=== PATIENT | male | born 1945 | race Caucasian/White ===

== ENCOUNTER 2017-12-27 06:05 | Day surgery (SDC) | payer OTHER ==
[2017-12-27] MEDS ORDERED: Ringers Lactate 1,000 ML IV ONE (07:07)
[2017-12-27] MEDS ORDERED: LIDOCAINE 1% MPF 5 ML VIAL ONE (07:41)
[2017-12-27] MEDS ORDERED: PROPOFOL 200 MG/20 ML VIAL IV ONE (07:41)
--- NOTE | 2017-12-27 08:10 | ENDO RPT ---
[address], [address] COLONOSCOPY PROCEDURE REPORT EXAM DATE: 12/27/2017 PATIENT NAME: Shea Campbell MR #: [id number] BIRTHDATE: 1945 ATTENDING: Iglesia Jefferson MD STATUS: outpatient RN FIELD: Daniella Alcala and Kym Benson RN INDICATIONS: The patient is a 72 yr old Male here for a colonoscopy due to bright red bleeding PROCEDURE PERFORMED: Colonoscopy with biopsy - cold polypectomy MEDICATIONS: Per Anesthesia. ESTIMATED BLOOD LOSS: None CONSENT: The patient understands the risks and benefits of the procedure and understands that these risks include, but are not limited to: sedation, allergic reaction, infection, perforation and/or bleeding. Alternative means of evaluation and treatment include, among others: physical exam, x-rays, and/or surgical intervention. The patient elects to proceed with this endoscopic procedure. DESCRIPTION OF PROCEDURE: During intra-op preparation period all mechanical medical equipment was checked for proper function. Hand hygiene and appropriate measures for infection prevention was taken. Procedure, possible complications, alternatives including, but not limited to possibility of bleeding, perforation, tear, infection, sepsis, need for surgery, need for blood transfusion, were explained to the patient. After the risks, benefits and alternatives of the procedure were thoroughly explained, Informed consent was verified, confirmed and timeout was successfully executed by the treatment team. The patient was placed in the left lateral position. A digital rectal exam was performed and revealed external hemorrhoids. After appropriate level of anesthesia, the scope was passed. The EC-[id number] ([id number]) endoscope was introduced through the anus and advanced to the cecum, which was identified by transillumination from the light source, the appendix, and the ileocecal valve. The quality of the prep was good. The instrument was then slowly withdrawn as the colon was fully examined. Scope withdrawal time was . COLON FINDINGS: A sessile polyp was found less than 0.3 cm in size approximately 120cm from anal verge. Retroflexed views revealed no abnormalities. The scope was then completely withdrawn from the patient and the procedure terminated. ADVERSE EVENTS: There were no complications. IMPRESSIONS: 1. Sessile polyp was found; polypectomy was performed in a piecemeal fashion using hot forceps 2. External hemorrhoids 3. Internal hemorrhoids RECOMMENDATIONS: 1. await biopsy results 2. follow-up: office 1 week(s) RECALL: for Colonoscopy, pending biopsy results. Iglesia Jefferson MD eSigned: Iglesia Jefferson MD 12/27/2017 8:09 AM cc: CPT CODES: ICD9 CODES: PATIENT NAME: Shea CampbellKiesha MR#: [id number]
== END 2017-12-27 08:43 | disposition home or self-care (01) ==
LOC: OR 06:05
PROVIDERS: ATTEND Surgery
PROC: 0DBE8ZX Excision of Large Intestine, Via Natural or Artificial Opening Endoscopic, Diagnostic (ICD-10-PCS; principal; 2017-12-27 07:30)
DX: D12.6 Benign neoplasm of colon, unspecified (principal); K64.8 Other hemorrhoids; K64.4 Residual hemorrhoidal skin tags; I25.10 Atherosclerotic heart disease of native coronary artery without angina pectoris; I25.2 Old myocardial infarction
CPT/HCPCS: 88305; J2704

== ENCOUNTER 2018-06-30 08:30 | Emergency (ER) | payer OTHER ==
[2018-06-30] MEDS ORDERED: BENZONATATE 100 MG CAP PO ONE (09:03)
--- NOTE | 2018-06-30 09:41 | EDPHYS ---
Physician Documentation [facility] Name: Shea Campbell Age: 72 yrs Sex: Male : 1945 Arrival Date: 06/30/2018 Time: 08:33 Bed 8 Private MD: ED Physician Jose Villa HPI: 06/30 09:18 This 72 yrs old Male presents to ER via Ambulatory with complaints of Cough, kb Congestion. 09:18 The patient or guardian reports cough, that is intermittent, described as moderate, kb with no sputum. Onset: The symptoms/episode began/occurred yesterday. Severity of symptoms: At their worst the symptoms were moderate, in the emergency department the symptoms are unchanged. Modifying factors: The symptoms are alleviated by nothing, the symptoms are aggravated by nothing. Associated signs and symptoms: Pertinent positives: sneezing, Pertinent negatives: chest pain, diarrhea, ear ache, fever, nausea, rhinorrhea, sore throat, vomiting. The patient has experienced a previous episode, approximately 3 months ago. The patient has not recently seen a physician. Pt reports cough that started last night. Denies fever, chills, chest pain, rhinorrhea or any other symptoms. Reports similar symptoms [address] Sandhu gave him an antibiotic so he wanted to come today to get an antibiotic started. States he recently got a new housecleaner floor for his c-pap machine and thinks that has something to do with his symptoms since this is the second time he has had this cough since then. Historical: - Allergies: 08:42 No Known Allergies; aa5 - Home Meds: 08:42 carvedilol oral oral [Active]; escitalopram oxalate oral oral [Active]; atorvastatin aa5 oral oral [Active]; Plavix Oral [Active]; fenofibrate oral oral [Active]; Omeprazole Oral [Active]; Levoxyl Oral [Active]; Ecotrin Oral [Active]; - PMHx: 08:42 Hyperlipidemia; Hypertension; Thyroid problem; aa5 - Immunization history:: Adult Immunizations up to date. - Ebola Screening: : No symptoms or risks identified at this time. - Social history:: Smoking status: Patient/guardian denies using tobacco. ROS: 09:17 Constitutional: Negative for fever, chills, and weight loss, ENT: Negative for injury, kb pain, and discharge, Neck: Negative for injury, pain, and swelling, Cardiovascular: Negative for chest pain, palpitations, and edema, Abdomen/GI: Negative for abdominal pain, nausea, vomiting, diarrhea, and constipation, MS/Extremity: Negative for injury and deformity, Skin: Negative for injury, rash, and discoloration, Neuro: Negative for headache, weakness, numbness, tingling, and seizure. 09:17 Respiratory: Positive for cough, with no reported sputum, Negative for dyspnea on exertion, hemoptysis, orthopnea, pleurisy, shortness of breath, sputum production, wheezing. Exam: 09:17 Constitutional: This is a well developed, well nourished patient who is awake, alert, kb and in no acute distress. Head/Face: Normocephalic, atraumatic. ENT: Nares patent. No nasal discharge, no septal abnormalities noted. Tympanic membranes are normal and external auditory canals are clear. Oropharynx with no redness, swelling, or masses, exudates, or evidence of obstruction, uvula midline. Mucous membranes moist. Neck: Trachea midline, no thyromegaly or masses palpated, and no cervical lymphadenopathy. Supple, full range of motion without nuchal rigidity, or vertebral point tenderness. No Meningismus. Chest/axilla: Normal chest wall appearance and motion. Nontender with no deformity. No lesions are appreciated. Cardiovascular: Regular rate and rhythm with a normal S1 and S2. No gallops, murmurs, or rubs. Normal PMI, no JVD. No pulse deficits. Respiratory: Lungs have equal breath sounds bilaterally, clear to auscultation and percussion. No rales, rhonchi or wheezes noted. No increased work of breathing, no retractions or nasal flaring. Abdomen/GI: Soft, non-tender, with normal bowel sounds. No distension or tympany. No guarding or rebound. No evidence of tenderness throughout. Skin: Warm, dry with normal turgor. Normal color with no rashes, no lesions, and no evidence of cellulitis. MS/ Extremity: Pulses equal, no cyanosis. Neurovascular intact. Full, normal range of motion. Neuro: Awake and alert, GCS 15, oriented to person, place, time, and situation. Cranial nerves II-XII grossly intact. Motor strength 5/5 in all extremities. Sensory grossly intact. Cerebellar exam normal. Normal gait. Vital Signs: 08:38 BP 145 / 80; Pulse 73; Resp 19; Temp 98.3(O); Pulse Ox 97% on R/A; Weight 77.11 kg (R); ae3 09:19 BP 135 / 75; Pulse 66; Resp 19; Temp 98.3(O); Pulse Ox 95% on R/A; la1 MDM: 08:46 Patient medically screened. kb 09:17 Data reviewed: vital signs, nurses notes. Data interpreted: Pulse oximetry: on room air kb is 99 %. Interpretation: normal. 09:40 Counseling: I had a detailed discussion with the patient and/or guardian regarding: the kb historical points, exam findings, and any diagnostic results supporting the discharge/admit diagnosis, radiology results, the need for outpatient follow up, a family practitioner, to return to the emergency department if symptoms worsen or persist or if there are any questions or concerns that arise at home. 06/30 08:47 Order name: Chest Pa And Lat (2 Views) XRAY; Complete Time: 10:17 kb Administered Medications: 08:49 Drug: Tessalon Perle 100 mg Route: PO; ae3 09:47 Follow up: Response: No adverse reaction ae3 Disposition: 22:02 Co-signature as Attending Physician, Jose Villa MD Available for consultation at ps1 all times. . Disposition: 06/30/18 09:40 Discharged to Home. Impression: Cough. - Condition is Stable. - Discharge Instructions: Cough, Adult, [id number]. - Prescriptions for Tessalon Perles 100 mg Oral Capsule - take 1 capsule by ORAL route every 8 hours As needed; 15 capsule. - Medication Reconciliation Form, Thank You Letter, Antibiotic Education, Prescription Opioid Use form. - Follow up: Private Physician; When: 2 - 3 days; Reason: Recheck today's complaints, Continuance of care, Re-evaluation by your physician. Follow up: Emergency Department; When: As needed; Reason: Worsening of condition. Signatures: Dispatcher [employer] Mirna Casanova, EVANSC CRUZ-Thania Barba, RN RN aa5 Will Mathew RN RN la1 Jose Villa MD MD [facility] Areli Godfrey ae3 Corrections: (The following items were deleted from the chart) 09:51 09:40 06/30/2018 09:40 Discharged to Home. Impression: Cough. Condition is Stable. ae3 Forms are Medication Reconciliation Form, Thank You Letter, Antibiotic Education, Prescription Opioid Use. Follow up: Private Physician; When: 2 - 3 days; Reason: Recheck today's complaints, Continuance of care, Re-evaluation by your physician. Follow up: Emergency Department; When: As needed; Reason: Worsening of condition. kb
--- NOTE | 2018-06-30 09:41 | ER ---
Nurse's Notes [facility] Name: Shea Campbell Age: 72 yrs Sex: Male : 1945 Arrival Date: 06/30/2018 Time: 08:33 Bed 8 Private MD: Diagnosis: Cough Presentation: 06/30 08:40 Presenting complaint: Patient states: cough that began . Pt states "I had the aa5 same cough 3 months ago and I was treated for it but it came back yesterday". 08:40 Transition of care: patient was not received from another setting of care. Onset of aa5 symptoms was June 2018. Risk Assessment: Do you want to hurt yourself or someone else? Patient reports no desire to harm self or others. Initial Sepsis Screen: Does the patient meet any 2 criteria? No. Patient's initial sepsis screen is negative. Does the patient have a suspected source of infection? No. Patient's initial sepsis screen is negative. Care prior to arrival: None. 08:40 Method Of Arrival: Ambulatory aa5 08:40 Acuity: LELA 3 aa5 Historical: - Allergies: 08:42 No Known Allergies; aa5 - Home Meds: 08:42 carvedilol oral oral [Active]; escitalopram oxalate oral oral [Active]; atorvastatin aa5 oral oral [Active]; Plavix Oral [Active]; fenofibrate oral oral [Active]; Omeprazole Oral [Active]; Levoxyl Oral [Active]; Ecotrin Oral [Active]; - PMHx: 08:42 Hyperlipidemia; Hypertension; Thyroid problem; aa5 - Immunization history:: Adult Immunizations up to date. - Ebola Screening: : No symptoms or risks identified at this time. - Social history:: Smoking status: Patient/guardian denies using tobacco. Screenin:24 Abuse screen: Denies threats or abuse. Nutritional screening: No deficits noted. la1 Tuberculosis screening: No symptoms or risk factors identified. Fall Risk None identified. Assessment: 09:03 General: Appears in no apparent distress. comfortable, Behavior is calm, cooperative. la1 Pain: Complains of pain in uvula, left aspect of posterior pharynx and right aspect of posterior pharynx Pain currently is 1 out of 10 on a pain scale. Neuro: Level of Consciousness is awake, alert, obeys commands, Oriented to person, place, time, situation, Appropriate for age. Cardiovascular: Heart tones S1 S2 present Patient's skin is warm and dry. Rhythm is regular. Respiratory: Reports cough that is productive, yellow mucous Airway is patent Respiratory effort is even, unlabored, Breath sounds are clear bilaterally. Respiratory: Reports patient states when he inhales deeply, it triggers increased coughing. GI: No signs and/or symptoms were reported involving the gastrointestinal system. : No signs and/or symptoms were reported regarding the genitourinary system. EENT: Throat is clear. EENT: Reports nasal congestion nasal discharge. Derm: Skin is intact, Skin is dry, Skin is pink, warm \\T\\ dry. Skin temperature is warm. Musculoskeletal: No signs and/or symptoms reported regarding the musculoskeletal system. 09:36 Reassessment: Patient appears in no apparent distress at this time. No changes from ae3 previously documented assessment. Patient and/or family updated on plan of care and expected duration. Pain level reassessed. Vital Signs: 08:38 BP 145 / 80; Pulse 73; Resp 19; Temp 98.3(O); Pulse Ox 97% on R/A; Weight 77.11 kg (R); ae3 09:19 BP 135 / 75; Pulse 66; Resp 19; Temp 98.3(O); Pulse Ox 95% on R/A; la1 ED Course: 08:33 Patient arrived in ED. mr 08:39 Bill MirnaDEVEN milton [facility]. kb 08:39 Jose Villa MD is Attending Physician. kb 08:40 Arm band placed on Patient placed in an exam room, on a stretcher. aa5 08:43 Bridgette Nieto, RN is Primary Nurse. ph 08:48 Triage completed. aa5 08:58 Patient moved to radiology via wheelchair. ae3 09:03 Chest Pa And Lat (2 Views) XRAY In Process Unspecified. EDMS 09:03 Patient moved back from radiology. la1 09:18 Bed in low position. Call light in reach. Adult w/ patient. pvc monitor on. Pulse la1 ox on. 09:50 No provider procedures requiring assistance completed. Patient did not have IV access ae3 during this emergency room visit. Administered Medications: 08:49 Drug: Tessalon Perle 100 mg Route: PO; ae3 09:47 Follow up: Response: No adverse reaction ae3 Outcome: 09:40 Discharge ordered by MD. diehl 09:50 Discharged to home ambulatory, with significant other. ae3 09:50 Condition: stable 09:50 Discharge instructions given to patient, significant other, Instructed on discharge instructions, follow up and referral plans. medication usage, Demonstrated understanding of instructions, follow-up care, Prescriptions given X 1. 09:51 Patient left the ED. ae3 Signatures: Dispatcher [employer] EDMS Mirna Khan, DEVEN ACTIVE DIRECTORY ARCHITECT-Antonette Diggs mr Gray, Thania, RN RN aa5 Will Mathew RN RN laBridgette Montes De Oca RN RN Areli Weir ae3
--- NOTE | 2018-06-30 10:13 | RAD REPORT ---
EXAM DESCRIPTION: Lizzeth De La Cruz (2 Views)06/30/2018 9:04 am CLINICAL HISTORY: Cough COMPARISON: March 2018 FINDINGS: The lungs appear clear of acute infiltrate. The heart is normal size IMPRESSION: No acute abnormalities displayed
== END 2018-06-30 09:51 | disposition home or self-care (01) ==
LOC: ER 08:30
DX: R05 Cough (principal); E78.5 Hyperlipidemia, unspecified; I10 Essential (primary) hypertension
CPT/HCPCS: 71046; 99284

== ENCOUNTER 2020-07-01 04:29 | Emergency (ER) | payer OTHER ==
--- NOTE | 2020-07-01 06:53 | EDPHYS ---
Physician Documentation [facility] Name: Shea Campbell Age: 74 yrs Sex: Male : 1945 Arrival Date: 07/01/2020 Time: 04:35 Bed 13 Private MD: Colt Sandhu R ED Physician Denzel Preciado HPI: 07/01 05:15 This 74 yrs old Male presents to ER via Wheelchair with complaints of Fall rn Injury, Head Injury-Adult. 05:15 Details of fall: The patient fell from an upright position. Onset: The symptoms/episode rn began/occurred just prior to arrival. Associated injuries: The patient sustained injury to the head. Severity of symptoms: At their worst the symptoms were mild, in the emergency department the symptoms are unchanged. It is unknown whether or not the patient has had similar symptoms in the past. The patient has not recently seen a physician. Reports got out of bed, fell, hit window sill, woke up on ground. states has vascular dementia and can have hallucinations at times, especially at night. Reports mild pain to right forehead, but no vision changes/focal neuro complaint/vomiting. . Historical: - Allergies: 04:54 No Known Allergies; bb - Home Meds: 04:54 atorvastatin 80 mg oral tab 1 tab once daily [Active]; carvedilol 12.5 mg oral tab 1 bb tab 2 times per day [Active]; clopidogrel 75 mg oral tab 1 tab once daily [Active]; fenofibrate 145 mg daily Oral [Active]; Levoxyl 25 mcg oral tab 1 tab once daily [Active]; donepezil 10 mg oral tab 1 tab twice a day [Active]; memantine 10 mg oral tab 1 tab 2 times per day [Active]; bupropion HCl 150 mg Oral Tb24 1 tab once daily [Active]; omeprazole 20 mg oral TbEC daily [Active]; Ecotrin 325 mg oral TbEC once daily [Active]; escitalopram oxalate 20 mg oral tab once daily [Active]; Magnesium Oxide Oral [Active]; Simeon Red [Active]; Clonazepam Oral [Active]; - PMHx: 04:54 Hyperlipidemia; Hypertension; Thyroid problem; vascular dementia; bb - Immunization history: Last tetanus immunization: unknown. - Social history:: Smoking status: Patient denies any tobacco usage or history of. - Family history:: not pertinent. - Hospitalizations: : No recent hospitalization is reported. ROS: 05:15 Constitutional: Negative for fever, chills, and weight loss, Eyes: Negative for injury, rn pain, redness, and discharge, Neck: Negative for injury, pain, and swelling, Cardiovascular: Negative for chest pain, palpitations, and edema, Respiratory: Negative for shortness of breath, cough, wheezing, and pleuritic chest pain, Abdomen/GI: Negative for abdominal pain, nausea, vomiting, diarrhea, and constipation, Back: Negative for injury and pain, MS/Extremity: Negative for injury and deformity, Skin: Negative for injury, rash, and discoloration, Neuro: + headache Exam: 05:15 Constitutional: This is a well developed, well nourished patient who is awake, alert, rn and in no acute distress. Head/Face: + moderate right forehead hematoma without laceration along hairline Eyes: Pupils equal round and reactive to light, extra-ocular motions intact. Lids and lashes normal. Conjunctiva and sclera are non-icteric and not injected. Cornea within normal limits. Periorbital areas with no swelling, redness, or edema. Neck: No midline tenderness or swelling Cardiovascular: Bradycardic, regular. No pulse deficits. Respiratory: No increased work of breathing, no retractions or nasal flaring. Abdomen/GI: Soft, non-tender MS/ Extremity: Pulses equal, no cyanosis. Neurovascular intact. Full, normal range of motion. Equal circumference. Neuro: Awake and alert, GCS 15, oriented to person, place, and situation. Cranial nerves II-XII grossly intact. Motor strength 5/5 in all extremities. Sensory grossly intact. Cerebellar exam normal. Vital Signs: 04:47 BP 147 / 78; Pulse 58; Resp 16 S; Temp 98(O); Pulse Ox 97% on R/A; Weight 97.07 kg (R); bb Height 5 ft. 10 in. (177.80 cm) (R); Pain 5/10; 07:08 BP 132 / 74; Pulse 54; Resp 16; Pulse Ox 99% on R/A; jm8 04:47 Body Mass Index 30.71 (97.07 kg, 177.80 cm) bb [place] Coma Score: 04:47 Eye Response: spontaneous(4). Verbal Response: oriented(5). Motor Response: obeys bb commands(6). Total: 15. Trauma Score (Adult): 04:47 Eye Response: spontaneous(1); Verbal Response: oriented(1); Motor Response: obeys bb commands(2); Systolic BP: > 89 mm Hg(4); Respiratory Rate: 10 to 29 per min(4); [place] Score: 15; Trauma Score: 12 MDM: 05:05 Patient medically screened. rn 06:49 Differential diagnosis: abrasion, closed head injury, contusion. Data reviewed: vital josefina signs, nurses notes, radiologic studies, CT scan. Data interpreted: quality assurance monitor body: rate is 58 beats/min, rhythm is regular, Pulse oximetry: on room air is 98 %. Counseling: I had a detailed discussion with the patient and/or guardian regarding: the historical points, exam findings, and any diagnostic results supporting the discharge/admit diagnosis. 07/01 05:06 Order name: CT Head C Spine rn 07/01 06:49 Order name: Ice pack josefina Administered Medications: No medications were administered Disposition: 07/01/20 06:53 Discharged to Home. Impression: Superficial injury of head - scalp and forehead hematoma, Fall due to bumping against object, Dementia in other diseases classified elsewhere - Vascular. - Condition is Stable. - Discharge Instructions: Dementia, Head Injury, Adult, Hematoma, Hematoma, [id number], Fall Prevention in the Home, [id number], Head Injury, Adult, Iyhd-xc-Bobc, Dementia, [id number]-[id number]. - Medication Reconciliation Form, Thank You Letter, Antibiotic Education, Prescription Opioid Use form. - Follow up: Colt Sandhu MD; When: 2 - 3 days; Reason: Recheck today's complaints, Continuance of care, Re-evaluation by your physician. - Problem is new. - Symptoms have improved. Signatures: Dispatcher [employer] EDDenzel Hatch MD MD cha Ballard, Brenda RN RN Dwaine Giang MD MD rn Malcaba, Joseph RN RN jm8 Corrections: (The following items were deleted from the chart) 06:53 06:53 07/01/2020 06:53 Discharged to Home. Impression: Superficial injury of head - josefina scalp and forehead hematoma; Fall due to bumping against object. Condition is Stable. Forms are Medication Reconciliation Form, Thank You Letter, Antibiotic Education, Prescription Opioid Use. Follow up: Colt Sandhu; When: 2 - 3 days; Reason: Recheck today's complaints, Continuance of care, Re-evaluation by your physician. Problem is new. Symptoms have improved. josefina 07:09 06:53 07/01/2020 06:53 Discharged to Home. Impression: Superficial injury of head - jm8 scalp and forehead hematoma; Fall due to bumping against object; Dementia in other diseases classified elsewhere - Vascular. Condition is Stable. Forms are Medication Reconciliation Form, Thank You Letter, Antibiotic Education, Prescription Opioid Use. Follow up: Colt Sandhu; When: 2 - 3 days; Reason: Recheck today's complaints, Continuance of care, Re-evaluation by your physician. Problem is new. Symptoms have improved. josefina
--- NOTE | 2020-07-01 06:53 | ER ---
Nurse's Notes [facility] Name: Shea Campbell Age: 74 yrs Sex: Male : 1945 Arrival Date: 07/01/2020 Time: 04:35 Bed 13 Private MD: Colt Sandhu R Diagnosis: Superficial injury of head-scalp and forehead hematoma;Fall due to bumping against object;Dementia in other diseases classified elsewhere-Vascular Presentation: 07/01 04:47 Chief complaint: Spouse and/or significant other states: pt fell out of bed at approx bb 0300 this morning not sure is he had LOC now has large bump on forehead and pain in head and around right eye. Care prior to arrival: None. Mechanism of Injury: Fall. Trauma event details: Injury occurred in the [facility], Injury occurred: at home. Injury occurred: July 01, 2020. 04:47 Acuity: LELA 3 bb 04:47 Method Of Arrival: Wheelchair bb 04:50 Coronavirus screen: At this time, the client does not indicate any symptoms associated bb with coronavirus-19. Ebola Screen: No symptoms or risks identified at this time. Initial Sepsis Screen: Does the patient meet any 2 criteria? No. Patient's initial sepsis screen is negative. Does the patient have a suspected source of infection? No. Patient's initial sepsis screen is negative. Risk Assessment: Do you want to hurt yourself or someone else? Patient reports no desire to harm self or others. Onset of symptoms was July 01, 2020. Trauma Activation: Not Applicable Physician: ED Physician; Name: ; Notified At: ; Arrived At: Physician: General Surgeon; Name: ; Notified At: ; Arrived At: Physician: Radiology; Name: ; Notified At: ; Arrived At: Physician: Respiratory; Name: ; Notified At: ; Arrived At: Physician: Lab; Name: ; Notified At: ; Arrived At: Historical: - Allergies: 04:54 No Known Allergies; bb - Home Meds: 04:54 atorvastatin 80 mg oral tab 1 tab once daily [Active]; carvedilol 12.5 mg oral tab 1 bb tab 2 times per day [Active]; clopidogrel 75 mg oral tab 1 tab once daily [Active]; fenofibrate 145 mg daily Oral [Active]; Levoxyl 25 mcg oral tab 1 tab once daily [Active]; donepezil 10 mg oral tab 1 tab twice a day [Active]; memantine 10 mg oral tab 1 tab 2 times per day [Active]; bupropion HCl 150 mg Oral Tb24 1 tab once daily [Active]; omeprazole 20 mg oral TbEC daily [Active]; Ecotrin 325 mg oral TbEC once daily [Active]; escitalopram oxalate 20 mg oral tab once daily [Active]; Magnesium Oxide Oral [Active]; Simeon Red [Active]; Clonazepam Oral [Active]; - PMHx: 04:54 Hyperlipidemia; Hypertension; Thyroid problem; vascular dementia; bb - Immunization history: Last tetanus immunization: unknown. - Social history:: Smoking status: Patient denies any tobacco usage or history of. - Family history:: not pertinent. - Hospitalizations: : No recent hospitalization is reported. Screenin:08 Abuse screen: Denies threats or abuse. Denies injuries from another. Nutritional jm8 screening: No deficits noted. Tuberculosis screening: No symptoms or risk factors identified. Fall Risk Fall in past 12 months (25 points). Primary Survey: 05:08 NO uncontrolled hemorrhage observed. A: The patient is alert. Airway: patent, No jm8 supplemental oxygen in use on arrival. Trachea midline. Breathing/Chest: Respiratory pattern: regular, Respiratory effort: spontaneous, unlabored. Circulation: Skin color: pink, Skin temperature: warm. Disability Alert. Exposure/Environment: A warming method has been applied: A warm blanket has been provided to the patient. Reassessment Airway Airway Patent Oxygen No O2 Breathing/Chest Respiratory pattern Regular Respiratory effort Spontaneous Unlabored Circulation Color Addis Temperature Warm Disability Alert. Assessment: 05:09 General: Appears in no apparent distress. comfortable, Behavior is calm, cooperative, jm8 appropriate for age. Pain: Complains of pain in forehead Pain currently is 2 out of 10 on a pain scale. Quality of pain is described as throbbing, Pain began 2 hours ago. Also complains of no other associated symptoms. Neuro: No deficits noted. Level of Consciousness is awake, alert, obeys commands, Oriented to person, place, time. EENT: No deficits noted. Cardiovascular: No deficits noted. Respiratory: No deficits noted. Airway is patent Trachea midline Respiratory effort is even, unlabored. GI: No deficits noted. : No deficits noted. Derm: No deficits noted. Musculoskeletal: No deficits noted. Vital Signs: 04:47 BP 147 / 78; Pulse 58; Resp 16 S; Temp 98(O); Pulse Ox 97% on R/A; Weight 97.07 kg (R); bb Height 5 ft. 10 in. (177.80 cm) (R); Pain 5/10; 07:08 BP 132 / 74; Pulse 54; Resp 16; Pulse Ox 99% on R/A; jm8 04:47 Body Mass Index 30.71 (97.07 kg, 177.80 cm) bb Hitesh Coma Score: 04:47 Eye Response: spontaneous(4). Verbal Response: oriented(5). Motor Response: obeys bb commands(6). Total: 15. Trauma Score (Adult): 04:47 Eye Response: spontaneous(1); Verbal Response: oriented(1); Motor Response: obeys bb commands(2); Systolic BP: > 89 mm Hg(4); Respiratory Rate: 10 to 29 per min(4); Hitesh Score: 15; Trauma Score: 12 ED Course: 04:35 Patient arrived in ED. es 04:35 Colt Sandhu MD is Private Physician. es 04:48 Triage completed. bb 04:54 Arm band placed on Patient placed in an exam room, on a stretcher, on pulse oximetry. bb Family accompanied patient. 05:05 Dwaine Campos MD is Attending Physician. rn 05:11 Patient has correct armband on for positive identification. Placed in gown. Bed in low jm8 position. Call light in reach. Side rails up X2. Adult w/ patient. 05:12 Patient maintains SpO2 saturation greater than 95% on room air. Thermoregulation: warm jm8 blanket given to patient. 05:24 CT Head C Spine In Process Unspecified. EDMS 06:46 Attending Physician role handed off by Dwaine Campos MD josefina 06:46 Denzel Preciado MD is Attending Physician. josefina 06:51 Colt Sandhu MD is Referral Physician. josefina 07:09 No provider procedures requiring assistance completed. Patient did not have IV access jm8 during this emergency room visit. Administered Medications: No medications were administered Intake: 05:12 PO: 0ml; Total: 0ml. jm8 Outcome: 06:53 Discharge ordered by . josefina 07:09 Discharged to home jm8 07:09 Condition: good 07:09 Patient's length of stay was not longer than 2 hours. 07:09 Discharge instructions given to patient, family, Instructed on discharge instructions, jacek follow up and referral plans. Demonstrated understanding of instructions, follow-up care. 07:09 Patient left the ED. jm8 Signatures: Dispatcher [employer] Denzel Lugo MD MD cha Salyer, Edna es Ballard, Brenda, RN RN bb Nieto, Roman, MD MD rn Malcaba, Joseph, RN RN jmNatalie
[2020-07-01 07:17] VITALS: TEMP 98
[2020-07-01 07:28] VITALS: BP 132/74; O2SAT 99
--- NOTE | 2020-07-01 11:42 | RAD REPORT ---
EXAM DESCRIPTION: CT - Head C Spine Mpr Wo Con - 07/01/2020 6:53 am CLINICAL HISTORY: The patient is 74 years old and is Male; fall, head injury TECHNIQUE: Axial computed tomography images of the head/brain and cervical spine without intravenous contrast. Sagittal and coronal reformatted images were created and reviewed. This CT exam was pe rformed using one or more of the following dose reduction techniques: automated exposure control, a djustment of the mA and/or kV according to patient size, and/or use of iterative reconstruction techn ique. COMPARISON: No relevant prior studies available. FINDINGS: BRAIN: Unremarkable. No hemorrhage. No significant white matter disease. No edema. VENTRICLES: Unremarkable. No ventriculomegaly. SKULL: No acute fracture. SINUSES: Unremarkable as visualized. No acute sinusitis. MASTOID AIR CELLS: Unremarkable as visualized. No mastoid effusion. VERTEBRAE: The vertebral body heights and alignment are maintained. No acute fracture. DISCS/SPINAL CANAL/NEURAL FORAMINA: Multilevel degenerative change of the spine is present. Mini mal intervertebral disc space narrowing with mild osteophyte formation is present. No significant can al stenosis is noted. SOFT TISSUES: A large frontal scalp hematoma is present. LUNG APICES: Unremarkable as visualized. IMPRESSION: 1. No acute intracranial findings. Large frontal scalp hematoma. 2. Spondylosis of the cervical spine without acute findings. Electronically signed by: Amber Huitron MD 07/01/2020 5:40 AM CDT Due to temporary technical issues with the PACS/Fluency reporting system, reports are being signed by the in house radiologist without review as a courtesy to ensure prompt reporting. The interpreting r adiologist is fully responsible for the content of the report.
== END 2020-07-01 07:09 | disposition home or self-care (01) ==
LOC: ER 04:29
DX: S00.83XA Contusion of other part of head, initial encounter (principal); W18.09XA Striking against other object with subsequent fall, initial encounter; Y92.009 Unspecified place in unspecified non-institutional (private) residence as the place of occurrence of the external cause; F01.50 Vascular dementia, unspecified severity, without behavioral disturbance, psychotic disturbance, mood disturbance, and anxiety; I10 Essential (primary) hypertension; E78.5 Hyperlipidemia, unspecified
CPT/HCPCS: 70450; 72125; 99284

== ENCOUNTER 2020-07-24 16:33 | Emergency (ER) | payer OTHER ==
--- OUTSIDE RECORDS SUMMARY | 2020-07-24 16:36 | XMS REPORT | Continuity of Care Document ---
:1945 Author Organization [facility] t Address [address] [place] [address] Care Team Providers Name Role Phone Nadya YOUNG Primary Care Physician Frannie YOUNG RKiesha Attending Clinician Payers Payer Name Policy Type Policy Effective Date Expiration Date Sour ce Number MEDICAREMEDICARE PART [id number] [facility] A AND 00:00:00 Rastafari [id number] 2013- [place], [place] [id number] Mitzy ston OF 00:00:00 Rastafari [id number] [id number] Problems Condition Condition Condition Status Onset Resolution Last Treating Co mments Source Name Details Category Date Date Treatment Clinician Date SOB SOB Disease Active [place] (shortness (shortness 9-10 Me thodi of breath) of breath) 00:00: st 00 Chest pain Chest pain Disease Active [place] 9-10 [facility]: st 00 Bilateral Bilateral Disease Active Mitzy ston carotid carotid 7-17 [facility] bruits bruits 00:00: st 00 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 [place] artery artery 2-12 [facility] disease disease 00:00: st involving involving 00 [place] eagle coronary coronary 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[place] 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 angina angina pectoris pectoris CAD in CAD in Disease Active 2015-02 [place] eagle 1-09 [facility] artery artery 00:00: st 00 Essential Essential Disease Active 2015-02 Mitzy deal hypertensi hypertensi 03-07 Me thodi on on 00:00: st 00 Hyperlipid Hyperlipid Disease Active 2015-02 H guero emia emia 03-07 [facility] 00:00: st 00 PAD PAD Disease Active 2015-02 [place] (periphera (periphera 03-07 Me thodi l artery l artery 00:00: st disease) disease) 00 History of History of Disease Active 2015-02 Lalit jack coronary coronary 03-07 [facility] i artery artery 00:00: st stent stent 00 placement placement 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 Family History Family Member Diagnosis Comments Start Date Stop Date Source Other Coronary artery disease guero Rastafari Social History Social Habit Start Date Stop Date Quantity Comments Source Tobacco use and 2017-09-12 2017-09-12 Never used [facility] fiordalizaodi exposure 00:00:00 00:00:00 Alcohol intake 2017-09-12 2017-09-12 Current drinker [place] Rastafari 00:00:00 00:00:00 of alcohol (finding) Sex Ass[birth year] At [birth year] M [facility] fiordalizaodist 00:00:00 00:00:00 Smoking Status Start Date Stop Date Source Never smoker [facility] Medications Ordered Filled Start Stop Current Ordering Indication Dosage Frequency Signature Comments Components Source Medication Medication Date Date Medication? Clinician (SIG) Name Name MULTIVIT-CA Yes Take by Mitzy deal NERALS/FERR 9-10 mouth. [facility] i OUS FUM 15:14: st (MULTI 12 VITAMIN ORAL) aspirin 325 2018- Yes 325mg QD Take 325 [place] MG tablet 9-10 mg by [facility] 15:14: mouth st 12 daily. levothyroxi Yes 25ug QD Take 25 Mitzy danieln ne 9-10 mcg by [facility] (SYNTHROID, 15:14: mouth st LEVOXYL) 25 12 every mcg tablet morning. lansoprazol Yes TAKE 1 [place] 8-13 CAPSULE BY [facility] (PREVACID) 00:00: MOUTH ONCE s t 30 MG 00 DAILY 30 capsule MINUTES BEFORE BREAKFAST SHINGRIX, Yes PHARMACIST Inocente morris PF, 50 8-12 ADMINISTER [facility] mcg/0.5 mL 00:00: ED st suspension 00 IMMUNIZATI for ON reconstitut ADMINISTER ion IM ED AT TIME injection OF DISPENSING atorvastati Yes 80mg QD Take 80 mg Yao acuna (LIPITOR) 6-11 by mouth Meth gris 80 MG 00:00: every st tablet 00 evening. clopidogrel 2015-02 Yes Jarod acuna (PLAVIX) 75 2-03 [facility] mg tablet 00:00: st 00 fluorouraci 2015-02 Yes Jarod acuna l (EFUDEX) 1-29 [facility] 5 % cream 00:00: st 00 fenofibrate 2015-02 Yes Jarod acuna (TRICOR) 1-13 [facility] 145 MG 00:00: st tablet 00 escitalopra 2015-02 Yes Jarod acuna m (LEXAPRO) 1-11 [facility] 10 MG 00:00: st tablet 00 carvedilol Yes 12.5mg Q.5D Take 12.5 [place] (COREG) 9-20 mg by [facility] 12.5 MG 00:00: mouth 2 st tablet 00 (two) times a day with meals. Vital Signs Vital Name Observation Time Observation Value Comments Source Systolic blood 2019-12-03 10:00:00 141 mm[Hg] Jarod n Rastafari pressure Diastolic blood 2019-12-03 10:00:00 78 mm[Hg] Lucien Mendoza pressure Heart rate 2019-12-03 10:00:00 64 /min Yao Mendoza Body height 2019-12-03 10:00:00 177.8 cm Yao Mendoza Body weight 2019-12-03 10:00:00 98.884 kg Yao Mendoza BMI 2019-12-03 10:00:00 31.28 kg/m2 Yao Mendoza Procedures Procedure Date / Time Performed Performing Clinician Sour e ECG 12-LEAD 2019-12-03 09:59:16 Bertha Gilman Meth odist Plan of Care Planned Activity Planned Date Details Comments Source Future Scheduled 2020-09-27 INFLUENZA VACCINE Jarod acuna Rastafari Test 00:00:00 [code = INFLUENZA VACCINE] Future Scheduled 1997-08-18 COLONOSCOPY SCREENING Inocente Mendoza Test 00:00:00 [code = COLONOSCOPY SCREENING] Future Scheduled 1997-08-18 SHINGLES VACCINES (#1) Lalit jack Rastafari Test 00:00:00 [code = SHINGLES VACCINES (#1)] Future Scheduled 1965-08-18 Hepatitis C screening Inocente morris Rastafari Test 00:00:00 (procedure) [code = 942206742] Future Scheduled 1959 COVID-19 VACCINE (1) Mitzy deal Rastafari Test 00:00:00 [code = COVID-19 VACCINE (1)] Future Scheduled 1953-08-18 65+ PNEUMOCOCCAL Yoa Rastafari Test 00:00:00 VACCINE (1 of 2 - PPSV23) [code = 65+ PNEUMOCOCCAL VACCINE (1 of 2 - PPSV23)] Encounters Start End Encounter Admission Attending Care Care Encounter Source Date/Time Date/Time Type Type Clinicians Facility Department ID 2019-12-03 2019-12-03 Outpatient FRANNIE [facility] [id number] 483 [place] 00:00:00 00:00:00 BERTHA [address] Results Test Description Test Time Test Comments Results Result Comments Source ECG 12 lead 2019-12-03 15:40:33 Test Item Value Reference Range Interpretation Comme nts Ventricular rate (test code = 253) 60 Atrial rate (test code = 255) 60 PA interval (test code = 266) 212 QRSD interval (test code = 260) 96 QT interval (test code = 264) 422 QTC interval (test code = 265) 422 P axis 1 (test code = 267) 62 QRS axis 1 (test code = 268) 5 T wave axis (test code = 270) 75 EKG impression (test code = 273) Sinus rhythm with 1st degree AV block-Inferior infarct , age undetermined-Anterior infarct (cited on or before 02-SEP-2008)-Abnormal ECG-In automated comparison with ECG of 06-NOV-2018 14:13,-No significant change was found- Yao Mendoza
--- NOTE | 2020-07-24 17:36 | ER ---
Nurse's Notes [facility] Name: Shea Campbell Age: 74 yrs Sex: Male : 1945 Arrival Date: 07/24/2020 Time: 16:34 Bed Waiting Private MD: Kennye Torres; Shawn Mensah F; Colt Sandhu R Diagnosis: Presentation: 07/24 16:54 Chief complaint: Patient states: Shaking, anxious for 2 days. Clonazepam did help last ll1 night. Hasn't taken any today. Easily tearful, states he not SI or HI though. thinks he is suicidal. stated he gets anxious every evening, but worse since yesterday. Legs feel shaky and weak. Coronavirus screen: Client denies travel out of the [place] in the last 14 days. At this time, the client does not indicate any symptoms associated with coronavirus-19. Ebola Screen: Patient denies travel to an Ebola-affected area in the 21 days before illness onset. Initial Sepsis Screen: Does the patient meet any 2 criteria? No. Patient's initial sepsis screen is negative. Does the patient have a suspected source of infection? No. Patient's initial sepsis screen is negative. Risk Assessment: Do you want to hurt yourself or someone else? Patient reports no desire to harm self or others. Onset of symptoms was July 23, 2020. 16:54 Method Of Arrival: Wheelchair ll1 16:54 Acuity: LELA 3 ll1 Historical: - Allergies: 16:54 No Known Allergies; ll1 - PMHx: 16:54 Hyperlipidemia; Hypertension; Thyroid problem; VASCULAR DEMENTIA; ll1 - Immunization history:: Client reports having NOT received the Covid vaccine. Flu vaccine is up to date. - Social history:: Smoking status: Patient denies any tobacco usage or history of. Vital Signs: 16:54 BP 125 / 102; Pulse 64; Resp 17; Temp 98.3; Pulse Ox 98% ; Weight 97.07 kg; Height 5 ll1 ft. 10 in. (177.80 cm); Pain 0/10; 16:54 Body Mass Index 30.71 (97.07 kg, 177.80 cm) ll1 ED Course: 16:34 Patient arrived in ED. as 16:34 Colt Sandhu MD is Private Physician. as 16:35 Shawn Mensah MD is Private Physician. as 16:35 Kenney Torres MD is Private Physician. as 16:51 Arm band placed on. ll1 16:57 Triage completed. ll1 17:24 Parish Sullivan MD is Attending Physician. kdr Administered Medications: No medications were administered Outcome: 17:36 Patient left the ED. ll1 Signatures: Parish Sullivan MD MD kdr Alondra Jefferson as Jacinda Bauer, RN RN ll1 Corrections: (The following items were deleted from the chart) 16:57 16:54 Chief complaint: Patient states: Shaking, anxious for 2 days. Clonazepam did help ll1 last night. Hasn't taken any today. Easily tearful, states he not SI or HI though. thinks he is suicidal. stated he gets anxious every evening, but worse since yesterday. ll1
[2020-07-24 17:40] VITALS: BP 125/102; TEMP 98.3; O2SAT 98
== END 2020-07-24 17:36 | disposition left against medical advice (07) ==
LOC: ER 16:33
DX: Z53.21 Procedure and treatment not carried out due to patient leaving prior to being seen by health care provider (principal)
CPT/HCPCS: 99281

== ENCOUNTER 2021-03-11 11:55 | Day surgery (SDC) | payer OTHER ==
--- NOTE | 2021-03-08 14:19 | RAD REPORT ---
EXAM DESCRIPTION: RAD - Chest Pa And Lat (2 Views) - 03/08/2021 2:13 pm CLINICAL HISTORY: Pre Op pending heart cath Chest pain. COMPARISON: Chest Pa And Lat (2 Views) dated 06/30/2018; Chest Pa And Lat (2 Views) dated 04/03/2018; Ch est Pa And Lat (2 Views) dated 09/29/2017; CHEST PA AND LAT 2 VIEW dated 11/06/2012 FINDINGS: The lungs are clear. The heart is normal in size. No displaced fractures. Small to moderat e hiatal hernia.
[2021-03-08 14:30] LABS: Absolute Lymphocytes (CBC) 1.5 K/uL (0.7-4.9); Hematocrit 46.7 % (39.6-49.0); Lymphocytes % 24.9 % (15.3-44.8); MPV 8.5 fL (7.6-11.3); RBC Red Blood Cell Count 5.01 M/uL (4.33-5.43)
[2021-03-08 14:33] LABS: Protime INR 0.92
--- NOTE | 2021-03-10 07:51 | EKG ---
Test Date: 2021-03-08 Test Time: 13:51:55 [place] Supervisor: LETY MEASUREMENT RESULTS: Intervals: Rate: 66 MI: 206 QRSD: 82 QT: 434 QTc: 454 [place]: P: 40 MI: 206 QRS: -23 T: 64 INTERPRETIVE STATEMENTS: Normal sinus rhythm Inferior infarct, age undetermined Anterior infarct, age undetermined Abnormal ECG Compared to ECG 11/01/2000 16:30:00 Myocardial infarct finding now present Electronically Signed On 03-10-21 07:46:08 CUT OFF MAN by Bao Mejia
[~2021-03-11 11:55] MED LIST: HEPA 1000U/500MLS 2,000 UNIT/1,000 ML BAG IV ONE
[2021-03-11] MEDS ORDERED: NA CHLORIDE 0.9% 500 ML ONE (11:59)
[2021-03-11 12:31] VITALS: TEMP 97.1
[2021-03-11] MEDS ORDERED: HEPARIN 5000 UNIT/ML 1 ML VIAL ONE ×2 (13:06→13:42)
[2021-03-11] MEDS ORDERED: VERAPAMIL HCL 10 MG/4 ML VIAL IV ONE (13:06)
[2021-03-11] MEDS ORDERED: MIDAZOLAM HCL 2 MG/2 ML INJ ONE (13:06)
[2021-03-11] MEDS ORDERED: NITROGLYCERIN 100 MCG/ML SYR (for cath lab use only) IV ONE (13:07)
[2021-03-11] MEDS ORDERED: FENTANYL CITR 100 MCG/2 ML ONE (13:07)
[2021-03-11] MEDS ORDERED: ATROPINE SULF 1 MG/10 ML SYR IV ONE (13:07)
--- NOTE | 2021-03-11 14:38 | OP ---
Date of Procedure: 03/11/2021 Surgeon: AVEL CASTRO Procedure Performed: Selective coronary angiogram. Indication: Abnormal stress test. Access: Right radial artery 6-Kyrgyz closed with TR band. Complications: None. Bleeding: Less than 10 mL. Anesthesia: Total sedation time was 20 minutes. Description Of Procedure: After risks, benefits, and alternatives were explained, the patient agreed to the procedure and signed informed consent. The patient was brought into the cardiac catheterizat ion laboratory, prepped and draped in usual sterile fashion. Then, I accessed right radial artery us ing pediatric micropuncture kit and placed a 6-Kyrgyz Slender sheath. I took a 6-Kyrgyz JR4 catheter , engaged the RCA, took standard views and then exchanged with 6-Kyrgyz JL3.5 catheter, engaged the l eft main, took standard views. I then removed the catheter and sheath and placed TR band with good h emostasis. 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 2.LAD; large vessel with patent proximal to mid stent, diagonal branches with mild luminal irregular ities and second diagonal branch has ostial 60% and distal portion of the LAD has a 70% focal stenosi s. Very small vessel. 3.LCX has proximal 20% to 30% diffuse stenosis. No significant disease otherwise. 4.RCA; large and dominant with aneurysmal portion proximally and mid portion, there is diffuse 30% s tenosis and there is a stent that is patent with 1% iSR. Then, the PDA has a focal area of 60% to 70 % with KIAH-3 flow. Conclusion: Moderate coronary artery disease with patent stents as outlined above. Recommendations: Medical management. If the patient starts having significant chest pain symptoms, then we will target the PDA lesion. SR/MODL Voice ID: [id number] Report ID: [id number]
[2021-03-11 15:43] VITALS: BP 153/84; O2SAT 96
== END 2021-03-11 14:40 | disposition home or self-care (01) ==
LOC: CCL 11:55
PROVIDERS: ATTEND Internal Medicine
DX: I25.10 Atherosclerotic heart disease of native coronary artery without angina pectoris (principal); I73.9 Peripheral vascular disease, unspecified; I10 Essential (primary) hypertension; E78.5 Hyperlipidemia, unspecified; Z95.5 Presence of coronary angioplasty implant and graft; Z20.822 Contact with and (suspected) exposure to COVID-19; Z82.49 Family history of ischemic heart disease and other diseases of the circulatory system
CPT/HCPCS: 93005; 85025; 80048; 36415; 85610; 85730; 71046; 93454; U0003; C1893; J1644 ×2; J2250; J3010; J7040

== ENCOUNTER 2022-08-06 18:03 | Emergency (ER) | payer OTHER ==
--- OUTSIDE RECORDS SUMMARY | 2022-08-06 18:12 | XMS REPORT | Continuity of Care Document ---
:1945 Author Organization [facility] t Address [address] [place] [id number] Care Team Providers Name Role Phone Nadya YOUNG, [place] Primary Care Physician [phone] Watkins_H Attending Clinician Unavailable Taiwo Reynolds Attending Clinician Unavailable Lakhwinder Davis Attending Clinician Unavailable MARLON EAST Attending Clinician Unavailable MARLON EAST Attending Clinician Unavailable Gustavo Radford MD Attending Clinician Aman Ward RN Attending Clinician Unavailable Blu Bhatti Attending Clinician Unavailable MADINA HILTON Attending Clinician Unavailable Madina Bell Attending Clinician Sylvie Kang Attending Clinician Unavailable Doctor Unassigned, Rudyard Attending Clinician Unavailable GINA WILLOUGHBY Attending Clinician Unavailable Gina Paez Attending Clinician Lenora Patel RN Attending Clinician Unavailable Camilla Boateng MD Attending Clinician CAMILLA BOATENG Attending Clinician Unavailable Fernando Woodward MD Attending Clinician BERTHA KATHLEEN Attending Clinician Unavailable Maynor_Lalit Admitting Clinician Unavailable Taiwo Reynolds Admitting Clinician Unavailable Physician, No Primary or Family Admitting Clinician UnavailMADINA Zazueta Admitting Clinician Unavailable MARLON EAST Admitting Clinician Unavailable CAMILLA BOATENG Admitting Clinician Unavailable Camilla Boateng MD Admitting Clinician Payers Payer Name Policy Type Policy Number Effective Date Expiration Date S holden MEDICARE B-[place]: [id number] 2012 [employer] 00:00:00 MEDICARE PART A [id number] 2012 \\T\\ B 00:00:00 DEJAN [id number] 2012 00:00:00 Problems Condition Condition Condition Status Onset Resolution Last Treating Co mments Source Name Details Category Date Date Treatment Clinician Date Personal Personal Disease Active 2021-02 Unive rs history of history of 0-28 it y of other other 00:00: [place] malignant malignant 00 Medi jessica neoplasm neoplasm Branch of kidney of kidney Incomplete Incomplete Disease Active 2021-02 U nivers emptying emptying 0-28 it[place] of [place] Benign Benign Disease Active 2021-02 [facility] prostatic prostatic 0-28 it[place] of hyperplasi hyperplasi [place] a with 00 Medical urinary urinary Branch obstructio obstructio n n Closed Closed Disease Active [facility] fracture fracture 9-05 [place] of of lumbar of lumbar 00:[place] vertebral vertebral 00 [place] body body Branch SOB SOB Disease Active Methodi (shortness (shortness 9-10 st of breath) of breath) 00:00: [facility] 00 l Chest pain Chest pain Disease Active M ethodi 9-10 st 00:00: [facility]osp[facility] 00 l Bilateral Bilateral Disease Active Met [facility] carotid carotid 7-17 st bruits bruits 00:00: Hospita 00 l 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 Meth[facility] di artery artery 2-12 st disease disease 00:00: Hospita involving involving 00 l [place] coronary coronary 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[place] 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 angina 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 03-07 ity of disease disease 00:00: [place] involving involving 00 Medi jessica [place] Branch coronary coronary 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[place] 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 angina angina pectoris 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 00:00: Hospit a 00 l CAD in CAD in Disease Active 2015-02 Methodi [place] 03-07 st artery artery 00:00: Hospita 00 l Essential Essential Disease Active 2015-02 Met [facility] hypertensi hypertensi 03-07 st on on 00:00: Hospita 00 l Hyperlipid Hyperlipid Disease Active 2015-02 M ethodi emia emia 03-07 st 00:00: Hospita 00 l PAD PAD Disease Active 2015-02 Methodi (periphera (periphera 03-07 st l artery l artery 00:00: Hospit a disease) disease) 00 l History of History of Disease Active 2015-02 M ethodi coronary coronary 03-07 st artery artery 00:00: Hospita stent stent 00 l placement placement Allergies, Adverse Reactions, Alerts Allergy Allergy Status Severity Reaction(s) Onset Inactive Treating Comm ents Source Name Type Date Date Clinician No Known DA Active [facility]ie 4-01 [place] 00:[facility]: e 00 [facility] No Known DA Active [facility] Allergie 3-20 Clear s 00:00: [place] 00 [facility] No Known Propensi Active 2015-02 Method i Drug ty to 03-07 st Allergie adverse 00:00: Hospita s reaction 00 l s to drug NO KNOWN Drug Active [facility] ALLERGIE Class ity of S [facility] Family History Family Member Diagnosis Comments Start Date Stop Date Source Other Coronary artery [facility] disease Social History Social Habit Start Date Stop Date Quantity Comments Source Gender identity 2018-11-05 Identifies as Method ist 20:32:19 male gender Hospital (finding) Sexual orientation [facility] History of Tobacco [facility] - Use [facility] Sex Assigned At [facility] - [facility] Exposure to 2021-12-19 2021-12-29 Not sure University of SARS-CoV-2 (event) 00:00:00 08:43:00 [facility] Tobacco use and 2021-11-01 2021-11-01 Smokeless tobacco Un iversity of exposure 00:00:00 00:00:00 non-user [facility] Alcohol intake 2017-09-12 2017-09-12 Current drinker [facility] 00:00:00 00:00:00 of alcohol [facility] (finding) History of Social 2016-02-09 2016-02-[address] function 00:00:00 00:00:00 Hospital Smoking Status Start Date Stop Date Source Tobacco smoking consumption [facility] Branch Never smoked tobacco [facility] Medications Ordered Filled Start Stop Current Ordering Indication Dosage Frequency Signature Comments Components Source Medication Medication Date Date Medication? Clinician (SIG) Name Name aspirin 2021-02 Yes 1 tablet Univer s E.C. 0-28 ity of (ECOTRIN) 08:46: [place] 325 mg EC 15 Medical tablet Branch aspirin 2021-02 Yes 1 tablet Univer s E.C. 0-28 ity of (ECOTRIN) 08:46: [place] 325 mg EC 15 Medical tablet Branch aspirin 2021-02 Yes 1 tablet Univer s E.C. 0-28 ity of (ECOTRIN) 08:46: [place] 325 mg EC 15 Medical tablet Branch aspirin 2021-02 Yes 1 tablet Univer s E.C. 0-28 ity of (ECOTRIN) 08:46: [place] 325 mg EC 15 Medical tablet Branch aspirin 2021-02 Yes 1 tablet Univer s E.C. 0-28 ity of (ECOTRIN) 08:46: [place] 325 mg EC 15 Medical tablet Branch cyclobenzap 2021-02 Yes [id number] 5mg Take 1 Univers rine 5 mg 0-28 [id number] tablet by ity of tablet 00:00: mouth 3 (three) Medical times Branch daily as needed for Muscle Spasms. cyclobenzap 2021-02 Yes [id number] 5mg Take 1 Univers rine 5 mg 0-28 [id number] tablet by ity of tablet 00:00: mouth 3 00 (three) Medical times Branch daily as needed for Muscle Spasms. cyclobenzap 2021-02 Yes [id number] 5mg Take 1 Univers rine 5 mg 0-28 [id number] tablet by ity of tablet 00:00: mouth 3 (three) Medical times Branch daily as needed for Muscle Spasms. cyclobenzap 2021-02 Yes [id number] 5mg Take 1 Univers rine 5 mg 0-28 [id number] tablet by ity of tablet 00:00: mouth 3 [place] 00 (three) Medical times Branch daily as needed for Muscle Spasms. cyclobenzap 2021-02 Yes [id number] 5mg Take 1 Univers rine 5 mg 0-28 [id number] tablet by ity of tablet 00:00: mouth 3 [place] 00 (three) Medical times Branch daily as needed for Muscle Spasms. cyclobenzap 2021-02 Yes [id number] 5mg Take 1 Univers rine 5 mg 0-28 [id number] tablet by ity of tablet 00:00: mouth 3 [place] 00 (three) Medical times Branch daily as needed for Muscle Spasms. HYDROcodone 2021-02 No [id number] 1{tbl} Take 1 U nivers -acetaminop 0-28 11-05 tablet by it y of hen (NORCO) 00:00: 04:59 [place] 5-325 mg 00 :00 every 6 Medical tablet (six) Branch hours as needed for Pain (scale 7-10) for up to 7 days. Indication s: acute pain HYDROcodone 2021-02- No [id number] 1{tbl} Take 1 U nivers -acetaminop 0-28 11-05 tablet by it y of hen (NORCO) 00:00: 04:59 [place] 5-325 mg 00 :00 every 6 Medical tablet (six) Branch hours as needed for Pain (scale 7-10) for up to 7 days. Indication s: acute pain HYDROcodone 2021-02- No [id number] 1{tbl} Take 1 U nivers -acetaminop 0-28 11-05 tablet by it y of hen (NORCO) 00:00: 04:59 mouth [place] 5-325 mg 00 :00 every 6 Medical tablet (six) Branch hours as needed for Pain (scale 7-10) for up to 7 days. Indication s: acute pain cefTRIAXone 2021- No 1000mg 1,000 mg, Univers (ROCEPHIN) 11-05- IV ity of 1,000 mg in 15:15: 15:44 Piggyback, [place] NaCl 0.9% 00 :58 ONCE, 1 Medical (NS) 50 mL dose, On Branc h MINI-BAG Mon11/05/21 at 1015, Administer over 30 Minutes, 50 mL
R dianne for Anti-Infec tive: Empiric Therapy for Suspected Infection< br>Empiric Therapy Site: Urine
D uration of therapy: 5 days buPROPion 2021-0 Yes 150mg Take 150 Uni vers XL 150 mg 9-09 mg by ity of 24 hr 11:02: mouth in [place] tablet 50 the Medical morning. Branch memantine 5 2021-0 Yes 5mg Take 5 mg U nivers mg tablet 9-09 by mouth ity of 11:02: in the [place] [address] morning. Medical Branch buPROPion 2021-0 Yes 150mg Take 150 Uni vers XL 150 mg 9-09 mg by ity of 24 hr 11:02: mouth in [place] tablet 50 the Medical morning. Branch memantine 5 2021-0 Yes 5mg Take 5 mg U nivers mg tablet 9-09 by mouth ity of 11:02: in the [place] [address] morning. Medical Branch buPROPion 2021-0 Yes 150mg Take 150 Uni vers XL 150 mg 9-09 mg by ity of 24 hr 11:02: mouth in [place] tablet 50 the Medical morning. Branch memantine 5 2021-0 Yes 5mg Take 5 mg U nivers mg tablet 9-09 by mouth ity of 11:02: in the [place] [address] morning. Medical Branch buPROPion 2021-0 Yes 150mg Take 150 Uni vers XL 150 mg 9-09 mg by ity of 24 hr 11:02: mouth in [place] tablet 50 the Medical morning. Branch memantine 5 2021-0 Yes 5mg Take 5 mg U nivers mg tablet 9-09 by mouth ity of 11:02: in the [place] [address] morning. Medical Branch buPROPion 2021-0 Yes 150mg Take 150 Uni vers XL 150 mg 9-09 mg by ity of 24 hr 11:02: mouth in [place] tablet 50 the Medical morning. Branch memantine 5 2021-0 Yes 5mg Take 5 mg U nivers mg tablet 9-09 by mouth ity of 11:02: in the [place] 50 morning. Medical Branch buPROPion 2021-0 Yes 150mg Take 150 Uni vers XL 150 mg 9-09 mg by ity of 24 hr 11:02: mouth in [place] tablet 50 the Medical morning. Branch memantine 5 2021-0 Yes 5mg Take 5 mg U nivers mg tablet 9-09 by mouth ity of 11:02: in the [place] 50 morning. Medical Branch buPROPion 2021-0 Yes 150mg Take 150 Uni vers XL 150 mg 9-09 mg by ity of 24 hr 11:02: mouth in [place] tablet 50 the Medical morning. Branch memantine 5 2021-0 Yes 5mg Take 5 mg U nivers mg tablet 9-09 by mouth ity of 11:02: in the [place] 50 morning. Medical Branch buPROPion 2021-0 Yes 150mg Take 150 Uni vers XL 150 mg 9-09 mg by ity of 24 hr 11:02: mouth in [place] tablet 50 the Medical morning. Branch memantine 5 2021-0 Yes 5mg Take 5 mg U nivers mg tablet 9-09 by mouth ity of 11:02: in the [place] 50 morning. Medical Branch buPROPion 2021-0 Yes 150mg Take 150 Uni vers XL 150 mg 9-09 mg by ity of 24 hr 11:02: mouth in [place] tablet 50 the Medical morning. Branch memantine 5 2021-0 Yes 5mg Take 5 mg U nivers mg tablet 9-09 by mouth ity of 11:02: in the [place] 50 morning. Medical Branch buPROPion 2021-0 Yes 150mg Take 150 Uni vers XL 150 mg 9-09 mg by ity of 24 hr 11:02: mouth in [place] tablet 50 the Medical morning. Branch memantine 5 2021-0 Yes 5mg Take 5 mg U nivers mg tablet 9-09 by mouth ity of 11:02: in the [place] 50 morning. Medical Branch buPROPion 2021-0 Yes 150mg Take 150 Uni vers XL 150 mg 9-09 mg by ity of 24 hr 11:02: mouth in [place] tablet 50 the Medical morning. Branch memantine 5 2021-0 Yes 5mg Take 5 mg U nivers mg tablet 9-09 by mouth ity of 11:02: in the [place] 50 morning. Medical Branch buPROPion 2021-0 Yes 150mg Take 150 Uni vers XL 150 mg 9-09 mg by ity of 24 hr 11:02: mouth in [place] tablet 50 the Medical morning. Branch memantine 5 2021-0 Yes 5mg Take 5 mg U nivers mg tablet 9-09 by mouth ity of 11:02: in the [place] 50 morning. Medical Branch carvediloL 2021-0 Yes 12.5mg Take 12.5 Univers 12.5 mg 9-09 mg by ity of tablet 08:56: mouth in [place] 02 the Medical morning Branch and 12.5 mg in the evening. Take with meals. ARIPiprazol 2021-0 Yes 2.5mg Take 2.5 U nivers e 5 mg 9-09 mg by ity of tablet 08:56: mouth [place] 02 every Medical evening. Branch clopidogreL 2021-0 Yes 75mg Take 75 mg Univers 75 mg 9-09 by mouth ity of tablet 08:56: in the [place] 02 morning. Medical Branch escitalopra 2021-0 Yes 20mg Take 20 mg Univers m oxalate 09 by mouth ity of 20 mg 08:56: in the [place] [facility] 02 morning. Medical Branch fenofibrate 2021-0 Yes 145mg Take 145 U nivers 145 mg 9-09 mg by ity of tablet 08:56: mouth in [place] 02 the Medical morning. Branch levothyroxi 2021-0 Yes 25ug Take 25 Uni vers ne 25 mcg 9-09 mcg by ity of tablet 08:56: mouth [place] 02 every Medical morning. Branch donepeziL 2021-0 Yes 10mg Take 10 mg Un [place] 10 mg 9-09 by mouth ity of tablet 08:56: every [place] 02 morning. Medical Branch omeprazole 2021-0 Yes 20mg Take 20 mg U nivers 20 mg -09 by mouth ity of capsule 08:56: in the [place] 02 morning. Medical Branch finasteride 2021-0 Yes 5mg Take 5 mg U nivers 5 mg tablet 09 by mouth ity of 08:56: every [place] 02 morning. Medical Branch tamsulosin 2021-0 Yes Take by Univ ers 0.4 mg 24 9-09 mouth ity of hr capsule 08:56: daily. [place] [address] Medical Branch doxepin 50 2021-0 Yes 50mg Take 50 mg U nivers mg capsule 09 by mouth ity o f 08:56: every [place] 02 evening. Medical Branch Magnesium 2021-0 Yes 1{tbl} Take 1 Univ ers Oxide 500 9-09 tablet by ity o f mg Tab 08:56: mouth [place] 02 every Medical evening. Branch aspirin 2021-0 Yes 325mg Take 325 Unive rs E.C. 325 mg 9-09 mg by ity of EC tablet 08:56: mouth [place] every Medical evening. Branch clonazePAM 2021-0 Yes .5mg Take 0.5 Uni vers 0.5 mg 9-09 mg by ity of tablet 08:56: mouth at [place] 02 bedtime as Medical needed for Branch Insomnia. atorvastati 2021-0 Yes 80mg Take 80 mg Univers n calcium 9-09 by mouth ity of (ATORVASTAT 08:56: [place]. [place] 02 Medical Branch carvediloL 2021-0 Yes 12.5mg Take 12.5 Univers 12.5 mg 9-09 mg by ity of tablet 08:56: mouth in [place] 02 the Medical morning Branch and 12.5 mg in the evening. Take with meals. ARIPiprazol 2021-0 Yes 2.5mg Take 2.5 U nivers e 5 mg 9-09 mg by ity of tablet 08:56: mouth [place] every Medical evening. Branch clopidogreL 2021-0 Yes 75mg Take 75 mg Univers 75 mg 9-09 by mouth ity of tablet 08:56: in the [place] morning. Medical Branch escitalopra 2021-0 Yes 20mg Take 20 mg Univers m oxalate 909 by mouth ity of 20 mg 08:56: in the [facility] morning. Medical Branch fenofibrate 2021-0 Yes 145mg Take 145 U nivers 145 mg 9-09 mg by ity of tablet 08:56: mouth in [place] 02 the Medical morning. Branch levothyroxi 2021-0 Yes 25ug Take 25 Uni vers ne 25 mcg 9-09 mcg by ity of tablet 08:56: mouth [place] 02 every Medical morning. Branch donepeziL 2021-0 Yes 10mg Take 10 mg Un [place] 10 mg 9-09 by mouth ity of tablet 08:56: every [place] morning. Medical Branch omeprazole 2021-0 Yes 20mg Take 20 mg U nivers 20 mg 9-09 by mouth ity of capsule 08:56: in the [place] morning. Medical Branch finasteride 2021-0 Yes 5mg Take 5 mg U nivers 5 mg tablet 909 by mouth ity of 08:56: every [place] morning. Medical Branch tamsulosin 2021-0 Yes Take by Univ ers 0.4 mg 24 9-09 mouth ity of hr capsule 08:56: daily. [place] 02 Medical Branch doxepin 50 2021-0 Yes 50mg Take 50 mg U nivers mg capsule 09 by mouth ity o f 08:56: every [place] evening. Medical Branch Magnesium 2021-0 Yes 1{tbl} Take 1 Univ ers Oxide 500 9-09 tablet by ity o f mg Tab 08:56: mouth [place] every Medical evening. Branch aspirin 2021-0 Yes 325mg Take 325 Unive rs E.C. 325 mg 9-09 mg by ity of EC tablet 08:56: mouth [place] every Medical evening. Branch clonazePAM 2021-0 Yes .5mg Take 0.5 Uni vers 0.5 mg 9-09 mg by ity of tablet 08:56: mouth at [place] [address] bedtime as Medical needed for Branch Insomnia. atorvastati 2021-0 Yes 80mg Take 80 mg Univers n calcium 09 by mouth ity of (ATORVASTAT 08:56: [place]. [place] 02 Medical Branch carvediloL 2021-0 Yes 12.5mg Take 12.5 Univers 12.5 mg 9-09 mg by ity of tablet 08:56: mouth in [place] the Medical morning Branch and 12.5 mg in the evening. Take with meals. ARIPiprazol 2021-0 Yes 2.5mg Take 2.5 U nivers e 5 mg 9-09 mg by ity of tablet 08:56: mouth [place] [address] every Medical evening. Branch clopidogreL 2021-0 Yes 75mg Take 75 mg Univers 75 mg 909 by mouth ity of tablet 08:56: in the [place] morning. Medical Branch escitalopra 2021-0 Yes 20mg Take 20 mg Univers m oxalate 909 by mouth ity of 20 mg 08:56: in the [facility] morning. Medical Branch fenofibrate 2021-0 Yes 145mg Take 145 U nivers 145 mg 9-09 mg by ity of tablet 08:56: mouth in [place] the Medical morning. Branch levothyroxi 2021-0 Yes 25ug Take 25 Uni vers ne 25 mcg 9-09 mcg by ity of tablet 08:56: mouth [place] [address] every Medical morning. Branch donepeziL 2021-0 Yes 10mg Take 10 mg Un [place] 10 mg 9-09 by mouth ity of tablet 08:56: every morning. Medical Branch omeprazole 2021-0 Yes 20mg Take 20 mg U nivers 20 mg 9-09 by mouth ity of capsule 08:56: in the morning. Medical Branch finasteride 2021-0 Yes 5mg Take 5 mg U nivers 5 mg tablet 909 by mouth ity of 08:56: every morning. Medical Branch tamsulosin 2021-0 Yes Take by Univ ers 0.4 mg 24 9-09 mouth ity of hr capsule 08:56: daily. Medical Branch doxepin 50 2021-0 Yes 50mg Take 50 mg U nivers mg capsule 909 by mouth ity o f 08:56: every evening. Medical Branch Magnesium 2021-0 Yes 1{tbl} Take 1 Univ ers Oxide 500 9-09 tablet by ity o f mg Tab 08:56: mouth every Medical evening. Branch aspirin 2021-0 Yes 325mg Take 325 Unive rs E.C. 325 mg 9-09 mg by ity of EC tablet 08:56: mouth every Medical evening. Branch clonazePAM 2021-0 Yes .5mg Take 0.5 Uni vers 0.5 mg 9-09 mg by ity of tablet 08:56: mouth at [place] bedtime as Medical needed for Branch Insomnia. atorvastati 2021-0 Yes 80mg Take 80 mg Univers n calcium 9-09 by mouth ity of (ATORVASTAT 08:56: [place]. [place] 02 Medical Branch carvediloL 2021-0 Yes 12.5mg Take 12.5 Univers 12.5 mg 9-09 mg by ity of tablet 08:56: mouth in 02 the Medical morning Branch and 12.5 mg in the evening. Take with meals. ARIPiprazol 2021-0 Yes 2.5mg Take 2.5 U nivers e 5 mg 9-09 mg by ity of tablet 08:56: mouth 02 every Medical evening. Branch clopidogreL 2021-0 Yes 75mg Take 75 mg Univers 75 mg 9-09 by mouth ity of tablet 08:56: in the morning. Medical Branch escitalopra 0 Yes 20mg Take 20 mg Univers m oxalate 11-05 by mouth ity of 20 mg 08:56: in the [facility] morning. Medical Branch fenofibrate 0 Yes 145mg Take 145 U nivers 145 mg 9-09 mg by ity of tablet 08:56: mouth in [place] 02 the Medical morning. Branch levothyroxi 0 Yes 25ug Take 25 Uni vers ne 25 mcg 9-09 mcg by ity of tablet 08:56: mouth [place] every Medical morning. Branch donepeziL 0 Yes 10mg Take 10 mg Un [place] 10 mg 909 by mouth ity of tablet 08:56: every [place] morning. Medical Branch omeprazole 0 Yes 20mg Take 20 mg U nivers 20 mg 09 by mouth ity of capsule 08:56: in the morning. Medical Branch finasteride 2021-0 Yes 5mg Take 5 mg U nivers 5 mg tablet 09 by mouth ity of 08:56: every [place] morning. Medical Branch tamsulosin 0 Yes Take by Univ ers 0.4 mg 24 909 mouth ity of hr capsule 08:56: daily. Medical Branch doxepin 50 2021-0 Yes 50mg Take 50 mg U nivers mg capsule 09 by mouth ity o f 08:56: every [place] evening. Medical Branch Magnesium 0 Yes 1{tbl} Take 1 Univ ers Oxide 500 9-09 tablet by ity o f mg Tab 08:56: mouth [place] every Medical evening. Branch aspirin 2021-0 Yes 325mg Take 325 Unive rs E.C. 325 mg 9-09 mg by ity of EC tablet 08:56: mouth [place] every Medical evening. Branch clonazePAM 2021-0 Yes .5mg Take 0.5 Uni vers 0.5 mg 9-09 mg by ity of tablet 08:56: mouth at [place] bedtime as Medical needed for Branch Insomnia. atorvastati 0 Yes 80mg Take 80 mg Univers n calcium 909 by mouth ity of (ATORVASTAT 08:56: daily. [place]AL[place] 02 Medical Branch carvediloL 2021-0 Yes 12.5mg Take 12.5 Univers 12.5 mg 9-09 mg by ity of tablet 08:56: mouth in the Medical morning Branch and 12.5 mg in the evening. Take with meals. ARIPiprazol 2021-0 Yes 2.5mg Take 2.5 U nivers e 5 mg 9-09 mg by ity of tablet 08:56: mouth every Medical evening. Branch clopidogreL 2021-0 Yes 75mg Take 75 mg Univers 75 mg 9-09 by mouth ity of tablet 08:56: in the [place] morning. Medical Branch escitalopra 2021-0 Yes 20mg Take 20 mg Univers m oxalate 909 by mouth ity of 20 mg 08:56: in the [facility] morning. Medical Branch fenofibrate 2021-0 Yes 145mg Take 145 U nivers 145 mg 9-09 mg by ity of tablet 08:56: mouth in the Medical morning. Branch levothyroxi 2021-0 Yes 25ug Take 25 Uni vers ne 25 mcg 9-09 mcg by ity of tablet 08:56: mouth every Medical morning. Branch donepeziL 2021-0 Yes 10mg Take 10 mg Un [place] 10 mg 9-09 by mouth ity of tablet 08:56: every morning. Medical Branch omeprazole 2021-0 Yes 20mg Take 20 mg U nivers 20 mg 9-09 by mouth ity of capsule 08:56: in the morning. Medical Branch finasteride 2021-0 Yes 5mg Take 5 mg U nivers 5 mg tablet 909 by mouth ity of 08:56: every morning. Medical Branch tamsulosin 2021-0 Yes Take by Univ ers 0.4 mg 24 9-09 mouth ity of hr capsule 08:56: daily. Medical Branch doxepin 50 2021-0 Yes 50mg Take 50 mg U nivers mg capsule 909 by mouth ity o f 08:56: every evening. Medical Branch Magnesium 2021-0 Yes 1{tbl} Take 1 Univ ers Oxide 500 9-09 tablet by ity o f mg Tab 08:56: mouth 02 every Medical evening. Branch aspirin 2021-0 Yes 325mg Take 325 Unive rs E.C. 325 mg 9-09 mg by ity of EC tablet 08:56: mouth [place] 02 every Medical evening. Branch clonazePAM 2021-0 Yes .5mg Take 0.5 Uni vers 0.5 mg 9-09 mg by ity of tablet 08:56: mouth at [place] bedtime as Medical needed for Branch Insomnia. atorvastati 2021-0 Yes 80mg Take 80 mg Univers n calcium 9-09 by mouth ity of (ATORVASTAT 08:56: [place]. [place] 02 Medical Branch carvediloL 2021-0 Yes 12.5mg Take 12.5 Univers 12.5 mg 9-09 mg by ity of tablet 08:56: mouth in [place] 02 the Medical morning Branch and 12.5 mg in the evening. Take with meals. ARIPiprazol 2021-0 Yes 2.5mg Take 2.5 U nivers e 5 mg 9-09 mg by ity of tablet 08:56: mouth [place] every Medical evening. Branch clopidogreL 2021-0 Yes 75mg Take 75 mg Univers 75 mg 909 by mouth ity of tablet 08:56: in the [place] morning. Medical Branch escitalopra 2021-0 Yes 20mg Take 20 mg Univers m oxalate 909 by mouth ity of 20 mg 08:56: in the [facility] morning. Medical Branch fenofibrate 2021-0 Yes 145mg Take 145 U nivers 145 mg 9-09 mg by ity of tablet 08:56: mouth in [place] the Medical morning. Branch levothyroxi 2021-0 Yes 25ug Take 25 Uni vers ne 25 mcg 9-09 mcg by ity of tablet 08:56: mouth [place] every Medical morning. Branch donepeziL 2021-0 Yes 10mg Take 10 mg Un [place] 10 mg 9-09 by mouth ity of tablet 08:56: every [place] morning. Medical Branch omeprazole 2021-0 Yes 20mg Take 20 mg U nivers 20 mg 9-09 by mouth ity of capsule 08:56: in the morning. Medical Branch finasteride 2021-0 Yes 5mg Take 5 mg U nivers 5 mg tablet 9-09 by mouth ity of 08:56: every [place] morning. Medical Branch tamsulosin 2021-0 Yes Take by Univ ers 0.4 mg 24 9-09 mouth ity of hr capsule 08:56: daily. [place] [address] Medical Branch doxepin 50 0 Yes 50mg Take 50 mg U nivers mg capsule 9-09 by mouth ity o f 08:56: every [place] 02 evening. Medical Branch Magnesium 2021-0 Yes 1{tbl} Take 1 Univ ers Oxide 500 9-09 tablet by ity o f mg Tab 08:56: mouth [place] 02 every Medical evening. Branch aspirin 2021-0 Yes 325mg Take 325 Unive rs E.C. 325 mg 9-09 mg by ity of EC tablet 08:56: mouth [place] 02 every Medical evening. Branch clonazePAM 0 Yes .5mg Take 0.5 Uni vers 0.5 mg 9-09 mg by ity of tablet 08:56: mouth at [place] 02 bedtime as Medical needed for Branch Insomnia. atorvastati 0 Yes 80mg Take 80 mg Univers n calcium 909 by mouth ity of (ATORVASTAT 08:56: daily. [place] 02 Medical Branch carvediloL 0 Yes 12.5mg Take 12.5 [facility] 12.5 mg 9-09 mg by ity of tablet 08:56: mouth in [place] 02 the Medical morning Branch and 12.5 mg in the evening. Take with meals. ARIPiprazol 0 Yes 2.5mg Take 2.5 U nivers e 5 mg 9-09 mg by ity of tablet 08:56: mouth [place] 02 every Medical evening. Branch clopidogreL 0 Yes 75mg Take 75 mg [facility] 75 mg 909 by mouth ity of tablet 08:56: in the [place] morning. Medical Branch escitalopra 0 Yes 20mg Take 20 mg [facility] m oxalate 909 by mouth ity of 20 mg 08:56: in the [facility] 02 morning. Medical Branch fenofibrate 2021-0 Yes 145mg Take 145 U nivers 145 mg 9-09 mg by ity of tablet 08:56: mouth in [place] 02 the Medical morning. Branch levothyroxi 0 Yes 25ug Take 25 Uni vers ne 25 mcg 9-09 mcg by ity of tablet 08:56: mouth [place] 02 every Medical morning. Branch donepeziL 0 Yes 10mg Take 10 mg [facility] [place] 10 mg 9-09 by mouth ity of tablet 08:56: every [place] morning. Medical Branch omeprazole 2021-0 Yes 20mg Take 20 mg U nivers 20 mg 9-09 by mouth ity of capsule 08:56: in the [place] morning. Medical Branch finasteride 2021-0 Yes 5mg Take 5 mg U nivers 5 mg tablet 11-05 by mouth ity of 08:56: every [place] morning. Medical Branch tamsulosin 2021-0 Yes Take by [facility] ers 0.4 mg 24 09 mouth ity of hr capsule 08:56: daily. [place] 02 Medical Branch doxepin 50 2021-0 Yes 50mg Take 50 mg U nivers mg capsule 909 by mouth ity o f 08:56: every [place] evening. Medical Branch Magnesium 2021-0 Yes 1{tbl} Take 1 [facility] ers Oxide 500 - tablet by ity o f mg Tab 08:56: mouth 02 every Medical evening. Branch aspirin 2021-0 Yes 325mg Take 325 [facility] 325 mg 9-09 mg by ity of EC tablet 08:56: mouth [place] 02 every Medical evening. Branch clonazePAM 2021-0 Yes .5mg Take 0.5 Uni vers 0.5 mg 9-09 mg by ity of tablet 08:56: mouth at [place] 02 bedtime as Medical needed for Branch Insomnia. atorvastati 0 Yes 80mg Take 80 mg [facility] n calcium 11-05 by mouth ity of (ATORVASTAT 08:56: [place] 02 Medical Branch carvediloL 2021-0 Yes 12.5mg Take 12.5 [facility] 12.5 mg 9-09 mg by ity of tablet 08:56: mouth in [place] 02 the Medical morning Branch and 12.5 mg in the evening. Take with meals. ARIPiprazol 2021-0 Yes 2.5mg Take 2.5 U nivers e 5 mg 9-09 mg by ity of tablet 08:56: mouth [place] 02 every Medical evening. Branch clopidogreL 2021-0 Yes 75mg Take 75 mg [facility] 75 mg 9-09 by mouth ity of tablet 08:56: in the [place] morning. Medical Branch escitalopra 2021-0 Yes 20mg Take 20 mg [facility] m oxalate 09 by mouth ity of 20 mg 08:56: in the [place] tablet 02 morning. Medical Branch fenofibrate 0 Yes 145mg Take 145 U nivers 145 mg 9-09 mg by ity of tablet 08:56: mouth in the Medical morning. Branch levothyroxi 0 Yes 25ug Take 25 Uni vers ne 25 mcg 9-09 mcg by ity of tablet 08:56: mouth [place] 02 every Medical morning. Branch donepeziL 0 Yes 10mg Take 10 mg [facility] [place] 10 mg 9-09 by mouth ity of tablet 08:56: every [place] morning. Medical Branch omeprazole 0 Yes 20mg Take 20 mg U nivers 20 mg 9-09 by mouth ity of capsule 08:56: in the [place] morning. Medical Branch finasteride 0 Yes 5mg Take 5 mg U nivers 5 mg tablet 909 by mouth ity of 08:56: every [place] morning. Medical Branch tamsulosin Yes Take by [facility] ers 0.4 mg 24 9-09 mouth ity of hr capsule 08:56: daily. 02 Medical Branch doxepin 50 2021-0 Yes 50mg Take 50 mg U nivers mg capsule 909 by mouth ity o f 08:56: every [place] evening. Medical Branch Magnesium 0 Yes 1{tbl} Take 1 [facility] ers Oxide 500 9-09 tablet by ity o f mg Tab 08:56: mouth every Medical evening. Branch aspirin 0 Yes 325mg Take 325 [facility] 325 mg 9-09 mg by ity of EC tablet 08:56: mouth every Medical evening. Branch clonazePAM 0 Yes .5mg Take 0.5 Uni vers 0.5 mg 9-09 mg by ity of tablet 08:56: mouth at [place] 02 bedtime as Medical needed for Branch Insomnia. atorvastati 0 Yes 80mg Take 80 mg [facility] n calcium 9-09 by mouth ity of (ATORVASTAT 08:56: [place] 02 Medical Branch carvediloL 2021-0 Yes 12.5mg Take 12.5 [facility] 12.5 mg 9-09 mg by ity of tablet 08:56: mouth in the Medical morning Branch and 12.5 mg in the evening. Take with meals. ARIPiprazol 2021-0 Yes 2.5mg Take 2.5 U nivers e 5 mg 9-09 mg by ity of tablet 08:56: mouth [place] 02 every Medical evening. Branch clopidogreL 2021-0 Yes 75mg Take 75 mg [facility] 75 mg 909 by mouth ity of tablet 08:56: in the [place] morning. Medical Branch escitalopra 2021-0 Yes 20mg Take 20 mg [facility] m oxalate 09 by mouth ity of 20 mg 08:56: in the [place] [facility] 02 morning. Medical Branch fenofibrate 2021-0 Yes 145mg Take 145 U nivers 145 mg 9-09 mg by ity of tablet 08:56: mouth in [place] 02 the Medical morning. Branch levothyroxi 2021-0 Yes 25ug Take 25 Uni vers ne 25 mcg 9-09 mcg by ity of tablet 08:56: mouth 02 every Medical morning. Branch donepeziL 2021-0 Yes 10mg Take 10 mg [place] 10 mg 09 by mouth ity of tablet 08:56: every [place] morning. Medical Branch omeprazole 2021-0 Yes 20mg Take 20 mg U nivers 20 mg 09 by mouth ity of capsule 08:56: in the [place] morning. Medical Branch finasteride 2021-0 Yes 5mg Take 5 mg U nivers 5 mg tablet 09 by mouth ity of 08:56: every [place] morning. Medical Branch tamsulosin 2021-0 Yes Take by [facility] ers 0.4 mg 24 9-09 mouth ity of hr capsule 08:56: daily. Medical Branch doxepin 50 2021-0 Yes 50mg Take 50 mg U nivers mg capsule 09 by mouth ity o f 08:56: every [place] 02 evening. Medical Branch Magnesium 2021-0 Yes 1{tbl} Take 1 Univ ers Oxide 500 9-09 tablet by ity o f mg Tab 08:56: mouth [place] 02 every Medical evening. Branch aspirin 2021-0 Yes 325mg Take 325 [facility] 325 mg 9-09 mg by ity of EC tablet 08:56: mouth [place] 02 every Medical evening. Branch clonazePAM 2021-0 Yes .5mg Take 0.5 Uni vers 0.5 mg 9-09 mg by ity of tablet 08:56: mouth at [place] [address] bedtime as Medical needed for Branch Insomnia. atorvastati 2021-0 Yes 80mg Take 80 mg [facility] n calcium 9-09 by mouth ity of (ATORVASTAT 08:56: [place]. [place] 02 Medical Branch carvediloL 2021-0 Yes 12.5mg Take 12.5 [facility] 12.5 mg 9-09 mg by ity of tablet 08:56: mouth in [place] 02 the Medical morning Branch and 12.5 mg in the evening. Take with meals. ARIPiprazol 2021-0 Yes 2.5mg Take 2.5 U nivers e 5 mg 9-09 mg by ity of tablet 08:56: mouth [place] [address] every Medical evening. Branch clopidogreL 2021-0 Yes 75mg Take 75 mg [facility] 75 mg 9-09 by mouth ity of tablet 08:56: in the [place] morning. Medical Branch escitalopra 2021-0 Yes 20mg Take 20 mg [facility] m oxalate 909 by mouth ity of 20 mg 08:56: in the [facility] morning. Medical Branch fenofibrate 2021-0 Yes 145mg Take 145 U nivers 145 mg 9-09 mg by ity of tablet 08:56: mouth in [place] the Medical morning. Branch levothyroxi 2021-0 Yes 25ug Take 25 Uni vers ne 25 mcg 9-09 mcg by ity of tablet 08:56: mouth [place] every Medical morning. Branch donepeziL 2021-0 Yes 10mg Take 10 mg [place] 10 mg 9-09 by mouth ity of tablet 08:56: every morning. Medical Branch omeprazole 2021-0 Yes 20mg Take 20 mg U nivers 20 mg 9-09 by mouth ity of capsule 08:56: in the [place] morning. Medical Branch finasteride 2021-0 Yes 5mg Take 5 mg U nivers 5 mg tablet 909 by mouth ity of 08:56: every [place] morning. Medical Branch tamsulosin 2021-0 Yes Take by Univ ers 0.4 mg 24 9-09 mouth ity of hr capsule 08:56: daily. [place] [address] Medical Branch doxepin 50 2021-0 Yes 50mg Take 50 mg U nivers mg capsule 09 by mouth ity o f 08:56: every [place] 02 evening. Medical Branch Magnesium 2021-0 Yes 1{tbl} Take 1 Univ ers Oxide 500 9-09 tablet by ity o f mg Tab 08:56: mouth [place] every Medical evening. Branch aspirin 2021-0 Yes 325mg Take 325 [facility] 325 mg 9-09 mg by ity of EC tablet 08:56: mouth [place] 02 every Medical evening. Branch clonazePAM 2021-0 Yes .5mg Take 0.5 Uni vers 0.5 mg 9-09 mg by ity of tablet 08:56: mouth at [place] [address] bedtime as Medical needed for Branch Insomnia. atorvastati 0 Yes 80mg Take 80 mg [facility] n calcium 9-09 by mouth ity of (ATORVASTAT 08:56: daily. [place] 02 Medical Branch carvediloL 2021-0 Yes 12.5mg Take 12.5 [facility] 12.5 mg 9-09 mg by ity of tablet 08:56: mouth in [place] 02 the Medical morning Branch and 12.5 mg in the evening. Take with meals. ARIPiprazol 0 Yes 2.5mg Take 2.5 U nivers e 5 mg 9-09 mg by ity of tablet 08:56: mouth [place] [address] every Medical evening. Branch clopidogreL 2021-0 Yes 75mg Take 75 mg [facility] 75 mg 9-09 by mouth ity of tablet 08:56: in the [place] morning. Medical Branch escitalopra 2021-0 Yes 20mg Take 20 mg [facility] m oxalate 909 by mouth ity of 20 mg 08:56: in the [facility] morning. Medical Branch fenofibrate 2021-0 Yes 145mg Take 145 U nivers 145 mg 9-09 mg by ity of tablet 08:56: mouth in [place] 02 the Medical morning. Branch levothyroxi 2021-0 Yes 25ug Take 25 Uni vers ne 25 mcg 9-09 mcg by ity of tablet 08:56: mouth [place] [address] every Medical morning. Branch donepeziL 2021-0 Yes 10mg Take 10 mg [place] 10 mg 9-09 by mouth ity of tablet 08:56: every [place] morning. Medical Branch omeprazole 2021-0 Yes 20mg Take 20 mg U nivers 20 mg 9-09 by mouth ity of capsule 08:56: in the [place] morning. Medical Branch finasteride 2021-0 Yes 5mg Take 5 mg U nivers 5 mg tablet 909 by mouth ity of 08:56: every [place] morning. Medical Branch tamsulosin 2021-0 Yes Take by [facility] ers 0.4 mg 24 9-09 mouth ity of hr capsule 08:56: daily. [place] Medical Branch doxepin 50 2021-0 Yes 50mg Take 50 mg U nivers mg capsule 09 by mouth ity o f 08:56: every [place] evening. Medical Branch Magnesium 2021-0 Yes 1{tbl} Take 1 Univ ers Oxide 500 9-09 tablet by ity o f mg Tab 08:56: mouth [place] every Medical evening. Branch aspirin 2021-0 Yes 325mg Take 325 [facility] rs [facility]C. 325 mg 9-09 mg by ity of EC tablet 08:56: mouth [place] every Medical evening. Branch clonazePAM 2021-0 Yes .5mg Take 0.5 Uni vers 0.5 mg 9-09 mg by ity of tablet 08:56: mouth at [place] bedtime as Medical needed for Branch Insomnia. atorvastati 2021-0 Yes 80mg Take 80 mg [facility] n calcium 11-05 by mouth ity of (ATORVASTAT 08:56: daily. [place] 02 Medical Branch carvediloL 2021-0 Yes 12.5mg Take 12.5 [facility] 12.5 mg 9-09 mg by ity of tablet 08:56: mouth in [place] 02 the Medical morning Branch and 12.5 mg in the evening. Take with meals. ARIPiprazol 2021-0 Yes 2.5mg Take 2.5 U nivers e 5 mg 9-09 mg by ity of tablet 08:56: mouth [place] [address] every Medical evening. Branch clopidogreL 2021-0 Yes 75mg Take 75 mg [facility] 75 mg 9-09 by mouth ity of tablet 08:56: in the [place] morning. Medical Branch escitalopra 2021-0 Yes 20mg Take 20 mg [facility] m oxalate 909 by mouth ity of 20 mg 08:56: in the [facility] morning. Medical Branch fenofibrate 2021-0 Yes 145mg Take 145 U nivers 145 mg 9-09 mg by ity of tablet 08:56: mouth in [place] the Medical morning. Branch levothyroxi 2021-0 Yes 25ug Take 25 Uni vers ne 25 mcg 9-09 mcg by ity of tablet 08:56: mouth every Medical morning. Branch donepeziL 2021-0 Yes 10mg Take 10 mg [place] 10 mg 9-09 by mouth ity of tablet 08:56: every [place] morning. Medical Branch omeprazole 2021-0 Yes 20mg Take 20 mg U nivers 20 mg 9-09 by mouth ity of capsule 08:56: in the morning. Medical Branch finasteride 2021-0 Yes 5mg Take 5 mg U nivers 5 mg tablet 909 by mouth ity of 08:56: every morning. Medical Branch tamsulosin 2021-0 Yes Take by Univ ers 0.4 mg 24 9-09 mouth ity of hr capsule 08:56: daily. Medical Branch doxepin 50 2021-0 Yes 50mg Take 50 mg U nivers mg capsule 909 by mouth ity o f 08:56: every [place] evening. Medical Branch Magnesium 2021-0 Yes 1{tbl} Take 1 Univ ers Oxide 500 9-09 tablet by ity o f mg Tab 08:56: mouth every Medical evening. Branch aspirin 2021-0 Yes 325mg Take 325 [facility] rs E[facility]C. 325 mg 9-09 mg by ity of EC tablet 08:56: mouth [place] every Medical evening. Branch clonazePAM 2021-0 Yes .5mg Take 0.5 Uni vers 0.5 mg 9-09 mg by ity of tablet 08:56: mouth at [place] [address] bedtime as Medical needed for Branch Insomnia. atorvastati 0 Yes 80mg Take 80 mg [facility] n calcium 9-09 by mouth ity of (ATORVASTAT 08:56: daily. [place] 02 Medical Branch carvediloL 2021-0 Yes 12.5mg Take 12.5 Univers 12.5 mg 9-09 mg by ity of tablet 08:56: mouth in [place] 02 the Medical morning Branch and 12.5 mg in the evening. Take with meals. ARIPiprazol 2021-0 Yes 2.5mg Take 2.5 U nivers e 5 mg 9-09 mg by ity of tablet 08:56: mouth [place] every Medical evening. Branch clopidogreL 2021-0 Yes 75mg Take 75 mg [facility] 75 mg 909 by mouth ity of tablet 08:56: in the morning. Medical Branch escitalopra 2021-0 Yes 20mg Take 20 mg [facility] m oxalate 09 by mouth ity of 20 mg 08:56: in the [place] morning. Medical Branch fenofibrate 2021-0 Yes 145mg Take 145 U nivers 145 mg 9-09 mg by ity of tablet 08:56: mouth in 02 the Medical morning. Branch levothyroxi 2021-0 Yes 25ug Take 25 Uni vers ne 25 mcg 9-09 mcg by ity of tablet 08:56: mouth every Medical morning. Branch donepeziL 2021-0 Yes 10mg Take 10 mg [place] 10 mg 09 by mouth ity of tablet 08:56: every morning. Medical Branch omeprazole 2021-0 Yes 20mg Take 20 mg U nivers 20 mg 09 by mouth ity of capsule 08:56: in the morning. Medical Branch finasteride 2021-0 Yes 5mg Take 5 mg U nivers 5 mg tablet 09 by mouth ity of 08:56: every morning. Medical Branch tamsulosin 2021-0 Yes Take by Univ ers 0.4 mg 24 909 mouth ity of hr capsule 08:56: daily. Medical Branch doxepin 50 2021-0 Yes 50mg Take 50 mg U nivers mg capsule 09 by mouth ity o f 08:56: every evening. Medical Branch Magnesium 2021-0 Yes 1{tbl} Take 1 Univ ers Oxide 500 9-09 tablet by ity o f mg Tab 08:56: mouth 02 every Medical evening. Branch aspirin 2021-0 Yes 325mg Take 325 [facility] rs E.C. 325 mg 9-09 mg by ity of EC tablet 08:56: mouth 02 every Medical evening. Branch clonazePAM 2021-0 Yes .5mg Take 0.5 Uni vers 0.5 mg 9-09 mg by ity of tablet 08:56: mouth at [place] 02 bedtime as Medical needed for Branch Insomnia. atorvastati 2021-0 Yes 80mg Take 80 mg [facility] n calcium 9-09 by mouth ity of (ATORVASTAT 08:56: daily. [place] 02 Medical Branch cefdinir 2021- No [id number] 300mg Take 1 U nivers 300 mg 11-05 capsule by ity of capsule 00:00: 04:59 mouth [place] 00 :00 every 12 Medical (twelve) Branch hours for 7 days. HYDROcodone 2021- No [id number] 1{tbl} Take 1 U nivers -acetaminop 11-05 tablet by it y of hen 5-325 00:00: 04:59 mouth [place] mg tablet 00 :00 every 4 Medical (four) Branch hours as needed for Pain (scale 4-6) for up to 7 days. Indication s: acute pain cefdinir 2021- No [id number] 300mg Take 1 U nivers 300 mg 11-05 capsule by ity of capsule 00:00: 04:59 mouth [place] 00 :00 every 12 Medical (twelve) Branch hours for 7 days. HYDROcodone 2021- No 4647 1{tbl} Take 1 U nivers -acetaminop 11-05 tablet by it y of hen 5-325 00:00: 04:59 mouth [place] mg tablet 00 :00 every 4 Medical (four) Branch hours as needed for Pain (scale 4-6) for up to 7 days. Indication s: acute pain hyoscyamine 2021- No [id number] .125mg Take 1 Univers 0.125 mg 11-05 tablet by ity o f tablet 00:00: 04:59 mouth 4 [place] 00 :00 (four) Medical times Branch daily as needed for Pain (scale 7-10) for up to 5 days. hyoscyamine 2021- No [id number] .125mg Take 1 [facility] 0.125 mg 11-05 tablet by ity o f tablet 00:00: 04:59 mouth 4 [place] 00 :00 (four) Medical times Branch daily as needed for Pain (scale 7-10) for up to 5 days. carvediloL Yes 12.5mg Take 12.5 Univers 12.5 mg 9-07 mg by ity of tablet 18:07: mouth in [place] 05 the Medical morning Branch and 12.5 mg in the evening. Take with meals. ARIPiprazol 2021-0 Yes 5mg Take 5 mg U nivers e 5 mg 907 by mouth ity of tablet 18:07: every [place] [address] morning. Medical Branch ARIPiprazol 2021-0 Yes 2.5mg Take 2.5 U nivers e (ABILIFY) 9-07 mg by ity of 5 mg tablet 18:07: mouth [place] [address] every Medical evening. Branch clopidogreL 2021-0 Yes 75mg Take 75 mg [facility] 75 mg 11-03 by mouth ity of tablet 18:07: in the [place] [address] morning. Medical Branch escitalopra 2021-0 Yes 20mg Take 20 mg [facility] m oxalate 11-03 by mouth ity of 20 mg 18:07: in the [place] [address] morning. Medical Branch fenofibrate 2021-0 Yes 145mg Take 145 U nivers 145 mg 9-07 mg by ity of tablet 18:07: mouth in [place] [address] the Medical morning. Branch levothyroxi 2021-0 Yes 25ug Take 25 Uni vers ne 25 mcg 9 mcg by ity of tablet 18:07: mouth [place] [address] every Medical morning. Branch donepeziL 2021-0 Yes 10mg Take 10 mg [place] 10 mg 07 by mouth ity of tablet 18:07: every [place] [address] morning. Medical Branch omeprazole 2021-0 Yes 20mg Take 20 mg U nivers 20 mg 07 by mouth ity of capsule 18:07: in the [place] [address] morning. Medical Branch finasteride 2021-0 Yes 5mg Take 5 mg U nivers 5 mg tablet 07 by mouth ity of 18:07: every [place] [address] morning. Medical Branch tamsulosin 2021-0 Yes Take by Univ ers 0.4 mg 24 11-03 mouth ity of hr capsule 18:07: daily. [place] [address] Medical Branch doxepin 50 2021-0 Yes 50mg Take 50 mg U nivers mg capsule 07 by mouth ity o f 18:07: every [place] [address] evening. Medical Branch Magnesium 2021-0 Yes 1{tbl} Take 1 Univ ers Oxide 500 11-03 tablet by ity o f mg Tab 18:07: mouth [place] [address] every Medical evening. Branch aspirin 2021-0 Yes 325mg Take 325 [facility] rs E[facility] 325 mg 9-07 mg by ity of EC tablet 18:07: mouth [place] [address] every Medical evening. Branch clonazePAM 2021-0 Yes .5mg Take 0.5 Uni vers 0.5 mg 9-07 mg by ity of tablet 18:07: mouth at [place] [address] bedtime as Medical needed for Branch Insomnia. atorvastati 2021-0 Yes 80mg Take 80 mg [facility] n calcium 907 by mouth ity of (ATORVASTAT 18:07: daily. [place] 05 Medical Branch ARIPiprazol 2021-0 Yes 5mg Take 5 mg U nivers e 5 mg 9-07 by mouth ity of tablet 18:07: every [place] [address] morning. Medical Branch carvediloL 2021-0 Yes 12.5mg Take 12.5 Univers 12.5 mg 9-07 mg by ity of tablet 18:07: mouth in [place] [address] the Medical morning Branch and 12.5 mg in the evening. Take with meals. ARIPiprazol 2021-0 Yes 5mg Take 5 mg U nivers e 5 mg 9-07 by mouth ity of tablet 18:07: every [place] [address] morning. Medical Branch ARIPiprazol 2021-0 Yes 5mg Take 5 mg U nivers e 5 mg 9-07 by mouth ity of tablet 18:07: every [place] [address] morning. Medical Branch ARIPiprazol 2021-0 Yes 2.5mg Take 2.5 U nivers e (ABILIFY) 9-07 mg by ity of 5 mg tablet 18:07: mouth [place] [address] every Medical evening. Branch clopidogreL 2021-0 Yes 75mg Take 75 mg Univers 75 mg 07 by mouth ity of tablet 18:07: in the [place] [address] morning. Medical Branch escitalopra 2021-0 Yes 20mg Take 20 mg [facility] m oxalate 07 by mouth ity of 20 mg 18:07: in the [facility] 05 morning. Medical Branch ARIPiprazol 2021-0 Yes 5mg Take 5 mg U nivers e 5 mg 9-07 by mouth ity of tablet 18:07: every [place] [address] morning. Medical Branch fenofibrate 2021-0 Yes 145mg Take 145 U nivers 145 mg 9-07 mg by ity of tablet 18:07: mouth in [place] [address] the Medical morning. Branch levothyroxi 0 Yes 25ug Take 25 Uni vers ne 25 mcg 9- mcg by ity of tablet 18:07: mouth [place] [address] every Medical morning. Branch ARIPiprazol 0 Yes 5mg Take 5 mg U nivers e 5 mg 907 by mouth ity of tablet 18:07: every [place] [address] morning. Medical Branch donepeziL 2021-0 Yes 10mg Take 10 mg [place] 10 mg 907 by mouth ity of tablet 18:07: every [place] [address] morning. Medical Branch omeprazole 2021-0 Yes 20mg Take 20 mg U nivers 20 mg 907 by mouth ity of capsule 18:07: in the [place] [address] morning. Medical Branch finasteride 2021-0 Yes 5mg Take 5 mg U nivers 5 mg tablet 907 by mouth ity of 18:07: every [place] [address] morning. Medical Branch ARIPiprazol 2021-0 Yes 5mg Take 5 mg U nivers e 5 mg 907 by mouth ity of tablet 18:07: every [place] [address] morning. Medical Branch tamsulosin 0 Yes Take by Univ ers 0.4 mg 24 907 mouth ity of hr capsule 18:07: daily. [place] [address] Medical Branch doxepin 50 2021-0 Yes 50mg Take 50 mg U nivers mg capsule 07 by mouth ity o f 18:07: every [place] [address] evening. Medical Branch Magnesium 2021-0 Yes 1{tbl} Take 1 Univ ers Oxide 500 9-07 tablet by ity o f mg Tab 18:07: mouth [place] [address] every Medical evening. Branch ARIPiprazol 0 Yes 5mg Take 5 mg U nivers e 5 mg 9-07 by mouth ity of tablet 18:07: every [place] [address] morning. Medical Branch aspirin 2021-0 Yes 325mg Take 325 Un[facility] rs [facility] 325 mg 9-07 mg by ity of EC tablet 18:07: mouth [place] [address] every Medical evening. Branch clonazePAM 2021-0 Yes .5mg Take 0.5 Uni vers 0.5 mg 9-07 mg by ity of tablet 18:07: mouth at [place] [address] bedtime as Medical needed for Branch Insomnia. ARIPiprazol 2022-0 Yes 5mg Take 5 mg U nivers e 5 mg 9-07 by mouth ity of tablet 18:07: every [place] [address] morning. Medical Branch atorvastati 2021-0 Yes 80mg Take 80 mg [facility] n calcium 9-07 by mouth ity of (ATORVASTAT 18:07: daily. [place] 05 Medical Branch ARIPiprazol 2022-0 Yes 5mg Take 5 mg U nivers e 5 mg 9-07 by mouth ity of tablet 18:07: every [place] 05 morning. Medical Branch ARIPiprazol 2-0 Yes 5mg Take 5 mg U nivers e 5 mg 9-07 by mouth ity of tablet 18:07: every [place] [address] morning. Medical Branch ARIPiprazol 2-0 Yes 5mg Take 5 mg U nivers e 5 mg 9-07 by mouth ity of tablet 18:07: every [place] 05 morning. Medical Branch ARIPiprazol 2-0 Yes 5mg Take 5 mg U nivers e 5 mg 9-07 by mouth ity of tablet 18:07: every [place] 05 morning. Medical Branch ARIPiprazol 2-0 Yes 5mg Take 5 mg U nivers e 5 mg 9-07 by mouth ity of tablet 18:07: every [place] [address] morning. Medical Branch ARIPiprazol 2-0 Yes 5mg Take 5 mg U nivers e 5 mg 9-07 by mouth ity of tablet 18:07: every [place] 05 morning. Medical Branch cyclobenzap 2-0 Yes [id number] 5mg Take 1 [facility] rine 5 mg 9- [id number] tablet by ity of tablet 00:00: mouth 3 (three) Medical times Branch daily as needed for Muscle Spasms. cyclobenzap 2022-0 Yes [id number] 5mg Take 1 [facility] rine 5 mg 9- [id number] tablet by ity of tablet 00:00: mouth 3 00 (three) Medical times Branch daily as needed for Muscle Spasms. cyclobenzap 2022-0 Yes [id number] 5mg Take 1 [facility] rine 5 mg 9-07 [id number] tablet by ity of tablet 00:00: mouth 3 00 (three) Medical times Branch daily as needed for Muscle Spasms. cyclobenzap 2022-0 Yes [id number] 5mg Take 1 [facility] rine 5 mg 9-07 [id number] tablet by ity of tablet 00:00: mouth 3 [place] 00 (three) Medical times Branch daily as needed for Muscle Spasms. cyclobenzap 2021-0 Yes [id number] 5mg Take 1 [facility] rine 5 mg 9-07 [id number] tablet by ity of tablet 00:00: mouth 3 [place] 00 (three) Medical times Branch daily as needed for Muscle Spasms. cyclobenzap 2021-0 Yes [id number] 5mg Take 1 [facility] rine 5 mg 9-07 [id number] tablet by ity of tablet 00:00: mouth 3 [place] 00 (three) Medical times Branch daily as needed for Muscle Spasms. cyclobenzap 0 Yes [id number] 5mg Take 1 [facility] rine 5 mg 9-07 [id number] tablet by ity of tablet 00:00: mouth 3 [place] 00 (three) Medical times Branch daily as needed for Muscle Spasms. cyclobenzap Yes [id number] 5mg Take 1 [facility] rine 5 mg 9-07 [id number] tablet by ity of tablet 00:00: mouth 3 [place] 00 (three) Medical times Branch daily as needed for Muscle Spasms. cyclobenzap 0 Yes [id number] 5mg Take 1 [facility] rine 5 mg 9-07 [id number] tablet by ity of tablet 00:00: mouth 3 [place] 00 (three) Medical times Branch daily as needed for Muscle Spasms. cyclobenzap 2021- No [id number] 5mg Take 1 [facility] rine 5 mg 9-07 10-28 [id number] tablet by it y of tablet 00:00: 00:00 mouth 3 [place] 00 :00 (three) Medical times Branch daily as needed for Muscle Spasms. HYDROcodone 2021- No [id number] 1{tbl} Take 1 U nivers -acetaminop 9-07 09-15 tablet by it y of hen 5-325 00:00: 04:59 mouth [place] mg tablet 00 :00 every 6 Medical (six) Branch hours as needed for Pain (scale 4-6) for up to 7 days. Indication s: acute pain HYDROcodone 2021-2021- No 4647 1{tbl} Take 1 U nivers -acetaminop 9-07 09-15 tablet by it y of hen 5-325 00:00: 04:59 mouth [place] mg tablet 00 :00 every 6 Medical (six) Branch hours as needed for Pain (scale 4-6) for up to 7 days. Indication s: acute pain HYDROcodone 0 2021- No 4647 1{tbl} Take 1 U nivers -acetaminop 11-03 09-09 tablet by it y of hen 5-325 00:00: 00:00 mouth [place] mg tablet 00 :00 every 6 Medical (six) Branch hours as needed for Pain (scale 4-6) for up to 7 days. Indication s: acute pain HYDROcodone 2021-0 Yes 1{tbl} 1 tablet, Univers -acetaminop 11-02 Oral, ity of hen (NORCO 21:45: Q4HPRN, [place] 5) 5-325 mg 00 Starting Medi jessica tablet 1 on [facility] tablet 11/02/21 at 1645, Until Discontinu ed, Routine, Pain (scale 4-6) HYDROcodone 2021-0 Yes 1{tbl} 1 tablet, Univers -acetaminop 11-02 Oral, ity of hen (NORCO) 21:44: Q4HPRN, [place] as 10-325 mg 01 Starting Medica l tablet 1 on [facility] tablet 11/02/21 at 1644, Until Discontinu ed, Routine, Pain (scale 7-10) aspirin 2021-0 Yes 81mg 81 mg, Univers chewable 11-02 Oral, ity of tablet 81 14:00: DAILY, [place] mg 00 First dose Medical on [facility] 11/02/21 at 0900, Until Discontinu ed, Routine docusate 2021-0 Yes 100mg 100 mg, Unive rs (COLACE) 11-02 Oral, ity of capsule 100 14:00: DAILY[place] 00 First dose Medical on [facility] 11/02/21 at 0900, Until Discontinu ed, Routine tamsulosin 2021-0 Yes .4mg 0.4 mg, Univ ers (FLOMAX) 11-02 Oral, ity of capsule 0.4 14:00: DAILY, [place] mg 00 First dose Medical on [facility] 11/02/21 at 0900, Until Discontinu ed, Routine omeprazole 2021-0 Yes 20mg 20 mg, Unive rs (PRILOSEC) 11-02 Oral, ity of capsule 20 14:00: DAILY, [place] mg 00 First dose Medical on [facility] 11/02/21 at 0900, Until Discontinu ed, Routine magnesium 2021-0 Yes 400mg 400 mg, Univ ers oxide 11-02 Oral, ity of (MAG-OX 14:00: DAILY, [place] 400) tablet 00 First dose Me dical 400 mg on [facility] 11/02/21 at 0900, Until Discontinu ed finasteride 2021-0 Yes 5mg 5 mg, [facility] [place] [facility] (PROSCAR) 11-02 Oral, QAM, ity of tablet 5 mg 14:00: First dose [place] 00 on [facility] 11/02/21 at Branch 0900, Until Discontinu ed, Routine fenofibrate Yes 134mg 134 mg, Un salbador micronized 11-02 Oral, ity of (LOFIBRA) 14:00: DAILY, [place] capsule 134 00 First dose Me dical mg on [facility] 11/02/21 at 0900, Until Discontinu ed escitalopra 0 Yes 20mg 20 mg, Univ ers m oxalate 11-02 Oral, ity of (LEXAPRO) 14:00: DAILY, [place] tablet 20 00 First dose Medi jessica mg on [facility] 11/02/21 at 0900, Until Discontinu ed, Routine donepeziL Yes 10mg 10 mg, Univer s (ARICEPT) 11-02 Oral, QAM, ity of tablet 10 14:00: [place] 00 on [facility] 11/02/21 at Branch 0900, Until Discontinu ed, Routine clopidogreL 2021-0 Yes 75mg 75 mg, Univ ers (PLAVIX) 75 11-02 Oral, ity of mg tablet 14:00: DAILY, [place] 75 mg 00 First dose Medical on [facility] 11/02/21 at 0900, Until Discontinu ed, Routine ARIPiprazol 0 Yes 5mg 5 mg, [facility] [place] [facility] e (ABILIFY) 11-02 Oral, QAM, it y of tablet 5 mg 14:00: First dose [place] 00 on [facility] 11/02/21 at Branch 0900, Until Discontinu ed, Routine levothyroxi 2021-0 Yes 25ug 25 mcg, Uni vers ne 11-02 Oral, ity of (SYNTHROID) 11:00: QAM-0600, [place] tablet 25 00 First dose Medi jessica mcg on [facility] 11/02/21 at 0600, Until Discontinu ed, Routine atorvastati Yes 40mg 40 mg, Univ ers n (LIPITOR) 11-02 Oral, QHS, it y of tablet 40 02:00: [place] 00 on [facility] 11/01/21 at Branch 2100, Until Discontinu ed, Routine cyclobenzap 2021- No 5mg 5 mg, Univ ers rine 11-02 09-09 Oral, TID, ity of (FLEXERIL) 01:00: 00:59 9 doses, [place] tablet 5 mg 00 :00 First dose Me dical on [place] 11/01/21 at 2000, Last dose on [facility] 11/04/21 at 1400, Routine ketorolac 2021- No 15mg 15 mg, Unive rs (TORADOL) 11-01 09-07 Slow IV ity of injection 22:15: 10:14 Push, Q12H [place] 15 mg 00 :00 ABX, 3 Medical doses, Branch First dose on Mon11/01/21 at 1715, Last dose on Mon11/02/21 at 1715, Routine carvediloL Yes 12.5mg 12.5 mg, U nivers (COREG) 11-01 Oral, BID ity of tablet 12.5 22:00: [place]ALS, [place] mg 00 First dose Medical on [facility] 11/01/21 at 1700, Until Discontinu ed, Routine ARIPiprazol Yes 2.5mg 2.5 mg, Un salbador e (ABILIFY) 11-01 Oral, QPM, it y of tablet 2.5 22:00: First dose [place] mg 00 on [facility] 11/01/21 at Branch 1700, Until Discontinu ed, Routine ondansetron Yes 4mg 4 mg, Slow Univers (ZOFRAN 11-01 IV Push, ity of (PF)) 21:01: Q6HPRN, [place] injection 4 00 Starting Medi jessica mg on [facility] 11/01/21 at 1601, Until Discontinu ed, Routine, Nausea and Vomiting (N/V) HYDROcodone 2021- No 1{tbl} 1 tablet, Univers -acetaminop 11-01 Oral, ity of hen (NORCO 21:00: 21:45 Q6HPRN, [place] 5) 5-325 mg 47 :04 Starting Medi jessica tablet 1 on [facility] tablet 11/01/21 at 1600, Until 11/02/21 at 1645, Routine, Pain (scale 4-6) acetaminoph Yes 650mg 650 mg, Un salbador en 11-01 Oral, ity of (TYLENOL) 21:00: Q6HPRN, [place] tablet 650 38 Starting Medic al mg on [facility] Branch 11/01/21 at 1600, Until Discontinu ed, Routine, Pain (scale 1-3) clonazePAM Yes .5mg 0.5 mg, Univ ers (KLONOPIN) 11-01 Oral, ity of tablet 0.5 20:58: QHSPRN, [place] mg 14 Starting Medical on [facility] Branch 11/01/21 at 1558, Until Discontinu ed, Routine, Insomnia No known No No known Univ rs medications 11-01 medication it y of 16:04: s [place] 18 [facility] morpHINE (4 No 4mg 4 mg, Slow Univers mg/mL) 11-01 IV Push, ity of injection 4 15:45: 15:19 ONCE, 1 [place] mg 00 :00 dose, On Medical [facility] 11/01/21 Branch at 1045, [place] NaCl 0.9% 2021- No 500mL at 999 Univ ers (NS) bolus 11-01 mL/hr, 500 it y of infusion 15:15: 15:20 mL, IV [place] 500 mL 00 :00 Infusion, Medical ONCE, 1 Branch dose, On Mon11/01/21 at 1015, [place] ondansetron No 4mg 4 mg, Slow Univers (ZOFRAN 11-01 IV Push, ity of (PF)) 15:00: 15:19 ONCE, 1 [place] injection 4 00 :00 dose, On Medi jessica mg 11/01/21 Branch at 1000, [place] Proscar 5 Proscar 5 2021-0 2022- No 1{table QD Proscar 5 MG MG 07-2230 t} MG 00:00: 00:00 00 :00 MULTIVIT-AK 2018-0 Yes Take by Met hodi NERALS/FERR 9-[address] OUS FUM 15:14: Hospita (MULTI 12 l VITAMIN ORAL) aspirin 325 2018-0 Yes 325mg QD Take 325 M ethodi MG tablet 9-[address] 15:14: mouth Hospita 12 daily. l levothyroxi Yes 25ug QD Take 25 Met hodi ne 9-[address] (SYNTHROID, 15:14: mouth Hospi ta LEVOXYL) 25 12 every l mcg tablet morning. MULTIVIT-AK Yes Take by Met hodi NERALS/FERR 9-[address] OUS FUM 15:14: Hospita (MULTI 12 l VITAMIN ORAL) aspirin 325 2018- Yes 325mg QD Take 325 M ethodi MG tablet 9-[address] 15:14: mouth Hospita 12 daily. l levothyroxi Yes 25ug QD Take 25 Met hodi ne 9-[address] (SYNTHROID, 15:14: mouth Hospi ta LEVOXYL) 25 12 every l mcg tablet morning. MULTIVIT-AK Yes Take by Met hodi NERALS/FERR 9-[address] OUS FUM 15:14: Hospita (MULTI 12 l VITAMIN ORAL) aspirin 325 2018- Yes 325mg QD Take 325 M ethodi MG tablet 9-[address] 15:14: mouth Hospita 12 daily. l levothyroxi 2019-0 Yes 25ug QD Take 25 Met hodi ne 9-[address] (SYNTHROID, 15:14: mouth Hospi ta LEVOXYL) 25 12 every l mcg tablet morning. MULTIVIT-AK Yes Take by Met hodi NERALS/FERR 9-[address] OUS FUM 15:14: Hospita (MULTI 12 l VITAMIN ORAL) aspirin 325 2018-0 Yes 325mg QD Take 325 M ethodi MG tablet 9-[address] 15:14: mouth Hospita 12 daily. l levothyroxi 2018- Yes 25ug QD Take 25 Met hodi ne 9-[address] (SYNTHROID, 15:14: mouth Hospi ta LEVOXYL) 25 12 every l mcg tablet morning. lansoprazol Yes TAKE 1 Meth gris e 8-[address] (PREVACID) 00:00: MOUTH ONCE H ospita 30 MG 00 DAILY 30 l capsule MINUTES BEFORE BREAKFAST lansoprazol Yes TAKE 1 Meth gris e 8-[address] (PREVACID) 00:00: MOUTH ONCE H ospita 30 MG 00 DAILY 30 l capsule MINUTES BEFORE BREAKFAST lansoprazol Yes TAKE 1 Meth gris e 8-[address] (PREVACID) 00:00: MOUTH ONCE H ospita 30 MG 00 DAILY 30 l capsule MINUTES BEFORE BREAKFAST lansoprazol Yes TAKE 1 Meth gris e 8-[address] (PREVACID) 00:00: MOUTH ONCE H ospita 30 MG 00 DAILY 30 l capsule MINUTES BEFORE BREAKFAST SHINGRIX, Yes PHARMACIST Me saab , 50 8-[address] mcg/0.5 mL 00:00: ED Hospita suspension IMMUNIZATI l for ON reconstitut ADMINISTER ion IM ED AT TIME injection OF DISPENSING SHINGRIX, Yes PHARMACIST Me saab , 50 8-[address] mcg/0.5 mL 00:00: ED Hospita suspension IMMUNIZATI l for ON reconstitut ADMINISTER ion IM ED AT TIME injection OF DISPENSING SHINGRIX, Yes PHARMACIST Me saab , 50 8-[address] mcg/0.5 mL 00:00: ED Hospita suspension IMMUNIZATI l for ON reconstitut ADMINISTER ion IM ED AT TIME injection OF DISPENSING SHINGRIX, Yes PHARMACIST [facility] , [facility] mcg/0.5 mL 00:00: ED Hospita suspension IMMUNIZATI l for ON reconstitut ADMINISTER ion IM ED AT TIME injection OF DISPENSING atorvastati Yes 80mg QD Take 80 mg Methodi n (LIPITOR) 6-[address] 80 MG 00:00: every Hospita tablet 00 evening. l atorvastati Yes 80mg QD Take 80 mg Methodi n (LIPITOR) 6-[address] 80 MG 00:00: every Hospita tablet 00 evening. l atorvastati Yes 80mg QD Take 80 mg Methodi n (LIPITOR) 6-[address] 80 MG 00:00: every Hospita tablet 00 evening. l atorvastati Yes 80mg QD Take 80 mg Methodi n (LIPITOR) 6-[address] 80 MG 00:00: every Hospita tablet 00 evening. l clopidogrel 2015-02 Yes Method i (PLAVIX) 75 2-03 st mg tablet 00:00: Hospita 00 l clopidogrel 2015-02 Yes Method i (PLAVIX) 75 2-03 st mg tablet 00:00: Hospita 00 l clopidogrel 2015-02 Yes Method i (PLAVIX) 75 2-03 st mg tablet 00:00: Hospita 00 l clopidogrel 2015-02 Yes Method i (PLAVIX) 75 2-03 st mg tablet 00:00: Hospita 00 l fluorouraci 2015-02 Yes Method i l (EFUDEX) 1-29 st 5 % cream 00:00: Hospita 00 l fluorouraci 2015-02 Yes Method i l (EFUDEX) 1-29 st 5 % cream 00:00: Hospita 00 l fluorouraci 2015-02 Yes Method i l (EFUDEX) 1-29 st 5 % cream 00:00: Hospita 00 l fluorouraci 2015-02 Yes Method i l (EFUDEX) 1-29 st 5 % cream 00:00: Hospita 00 l fenofibrate 2015-02 Yes Method i (TRICOR) 1-13 st 145 MG 00:00: Hospita tablet 00 l fenofibrate 2015-02 Yes Method i (TRICOR) 1-13 st 145 MG 00:00: Hospita tablet 00 l fenofibrate 2015-02 Yes Method i (TRICOR) 1-13 st 145 MG 00:00: Hospita tablet 00 l fenofibrate 2015-02 Yes Method i (TRICOR) 1-13 st 145 MG 00:00: Hospita tablet 00 l escitalopra 2015-02 Yes Method i m (LEXAPRO) 1-11 st 10 MG 00:00: Hospita tablet 00 l escitalopra 2015-02 Yes Method i m (LEXAPRO) 1-11 st 10 MG 00:00: Hospita tablet 00 l escitalopra 2015-02 Yes Method i m (LEXAPRO) 1-11 st 10 MG 00:00: Hospita tablet 00 l escitalopra 2015-02 Yes Method i m (LEXAPRO) - st 10 MG 00:00: Hospita tablet 00 l carvedilol 2015-0 Yes 12.5mg Q.5D Take 12.5 Methodi (COREG) 9-[address] 12.5 MG 00:00: mouth 2 Hospita tablet 00 (two) l times a day with meals. carvedilol 2015-0 Yes 12.5mg Q.5D Take 12.5 Methodi (COREG) 9-[address] 12.5 MG 00:00: mouth 2 Hospita tablet 00 (two) l times a day with meals. carvedilol 2015-0 Yes 12.5mg Q.5D Take 12.5 Methodi (COREG) 9-[address] 12.5 MG 00:00: mouth 2 Hospita tablet 00 (two) l times a day with meals. carvedilol 2015- Yes 12.5mg Q.5D Take 12.5 Methodi (COREG) 9-[address] 12.5 MG 00:00: mouth 2 Hospita tablet 00 (two) l times a day with meals. Levoxyl 25 Levoxyl 25 No QD Levoxyl 25 MCG MCG MCG Ecotrin 325 Ecotrin 325 No 1{table QD Ecotrin MG MG t} 325 MG Carvedilol Carvedilol No Carvedilol 12.5 mg AM, 12.5 mg AM, 12.5 mg 6.25 mg PM 6.25 mg PM AM, 6.25 mg PM Escitalopra Escitalopra No 1{table QD Escitalopr m Oxalate m Oxalate t} am Oxalate 20 MG 20 MG 20 MG Fenofibrate Fenofibrate No 1{table QD Fenofibrat 145 MG 145 MG t} e 145 MG Abilify 10 Abilify 10 No 1{table QD Abilify 10 MG MG t} MG Atorvastati Atorvastati No 1{table QD Atorvastat n Calcium n Calcium t} in Calcium 80 MG 80 MG 80 MG Omeprazole Omeprazole No QD Omeprazole 20 MG 20 MG 20 MG Clopidogrel Clopidogrel No 1{table QD Clopidogre Bisulfate Bisulfate t} l 75 MG 75 MG Bisulfate 75 MG Donepezil Donepezil No 1{table QD Donepezil HCl 10 MG HCl 10 MG t_at_be HCl 10 MG dtime} Magnesium Magnesium No 1{table QD Magnesium 500 MG 500 MG t_with_ 500 MG a_meal} Tamsulosin Tamsulosin 2022- No QD Tamsulosin HCl 0.4 MG HCl 0.4 MG 11-26 HCl 0.4 MG 00:00 :00 Vital Signs Vital Name Observation Time Observation Value Comments Source Heart rate 2022-01-13 21:25:00 79 /min Universi ty of [facility] Respiratory rate 2022-01-13 21:25:00 14 /min Univ ersity of [facility] Oxygen saturation in 2022-01-13 21:25:00 100 /min University of Arterial blood by [employer] Pulse oximetry Branch Body temperature 2022-01-13 20:25:00 36.72 Shannan Univ ersity [facility] Systolic blood 2022-01-13 18:29:00 115 mm[Hg] Univer sity of pressure [facility] Diastolic blood 2022-01-13 18:29:00 78 mm[Hg] Unive rsity of [facility] Body height 2022-01-13 15:30:00 175.3 cm [facility] Body weight 2022-01-13 15:30:00 83.008 kg [facility] BMI 2022-01-13 15:30:00 27.02 kg/m2 [facility] Systolic blood 2021-12-29 14:04:00 134 mm[Hg] Univer sity of pressure [facility] Diastolic blood 2021-12-29 14:04:00 89 mm[Hg] Unive rsity of [facility] Heart rate 2021-12-29 14:04:00 89 /min Universi ty [facility] Body temperature 2021-12-29 14:04:00 36.72 Shannan Univ ersity of [facility] Respiratory rate 2021-12-29 14:04:00 16 /min Univ ersity of [facility] Oxygen saturation in 2021-12-29 14:04:00 99 /min University of Arterial blood by [employer] jessica Pulse oximetry Branch Systolic blood 2021-12-20 18:48:00 115 mm[Hg] Univer sity of pressure [facility] Diastolic blood 2021-12-20 18:48:00 75 mm[Hg] Unive rsity of pressure [facility] Heart rate 2021-12-20 18:48:00 80 /min Universi ty [facility] Body temperature 2021-12-20 18:48:00 36.33 Shannan [facility] 2021-12-20 18:48:00 18 /min [facility] Body height 2021-12-20 18:48:00 175.3 cm Universi ty [facility] Body weight 2021-12-20 18:48:00 83.825 kg Universi [facility] BMI 2021-12-20 18:48:00 27.29 kg/m2 [facility] Oxygen saturation in 2021-12-20 18:48:00 100 /min [facility] Arterial blood by [facility] Pulse oximetry Branch height 2021-12-01 10:45:00 72 [in_i] [facility] weight 2021-12-01 10:45:00 189.2 [lb_av] Common [facility] temperature 2021-12-01 10:45:00 97.2 [degF] [facility] bmi 2021-12-01 10:45:00 25.66 kg/m2 [facility] oximetry 2021-12-01 10:45:00 98 % [facility] respiratory rate 2021-12-01 10:45:00 18 /min Comm on [facility] blood pressure 2021-12-01 10:45:00 126 mm[Hg] Common [facility] - systolic [facility] blood pressure 2021-12-01 10:45:00 71 mm[Hg] Common [facility] - diastolic [facility] Systolic blood 2021-11-05 16:00:00 155 mm[Hg] Univer sity of [facility] Diastolic blood 2021-11-05 16:00:00 85 mm[Hg] Unive rsity of pressure [facility] Heart rate 2021-11-05 16:00:00 74 /min Universi ty [facility] Respiratory rate 2021-11-05 16:00:00 18 /min [facility] Oxygen saturation in 2021-11-05 16:00:00 96 /min University of Arterial blood by [facility] Pulse oximetry Branch Body temperature 2021-11-05 13:36:00 37.33 Shannan [facility] Body weight 2021-11-05 13:36:00 97.523 kg Universi ty of [facility] BMI 2021-11-05 13:36:00 29.99 kg/m2 Universi ty [facility] Systolic blood 2021-11-03 20:55:00 127 mm[Hg] [facility] [place] [facility] pressure [facility] Diastolic blood 2021-11-03 20:55:00 77 mm[Hg] [facility] [place] [facility] Heart rate 2021-11-03 20:55:00 80 /min Universi ty [facility] Body temperature 2021-11-03 20:55:00 36.67 Shannan [facility] Respiratory rate 2021-11-03 20:55:00 17 /min [facility] Oxygen saturation in 2021-11-03 20:55:00 96 /min University of Arterial blood by [facility] Pulse oximetry [place] Body height 2021-11-01 22:44:00 180.3 cm Universi ty [facility] Body weight 2021-11-01 22:44:00 97.523 kg [facility] BMI 2021-11-01 22:44:00 29.99 kg/m2 [facility] Procedures Procedure Date / Time Performing Clinician Source Performed ABORH CONFIRMATION (LAB 2022-01-13 17:17:00 Prabhakar, [facility] ONLY) Medical Branch HB ABO GROUPING 2022-01-13 16:05:00 Prabhakar [facility] BASIC METABOLIC PANEL 2022-01-13 16:03:00 PrabhakarEdwin rossalan [facility] (NA, K, CL, CO2, GLUCOSE, Medica l Branch BUN, CREATININE, CA) CBC WITH DIFF 2022-01-13 16:03:00 Prabhakar, [facility] PROTHROMBIN TIME / INR 2022-01-13 16:03:00 Gustavo Radford [facility] DEXA AXIAL (HIP AND 2022-01-10 16:22:13 Madina Hilton [facility] SPINE) Medical Branch BASIC METABOLIC PANEL 2021-12-29 14:07:00 Madina Hilton [facility] (NA, K, CL, CO2, GLUCOSE, Medica l Branch BUN, CREATININE, CA) CBC WITHOUT DIFF 2021-12-29 14:07:00 Madina Hilton [facility] PROTHROMBIN TIME / INR 2021-12-29 14:07:00 Madina Hilton [facility] ASSIGNMENT OF BENEFITS 2021-12-20 18:42:17 Doctor Unassigned, [facility] [place] PATIENT QUESTIONNAIRE 2021-11-10 05:01:00 Doctor Unassigned, [facility] [place] BASIC METABOLIC PANEL 2021-11-05 13:56:00 Gina Willoughby [facility] (NA, K, CL, CO2, GLUCOSE, Medica l Branch BUN, CREATININE, CA) CBC WITH DIFF 2021-11-05 13:56:00 Gina Willoughby [facility] y [facility] PROTHROMBIN TIME / INR 2021-11-05 13:56:00 Gina Willoughby [facility] ACTIVATED PARTIAL 2021-11-05 13:56:00 Gina Willoughby [facility] THRMPLAS [facility] CONSENT/REFUSAL FOR 2021-11-05 13:42:38 Doctor Unassester, [facility] DIAGNOSIS AND TREATMENT [facility] [place] URINALYSIS 2021-11-05 13:38:00 Gina Willoughby [facility] y [facility] Branch MR LUMBAR SPINE WO 2021-11-02 13:53:19 Stan Tate [facility] CONTRAST [facility] BASIC METABOLIC PANEL 2021-11-02 10:04:00 Camilla Boateng [facility] (NA, K, CL, CO2, GLUCOSE, Medica l Branch BUN, CREATININE, CA) CBC WITH DIFF 2021-11-02 10:04:00 Camilla Boateng [place] [facility] URINALYSIS 2021-11-02 01:21:00 Tasneem [facility] POCT GLUCOSE (AUTOMATED) 2021-11-01 21:21:00 Camilla Boateng [facility] LIPASE 2021-11-01 15:25:00 Fernando Woodward [facility] MAGNESIUM 2021-11-01 15:25:00 Boateng, [facility] TROPONIN I 2021-11-01 15:25:00 Fernando Woodward [facility] FREE T4 2021-11-01 15:25:00 Boateng, [facility] THYROID STIMULATING 2021-11-01 15:25:00 Fernando Woodward [facility] HORMONE [facility] COMP. METABOLIC PANEL 2021-11-01 15:25:00 Fernando Woodward [facility] ([id number]) Medical [place] PROTHROMBIN TIME / INR 2021-11-01 15:25:00 Fernando Woodward [facility] ACTIVATED PARTIAL 2021-11-01 15:25:00 Fernando Woowdard [facility] THRMPLAS [place] CT CERVICAL SPINE WO 2021-11-01 15:16:24 Fernando Woodward [facility] CT HEAD WO CONTRAST 2021-11-01 15:16:24 Fernando Woodward [facility] CT LUMBAR SPINE WO 2021-11-01 15:16:24 Fernando Woodward [facility] CONTRAST [facility] CT THORACIC SPINE WO 2021-11-01 15:16:24 Fernando Woodward [facility] COVID-19 (ID NOW RAPID 2021-11-01 14:32:00 Fernando Woodward [facility] TESTING) Medical Branch LAB ONLY COVID 2021-11-01 14:32:00 Fernando Woodward [facility] INTERPRETATION [facility] CBC WITH DIFF 2021-11-01 14:32:00 Fernando Woodward [facility] NOTICE OF PRIVACY 2021-11-01 14:19:51 Doctor Unassigned, [facility] PRACTICES [facility] CONSENT/REFUSAL FOR 2021-11-01 14:19:26 Doctor Unassigned, [facility] DIAGNOSIS AND TREATMENT [facility] HB ECG ROUTINE & RHYTHM 2021-11-01 14:17:52 Fernando Woodward [facility] HOSPITAL ADMISSION 2021-11-01 05:01:00 Doctor Unassigned, [facility] PATIENT QUESTIONNAIRE 2021-08-31 05:01:00 Doctor Unassigned, [facility] [place] Plan of Care Planned Activity Planned Date Details Comments Source Future Scheduled 2022-08-03 [facility] Test 05:35:18 malignant neoplasm of colon (procedure) [code = 566158327] Future Scheduled 2022-08-03 [facility] Test 05:35:18 malignant neoplasm of colon (procedure) [code = 864681181] Future Scheduled 2022-08-03 [facility] Test 05:35:18 malignant neoplasm of colon (procedure) [code = 090775257] Future Scheduled 2022-08-03 COVID-19 VACCINE (#1) [facility] [place] [facility] Test 05:35:18 [code = COVID-19 VACCINE (#1)] Future Scheduled 2022-08-03 65+ P[facility]UMOCOCCAL [facility] Test 05:35:18 VACCINE (1 - PCV) [code = 65+ PNEUMOCOCCAL VACCINE (1 - PCV)] Future Scheduled 2022-08-03 Hepatitis C screening [facility] Test 05:35:18 (procedure) [code = 699927761] Future Scheduled 2022-08-03 [facility] Test 05:35:18 malignant neoplasm of colon (procedure) [code = 429031866] Future Scheduled 2022-08-03 [facility] Test 05:35:18 malignant neoplasm of colon (procedure) [code = 129352075] Future Scheduled 2022-08-03 SHINGLES VACCINES (1 [facility] 05:35:18 of 2) [code = SHINGLES VACCINES (1 of 2)] Future Scheduled 2022-08-03 INFLUENZA VACCINE [facility] Test 05:35:18 [code = INFLUENZA VACCINE] Future Scheduled 2022-06-01 COVID-19 VACCINE (#1) [facility] Test 07:25:05 [code = COVID-19 VACCINE (#1)] Future Scheduled 2022-06-01 65+ [facility]OCOCCAL [facility] Test 07:25:05 VACCINE (1 - PCV) [code = 65+ PNEUMOCOCCAL VACCINE (1 - PCV)] Future Scheduled 2022-06-01 [facility] Test 07:25:05 (procedure) [code = [id number]] Future Scheduled 2022-06-01 COLONOSCOPY SCREENING [facility] Test 07:25:05 [code = COLONOSCOPY SCREENING] Future Scheduled 2022-06-01 SHINGLES VACCINES (1 [facility] Test 07:25:05 of 2) [code = SHINGLES VACCINES (1 of 2)] Future Scheduled 2022-06-01 INFLUENZA VACCINE [facility] Test 07:25:05 [code = INFLUENZA VACCINE] Future Scheduled 2022-02-09 COVID-19 VACCINE (#1) [facility] 06:47:11 [code = COVID-19 VACCINE (#1)] Future Scheduled 2022-02-09 65+ PNEUMOCOCCAL [facility] Test 06:47:11 VACCINE (1 - PCV) [code = 65+ PNEUMOCOCCAL VACCINE (1 - PCV)] Future Scheduled 2022-02-09 Hepatitis C screening [facility] [facility] Test 06:47:11 (procedure) [code = [id number]] Future Scheduled 2022-02-09 COLONOSCOPY SCREENING [facility] 06:47:11 [code = COLONOSCOPY SCREENING] Future Scheduled 2022-02-09 SHINGLES VACCINES (1 [facility] Test 06:47:11 of 2) [code = SHINGLES VACCINES (1 of 2)] Future Scheduled 2022-02-09 INFLUENZA VACCINE [facility] Test 06:47:11 [code = INFLUENZA VACCINE] Future Scheduled 2022-02-09 COVID-19 VACCINE (#1) [facility] 06:47:11 [code = COVID-19 VACCINE (#1)] Future Scheduled 2022-02-09 65+ [facility]OCO[address] [facility] Test 06:47:11 VACCINE (1 - PCV) [code = 65+ PNEUMOCOCCAL VACCINE (1 - PCV)] Future Scheduled 2022-02-09 Hepatitis C screening [facility] Test 06:47:11 (procedure) [code = [id number]] Future Scheduled 2022-02-09 COLONOSCOPY SCREENING [facility] Test 06:47:11 [code = COLONOSCOPY SCREENING] Future Scheduled 2022-02-09 SHINGLES VACCINES (1 [facility] Test 06:47:11 of 2) [code = SHINGLES VACCINES (1 of 2)] Future Scheduled 2022-02-09 INFLUENZA VACCINE [facility] Test 06:47:11 [code = INFLUENZA VACCINE] Encounters Start End Encounter Admission Attending Care Care Encounter Source Date/Time Date/Time Type Type Clinicians Facility Department ID 2021-12-01 Out[facility] [id number] Common 10:33:03 [id number] [facility] 2022-06-15 2022-06-[place] [id number] [place] 00:00:00 00:00:00 [id number] [facility] 2022-06-15 2022-06-15 [place] [place] [id number] [place] 00:00:00 00:00:00 [id number] [facility] 2022-05-25 2022-06-10 Inpatient EM Gail, HCABM [facility] [id number] [facility] 03:34:00 13:28:00 Taiwo 10 [facility] 2022-06-08 2022-06-08 [place] [id number] [place] 00:00:00 00:00:00 [id number] [facility] 2022-05-16 2022-05-18 Emergency EM Ryan, HCAPM ANITA [id number] [facility] 20:35:00 15:15:00 Lakhwinder 28 [facility] 2022-01-13 2022-01-13 Outpatient R [facility] U TMB [id number] [facility] 08:48:05 23:59:00 [facility]ON [facility] 2022-01-13 2022-01-13 [facility] Marlon [place] [facility] 1.2 .840.114 [id number] [facility] 08:48:05 23:59:00 Encounter [facility] [id number] ity of [place] 4.2.7.2.686 [place] Blu Bhatti [phone] [address] ([facility]) 2022-01-10 2022-01-10 Outpatient R MADINA [facility] [id number] Univers 10:01:41 23:59:00 ity of [facility] 2022-01-10 2022-01-10 [facility] Madina Hilton [facility] [id number] Univers 10:01:41 23:59:00 Encounter [place] 350.1.13.10 [place] [id number] [facility] [address] 2021-12-29 2021-12-29 Hospital [facility] 1.2.840.114 [id number] Univers 08:44:14 23:59:00 Encounter Drew Y HEALTH [id number] ity of [facility] [place] [phone] [address] 2021-12-29 2021-12-29 Outpatient R ADY RUSSELL MARLON [facility] [id number] Univers 00:00:00 23:59:00 ADY RUSSELLMARLON [facility] 2021-12-27 2021-12-27 Outpatient R ADY RUSSELL MARLON [facility] U [facility] [id number] Univers 00:00:00 00:00:00 GARSIA RUSSELLMARLON [facility] 2021-12-24 2021-12-24 Outpatient R MADINA [facility] [id number] Univers 08:03:05 23:59:00 ity of [facility] 2021-12-24 2021-12-24 [facility] Madina Hilton [facility] 1.2.840.114 [id number] Univers 08:03:05 23:59:00 Encounter [facility] Y HEALTH 350.1. 13.10 ity of [facility] 4.2.[place].2.[place] [phone] [address] 2021-12-20 2021-12-20 Office [facility] 1.2.840.114 [id number] Univers 14:00:00 14:30:00 Visit KIMBERLEY Russell 350.1.13.10 i ty of [place] [phone] [address] OFFICE BUILDING 2021-12-20 2021-12-20 Outpatient R MARLON [facility] U [facility] [id number] Univers 14:00:00 14:00:00 ADY RUSSELLMARLON CORADO ity of [facility] 2021-12-20 2021-12-20 Orders Doctor KWAME 1.2.840.114 [id number] Univers 00:00:00 00:00:00 Only Unassigned, CHRISTINE 350.1.13.10 ity of [place] [facility] 4.2.7.2.686 [place] [phone] [address] 2021-12-01 2021-12-01 [facility] [id number] mmon 00:00:00 00:00:00 VISIT EST Spir it PT LEVEL 3 - [facility] 2021-11-10 2021-11-10 Orders Doctor KWAME 1.2.840.114 [id number] Univers 00:00:00 00:00:00 Only Unassigned, CHRISTINE 350.1.13.10 [facility] 4.2.7.2.686 [place] [id number] [address] 2021-11-05 2021-11-05 Emergency [facility] [id number] Univers 08:34:00 11:10:00 GINA ity of [facility] 2021-11-05 2021-11-05 Emergency [facility] 1.2.840.114 [id number] Univers 08:34:00 11:10:00 Gina CASH 350.1.13.10 ity of [place] [phone] [address] 2021-11-04 2021-11-04 Transition ARTEMIO Patel 1.2.840.114 [id number] Univers 00:00:00 00:00:00 of Care Lenora SALAS 350.1.13.10 it y of [place]7.2.[place] [id number] [facility] [address] 2021-11-04 2021-11-04 Telephone Boateng [facility] [id number] [id number] Univers 00:00:00 00:00:00 [facility] 350.1.13.10 it y of [place] [phone] [place] [address] [address] ([facility]) 2021-11-01 2021-11-03 Outpatient U BOATENG [facility] [id number] Univers 09:12:00 18:06:00 PETER ity of [facility] 2021-11-01 2021-11-03 Emergency Fernando Woodward [facility] 1.2.84 0.114 [id number] Univers 09:12:00 18:06:00 Boateng, [facility] 350.1.13.10 [place] of [place] [phone] [address] ([facility]) 2021-08-31 2021-08-31 Orders Doctor KWAME 1.2.840.114 [id number] Univers 00:00:00 00:00:00 Only Unassigned, CHRISTINE 350.1.13.10 ity of [place] [facility] 4.2.7.2.686 [place] [phone] [facility] [address] 2019-12-03 2019-12-03 Outpatient [facility] [id number] [address] [place] [address] 00:00:00 00:00:00 BERTHA [address] Results Test Description Test Time Test Comments Results Result Comments Source COVID 19 INHOUSE AG 2022-06-10 11:27:00 Test Item Value Reference Range Interpretation Comme nts COVID 19 INHOUSE AG (test code = [id number]) NEGATIVE NEGATIVE STAT COVID ORDER PER RN JS, [id number] 06/10/22 1107BASIC METABOLIC PANEL 2022-06-09 10:52:00 Test Item Value Reference Range Interpretation Comments SODIUM (test code = 141 mmol/L 136-145 N NA) POTASSIUM (test 3.3 mmol/L 3.5-5.1 L code = K) CHLORIDE (test code 112.0 mmol/L 98-107 H = CL) CARBON DIOXIDE 19.0 mmol/L 21-32 L (test code = CO2) ANION GAP (test 13.3 10-20 N code = GAP) GLUCOSE (test code 106 mg/dL 74-106 N = GLU) BLOOD UREA NITROGEN 12 mg/dL 7-18 N (test code = BUN) GLOMERULAR > 60 mL/min See_Comment The Glomerular FILTRATION RATE Filtration R ate is a (test code = GFR) calculated parameterbased on serum Creatinin e, patient age and sex. GFR valuesless than 60 mL/min/1.73 squ are meters are josh cative ofChronic Kidne y Disease. Values less than 15 mL/min/1.73squa re meters indicate Kidney failure. The calculation for GFR is based on the CK D-EPI (2020) calculat ion. This formulais race indifferent and is the recommended for sebastian for GFRby the N ational Kidney Foundati on for Adults.The GFR will not calculate i f the sex is unknown or if thepatient's ag e is <18 years. [Aut omated message] The sy stem which generated this result transmit hanna reference range : >=60. The reference r ruben was not used to interpret this result as normal/abnor mal. CREATININE (test 0.70 mg/dL 0.7-1.3 N code = CREAT) BUN/CREATININE 16.7 10-20 N RATIO (test code = BUN/CREA) CALCIUM (test code 7.2 mg/dL 8.5-10.1 L = CA) CBC W/AUTO [id number] 10:29:00 Test Item Value Reference Range Interpretation Comments WHITE BLOOD CELL (test code = 6.5 K/mm3 4.5-12.5 N WBC) RED BLOOD CELL (test code = 4.14 mill/mm3 4.0-5.8 N RBC) HEMOGLOBIN (test code = HGB) 13.0 gram/dL 13.0-17.5 N HEMATOCRIT (test code = HCT) 37.4 % 42.0-52.0 L MEAN CELL VOLUME (test code = 90.3 fL 80-98 N MCV) MEAN CELL HGB (test code = MCH) 31.4 picogram 27.0-33.0 N MEAN CELL HGB CONCETRATION 34.8 gram/dL 33.0-36.0 N (test code = MCHC) RED CELL DISTRIBUTION WIDTH 12.4 % 11.6-16.2 N (test code = RDW) RED CELL DISTRIBUTION WIDTH SD 40.6 fL 37.0-51.0 N (test code = RDW-SD) PLATELET COUNT (test code = 230 K/mm3 150-450 N PLT) MEAN PLATELET VOLUME (test code 9.5 fL 6.7-11.0 N = MPV) NEUTROPHIL % (test code = NT%) 75.3 % 39.0-69.0 H IMMATURE GRANULOCYTE % (test 0.5 % 0.0-5.0 N code = IG%) LYMPHOCYTE % (test code = LY%) 12.1 % 25.0-55.0 L MONOCYTE % (test code = MO%) 6.2 % 0.0-10.0 N EOSINOPHIL % (test code = EO%) 5.3 % 0.0-5.0 H BASOPHIL % (test code = BA%) 0.6 % 0.0-1.0 N NUCLEATED RBC % (test code = 0.0 % 0-0 N NRBC%) NEUTROPHIL # (test code = NT#) 4.87 K/mm3 1.8-7.7 N IMMATURE GRANULOCYTE # (test 0.03 x10 3/uL 0-0.03 N code = IG#) LYMPHOCYTE # (test code = LY#) 0.78 K/mm3 1.0-5.0 L MONOCYTE # (test code = MO#) 0.40 K/mm3 0-0.8 N EOSINOPHIL # (test code = EO#) 0.34 K/mm3 0.0-0.5 N BASOPHIL # (test code = BA#) 0.04 K/mm3 0.0-0.2 N NUCLEATED RBC # (test code = 0.00 K/mm3 0.0-0.1 N NRBC#) MANUAL DIFF REQUIRED (test code NO = MDIFF) BASIC METABOLIC [id number] 04:40:00 Test Item Value Reference Range Interpretation Comments SODIUM (test code = 139 mmol/L 136-145 N NA) POTASSIUM (test 3.3 mmol/L 3.5-5.1 L code = K) CHLORIDE (test code 108.0 mmol/L 98-107 H = CL) CARBON DIOXIDE 19.0 mmol/L 21-32 L (test code = CO2) ANION GAP (test 15.3 10-20 N code = GAP) GLUCOSE (test code 110 mg/dL 74-106 H = GLU) BLOOD UREA NITROGEN 10 mg/dL 7-18 N (test code = BUN) GLOMERULAR > 60 mL/min See_Comment The Glomerular FILTRATION RATE Filtration R ate is a (test code = GFR) calculated parameterbased on serum Creatinin e, patient age and sex. GFR valuesless than 60 mL/min/1.73 squ are meters are josh cative ofChronic Kidne y Disease. Values less than 15 mL/min/1.73squa re meters indicate Kidney failure. The calculation for GFR is based on the CK D-EPI (2020) calculat ion. This formulais race indifferent and is the recommended for sebastian for GFRby the N [facility] Foundati on for Adults.The GFR will not calculate i f the sex is unknown or if thepatient's ag e is <18 years. [Aut omated message] The sy stem which generated this result transmit hanna reference range : >=60. The reference r ruben was not used to interpret this result as normal/abnor mal. CREATININE (test 0.80 mg/dL 0.7-1.3 N code = CREAT) BUN/CREATININE 13.2 10-20 N RATIO (test code = BUN/CREA) CALCIUM (test code 8.1 mg/dL 8.5-10.1 L = CA) CBC W/AUTO [id number] 04:17:00 Test Item Value Reference Range Interpretation Comments WHITE BLOOD CELL (test code = 7.6 K/mm3 4.5-12.5 N WBC) RED BLOOD CELL (test code = 4.31 mill/mm3 4.0-5.8 N RBC) HEMOGLOBIN (test code = HGB) 13.4 gram/dL 13.0-17.5 N HEMATOCRIT (test code = HCT) 39.6 % 42.0-52.0 L MEAN CELL VOLUME (test code = 91.9 fL 80-98 N MCV) MEAN CELL HGB (test code = MCH) 31.1 picogram 27.0-33.0 N MEAN CELL HGB CONCETRATION 33.8 gram/dL 33.0-36.0 N (test code = MCHC) RED CELL DISTRIBUTION WIDTH 12.2 % 11.6-16.2 N (test code = RDW) RED CELL DISTRIBUTION WIDTH SD 41.7 fL 37.0-51.0 N (test code = RDW-SD) PLATELET COUNT (test code = 285 K/mm3 150-450 N PLT) MEAN PLATELET VOLUME (test code 9.8 fL 6.7-11.0 N = MPV) NEUTROPHIL % (test code = NT%) 74.0 % 39.0-69.0 H IMMATURE GRANULOCYTE % (test 0.5 % 0.0-5.0 N code = IG%) LYMPHOCYTE % (test code = LY%) 14.1 % 25.0-55.0 L MONOCYTE % (test code = MO%) 6.2 % 0.0-10.0 N EOSINOPHIL % (test code = EO%) 4.5 % 0.0-5.0 N BASOPHIL % (test code = BA%) 0.7 % 0.0-1.0 N NEUTROPHIL # (test code = NT#) 5.60 K/mm3 1.8-7.7 N LYMPHOCYTE # (test code = LY#) 1.07 K/mm3 1.0-5.0 N MONOCYTE # (test code = MO#) 0.47 K/mm3 0-0.8 N EOSINOPHIL # (test code = EO#) 0.34 K/mm3 0.0-0.5 N BASOPHIL # (test code = BA#) 0.05 K/mm3 0.0-0.2 N NUCLEATED RBC % (test code = 0.0 % 0-0 N NRBC%) IMMATURE GRANULOCYTE # (test 0.04 x10 3/uL 0-0.03 H code = IG#) NUCLEATED RBC # (test code = 0.00 K/mm3 0.0-0.1 N NRBC#) BASIC METABOLIC [id number] 06:02:00 Test Item Value Reference Range Interpretation Comments SODIUM (test code = 142 mmol/L 136-145 N NA) POTASSIUM (test 4.1 mmol/L 3.5-5.1 N code = K) CHLORIDE (test code 112.0 mmol/L 98-107 H = CL) CARBON DIOXIDE 20.0 mmol/L 21-32 L (test code = CO2) ANION GAP (test 14.1 10-20 N code = GAP) GLUCOSE (test code 76 mg/dL 74-106 N = GLU) BLOOD UREA NITROGEN 16 mg/dL 7-18 RESULT V ERIFIED BY (test code = BUN) REPEAT DELFINA LYSIS GLOMERULAR > 60 mL/min See_Comment The Glomerular FILTRATION RATE Filtration R ate is a (test code = GFR) calculated parameterbased on serum Creatinin e, patient age and sex. GFR valuesless than 60 mL/min/1.73 squ are meters are josh cative ofChronic Kidne y Disease. Values less than 15 mL/min/1.73squa re meters indicate Kidney failure. The calculation for GFR is based on the CK D-EPI (2020) calculat ion. This formulais race indifferent and is the recommended for sebastian for GFRby the N [facility] Kid[facility] Foundati on for Adults.The GFR will not calculate i f the sex is unknown or if thepatient's ag e is <18 years. [Aut omated message] The sy stem which generated this result transmit hanna reference range : >=60. The reference r ruben was not used to interpret this result as normal/abnor mal. CREATININE (test 0.80 mg/dL 0.7-1.3 N code = CREAT) BUN/CREATININE 20.0 10-20 N RATIO (test code = BUN/CREA) CALCIUM (test code 7.9 mg/dL 8.5-10.1 L = CA) CBC W/AUTO [id number] 05:36:00 Test Item Value Reference Range Interpretation Comments WHITE BLOOD CELL (test code = 7.3 K/mm3 4.5-12.5 N WBC) RED BLOOD CELL (test code = 3.99 mill/mm3 4.0-5.8 L RBC) HEMOGLOBIN (test code = HGB) 12.3 gram/dL 13.0-17.5 L HEMATOCRIT (test code = HCT) 37.9 % 42.0-52.0 L MEAN CELL VOLUME (test code = 95.0 fL 80-98 N MCV) MEAN CELL HGB (test code = MCH) 30.8 picogram 27.0-33.0 N MEAN CELL HGB CONCETRATION 32.5 gram/dL 33.0-36.0 L (test code = MCHC) RED CELL DISTRIBUTION WIDTH 12.6 % 11.6-16.2 N (test code = RDW) RED CELL DISTRIBUTION WIDTH SD 43.8 fL 37.0-51.0 N (test code = RDW-SD) PLATELET COUNT (test code = 263 K/mm3 150-450 N PLT) MEAN PLATELET VOLUME (test code 10.1 fL 6.7-11.0 N = MPV) NEUTROPHIL % (test code = NT%) 71.6 % 39.0-69.0 H IMMATURE GRANULOCYTE % (test 0.5 % 0.0-5.0 N code = IG%) LYMPHOCYTE % (test code = LY%) 13.8 % 25.0-55.0 L MONOCYTE % (test code = MO%) 8.5 % 0.0-10.0 N EOSINOPHIL % (test code = EO%) 5.3 % 0.0-5.0 H BASOPHIL % (test code = BA%) 0.3 % 0.0-1.0 N NEUTROPHIL # (test code = NT#) 5.23 K/mm3 1.8-7.7 N LYMPHOCYTE # (test code = LY#) 1.01 K/mm3 1.0-5.0 N MONOCYTE # (test code = MO#) 0.62 K/mm3 0-0.8 N EOSINOPHIL # (test code = EO#) 0.39 K/mm3 0.0-0.5 N BASOPHIL # (test code = BA#) 0.02 K/mm3 0.0-0.2 N NUCLEATED RBC % (test code = 0.0 % 0-0 N NRBC%) IMMATURE GRANULOCYTE # (test 0.04 x10 3/uL 0-0.03 H code = IG#) NUCLEATED RBC # (test code = 0.00 K/mm3 0.0-0.1 N NRBC#) - RETRO [id number] 17:44:00 [facility] ([facility])Name: KAYLA HO : 1945 Sex: M Name: KAYLA HO [facility] : 1945 Age/S: 76 / M Jennifer Raymond Unit #: [id number] Loc: [place] [address] Phys: Adonis Womack NP Acct: [id number] Dis Date: Status: ADM IN PHONE #: [phone] Exam Date: 06/03/2022 1721 FAX #: [phone] Reason: acute kidney failure EXAMS: CPT CODE: [id number] US RETRO LTD [id number] REASON FOR EXAM: acute kidney failure EXAM ORDER DATE: 06/03/2022 9:50 AM Attending MBentley: Adonis Womack NP PROCEDURE: - US RETRO LTD Comparison: CT of the chest May 25, 2022 which includes the upper abdomen FINDINGS: Right kidney: Absent Left kidney: parenchyma echogenicity: Normal echogenicity size: 13.7 x 7.6 x 5.2 cm. stones: none cysts/masses: none hydronephrosis: none Urinary Bladder: Decompressed by Leyva catheter which limits evaluation. 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 Otherwise the left kidney is sonographically unremarkable. Location: [facility] at 1744 Reported and signed by: Sai Redman MD CC: Taiwo Reynolds MD; Salome Womack; Jaqueline Zhao NP Technologist: Suzette Aquino Trnscb Date/Time: 06/03/2022 (174) [email or web address] Print D/T: S: 06/03/2022 ([id number]) Probe: PAGE 1 Signed ReportARTERIAL BLOOD [id number] 17:20:00 Test Item Value Reference Range Interpretation Comments ARTERIAL BLOOD GAS PH 7.50 7.35-7.45 H (test code = PHA) ARTERIAL BLOOD GAS PCO2 20.2 mm Hg 35-45 LL Resu lts called (test code = PCO2A) to and marichuy ead back by Jimy 17:19 - 06/03/2022; by BW ARTERIAL BLOOD GAS PO2 70.3 mmHg 80-100 L (test code = PO2A) BICARBONATE TOTAL HCO3 15.4 mmol/L 23.0-27.0 L (test code = HCO3) BASE EXCESS (test code = -5.0 mmol/L -3.0-5.0 LL Res ults called YEISON) to and read back by Jimy 17:19 - 06/03/2022; by BW ABG O2 SATURATION (test 94.8 % 90.0-98.0 N code = SATA) ABG TYPE (test code = Arterial TYPEA) FIO2 (test code = FIO2A) 21.0 ABG SITE (test code = Rt RADIAL SITEA) ARTERY MODIFIED ALLENS (test Yes CHECK PERFORMED code = MODALL) HEMATOCRIT (test code = 45 % 42-52 N HCT/ABG) TOTAL HGB (test code = 15.2 gram/dL 13.0-17.5 N THB) HGB O2 SAT (test code = 93.9 % 94.00-98.00 L HBOSAT) CARBOXYHEMOGLOBIN (test 0.5 %totalHg 0.5-1.5 N code = HOHGBT) METHEMOGLOBIN (test code 0.5 % 0.0-1.50 N = METHGB) O2 CONTENT (test code = 20.1 % vol 18.0-22.0 N O2CT) BASIC METABOLIC [id number] 14:01:00 Test Item Value Reference Range Interpretation Comments SODIUM (test code = 140 mmol/L 136-145 N NA) POTASSIUM (test 4.5 mmol/L 3.5-5.1 N code = K) CHLORIDE (test code 110.0 mmol/L 98-107 H = CL) CARBON DIOXIDE 16.0 mmol/L 21-32 L (test code = CO2) ANION GAP (test 18.5 10-20 N code = GAP) GLUCOSE (test code 161 mg/dL 74-106 H = GLU) BLOOD UREA NITROGEN 72 mg/dL 7-18 H (test code = BUN) GLOMERULAR 9 mL/min See_Comment The Glomerular FILTRATION RATE Filtration R ate is a (test code = GFR) calculated parameterbased on serum Creatinin e, patient age and sex. GFR valuesless than 60 mL/min/1.73 squ are meters are josh cative ofChronic Kidne y Disease. Values less than 15 mL/min/1.73squa re meters indicate Kidney failure. The calculation for GFR is based on the CK D-EPI (2020) calculat ion. This formulais race indifferent and is the recommended for sebastian for GFRby the N [facility] Foundati on for Adults.The GFR will not calculate i f the sex is unknown or if thepatient's ag e is <18 years. [Aut omated message] The sy stem which generated this result transmit hanna reference range : >=60. The reference r ruben was not used to interpret this result as normal/abnor mal. CREATININE (test 5.90 mg/dL 0.7-1.3 H code = CREAT) BUN/CREATININE 12.3 10-20 N RATIO (test code = BUN/CREA) CALCIUM (test code 8.4 mg/dL 8.5-10.1 L = CA) URINALYSIS [id number] 13:00:00 Test Item Value Reference Range Interpretation Comments UA COLOR (test code = YELLOW YELLOW COLU) UA APPEARANCE (test CLEAR CLEAR IS THE S AMPLE code = APPU) FROM ER OR L&D? Y IF THE ANSWER I S NO,PLEASE DOCUMENT TWO RN SIGNATURES HERE - N/Ana V.LAB.LT 06/03/22 1259 UA GLUCOSE DIPSTICK NEGATIVE mg/dL NEGATIVE (test code = DGLUU) UA BILIRUBIN DIPSTICK NEGATIVE mg/dL NEGATIVE (test code = BILU) UA KETONE DIPSTICK NEGATIVE mg/dL NEGATIVE (test code = KETU) UA SPECIFIC GRAVITY 1.017 1.001-1.035 (test code = SGU) UA BLOOD DIPSTICK 0.06 mg/dL (1+) NEGATIVE A (test code = JAMIL) mg/dL UA PH DIPSTICK (test 5.5 5.0-8.0 code = JOSEPHINE) UA PROTEIN DIPSTICK NEGATIVE mg/dL NEGATIVE (test code = PROU) UA UROBILINIOGEN Normal mg/dL NEGATIVE DIPSTICK (test code = URO) UA NITRITE DIPSTICK NEGATIVE NEGATIVE (test code = SABA) UA LEUKOCYTE ESTERASE NEGATIVE Gilma/uL NEGATIVE W REFLEX (test code = LEUUR) UA WBC (test code = 0-5 per HPF 0-5 WBCU) UA RBC (test code = 11-20 #/HPF 0-5 A RBCU) UA EPITHELIAL CELLS None seen per FEW (test code = EPIU) HPF UA BACTERIA (test NONE SEEN #/HPF NONE code = BACU) SPECIMEN COMMENTS: nCOMMENTS TO BRUSHER OPERATOR: nUrine Source? MidstreamBASIC METABOLIC [id number] 09:13:00 Test Item Value Reference Range Interpretation Comments SODIUM (test code = 139 mmol/L 136-145 N NA) POTASSIUM (test 4.6 mmol/L 3.5-5.1 N code = K) CHLORIDE (test code 108.0 mmol/L 98-107 H = CL) CARBON DIOXIDE 16.0 mmol/L 21-32 L (test code = CO2) ANION GAP (test 19.6 10-20 N code = GAP) GLUCOSE (test code 131 mg/dL 74-106 H = GLU) BLOOD UREA NITROGEN 75 mg/dL 7-18 H (test code = BUN) GLOMERULAR 9 mL/min See_Comment The Glomerular FILTRATION RATE Filtration R ate is a (test code = GFR) calculated parameterbased on serum Creatinin e, patient age and sex. GFR valuesless than 60 mL/min/1.73 squ are meters are josh cative ofChronic Kidne y Disease. Values less than 15 mL/min/1.73squa re meters indicate Kidney failure. The calculation for GFR is based on the CK D-EPI (2020) calculat ion. This formulais race indifferent and is the recommended for sebastian for GFRby the N ational Kidney Foundati on for Adults.The GFR will not calculate i f the sex is unknown or if thepatient's ag e is <18 years. [Aut omated message] The sy stem which generated this result transmit hanna reference range : >=60. The reference r ruben was not used to interpret this result as normal/abnor mal. CREATININE (test 5.90 mg/dL 0.7-1.3 H code = CREAT) BUN/CREATININE 12.6 10-20 N RATIO (test code = BUN/CREA) CALCIUM (test code 8.4 mg/dL 8.5-10.1 L = CA) [id number] 09:13:00 Test Item Value Reference Range Interpretation Comments MAGNESIUM (test code = MAG) 2.1 mg/dL 1.8-2.4 N CBC W/AUTO [id number] 08:33:00 Test Item Value Reference Range Interpretation Comments WHITE BLOOD CELL (test code = 12.4 K/mm3 4.5-12.5 N WBC) RED BLOOD CELL (test code = 4.38 mill/mm3 4.0-5.8 N RBC) HEMOGLOBIN (test code = HGB) 13.7 gram/dL 13.0-17.5 N HEMATOCRIT (test code = HCT) 40.8 % 42.0-52.0 L MEAN CELL VOLUME (test code = 93.2 fL 80-98 N MCV) MEAN CELL HGB (test code = MCH) 31.3 picogram 27.0-33.0 N MEAN CELL HGB CONCETRATION 33.6 gram/dL 33.0-36.0 N (test code = MCHC) RED CELL DISTRIBUTION WIDTH 13.1 % 11.6-16.2 N (test code = RDW) RED CELL DISTRIBUTION WIDTH SD 44.8 fL 37.0-51.0 N (test code = RDW-SD) PLATELET COUNT (test code = 308 K/mm3 150-450 N PLT) MEAN PLATELET VOLUME (test code 10.3 fL 6.7-11.0 N = MPV) NEUTROPHIL % (test code = NT%) 84.7 % 39.0-69.0 H IMMATURE GRANULOCYTE % (test 0.6 % 0.0-5.0 N code = IG%) LYMPHOCYTE % (test code = LY%) 6.3 % 25.0-55.0 L MONOCYTE % (test code = MO%) 6.9 % 0.0-10.0 N EOSINOPHIL % (test code = EO%) 1.3 % 0.0-5.0 N BASOPHIL % (test code = BA%) 0.2 % 0.0-1.0 N NUCLEATED RBC % (test code = 0.0 % 0-0 N NRBC%) NEUTROPHIL # (test code = NT#) 10.49 K/mm3 1.8-7.7 H IMMATURE GRANULOCYTE # (test 0.08 x10 3/uL 0-0.03 H code = IG#) LYMPHOCYTE # (test code = LY#) 0.78 K/mm3 1.0-5.0 L MONOCYTE # (test code = MO#) 0.86 K/mm3 0-0.8 H EOSINOPHIL # (test code = EO#) 0.16 K/mm3 0.0-0.5 N BASOPHIL # (test code = BA#) 0.02 K/mm3 0.0-0.2 N NUCLEATED RBC # (test code = 0.00 K/mm3 0.0-0.1 N NRBC#) - XR ABDOMEN AP 1 [id number] 15:13:00 [facility] : 1945 Sex: M FAX: Taiwo Reynolds MD [phone] [place]: [address]: ADM FAX: Evon Dorado [phone] FAX:Jaqueline Zhao BIOLOGY MANAGER Name: KAYLA HO [facility] Hospital : 1945 Age/S: 76/M Jennifer Octavio Formerly [facility] Unit #: [id number] Loc:.[facility] [place] [address] Phys: Evon Dorado Acct: [id number] Dis Date: Status: ADM IN PHONE#: [phone] Exam Date: 05/30/2022 1443 FAX #: [phone] Reason: Distention EXAMS: CPT CODE: [id number] XR ABDOMEN AP 1 V 79324 HISTORY: Distention PROCEDURE: - XR ABDOMEN AP 1 V COMPARISON: None FINDINGS: Nonobstructive bowel gas pattern. No significant stool burden. No intra-abdominal mass effect. No abnormal calcifications are observed. 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 There are degenerative changes in the bilateral hips. IMPRESSION: No radiographic evidence of acute intra-abdominal process. Location: [facility] at 1513 Reportedand signed by: Sai Redman MD CC: Taiwo Reynolds MD; Evon Dorado; Jaqueline Zhao NP Technologist: BRICE TIAN Trnscrd Date/Time/By: 05/30/2022 (1513) : By: [email or web address] Orig Print D/T: S: 05/31/2022 (3836) PAGE 1 Signed ReportBASIC METABOLIC [id number] 07:22:00 Test Item Value Reference Range Interpretation Comments SODIUM (test code = 140 mmol/L 136-145 N NA) POTASSIUM (test 3.6 mmol/L 3.5-5.1 N code = K) CHLORIDE (test code 107.0 mmol/L 98-107 N = CL) CARBON DIOXIDE 21.0 mmol/L 21-32 N (test code = CO2) ANION GAP (test 15.6 10-20 N code = GAP) GLUCOSE (test code 79 mg/dL 74-106 N = GLU) BLOOD UREA NITROGEN 18 mg/dL 7-18 N (test code = BUN) GLOMERULAR > 60 mL/min See_Comment The Glomerular FILTRATION RATE Filtration R ate is a (test code = GFR) calculated parameterbased on serum Creatinin e, patient age and sex. GFR valuesless than 60 mL/min/1.73 squ are meters are josh cative ofChronic Kidne y Disease. Values less than 15 mL/min/1.73squa re meters indicate Kidney failure. The calculation for GFR is based on the CK D-EPI (2020) calculat ion. This formulais race indifferent and is the recommended for sebastian for GFRby the N ational Kidney Foundati on for Adults.The GFR will not calculate i f the sex is unknown or if thepatient's ag e is <18 years. [Aut omated message] The sy stem which generated this result transmit hanna reference range : >=60. The reference r ruben was not used to interpret this result as normal/abnor mal. CREATININE (test 1.10 mg/dL 0.7-1.3 N code = CREAT) BUN/CREATININE 16.8 10-20 N RATIO (test code = BUN/CREA) CALCIUM (test code 8.7 mg/dL 8.5-10.1 N = CA) CBC W/AUTO [id number] 06:05:00 Test Item Value Reference Range Interpretation Comments WHITE BLOOD CELL (test code = 7.9 K/mm3 4.5-12.5 N WBC) RED BLOOD CELL (test code = 4.34 mill/mm3 4.0-5.8 N RBC) HEMOGLOBIN (test code = HGB) 13.5 gram/dL 13.0-17.5 N HEMATOCRIT (test code = HCT) 39.9 % 42.0-52.0 L MEAN CELL VOLUME (test code = 91.9 fL 80-98 N MCV) MEAN CELL HGB (test code = MCH) 31.1 picogram 27.0-33.0 N MEAN CELL HGB CONCETRATION 33.8 gram/dL 33.0-36.0 N (test code = MCHC) RED CELL DISTRIBUTION WIDTH 12.5 % 11.6-16.2 N (test code = RDW) RED CELL DISTRIBUTION WIDTH SD 42.3 fL 37.0-51.0 N (test code = RDW-SD) PLATELET COUNT (test code = 235 K/mm3 150-450 N PLT) MEAN PLATELET VOLUME (test code 10.4 fL 6.7-11.0 N = MPV) NEUTROPHIL % (test code = NT%) 71.3 % 39.0-69.0 H IMMATURE GRANULOCYTE % (test 0.6 % 0.0-5.0 N code = IG%) LYMPHOCYTE % (test code = LY%) 17.2 % 25.0-55.0 L MONOCYTE % (test code = MO%) 9.5 % 0.0-10.0 N EOSINOPHIL % (test code = EO%) 1.1 % 0.0-5.0 N BASOPHIL % (test code = BA%) 0.3 % 0.0-1.0 N NUCLEATED RBC % (test code = 0.0 % 0-0 N NRBC%) NEUTROPHIL # (test code = NT#) 5.63 K/mm3 1.8-7.7 N IMMATURE GRANULOCYTE # (test 0.05 x10 3/uL 0-0.03 H code = IG#) LYMPHOCYTE # (test code = LY#) 1.36 K/mm3 1.0-5.0 N MONOCYTE # (test code = MO#) 0.75 K/mm3 0-0.8 N EOSINOPHIL # (test code = EO#) 0.09 K/mm3 0.0-0.5 N BASOPHIL # (test code = BA#) 0.02 K/mm3 0.0-0.2 N NUCLEATED RBC # (test code = 0.00 K/mm3 0.0-0.1 N NRBC#) Novel Coronavirus 21:12:00 Test Item Value Reference Range Interpretation Comments Novel Coronavirus Negative Negative Positive r esults are 2019 Inhouse (test indicativ e of the presence code = [id number]) ofSARS-CoV -2 RNA, clinical correlation wit h patient historyand othe r diagnostic info rmation is necessary to determinepatien t infection status. Positiv e results do not rule out bacterial infection or co -infection with other viru ses. Negative result s do not preclude SARS-C oV-2 infection andsh ould not be used as the sophie e basis for patient managementdecis ions. Negative result s must be combined with otherclinical observations, p atient history, and epidemiological information . Detection of SARS-CoV-2 RNA may be affe cted bysample collec tion methods, storag e conditions, and /or stageof infection. Isabela l RNA mutations, vacc inations, antiviraltherap eutics, antibiotics, chemotherapeuti c orimmunosuppres lala drugs have not been e valuated for effectson d etection. Results are for the identification of SARS-CoV-2 RNA usingreal-time (RT) polymerase mac n reaction (PCR) technolog yfor the qualitative det ection of nucleic acids f rom [id number] v irus and diagnosis of SA RS-CoV-2 virusinfection. It is an Emergency Use Authorization ( EUA) testauthorized by the U.S. FDA. Novel Coronavirus 21:12:00 Test Item Value Reference Range Interpretation Comments Novel Coronavirus Negative Negative Positive r esults are 2019 Inhouse (test indicativ e of the presence code = [id number]) ofSARS-CoV -2 RNA, clinical correlation wit h patient historyand othe r diagnostic info rmation is necessary to determinepatien t infection status. Positiv e results do not rule out bacterial infection or co -infection with other viru ses. Negative result s do not preclude SARS-C oV-2 infection andsh ould not be used as the sophie e basis for patient managementdecis ions. Negative result s must be combined with otherclinical observations, p atient history, and epidemiological information . Detection of SARS-CoV-2 RNA may be affe cted bysample collec tion methods, storag e conditions, and /or stageof infection. Isabela l RNA mutations, vacc inations, antiviraltherap eutics, antibiotics, chemotherapeuti c orimmunosuppres lala drugs have not been e valuated for effectson d etection. Results are for the identification of SARS-CoV-2 RNA usingreal-time (RT) polymerase mac n reaction (PCR) technolog yfor the qualitative det ection of nucleic acids f rom [id number] v irus and diagnosis of SA RS-CoV-2 virusinfection. It is an Emergency Use Authorization ( EUA) testauthorized by the U.S. FDA. BASIC METABOLIC [id number] 08:50:00 Test Item Value Reference Range Interpretation Comments SODIUM (test code = 139 mmol/L 136-145 N NA) POTASSIUM (test 3.9 mmol/L 3.5-5.1 N code = K) CHLORIDE (test code 106.0 mmol/L 98-107 N = CL) CARBON DIOXIDE 22.0 mmol/L 21-32 N (test code = CO2) ANION GAP (test 14.9 10-20 N code = GAP) GLUCOSE (test code 103 mg/dL 74-106 N = GLU) BLOOD UREA NITROGEN 12 mg/dL 7-18 N (test code = BUN) GLOMERULAR > 60 mL/min See_Comment The Glomerular FILTRATION RATE Filtration R ate is a (test code = GFR) calculated parameterbased on serum Creatinin e, patient age and sex. GFR valuesless than 60 mL/min/1.73 squ are meters are josh cative ofChronic Kidne y Disease. Values less than 15 mL/min/1.73squa re meters indicate Kidney failure. The calculation for GFR is based on the CK D-EPI (2020) calculat ion. This formulais race indifferent and is the recommended for sebastian for GFRby the N ational Kidney Foundati on for Adults.The GFR will not calculate i f the sex is unknown or if thepatient's ag e is <18 years. [Aut omated message] The sy stem which generated this result transmit hanna reference range : >=60. The reference r ruben was not used to interpret this result as normal/abnor mal. CREATININE (test 1.00 mg/dL 0.7-1.3 N code = CREAT) BUN/CREATININE 12.6 10-20 N RATIO (test code = BUN/CREA) CALCIUM (test code 8.8 mg/dL 8.5-10.1 N = CA) CBC W/AUTO [id number] 08:25:00 Test Item Value Reference Range Interpretation Comments WHITE BLOOD CELL (test code = 7.1 K/mm3 4.5-12.5 N WBC) RED BLOOD CELL (test code = 4.45 mill/mm3 4.0-5.8 N RBC) HEMOGLOBIN (test code = HGB) 14.3 gram/dL 13.0-17.5 N HEMATOCRIT (test code = HCT) 41.3 % 42.0-52.0 L MEAN CELL VOLUME (test code = 92.8 fL 80-98 N MCV) MEAN CELL HGB (test code = MCH) 32.1 picogram 27.0-33.0 N MEAN CELL HGB CONCETRATION 34.6 gram/dL 33.0-36.0 N (test code = MCHC) RED CELL DISTRIBUTION WIDTH 12.7 % 11.6-16.2 N (test code = RDW) RED CELL DISTRIBUTION WIDTH SD 43.3 fL 37.0-51.0 N (test code = RDW-SD) PLATELET COUNT (test code = 199 K/mm3 150-450 N PLT) MEAN PLATELET VOLUME (test code 10.1 fL 6.7-11.0 N = MPV) NEUTROPHIL % (test code = NT%) 81.8 % 39.0-69.0 H IMMATURE GRANULOCYTE % (test 0.4 % 0.0-5.0 N code = IG%) LYMPHOCYTE % (test code = LY%) 8.9 % 25.0-55.0 L MONOCYTE % (test code = MO%) 8.5 % 0.0-10.0 N EOSINOPHIL % (test code = EO%) 0.1 % 0.0-5.0 N BASOPHIL % (test code = BA%) 0.3 % 0.0-1.0 N NUCLEATED RBC % (test code = 0.0 % 0-0 N NRBC%) NEUTROPHIL # (test code = NT#) 5.80 K/mm3 1.8-7.7 N IMMATURE GRANULOCYTE # (test 0.03 x10 3/uL 0-0.03 N code = IG#) LYMPHOCYTE # (test code = LY#) 0.63 K/mm3 1.0-5.0 L MONOCYTE # (test code = MO#) 0.60 K/mm3 0-0.8 N EOSINOPHIL # (test code = EO#) 0.01 K/mm3 0.0-0.5 N BASOPHIL # (test code = BA#) 0.02 K/mm3 0.0-0.2 N NUCLEATED RBC # (test code = 0.00 K/mm3 0.0-0.1 N NRBC#) MANUAL DIFF REQUIRED (test code NO = MDIFF) - XR CHEST 1 [id number] 11:37:00 [facility] ([facility])Name: KAYLA HO : 1945 Sex: M FAX: Taiwo Reynolds MD [phone] [place]: B St: ADM FAX: Evon Dorado [phone] FAX:Jaqueline Zhao 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 COMPARISON: May 25, 2022. Location: [facility]. No acute infiltrates, effusion or congestion is noted. Suboptimalinspiration. Dependent changes. Cardiomegaly. Elevated left hemidiaphragm with markedly distended air- filled stomach. IMPRESSION: No acute infiltrates, effusion or congestion. Suboptimal inspiration. Markedly distended air-filled stomach. at 1137 Reported and signed by: Renato Padilla M.D. 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 [facility] BASIC METABOLIC [id number] 02:02:00 Test Item Value Reference Range Interpretation Comments SODIUM (test code = 138 mmol/L 136-145 N NA) POTASSIUM (test 3.8 mmol/L 3.5-5.1 N code = K) CHLORIDE (test code 108.0 mmol/L 98-107 H = CL) CARBON DIOXIDE 22.0 mmol/L 21-32 N (test code = CO2) ANION GAP (test 11.8 10-20 N code = GAP) GLUCOSE (test code 76 mg/dL 74-106 N = GLU) BLOOD UREA NITROGEN 14 mg/dL 7-18 N (test code = BUN) GLOMERULAR > 60 mL/min See_Comment The Glomerular FILTRATION RATE Filtration R ate is a (test code = GFR) calculated parameterbased on serum Creatinin e, patient age and sex. GFR valuesless than 60 mL/min/1.73 squ are meters are josh cative ofChronic Kidne y Disease. Values less than 15 mL/min/1.73squa re meters indicate Kidney failure. The calculation for GFR is based on the CK D-EPI (2020) calculat ion. This formulais race indifferent and is the recommended for sebastian for GFRby the N ational Kidney Foundati on for Adults.The GFR will not calculate i f the sex is unknown or if thepatient's ag e is <18 years. [Aut omated message] The sy stem which generated this result transmit hanna reference range : >=60. The reference r ruben was not used to interpret this result as normal/abnor mal. CREATININE (test 0.90 mg/dL 0.7-1.3 N code = CREAT) BUN/CREATININE 15.4 10-20 N RATIO (test code = BUN/CREA) CALCIUM (test code 8.2 mg/dL 8.5-10.1 L = CA) CBC W/AUTO [id number] 01:36:00 Test Item Value Reference Range Interpretation Comments WHITE BLOOD CELL (test code = 5.8 K/mm3 4.5-12.5 N WBC) RED BLOOD CELL (test code = 4.23 mill/mm3 4.0-5.8 N RBC) HEMOGLOBIN (test code = HGB) 13.6 gram/dL 13.0-17.5 N HEMATOCRIT (test code = HCT) 40.0 % 42.0-52.0 L MEAN CELL VOLUME (test code = 94.6 fL 80-98 N MCV) MEAN CELL HGB (test code = MCH) 32.2 picogram 27.0-33.0 N MEAN CELL HGB CONCETRATION 34.0 gram/dL 33.0-36.0 N (test code = MCHC) RED CELL DISTRIBUTION WIDTH 12.8 % 11.6-16.2 N (test code = RDW) RED CELL DISTRIBUTION WIDTH SD 44.2 fL 37.0-51.0 N (test code = RDW-SD) PLATELET COUNT (test code = 166 K/mm3 150-450 N PLT) MEAN PLATELET VOLUME (test code 11.1 fL 6.7-11.0 H = MPV) NEUTROPHIL % (test code = NT%) 70.9 % 39.0-69.0 H IMMATURE GRANULOCYTE % (test 0.5 % 0.0-5.0 N code = IG%) LYMPHOCYTE % (test code = LY%) 11.6 % 25.0-55.0 L MONOCYTE % (test code = MO%) 11.2 % 0.0-10.0 H EOSINOPHIL % (test code = EO%) 5.5 % 0.0-5.0 H BASOPHIL % (test code = BA%) 0.3 % 0.0-1.0 N NUCLEATED RBC % (test code = 0.0 % 0-0 N NRBC%) NEUTROPHIL # (test code = NT#) 4.11 K/mm3 1.8-7.7 N IMMATURE GRANULOCYTE # (test 0.03 x10 3/uL 0-0.03 N code = IG#) LYMPHOCYTE # (test code = LY#) 0.67 K/mm3 1.0-5.0 L MONOCYTE # (test code = MO#) 0.65 K/mm3 0-0.8 N EOSINOPHIL # (test code = EO#) 0.32 K/mm3 0.0-0.5 N BASOPHIL # (test code = BA#) 0.02 K/mm3 0.0-0.2 N NUCLEATED RBC # (test code = 0.00 K/mm3 0.0-0.1 N NRBC#) - CT CHEST W/[id number] 07:10:00 [facility] ([facility])Name: KAYLA HO : 1945 Sex: M Name: KAYLA HO [facility] : 1945 Age/S: 76 / M [address] Unit #: [id number] Loc: [place] [address] Phys: Klaudia Osborn MD Acct: [id number] Dis Date: Status: ADM IN PHONE#: [phone] Exam Date: 05/25/2022 0456 FAX #: [phone] Reason: pneumonia vs other pathologiccause of hypoxia EXAMS: CPT CODE: [id number] CT CHEST W/CONTRAST 25373 HISTORY: Pneumonia. COMPARISON: Chest x-ray from same day. Location: [facility]. CT chest without contrast: CT dose reduction protocol: Automated exposure control adjustment of mA and/or kV according to patient size or iterative reconstruction dose optimization techniques were used. Unremarkable atherosclerotic aorta without dissection or aneurysm. Well-opacified SVC and the neck vasculature. Pulmonary arteries are very difficult to assess due to extensive artifact especially on the right side. If there is suspicion of pulmonary embolism then correlate with repeat examination using PE protocol. Thyroid glands are limited by motion. No pathologic adenopathy. Esophageal wall is not thickened. Cardiac silhouette is normal without pericardial effusion. Very heavy atherosclerotic calcifications of the LAD and the circumflex arteries andto lesser extent the right coronary artery. Visualized upper abdomen also limited by motion demonstrate evidence for right nephrectomy. Subcutaneous tissues and musculature are normal in appearance. Nolytic or blastic lesions visible within this motion limited exam. Vertebroplasty cement within the L1 vertebral body. The lungs are clear of infiltrates, effusion or congestion. Dependent changes. Elevated right hemidiaphragm. No bronchiectasis, honeycombing or fibrosis. No endobronchial lesions. No discrete lung mass or nodules. IMPRESSION: Markedly motion limited study especially for the pulmonary arteries with extensive artifact limiting evaluation however if there is suspicion for pulmonary embolism in recommend repeat exam using PE protocol for further evaluation. Unremarkable aorta. Lungs areclear of infiltrates, effusion or congestion. No pathologic adenopathy. at 0710 Reported and signed by: Renato Padilla M.D. PAGE 1 Signed Report (CONTINUED) Name: KAYLA HO [facility] : 1945 Age/S: 76 / M [address] [facility] Unit #: [id number] Loc: [place] [address] Phys: Klaudia Osborn MD Acct: [id number] Dis Date: Status:ADM IN PHONE #: [phone] Exam Date: 05/25/2022 0456 FAX #: [phone] Reason: pneumonia vs other pathologic cause of hypoxia EXAMS: CPT CODE: [id number] CT CHEST W/CONTRAST 22314 (Continued) CC: Klaudia Osborn MD; Jaqueline Zhao NP Technologist:Lyric Ceballos RT(R) CTDI: DLP: Trnscb Date/Time: 05/25/2022 (709) t.SDR.TH4 Orig Print D/T: S: 05/25/2022 (0713) PAGE 2 Signed ReportCOVID 19 INHOUSE [id number] 04:11:00 Test Item Value Reference Range Interpretation Comments COVID 19 INHOUSE AG (test code = NEGATIVE NEGATIVE [id number]) INFLUENZA A B [id number] 04:11:00 Test Item Value Reference Range Interpretation Comments INFLUENZA A POC (test code = Negative Negative INFLAAG) INFLUENZA B POC (test code = Negative Negative INFLBAG) SOURCE: [id number] 02:22:00 Test Item Value Reference Range Interpretation Comments TROPONIN-HS (test 10.820 pg/mL 0-45 N CAUTION: U nits of the code = TROPI) current test m ethodology (pg/mL)differ f rom the prior test meth odology (ng/mL) by a fa ctorof 1000. BASIC METABOLIC [id number] 02:22:00 Test Item Value Reference Range Interpretation Comments SODIUM (test code = 139 mmol/L 136-145 N NA) POTASSIUM (test 3.6 mmol/L 3.5-5.1 N code = K) CHLORIDE (test code 106.0 mmol/L 98-107 N = CL) CARBON DIOXIDE 24.0 mmol/L 21-32 N (test code = CO2) ANION GAP (test 12.6 10-20 N code = GAP) GLUCOSE (test code 88 mg/dL 74-106 N = GLU) BLOOD UREA NITROGEN 17 mg/dL 7-18 N (test code = BUN) GLOMERULAR > 60 mL/min See_Comment The Glomerular FILTRATION RATE Filtration R ate is a (test code = GFR) calculated parameterbased on serum Creatinin e, patient age and sex. GFR valuesless than 60 mL/min/1.73 squ are meters are josh cative ofChronic Kidne y Disease. Values less than 15 mL/min/1.73squa re meters indicate Kidney failure. The calculation for GFR is based on the CK D-EPI (2020) calculat ion. This formulais race indifferent and is the recommended for sebastian for GFRby the N [facility]at[facility] Foundati on for Adults.The GFR will not calculate i f the sex is unknown or if thepatient's ag e is <18 years. [Aut omated message] The sy stem which generated this result transmit hanna reference range : >=60. The reference r ruben was not used to interpret this result as normal/abnor mal. CREATININE (test 1.20 mg/dL 0.7-1.3 N code = CREAT) BUN/CREATININE 14.8 10-20 N RATIO (test code = BUN/CREA) CALCIUM (test code 9.0 mg/dL 8.5-10.1 N = CA) HEPATIC FUNCTION [id number] 02:22:00 Test Item Value Reference Range Interpretation Comments TOTAL PROTEIN (test 7.0 gram/dL 6.4-8.2 N code = PROT) ALBUMIN (test code = 3.9 g/dL 3.4-5.0 N ALB) GLOBULIN (test code = 3.1 gram/dL 2.7-4.2 N GLOB) ALBUMIN/GLOBULIN RATIO 1.3 0.75-1.50 N (test code = A/G) BILIRUBIN TOTAL (test 1.60 mg/dL 0.0-1.0 H code = BILT) BILIRUBIN DIRECT (test 0.60 mg/dL 0.0-0.20 H code = BILD) SGOT/AST (test code = 33 IUnit/L 15-37 N AST) SGPT/ALT (test code = 24 IUnit/L 12-78 N ALT) ALKALINE PHOSPHATASE 63 IUnit/L 45-117 N Note change in TOTAL (test code = reference range due ALKP) to change in reagent. LACTIC [id number] 02:17:00 Test Item Value Reference Range Interpretation Comments LACTIC ACID (test code = LACT) 0.7 mmol/L 0.4-1.9 N URINALYSIS [id number] 01:56:00 Test Item Value Reference Range Interpretation Comments UA COLOR (test code = YELLOW YELLOW COLU) UA APPEARANCE (test CLEAR CLEAR IS THE S AMPLE code = APPU) FROM ER OR L&D? Y IF THE ANSWER I S NO,PLEASE DOCUMENT TWO RN SIGNATURES HERE - Aries HunterLexie.SP61 05/25/22 0156 UA GLUCOSE DIPSTICK NEGATIVE mg/dL NEGATIVE (test code = DGLUU) UA BILIRUBIN DIPSTICK NEGATIVE mg/dL NEGATIVE (test code = BILU) UA KETONE DIPSTICK NEGATIVE mg/dL NEGATIVE (test code = KETU) UA SPECIFIC GRAVITY 1.022 1.001-1.035 (test code = SGU) UA BLOOD DIPSTICK Negative mg/dL NEGATIVE (test code = JAMIL) UA PH DIPSTICK (test 6.0 5.0-8.0 code = JOSEPHINE) UA PROTEIN DIPSTICK 10 (Trace) mg/dL NEGATIVE A (test code = PROU) UA UROBILINIOGEN Normal mg/dL NEGATIVE DIPSTICK (test code = URO) UA NITRITE DIPSTICK NEGATIVE NEGATIVE (test code = SABA) UA LEUKOCYTE ESTERASE NEGATIVE Gilma/uL NEGATIVE W REFLEX (test code = LEUUR) UA WBC (test code = 0-5 per HPF 0-5 WBCU) UA RBC (test code = 0-2 #/HPF 0-5 RBCU) UA EPITHELIAL CELLS None seen per FEW (test code = EPIU) HPF UA BACTERIA (test NONE SEEN #/HPF NONE code = BACU) UA MUCUS (test code = FEW #/LPF FEW MUCU) Indication for culture: RiskForSepsis-no oth [facility] W/AUTO [id number] 01:52:00 Test Item Value Reference Range Interpretation Comments WHITE BLOOD CELL (test code = 8.5 K/mm3 4.5-12.5 N WBC) RED BLOOD CELL (test code = 4.72 mill/mm3 4.0-5.8 N RBC) HEMOGLOBIN (test code = HGB) 14.9 gram/dL 13.0-17.5 N HEMATOCRIT (test code = HCT) 44.7 % 42.0-52.0 N MEAN CELL VOLUME (test code = 94.7 fL 80-98 N MCV) MEAN CELL HGB (test code = MCH) 31.6 picogram 27.0-33.0 N MEAN CELL HGB CONCETRATION 33.3 gram/dL 33.0-36.0 N (test code = MCHC) RED CELL DISTRIBUTION WIDTH 12.9 % 11.6-16.2 N (test code = RDW) RED CELL DISTRIBUTION WIDTH SD 44.0 fL 37.0-51.0 N (test code = RDW-SD) PLATELET COUNT (test code = 199 K/mm3 150-450 N PLT) MEAN PLATELET VOLUME (test code 10.8 fL 6.7-11.0 N = MPV) NEUTROPHIL % (test code = NT%) 85.1 % 39.0-69.0 H IMMATURE GRANULOCYTE % (test 0.2 % 0.0-5.0 N code = IG%) LYMPHOCYTE % (test code = LY%) 4.9 % 25.0-55.0 L MONOCYTE % (test code = MO%) 5.6 % 0.0-10.0 N EOSINOPHIL % (test code = EO%) 3.7 % 0.0-5.0 N BASOPHIL % (test code = BA%) 0.5 % 0.0-1.0 N NEUTROPHIL # (test code = NT#) 7.26 K/mm3 1.8-7.7 N LYMPHOCYTE # (test code = LY#) 0.42 K/mm3 1.0-5.0 L MONOCYTE # (test code = MO#) 0.48 K/mm3 0-0.8 N EOSINOPHIL # (test code = EO#) 0.32 K/mm3 0.0-0.5 N BASOPHIL # (test code = BA#) 0.04 K/mm3 0.0-0.2 N NUCLEATED RBC % (test code = 0.0 % 0-0 N NRBC%) IMMATURE GRANULOCYTE # (test 0.02 x10 3/uL 0-0.03 N code = IG#) NUCLEATED RBC # (test code = 0.00 K/mm3 0.0-0.1 N NRBC#) - XR CHEST 1 [id number] 01:08:00 [facility] 1945 Sex: M FAX: Terry Yao MD [phone] [place]: B St: REG Name: KAYLA HO [facility] : 1945 Age/S: 76/M [address] [facility] Unit #: [id number] Loc: [place] [address] Phys: Terry Yao MD Acct: [id number] Dis Date: Status: REG ER PHONE #: [phone] Exam Date: 05/25/202252 FAX #: [phone]: CODE SEPSIS EXAMS: CPT CODE: [id number] XR CHEST 1 V 73325 Dictation location: H3 Chest x-ray exam, single frontal projection, one view, 05/25/22 CLINICAL HISTORY: Code sepsis Comparison exam:None relevant to this exam FINDINGS: The lung volume is shallow. There is probable mild atelectatic changes versus less likely pneumonia noted medially at the left lung base. No lobar consolidation or pleural effusion. Prominence of the aortic knob and superior mediastinum possibly some related to shallow degree of inspiration. Cannot entirely exclude aneurysmal dilatation of the thoracic aorta. No hilar abnormality. Heart size is within normal limits. IMPRESSION: Probable atelectatic changes versusless likely pneumonia medially at the left lung base and patchy interstitial infiltrate and mild elevation left hemidiaphragm Lung volume is shallow limiting assessment Prominence of the aortic knob. Cannot entirely exclude aneurysmal dilatation of the thoracic aorta. at 0108 Reported and signed by: Mamie Her CC: Terry Yao MD Technologist: Keisha Willis RT(R) Trnscrd Date/Time/By: 05/25/2022 (0108) : By: [email or web address] Orig Print D/T: S: 05/25/2022 (0111) PAGE 1 Signed ReportCOVID 19 INHOUSE [id number] 06:17:00 Test Item Value Reference Range Interpretation Comments COVID 19 INHOUSE AG NEGATIVE Negative Per manu facturer, (test code = negative result s should [id number]) be treated aspr esumptive and, if inconsi stent with clinical signs andsymptoms or necessary for patient man agement, should betested with an alternative mol ecular assay. Negative resultsdo not preclude SA RS-CoV-2 infection and s hould not be usedas the s ole basis for patient man agement decisions. Nega tive results should be considered in t he context of apatient's r ecent exposures, hist ory, presence of cli nicalsigns and symptoms co nsistent with COVID-19. GLUCOSE BEDSIDE [id number] 17:07:00 Test Item Value Reference Range Interpretation Comments GLUCOSE BEDSIDE TESTING (test code = 77 mg/dL 70-110 N GLUBED) GLUCOSE BEDSIDE [id number] 10:14:00 Test Item Value Reference Range Interpretation Comments GLUCOSE BEDSIDE TESTING (test code = 89 mg/dL 70-110 N GLUBED) UA RFLX MICR CULT IF [id number] 08:39:00 Test Item Value Reference Range Interpretation Comments UA COLOR (test code = COLU) YELLOW discript YEL/STRAW UA APPEARANCE (test code = CLEAR discript CLEAR APPU) UA GLUCOSE DIPSTICK (test NEGATIVE mg/dL NEG code = DGLUU) UA BILIRUBIN DIPSTICK (test 1+ mg/dL NEG A code = BILU) UA KETONE DIPSTICK (test NEGATIVE mg/dL NEG code = KETU) UA SPECIFIC GRAVITY (test 1.020 SG 1.005-1.030 code = SGU) UA BLOOD DIPSTICK (test NEGATIVE mg/DL NEG code = JAMIL) UA PH DIPSTICK (test code = 6.5 pH UNITS 5.0-7.0 JOSEPHINE) UA PROTEIN DIPSTICK (test NEGATIVE mg/dL NEG code = PROU) UA UROBILINIOGEN DIPSTICK 2.0 mg/dL <2.0 A (test code = URO) UA NITRITE DIPSTICK (test NEGATIVE SCREEN NEG code = SABA) UA LEUKOCYTE ESTERASE NEGATIVE Leuk/mcL NEGATIVE DIPSTICK (test code = LEUU) UA CULTURE NEEDED? (test Criteria Culture CHK code = UACULT) Indication for culture: RiskForSepsis-no oth srcSOURCE OF URINE: CLEAN CATCH DRUGS OF ABUSE SCREEN [id number] 08:39:00 Test Item Value Reference Range Interpretation Comments URN COCAINE (test NEGATIVE See_Comment UNCONFIRME D code = COCAURN) SCcutoff SCREENING RE SULTS SHOULD NOT BE U SED FORNON-MEDICAL PURPOSES. [Automated message] The system which generated this result transmit hanna reference range : <300 NG/ML. The reference range was not used to interpret this result as normal/abnormal . URN CANNABINOIDS POSITIVE See_Comment A UNCONFIRMED (test code = SCcutoff SCREENING RESUL TS CANNABURN) SHOULD NOT BE U SED FORNON-MEDICAL PURPOSES. [Automated message] The system which generated this result transmit hanna reference range : <50 NG/ML. The reference range was not used to interpret this result as normal/abnormal . URN AMPHETAMINE (test NEGATIVE See_Comment UNCONF IRMED code = AMPHETURN) SCcutoff SCREENING RESULTS SHOULD NOT BE U SED FORNON-MEDICAL PURPOSES. [Automated message] The system which generated this result transmit hanna reference range : <1000 NG/ML. Th e reference range was not used to interpret this result as normal/abnormal . URN BARBITURATE (test NEGATIVE See_Comment UNCONF IRMED code = BARBITURN) SCcutoff SCREENING RESULTS SHOULD NOT BE U SED FORNON-MEDICAL PURPOSES. [Automated message] The system which generated this result transmit hanna reference range : <200 NG/ML. The reference range was not used to interpret this result as normal/abnormal . URN BENZODIAZEPINE NEGATIVE See_Comment UNCONFIRM ED (test code = SCcutoff SCREENING RESUL TS BENZOURN) SHOULD NOT BE U SED FORNON-MEDICAL PURPOSES. [Automated message] The system which generated this result transmit hanna reference range : <200 NG/ML. The reference range was not used to interpret this result as normal/abnormal . URN OPIATES (test NEGATIVE See_Comment UNCONFIRME D code = OPIATURN) SCcutoff SCREENING R ESULTS SHOULD NOT BE U SED FORNON-MEDICAL PURPOSES. [Automated message] The system which generated this result transmit hanna reference range : <300 NG/ML. The reference range was not used to interpret this result as normal/abnormal . URN PHENCYCLIDINE NEGATIVE See_Comment UNCONFIRME D (PCP) (test code = SCcutoff SCREENING RESULTS PHENCURN) SHOULD NOT BE U SED FORNON-MEDICAL PURPOSES. [Automated message] The system which generated this result transmit hanna reference range : <25 NG/ML. The reference range was not used to interpret this result as normal/abnormal . URN METHADONE (test NEGATIVE See_Comment UNCONFIR MED code = METHAURN) SCcutoff SCREENING R ESULTS SHOULD NOT BE U SED FORNON-MEDICAL PURPOSES. [Automated message] The system which generated this result transmit hanna reference range : <300 NG/ML. The reference range was not used to interpret this result as normal/abnormal . Indication for culture: RiskForSepsis-no oth srcSOURCE OF URINE: CLEAN CATCH [id number] 22:02:00 Test Item Value Reference Range Interpretation Comments ALCOHOL (test code = ALC) < 3 MG/DL 0-10 N Last Dose Date: 02/28/00 Dose Time: 0000BASIC METABOLIC [id number] 22:02:00 Test Item Value Reference Range Interpretation Comments SODIUM (test code = 138 mmol/L 134-147 N NA) POTASSIUM (test 4.0 mmol/L 3.4-5.0 N code = K) CHLORIDE (test code 109 mmol/L 100-108 H = CL) CARBON DIOXIDE 21 mmol/L 21-32 N (test code = CO2) ANION GAP (test 8.0 GAP calc 4.0-15.0 N code = GAP) GLUCOSE (test code 112 MG/DL 70-110 H = GLU) BLOOD UREA NITROGEN 11 MG/DL 7-18 N (test code = BUN) GLOMERULAR 53 estGFR >60 L The Glomerular FILTRATION RATE Filtration R ate is a (test code = GFR) calculated parameterbased on serum Creatinin e, patient age and sex. GFR valuesless than 60 mL/min/1.73 squ are meters are josh cative ofChronic Kidne y Disease. Values less than 15 mL/min/1.73squa re meters indicate Kidney failure. The calculation for GFR is based on the CK D-EPI (2020) calculat ion. This formulais race indifferent and is the recommended for sebastian for GFRby the [facility] on for Adults.The GFR will not calculate i f the sex is unknown or if thepatient's ag e is <18 years. CREATININE (test 1.4 MG/DL 0.8-1.3 H code = CREAT) CALCIUM (test code 9.3 MG/DL 8.5-10.1 N = CA) Last Dose Date: 02/28/00 Dose Time: 0000HEPATIC FUNCTION [id number] 22:02:00 Test Item Value Reference Range Interpretation Comments TOTAL PROTEIN (test code = PROT) 7.3 G/DL 6.4-8.2 N ALBUMIN (test code = ALB) 4.2 G/DL 3.4-5.0 N BILIRUBIN TOTAL (test code = BILT) 1.40 MG/DL 0.2-1.2 H BILIRUBIN DIRECT (test code = 0.40 MG/DL 0.00-0.30 H BILD) BILIRUBIN INDIRECT (test code = 1.00 MG/DL 0.2-1.2 N BILIND) SGOT/AST (test code = AST) 28 Unit/L 15-37 N SGPT/ALT (test code = ALT) 27 Unit/L 12-78 N ALKALINE PHOSPHATASE TOTAL (test 71 Unit/L 50-136 N code = ALKP) Last Dose Date: 02/28/00Las Dose Time: [id number] 22:02:00 Test Item Value Reference Range Interpretation Comments ACETAMINOPHEN (test code = ACET) <2.0 mcG/ML 10.0-30.0 L Last Dose Date: 02/28/00Las Dose Time: [id number] 21:55:00 Test Item Value Reference Range Interpretation Comments SALICYLATE (test code < 1.7 MG/DL See_Comment L [Auto mated message] = DANISH) The system [employer] generated this result transmitted ref erence range: 2.8-20.0 THER. The reference r ruben was not used to interpret this result as normal/abnor mal. CBC W/AUTO [id number] 21:50:00 Test Item Value Reference Range Interpretation Comments WHITE BLOOD CELL (test code = 8.2 K/mm3 3.5-11.0 N WBC) RED BLOOD CELL (test code = 5.30 M/mm3 4.70-6.10 N RBC) HEMOGLOBIN (test code = HGB) 16.8 G/DL 12.3-15.9 H HEMATOCRIT (test code = HCT) 47.2 % 35.8-46.7 H MEAN CELL VOLUME (test code = 89.1 Fl 86.3-98.9 N MCV) MEAN CELL HGB (test code = MCH) 31.7 pg 28.9-34.4 N MEAN CELL HGB CONCETRATION 35.6 G/DL 32.1-34.5 H (test code = MCHC) RED CELL DISTRIBUTION WIDTH 12.5 SD 11.5-14.5 N (test code = RDW) PLATELET COUNT (test code = 258 K/mm3 150-450 N PLT) MEAN PLATELET VOLUME (test code 10.30 fL 7.0-9.6 H = MPV) NEUTROPHIL % (test code = NT%) 72.2 % 40-76 N IMMATURE GRANULOCYTE % (test 0.2 % 0.0-5.0 N code = IG%) LYMPHOCYTE % (test code = LY%) 18.2 % 20.5-51.1 L MONOCYTE % (test code = MO%) 7.0 % 1.7-9.3 N EOSINOPHIL % (test code = EO%) 1.8 % 0.0-6.0 N BASOPHIL % (test code = BA%) 0.6 % 0.0-2.0 N NUCLEATED RBC % (test code = 0.0 /100WBC% 0.0-1.0 N NRBC%) NEUTROPHIL # (test code = NT#) 5.9 K/mm3 1.8-7.6 N IMMATURE GRANULOCYTE # (test 0.02 x10 3/uL 0.00-0.03 N code = IG#) LYMPHOCYTE # (test code = LY#) 1.5 K/mm3 0.6-3.0 N MONOCYTE # (test code = MO#) 0.6 K/mm3 0.2-1.5 N EOSINOPHIL # (test code = EO#) 0.2 K/mm3 0.0-0.4 N BASOPHIL # (test code = BA#) 0.1 K/mm3 0.0-0.2 N NUCLEATED RBC # (test code = 0.0 K/mm3 0.00-0.01 N NRBC#) MANUAL DIFF REQUIRED (test code NO DIFF/SCN CRITERIA = MDIFF) - CT HEAD/BRAIN W/O [id number] 21:50:00 [facility] 1945 Sex: M Name: ADRIANKAYLA [facility] : 1945 Age/S: 76 / M [address] Unit #: [id number] Loc: [place] [address] Phys: Lakhwinder Davis MD Acct: [id number] Dis Date: Status: PRE ER PHONE #: [phone] Exam Date: 05/16/20222142 FAX #: Reason: homicidal ideation, dementia EXAMS: CPT: [id number] CT HEAD/BRAIN W/O CONT 22711 Exam: CT head without contrast. Location: H 12 History: homicidal ideation,dementia Technique: Unenhanced spiral slices were taken from the base of the skull, through the vertex. One or more of the following dose reduction techniques were used: Automated exposure control, adjustment of the mA and/or kV according to patient size, and/or utilization of iterative reconstruction technique. Findings: No acute intracranial abnormality is identified. Prominence of the gyri and sulci is consistent with mild, diffuse cerebral atrophy. A few scattered microinfarcts are seen in the periventricular and subcortical deep white matter. The brain parenchyma and the CSF spaces are otherwise unremarkable. No mass, midline shift, hemorrhage, edema or hydrocephalus is seen. The visualized paranasal sinuses are clear. The mastoid air cells are well pneumatized. The bony calvarium is intact. Impression: 1. No acute intracranial abnormality. 2. Atrophy. 3. Atherosclerotic microvascular disease. 4. Otherwise unremarkable exam. at 2150 Reported and signed by: Fam Oneil M.D. CC: Technologist:RT Leila(R) CTDI: DLP: Trnscb Date/Time: 05/16/2022 (2149) t.SHANIQUA Orig Print D/T: S: 05/16/2022 (2152) PAGE 1 Signed ReportABORH Confirmation (Lab Only)2022-01-13 18:00:24 Test Item Value Reference Range Interpretation Comments ABO & RH (test code O Negative Performe d at [facility] = 20) Laboratory Serv ice - [facility] [address] [place], [place] [address]Toll Free: [phone] 266CLIA No. [id number] [facility] Confirm[facility] (Lab Only)2022-01-13 18:00:24 Test Item Value Reference Range Interpretation Comments ABO & RH (test code O Negative Performe d at [facility] = 20) Laboratory [facility] [address] [place] [address] 4Toll Free: [phone] 266CLIA No. [id number] [facility] and Screen - ONCE [id number] 17:09:42 Test Item Value Reference Range Interpretation Comments ABO & RH (test code O Negative Performe d at [facility] = 20) Laboratory [facility] [address] [place] [address] 4Toll Free: [phone] 266CLIA No. [id number] IAT (test code = Negative Performed a t [facility] 1185) Laboratory [facility] [address] [place] [address] 4Toll Free: [phone] 266CLIA No. [id number] [facility] - ONCE [id number] 17:09:42 Test Item Value Reference Range Interpretation Comments ABO & RH (test code O Negative Performe d at [facility] = 20) Laboratory [facility] [address] [place] [address] 4Toll Free: [phone] 266CLIA No. [id number] IAT (test code = Negative Performed a t [facility] 1185) Laboratory [facility] [address] [place] [address] 4Toll Free: [phone] 266CLIA No. [id number] [facility] WITH [id number] 16:51:42 Test Item Value Reference Range Interpretation Comments WBC (test code = See_Comment [Automated 0790-2) message] The sy stem which generated this result transmitted reference range : 4.20 - 10.70 10*3/?L. The reference range was not used to interpret this result as normal/abnormal . RBC (test code = See_Comment [Automated 906-8) message] The sy stem which generated this result transmitted reference range : 4.26 - 5.52 10*6/?L. The reference range was not used to interpret this result as normal/abnormal . HGB (test code = 15.3 g/dL 12.2-16.4 718-7) HCT (test code = 45.4 % 38.4-49.3 4544-3) MCV (test code = 91.9 fL 81.7-95.6 787-2) MCH (test code = 31.0 pg 26.1-32.7 785-6) MCHC (test code = 33.7 g/dL 31.2-35.0 786-4) RDW-SD (test code = 42.8 fL 38.5-51.6 05621-7) RDW-CV (test code = 12.7 % 12.1-15.4 788-0) PLT (test code = See_Comment [Automated 777-3) message] The sy stem which generated this result transmitted reference range : 150 - 328 10*3/ ?L. The reference r ruben was not used to interpret this result as normal/abnormal . MPV (test code = 10.1 fL 9.8-13.0 34520-7) NRBC/100 WBC (test See_Comment [Automat ed code = 9186290194) message] The system which generated this result transmitted reference range : 0.0 - 10.0 /100 WBCs. The refer ence range was not u sed to interpret th is result as normal/abnormal . NRBC x10^3 (test code See_Comment [Auto mated = 9868300781) message] The s ystem which generated this result transmitted reference range : 10*3/?L. The reference range was not used to interpret this result as normal/abnormal . GRAN MAT (NEUT) % 70.2 % (test code = 770-8) IMM GRAN % (test code 0.70 % = 1933219945) LYMPH % (test code = 13.8 % 736-9) MONO % (test code = 9.0 % 5905-5) EOS % (test code = 5.3 % 713-8) BASO % (test code = 1.0 % 706-2) GRAN MAT x10^3(ANC) 4.23 10*3/uL 1.99-6.95 (test code = 9529479966) IMM GRAN x10^3 (test 0.04 10*3/uL 0.00-0.06 code = 1840597283) LYMPH x10^3 (test code 0.83 10*3/uL 1.09-3.23 L = 731-0) MONO x10^3 (test code 0.54 10*3/uL 0.36-1.02 = 742-7) EOS x10^3 (test code = 0.32 10*3/uL 0.06-0.53 711-2) BASO x10^3 (test code 0.06 10*3/uL 0.01-0.09 = 704-7) Lab Interpretation Abnormal (test code = 42001-7) [facility] WITH [id number] 16:51:42 Test Item Value Reference Range Interpretation Comments WBC (test code = See_Comment [Automated 2090-2) message] The sy stem which generated this result transmitted reference range : 4.20 - 10.70 10*3/?L. The reference range was not used to interpret this result as normal/abnormal . RBC (test code = See_Comment [Automated 639-8) message] The sy stem which generated this result transmitted reference range : 4.26 - 5.52 10*6/?L. The reference range was not used to interpret this result as normal/abnormal . HGB (test code = 15.3 g/dL 12.2-16.4 718-7) HCT (test code = 45.4 % 38.4-49.3 4544-3) MCV (test code = 91.9 fL 81.7-95.6 787-2) MCH (test code = 31.0 pg 26.1-32.7 785-6) MCHC (test code = 33.7 g/dL 31.2-35.0 786-4) RDW-SD (test code = 42.8 fL 38.5-51.6 62392-7) RDW-CV (test code = 12.7 % 12.1-15.4 788-0) PLT (test code = See_Comment [Automated 957-3) message] The sy stem which generated this result transmitted reference range : 150 - 328 10*3/ ?L. The reference r ruben was not used to interpret this result as normal/abnormal . MPV (test code = 10.1 fL 9.8-13.0 80440-2) NRBC/100 WBC (test See_Comment [Automat ed code = 2928257125) message] The system which generated this result transmitted reference range : 0.0 - 10.0 /100 WBCs. The refer ence range was not u sed to interpret th is result as normal/abnormal . NRBC x10^3 (test code See_Comment [Auto mated = 8949223082) message] The s ystem which generated this result transmitted reference range : 10*3/?L. The reference range was not used to interpret this result as normal/abnormal . GRAN MAT (NEUT) % 70.2 % (test code = 770-8) IMM GRAN % (test code 0.70 % = 9052126585) LYMPH % (test code = 13.8 % 736-9) MONO % (test code = 9.0 % 5905-5) EOS % (test code = 5.3 % 713-8) BASO % (test code = 1.0 % 706-2) GRAN MAT x10^3(ANC) 4.23 10*3/uL 1.99-6.95 (test code = 3094225723) IMM GRAN x10^3 (test 0.04 10*3/uL 0.00-0.06 code = 5834639857) LYMPH x10^3 (test code 0.83 10*3/uL 1.09-3.23 L = 731-0) MONO x10^3 (test code 0.54 10*3/uL 0.36-1.02 = 742-7) EOS x10^3 (test code = 0.32 10*3/uL 0.06-0.53 711-2) BASO x10^3 (test code 0.06 10*3/uL 0.01-0.09 = 704-7) Lab Interpretation Abnormal (test code = 08141-4) [facility] Time / [id number] 16:42:58 Test Item Value Reference Range Interpretation Comments PROTIME PATIENT (test See_Comment [Auto mated message] code = 5964-2) The system wh ich generated this result transmitted ref erence range: 10.1 - 1 2.6 Seconds. The re ference range was not u sed to interpret this result as normal/abnor mal. INR (test code = 6301-6) Nor mal INR <1.1; Warfarin Therap eutic range 2.0 to 3. 0 or 2.5 to 3.5, dep ending upon the indica tions. Lab Interpretation (test Normal code = 57390-7) [facility] Time / [id number] 16:42:58 Test Item Value Reference Range Interpretation Comments PROTIME PATIENT (test See_Comment [Auto mated message] code = 5964-2) The system [employer] generated this result transmitted ref erence range: 10.1 - 1 2.6 Seconds. The re ference range was not u sed to interpret this result as normal/abnor mal. INR (test code = 6301-6) Nor mal INR <1.1; Warfarin Therap eutic range 2.0 to 3. 0 or 2.5 to 3.5, dep ending upon the indica tions. Lab Interpretation (test Normal code = 26882-5) [facility] METABOLIC PANEL (NA, K, CL, CO2, GLUCOSE, BUN, CREATININE, CA)2022-01-13 16:34:59 Test Item Value Reference Range Interpretation Comments NA (test code = 139 mmol/L 135-145 4177239027) K (test code = 4.2 mmol/L 3.5-5.0 6122802018) CL (test code = 105 mmol/L 98-108 6607027488) CO2 TOTAL (test code = 22 mmol/L 23-31 L 5136895508) AGAP (test code = 2-16 9525164492) BUN (test code = 13 mg/dL 7-23 6586524852) GLUCOSE (test code = 97 mg/dL 70-110 0404216744) CREATININE (test code = 1.05 mg/dL 0.60-1.25 3625688818) CALCIUM (test code = 9.0 mg/dL 8.6-10.6 3395306702) eGFR (test code = mL/min/1.73m2 9913478116) YAMIL (test code = YAMIL) Association of Glomerular Filtration Rate (GFR) and Staging of Kidney Disease* + --+ --+ ------+| GFR (mL/min/1.73 m2) ?| With Kidney Damage ?| ?Without Kidney Damage+ --------+ --------+ +| ?>90 ?| ?Stage one ?| ? Normal ?+ ---+ ---+ -------+| ?60-89 ?| ?Stage two ?| ? Decreased GFR ? + --+ --+ ------+| ?30-59 ?| ?Stage three ?| ? Stage three ? + --+ --+ ------+| ?15-29 ?| ?Stage four ? | ? Stage four ?+ ---+ ---+ -------+| ?<15 (or dialysis) ? ?| ?Stage five ? | ? Stage five ?+ ---+ ---+ -------+ *Each stage assumes the associated GFR level has been in effect for at least three months. ?Stages 1 to 5, with or without kidney disease, indicate chronic kidney disease. Notes: Determination of stages one and two (with eGFR >59mL/min/1.73 m2) requires estimation of kidney damage for at least three months as defined by structural or functional abnormalities of the kidney, manifested by either:Pathological abnormalities or Markers of kidney damage (including abnormalities in the composition of the blood or urine or abnormalities in imaging tests). Lab Interpretation Abnormal (test code = 42909-6) [facility] (NA, K, CL, CO2, GLUCOSE, BUN, CREATININE, CA)2022-01-13 16:34:59 Test Item Value Reference Range Interpretation Comments NA (test code = 139 mmol/L 135-145 0290051002) K (test code = 4.2 mmol/L 3.5-5.0 8413664712) CL (test code = 105 mmol/L 98-108 0757541410) CO2 TOTAL (test code = 22 mmol/L 23-31 L 2057907434) AGAP (test code = 2-16 0581227663) BUN (test code = 13 mg/dL 7-23 3387981452) GLUCOSE (test code = 97 mg/dL 70-110 5612142835) CREATININE (test code = 1.05 mg/dL 0.60-1.25 3768019642) CALCIUM (test code = 9.0 mg/dL 8.6-10.6 4965089045) eGFR (test code = mL/min/1.73m2 4318176372) YAMIL (test code = YAMIL) Association of Glomerular Filtration Rate (GFR) and Staging of Kidney Disease* + --+ --+ ------+| GFR (mL/min/1.73 m2) ?| With Kidney Damage ?| ?Without Kidney Damage+ --------+ --------+ +| ?>90 ?| ?Stage one ?| ? Normal ?+ ---+ ---+ -------+| ?60-89 ?| ?Stage two ?| ? Decreased GFR ? + --+ --+ ------+| ?30-59 ?| ?Stage three ?| ? Stage three ? + --+ --+ ------+| ?15-29 ?| ?Stage four ? | ? Stage four ?+ ---+ ---+ -------+| ?<15 (or dialysis) ? ?| ?Stage five ? | ? Stage five ?+ ---+ ---+ -------+ *Each stage assumes the associated GFR level has been in effect for at least three months. ?Stages 1 to 5, with or without kidney disease, indicate chronic kidney disease. Notes: Determination of stages one and two (with eGFR >59mL/min/1.73 m2) requires estimation of kidney damage for at least three months as defined by structural or functional abnormalities of the kidney, manifested by either:Pathological abnormalities or Markers of kidney damage (including abnormalities in the composition of the blood or urine or abnormalities in imaging tests). Lab Interpretation Abnormal (test code = 87043-1) [facility] METABOLIC PANEL (NA, K, CL, CO2, GLUCOSE, BUN, CREATININE, CA)2021-12-29 14:43:10 Test Item Value Reference Range Interpretation Comments NA (test code = 138 mmol/L 135-145 1408477050) K (test code = 4.1 mmol/L 3.5-5.0 3644280429) CL (test code = 105 mmol/L 98-108 5722567445) CO2 TOTAL (test code 25 mmol/L 23-31 = 4802877091) AGAP (test code = 2-16 5486367315) BUN (test code = 12 mg/dL 7-23 3537026728) GLUCOSE (test code = 91 mg/dL 70-110 7180247691) CREATININE (test code 1.16 mg/dL 0.60-1.25 = 7983514507) CALCIUM (test code = 9.3 mg/dL 8.6-10.6 1149504851) eGFR (test code = mL/min/1.73m2 1135739952) YAMIL (test code = YAMIL) Association of Glomerular Filtration Rate (GFR) and Staging of Kidney Disease* + + +- +| GFR (mL/min/1.73 m2) ?| With Kidney Damage ?| ?Without Kidney Damage+ ------+ ----+ ------+| ?>90 ?| ?Stage one ?| ? Normal ?+ -+ + -+| ?60-89 ?| ?Stage two ?| ? Decreased GFR ? + + +- +| ?30-59 ?| ?Stage three ?| ? Stage three ? + + +- +| ?15-29 ?| ?Stage four ? | ? Stage four ?+ -+ + -+| ?<15 (or dialysis) ? ?| ?Stage five ? | ? Stage five ?+ -+ + -+ *Each stage assumes the associated GFR level has been in effect for at least three months. ?Stages 1 to 5, with or without kidney disease, indicate chronic kidney disease. Notes: Determination of stages one and two (with eGFR >59mL/min/1.73 m2) requires estimation of kidney damage for at least three months as defined by structural or functional abnormalities of the kidney, manifested by either:Pathological abnormalities or Markers of kidney damage (including abnormalities in the composition of the blood or urine or abnormalities in imaging tests). [facility] METABOLIC PANEL (NA, K, CL, CO2, GLUCOSE, BUN, CREATININE, CA)2021-12-29 14:43:10 Test Item Value Reference Range Interpretation Comments NA (test code = 138 mmol/L 135-145 7632430416) K (test code = 4.1 mmol/L 3.5-5.0 9741332360) CL (test code = 105 mmol/L 98-108 3694290293) CO2 TOTAL (test code 25 mmol/L 23-31 = 9608459806) AGAP (test code = 2-16 7117189820) BUN (test code = 12 mg/dL 7-23 8581951310) GLUCOSE (test code = 91 mg/dL 70-110 5099655493) CREATININE (test code 1.16 mg/dL 0.60-1.25 = 1308214555) CALCIUM (test code = 9.3 mg/dL 8.6-10.6 1819933763) eGFR (test code = mL/min/1.73m2 8420503979) YAMIL (test code = YAMIL) Association of Glomerular Filtration Rate (GFR) and Staging of Kidney Disease* + + +- +| GFR (mL/min/1.73 m2) ?| With Kidney Damage ?| ?Without Kidney Damage+ ------+ ----+ ------+| ?>90 ?| ?Stage one ?| ? Normal ?+ -+ + -+| ?60-89 ?| ?Stage two ?| ? Decreased GFR ? + + +- +| ?30-59 ?| ?Stage three ?| ? Stage three ? + + +- +| ?15-29 ?| ?Stage four ? | ? Stage four ?+ -+ + -+| ?<15 (or dialysis) ? ?| ?Stage five ? | ? Stage five ?+ -+ + -+ *Each stage assumes the associated GFR level has been in effect for at least three months. ?Stages 1 to 5, with or without kidney disease, indicate chronic kidney disease. Notes: Determination of stages one and two (with eGFR >59mL/min/1.73 m2) requires estimation of kidney damage for at least three months as defined by structural or functional abnormalities of the kidney, manifested by either:Pathological abnormalities or Markers of kidney damage (including abnormalities in the composition of the blood or urine or abnormalities in imaging tests). [facility] Time / [id number] 14:31:29 Test Item Value Reference Range Interpretation Comments PROTIME PATIENT (test See_Comment [Auto mated message] code = 5964-2) The system [employer] generated this result transmitted ref erence range: 10.1 - 1 2.6 Seconds. The re ference range was not u sed to interpret this result as normal/abnor mal. INR (test code = 6301-6) Nor mal INR <1.1; Warfarin Therap eutic range 2.0 to 3. 0 or 2.5 to 3.5, dep ending upon the indica tions. Lab Interpretation (test Normal code = 61822-8) [facility] Time / [id number] 14:31:29 Test Item Value Reference Range Interpretation Comments PROTIME PATIENT (test See_Comment [Auto mated message] code = 5964-2) The system ich generated this result transmitted ref erence range: 10.1 - 1 2.6 Seconds. The re ference range was not u sed to interpret this result as normal/abnor mal. INR (test code = 6301-6) Nor mal INR <1.1; Warfarin Therap eutic range 2.0 to 3. 0 or 2.5 to 3.5, dep ending upon the indica tions. Lab Interpretation (test Normal code = 24775-7) [facility] WITHOUT [id number] 14:24:49 Test Item Value Reference Range Interpretation Comments WBC (test code = See_Comment [Automated message] The 6690-2) system which [employer] nerated this result tra nsmitted reference range : 4.20 - 10.70 10*3/?L. The reference range was not used to interpr et this result as normal/abnormal . RBC (test code = See_Comment [Automated message] The 789-8) system which [employer] nerated this result tra nsmitted reference range : 4.26 - 5.52 10*6/?L. T he reference range was not used to interpr et this result as normal/abnormal . HGB (test code = 15.8 g/dL 12.2-16.4 718-7) HCT (test code = 45.7 % 38.4-49.3 4544-3) MCH (test code = 31.7 pg 26.1-32.7 785-6) MCV (test code = 91.6 fL 81.7-95.6 787-2) MCHC (test code = 34.6 g/dL 31.2-35.0 786-4) PLT (test code = See_Comment [Automated message] The 777-3) system which ge nerated this result tra nsmitted reference range : 150 - 328 10*3/?L. Th e reference range was not used to interpr et this result as normal/abnormal . MPV (test code = 10.4 fL 9.8-13.0 60674-1) RDW-CV (test code = 12.9 % 12.1-15.4 788-0) RDW-SD (test code = 43.0 fL 38.5-51.6 20534-1) NRBC x10^3 (test See_Comment [Automated message] The code = 0010699159) system [facility] generated this result tra nsmitted reference range : 10*3/?L. The reference r ruben was not used to int erpret this result as normal/abnormal . NRBC/100 WBC (test See_Comment [Automat ed message] The code = 4118104769) system [facility] generated this result tra nsmitted reference range : 0.0 - 10.0 /100 WBCs. The reference range was not used to interpr et this result as normal/abnormal . IPF % (test code = 1063516846) [facility] WITHOUT [id number] 14:24:49 Test Item Value Reference Range Interpretation Comments WBC (test code = See_Comment [Automated message] The 6690-2) system which ge nerated this result tra nsmitted reference range : 4.20 - 10.70 10*3/?L. The reference range was not used to interpr et this result as normal/abnormal . RBC (test code = See_Comment [Automated message] The 789-8) system which ge nerated this result tra nsmitted reference range : 4.26 - 5.52 10*6/?L. T he reference range was not used to interpr et this result as normal/abnormal . HGB (test code = 15.8 g/dL 12.2-16.4 718-7) HCT (test code = 45.7 % 38.4-49.3 4544-3) MCH (test code = 31.7 pg 26.1-32.7 785-6) MCV (test code = 91.6 fL 81.7-95.6 787-2) MCHC (test code = 34.6 g/dL 31.2-35.0 786-4) PLT (test code = See_Comment [Automated message] The 777-3) system which ge nerated this result tra nsmitted reference range : 150 - 328 10*3/?L. Th e reference range was not used to interpr et this result as normal/abnormal . MPV (test code = 10.4 fL 9.8-13.0 96972-5) RDW-CV (test code = 12.9 % 12.1-15.4 788-0) RDW-SD (test code = 43.0 fL 38.5-51.6 84509-7) NRBC x10^3 (test See_Comment [Automated message] The code = 5154452215) system [facility] generated this result tra nsmitted reference range : 10*3/?L. The reference r ruben was not used to int erpret this result as normal/abnormal . NRBC/100 WBC (test See_Comment [Automat ed message] The code = 2839394969) system [facility] generated this result tra nsmitted reference range : 0.0 - 10.0 /100 WBCs. The reference range was not used to interpr et this result as normal/abnormal . IPF % (test code = 0733925899) [facility] GLUCOSE (AUTOMATED)2021-11-01 21:23:49 Test Item Value Reference Range Interpretation Comments POCT GLU (test code = 6104709933) 93 mg/dL 70-110 Lab Interpretation (test code = Normal 46366-7) [facility] Notes Date/Time Note Provider Source 2022-06-10 14:27:00-00:00 [facility] ([facility]) Hospitalist Discharge Summary REPORT#:[id number] REPORT STATUS: Signed DATE:06/10/22 TIME: 1426 PATIENT: KAYLA HO UNIT #: [id number] ROOM/BED: [address] : 47 AGE: 76 SEX: M ATTEND: Diogo Reynolds MD ADM AUTHOR: Evon Dorado * ALL edits or amendments must be made on the [employer]/computer document * General Information Discharge date: 05/26/22 Admission diagnosis: 1. Sepsis, present on admission secondary to lef t lower lobe community-acquired pneumonia 2. Hypertension 3. Coronary artery disease 4. Hypothyroidism 5. Benign prostate hyperplasia 6. Dementia Discharge diagnosis: 1. Sepsis, present on admission secondary to lef t lower lobe community-acquired pneumonia 2. Hypertension 3. Coronary artery disease 4. Hypothyroidism 5. Benign prostate hyperplasia 6. Dementia 7. Person under investigation for COVID-19 8. Abdominal distention, mild secondary to gas Hospital course: Mr. Ho is a 76-year-old man with history of de mentia, hypothyroidism, hyperlipidemia, benign prost atic hypertrophy, hypertension with coronary artery disease admitted from [facility] with reports of shortness of breath and cough. He was admitted with the following: #Acute kidney failure #Metabolic acidosis -Crea 1.1 on 05/30, now 06/03 Crea 5.9, BUN 75 -Leyva catheter, strict I and O -US renal: Unremarkable -Nephrology consult: Dr. Canela -UA: Negative #Urinary retention #Hematuria -hx. of BPH, currently on flomax, proscar -leyva in situ -urology consult: Dr. Mcguire #Sepsis, present on admission secondary to left lower lobe community-acquired pneumonia ---SIRS (T 101.0 F, HR 92). Influenza negative. SARS negative. ----CTA chest: Marked motion artifact, unremarka ble aorta. Lungs clear of infiltrates, effusion or congestion. No patholog ic adenopathy. -Received IV fluid hydration [NS x 2 L] -Blood culture x 2: No growth x 48 hours/contami nated -Rocephin 1 g IVPB Q24H. Cheryl thromycin 500 mg IVPB Q24H- finished course, monitor off abx -Duo nebs RT Q4H, Pulmicort 4 ml RT Q12H -Solumedrol 125 mg IVP x 1 -PRN: Robitussin -05/28: Initial BC with suspected contamination. R epeat collection. -BC x2, repeat: No growth #Hypertension -Coreg 12.5 mg PO BID -Amlodipine -Hydralazine 10 mg IVP PRN SBP > 160 #Coronary artery disease -Coreg 12.5 mg PO BID. Plavi x 75 mg PO QD. Aspirin 81 mg PO QD. Atorvastatin 80 mg PO QD #Hypothyroidism -Levothyroxine 25 mcg PO QD #Benign prostatic hypertrophy -Tamsulosin 0.4 mg PO QD. Proscar 5 mg PO QD -Strict intake and output #Dementia -Behavioral health consult: Dr. Stubbs -Celexa 40 mg PO QD. Aricept 10 mg PO QD. Trazod one 25 mg PO QHS -As needed: Zyprexa 2.5 mg PO Q6H. appreciate ps [facility] recs -Fall precautions #PUI for COVID-19 -Informed by staff that patient's spouse is pres ent COVID-positive. -PCR: Negative -Decadron 6 mg IVP QD-Dc'd. Guaifenesin 600 mg p .o. every 12 hours prn. Azithromycin/Rocephin- completed -Isolation precautions- DC'd #Abdominal distention, mild secondary to gas -Simethicone 80 mg PO QD -Monitor -05/31, KUB: Negative Full code by default NOK: Spouse, Giovanni oH, PPX: Lovenox- hold for now due to hematuria Disposition: No longer means IP psych placement. detention placement obtained. Consultants: psychiatry Med Rec Med Rec Discharge meds: Continue taking these medications: ATORVASTATIN (LIPITOR) 80 MG TAB 80 MILLIGRAM ORAL DAILY. CARVEDILOL (COREG) 12.5 MG TAB 12.5 MILLIGRAM ORAL TWICE DAILY. CLOPIDOGREL (PLAVIX) 75 MG TAB 75 MILLIGRAM ORAL DAILY. DONEPEZIL (ARICEPT) 10 MG TAB 10 MILLIGRAM ORAL DAILY. ESCITALOPRAM (LEXAPRO) 20 MG TAB 20 MILLIGRAM ORAL DAILY. FENOFIBRATE (FENOFIBRATE) 145 MG TAB 145 MILLIGRAM ORAL DAILY. FINASTERIDE (PROSCAR) 5 MG TAB 5 MILLIGRAM ORAL DAILY. OMEPRAZOLE ER (OMEPRAZOLE ER) 20 MG CAP.DR 20 MILLIGRAM ORAL DAILY. TAMSULOSIN ER (FLOMAX) 0.4 MG CAP.SR.24H 0.4 MILLIGRAM ORAL DAILY. ASPIRIN EC (ECOTRIN) 81 MG TAB.EC 81 MILLIGRAM ORAL DAILY. MAGNESIUM OXIDE (MAGNESIUM OXIDE) 500 MG TAB 500 MILLIGRAM ORAL DAILY. MULTIVITAMIN (MULTIPLE VITAMIN) 1 TAB TAB 1 TABLET ORAL DAILY. LEVOTHYROXINE (SYNTHROID) 25 MCG TAB 25 MICROGRAM ORAL DAILY AT 0600. Comments: TAKE 1 TABLET BY MOUTH IN THE MORNING; #90 - SI G Obtained From [employer] Start taking the following new medications: IPRATROPIUM/ALBUTEROL (DUONEB 0.5 MG-3/3 ML) 0.5 MG-3 MG (2.5 MG BASE)/3 ML NEB 3 MILLILITERS NEB RT - EVERY 6 HOURS NEEDED . as needed for SHORTNESS OF BREATH/CONGESTION Qty = 30 No Refills traZODone (DESYREL) 50 MG TAB 25 MILLIGRAM ORAL DAILY. Qty = 30 No Refills QUEtiapine (SEROquel) 25 MG TAB 25 MILLIGRAM ORAL EVERY 6 HOURS. as needed for Agitation/Anxiety/Psychosis Qty = 60 No Refills Objective VS/I O Last Documented: Result Date Time Pulse Ox 96 06/10 1050 B/P 135/75 06/10 1050 B/P Mean 95.0 06/10 1050 Temp 97.7 06/10 1050 Pulse 72 06/10 1050 Resp 17 06/10 1050 O2 Delivery Room air 06/10 0840 FiO2 21 06/10 0142 O2 Flow Rate 0 06/05 0723 24 hour I O ending at 0700: 06/10 0700 06/09 1900 Intake Total 400 Output Total Balance 400 Intake, Oral 400 General appearance: alert, awake Head/Eyes: atraumatic, clear cornea, EOMI, normo cephalic, PERRL ENT: moist mucosal membranes, normal dentition, normal nose Neck: non-tender, supple/no meningismus, no JVD Cardiovascular: normal heart sounds, regular rat e rhythm, no murmur Respiratory: aerating well, clear to auscultatio n, symmetric expansion, no distress Abdomen: non-tender, normal bowel sounds, soft, no distention Genitourinary: urinary catheter Extremities: decreased range of motion, normal capillary refill, no clubbing, no cyanosis, no edema Musculoskeletal: decreased ROM, no CVA tendernes s, no muscle spasm 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: disoriented, alert, face symmetrical, not answering questions Skin: dry, intact, normal color, normal temperat ure Psychiatry: unable to evaluate Results Findings/Data: Laboratory Tests: 06/10 1050 Serology SARS-CoV-2 Ag (Rapid) (NEGATIVE) NEGATIVE Discharge Instructions PCP PCP follow-up: PCP: No Primary or Family Physician Discharge to: Inpatient Psych Facility Additional Discharge Routines: PCP Follow-Up Diet: Resume Home Diet/Feeds, Cardiac Activity: As Tolerated Discharge management: greater than 30 mins Follow-up Appointments PCP follow-up: PCP: No Primary or Family Physician PCP follow up timeframe: In 2 days Quality: Discharge Advanced Care Plan 65 or Older Discussed with: surrogate decis. maker (full cod e) Electronically Signed by Evon Dorado on 0 06/10/22 at 1429 at 1854 RPT #:[id number] END OF REPORT 2022-06-09 09:58:00-00:00 [facility] ([facility] Hospitalist Progress Note REPORT#:[id number] REPORT STATUS: Signed DATE:06/09/22 TIME: 957 PATIENT: KAYLA HO UNIT #: [id number] ROOM/BED: [address] : 47 AGE: 76 SEX: M ATTEND: Cintia Reynolds MD ADM AUTHOR: Evon Dorado * ALL edits or amendments must be made on the [employer]/computer document * Subjective Chief complaint: Confusion HPI: Mr. Ho is a 76-year-old man with history of de mentia, hypothyroidism, hyperlipidemia, benign prost atic hypertrophy, hypertension with coronary artery disease admitted from [facility] with reports of shortness of breath and cough. Review of Systems All systems rev neg: except as noted Objective General VS/I O: Vital Signs: Date Time Temp Pulse Resp B/P B/P Pulse O2 O2 F low FiO2 Mean Ox Delivery Rate 06/09 0937 97 Room air 06/09 0736 97.7 65 18 135/75 95.3 97 Room air 06/09 0509 97.7 66 22 152/64 93.6 92 Room air 06/09 0326 96 Room air 06/08 2320 98.1 51 20 154/75 101.3 96 Room air 06/08 2004 98.4 59 20 119/72 87.7 96 Room air 06/08 1541 97.7 56 16 107/67 80.6 95 06/08 1138 97.7 67 18 94/58 69.9 96 Room air 24 hour I O ending at 0700: 06/09 0700 06/08 1900 Intake Total 1540.00 Output Total 1100 1000 Balance -1100 540.00 Intake, IV 900.00 Intake, Oral 640 Number 1 Bowel Movements Output, Urine 1100 1000 PATIENT WEIGHT: Weight (lb): Weight (oz): Weight (kg): 120.000 Medications: Active Meds + DC'd Last 24 Hrs Trazodone HCl (DESYREL) 25 MG DAILY PO Albuterol/Ipratropium (DUONEB) 3 ML RTQ4H INH Amlodipine Besylate (NORVASC 5MG TAB) 5 MG DAILY PO Enoxaparin Sodium (LOVENOX 30MG SYRINGE) 30 MG 1 700 SUBQ Dextrose/Sodium Chloride (DEXTROSE 5%-NS) 1,000 ML .[id number] IV Trazodone HCl (DESYREL) 50 MG BEDTIME PO Quetiapine Fumarate (SEROquel 25MG TAB) 25 MG Q6 H PRN PRN PO Simethicone (SIMETHICONE) 80 MG DAILY PO Guaifenesin (HUMIBID L.A.) 600 MG Q12HR PRN PO Budesonide (PULMICORT RESPULES 0.5MG/2ML) 4 ML R TQ12H NEB (CKD) Albuterol Sulfate (ALBUTEROL SULFATE) 2.5 MG RTQ 6H PRN PRN INH Benzonatate (BENZONATATE) 100 MG Q4H PRN PRN PO Hydralazine HCl (APRESOLINE) 10 MG Q2H PRN PRN I V Aspirin (ECOTRIN) 81 MG DAILY PO Atorvastatin Calcium (LIPITOR 40MG TAB) 80 MG DA HEIKE PO Carvedilol (COREG 12.5MG TAB) 12.5 MG BID PO Clopidogrel Bisulfate (PLAVIX 75MG TAB) 75 MG DA HEIKE PO Donepezil HCl (ARICEPT 10MG TAB) 10 MG DAILY PO Finasteride (PROSCAR 5MG TAB) 5 MG DAILY PO Multivitamins Therapeutic (THERAGRAN) 1 UDTAB DA HEIKE PO Tamsulosin HCl (FLOMAX 0.4MG CAPSULE) 0.4 MG CHETAN LY PO Levothyroxine Sodium (SYNTHROID) 25 MCG DAILY 0 600 PO Pantoprazole Sodium (PROTONIX) 20 MG DAILY@0600 PO Acetaminophen (TYLENOL EXTRA STRENGTH) 500 MG Q6 H PRN PRN PO Calcium Carbonate (TUMS 500MG) 1,000 MG Q6H PRN PRN PO Docusate Sodium (COLACE 100 MG CAPSULE) 100 MG B ID PRN PRN PO Melatonin (MELATONIN) 3 MG BEDTIME PRN PRN PO Physical Exam General appearance: confused, alert, awake Head/Eyes: atraumatic, clear cornea, EOMI, normo cephalic, PERRL ENT: moist mucosal membranes, normal dentition, normal nose Neck: non-tender, supple/no meningismus, no JVD Cardiovascular: normal heart sounds, regular rat e rhythm, no murmur Respiratory: aerating well, clear to auscultatio n, symmetric expansion, no distress Abdomen: non-tender, normal bowel sounds, soft, no distention Genitourinary: urinary catheter Extremities: decreased range of motion, normal capillary refill, no clubbing, no cyanosis, no edema Musculoskeletal: decreased ROM, no CVA tendernes s, no muscle spasm 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: disoriented, alert, face symmetrical, not answering questions Skin: dry, intact, normal color, normal temperat ure Psychiatry: unable to evaluate Diagnosis, Assessment Plan Consultants: psychiatry Plan discussed with: collaborating MD, consultan ts Time spent: Time spent on patient care (minutes): 35 Free Text DxA P Notes Free text DxA P notes: 76-year-old man with: #Acute kidney failure #Metabolic acidosis -Crea 1.1 on 05/30, now 06/03 Crea 5.9, BUN 75 -Leyva catheter, strict I and O -US renal: Unremarkable -Nephrology consult: Dr. Canela -UA: Negative #Urinary retention #Hematuria -hx. of BPH, currently on flomax, proscar -leyva in situ -urology consult: Dr. Mcguire #Sepsis, present on admission secondary to left lower lobe community-acquired pneumonia ---SIRS (T 101.0 F, HR 92). Influenza negative. SARS negative. ----CTA chest: Marked motion artifact, unremarka ble aorta. Lungs clear of infiltrates, effusion or congestion. No patholog ic adenopathy. -Received IV fluid hydration [NS x 2 L] -Blood culture x 2: No growth x 48 hours/contami nated -Rocephin 1 g IVPB Q24H. Cheryl thromycin 500 mg IVPB Q24H- finished course, monitor off abx -Duo nebs RT Q4H, Pulmicort 4 ml RT Q12H -Solumedrol 125 mg IVP x 1 -PRN: Robitussin -05/28: Initial BC with suspected contamination. R epeat collection. -BC x2, repeat: No growth #Hypertension -Coreg 12.5 mg PO BID -Amlodipine -Hydralazine 10 mg IVP PRN SBP > 160 #Coronary artery disease -Coreg 12.5 mg PO BID. Plavi x 75 mg PO QD. Aspirin 81 mg PO QD. Atorvastatin 80 mg PO QD #Hypothyroidism -Levothyroxine 25 mcg PO QD #Benign prostatic hypertrophy -Tamsulosin 0.4 mg PO QD. Proscar 5 mg PO QD -Strict intake and output #Dementia -Behavioral health consult: Dr. Stubbs -Celexa 40 mg PO QD. Aricept 10 mg PO QD. Trazod one 25 mg PO QHS -As needed: Zyprexa 2.5 mg PO Q6H. appreciate ps [facility] recs -Fall precautions #PUI for COVID-19 -Informed by staff that patient's spouse is pres ent COVID-positive. -PCR: Negative -Decadron 6 mg IVP QD-Dc'd. Guaifenesin 600 mg p .o. every 12 hours prn. Azithromycin/Rocephin- completed -Isolation precautions- DC'd #Abdominal distention, mild secondary to gas -Simethicone 80 mg PO QD -Monitor -05/31, KUB: Negative Full code by default NOK: Spouse, Giovanni Ho, PPX: Lovenox- hold for now due to hematuria Disposition: Catheter intact, clear urine. Urolo gy following. No longer meets IP psych placement. CM for placement. Quality: Gen Med Crit Care VTE Prophylaxis VTE prophylaxis initiated: yes (mechanical comp device) Current Medications Current medication review: I attest that the foregoing medication list in t he medical record is true, accurate, and complete to the best of my knowled ge. Advanced Care Plan 65 or Older Discussed with: surrogate decis. maker (full cod e) Electronically Signed by Evon Dorado on 0 06/09/22 at 1001 at 1113 RPT #:[id number] END OF REPORT 2022-06-08 13:52:00-00:00 [facility] ([facility]) Hospitalist Progress Note REPORT#:[id number] REPORT STATUS: Signed DATE:06/08/22 TIME: 1352 PATIENT: KAYLA HO UNIT #: [id number] ROOM/BED: [address] : 47 AGE: 76 SEX: M ATTEND: Diogo Reynolds MD ADM AUTHOR: Evon Dorado * ALL edits or amendments must be made on the [employer]/computer document * Subjective Chief complaint: confused somnolent leyva HPI: Mr. Ho is a 76-year-old man with history of de mentia, hypothyroidism, hyperlipidemia, benign prost atic hypertrophy, hypertension with coronary artery disease admitted from [facility] with reports of shortness of breath and cough. Review of Systems Unable to obtain due to: Related to impaired cognition Objective General VS/I O: Vital Signs: Date Time Temp Pulse Resp B/P B/P Pulse O2 O2 F low FiO2 Mean Ox Delivery Rate 06/08 1138 97.7 67 18 94/58 69.9 96 Room air 06/08 0841 95 Room air 06/08 0745 97.9 59 18 123/70 87.4 94 Room air 06/08 0345 98.1 61 18 107/62 76.6 91 06/08 0022 95 Room air 06/07 2316 98.1 71 17 120/76 90.3 94 06/07 2020 95 Room air 06/07 1930 97.9 59 18 137/62 87.1 96 06/07 1546 98.1 66 17 125/71 88.9 96 24 hour I O ending at 0700: 04/12 0700 04/ 1900 Intake Total 400 Output Total 1350 600 Balance -1350 -200 Intake, Oral 400 Output, Urine 1350 600 PATIENT WEIGHT: Weight (lb): Weight (oz): Weight (kg): 120.000 Medications: Active Meds + DC'd Last 24 Hrs Trazodone HCl (DESYREL) 25 MG DAILY PO Albuterol/Ipratropium (DUONEB) 3 ML RTQ4H INH Amlodipine Besylate (NORVASC 5MG TAB) 5 MG DAILY PO Enoxaparin Sodium (LOVENOX 30MG SYRINGE) 30 MG 1 700 SUBQ Dextrose/Sodium Chloride (DEXTROSE 5%-NS) 1,000 ML .[id number] IV Trazodone HCl (DESYREL) 50 MG BEDTIME PO Trazodone HCl (DESYREL) 25 MG BID PO (DC) Quetiapine Fumarate (SEROquel 25MG TAB) 25 MG Q6 H PRN PRN PO Simethicone (SIMETHICONE) 80 MG DAILY PO Guaifenesin (HUMIBID L.A.) 600 MG Q12HR PRN PO Budesonide (PULMICORT RESPULES 0.5MG/2ML) 4 ML R TQ12H NEB (CKD) Albuterol Sulfate (ALBUTEROL SULFATE) 2.5 MG RTQ 6H PRN PRN INH Benzonatate (BENZONATATE) 100 MG Q4H PRN PRN PO Hydralazine HCl (APRESOLINE) 10 MG Q2H PRN PRN I V Aspirin (ECOTRIN) 81 MG DAILY PO Atorvastatin Calcium (LIPITOR 40MG TAB) 80 MG DA HEIKE PO Carvedilol (COREG 12.5MG TAB) 12.5 MG BID PO Clopidogrel Bisulfate (PLAVIX 75MG TAB) 75 MG DA HEIKE PO Donepezil HCl (ARICEPT 10MG TAB) 10 MG DAILY PO Finasteride (PROSCAR 5MG TAB) 5 MG DAILY PO Multivitamins Therapeutic (THERAGRAN) 1 UDTAB DA HEIKE PO Tamsulosin HCl (FLOMAX 0.4MG CAPSULE) 0.4 MG CHETAN LY PO Levothyroxine Sodium (SYNTHROID) 25 MCG DAILY 06 00 PO Pantoprazole Sodium (PROTONIX) 20 MG DAILY@0600 PO Acetaminophen (TYLENOL EXTRA STRENGTH) 500 MG Q6 H PRN PRN PO Calcium Carbonate (TUMS 500MG) 1,000 MG Q6H PRN PRN PO Docusate Sodium (COLACE 100 MG CAPSULE) 100 MG B ID PRN PRN PO Melatonin (MELATONIN) 3 MG BEDTIME PRN PRN PO Physical Exam General appearance: confused, alert, awake Head/Eyes: atraumatic, clear cornea, EOMI, normo cephalic, PERRL ENT: moist mucosal membranes, normal dentition, normal nose Neck: non-tender, supple/no meningismus, no JVD Cardiovascular: normal heart sounds, regular rat e rhythm, no murmur Respiratory: aerating well, clear to auscultatio n, symmetric expansion, no distress Abdomen: non-tender, normal bowel sounds, soft, no distention Genitourinary: urinary catheter Extremities: decreased range of motion, normal capillary refill, no clubbing, no cyanosis, no edema Musculoskeletal: decreased ROM, no CVA tendernes s, no muscle spasm 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: disoriented, alert, face symmetrical, not answering questions Skin: dry, intact, normal color, normal temperat ure Psychiatry: unable to evaluate Diagnosis, Assessment Plan Consultants: psychiatry Plan discussed with: collaborating MD, consultan ts Time spent: Time spent on patient care (minutes): 35 Free Text DxA P Notes Free text DxA P notes: 76-year-old man with: #Acute kidney failure #Metabolic acidosis -Crea 1.1 on 05/30, now 4/7 Crea 5.9, BUN 75 -Leyva catheter, strict I and O -US renal: Unremarkable -Nephrology consult: Dr. Canela -UA: Negative #Urinary retention #Hematuria -hx. of BPH, currently on flomax, proscar -leyva in situ -urology consult: Dr. Mcguire #Sepsis, present on admission secondary to left lower lobe community-acquired pneumonia ---SIRS (T 101.0 F, HR 92). Influenza negative. SARS negative. ----CTA chest: Marked motion artifact, unremarka ble aorta. Lungs clear of infiltrates, effusion or congestion. No patholog ic adenopathy. -Received IV fluid hydration [NS x 2 L] -Blood culture x 2: No growth x 48 hours/contami nated -Rocephin 1 g IVPB Q24H. Cheryl thromycin 500 mg IVPB Q24H- finished course, monitor off abx -Duo nebs RT Q4H, Pulmicort 4 ml RT Q12H -Solumedrol 125 mg IVP x 1 -PRN: Robitussin -05/28: Initial BC with suspected contamination. R epeat collection. -BC x2, repeat: No growth #Hypertension -Coreg 12.5 mg PO BID -Amlodipine -Hydralazine 10 mg IVP PRN SBP > 160 #Coronary artery disease -Coreg 12.5 mg PO BID. Plavi x 75 mg PO QD. Aspirin 81 mg PO QD. Atorvastatin 80 mg PO QD #Hypothyroidism -Levothyroxine 25 mcg PO QD #Benign prostatic hypertrophy -Tamsulosin 0.4 mg PO QD. Proscar 5 mg PO QD -Strict intake and output #Dementia -Behavioral health consult: Dr. Stubbs -Celexa 40 mg PO QD. Aricept 10 mg PO QD. Trazod one 25 mg PO QHS -As needed: Zyprexa 2.5 mg PO Q6H. appreciate ps [facility] recs -Fall precautions #PUI for COVID-19 -Informed by staff that patient's spouse is pres ent COVID-positive. -PCR: Negative -Decadron 6 mg IVP QD-Dc'd. Guaifenesin 600 mg p .o. every 12 hours prn. Azithromycin/Rocephin- completed -Isolation precautions- DC'd #Abdominal distention, mild secondary to gas -Simethicone 80 mg PO QD -Monitor -05/31, KUB: Negative Full code by default NOK: Spouse, Giovanni Ho, PPX: Lovenox- hold for now due to hematuria Disposition: Fully catheter intact, martha r urine. Holding off on voiding trials today. No longer meets IP psych placement. CM; t herefore, currently UA clear. Per urology attempted voiding trials. No longer meets criteria for IP psych. CM for placement. Quality: Gen Med Crit Care VTE Prophylaxis VTE prophylaxis initiated: yes (mechanical comp device) Current Medications Current medication review: I attest that the foregoing medication list in t he medical record is true, accurate, and complete to the best of my knowled ge. Advanced Care Plan 65 or Older Discussed with: surrogate decis. maker (full cod e) Electronically Signed by Evon Dorado on 0 06/08/22 at 1355 at 1113 RPT #:[id number] END OF REPORT 2022-06-08 09:15:00-00:00 [facility]) Urology Progress Note REPORT#:[id number] REPORT STATUS: Signed DATE:06/08/22 TIME: 914 PATIENT: KAYLA HO UNIT #: [id number] ROOM/BED: [address] : 47 AGE: 76 SEX: M ATTEND: Diogo Reynolds MD ADM AUTHOR: Fazal Mcguire MD * ALL edits or amendments must be made on the el [employer]ak document * Subjective Comments: He is still somewhat out of it this morn ing. I will hold off on voiding trial. at 0915 RPT #:[id number] END OF REPORT 2022-06-07 15:58:00-00:00 [facility] ([facility]) Hospitalist Progress Note REPORT#:[id number] REPORT STATUS: Signed DATE:06/07/22 TIME: 1557 PATIENT: KAYLA HO UNIT #: [id number] ROOM/BED: [address] : 47 AGE: 76 SEX: M ATTEND: Diogo Reynolds MD ADM AUTHOR: Evon Dorado * ALL edits or amendments must be made on the el ectronic/computer document * Subjective Chief complaint: confused somnolent leyva HPI: Mr. Ho is a 76-year-old man with history of de mentia, hypothyroidism, hyperlipidemia, benign prost atic hypertrophy, hypertension with coronary artery disease admitted from [facility] with reports of shortness of breath and cough. Review of Systems Unable to obtain due to: r/t impaired cognition Objective General VS/I O: Vital Signs: Date Time Temp Pulse Resp B/P B/P Pulse O2 O2 F low FiO2 Mean Ox Delivery Rate 06/07 1546 98.1 66 17 125/71 88.9 96 06/07 1123 97.5 81 20 126/75 92.3 95 06/07 0808 95 Room air 06/07 0757 97.9 67 19 138/75 96.4 92 06/07 0343 98.2 70 17 145/72 96.8 95 06/06 2327 98.1 60 17 163/74 103.5 97 06/06 2051 98 Room air 21 06/06 1956 97.5 60 17 160/78 105.1 96 06/06 1624 98.4 63 18 121/64 83.0 96 Room air 24 hour I O ending at 0700: 06/07 0700 06/06 1900 Intake Total 2025.00 Output Total 3000 Balance -975.00 Intake, IV 1125.00 Intake, Oral 900 Number 1 Bowel Movements Output, Urine 3000 PATIENT WEIGHT: Weight (lb): Weight (oz): Weight (kg): 120.000 Medications: Active Meds + DC'd Last 24 Hrs Albuterol/Ipratropium (DUONEB) 3 ML RTQ4H INH Amlodipine Besylate (NORVASC 5MG TAB) 5 MG DAILY PO Enoxaparin Sodium (LOVENOX 30MG SYRINGE) 30 MG 1 700 SUBQ (r) Dextrose/Sodium Chloride (DEXTROSE 5%-NS) 1,000 ML .[id number] IV Trazodone HCl (DESYREL) 50 MG BEDTIME PO Trazodone HCl (DESYREL) 25 MG BID PO Quetiapine Fumarate (SEROquel 25MG TAB) 25 MG Q6 H PRN PRN PO Simethicone (SIMETHICONE) 80 MG DAILY PO Guaifenesin (HUMIBID L.A.) 600 MG Q12HR PRN PO Budesonide (PULMICORT RESPULES 0.5MG/2ML) 4 ML R TQ12H NEB (CKD) Albuterol Sulfate (ALBUTEROL SULFATE) 2.5 MG RTQ 6H PRN PRN INH Benzonatate (BENZONATATE) 100 MG Q4H PRN PRN PO Hydralazine HCl (APRESOLINE) 10 MG Q2H PRN PRN I V Aspirin (ECOTRIN) 81 MG DAILY PO Atorvastatin Calcium (LIPITOR 40MG TAB) 80 MG DA HEIKE PO Carvedilol (COREG 12.5MG TAB) 12.5 MG BID PO Clopidogrel Bisulfate (PLAVIX 75MG TAB) 75 MG DA HEIKE PO Donepezil HCl (ARICEPT 10MG TAB) 10 MG DAILY PO Finasteride (PROSCAR 5MG TAB) 5 MG DAILY PO Multivitamins Therapeutic (THERAGRAN) 1 UDTAB DA HEIKE PO Tamsulosin HCl (FLOMAX 0.4MG CAPSULE) 0.4 MG CHETAN LY PO Levothyroxine Sodium (SYNTHROID) 25 MCG DAILY 06 00 PO Pantoprazole Sodium (PROTONIX) 20 MG DAILY@0600 PO Acetaminophen (TYLENOL EXTRA STRENGTH) 500 MG Q6 H PRN PRN PO Calcium Carbonate (TUMS 500MG) 1,000 MG Q6H PRN PRN PO Docusate Sodium (COLACE 100 MG CAPSULE) 100 MG B ID PRN PRN PO Melatonin (MELATONIN) 3 MG BEDTIME PRN PRN PO Physical Exam General appearance: confused, alert, awake Head/Eyes: atraumatic, clear cornea, EOMI, normo cephalic, PERRL ENT: moist mucosal membranes, normal dentition, normal nose Neck: non-tender, supple/no meningismus, no JVD Cardiovascular: normal heart sounds, regular rat e rhythm, no murmur Respiratory: aerating well, clear to auscultatio n, symmetric expansion, no distress Abdomen: non-tender, normal bowel sounds, soft, no distention Genitourinary: urinary catheter Extremities: decreased range of motion, normal capillary refill, no clubbing, no cyanosis, no edema Musculoskeletal: decreased ROM, no CVA tendernes s, no muscle spasm 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: disoriented, alert, face symmetrical, not answering questions Skin: dry, intact, normal color, normal temperat ure Psychiatry: unable to evaluate Results Findings/Data: Laboratory Tests 06/07 0320 Chemistry Sodium (136 - 145 mmol/L) 139 Potassium (3.5 - 5.1 mmol/L) 3.3 L Chloride (98 - 107 mmol/L) 108.0 H Carbon Dioxide (21 - 32 mmol/L) 19.0 L Anion Gap (10 - 20) 15.3 BUN (7 - 18 mg/dL) 10 Creatinine (0.7 - 1.3 mg/dL) 0.80 Glomerular Filtr Rate (>=60 mL/min) > 60 BUN/Creatinine Ratio (10 - 20) 13.2 Glucose (74 - 106 mg/dL) 110 H Calcium (8.5 - 10.1 mg/dL) 8.1 L Laboratory Tests 06/07 0320 Hematology WBC (4.5 - 12.5 K/mm3) 7.6 RBC (4.0 - 5.8 mill/mm3) 4.31 Hgb (13.0 - 17.5 gram/dL) 13.4 Hct (42.0 - 52.0 %) 39.6 L MCV (80 - 98 fL) 91.9 MCH (27.0 - 33.0 picogram) 31.1 MCHC (33.0 - 36.0 gram/dL) 33.8 RDW (11.6 - 16.2 %) 12.2 RDW Std Deviation (37.0 - 51.0 fL) 41.7 Plt Count (150 - 450 K/mm3) 285 MPV (6.7 - 11.0 fL) 9.8 Neut % (Auto) (39.0 - 69.0 %) 74.0 H Lymph % (Auto) (25.0 - 55.0 %) 14.1 L [place] % (Auto) (0.0 - 10.0 %) 6.2 Eos % (Auto) (0.0 - 5.0 %) 4.5 Baso % (Auto) (0.0 - 1.0 %) 0.7 Neut # (Auto) (1.8 - 7.7 K/mm3) 5.60 Lymph # (Auto) (1.0 - 5.0 K/mm3) 1.07 [place] # (Auto) (0 - 0.8 K/mm3) 0.47 Eos # (Auto) (0.0 - 0.5 K/mm3) 0.34 Baso # (Auto) (0.0 - 0.2 K/mm3) 0.05 Nucleated RBC % (0 - 0 %) 0.0 Nucleated RBCs # (Man) (0.0 - 0.1 K/mm3) 0.00 Results: labs reviewed Diagnosis, Assessment Plan Consultants: psychiatry Plan discussed with: collaborating MD Time spent: Time spent on patient care (minutes): 35 Free Text DxA P Notes Free text DxA P notes: 76-year-old man with: #Acute kidney failure #Metabolic acidosis -Crea 1.1 on 05/30, now 06/03 Crea 5.9, BUN 75 -Leyva catheter, strict I and O -US renal: Unremarkable -Nephrology consult: Dr. Canela -UA: Negative #Urinary retention #Hematuria -hx. of BPH, currently on flomax, proscar -leyva in situ -urology consult: Dr. Mcguire #Sepsis, present on admission secondary to left lower lobe community-acquired pneumonia ---SIRS (T 101.0 F, HR 92). Influenza negative. SARS negative. ----CTA chest: Marked motion artifact, unremarka ble aorta. Lungs clear of infiltrates, effusion or congestion. No patholog ic adenopathy. -Received IV fluid hydration [NS x 2 L] -Blood culture x 2: No growth x 48 hours/contami nated -Rocephin 1 g IVPB Q24H. Cheryl thromycin 500 mg IVPB Q24H- finished course, monitor off abx -Duo nebs RT Q4H, Pulmicort 4 ml RT Q12H -Solumedrol 125 mg IVP x 1 -PRN: Robitussin -05/28: Initial BC with suspected contamination. R epeat collection. -BC x2, repeat: No growth #Hypertension -Coreg 12.5 mg PO BID -Amlodipine -Hydralazine 10 mg IVP PRN SBP > 160 #Coronary artery disease -Coreg 12.5 mg PO BID. Plavi x 75 mg PO QD. Aspirin 81 mg PO QD. Atorvastatin 80 mg PO QD #Hypothyroidism -Levothyroxine 25 mcg PO QD #Benign prostatic hypertrophy -Tamsulosin 0.4 mg PO QD. Proscar 5 mg PO QD -Strict intake and output #Dementia -Behavioral health consult: Dr. Stubbs -Celexa 40 mg PO QD. Aricept 10 mg PO QD. Trazod one 25 mg PO QHS -As needed: Zyprexa 2.5 mg PO Q6H. appreciate ps [facility] recs -Fall precautions #PUI for COVID-19 -Informed by staff that patient's spouse is pres ent COVID-positive. -PCR: Negative -Decadron 6 mg IVP QD-Dc'd. Guaifenesin 600 mg p .o. every 12 hours prn. Azithromycin/Rocephin- completed -Isolation precautions- DC'd #Abdominal distention, mild secondary to gas -Simethicone 80 mg PO QD -Monitor -05/31, KUB: Negative Full code by default NOK: Spouse, Giovanni Ho, PPX: Lovenox- hold for now due to hematuria Disposition: UA clear. Per urology attempted voi ding trials. No longer meets criteria for IP psych. CM for placement. Quality: Gen Med Crit Care VTE Prophylaxis VTE prophylaxis initiated: yes (mechanical comp device) Current Medications Current medication review: I attest that the foregoing medication list in t he medical record is true, accurate, and complete to the best of my knowled ge. Advanced Care Plan 65 or Older Discussed with: surrogate decis. maker (full cod e) Electronically Signed by Evon Dorado on 0 06/07/22 at 1601 at 1657 RPT #:[id number] END OF REPORT 2022-06-06 14:12:00-00:00 [facility] ([facility] Nephrology Progress Note REPORT#:[id number] REPORT STATUS: Signed DATE:06/06/22 TIME: 1412 PATIENT: KAYLA HO UNIT #: [id number] ROOM/BED: [address] : 47 AGE: 76 SEX: M ATTEND: Diogo Reynolds MD ADM AUTHOR: Lena Canela MD * ALL edits or amendments must be made on the [employer]/computer document * Subjective Comments: events noted Objective General VS/I O: Vital Signs: Date Time Temp Pulse Resp B/P B/P Pulse O2 O2 F low FiO2 Mean Ox Delivery Rate 06/06 1139 97.7 56 18 152/78 102.7 96 Room air 06/06 0725 95 Room air 06/06 0709 98.4 64 18 160/84 109.4 94 06/06 0409 98.4 63 18 154/88 109.6 96 06/06 0212 98 Room air 21 06/06 0023 58 97 06/06 0023 98.1 50 18 152/82 105.2 96 06/056 60 163/84 110.0 06/05 2021 98.2 60 18 162/78 106.1 96 06/05 1627 97.9 70 17 143/66 92.0 94 06/05 1534 97.9 79 16 145/85 104.7 94 24 hour I O ending at 0700: 06/06 0700 06/05 1900 Intake Total 900.00 Output Total 1100 Balance -200.00 Intake, IV 900.00 Output, Urine 1100 PATIENT WEIGHT: Weight (lb): Weight (oz): Weight (kg): 120.000 Medications Active Meds + DC'd Last 24 Hrs Albuterol/Ipratropium (DUONEB) 3 ML RTQ4H INH Amlodipine Besylate (NORVASC 5MG TAB) 5 MG OCTAVIO Y PO Enoxaparin Sodium (LOVENOX 30MG SYRINGE) 30 MG 1 700 SUBQ (DA) Dextrose/Sodium Chloride (DEXTROSE 5%-NS) 1,000 ML .[id number] IV Trazodone HCl (DESYREL) 50 MG BEDTIME PO Trazodone HCl (DESYREL) 25 MG BID PO Quetiapine Fumarate (SEROquel 25MG TAB) 25 MG Q6 H PRN PRN PO Simethicone (SIMETHICONE) 80 MG DAILY PO Guaifenesin (HUMIBID L.A.) 600 MG Q12HR PRN PO Budesonide (PULMICORT RESPULES 0.5MG/2ML) 4 ML R TQ12H NEB (CKD) Albuterol/Ipratropium (DUONEB) 3 ML RTQ4H INH (D C) Albuterol Sulfate (ALBUTEROL SULFATE) 2.5 MG RTQ 6H PRN PRN INH Benzonatate (BENZONATATE) 100 MG Q4H PRN PRN PO Hydralazine HCl (APRESOLINE) 10 MG Q2H PRN PRN I V Aspirin (ECOTRIN) 81 MG DAILY PO Atorvastatin Calcium (LIPITOR 40MG TAB) 80 MG DA HEIKE PO Carvedilol (COREG 12.5MG TAB) 12.5 MG BID PO Clopidogrel Bisulfate (PLAVIX 75MG TAB) 75 MG DA HEIKE PO Donepezil HCl (ARICEPT 10MG TAB) 10 MG DAILY PO Finasteride (PROSCAR 5MG TAB) 5 MG DAILY PO Multivitamins Therapeutic (THERAGRAN) 1 UDTAB DA HEIKE PO Tamsulosin HCl (FLOMAX 0.4MG CAPSULE) 0.4 MG CHETAN LY PO Levothyroxine Sodium (SYNTHROID) 25 MCG DAILY 06 00 PO Pantoprazole Sodium (PROTONIX) 20 MG DAILY@0600 PO Acetaminophen (TYLENOL EXTRA STRENGTH) 500 MG Q6 H PRN PRN PO Calcium Carbonate (TUMS 500MG) 1,000 MG Q6H PRN PRN PO Docusate Sodium (COLACE 100 MG CAPSULE) 100 MG B ID PRN PRN PO Melatonin (MELATONIN) 3 MG BEDTIME PRN PRN PO Physical Exam General appearance: sleeping comfortably Head/eyes: atraumatic, normocephalic Neck: no JVD, no lymphadenopathy Cardiovascular: normal heart sounds, regular rat e and rhythm, no rub Respiratory: aerating well, clear to auscultatio n, no distress Abdomen: non-tender, normal bowel sounds, soft, no rebound Genitourinary: urinary catheter, urine, hematuri a Extremities: no edema, no gangrene Results Findings/Data: Laboratory Tests 06/05/22 0226: [Embedded Image Not Available] Diagnosis, Assessment Plan Free Text A P: 1. Acute kidney injury. Secondary to obstructive uropathy. Status post Leyva catheter. Resolved. Creatinine normal. DC'd IV f luid. Check lab in AM. Avoid nephrotoxic medications. 2. History of benign prostatic hypertrophy. Stat us post Leyva. urology consulted, currently with hematuria. Monitor H H 3. Coronary artery disease. 4. Hypertension. On Coreg. DC'd IV fluid as bloo d pressure was elevated. no new reccs; will sign off, but be available; please reconsult as needed; Thank You Electronically Signed by Lena Canela MD on 0 06/06/22 at 1415 RPT #:[id number] END OF REPORT 2022-06-06 10:59:00-00:00 [facility] ([facility]) Hospitalist Progress Note REPORT#:[id number] REPORT STATUS: Signed DATE:06/06/22 TIME: 1059 PATIENT: KAYLA HO UNIT #: [id number] ROOM/BED: [address] : 47 AGE: 76 SEX: M ATTEND: Diogo Reynolds MD ADM AUTHOR: Evon Dorado * ALL edits or amendments must be made on the [employer]/computer document * Subjective Chief complaint: confused somnolent leyva HPI: Mr. Ho is a 76-year-old man with history of de mentia, hypothyroidism, hyperlipidemia, benign prost atic hypertrophy, hypertension with coronary artery disease admitted from [facility] with reports of shortness of breath and cough. Review of Systems Unable to obtain due to: Related to impaired cognition Objective General VS/I O: Vital Signs: Date Time Temp Pulse Resp B/P B/P Pulse O2 O2 F low FiO2 Mean Ox Delivery Rate 06/06 0725 95 Room air 06/06 07 98.4 64 18 160/84 109.4 94 06/06 0409 98.4 63 18 154/88 109.6 96 06/06 0212 98 Room air 21 06/06 0023 58 97 06/06 0023 98.1 50 18 152/82 105.2 96 06/05 2116 60 163/84 110.0 06/05 2022 98.2 60 18 162/78 106.1 96 06/05 1627 97.9 70 17 143/66 92.0 94 06/05 1534 97.9 79 16 145/85 104.7 94 24 hour I O ending at 0700: 06/06 0700 06/05 1900 Intake Total 900.00 Output Total 1100 Balance -200.00 Intake, IV 900.00 Output, Urine 1100 PATIENT WEIGHT: Weight (lb): Weight (oz): Weight (kg): 120.000 Medications: Active Meds + DC'd Last 24 Hrs Amlodipine Besylate (NORVASC 5MG TAB) 5 MG DAILY PO Enoxaparin Sodium (LOVENOX 30MG SYRINGE) 30 MG 1 700 SUBQ (DA) Dextrose/Sodium Chloride (DEXTROSE 5%-NS) 1,000 ML .[id number] IV Trazodone HCl (DESYREL) 50 MG BEDTIME PO Trazodone HCl (DESYREL) 25 MG BID PO Quetiapine Fumarate (SEROquel 25MG TAB) 25 MG Q6 H PRN PRN PO Simethicone (SIMETHICONE) 80 MG DAILY PO Guaifenesin (HUMIBID L.A.) 600 MG Q12HR PRN PO Budesonide (PULMICORT RESPULES 0.5MG/2ML) 4 ML R TQ12H NEB (CKD) Albuterol/Ipratropium (DUONEB) 3 ML RTQ4H INH Albuterol Sulfate (ALBUTEROL SULFATE) 2.5 MG RTQ 6H PRN PRN INH Benzonatate (BENZONATATE) 100 MG Q4H PRN PRN PO Hydralazine HCl (APRESOLINE) 10 MG Q2H PRN PRN I V Aspirin (ECOTRIN) 81 MG DAILY PO Atorvastatin Calcium (LIPITOR 40MG TAB) 80 MG DA HEIKE PO Carvedilol (COREG 12.5MG TAB) 12.5 MG BID PO Clopidogrel Bisulfate (PLAVIX 75MG TAB) 75 MG DA HEIKE PO Donepezil HCl (ARICEPT 10MG TAB) 10 MG DAILY PO Finasteride (PROSCAR 5MG TAB) 5 MG DAILY PO Multivitamins Therapeutic (THERAGRAN) 1 UDTAB DA HEIKE PO Tamsulosin HCl (FLOMAX 0.4MG CAPSULE) 0.4 MG CHETAN LY PO Levothyroxine Sodium (SYNTHROID) 25 MCG DAILY 06 00 PO Pantoprazole Sodium (PROTONIX) 20 MG DAILY@0600 PO Acetaminophen (TYLENOL EXTRA STRENGTH) 500 MG Q6 H PRN PRN PO Calcium Carbonate (TUMS 500MG) 1,000 MG Q6H PRN PRN PO Docusate Sodium (COLACE 100 MG CAPSULE) 100 MG B ID PRN PRN PO Melatonin (MELATONIN) 3 MG BEDTIME PRN PRN PO Physical Exam General appearance: confused, no acute distress, no respiratory distress Head/Eyes: atraumatic, clear cornea, EOMI, normo cephalic, PERRL ENT: moist mucosal membranes, normal dentition, normal nose Neck: non-tender, supple/no meningismus, no JVD Cardiovascular: normal heart sounds, regular rat e rhythm, no murmur Respiratory: aerating well, clear to auscultatio n, symmetric expansion, no distress Abdomen: non-tender, normal bowel sounds, soft, no distention Genitourinary: urinary catheter Extremities: decreased range of motion, normal capillary refill, no clubbing, no cyanosis, no edema Musculoskeletal: decreased ROM, no CVA tendernes s, no muscle spasm 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: disoriented, alert, face symmetrical, not answering questions Skin: dry, intact, normal color, normal temperat ure Psychiatry: unable to evaluate Diagnosis, Assessment Plan Consultants: psychiatry Plan discussed with: collaborating MD Time spent: Time spent on patient care (minutes): 35 Free Text DxA P Notes Free text DxA P notes: 76-year-old man with: #Acute kidney failure #Metabolic acidosis -Crea 1.1 on 05/30, now 06/03 Crea 5.9, BUN 75 -Leyva catheter, strict I and O -US renal: Unremarkable -Nephrology consult: Dr. Canela -UA: Negative #Urinary retention #Hematuria -hx. of BPH, currently on flomax, proscar -leyva in situ -urology consult: Dr. Mcguire #Sepsis, present on admission secondary to left lower lobe community-acquired pneumonia ---SIRS (T 101.0 F, HR 92). Influenza negative. SARS negative. ----CTA chest: Marked motion artifact, unremarka ble aorta. Lungs clear of infiltrates, effusion or congestion. No patholog ic adenopathy. -Received IV fluid hydration [NS x 2 L] -Blood culture x 2: No growth x 48 hours/contami nated -Rocephin 1 g IVPB Q24H. Cheryl thromycin 500 mg IVPB Q24H- finished course, monitor off abx -Duo nebs RT Q4H, Pulmicort 4 ml RT Q12H -Solumedrol 125 mg IVP x 1 -PRN: Robitussin -05/28: Initial BC with suspected contamination. R epeat collection. -BC x2, repeat: No growth #Hypertension -Coreg 12.5 mg PO BID -Amlodipine -Hydralazine 10 mg IVP PRN SBP > 160 #Coronary artery disease -Coreg 12.5 mg PO BID. Plavi x 75 mg PO QD. Aspirin 81 mg PO QD. Atorvastatin 80 mg PO QD #Hypothyroidism -Levothyroxine 25 mcg PO QD #Benign prostatic hypertrophy -Tamsulosin 0.4 mg PO QD. Proscar 5 mg PO QD -Strict intake and output #Dementia -Behavioral health consult: Dr. Stubbs -Celexa 40 mg PO QD. Aricept 10 mg PO QD. Trazod one 25 mg PO QHS -As needed: Zyprexa 2.5 mg PO Q6H. appreciate ps [facility] recs -Fall precautions #PUI for COVID-19 -Informed by staff that patient's spouse is pres ent COVID-positive. -PCR: Negative -Decadron 6 mg IVP QD-Dc'd. Guaifenesin 600 mg p .o. every 12 hours prn. Azithromycin/Rocephin- completed -Isolation precautions- DC'd #Abdominal distention, mild secondary to gas -Simethicone 80 mg PO QD -Monitor -05/31, KUB: Negative Full code by default NOK: Spouse, Giovanni Ho, PPX: Lovenox- hold for now due to hematuria Disposition: UA clear. Per urology attempted gordy reece. Pending medical/ psych clearance prior to returning to [facility]. Quality: Gen Med Crit Care VTE Prophylaxis VTE prophylaxis initiated: yes (mechanical comp device) Current Medications Current medication review: I attest that the foregoing medication list in t he medical record is true, accurate, and complete to the best of my knowled ge. Advanced Care Plan 65 or Older Discussed with: surrogate decis. maker (full cod e) Electronically Signed by Evon Dorado on 0 06/06/22 at 1106 at 1714 RPT #:[id number] END OF REPORT 2022-06-05 21:43:00-00:00 [facility] ([facility]) Urology Consult Note REPORT#:[id number] REPORT STATUS: Signed DATE:06/05/22 TIME: 2142 PATIENT: KAYLA HO UNIT #: [id number] ROOM/BED: [address] : 47 AGE: 76 SEX: M ATTEND: Diogo Reynolds MD ADM AUTHOR: Fazal Mcguire MD * ALL edits or amendments must be made on the [employer] document * History of Present Illness HPI HPI: Asked to see this 76 yo man with urinary retention. He is out of it at present and is unable to give a good history. His leyva is draining largely clear urine at present and he is present on Tamsulosin. I wi ll consider a voiding trial later this week after more history can be obtain ed. Thanks for consult! History Past medical history: Reports: Coronary artery disease, Dementia, Hype rtension. Additional medical history: Hyperlipidemia, benign prostatic hypertrophy Additional surgical history: Cholecystectomy based on surgical scar Additional family history: Unable to obtain Smoking status for patients 13 years old or olde r: Unknown,if ever smoked Allergies: Coded Allergies: No Known Allergies (05/28/22) Diagnosis, Assessment Plan Diagnosis, Assessment Plan Consultants: psychiatry at 2144 RPT #:[id number] END OF REPORT 2022-06-05 10:29:00-00:00 [facility] ([facility]) Nephrology Progress Note REPORT#:[id number] REPORT STATUS: Signed DATE:06/05/22 TIME: 1029 PATIENT: KAYLA HO UNIT #: [id number] ROOM/BED: [address] : 47 AGE: 76 SEX: M ATTEND: Diogo Reynolds MD ADM AUTHOR: Janel Rutherford MD * ALL edits or amendments must be made on the [employer] document * See Addendum Subjective Comments: Remains with hematuria. Sitter at bedside Objective General VS/I O: Vital Signs: Date Time Temp Pulse Resp B/P B/P Pulse O2 O2 F low FiO2 Mean Ox Delivery Rate 06/05 737 98.1 63 16 165/88 113.6 100 06/05 07 98 Room air 0 21 06/05 310 97.9 63 22 160/86 110.5 98 06/05 0045 97 Room air 06/04 98.6 55 22 152/75 100.8 97 06/04 1904 99.0 59 18 159/80 106.3 95 06/04 1650 98.2 57 17 152/82 105.3 96 06/04 1121 98.2 62 17 138/75 96.4 93 24 hour I O ending at 0700: 06/05 0700 06/04 1900 Intake Total 60 Output Total 1900 Balance -1840 Intake, Oral 60 Number 2 Bowel Movements Output, Urine 1900 PATIENT WEIGHT: Weight (lb): Weight (oz): Weight (kg): 120.000 Medications Active Meds + DC'd Last 24 Hrs Enoxaparin Sodium (LOVENOX 30MG SYRINGE) 30 MG 1 700 SUBQ (DA) Dextrose/Sodium Chloride (DEXTROSE 5%-NS) 1,000 ML .[id number] IV Trazodone HCl (DESYREL) 50 MG BEDTIME PO Trazodone HCl (DESYREL) 25 MG BID PO Quetiapine Fumarate (SEROquel 25MG TAB) 25 MG Q6 H PRN PRN PO Simethicone (SIMETHICONE) 80 MG DAILY PO Guaifenesin (HUMIBID L.A.) 600 MG Q12HR PRN PO Budesonide (PULMICORT RESPULES 0.5MG/2ML) 4 ML R TQ12H NEB (CKD) Albuterol/Ipratropium (DUONEB) 3 ML RTQ4H INH Albuterol Sulfate (ALBUTEROL SULFATE) 2.5 MG RTQ 6H PRN PRN INH Benzonatate (BENZONATATE) 100 MG Q4H PRN PRN PO Hydralazine HCl (APRESOLINE) 10 MG Q2H PRN PRN I V Aspirin (ECOTRIN) 81 MG DAILY PO Atorvastatin Calcium (LIPITOR 40MG TAB) 80 MG DA HEIKE PO Carvedilol (COREG 12.5MG TAB) 12.5 MG BID PO Clopidogrel Bisulfate (PLAVIX 75MG TAB) 75 MG DA HEIKE PO Donepezil HCl (ARICEPT 10MG TAB) 10 MG DAILY PO Finasteride (PROSCAR 5MG TAB) 5 MG DAILY PO Multivitamins Therapeutic (THERAGRAN) 1 UDTAB DA HEIKE PO Tamsulosin HCl (FLOMAX 0.4MG CAPSULE) 0.4 MG CHETAN LY PO Levothyroxine Sodium (SYNTHROID) 25 MCG DAILY 06 00 PO Pantoprazole Sodium (PROTONIX) 20 MG DAILY@0600 PO Acetaminophen (TYLENOL EXTRA STRENGTH) 500 MG Q6 H PRN PRN PO Calcium Carbonate (TUMS 500MG) 1,000 MG Q6H PRN PRN PO Docusate Sodium (COLACE 100 MG CAPSULE) 100 MG B ID PRN PRN PO Melatonin (MELATONIN) 3 MG BEDTIME PRN PRN PO Physical Exam General appearance: sleeping comfortably Head/eyes: atraumatic, normocephalic Neck: no JVD, no lymphadenopathy Cardiovascular: normal heart sounds, regular rat e and rhythm, no rub Respiratory: aerating well, clear to auscultatio n, no distress Abdomen: non-tender, normal bowel sounds, soft, no rebound Genitourinary: urinary catheter, urine, hematuri a Extremities: no edema, no gangrene Results Findings/Data: Laboratory Tests 06/05 225 Chemistry Sodium (136 - 145 mmol/L) 142 Potassium (3.5 - 5.1 mmol/L) 4.1 Chloride (98 - 107 mmol/L) 112.0 H Carbon Dioxide (21 - 32 mmol/L) 20.0 L Anion Gap (10 - 20) 14.1 BUN (7 - 18 mg/dL) 16 Creatinine (0.7 - 1.3 mg/dL) 0.80 Glomerular Filtr Rate (>=60 mL/min) > 60 BUN/Creatinine Ratio (10 - 20) 20.0 Glucose (74 - 106 mg/dL) 76 Calcium (8.5 - 10.1 mg/dL) 7.9 L Laboratory Tests 06/05 225 Hematology WBC (4.5 - 12.5 K/mm3) 7.3 RBC (4.0 - 5.8 mill/mm3) 3.99 L Hgb (13.0 - 17.5 gram/dL) 12.3 L Hct (42.0 - 52.0 %) 37.9 L MCV (80 - 98 fL) 95.0 MCH (27.0 - 33.0 picogram) 30.8 MCHC (33.0 - 36.0 gram/dL) 32.5 L RDW (11.6 - 16.2 %) 12.6 RDW Std Deviation (37.0 - 51.0 fL) 43.8 Plt Count (150 - 450 K/mm3) 263 MPV (6.7 - 11.0 fL) 10.1 Neut % (Auto) (39.0 - 69.0 %) 71.6 H Lymph % (Auto) (25.0 - 55.0 %) 13.8 L [place] % (Auto) (0.0 - 10.0 %) 8.5 Eos % (Auto) (0.0 - 5.0 %) 5.3 H Baso % (Auto) (0.0 - 1.0 %) 0.3 Neut # (Auto) (1.8 - 7.7 K/mm3) 5.23 Lymph # (Auto) (1.0 - 5.0 K/mm3) 1.01 [place] # (Auto) (0 - 0.8 K/mm3) 0.62 Eos # (Auto) (0.0 - 0.5 K/mm3) 0.39 Baso # (Auto) (0.0 - 0.2 K/mm3) 0.02 Nucleated RBC % (0 - 0 %) 0.0 Nucleated RBCs # (Man) (0.0 - 0.1 K/mm3) 0.00 Diagnosis, Assessment Plan Free Text A P: 1. Acute kidney injury. Secondary to obstructive uropathy. Status post Leyva catheter. Resolved. Creatinine down to 1.9>0.8 t fermin. DC IV fluid. Check lab in AM. Avoid nephrotoxic medications. 2. History of benign prostatic hypertrophy. Stat us post Leyva. urology consulted, currently with hematuria. Monitor H H 3. Coronary artery disease. 4. Hypertension. On Coreg. DC IV fluid as blood pressure elevated. Electronically Signed by Janel Rutherford MD on at 1101 Addendum 1: 06/05/22 1102 by Janel Rutherford MD Continue with IV fluid as with poor p.o. intake and low blood sugar. Add amlodipine for better blood pressure control Electronically Signed by Janel Rutherford MD on at 1102 RPT #:[id number] END OF REPORT 2022-06-05 07:43:00-00:00 [facility] ([facility]) Hospitalist Progress Note REPORT#:[id number] REPORT STATUS: Signed DATE:06/05/22 TIME: 0743 PATIENT: KAYLA HO UNIT #: [id number] ROOM/BED: [address] : 47 AGE: 76 SEX: M ATTEND: Diogo Reynolds MD ADM AUTHOR: Adonis Womack BIOLOGY MANAGER * ALL edits or amendments must be made on the el [employer]/computer document * Subjective Chief complaint: confused somnolent sitter at bedside leyva HPI: Mr. Ho is a 76-year-old man with history of de mentia, hypothyroidism, hyperlipidemia, benign prost atic hypertrophy, hypertension with coronary artery disease admitted from [facility] with reports of shortness of breath and cough. Review of Systems All systems rev neg: except as noted Unable to obtain due to: confused Objective General VS/I O: Vital Signs: Date Time Temp Pulse Resp B/P B/P Pulse O2 O2 Flow FiO2 Mean Ox Delivery Rate 06/05 1627 97.9 70 17 143/66 92.0 94 06/05 1534 97.9 79 16 145/85 104.7 94 06/05 1058 98.1 69 16 151/79 102.9 96 06/05 0738 98.1 63 16 165/88 113.6 100 06/05 0723 98 Room air 0 21 06/05 0311 97.9 63 22 160/86 110.5 98 06/05 0045 97 Room air 21 06/04 2259 98.6 55 22 152/75 100.8 97 24 hour I O ending at 0700: 06/05 0700 06/04 1900 Intake Total 60 Output Total 1900 Balance -1840 Intake, Oral 60 Number 2 Bowel Movements Output, Urine 1900 PATIENT WEIGHT: Weight (lb): Weight (oz): Weight (kg): 120.000 Physical Exam General appearance: confused, lethargic, alert, awake Head/Eyes: atraumatic, clear cornea, EOMI, normo cephalic, PERRL ENT: moist mucosal membranes, normal dentition, normal nose Neck: non-tender, supple/no meningismus, no JVD Cardiovascular: normal heart sounds, regular rat e rhythm, no murmur Respiratory: aerating well, clear to auscultatio n, symmetric expansion, no distress Abdomen: non-tender, normal bowel sounds, soft, no distention Genitourinary: flank pain (hematuria), urinary c atheter Extremities: decreased range of motion, normal capillary refill, no clubbing, no cyanosis, no edema Musculoskeletal: decreased ROM, no CVA tendernes s, no muscle spasm 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: disoriented, alert, face symmetrical, not answering questions Skin: dry, intact, normal color, normal temperat ure Psychiatry: unable to evaluate Results Findings/Data: Laboratory Tests 06/05 225 Chemistry Sodium (136 - 145 mmol/L) 142 Potassium (3.5 - 5.1 mmol/L) 4.1 Chloride (98 - 107 mmol/L) 112.0 H Carbon Dioxide (21 - 32 mmol/L) 20.0 L Anion Gap (10 - 20) 14.1 BUN (7 - 18 mg/dL) 16 Creatinine (0.7 - 1.3 mg/dL) 0.80 Glomerular Filtr Rate (>=60 mL/min) > 60 BUN/Creatinine Ratio (10 - 20) 20.0 Glucose (74 - 106 mg/dL) 76 Calcium (8.5 - 10.1 mg/dL) 7.9 L Laboratory Tests 06/05 225 Hematology WBC (4.5 - 12.5 K/mm3) 7.3 RBC (4.0 - 5.8 mill/mm3) 3.99 L Hgb (13.0 - 17.5 gram/dL) 12.3 L Hct (42.0 - 52.0 %) 37.9 L MCV (80 - 98 fL) 95.0 MCH (27.0 - 33.0 picogram) 30.8 MCHC (33.0 - 36.0 gram/dL) 32.5 L RDW (11.6 - 16.2 %) 12.6 RDW Std Deviation (37.0 - 51.0 fL) 43.8 Plt Count (150 - 450 K/mm3) 263 MPV (6.7 - 11.0 fL) 10.1 Neut % (Auto) (39.0 - 69.0 %) 71.6 H Lymph % (Auto) (25.0 - 55.0 %) 13.8 L [place] % (Auto) (0.0 - 10.0 %) 8.5 Eos % (Auto) (0.0 - 5.0 %) 5.3 H Baso % (Auto) (0.0 - 1.0 %) 0.3 Neut # (Auto) (1.8 - 7.7 K/mm3) 5.23 Lymph # (Auto) (1.0 - 5.0 K/mm3) 1.01 [place] # (Auto) (0 - 0.8 K/mm3) 0.62 Eos # (Auto) (0.0 - 0.5 K/mm3) 0.39 Baso # (Auto) (0.0 - 0.2 K/mm3) 0.02 Nucleated RBC % (0 - 0 %) 0.0 Nucleated RBCs # (Man) (0.0 - 0.1 K/mm3) 0.00 Diagnosis, Assessment Plan Consultants: psychiatry Free Text DxA P Notes Free text DxA P notes: 76-year-old man with: #Acute kidney failure #metabolic acidosis Crea 1.1 on 05/30, now 06/03 Crea 5.9, BUN 75 insert leyva catheter, strict I and O, check for urinary rentention US renal avoid nephrotoxins IVF nephrology consult urinalysis #urinary retention #hematuria hx. of BPH, currently on flomax, proscar leyva in situ urology consult #Sepsis, present on admission secondary to left lower lobe community-acquired pneumonia ---SIRS (T 101.0 F, HR 92). Influenza negative. SARS negative. ----CTA chest: Marked motion artifact, unremarka ble aorta. Lungs clear of infiltrates, effusion or congestion. No patholog ic adenopathy. -Received IV fluid hydration [NS x 2 L] -Blood culture x 2: No growth x 48 hours/contami nated -Rocephin 1 g IVPB Q24H. Cheryl thromycin 500 mg IVPB Q24H- finished course, monitor off abx -Duo nebs RT Q4H, Pulmicort 4 ml RT Q12H -Solumedrol 125 mg IVP x 1 -PRN: Robitussin -05/28: Initial BC with suspected contamination. R epeat collection. -BC x2, repeat: No growth #Hypertension -Coreg 12.5 mg PO BID -Hydralazine 10 mg IVP PRN SBP > 160 #Coronary artery disease -Coreg 12.5 mg PO BID. Plavi x 75 mg PO QD. Aspirin 81 mg PO QD. Atorvastatin 80 mg PO QD #Hypothyroidism -Levothyroxine 25 mcg PO QD #Benign prostatic hypertrophy -Tamsulosin 0.4 mg PO QD. Proscar 5 mg PO QD -Strict intake and output #Dementia -Behavioral health consult: Dr. Stubbs -Celexa 40 mg PO QD. Aricept 10 mg PO QD. Trazod one 25 mg PO QHS -As needed: Zyprexa 2.5 mg PO Q6H. appreciate ps [facility] recs -Fall precautions #PUI for COVID-19 -Informed by staff that patient's spouse is pres ent COVID-positive. -PCR: Negative -Decadron 6 mg IVP QD-Dc'd. Guaifenesin 600 mg p .o. every 12 hours prn. Azithromycin/Rocephin- completed -Isolation precautions- DC'd #Abdominal distention, mild secondary to gas -Simethicone 80 mg PO QD -Monitor -05/31, KUB: Negative Full code by default NOK: Spouse, Giovanni Ho, PPX: Lovenox- hold for now due to hematuria Quality: Gen Med Crit Care VTE Prophylaxis VTE prophylaxis initiated: yes (mechanical comp device) Current Medications Current medication review: I attest that the foregoing medication list in t he medical record is true, accurate, and complete to the best of my knowled ge. Advanced Care Plan 65 or Older Discussed with: surrogate decis. maker (full cod e) Electronically Signed by Adonis Womack BIOLOGY MANAGER on 11/19 at 1913 at 1108 RPT #:[id number] END OF REPORT 2022-06-04 09:20:00-00:00 [facility] ([facility]) Nephrology Progress Note REPORT#:[id number] REPORT STATUS: Signed DATE:06/04/22 TIME: 919 PATIENT: KAYLA HO UNIT #: [id number] ROOM/BED: [address] : 47 AGE: 76 SEX: M ATTEND: Diogo Reynolds MD ADM AUTHOR: Janel Rutherford MD * ALL edits or amendments must be made on the el [employer]/computer document * Subjective Comments: Confused, agitated. Sitter at bedside. Currently resting. Positive hematuria Objective General VS/I O: Vital Signs: Date Time Temp Pulse Resp B/P B/P Pulse O2 O2 Flow FiO2 Mean Ox Delivery Rate 06/04 812 93 Room air 0 21 06/04 0710 97.5 63 17 129/72 90.9 92 06/04 0347 97.7 52 20 150/71 97.0 95 06/04 0002 97.7 70 20 96 06/03 2014 93 Room air 21 06/03 1933 98.8 63 20 147/79 101.5 94 06/03 1622 97.7 74 16 146/74 98.1 94 Room air 06/03 1438 97.5 77 16 156/78 104.0 93 Room air 24 hour I O ending at 0700: 06/04 0700 06/03 1900 Intake Total 960.00 Output Total 1999 Balance -1040.00 Intake, IV 900.00 Intake, Oral 60 Output, Urine 1999 PATIENT WEIGHT: Weight (lb): Weight (oz): Weight (kg): 120.000 Medications Active Meds + DC'd Last 24 Hrs Enoxaparin Sodium (LOVENOX 30MG SYRINGE) 30 MG 1 700 SUBQ Dextrose/Sodium Chloride (DEXTROSE 5%-NS) 1,000 ML .[id number] IV Trazodone HCl (DESYREL) 50 MG BEDTIME PO Trazodone HCl (DESYREL) 25 MG BID PO Quetiapine Fumarate (SEROquel 25MG TAB) 25 MG Q6 H PRN PRN PO Simethicone (SIMETHICONE) 80 MG DAILY PO Guaifenesin (HUMIBID L.A.) 600 MG Q12HR PRN PO Budesonide (PULMICORT RESPULES 0.5MG/2ML) 4 ML R TQ12H NEB (CKD) Albuterol/Ipratropium (DUONEB) 3 ML RTQ4H INH Albuterol Sulfate (ALBUTEROL SULFATE) 2.5 MG RTQ 6H PRN PRN INH Benzonatate (BENZONATATE) 100 MG Q4H PRN PRN PO Enoxaparin Sodium (LOVENOX 40MG SYRINGE) 40 MG 1 700 SUBQ (DC) Hydralazine HCl (APRESOLINE) 10 MG Q2H PRN PRN I V Aspirin (ECOTRIN) 81 MG DAILY PO Atorvastatin Calcium (LIPITOR 40MG TAB) 80 MG DA HEIKE PO Carvedilol (COREG 12.5MG TAB) 12.5 MG BID PO Clopidogrel Bisulfate (PLAVIX 75MG TAB) 75 MG DA HEIKE PO Donepezil HCl (ARICEPT 10MG TAB) 10 MG DAILY PO Fenofibrate 145 MG DAILY PO (DC) Finasteride (PROSCAR 5MG TAB) 5 MG DAILY PO Multivitamins Therapeutic (THERAGRAN) 1 UDTAB DA HEIKE PO Tamsulosin HCl (FLOMAX 0.4MG CAPSULE) 0.4 MG CHETAN LY PO Levothyroxine Sodium (SYNTHROID) 25 MCG DAILY 06 00 PO Pantoprazole Sodium (PROTONIX) 20 MG DAILY@0600 PO Acetaminophen (TYLENOL EXTRA STRENGTH) 500 MG Q6 H PRN PRN PO Calcium Carbonate (TUMS 500MG) 1,000 MG Q6H PRN PRN PO Docusate Sodium (COLACE 100 MG CAPSULE) 100 MG B ID PRN PRN PO Melatonin (MELATONIN) 3 MG BEDTIME PRN PRN PO Physical Exam General appearance: sleeping comfortably Head/eyes: atraumatic, normocephalic Neck: no JVD, no lymphadenopathy Cardiovascular: normal heart sounds, regular rat e and rhythm, no rub Respiratory: aerating well, clear to auscultatio n, no distress Abdomen: non-tender, normal bowel sounds, soft, no rebound Genitourinary: urinary catheter, urine, hematuri a Extremities: no edema, no gangrene Results Findings/Data: Laboratory Tests 06/03 1650 Blood Gas Puncture Site Rt RADIAL ARTERY ABG pH (7.35 - 7.45) 7.50 H ABG pCO2 (35 - 45 mm Hg) 20.2 *L ABG pO2 (80 - 100 mmHg) 70.3 L ABG HCO3 (23.0 - 27.0 mmol/L) 15.4 L ABG O2 Saturation (90.0 - 98.0 %) 94.8 ABG Base Excess (-3.0 - 5.0 mmol/L) -5.0 *L ABG Hematocrit (42 - 52 %) 45 Maximilian Test (PERFORMED CHECK) Yes Hgb O2 Saturation (94.00 - 98.00 %) 93.9 L Carboxyhemoglobin (0.5 - 1.5 %totalHg) 0.5 Methemoglobin (0.0 - 1.50 %) 0.5 Total Hemoglobin (13.0 - 17.5 gram/dL) 15.2 Oxygen Content (18.0 - 22.0 % vol) 20.1 Patient On Oxygen Arterial FiO2 21.0 Laboratory Tests 06/04 06/03 0325 1240 Chemistry Sodium (136 - 145 mmol/L) 145 140 Potassium (3.5 - 5.1 mmol/L) 4.2 4.5 Chloride (98 - 107 mmol/L) 115.0 H 110.0 H Carbon Dioxide (21 - 32 mmol/L) 20.0 L 16.0 L Anion Gap (10 - 20) 14.2 18.5 BUN (7 - 18 mg/dL) 26 H 72 H Creatinine (0.7 - 1.3 mg/dL) 1.30 5.90 H Glomerular Filtr Rate (>=60 mL/min) 58 9 BUN/Creatinine Ratio (10 - 20) 20.0 12.3 Glucose (74 - 106 mg/dL) 91 161 H Calcium (8.5 - 10.1 mg/dL) 7.9 L 8.4 L Laboratory Tests 06/03 1133 Urines Urine Color (YELLOW) YELLOW Urine Appearance (CLEAR) CLEAR Urine pH (5.0 - 8.0) 5.5 Ur Specific [place] (1.001 - 1.035) 1.017 Urine Protein (NEGATIVE mg/dL) NEGATIVE Urine Glucose (UA) (NEGATIVE mg/dL) NEGATIVE Urine Ketones (NEGATIVE mg/dL) NEGATIVE Urine Blood (NEGATIVE mg/dL) 0.06 mg/dL (1+) H Urine Nitrite (NEGATIVE) NEGATIVE Urine Bilirubin (NEGATIVE mg/dL) NEGATIVE Urine Urobilinogen (NEGATIVE mg/dL) Normal Ur Leukocyte Esterase (NEGATIVE Gilma/uL) NEGATIV E Urine RBC (0 - 5 #/HPF) 11-20 H Urine WBC (0 - 5 per HPF) 0-5 Ur Epithelial Cells (FEW per HPF) None seen Urine Bacteria (NONE #/HPF) NONE SEEN Radiology data: Recent Impressions: ULTRASOUND - [facility] 06/03 3164 Report Impression - Status: SIGNED Entered: 06/03/20221746 IMPRESSION: The right kidney is surgically absent. There is compensatory hypertrophy of the left ki dney. Otherwise the left kidney is sonographically unremarkable. Location: [facility] Impression By: [email or web address] - Sai Redman MD Diagnosis, Assessment Plan Free Text A P: 1. Acute kidney injury. Secondary to obstructive uropathy. Status post Leyva catheter. Creatinine down to 1.9 today. Continue with IV fluid. Check lab in AM. Avoid nephrotoxic medications. 2. History of benign prostatic hypertrophy. Stat us post Leyva. Recommend urology consult, currently with hematuria. Monit or H H 3. Coronary artery disease. 4. Hypertension. Controlled Electronically Signed by Janel Rutherford MD on at 1005 RPT #:[id number] END OF REPORT 2022-06-04 09:02:00-00:00 [facility] ([facility]) Hospitalist Progress Note REPORT#:[id number] REPORT STATUS: Signed DATE:06/04/22 TIME: 901 PATIENT: KAYLA HO UNIT #: [id number] ROOM/BED: [address] : 47 AGE: 76 SEX: M ATTEND: Diogo Reynolds MD ADM AUTHOR: Adonis Womack NP * ALL edits or amendments must be made on the [employer]/computer document * Subjective Chief complaint: confused sitter at bedside not eating much urine output noted Crea 1.3 HPI: Mr. Ho is a 76-year-old man with history of de mentia, hypothyroidism, hyperlipidemia, benign prost atic hypertrophy, hypertension with coronary artery disease admitted from [facility] with reports of shortness of breath and cough. Review of Systems Unable to obtain due to: confused Objective General VS/I O: Vital Signs: Date Time Temp Pulse Resp B/P B/P Pulse O2 O2 F low FiO2 Mean Ox Delivery Rate 06/04 1121 98.2 62 17 138/75 96.4 93 06/04 0813 93 Room air 0 21 06/04 0710 97.5 63 17 129/72 90.9 92 06/04 0347 97.7 52 20 150/71 97.0 95 06/04 0002 97.7 70 20 96 06/03 2014 93 Room air 21 06/03 1933 98.8 63 20 147/79 101.5 94 06/03 1622 97.7 74 16 146/74 98.1 94 Room air 06/03 1438 97.5 77 16 156/78 104.0 93 Room air 24 hour I O ending at 0700: 06/04 0700 06/03 1900 Intake Total 960.00 Output Total 1999 Balance -1040.00 Intake, IV 900.00 Intake, Oral 60 Output, Urine 2000 PATIENT WEIGHT: Weight (lb): Weight (oz): Weight (kg): 120.000 Physical Exam General appearance: alert, awake Head/Eyes: atraumatic, clear cornea, EOMI, normo cephalic, PERRL ENT: moist mucosal membranes, normal dentition, normal nose Neck: non-tender, supple/no meningismus, no JVD Cardiovascular: normal heart sounds, regular rat e rhythm, no murmur Respiratory: aerating well, clear to auscultatio n, symmetric expansion, no distress Abdomen: non-tender, normal bowel sounds, soft, no distention Genitourinary: flank pain (hematuria) Extremities: decreased range of motion, normal capillary refill, no clubbing, no cyanosis, no edema Musculoskeletal: decreased ROM, no CVA tendernes s, no muscle spasm 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: disoriented, alert, face symmetrical, not answering questions Skin: dry, intact, normal color, normal temperat ure Psychiatry: unable to evaluate Results Findings/Data: Laboratory Tests 06/03 1650 Blood Gas Puncture Site Rt RADIAL ARTERY ABG pH (7.35 - 7.45) 7.50 H ABG pCO2 (35 - 45 mm Hg) 20.2 *L ABG pO2 (80 - 100 mmHg) 70.3 L ABG HCO3 (23.0 - 27.0 mmol/L) 15.4 L ABG O2 Saturation (90.0 - 98.0 %) 94.8 ABG Base Excess (-3.0 - 5.0 mmol/L) -5.0 *L ABG Hematocrit (42 - 52 %) 45 Maximilian Test (PERFORMED CHECK) Yes Hgb O2 Saturation (94.00 - 98.00 %) 93.9 L Carboxyhemoglobin (0.5 - 1.5 %totalHg) 0.5 Methemoglobin (0.0 - 1.50 %) 0.5 Total Hemoglobin (13.0 - 17.5 gram/dL) 15.2 Oxygen Content (18.0 - 22.0 % vol) 20.1 Patient On Oxygen Arterial FiO2 21.0 Laboratory Tests 06/04 0325 Chemistry Sodium (136 - 145 mmol/L) 145 Potassium (3.5 - 5.1 mmol/L) 4.2 Chloride (98 - 107 mmol/L) 115.0 H Carbon Dioxide (21 - 32 mmol/L) 20.0 L Anion Gap (10 - 20) 14.2 BUN (7 - 18 mg/dL) 26 H Creatinine (0.7 - 1.3 mg/dL) 1.30 Glomerular Filtr Rate (>=60 mL/min) 58 BUN/Creatinine Ratio (10 - 20) 20.0 Glucose (74 - 106 mg/dL) 91 Calcium (8.5 - 10.1 mg/dL) 7.9 L Radiology data: Recent Impressions: ULTRASOUND - [facility] 06/03 1704 Report Impression - Status: SIGNED Entered: 06/03/2022 1971 IMPRESSION: The right kidney is surgically absent. There is compensatory hypertrophy of the left ki dney. Otherwise the left kidney is sonographically unremarkable. Location: [facility] Impression By: [email or web address] - Sai Redman MD Diagnosis, Assessment Plan Consultants: psychiatry Free Text DxA P Notes Free text DxA P notes: 76-year-old man with: #Acute kidney failure #metabolic acidosis Crea 1.1 on 05/30, now 06/03 Crea 5.9, BUN 75 insert leyva catheter, strict I and O, check for urinary rentention US renal avoid nephrotoxins IVF nephrology consult urinalysis #urinary retention #hematuria hx. of BPH, currently on flomax, proscar leyva in situ urology consult #Sepsis, present on admission secondary to left lower lobe community-acquired pneumonia ---SIRS (T 101.0 F, HR 92). Influenza negative. SARS negative. ----CTA chest: Marked motion artifact, unremarka ble aorta. Lungs clear of infiltrates, effusion or congestion. No patholog ic adenopathy. -Received IV fluid hydration [NS x 2 L] -Blood culture x 2: No growth x 48 hours/contami nated -Rocephin 1 g IVPB Q24H. Cheryl thromycin 500 mg IVPB Q24H- finished course, monitor off abx -Duo nebs RT Q4H, Pulmicort 4 ml RT Q12H -Solumedrol 125 mg IVP x 1 -PRN: Robitussin -05/28: Initial BC with suspected contamination. R epeat collection. -BC x2, repeat: No growth #Hypertension -Coreg 12.5 mg PO BID -Hydralazine 10 mg IVP PRN SBP > 160 #Coronary artery disease -Coreg 12.5 mg PO BID. Plavi x 75 mg PO QD. Aspirin 81 mg PO QD. Atorvastatin 80 mg PO QD #Hypothyroidism -Levothyroxine 25 mcg PO QD #Benign prostatic hypertrophy -Tamsulosin 0.4 mg PO QD. Proscar 5 mg PO QD -Strict intake and output #Dementia -Behavioral health consult: Dr. Stubbs -Celexa 40 mg PO QD. Aricept 10 mg PO QD. Trazod one 25 mg PO QHS -As needed: Zyprexa 2.5 mg PO Q6H. appreciate ps [facility] recs -Fall precautions #PUI for COVID-19 -Informed by staff that patient's spouse is pres ent COVID-positive. -PCR: Negative -Decadron 6 mg IVP QD-Dc'd. Guaifenesin 600 mg p .o. every 12 hours prn. Azithromycin/Rocephin- completed -Isolation precautions- DC'd #Abdominal distention, mild secondary to gas -Simethicone 80 mg PO QD -Monitor -05/31, KUB: Negative Full code by default NOK: SpouseGiovanni, PPX: Lovenox- hold for now due to hematuria Quality: Gen Med Crit Care VTE Prophylaxis VTE prophylaxis initiated: yes (mechanical comp device) Current Medications Current medication review: I attest that the foregoing medication list in t he medical record is true, accurate, and complete to the best of my knowled ge. Advanced Care Plan 65 or Older Discussed with: surrogate decis. maker (full cod e) Electronically Signed by Adonis Womack NP on 10/19 at 1245 at 1330 RPT #:[id number] END OF REPORT 2022-06-03 12:16:00-00:00 [facility] ([facility]) Clinical Note REPORT#:[id number] REPORT STATUS: Signed DATE:06/03/22 TIME: 1216 PATIENT: KAYLA HO UNIT #: [id number] ROOM/BED: [address] : 47 AGE: 76 SEX: M ATTEND: Diogo Reynolds MD ADM AUTHOR: Lena Canela MD * ALL edits or amendments must be made on the el [employer]/computer document * Clinical Note Note: Renal Consult dictated Thank You Electronically Signed by Lena Canela MD on 0 06/03/22 at 1217 RPT #:[id number] END OF REPORT 2022-06-03 12:16:00-00:00 [id number] [facility] PATIENT NAME: KAYLA HO ADMIT DATE: 05/25/22 ACCOUNT NO: [id number] ROOM NO: [facility] AGE: 76 REPORT TYPE: CONSULTATION REPORT SEX: M DATE OF : 49 ADMITTING PHYSICIAN:Taiwo Reynolds MD ATTENDING PHYSICIAN:Taiwo Reynolds MD CONSULTATION DATE: INITIAL NEPHROLOGY CONSULTATION REASON FOR CONSULTATION: Acute kidney injury, el evated serum creatinine. HISTORY OF PRESENT ILLNESS: Mr. Ho is a 76-yea r-old male with a history of dementia, hyperlipidemia, hy pothyroidism, benign prostatic hypertrophy, coronary artery disease, who presented to the hospital be cause of some shortness of breath. He was sent here from his alf. I am being asked to see the patient because on laboratory testing today, his serum creatinine is 5.9. The patient's last serum creatin ine was checked on 05/30, and it was 1.1. On 05/28, it was 1.0 and on 05/26, it was 0.9; however, on 05/25, the serum creatinine was 1.2. The patient did undergo a CT of the chest w ith IV contrast on 05/25. The patient's lower abdomen does feel somewhat distended. The patient really cannot give much a history. He seems to be in an agitat ed state at this time. The patient did have blood cultu res drawn on admission and the blood culture showed coag-negative staph, which was reported as being could be contamination. The patient is being treated for pneumonia. PAST MEDICAL HISTORY: 1. Hypertension. 2. Coronary artery disease. 3. Dementia. 4. Benign prostatic hypertrophy. 5. Hyperlipidemia, as above. MEDICATIONS: As per APR, the patient is on Lovenox. He is getting D5 NS at 75. He is on trazodone, Seroquel, simethico ne, guaifenesin, budesonide, albuterol ipratropium, benzonatate, multivitamin, aspirin, Flomax, finasteride, fenofibrate, Aricept, Plavix , carvedilol, atorvastatin, levothyroxine, Protonix, melatonin. The patient has completed a course of azithromycin and also gotten some Rocephin. SOCIAL HISTORY: No smoking, no ETOH, no HIV risk factors, no IV drug abuse. PHYSICAL EXAMINATION: VITAL SIGNS: Blood pressure 155/81, pulse 82, re spirations 16, afebrile. GENERAL: The patient is agitated, not really coh erent. NECK: No increased JVD. CARDIOVASCULAR: Regular rhythm. LUNGS: Clear to auscultation bilaterally. ABDOMEN: Positive bowel sounds. The patient's lo wer abdomen seems to be PATIENT NAME: KAYLA HO 0 distended. The patient is wearing a diaper. EXTREMITIES: No edema. LABORATORY RESULTS: Hemogram is within normal li mits. Chemistry: Sodium 139, potassium 4.6, chloride 108, bicarbonate 16, BUN and creatinine 75 and 5.9 respectively, calcium 8.4. A urinalysis that was done on 05/25, shows trace protein, 0-2 red cells, 0-5 white cells. IMAGING STUDIES: Have been reviewed. IMPRESSION: 1. Acute kidney injury. 2. History of benign prostatic hypertrophy. 3. Coronary artery disease. 4. Hypertension. PLAN: The patient's serum creatinine has increased precipitously. Of note, the patient's last near normal creatinine was on , and there was no serum creatinine that was checked between 05/30 and 06/03. The patient's lower abdomen seems to be distended. Given the history of BPH, first and foremost a Leyva catheter should be placed to rule out obstructiv e nephropathy. I will also check a renal ultrasound as well. I agree with g iving the patient IV fluid in the meantime. Also in the di fferential is contrast-induced nephrotoxicity since he got the contrast on the and the serum cr eatinine did start to go up shortly thereafter. The patient's serum bicarbon ate is 16. I will check a blood gas to confirm if this is metabolic acidos is. Continue IV fluids. I am repeating the blood work again. Further workup will be based on results of the Leyva catheter placement. I have instructed the nurse to call me to notify me how much his urine output has yielded with place ment of the Leyva catheter. I will follow the patient with you. Thank you, Adonis Womack, for allowing me to participate in care of this patient with you. Dictated By: Lena Canela MD Date Dictated: 06/03/2022 12:16:44 Date Transcribed: 06/03/2022 19:45:53 SUNNI/FRANCOIS Receipt ID: [id number] Authenticated by Lena Canela MD On 06/16 04:09:06 PM at 0409 PATIENT NAME: KAYLA HO 0 2022-06-03 09:49:00-00:00 [facility] ([facility]) Hospitalist Progress Note REPORT#:[id number] REPORT STATUS: Signed DATE:06/03/22 TIME: 948 PATIENT: KAYLA HO UNIT #: [id number] ROOM/BED: [address] : 47 AGE: 76 SEX: M ATTEND: Diogo Reynolds MD ADM AUTHOR: Adonis Womack BIOLOGY MANAGER * ALL edits or amendments must be made on the el [employer]/computer document * Subjective Chief complaint: confused sitter at bedside on RA poor PO intake HPI: Mr. Ho is a 76-year-old man with history of de mentia, hypothyroidism, hyperlipidemia, benign prost atic hypertrophy, hypertension with coronary artery disease admitted from [facility] with reports of shortness of breath and cough. Review of Systems Unable to obtain due to: ams Objective General VS/I O: Vital Signs: Date Time Temp Pulse Resp B/P B/P Pulse O2 O2 F low FiO2 Mean Ox Delivery Rate 06/03 0802 97.3 82 16 155/81 106.0 06/03 0642 97.3 77 23 135/81 98.9 93 / 2335 97.5 138 18 153/83 106.5 94 Room air 06/02 2115 96 Room air 21 06/02 1910 98.2 67 18 141/86 104.5 94 06/02 1703 97.9 79 18 142/76 98.3 92 / 1700 98.6 112 124/75 91.5 100 PATIENT WEIGHT: Weight (lb): Weight (oz): Weight (kg): 120.000 Physical Exam General appearance: confused, alert, awake Head/Eyes: atraumatic, clear cornea, EOMI, normo cephalic, PERRL ENT: moist mucosal membranes, normal dentition, normal nose Neck: non-tender, supple/no meningismus, no JVD Cardiovascular: normal heart sounds, regular rat e rhythm, no murmur Respiratory: aerating well, clear to auscultatio n, symmetric expansion, no distress Abdomen: non-tender, normal bowel sounds, soft, no distention Extremities: decreased range of motion, normal capillary refill, no clubbing, no cyanosis, no edema Musculoskeletal: decreased ROM, no CVA tendernes s, no muscle spasm 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: disoriented, alert, face symmetrical, not answering questions Skin: dry, intact, normal color, normal temperat ure Psychiatry: unable to evaluate Results Findings/Data: Laboratory Tests 06/03 0738 Chemistry Sodium (136 - 145 mmol/L) 139 Potassium (3.5 - 5.1 mmol/L) 4.6 Chloride (98 - 107 mmol/L) 108.0 H Carbon Dioxide (21 - 32 mmol/L) 16.0 L Anion Gap (10 - 20) 19.6 BUN (7 - 18 mg/dL) 75 H Creatinine (0.7 - 1.3 mg/dL) 5.90 H Glomerular Filtr Rate (>=60 mL/min) 9 BUN/Creatinine Ratio (10 - 20) 12.6 Glucose (74 - 106 mg/dL) 131 H Calcium (8.5 - 10.1 mg/dL) 8.4 L Magnesium (1.8 - 2.4 mg/dL) 2.1 Laboratory Tests 06/03 0738 Hematology WBC (4.5 - 12.5 K/mm3) 12.4 RBC (4.0 - 5.8 mill/mm3) 4.38 Hgb (13.0 - 17.5 gram/dL) 13.7 Hct (42.0 - 52.0 %) 40.8 L MCV (80 - 98 fL) 93.2 MCH (27.0 - 33.0 picogram) 31.3 MCHC (33.0 - 36.0 gram/dL) 33.6 RDW (11.6 - 16.2 %) 13.1 RDW Std Deviation (37.0 - 51.0 fL) 44.8 Plt Count (150 - 450 K/mm3) 308 MPV (6.7 - 11.0 fL) 10.3 Neut % (Auto) (39.0 - 69.0 %) 84.7 H Lymph % (Auto) (25.0 - 55.0 %) 6.3 L [place] % (Auto) (0.0 - 10.0 %) 6.9 Eos % (Auto) (0.0 - 5.0 %) 1.3 Baso % (Auto) (0.0 - 1.0 %) 0.2 Neut # (Auto) (1.8 - 7.7 K/mm3) 10.49 H Lymph # (Auto) (1.0 - 5.0 K/mm3) 0.78 L [place] # (Auto) (0 - 0.8 K/mm3) 0.86 H Eos # (Auto) (0.0 - 0.5 K/mm3) 0.16 Baso # (Auto) (0.0 - 0.2 K/mm3) 0.02 Nucleated RBC % (0 - 0 %) 0.0 Nucleated RBCs # (Man) (0.0 - 0.1 K/mm3) 0.00 Diagnosis, Assessment Plan Consultants: psychiatry Free Text DxA P Notes Free text DxA P notes: 76-year-old man with: #Acute kidney failure #metabolic acidosis Crea 1.1 on 05/30, now 06/03 Crea 5.9, BUN 75 insert leyva catheter, strict I and O, check for urinary rentention US renal avoid nephrotoxins IVF nephrology consult urinalysis #Sepsis, present on admission secondary to left lower lobe community-acquired pneumonia ---SIRS (T 101.0 F, HR 92). Influenza negative. SARS negative. ----CTA chest: Marked motion artifact, unremarka ble aorta. Lungs clear of infiltrates, effusion or congestion. No patholog ic adenopathy. -Received IV fluid hydration [NS x 2 L] -Blood culture x 2: No growth x 48 hours/contami nated -Rocephin 1 g IVPB Q24H. Cheryl thromycin 500 mg IVPB Q24H- finished course, monitor off abx -Duo nebs RT Q4H, Pulmicort 4 ml RT Q12H -Solumedrol 125 mg IVP x 1 -PRN: Robitussin -05/28: Initial BC with suspected contamination. R epeat collection. -BC x2, repeat: No growth #Hypertension -Coreg 12.5 mg PO BID -Hydralazine 10 mg IVP PRN SBP > 160 #Coronary artery disease -Coreg 12.5 mg PO BID. Plavi x 75 mg PO QD. Aspirin 81 mg PO QD. Atorvastatin 80 mg PO QD #Hypothyroidism -Levothyroxine 25 mcg PO QD #Benign prostatic hypertrophy -Tamsulosin 0.4 mg PO QD. Proscar 5 mg PO QD -Strict intake and output #Dementia -Behavioral health consult: Dr. Stubbs -Celexa 40 mg PO QD. Aricept 10 mg PO QD. Trazod one 25 mg PO QHS -As needed: Zyprexa 2.5 mg PO Q6H. appreciate ps [facility] recs -Fall precautions #PUI for COVID-19 -Informed by staff that patient's spouse is pres ent COVID-positive. -PCR: Negative -Decadron 6 mg IVP QD-Dc'd. Guaifenesin 600 mg p .o. every 12 hours prn. Azithromycin/Rocephin- completed -Isolation precautions- DC'd #Abdominal distention, mild secondary to gas -Simethicone 80 mg PO QD -Monitor -05/31, KUB: Negative Full code by default NOK: Spouse, Giovanni Ho, PPX: Lovenox CM consult for placement [facility] Prophylaxis VTE prophylaxis initiated: yes (Lovenox) Current Medications Current medication review: I attest that the foregoing medication list in t he medical record is true, accurate, and complete to the best of my knowled ge. Advanced Care Plan 65 or Older Discussed with: surrogate decis. maker (full cod e) Electronically Signed by Adonis Womack NP on 09/18 at 1208 at 1708 RPT #:[id number] END OF REPORT 2022-06-02 11:19:00-00:00 [facility] ([facility]) Hospitalist Progress Note REPORT#:[id number] REPORT STATUS: Signed DATE:06/02/22 TIME: 1119 PATIENT: KAYLA HO UNIT #: [id number] ROOM/BED: [address] : 47 AGE: 76 SEX: M ATTEND: Diogo Reynolds MD ADM AUTHOR: Adonis Womack NP * ALL edits or amendments must be made on the [employer]/computer document * Subjective Chief complaint: confused somnolent sitter at bedside on RA HPI: Mr. Ho is a 76-year-old man with history of de mentia, hypothyroidism, hyperlipidemia, benign prost atic hypertrophy, hypertension with coronary artery disease admitted from [facility] with reports of shortness of breath and cough. Review of Systems All systems rev neg: except as noted Objective General VS/I O: Vital Signs: Date Time Temp Pulse Resp B/P B/P Pulse O2 O2 F low FiO2 Mean Ox Delivery Rate 06/02 1121 99.3 96 18 131/78 95.9 93 06/02 0914 98.4 96 18 131/84 99.4 93 06/02 0827 97 Room air 06/02 0429 97 Room air 21 06/02 0308 98.4 77 18 125/73 90.6 96 06/01 2259 99.5 66 18 133/81 98.3 96 06/01 2138 94 Room air 21 06/01 1911 98.8 64 18 138/86 103.1 94 06/01 1858 97.9 61 14 136/80 98.6 95 Room air 24 hour I O ending at 0700: 06/02 0700 06/01 1900 Intake Total 200 Output Total Balance 200 Intake, Oral 200 Number 1 Bowel Movements Number 2 Incontinent Voids PATIENT WEIGHT: Weight (lb): Weight (oz): Weight (kg): 120.000 Physical Exam General appearance: confused, lethargic, alert, awake Head/Eyes: atraumatic, clear cornea, EOMI, normo cephalic, PERRL ENT: moist mucosal membranes, normal dentition, normal nose Neck: non-tender, supple/no meningismus, no JVD Cardiovascular: normal heart sounds, regular rat e rhythm, no murmur Respiratory: aerating well, clear to auscultatio n, symmetric expansion, no distress Abdomen: non-tender, normal bowel sounds, soft, no distention Extremities: decreased range of motion, normal capillary refill, no clubbing, no cyanosis, no edema Musculoskeletal: decreased ROM, no CVA tendernes s, no muscle spasm 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: disoriented, alert, face symmetrical, not answering questions Skin: dry, intact, normal color, normal temperat ure Psychiatry: unable to evaluate Diagnosis, Assessment Plan Consultants: psychiatry Free Text DxA P Notes Free text DxA P notes: 76-year-old man with: #Sepsis, present on admission secondary to left lower lobe community-acquired pneumonia ---SIRS (T 101.0 F, HR 92). Influenza negative. SARS negative. ----CTA chest: Marked motion artifact, unremarka ble aorta. Lungs clear of infiltrates, effusion or congestion. No patholog ic adenopathy. -Received IV fluid hydration [NS x 2 L] -Blood culture x 2: No growth x 48 hours/contami nated -Rocephin 1 g IVPB Q24H. Cheryl thromycin 500 mg IVPB Q24H- finished course, monitor off abx -Duo nebs RT Q4H, Pulmicort 4 ml RT Q12H -Solumedrol 125 mg IVP x 1 -PRN: Robitussin -4/1: Initial BC with suspected contamination. R epeat collection. -BC x2, repeat: No growth #Hypertension -Coreg 12.5 mg PO BID -Hydralazine 10 mg IVP PRN SBP > 160 #Coronary artery disease -Coreg 12.5 mg PO BID. Plavi x 75 mg PO QD. Aspirin 81 mg PO QD. Atorvastatin 80 mg PO QD #Hypothyroidism -Levothyroxine 25 mcg PO QD #Benign prostatic hypertrophy -Tamsulosin 0.4 mg PO QD. Proscar 5 mg PO QD -Strict intake and output #Dementia -Behavioral health consult: Dr. Stubbs -Celexa 40 mg PO QD. Aricept 10 mg PO QD. Trazod one 25 mg PO QHS -As needed: Zyprexa 2.5 mg PO Q6H. appreciate ps [facility] recs -Fall precautions #PUI for COVID-19 -Informed by staff that patient's spouse is pres ent COVID-positive. -PCR: Negative -Decadron 6 mg IVP QD-Dc'd. Guaifenesin 600 mg p .o. every 12 hours prn. Azithromycin/Rocephin- completed -Isolation precautions- DC'd #Abdominal distention, mild secondary to gas -Simethicone 80 mg PO QD -Monitor -05/31, KUB: Negative Full code by default NOK: Spouse, Giovanni Ho, PPX: Lovenox consult for placement Quality: Gen Med Crit Care VTE Prophylaxis VTE prophylaxis initiated: yes (Lovenox) Current Medications Current medication review: I attest that the foregoing medication list in t he medical record is true, accurate, and complete to the best of my knowled ge. Advanced Care Plan 65 or Older Discussed with: surrogate decis. maker (full cod e) Electronically Signed by Adonis Womack NP on 08/19 at 1228 at 1704 RPT #:[id number] END OF REPORT 2022-06-01 09:49:00-00:00 [facility] ([facility]) Hospitalist Progress Note REPORT#:[id number] REPORT STATUS: Signed DATE:06/01/22 TIME: 09 PATIENT: KAYLA HO UNIT #: [id number] ROOM/BED: [address] : 47 AGE: 76 SEX: M ATTEND: Diogo Reynolds MD ADM AUTHOR: Adonis Womack NP * ALL edits or amendments must be made on the el [employer]/computer document * Subjective Chief complaint: confused sitter at bedside on RA HPI: Mr. Ho is a 76-year-old man with history of de mentia, hypothyroidism, hyperlipidemia, benign prost atic hypertrophy, hypertension with coronary artery disease admitted from [facility] with reports of shortness of breath and cough. Review of Systems Unable to obtain due to: ams Objective General VS/I O: Vital Signs: Date Time Temp Pulse Resp B/P B/P Pulse O2 O2 F low FiO2 Mean Ox Delivery Rate 06/01 1016 96 Room air 06/01 0425 98.6 58 18 128/75 92 96 Room air 05/31 2231 98.6 65 18 155/87 109.7 94 Room air 05/31 2055 97 Room air 21 05/31 1904 98.4 59 18 116/61 79.2 94 05/31 1652 98.2 73 18 112/72 85.2 93 Room air PATIENT WEIGHT: Weight (lb): Weight (oz): Weight (kg): 120.000 Physical Exam General appearance: alert, awake Head/Eyes: atraumatic, clear cornea, EOMI, normo cephalic, PERRL ENT: moist mucosal membranes, normal dentition, normal nose Neck: non-tender, supple/no meningismus, no JVD Cardiovascular: normal heart sounds, regular rat e rhythm, no murmur Respiratory: aerating well, clear to auscultatio n, symmetric expansion, no distress Abdomen: non-tender, normal bowel sounds, soft, no distention Extremities: decreased range of motion, normal capillary refill, no clubbing, no cyanosis, no edema Musculoskeletal: decreased ROM, no CVA tendernes s, no muscle spasm 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: disoriented, alert, face symmetrical, not answering questions Skin: dry, intact, normal color, normal temperat ure Psychiatry: unable to evaluate Diagnosis, Assessment Plan Consultants: psychiatry Free Text DxA P Notes Free text DxA P notes: 76-year-old man with: #Sepsis, present on admission secondary to left lower lobe community-acquired pneumonia ---SIRS (T 101.0 F, HR 92). Influenza negative. SARS negative. ----CTA chest: Marked motion artifact, unremarka ble aorta. Lungs clear of infiltrates, effusion or congestion. No patholog ic adenopathy. -Received IV fluid hydration [NS x 2 L] -Blood culture x 2: No growth x 48 hours/contami nated -Rocephin 1 g IVPB Q24H. Cheryl thromycin 500 mg IVPB Q24H- finished course, monitor off abx -Duo nebs RT Q4H, Pulmicort 4 ml RT Q12H -Solumedrol 125 mg IVP x 1 -PRN: Robitussin -05/28: Initial BC with suspected contamination. R epeat collection. -BC x2, repeat: No growth #Hypertension -Coreg 12.5 mg PO BID -Hydralazine 10 mg IVP PRN SBP > 160 #Coronary artery disease -Coreg 12.5 mg PO BID. Plavi x 75 mg PO QD. Aspirin 81 mg PO QD. Atorvastatin 80 mg PO QD #Hypothyroidism -Levothyroxine 25 mcg PO QD #Benign prostatic hypertrophy -Tamsulosin 0.4 mg PO QD. Proscar 5 mg PO QD -Strict intake and output #Dementia -Behavioral health consult: Dr. Stubbs -Celexa 40 mg PO QD. Aricept 10 mg PO QD. Trazod one 25 mg PO QHS -As needed: Zyprexa 2.5 mg PO Q6H. -Fall precautions #PUI for COVID-19 -Informed by staff that patient's spouse is pres ent COVID-positive. -PCR: Negative -Decadron 6 mg IVP QD-Dc'd. Guaifenesin 600 mg p .o. every 12 hours prn. Azithromycin/Rocephin- completed -Isolation precautions- DC'd #Abdominal distention, mild secondary to gas -Simethicone 80 mg PO QD -Monitor -05/31, KUB: Negative Full code by default NOK: Spouse, Giovanni Ho, PPX: Lovenox CM consult for placement Quality: Gen Med Crit Care VTE Prophylaxis VTE prophylaxis initiated: yes (Lovenox) Current Medications Current medication review: I attest that the foregoing medication list in t he medical record is true, accurate, and complete to the best of my knowled ge. Advanced Care Plan 65 or Older Discussed with: surrogate decis. maker (full cod e) Electronically Signed by Adonis Womack NP on 07/19 at 1246 at 0834 RPT #:[id number] END OF REPORT 2022-05-31 08:20:00-00:00 [facility] ([facility]) Hospitalist Progress Note REPORT#:[id number] REPORT STATUS: Signed DATE:05/31/22 TIME: 819 PATIENT: KAYLA HO UNIT #: [id number] ROOM/BED: [address] : 47 AGE: 76 SEX: M ATTEND: Diogo Reynolds MD ADM AUTHOR: Evon Dorado * ALL edits or amendments must be made on the [employer]/computer document * Subjective Chief complaint: Shortness of breath HPI: Mr. Ho is a 76-year-old man with history of de mentia, hypothyroidism, hyperlipidemia, benign prost atic hypertrophy, hypertension with coronary artery disease admitted from [facility] with reports of shortness of breath and cough. Review of Systems Unable to obtain due to: Due to cognitive impairment Objective General VS/I O: Vital Signs: Date Time Temp Pulse Resp B/P B/P Pulse O2 O2 F low FiO2 Mean Ox Delivery Rate 05/31 1138 98.4 69 19 115/75 88.4 94 Room air 05/31 1004 94 Room air 05/31 0802 98.1 78 19 159/85 109 97 Room air 05/31 0322 99.3 69 18 123/73 89.6 95 Room air 05/30 2354 97.7 66 16 155/86 109.0 95 05/30 2333 97.7 72 18 160/94 115.9 95 Room air 05/30 2245 95 Room air 21 05/30 2132 98.1 74 18 147/87 106.8 95 05/30 1525 98.1 70 20 103/66 78.3 94 Room air 24 hour I O ending at 0700: 05/31 0700 05/30 1900 Intake Total 900 Output Total Balance 900 Intake, Oral 900 Number 1 Bowel Movements PATIENT WEIGHT: Weight (lb): Weight (oz): Weight (kg): 120.000 Medications: Active Meds + DC'd Last 24 Hrs Trazodone HCl (DESYREL) 25 MG BEDTIME PO Diphenhydramine HCl (diphenhydrAMINE HCL) 25 MG ONCE ONE IM (DC) Haloperidol Lactate (HALDOL) 1 MG ONCE ONE IM (D C) Simethicone (SIMETHICONE) 80 MG Q12H PO Dexamethasone (DEXAMETHASONE) 6 MG DAILY IV Guaifenesin (HUMIBID L.A.) 600 MG Q12HR PO Budesonide (PULMICORT RESPULES 0.5MG/2ML) 4 ML R TQ12H NEB (CKD) Olanzapine (ZyPREXA Zydis) 2.5 MG Q6H PRN PRN PO Albuterol/Ipratropium (DUONEB) 3 ML RTQ4H INH Albuterol Sulfate (ALBUTEROL SULFATE) 2.5 MG RTQ 6H PRN PRN INH Benzonatate (BENZONATATE) 100 MG Q4H PRN PRN PO Enoxaparin Sodium (LOVENOX 40MG SYRINGE) 40 MG 1 700 SUBQ Hydralazine HCl (APRESOLINE) 10 MG Q2H PRN PRN I V Aspirin (ECOTRIN) 81 MG DAILY PO Atorvastatin Calcium (LIPITOR 40MG TAB) 80 MG DA HEIKE PO Carvedilol (COREG 12.5MG TAB) 12.5 MG BID PO Clopidogrel Bisulfate (PLAVIX 75MG TAB) 75 MG DA HEIKE PO Donepezil HCl (ARICEPT 10MG TAB) 10 MG DAILY PO Fenofibrate 145 MG DAILY PO Finasteride (PROSCAR 5MG TAB) 5 MG DAILY PO Multivitamins Therapeutic (THERAGRAN) 1 UDTAB DA HEIKE PO Tamsulosin HCl (FLOMAX 0.4MG CAPSULE) 0.4 MG CHETAN LY PO Levothyroxine Sodium (SYNTHROID) 25 MCG DAILY 06 00 PO Pantoprazole Sodium (PROTONIX) 20 MG DAILY@0600 PO Acetaminophen (TYLENOL EXTRA STRENGTH) 500 MG Q6 H PRN PRN PO Calcium Carbonate (TUMS 500MG) 1,000 MG Q6H PRN PRN PO Docusate Sodium (COLACE 100 MG CAPSULE) 100 MG B ID PRN PRN PO Melatonin (MELATONIN) 3 MG BEDTIME PRN PRN PO Physical Exam General appearance: confused, alert, awake, orie nted (x1) Head/Eyes: atraumatic, clear cornea, EOMI, normo cephalic, PERRL ENT: moist mucosal membranes, normal dentition, normal nose Neck: non-tender, supple/no meningismus, no JVD Cardiovascular: normal heart sounds, regular rat e rhythm, no murmur Respiratory: aerating well, clear to auscultatio n, symmetric expansion, no distress Abdomen: non-tender, normal bowel sounds, soft, no distention Extremities: decreased range of motion, normal capillary refill, no clubbing, no cyanosis, no edema Musculoskeletal: decreased ROM, no CVA tendernes s, no muscle spasm 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: alert, face symmetrical, not answerin g questions Skin: dry, intact, normal color, normal temperat ure Psychiatry: unable to evaluate Diagnosis, Assessment Plan Consultants: psychiatry Code status: full code Plan discussed with: collaborating MD Time spent: Time spent on patient care (minutes): 35 Free Text DxA P Notes Free text DxA P notes: 76-year-old man with: #Sepsis, present on admission secondary to left lower lobe community-acquired pneumonia ---SIRS (T 101.0 F, HR 92). Influenza negative. SARS negative. ----CTA chest: Marked motion artifact, unremarka ble aorta. Lungs clear of infiltrates, effusion or congestion. No patholog ic adenopathy. -Received IV fluid hydration [NS x 2 L] -Blood culture x 2: No growth x 48 hours/contami nated -Rocephin 1 g IVPB Q24H. Azithromycin 500 mg IVP B Q24H -Duo nebs RT Q4H, Pulmicort 4 ml RT Q12H -Solumedrol 125 mg IVP x 1 -PRN: Robitussin -05/28: Initial BC with suspected contamination. R epeat collection. -BC x2, repeat: No growth #Hypertension -Coreg 12.5 mg PO BID -Hydralazine 10 mg IVP PRN SBP > 160 #Coronary artery disease -Coreg 12.5 mg PO BID. Plavi x 75 mg PO QD. Aspirin 81 mg PO QD. Atorvastatin 80 mg PO QD #Hypothyroidism -Levothyroxine 25 mcg PO QD #Benign prostatic hypertrophy -Tamsulosin 0.4 mg PO QD. Proscar 5 mg PO QD -Strict intake and output #Dementia -Behavioral health consult: Dr. Stubbs -Celexa 40 mg PO QD. Aricept 10 mg PO QD. Trazod one 25 mg PO QHS -As needed: Zyprexa 2.5 mg PO Q6H. Ativan 1 mg I ANESTHESIA ATTENDING Q4H -Fall precautions #PUI for COVID-19 -Informed by staff that patient's spouse is pres ent COVID-positive. -PCR: Negative -Decadron 6 mg IVP QD-Dc'd. Guaifenesin 600 mg p .o. every 12 hours prn. Azithromycin/Rocephin- completed -Isolation precautions- DC'd #Abdominal distention, mild secondary to gas -Simethicone 80 mg PO QD -Monitor -05/31, KUB: Negative Full code by default NOK: Spouse, Giovanni Ho, PPX: Lovenox Disposition: Currently satting 95 to 99% on room air. Found asleep. Sitter at bedside indicating some aggression last night, w as administered Haldol and Benadryl. Notified by CM that spouse is unable t o care for patient at home; therefore, pending placement. Electronically Signed by Evon Dorado on 0 05/31/22 at 1200 at 1720 RPT #:[id number] END OF REPORT 2022-05-30 08:16:00-00:00 [facility] ([facility]) Hospitalist Progress Note REPORT#:[id number] REPORT STATUS: Signed DATE:05/30/22 TIME: 0816 PATIENT: KAYLA HO UNIT #: [id number] ROOM[facility]BED: [facility]- : 47 AGE: 76 SEX: M ATTEND: Diogo Reynolds MD ADM AUTHOR: Evon Dorado * ALL edits or amendments must be made on the [employer] document * Subjective Chief complaint: Shortness of breath HPI: Mr. Ho is a 76-year-old man with history of de mentia, hypothyroidism, hyperlipidemia, benign prost atic hypertrophy, hypertension with coronary artery disease admitted from [facility] with reports of shortness of breath and cough. Review of Systems All systems rev neg: except as noted Objective General VS/I O: Vital Signs: Date Time Temp Pulse Resp B/P B/P Pulse O2 O2 F low FiO2 Mean Ox Delivery Rate 05/30 0828 95 Room air 21 04/ 0703 98.4 58 20 122/71 87.7 95 Room air 04/ 0313 98.4 61 18 126/85 98.5 99 04/02 2317 98.1 56 18 112/64 80.5 96 04/02 2200 96 Nasal 3 32 cannula 04/ 1905 97.5 61 18 134/72 92.3 95 04/02 1756 98.1 61 20 130/66 87.7 96 04/02 1641 97.5 61 16 115/63 79.9 97 04/02 1052 97.5 63 21 114/56 75.3 96 PATIENT WEIGHT: Weight (lb): Weight (oz): Weight (kg): 120.000 Medications: Active Meds + DC'd Last 24 Hrs Simethicone (SIMETHICONE) 80 MG Q12H PO Dexamethasone (DEXAMETHASONE) 6 MG DAILY IV Guaifenesin (HUMIBID L.A.) 600 MG Q12HR PO Azithromycin (ZITHROMAX) 500 MG 2100 PO (DC) Budesonide (PULMICORT RESPULES 0.5MG/2ML) 4 ML R TQ12H NEB (CKD) Olanzapine (ZyPREXA Zydis) 2.5 MG Q6H PRN PRN PO Albuterol/Ipratropium (DUONEB) 3 ML RTQ4H INH Albuterol Sulfate (ALBUTEROL SULFATE) 2.5 MG RTQ 6H PRN PRN INH Benzonatate (BENZONATATE) 100 MG Q4H PRN PRN PO Ceftriaxone Sodium (ROCEPHIN) 1,000 MG Q24H IV ( DC) Sodium Chloride (SODIUM CHLORIDE 0.9% PF) 10 ML Enoxaparin Sodium (LOVENOX 40MG SYRINGE) 40 MG 1 700 SUBQ Hydralazine HCl (APRESOLINE) 10 MG Q2H PRN PRN I V Aspirin (ECOTRIN) 81 MG DAILY PO Atorvastatin Calcium (LIPITOR 40MG TAB) 80 MG DA HEIKE PO Carvedilol (COREG 12.5MG TAB) 12.5 MG BID PO Clopidogrel Bisulfate (PLAVIX 75MG TAB) 75 MG DA HEIKE PO Donepezil HCl (ARICEPT 10MG TAB) 10 MG DAILY PO Fenofibrate 145 MG DAILY PO Finasteride (PROSCAR 5MG TAB) 5 MG DAILY PO Multivitamins Therapeutic (THERAGRAN) 1 UDTAB DA HEIKE PO Tamsulosin HCl (FLOMAX 0.4MG CAPSULE) 0.4 MG CHETAN LY PO Levothyroxine Sodium (SYNTHROID) 25 MCG DAILY 06 00 PO Pantoprazole Sodium (PROTONIX) 20 MG DAILY@0600 PO Acetaminophen (TYLENOL EXTRA STRENGTH) 500 MG Q6 H PRN PRN PO Calcium Carbonate (TUMS 500MG) 1,000 MG Q6H PRN PRN PO Docusate Sodium (COLACE 100 MG CAPSULE) 100 MG B ID PRN PRN PO Melatonin (MELATONIN) 3 MG BEDTIME PRN PRN PO Physical Exam General appearance: confused, alert, awake, orie nted (x1) Head/Eyes: atraumatic, clear cornea, EOMI, normo cephalic, PERRL ENT: moist mucosal membranes, normal dentition, normal nose Neck: non-tender, supple/no meningismus, no JVD Cardiovascular: normal heart sounds, regular rat e rhythm, no murmur Respiratory: aerating well, clear to auscultatio n, symmetric expansion, no distress Abdomen: non-tender, normal bowel sounds, soft, no distention Extremities: decreased range of motion, normal capillary refill, no clubbing, no cyanosis, no edema Musculoskeletal: decreased ROM, no CVA tendernes s, no muscle spasm 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: alert, face symmetrical, not answerin g questions Skin: dry, intact, normal color, normal temperat ure Psychiatry: unable to evaluate Results Findings/Data: Laboratory Tests 05/30 0540 Chemistry Sodium (136 - 145 mmol/L) 140 Potassium (3.5 - 5.1 mmol/L) 3.6 Chloride (98 - 107 mmol/L) 107.0 Carbon Dioxide (21 - 32 mmol/L) 21.0 Anion Gap (10 - 20) 15.6 BUN (7 - 18 mg/dL) 18 Creatinine (0.7 - 1.3 mg/dL) 1.10 Glomerular Filtr Rate (>=60 mL/min) > 60 BUN/Creatinine Ratio (10 - 20) 16.8 Glucose (74 - 106 mg/dL) 79 Calcium (8.5 - 10.1 mg/dL) 8.7 Laboratory Tests 05/30 0541 Hematology WBC (4.5 - 12.5 K/mm3) 7.9 RBC (4.0 - 5.8 mill/mm3) 4.34 Hgb (13.0 - 17.5 gram/dL) 13.5 Hct (42.0 - 52.0 %) 39.9 L MCV (80 - 98 fL) 91.9 MCH (27.0 - 33.0 picogram) 31.1 MCHC (33.0 - 36.0 gram/dL) 33.8 RDW (11.6 - 16.2 %) 12.5 RDW Std Deviation (37.0 - 51.0 fL) 42.3 Plt Count (150 - 450 K/mm3) 235 MPV (6.7 - 11.0 fL) 10.4 Neut % (Auto) (39.0 - 69.0 %) 71.3 H Lymph % (Auto) (25.0 - 55.0 %) 17.2 L [place] % (Auto) (0.0 - 10.0 %) 9.5 Eos % (Auto) (0.0 - 5.0 %) 1.1 Baso % (Auto) (0.0 - 1.0 %) 0.3 Neut # (Auto) (1.8 - 7.7 K/mm3) 5.63 Lymph # (Auto) (1.0 - 5.0 K/mm3) 1.36 [place] # (Auto) (0 - 0.8 K/mm3) 0.75 Eos # (Auto) (0.0 - 0.5 K/mm3) 0.09 Baso # (Auto) (0.0 - 0.2 K/mm3) 0.02 Nucleated RBC % (0 - 0 %) 0.0 Nucleated RBCs # (Man) (0.0 - 0.1 K/mm3) 0.00 Results: labs reviewed Diagnosis, Assessment Plan Consultants: psychiatry Free Text DxA P Notes Free text DxA P notes: 76-year-old man with: #Sepsis, present on admission secondary to left lower lobe community-acquired pneumonia ---SIRS (T 101.0 F, HR 92). Influenza negative. SARS negative. ----CTA chest: Marked motion artifact, unremarka ble aorta. Lungs clear of infiltrates, effusion or congestion. No patholog ic adenopathy. -Received IV fluid hydration [NS x 2 L] -Blood culture x 2: No growth x 48 hours/contami nated -Rocephin 1 g IVPB Q24H. Azithromycin 500 mg IVP B Q24H -Duo nebs RT Q4H, Pulmicort 4 ml RT Q12H -Solumedrol 125 mg IVP x 1 -PRN: Robitussin -05/28: Initial BC with suspected contamination. R epeat collection. -BC x2, repeat: No growth #Hypertension -Coreg 12.5 mg PO BID -Hydralazine 10 mg IVP PRN SBP > 160 #Coronary artery disease -Coreg 12.5 mg PO BID. Plavi x 75 mg PO QD. Aspirin 81 mg PO QD. Atorvastatin 80 mg PO QD #Hypothyroidism -Levothyroxine 25 mcg PO QD #Benign prostatic hypertrophy -Tamsulosin 0.4 mg PO QD. Proscar 5 mg PO QD -Strict intake and output #Dementia -Behavioral health consult: Dr. Stubbs -Celexa 40 mg PO QD. Aricept 10 mg PO QD. -As needed: Zyprexa 2.5 mg PO Q6H. Ativan 1 mg I ANESTHESIA ATTENDING Q4H -Fall precautions #PUI for COVID-19 -Informed by staff that patient's spouse is pres ent COVID-positive. -PCR: Negative -Decadron 6 mg IVP QD. Guaifenesin 600 mg p.o. e very 12 hours. Azithromycin/ Rocephin -Isolation precautions- DC'd #Abdominal distention, mild secondary to gas -Simethicone 80 mg PO Q12H -Monitor Full code by default NOK: Spouse, Giovanni Ho, PPX: Lovenox Disposition: Currently satting 95 to 99% on room air. Found sitting up in bed tolerating breakfast. Responsive to greeting, re peated good morning. When I ask how he is doing states "I am well." Sitter a t bedside, no combative/ aggressive behavior last night. Discussed and of care with psychiatry. Likely DC tomorrow. CM consult return to [facility] or prior outpatient residence. Electronically Signed by Evon Dorado on 0 05/30/22 at 1012 at 1604 RPT #:[id number] END OF REPORT 2022-05-29 07:26:00-00:00 [facility] ([facility] Hospitalist Progress Note REPORT#:[id number] REPORT STATUS: Signed DATE:05/29/22 TIME: 725 PATIENT: KAYLA HO UNIT #: [id number] ROOM/BED: [address] : 47 AGE: 76 SEX: M ATTEND: Diogo Reynolds MD ADM AUTHOR: Evon Dorado * ALL edits or amendments must be made on the [employer]/computer document * Subjective Chief complaint: Shortness of breath HPI: Mr. Ho is a 76-year-old man with history of de mentia, hypothyroidism, hyperlipidemia, benign prost atic hypertrophy, hypertension with coronary artery disease admitted from [facility] with reports of shortness of breath and cough. Review of Systems Unable to obtain due to: Due to impaired cognition Objective General VS/I O: Vital Signs: Date Time Temp Pulse Resp B/P B/P Pulse O2 O2 F low FiO2 Mean Ox Delivery Rate 05/29 1052 97.5 63 21 114/56 75.3 96 05/29 0852 Nasal 3 cannula 05/29 0757 75 95 05/29 0716 98.1 72 19 106/61 76.0 96 05/29 0323 98.2 75 16 168/88 114.5 97 Nasal cannula 05/282 Nasal 2 cannula 05/28 2008 97.7 65 20 103/62 75.5 94 05/28 1601 98.1 66 21 128/75 92.5 95 24 hour I O ending at 0700: 04/02 0700 04/ 1900 Intake Total 120.00 Output Total Balance 120.00 Intake, IV 20.00 Intake, Oral 100 Number 1 Incontinent Voids PATIENT WEIGHT: Weight (lb): Weight (oz): Weight (kg): 120.000 Medications: Active Meds + DC'd Last 24 Hrs Simethicone (SIMETHICONE) 80 MG Q12H PO Dexamethasone (DEXAMETHASONE) 6 MG DAILY IV Guaifenesin (HUMIBID L.A.) 600 MG Q12HR PO Azithromycin (ZITHROMAX) 500 MG 2100 PO Dexamethasone Sodium Phosphate (HEXADROL) 10 MG ONCE IV (DC) Lorazepam (ATIVAN) 0.5 MG Q4H PRN PRN IV (DC) Simethicone (SIMETHICONE) 80 MG Q6HR PO (DC) Budesonide (PULMICORT RESPULES 0.5MG/2ML) 4 ML R TQ12H NEB (CKD) Olanzapine (ZyPREXA Zydis) 2.5 MG Q6H PRN PRN PO Albuterol/Ipratropium (DUONEB) 3 ML RTQ4H INH Albuterol Sulfate (ALBUTEROL SULFATE) 2.5 MG RTQ 6H PRN PRN INH Benzonatate (BENZONATATE) 100 MG Q4H PRN PRN PO Lorazepam (ATIVAN) 1 MG Q4H PRN PRN IV (DC) Ceftriaxone Sodium (ROCEPHIN) 1,000 MG Q24H IV Sodium Chloride (SODIUM CHLORIDE 0.9% PF) 10 ML Enoxaparin Sodium (LOVENOX 40MG SYRINGE) 40 MG 1 700 SUBQ Hydralazine HCl (APRESOLINE) 10 MG Q2H PRN PRN I V Aspirin (ECOTRIN) 81 MG DAILY PO Atorvastatin Calcium (LIPITOR 40MG TAB) 80 MG DA HEIKE PO Carvedilol (COREG 12.5MG TAB) 12.5 MG BID PO Clopidogrel Bisulfate (PLAVIX 75MG TAB) 75 MG DA HEIKE PO Donepezil HCl (ARICEPT 10MG TAB) 10 MG DAILY PO Fenofibrate 145 MG DAILY PO Finasteride (PROSCAR 5MG TAB) 5 MG DAILY PO Multivitamins Therapeutic (THERAGRAN) 1 UDTAB DA HEIKE PO Tamsulosin HCl (FLOMAX 0.4MG CAPSULE) 0.4 MG DA HEIKE PO Levothyroxine Sodium (SYNTHROID) 25 MCG DAILY 06 00 PO Pantoprazole Sodium (PROTONIX) 20 MG DAILY@0600 PO Acetaminophen (TYLENOL EXTRA STRENGTH) 500 MG Q6 H PRN PRN PO Calcium Carbonate (TUMS 500MG) 1,000 MG Q6H PRN PRN PO Docusate Sodium (COLACE 100 MG CAPSULE) 100 MG B ID PRN PRN PO Guaifenesin/Dextromethorphan (ROBITUSSIN-DM) 10 ML Q4H PRN PRN PO (DC) Melatonin (MELATONIN) 3 MG BEDTIME PRN PRN PO Physical Exam General appearance: altered mental status, chronically ill appearing, confused, Verbal speaking to self, per sitter audible nons pecific conversation to self Head/Eyes: atraumatic, clear cornea, EOMI, normo cephalic, PERRL ENT: moist mucosal membranes, normal dentition, normal nose Neck: non-tender, supple/no meningismus, no JVD Cardiovascular: normal heart sounds, regular rat e rhythm, no murmur Respiratory: decreased breath sounds (bibasilar) , symmetric expansion, no distress Abdomen: non-tender, normal bowel sounds, soft, no distention Extremities: decreased range of motion, no clubb ing, no cyanosis, no edema Musculoskeletal: decreased ROM, no CVA tendernes s, no muscle spasm 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: alert, face symmetrical, not answerin g questions Skin: dry, intact, normal color, normal temperat ure Psychiatry: unable to evaluate Diagnosis, Assessment Plan Consultants: psychiatry Code status: full code Plan discussed with: collaborating MD Time spent: Time spent on patient care (minutes): 35 Free Text DxA P Notes Free text DxA P notes: 76-year-old man with: #Sepsis, present on admission secondary to left lower lobe community-acquired pneumonia ---SIRS (T 101.0 F, HR 92). Influenza negative. SARS negative. ----CTA chest: Marked motion artifact, unremarka ble aorta. Lungs clear of infiltrates, effusion or congestion. No patholog ic adenopathy. -Received IV fluid hydration [NS x 2 L] -Blood culture x 2: No growth x 48 hours/contami nated -Rocephin 1 g IVPB Q24H. Azithromycin 500 mg IVP B Q24H -Duo nebs RT Q4H, Pulmicort 4 ml RT Q12H -Solumedrol 125 mg IVP x 1 -PRN: Robitussin -05/28: Initial BC with suspected contamination. R epeat collection. -BC x2, repeat: Pending #Hypertension -Coreg 12.5 mg PO BID -Hydralazine 10 mg IVP PRN SBP > 160 #Coronary artery disease -Coreg 12.5 mg PO BID. Plavi x 75 mg PO QD. Aspirin 81 mg PO QD. Atorvastatin 80 mg PO QD #Hypothyroidism -Levothyroxine 25 mcg PO QD #Benign prostatic hypertrophy -Tamsulosin 0.4 mg PO QD. Proscar 5 mg PO QD -Strict intake and output #Dementia -Behavioral health consult: Dr. Stubbs -Celexa 40 mg PO QD. Aricept 10 mg PO QD. -As needed: Zyprexa 2.5 mg PO Q6H. Ativan 1 mg I ANESTHESIA ATTENDING Q4H -Fall precautions #PUI for COVID-19 -Informed by staff that patient's spouse is pres ent COVID-positive. -PCR: Pending -Decadron 6 mg IVP QD. Guaifenesin 600 mg p.o. e very 12 hours. Azithromycin/ Rocephin -Isolation precautions #Abdominal distention, mild secondary to gas -Simethicone 80 mg PO Q12H -Monitor Full code by default NOK: Spouse, Giovanni Ho, PPX: Lovenox Disposition: D satting in 94 % on room air, decreased breath sounds with resolved wheezing/rhonchi. Sitter at bedside. Verbally sp eaking to self today, incoherent. Not physically combative overnight. Electronically Signed by Evon Dorado on 0 05/29/22 at 1243 at 1730 RPT #:[id number] END OF REPORT 2022-05-28 07:47:00-00:00 [facility] ([facility]) Hospitalist Progress Note REPORT#:[id number] REPORT STATUS: Signed DATE:05/28/22 TIME: 07 PATIENT: KAYLA HO UNIT #: [id number] ROOM/BED: [address] : 47 AGE: 76 SEX: M ATTEND: Diogo Reynolds MD ADM AUTHOR: Evon Dorado * ALL edits or amendments must be made on the [employer]/computer document * Subjective Chief complaint: Shortness of breath HPI: Mr. Ho is a 76-year-old man with history of de mentia, hypothyroidism, hyperlipidemia, benign prost atic hypertrophy, hypertension with coronary artery disease admitted from [facility] with reports of shortness of breath and cough. Review of Systems Unable to obtain due to: Due to impaired cognition Objective General VS/I O: Vital Signs: Date Time Temp Pulse Resp B/P B/P Pulse O2 O2 F low FiO2 Mean Ox Delivery Rate 05/28 0557 98 Nasal 2 28 cannula 05/28 0422 Nasal 2 cannula 05/28 0023 98.6 75 14 125/79 94 97 05/27 1701 82 05/27 1659 118/64 82 98 05/27 1517 98.9 81 22 138/82 103 96 Room air 05/27 0840 99 Nasal 4 36 cannula 24 hour I O ending at 0700: 05/28 0700 05/27 1900 Intake Total Output Total Balance Number 8 Bowel Movements Number 4 Incontinent Voids PATIENT WEIGHT: Weight (lb): Weight (oz): Weight (kg): 120.000 Medications: Active Meds + DC'd Last 24 Hrs Budesonide (PULMICORT RESPULES 0.5MG/2ML) 4 ML R TQ12H NEB (CKD) Olanzapine (ZyPREXA Zydis) 2.5 MG Q6H PRN PRN PO Albuterol/Ipratropium (DUONEB) 3 ML RTQ4H INH Methylprednisolone Sodium Succinate (Solu-MEDROL 125 MG/2 ML) 125 MG ONCE ONE IV (DC) Albuterol Sulfate (ALBUTEROL SULFATE) 2.5 MG RTQ 6H PRN PRN INH Benzonatate (BENZONATATE) 100 MG Q4H PRN PRN PO Lorazepam (ATIVAN) 1 MG Q4H PRN PRN IV Ceftriaxone Sodium (ROCEPHIN) 1,000 MG Q24H IV Sodium Chloride (SODIUM CHLORIDE 0.9% PF) 10 ML Azithromycin (ZITHROMAX) 500 MG Q24H IV Sodium Chloride (SODIUM CHLORIDE 0.9%) 250 ML Enoxaparin Sodium (LOVENOX 40MG SYRINGE) 40 MG 1 700 SUBQ Albuterol/Ipratropium (DUONEB) 3 ML RTQ6H INH (D C) Hydralazine HCl (APRESOLINE) 10 MG Q2H PRN PRN I V Aspirin (ECOTRIN) 81 MG DAILY PO Atorvastatin Calcium (LIPITOR 40MG TAB) 80 MG DA HEIKE PO Carvedilol (COREG 12.5MG TAB) 12.5 MG BID PO Citalopram Hydrobromide (celeXA 40MG TAB) 40 MG DAILY PO (DC) Clopidogrel Bisulfate (PLAVIX 75MG TAB) 75 MG DA HEIKE PO Donepezil HCl (ARICEPT 10MG TAB) 10 MG DAILY PO Fenofibrate 145 MG DAILY PO Finasteride (PROSCAR 5MG TAB) 5 MG DAILY PO Multivitamins Therapeutic (THERAGRAN) 1 UDTAB DA HEIKE PO Tamsulosin HCl (FLOMAX 0.4MG CAPSULE) 0.4 MG CHETAN LY PO Levothyroxine Sodium (SYNTHROID) 25 MCG DAILY 06 00 PO Pantoprazole Sodium (PROTONIX) 20 MG DAILY@0600 PO Acetaminophen (TYLENOL EXTRA STRENGTH) 500 MG Q6 H PRN PRN PO Calcium Carbonate (TUMS 500MG) 1,000 MG Q6H PRN PRN PO Docusate Sodium (COLACE 100 MG CAPSULE) 100 MG B ID PRN PRN PO Guaifenesin/Dextromethorphan (ROBITUSSIN-DM) 10 ML Q4H PRN PRN PO Melatonin (MELATONIN) 3 MG BEDTIME PRN PRN PO Simethicone (SIMETHICONE) 80 MG Q6H PRN PRN PO Physical Exam General appearance: altered mental status, chronically ill appearing, confused, alert, awake, Nonverbal Head/Eyes: atraumatic, clear cornea, EOMI, normo cephalic, PERRL ENT: moist mucosal membranes, normal dentition, normal nose Neck: non-tender, supple/no meningismus, no JVD Cardiovascular: normal heart sounds, regular rat e rhythm, no murmur Respiratory: decreased breath sounds (bibasilar) , symmetric expansion, no distress Abdomen: non-tender, normal bowel sounds, soft, no distention Extremities: decreased range of motion, no clubb ing, no cyanosis, no edema Musculoskeletal: decreased ROM, no CVA tendernes s, no muscle spasm 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: alert, face symmetrical, not answerin g questions Skin: dry, intact, normal color, normal temperat ure Psychiatry: unable to evaluate Results Findings/Data: Laboratory Tests 05/29 811 Chemistry Sodium (136 - 145 mmol/L) 139 Potassium (3.5 - 5.1 mmol/L) 3.9 Chloride (98 - 107 mmol/L) 106.0 Carbon Dioxide (21 - 32 mmol/L) 22.0 Anion Gap (10 - 20) 14.9 BUN (7 - 18 mg/dL) 12 Creatinine (0.7 - 1.3 mg/dL) 1.00 Glomerular Filtr Rate (>=60 mL/min) > 60 BUN/Creatinine Ratio (10 - 20) 12.6 Glucose (74 - 106 mg/dL) 103 Calcium (8.5 - 10.1 mg/dL) 8.8 Laboratory Tests 05/29 811 Hematology WBC (4.5 - 12.5 K/mm3) 7.1 RBC (4.0 - 5.8 mill/mm3) 4.45 Hgb (13.0 - 17.5 gram/dL) 14.3 Hct (42.0 - 52.0 %) 41.3 L MCV (80 - 98 fL) 92.8 MCH (27.0 - 33.0 picogram) 32.1 MCHC (33.0 - 36.0 gram/dL) 34.6 RDW (11.6 - 16.2 %) 12.7 RDW Std Deviation (37.0 - 51.0 fL) 43.3 Plt Count (150 - 450 K/mm3) 199 MPV (6.7 - 11.0 fL) 10.1 Neut % (Auto) (39.0 - 69.0 %) 81.8 H Lymph % (Auto) (25.0 - 55.0 %) 8.9 L [place] % (Auto) (0.0 - 10.0 %) 8.5 Eos % (Auto) (0.0 - 5.0 %) 0.1 Baso % (Auto) (0.0 - 1.0 %) 0.3 Neut # (Auto) (1.8 - 7.7 K/mm3) 5.80 Lymph # (Auto) (1.0 - 5.0 K/mm3) 0.63 L [place] # (Auto) (0 - 0.8 K/mm3) 0.60 Eos # (Auto) (0.0 - 0.5 K/mm3) 0.01 Baso # (Auto) (0.0 - 0.2 K/mm3) 0.02 Add Manual Diff NO Nucleated RBC % (0 - 0 %) 0.0 Nucleated RBCs # (Man) (0.0 - 0.1 K/mm3) 0.00 Radiology data: Recent Impressions: RADIOLOGY - XR CHEST 1 V 05/27 1124 Report Impression - Status: SIGNED Entered: 05/27/2022 1140 IMPRESSION: No acute infiltrates, effusion or congestion. Solano boptimal inspiration. Markedly distended air-filled stomach. Impression By: [email or web address] - Renato Padilla M.D. Results: labs reviewed Diagnosis, Assessment Plan Consultants: psychiatry Code status: full code Plan discussed with: collaborating MD Time spent: Time spent on patient care (minutes): 35 Free Text DxA P Notes Free text DxA P notes: 76-year-old man with: #Sepsis, present on admission secondary to left lower lobe community-acquired pneumonia ---SIRS (T 101.0 F, HR 92). Influenza negative. SARS negative. ----CTA chest: Marked motion artifact, unremarka ble aorta. Lungs clear of infiltrates, effusion or congestion. No patholog ic adenopathy. -Received IV fluid hydration [NS x 2 L] -Blood culture x 2: No growth x 48 hours/contami nated -Rocephin 1 g IVPB Q24H. Azithromycin 500 mg IVP B Q24H -Duo nebs RT Q4H, Pulmicort 4 ml RT Q12H -Solumedrol 125 mg IVP x 1 -PRN: Robitussin -05/28: Initial BC with suspected contamination. R epeat collection. -BC x2, repeat: Pending #Hypertension -Coreg 12.5 mg PO BID -Hydralazine 10 mg IVP PRN SBP > 160 #Coronary artery disease -Coreg 12.5 mg PO BID. Plavi x 75 mg PO QD. Aspirin 81 mg PO QD. Atorvastatin 80 mg PO QD #Hypothyroidism -Levothyroxine 25 mcg PO QD #Benign prostatic hypertrophy -Tamsulosin 0.4 mg PO QD. Proscar 5 mg PO QD -Strict intake and output #Dementia -Behavioral health consult: Dr. Stubbs -Celexa 40 mg PO QD. Aricept 10 mg PO QD. -As needed: Zyprexa 2.5 mg PO Q6H. Ativan 1 mg I ANESTHESIA ATTENDING Q4H -Fall precautions Full code by default NOK: Spouse, Giovanni Ho, PPX: Lovenox Disposition: BC x2 negative. Maintaining sats on room air, 96 to 100%. Decreased breath sounds, wheezing/rhonchi resolv ed. Repeat imaging negative pulmonary cai; however, markedly distended air- filled stomach. KUB ordered/ simethicone every 6 hours. Sitter at bed side. Not as aggressive/combative last night. Ativan as needed. Electronically Signed by Evon Dorado on 0 05/28/22 at 1025 at 1536 RPT #:[id number] END OF REPORT 2022-05-27 11:06:00-00:00 [facility] ([facility] Hospitalist Progress Note REPORT#:[id number] REPORT STATUS: Signed DATE:05/27/22 TIME: 1106 PATIENT: KAYLA HO UNIT #: [id number] ROOM/BED: [place] [address] : 47 AGE: 76 SEX: M ATTEND: Diogo Reynolds MD ADM AUTHOR: Evon Dorado * ALL edits or amendments must be made on the [employer]/computer document * Subjective Chief complaint: Shortness of breath HPI: Mr. Ho is a 76-year-old man with history of de mentia, hypothyroidism, hyperlipidemia, benign prost atic hypertrophy, hypertension with coronary artery disease admitted from [facility] with reports of shortness of breath and cough. Review of Systems All systems rev neg: except as noted Objective General VS/I O: Vital Signs: Date Time Temp Pulse Resp B/P B/P Pulse O2 O2 F low FiO2 Mean Ox Delivery Rate 05/27 0840 99 Nasal 4 36 cannula 05/27 0745 94.1 84 22 162/97 0.0 90 05/27 0645 98.3 80 20 142/80 100 96 Room air 05/27 0330 98.7 80 18 133/70 91 98 Room air 05/26 2334 98.5 75 20 137/71 93 95 Room air 05/26 2242 98.6 05/26 1936 72 18 122/59 80 100 Room air 05/26 1744 97.7 71 20 145/88 106.9 97 05/26 1225 78 147/65 92.1 99 24 hour I O ending at 0700: 05/27 0700 05/26 1900 Intake Total Output Total 1 Balance -1 Number 1 Incontinent Voids Output, Stool 1 PATIENT WEIGHT: Weight (lb): Weight (oz): Weight (kg): 120.000 Medications: Active Meds + DC'd Last 24 Hrs Budesonide (PULMICORT RESPULES 0.5MG/2ML) 4 ML R TQ12H NEB (UNV) Albuterol/Ipratropium (DUONEB) 3 ML RTQ4H INH (U NVr) Methylprednisolone Sodium Succinate (Solu-MEDROL 125 MG/2 ML) 125 MG ONCE ONE IV (UNV) Budesonide (PULMICORT RESPULES 0.5MG/2ML) 2 ML O NCE ONE NEB (DC) Albuterol Sulfate (ALBUTEROL SULFATE) 2.5 MG RTQ 6H PRN PRN INH Benzonatate (BENZONATATE) 100 MG Q4H PRN PRN PO Lorazepam (ATIVAN) 1 MG Q4H PRN PRN IV Ceftriaxone Sodium (ROCEPHIN) 1,000 MG Q24H IV Sodium Chloride (SODIUM CHLORIDE 0.9% PF) 10 ML Azithromycin (ZITHROMAX) 500 MG Q24H IV Sodium Chloride (SODIUM CHLORIDE 0.9%) 250 ML Enoxaparin Sodium (LOVENOX 40MG SYRINGE) 40 MG 1 700 SUBQ Albuterol/Ipratropium (DUONEB) 3 ML RTQ6H INH (D Cr) Hydralazine HCl (APRESOLINE) 10 MG Q2H PRN PRN I V Aspirin (ECOTRIN) 81 MG DAILY PO Atorvastatin Calcium (LIPITOR 40MG TAB) 80 MG DA HEIKE PO Carvedilol (COREG 12.5MG TAB) 12.5 MG BID PO Citalopram Hydrobromide (celeXA 40MG TAB) 40 MG DAILY PO (CKD) Clopidogrel Bisulfate (PLAVIX 75MG TAB) 75 MG DA HEIKE PO Donepezil HCl (ARICEPT 10MG TAB) 10 MG DAILY PO Fenofibrate 145 MG DAILY PO Finasteride (PROSCAR 5MG TAB) 5 MG DAILY PO Multivitamins Therapeutic (THERAGRAN) 1 UDTAB DA HEIKE PO Tamsulosin HCl (FLOMAX 0.4MG CAPSULE) 0.4 MG CHETAN LY PO Levothyroxine Sodium (SYNTHROID) 25 MCG DAILY 06 00 PO Pantoprazole Sodium (PROTONIX) 20 MG DAILY@0600 PO Acetaminophen (TYLENOL EXTRA STRENGTH) 500 MG Q6 H PRN PRN PO Calcium Carbonate (TUMS 500MG) 1,000 MG Q6H PRN PRN PO Docusate Sodium (COLACE 100 MG CAPSULE) 100 MG B ID PRN PRN PO Guaifenesin/Dextromethorphan (ROBITUSSIN-DM) 10 ML Q4H PRN PRN PO Melatonin (MELATONIN) 3 MG BEDTIME PRN PRN PO Simethicone (SIMETHICONE) 80 MG Q6H PRN PRN PO Physical Exam General appearance: altered mental status, chronically ill appearing, confused, alert, awake, Nonverbal Head/Eyes: atraumatic, clear cornea, EOMI, normo cephalic, PERRL ENT: moist mucosal membranes, normal dentition, normal nose Neck: non-tender, supple/no meningismus, no JVD Cardiovascular: normal heart sounds, regular rat e rhythm, no murmur Respiratory: decreased breath sounds (bi basilar), rhonchi, wheezing, symmetric expansion, no distress Abdomen: non-tender, normal bowel sounds, soft, no distention Extremities: decreased range of motion, no clubb ing, no cyanosis, no edema Musculoskeletal: decreased ROM, no CVA tendernes s, no muscle spasm 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: alert, face symmetrical, not answerin g questions Skin: dry, intact, normal color, normal temperat ure Psychiatry: unable to evaluate Results Findings/Data: Laboratory Tests 05/27 0701 Chemistry POC Glucose (74 - 106 mg/dL) 74 Diagnosis, Assessment Plan Consultants: psychiatry Code status: full code Plan discussed with: collaborating MD Time spent: Time spent on patient care (minutes): 35 Free Text DxA P Notes Free text DxA P notes: 76-year-old man with: #Sepsis, present on admission secondary to left lower lobe community-acquired pneumonia ---SIRS (T 101.0 F, HR 92). Influenza negative. SARS negative. ----CTA chest: Marked motion artifact, unremarka ble aorta. Lungs clear of infiltrates, effusion or congestion. No patholog ic adenopathy. -Received IV fluid hydration [NS x 2 L] -Blood culture x 2: No growth x 48 hours -Rocephin 1 g IVPB Q24H. Azithromycin 500 mg IVP B Q24H -Duo nebs RT Q4H, Pulmicort 4 ml RT Q12H -Solumedrol 125 mg IVP x 1 -PRN: Robitussin #Hypertension -Coreg 12.5 mg PO BID -Hydralazine 10 mg IVP PRN SBP > 160 #Coronary artery disease -Coreg 12.5 mg PO BID. Plavi x 75 mg PO QD. Aspirin 81 mg PO QD. Atorvastatin 80 mg PO QD #Hypothyroidism -Levothyroxine 25 mcg PO QD #Benign prostatic hypertrophy -Tamsulosin 0.4 mg PO QD. Proscar 5 mg PO QD -Strict intake and output #Dementia -Celexa 40 mg PO QD. Aricept 10 mg PO QD. -Fall precautions Full code by default NOK: Spouse, Giovanni Ho, PPX: Lovenox Disposition: BC x2 negative. Maintaining sats on room air, 96 to 100%; however noted increased wheezing/rho nchi today. Staff notes that patient was aggressive and combative last night, Ativan ordered for ass istance. Electronically Signed by Evon Dorado on 0 05/27/22 at 1119 at 1621 RPT #:[id number] END OF REPORT 2022-05-26 13:19:00-00:00 [facility] ([facility]) Hospitalist Progress Note REPORT#:[id number] REPORT STATUS: Signed DATE:05/26/22 TIME: 1319 PATIENT: KAYLA HO UNIT #: [id number] [facility] AGE: 76 SEX: M ATTEND: Diogo Reynolds MD ADM AUTHOR: Evon Dorado * ALL edits or amendments must be made on the [employer]/computer document * Subjective Chief complaint: Shortness of breath HPI: Mr. Ho is a 76-year-old man with history of de mentia, hypothyroidism, hyperlipidemia, benign prost atic hypertrophy, hypertension with coronary artery disease admitted from [facility] with reports of shortness of breath and cough. Review of Systems Unable to obtain due to: Impaired cognition Objective General VS/I O: Vital Signs: Date Time Temp Pulse Resp B/P B/P Pulse O2 O2 F low FiO2 Mean Ox Delivery Rate 05/26 1225 78 147/65 92.1 99 05/26 0831 97 Room air 21 05/26 0648 98.0 66 24 137/70 92 100 05/26 0433 66 152/83 96 05/25 2341 66 18 139/74 100 05/25 1920 69 22 121/60 96 05/25 1621 66 127/51 76 95 Room air PATIENT WEIGHT: Weight (lb): Weight (oz): Weight (kg): 120.000 Medications: Active Meds + DC'd Last 24 Hrs Ceftriaxone Sodium (ROCEPHIN) 1,000 MG Q24H IV Sodium Chloride (SODIUM CHLORIDE 0.9% PF) 10 ML Azithromycin (ZITHROMAX) 500 MG Q24H IV Sodium Chloride (SODIUM CHLORIDE 0.9%) 250 ML Enoxaparin Sodium (LOVENOX 40MG SYRINGE) 40 MG 1 700 SUBQ Albuterol/Ipratropium (DUONEB) 3 ML RTQ6H INH Hydralazine HCl (APRESOLINE) 10 MG Q2H PRN PRN I V Aspirin (ECOTRIN) 81 MG DAILY PO Atorvastatin Calcium (LIPITOR 40MG TAB) 80 MG DA HEIKE PO Carvedilol (COREG 12.5MG TAB) 12.5 MG BID PO Citalopram Hydrobromide (celeXA 40MG TAB) 40 MG DAILY PO (CKD) Clopidogrel Bisulfate (PLAVIX 75MG TAB) 75 MG DA HEIKE PO Donepezil HCl (ARICEPT 10MG TAB) 10 MG DAILY PO Fenofibrate 145 MG DAILY PO Finasteride (PROSCAR 5MG TAB) 5 MG DAILY PO Multivitamins Therapeutic (THERAGRAN) 1 UDTAB DA HEIKE PO Tamsulosin HCl (FLOMAX 0.4MG CAPSULE) 0.4 MG CHETAN LY PO Levothyroxine Sodium (SYNTHROID) 25 MCG DAILY 06 00 PO Pantoprazole Sodium (PROTONIX) 20 MG DAILY@0600 PO Acetaminophen (TYLENOL EXTRA STRENGTH) 500 MG Q6 H PRN PRN PO Calcium Carbonate (TUMS 500MG) 1,000 MG Q6H PRN PRN PO Docusate Sodium (COLACE 100 MG CAPSULE) 100 MG B ID PRN PRN PO Guaifenesin/Dextromethorphan (ROBITUSSIN-DM) 10 ML Q4H PRN PRN PO Melatonin (MELATONIN) 3 MG BEDTIME PRN PRN PO Simethicone (SIMETHICONE) 80 MG Q6H PRN PRN PO Physical Exam General appearance: alert, awake, oriented, no a cute distress, no respiratory distress Head/Eyes: atraumatic, EOMI, normocephalic ENT: moist mucosal membranes, normal dentition, normal nose Neck: non-tender, supple/no meningismus, no JVD Cardiovascular: normal heart sounds, regular rat e rhythm, no murmur Respiratory: decreased breath sounds (bibasilar) , clear to auscultation, symmetric expansion, no distress Abdomen: non-tender, soft, no distention Extremities: decreased range of motion, no clubb ing, no cyanosis, no edema Musculoskeletal: decreased ROM, no CVA tendernes s, no muscle spasm 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 Influenza negative. SARS negative. ----CTA chest: Marked motion artifact, unremarka ble aorta. Lungs clear of infiltrates, effusion or congestion. No patholog ic adenopathy. -Received IV fluid hydration [NS x 2 L] -Blood culture x 2: No growth -Rocephin 1 g IVPB Q24H. Azithromycin 500 mg IVP B Q24H -Duo nebs RT Q6H -PRN: Robitussin #Hypertension -Coreg 12.5 mg PO BID -Hydralazine 10 mg IVP PRN SBP > 160 #Coronary artery disease -Coreg 12.5 mg PO BID. Plavi x 75 mg PO QD. Aspirin 81 mg PO QD. Atorvastatin 80 mg PO QD #Hypothyroidism -Levothyroxine 25 mcg PO QD #Benign prostatic hypertrophy -Tamsulosin 0.4 mg PO QD. Proscar 5 mg PO QD -Strict intake and output #Dementia -Celexa 40 mg PO QD. Aricept 10 mg PO QD. -Fall precautions Full code by default NOK: Spouse, Giovanni Ho, PPX: Lovenox Disposition: BC x2 negative. Maintaining sats on room air, 96 to 100%. Dc'd; however, repeat psychiatric evaluation required prior to acceptance back to [facility]. Psychiatry consulted. Electronically Signed by Evon Dorado on 0 05/26/22 at 1322 at 3500 RPT #:[id number] END OF REPORT 2022-05-25 10:24:00-00:00 [facility] ([facility]) Hospitalist Progress Note REPORT#:[id number] REPORT STATUS: Signed DATE:05/25/22 TIME: 1024 PATIENT: KAYLA HO UNIT #: [id number] ROOM/BED: [place] [id number] : 47 AGE: 76 SEX: M ATTEND: Diogo Reynolds MD ADM AUTHOR: Evon Dorado * ALL edits or amendments must be made on the el [employer]/computer document * Subjective Chief complaint: Shortness of breath HPI: Mr. Ho is a 76-year-old man with history of de mentia, hypothyroidism, hyperlipidemia, benign prost atic hypertrophy, hypertension with coronary artery disease admitted from [facility] with reports of shortness of breath and cough. Review of Systems Unable to obtain due to: Due to cognitive impairment Objective General Medications: Active Meds + DC'd Last 24 Hrs Ceftriaxone Sodium (ROCEPHIN) 1,000 MG Q24H IV Sodium Chloride (SODIUM CHLORIDE 0.9% PF) 10 ML Azithromycin (ZITHROMAX) 500 MG Q24H IV Sodium Chloride (SODIUM CHLORIDE 0.9%) 250 ML Enoxaparin Sodium (LOVENOX 40MG SYRINGE) 40 MG 1 700 SUBQ Aspirin (ECOTRIN) 81 MG DAILY PO Atorvastatin Calcium (LIPITOR 40MG TAB) 80 MG DA HEIKE PO Carvedilol (COREG 12.5MG TAB) 12.5 MG BID PO Citalopram Hydrobromide (celeXA 40MG TAB) 40 MG DAILY PO (CKD) Clopidogrel Bisulfate (PLAVIX 75MG TAB) 75 MG DA HEIKE PO Donepezil HCl (ARICEPT 10MG TAB) 10 MG DAILY PO Fenofibrate 145 MG DAILY PO Finasteride (PROSCAR 5MG TAB) 5 MG DAILY PO Multivitamins Therapeutic (THERAGRAN) 1 UDTAB DA HEIKE PO Tamsulosin HCl (FLOMAX 0.4MG CAPSULE) 0.4 MG CHETAN LY PO Levothyroxine Sodium (SYNTHROID) 25 MCG DAILY 06 00 PO Pantoprazole Sodium (PROTONIX) 20 MG DAILY@0600 PO Acetaminophen (TYLENOL EXTRA STRENGTH) 500 MG Q6 H PRN PRN PO Albuterol Sulfate (ALBUTEROL SULFATE) 2.5 MG RTQ 6H PRN PRN INH Calcium Carbonate (TUMS 500MG) 1,000 MG Q6H PRN PRN PO Docusate Sodium (COLACE 100 MG CAPSULE) 100 MG B ID PRN PRN PO Guaifenesin/Dextromethorphan (ROBITUSSIN-DM) 10 ML Q4H PRN PRN PO Melatonin (MELATONIN) 3 MG BEDTIME PRN PRN PO Simethicone (SIMETHICONE) 80 MG Q6H PRN PRN PO Iopamidol (ISOVUE-370) 0 .STK-MED ONE .ROUTE (DC ) Acetaminophen (TYLENOL EXTRA STRENGTH) 1,000 MG X1ED STA PO (DC) Azithromycin (ZITHROMAX) 500 MG X1ED STA IV (DC) Sodium Chloride (SODIUM CHLORIDE 0.9%) 250 ML Ceftriaxone Sodium (ROCEPHIN) 1,000 MG X1ED STA IV (DC) Sodium Chloride (SODIUM CHLORIDE 0.9% PF) 10 ML Sodium Chloride (SODIUM CHLORIDE 0.9%) 2,000 ML X1ED STA IV (DC) Physical Exam General appearance: confused, alert, awake, no a cute distress, no respiratory distress Head/Eyes: atraumatic, EOMI, normocephalic ENT: moist mucosal membranes, normal dentition, normal nose Neck: non-tender, supple/no meningismus, no JVD Cardiovascular: normal heart sounds, regular rat e rhythm, no murmur Respiratory: decreased breath sounds (bibasilar) , clear to auscultation, symmetric expansion, no distress Abdomen: non-tender, soft, no distention Extremities: decreased range of motion, no clubb ing, no cyanosis, no edema Musculoskeletal: decreased ROM, no CVA tendernes s, no muscle spasm 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: alert, face symmetrical, not answerin g questions Skin: dry, intact, normal color Psychiatry: unable to evaluate Results Findings/Data: Laboratory Tests 05/25 05/25 0105 0105 Chemistry Sodium (136 - 145 mmol/L) 139 Potassium (3.5 - 5.1 mmol/L) 3.6 Chloride (98 - 107 mmol/L) 106.0 Carbon Dioxide (21 - 32 mmol/L) 24.0 Anion Gap (10 - 20) 12.6 BUN (7 - 18 mg/dL) 17 Creatinine (0.7 - 1.3 mg/dL) 1.20 Glomerular Filtr Rate (>=60 mL/min) > 60 BUN/Creatinine Ratio (10 - 20) 14.8 Glucose (74 - 106 mg/dL) 88 Lactic Acid (0.4 - 1.9 mmol/L) 0.7 Calcium (8.5 - 10.1 mg/dL) 9.0 Total Bilirubin (0.0 - 1.0 mg/dL) 1.60 H Direct Bilirubin (0.0 - 0.20 mg/dL) 0.60 H AST (15 - 37 IUnit/L) 33 ALT (12 - 78 IUnit/L) 24 Total Alk Phosphatase (45 - 117 IUnit/L) 63 Troponin I (0 - 45 pg/mL) 10.820 Total Protein (6.4 - 8.2 gram/dL) 7.0 Albumin (3.4 - 5.0 g/dL) 3.9 Globulin (2.7 - 4.2 gram/dL) 3.1 Albumin/Globulin Ratio (0.75 - 1.50) 1.3 Laboratory Tests 05/25 0105 Hematology WBC (4.5 - 12.5 K/mm3) 8.5 RBC (4.0 - 5.8 mill/mm3) 4.72 Hgb (13.0 - 17.5 gram/dL) 14.9 Hct (42.0 - 52.0 %) 44.7 MCV (80 - 98 fL) 94.7 MCH (27.0 - 33.0 picogram) 31.6 MCHC (33.0 - 36.0 gram/dL) 33.3 RDW (11.6 - 16.2 %) 12.9 RDW Std Deviation (37.0 - 51.0 fL) 44.0 Plt Count (150 - 450 K/mm3) 199 MPV (6.7 - 11.0 fL) 10.8 Neut % (Auto) (39.0 - 69.0 %) 85.1 H Lymph % (Auto) (25.0 - 55.0 %) 4.9 L [place] % (Auto) (0.0 - 10.0 %) 5.6 Eos % (Auto) (0.0 - 5.0 %) 3.7 Baso % (Auto) (0.0 - 1.0 %) 0.5 Neut # (Auto) (1.8 - 7.7 K/mm3) 7.26 Lymph # (Auto) (1.0 - 5.0 K/mm3) 0.42 L [place] # (Auto) (0 - 0.8 K/mm3) 0.48 Eos # (Auto) (0.0 - 0.5 K/mm3) 0.32 Baso # (Auto) (0.0 - 0.2 K/mm3) 0.04 Nucleated RBC % (0 - 0 %) 0.0 Nucleated RBCs # (Man) (0.0 - 0.1 K/mm3) 0.00 Laboratory Tests 05/25 0305 Other Body Source POC Nasal Influenza A (Negative) Negative POC Nasal Influenza B (Negative) Negative Laboratory Tests 05/25 0305 Serology SARS-CoV-2 Ag (Rapid) (NEGATIVE) NEGATIVE Laboratory Tests 05/25 0105 Urines Urine Color (YELLOW) YELLOW Urine Appearance (CLEAR) CLEAR Urine pH (5.0 - 8.0) 6.0 Ur Specific [place] (1.001 - 1.035) 1.022 Urine Protein (NEGATIVE mg/dL) 10 (Trace) H Urine Glucose (UA) (NEGATIVE mg/dL) NEGATIVE Urine Ketones (NEGATIVE mg/dL) NEGATIVE Urine Blood (NEGATIVE mg/dL) Negative Urine Nitrite (NEGATIVE) NEGATIVE Urine Bilirubin (NEGATIVE mg/dL) NEGATIVE Urine Urobilinogen (NEGATIVE mg/dL) Normal Ur Leukocyte Esterase (NEGATIVE Gilma/uL) NEGATIV E Urine RBC (0 - 5 #/HPF) 0-2 Urine WBC (0 - 5 per HPF) 0-5 Ur Epithelial Cells (FEW per HPF) None seen Urine Bacteria (NONE #/HPF) NONE SEEN Urine Mucus (FEW #/LPF) FEW Radiology data: Recent Impressions: RADIOLOGY - XR CHEST 1 V 05/25 0049 Report Impression - Status: SIGNED Entered: 05/25/2022 0111 IMPRESSION: Probable atelectatic changes versus less likely pneumonia medially at the left lung base and patchy interstitial infil trate and mild elevation left hemidiaphragm Lung volume is shallow limiting assessment Prominence of the aortic knob. Cannot entirely e xclude aneurysmal dilatation of the thoracic aorta. Impression By: [email or web address] - Mamie la M.D. CAT SCAN - CT CHEST W/CONTRAST 05/25 0450 Report Impression - Status: SIGNED Entered: 05/25/2022 0713 IMPRESSION: Markedly motion limited study especially for the pulmonary arteries with extensive artifact limiting evaluation conner matt if there is suspicion for pulmonary embolism in recommend re peat exam using PE protocol for further evaluation. Unremarkable ao rta. Lungs are clear of infiltrates, effusion or congestion. No patho logic adenopathy. Impression By: [email or web address] - Renato Padilla M.D. Results: labs reviewed Diagnosis, Assessment Plan Code status: full code (by default) Plan discussed with: collaborating MD Time spent: Time spent on patient care (minutes): 35 Free Text DxA P Notes Free text DxA P notes: 76-year-old man with: #Sepsis, present on admission secondary to left lower lobe community-acquired pneumonia ---SIRS (T 101.0 F, HR 92). Influenza negative. SARS negative. ----CTA chest: Marked motion artifact, unremarka ble aorta. Lungs clear of infiltrates, effusion or congestion. No patholog ic adenopathy. -Received IV fluid hydration [NS x 2 L] -Blood culture x 2: Pending -Rocephin 1 g IVPB Q24H. Azithromycin 500 mg IVP B Q24H -Duo nebs RT Q6H -PRN: Robitussin #Hypertension -Coreg 12.5 mg PO BID -Hydralazine 10 mg IVP PRN SBP > 160 #Coronary artery disease -Coreg 12.5 mg PO BID. Plavi x 75 mg PO QD. Aspirin 81 mg PO QD. Atorvastatin 80 mg PO QD #Hypothyroidism -Levothyroxine 25 mcg PO QD #Benign prostatic hypertrophy -Tamsulosin 0.4 mg PO QD. Proscar 5 mg PO QD -Strict intake and output #Dementia -Celexa 40 mg PO QD. Aricept 10 mg PO QD. -Fall precautions Full code by default NOK: Spouse, Giovanni Ho, PPX: Lovenox Disposition: Pending BC x2. Improved saturation level, 96%; however maintains bibasilar decreased lung sounds. Admitte d ability to cough and expectorate due to dementia. Duo nebs scheduled. Electronically Signed by Evon Dorado on 0 05/25/22 at 1122 at 1859 RPT #:[id number] END OF REPORT 2022-05-25 04:31:00-00:00 [facility] ([facility]) Hospitalist History Physical REPORT#:[id number] REPORT STATUS: Signed DATE:05/25/22 TIME: 043 PATIENT: KAYLA HO UNIT #: [id number] ROOM/BED: [facility] : 47 AGE: 76 SEX: M ATTEND: Yessenia Osborn MD ADM AUTHOR: Klaudia Osborn MD * ALL edits or amendments must be made on the [employer]/computer document * History of Present Illness HPI Chief complaint: Shortness of breath PCP: PCP: No Primary or Family Physician HPI: Patient seen and evaluated in ER bed 9. History is obtained from the chart and the ER staff as patient has dementia and not able to give any information. 76-year-old man with history of dementia, hypothyroidism, hyperlipidemia, benign prostatic hypertrophy, hypertension with coronar y artery disease brought into the ER from [facility] with reports of sh ortness of breath and cough. Upon arrival temperature is 101, blood pressure 164/82, heart rate 92 satting 95 % on room air. Lactic acid is 0.7. CBC is unrema rkable. Chemistry is also unremarkable. Total bilirubin is 1.6. Chest x-ra y shows atelectasis and possible left lung base pneumonia. Blood cultures were obtained. He received 2 L of normal saline, 500 mg azithromycin, 1000 mg of ceftriaxone, 1000 mg of Tylenol. He has been admitted for further manage ment of left lower lobe community-acquired pneumonia with sepsis. History Past medical history: Reports: Coronary artery disease, Dementia, Hype rtension. Additional medical history: Hyperlipidemia, benign prostatic hypertrophy Additional surgical history: Cholecystectomy based on surgical scar Additional family history: Unable to obtain Smoking status for patients 13 years old or olde r: Unknown,if ever smoked Medication/Allergy-Vaccine Hx Medications: Home Medications: Medication Dose/Rte/Freq Days Qty Entered Last Max Daily Dose Reviewed LEVOTHYROXINE 25 MCG PO 05/25/22 (SYNTHROID) DAILY 0600 0434 Strength: 25 MCG TAB ATORVASTATIN (LIPITOR) 80 MG PO DAILY 05/16/22 Strength: 80 MG TAB 204 CARVEDILOL (COREG) 12.5 MG PO BID 05/16/22 Strength: 12.5 MG TAB 204 CLOPIDOGREL (PLAVIX) 75 MG PO DAILY 05/16/22 Strength: 75 MG TAB 204 DONEPEZIL (ARICEPT) 10 MG PO DAILY 05/16/22 Strength: 10 MG TAB 204 ESCITALOPRAM (LEXAPRO) 20 MG PO DAILY 05/16/22 Strength: 20 MG TAB 204 FENOFIBRATE 145 MG PO DAILY 05/16/22 Strength: 145 MG TAB 204 FINASTERIDE (PROSCAR) 5 MG PO DAILY 05/16/22 Strength: 5 MG TAB 2042 OMEPRAZOLE ER 20 MG PO DAILY 05/16/22 Strength: 20 MG CAP.DR 2043 TAMSULOSIN ER (FLOMAX) 0.4 MG PO DAILY 05/16/22 Strength: 0.4 MG CAP.SR.24H 2043 ASPIRIN EC (ECOTRIN) 81 MG PO DAILY 05/16/22 Strength: 81 MG TAB.EC 2043 MAGNESIUM OXIDE 500 MG PO DAILY 05/16/22 Strength: 500 MG TAB 2043 MULTIVITAMIN 1 TAB PO DAILY 05/16/22 (MULTIPLE VITAMIN) 2044 Strength: 1 TAB TAB Current Hospital Medications: Anti-Infective Agents Sig/Fletcher Start time Last Medication Dose Route Stop Time Status Admin Azithromycin 500 MG X1ED STA 05/25 0043 DC 04/28 9 (ZITHROMAX) IV 05/25 0142 0123 Sodium Chloride 250 ML (SODIUM CHLORIDE 0.9%) Ceftriaxone Sodium 1,000 MG X1ED STA 05/25 0043 DC 05/25 (ROCEPHIN) IV 05/25 004 0123 Sodium Chloride 10 ML (SODIUM CHLORIDE 0.9% PF) Autonomic Drugs Sig/Fletcher Start time Last Medication Dose Route Stop Time Status Admin Donepezil HCl 10 MG DAILY 05/25 899 AC (ARICEPT 10MG TAB) PO 06/24 0859 Blood Formation,Coagulation Sig/Fletcher Start time Last Medication Dose Route Stop Time Status Admin Clopidogrel Bisulfate 75 MG DAILY 05/25 899 AC (PLAVIX 75MG TAB) PO 06/24 0859 Cardiovascular Drugs Sig/Fletcher Start time Last Medication Dose Route Stop Time Status Admin Atorvastatin Calcium 80 MG DAILY 05/25 899 AC (LIPITOR 40MG TAB) PO 06/24 0859 Carvedilol 12.5 MG BID 05/25 899 AC (COREG 12.5MG TAB) PO 06/24 0859 Fenofibrate 145 MG DAILY 05/25 899 AC PO 06/24 0859 Tamsulosin HCl 0.4 MG DAILY 05/25 899 UNV (FLOMAX 0.4MG PO 06/24 0859 CAPSULE) Central Nervous System Agents Sig/Fletcher Start time Last Medication Dose Route Stop Time Status Admin Aspirin 81 MG DAILY 05/25 899 AC (ECOTRIN) PO 06/24 0859 Escitalopram Oxalate 20 MG DAILY 05/25 899 UNV r (LEXAPRO 20MG TAB PO 06/24 0859 (NF)) Acetaminophen 1,000 MG X1ED STA 05/25 0319 DC 0 05/25 (TYLENOL EXTRA PO 05/25 0320 0335 STRENGTH) Electrolytic, Caloric, And Cori Sig/Fletcher Start time Last Medication Dose Route Stop Time Status Admin Sodium Chloride 2,000 ML X1ED STA 05/25 0042 DC 05/25 (SODIUM CHLORIDE IV 05/25 0043 0124 0.9%) Gastrointestinal Drugs Sig/Fletcher Start time Last Medication Dose Route Stop Time Status Admin Omeprazole 20 MG DAILY 05/25 0900 UNVr (PriLOSEC 20MG CAP PO 06/24 0859 (NF)) Hormones And Synthetic Substit Sig/Fletcher Start time Last Medication Dose Route Stop Time Status Admin Levothyroxine Sodium 25 MCG DAILY 0600 05/25 06 00 UNV (SYNTHROID) PO 06/24 0559 Miscellaneous Therapeutic Agen Sig/Fletcher Start time Last Medication Dose Route Stop Time Status Admin Finasteride 5 MG DAILY 05/25 09 UNV (PROSCAR 5MG TAB) PO 06/24 0859 Vitamins Sig/Fletcher Start time Last Medication Dose Route Stop Time Status Admin Multivitamins 1 UDTAB DAILY 05/25 0900 UNV Therapeutic PO 06/24 0859 (THERAGRAN) Allergies: Coded Allergies: No Known Allergies (05/16/22) Unable to obtain: past surgi jessica history, family history, smoking history, social history Unobtainable due to: dementia Review of Systems Unable to obtain due to: Dementia Objective General VS/I O: Vital Signs: Date Time Temp Pulse Resp B/P B/P Pulse O2 O2 F low FiO2 Mean Ox Delivery Rate 05/25 0333 86 18 155/70 98 95 Room air 05/25 0128 94 05/25 0037 101.0 92 17 164/82 109 95 Room air 24 hour I O ending at 0700: 05/25 0700 05/24 1900 Intake Total Output Total Balance Patient 120 kg Weight Weight Estimated Measurement Method PATIENT WEIGHT: Weight (lb): Weight (oz): Weight (kg): 120.000 Medications: Active Meds + DC'd Last 24 Hrs Aspirin (ECOTRIN) 81 MG DAILY PO Atorvastatin Calcium (LIPITOR 40MG TAB) 80 MG DA HEIKE PO Carvedilol (COREG 12.5MG TAB) 12.5 MG BID PO Clopidogrel Bisulfate (PLAVIX 75MG TAB) 75 MG DA HEIKE PO Donepezil HCl (ARICEPT 10MG TAB) 10 MG DAILY PO Escitalopram Oxalate (LEXAPRO 20MG TAB (NF)) 20 MG DAILY PO (UNVr) Fenofibrate 145 MG DAILY PO Finasteride (PROSCAR 5MG TAB) 5 MG DAILY PO Multivitamins Therapeutic (THERAGRAN) 1 UDTAB DA HEIKE PO (UNV) Omeprazole (PriLOSEC 20MG CAP (NF)) 20 MG DAILY PO (UNVr) Tamsulosin HCl (FLOMAX 0.4MG CAPSULE) 0.4 MG CHETAN LY PO (UNV) Levothyroxine Sodium (SYNTHROID) 25 MCG DAILY 06 00 PO Acetaminophen (TYLENOL EXTRA STRENGTH) 1,000 MG X1ED STA PO (DC) Azithromycin (ZITHROMAX) 500 MG X1ED STA IV (DC) Sodium Chloride (SODIUM CHLORIDE 0.9%) 250 ML Ceftriaxone Sodium (ROCEPHIN) 1,000 MG X1ED STA IV (DC) Sodium Chloride (SODIUM CHLORIDE 0.9% PF) 10 ML Sodium Chloride (SODIUM CHLORIDE 0.9%) 2,000 ML X1ED STA IV (DC) Physical Exam General appearance: chronically ill appearing, c onfused, alert, awake Head/Eyes: atraumatic, EOMI, normocephalic ENT: moist mucosal membranes, normal dentition, normal nose Neck: non-tender, supple/no meningismus, no JVD Cardiovascular: normal heart sounds, regular rat e rhythm, no murmur Respiratory: decreased breat h sounds (based), clear to auscultation, no distress Abdomen: non-tender, soft, no distention Extremities: decreased range of motion, no clubb ing, no cyanosis, no edema Musculoskeletal: decreased ROM, no CVA tendernes s, no muscle spasm 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: alert, face symmetrical, not answerin g questions Skin: dry, intact, normal color Psychiatry: unable to evaluate Results Findings/Data: Laboratory Tests 05/25 05/25 0105 0105 Chemistry Sodium (136 - 145 mmol/L) 139 Potassium (3.5 - 5.1 mmol/L) 3.6 Chloride (98 - 107 mmol/L) 106.0 Carbon Dioxide (21 - 32 mmol/L) 24.0 Anion Gap (10 - 20) 12.6 BUN (7 - 18 mg/dL) 17 Creatinine (0.7 - 1.3 mg/dL) 1.20 Glomerular Filtr Rate (>=60 mL/min) > 60 BUN/Creatinine Ratio (10 - 20) 14.8 Glucose (74 - 106 mg/dL) 88 Lactic Acid (0.4 - 1.9 mmol/L) 0.7 Calcium (8.5 - 10.1 mg/dL) 9.0 Total Bilirubin (0.0 - 1.0 mg/dL) 1.60 H Direct Bilirubin (0.0 - 0.20 mg/dL) 0.60 H AST (15 - 37 IUnit/L) 33 ALT (12 - 78 IUnit/L) 24 Total Alk Phosphatase (45 - 117 IUnit/L) 63 Troponin I (0 - 45 pg/mL) 10.820 Total Protein (6.4 - 8.2 gram/dL) 7.0 Albumin (3.4 - 5.0 g/dL) 3.9 Globulin (2.7 - 4.2 gram/dL) 3.1 Albumin/Globulin Ratio (0.75 - 1.50) 1.3 Laboratory Tests 05/25 0105 Hematology WBC (4.5 - 12.5 K/mm3) 8.5 RBC (4.0 - 5.8 mill/mm3) 4.72 Hgb (13.0 - 17.5 gram/dL) 14.9 Hct (42.0 - 52.0 %) 44.7 MCV (80 - 98 fL) 94.7 MCH (27.0 - 33.0 picogram) 31.6 MCHC (33.0 - 36.0 gram/dL) 33.3 RDW (11.6 - 16.2 %) 12.9 RDW Std Deviation (37.0 - 51.0 fL) 44.0 Plt Count (150 - 450 K/mm3) 199 MPV (6.7 - 11.0 fL) 10.8 Neut % (Auto) (39.0 - 69.0 %) 85.1 H Lymph % (Auto) (25.0 - 55.0 %) 4.9 L [place] % (Auto) (0.0 - 10.0 %) 5.6 Eos % (Auto) (0.0 - 5.0 %) 3.7 Baso % (Auto) (0.0 - 1.0 %) 0.5 Neut # (Auto) (1.8 - 7.7 K/mm3) 7.26 Lymph # (Auto) (1.0 - 5.0 K/mm3) 0.42 L [place] # (Auto) (0 - 0.8 K/mm3) 0.48 Eos # (Auto) (0.0 - 0.5 K/mm3) 0.32 Baso # (Auto) (0.0 - 0.2 K/mm3) 0.04 Nucleated RBC % (0 - 0 %) 0.0 Nucleated RBCs # (Man) (0.0 - 0.1 K/mm3) 0.00 Laboratory Tests 05/25 030 Other Body Source POC Nasal Influenza A (Negative) Negative POC Nasal Influenza B (Negative) Negative Laboratory Tests 05/25 030 Serology SARS-CoV-2 Ag (Rapid) (NEGATIVE) NEGATIVE Laboratory Tests 05/25 0105 Urines Urine Color (YELLOW) YELLOW Urine Appearance (CLEAR) CLEAR Urine pH (5.0 - 8.0) 6.0 Ur Specific [place] (1.001 - 1.035) 1.022 Urine Protein (NEGATIVE mg/dL) 10 (Trace) H Urine Glucose (UA) (NEGATIVE mg/dL) NEGATIVE Urine Ketones (NEGATIVE mg/dL) NEGATIVE Urine Blood (NEGATIVE mg/dL) Negative Urine Nitrite (NEGATIVE) NEGATIVE Urine Bilirubin (NEGATIVE mg/dL) NEGATIVE Urine Urobilinogen (NEGATIVE mg/dL) Normal Ur Leukocyte Esterase (NEGATIVE Gilma/uL) NEGATIV E Urine RBC (0 - 5 #/HPF) 0-2 Urine WBC (0 - 5 per HPF) 0-5 Ur Epithelial Cells (FEW per HPF) None seen Urine Bacteria (NONE #/HPF) NONE SEEN Urine Mucus (FEW #/LPF) FEW Radiology data: Recent Impressions: RADIOLOGY - XR CHEST 1 V 05/25 0049 Report Impression - Status: SIGNED Entered: 05/25/2022 0111 IMPRESSION: Probable atelectatic changes versus less likely pneumonia medially at the left lung base and patchy interstitial infil trate and mild elevation left hemidiaphragm Lung volume is shallow limiting assessment Prominence of the aortic knob. Cannot entirely e xclude aneurysmal dilatation of the thoracic aorta. Impression By: Shane - Mamie la M.D. Diagnosis, Assessment Plan Code Status/Resusc. Discussion Code status: full code Free Text DxA P Notes Free Text DxA P Notes: 76-year-old man with #Sepsis, present on admission secondary to left lower lobe community-acquired pneumonia Received IV fluid hydration Follow-up blood culture results Continue IV antibiotics with ceftriaxone and az ithromycin Antitussives as needed for cough Nebulized treatments as needed for shortness of breath #Hypertension with coronary artery disease Resume home blood pressure medications and Plav ix Titrate blood pressure medications as needed IV hydralazine as needed for systolic pressure greater than 160 #Benign prostatic hypertrophy Resume Proscar and Flomax #Dementia Resume home medications Further recommendations based on clinical course Full code by default Next of kin is his DVT prophylaxis with Lovenox 35 minutes of time spent reviewing chart, labs, imaging, plan of care with ER physician. Electronically Signed by Klaudia Osborn MD on at 0446 RPT #:[id number] END OF REPORT 2022-05-25 04:18:00-00:00 [facility] ([facility]) EMERGENCY PROVIDER REPORT REPORT#:[id number] REPORT STATUS: Signed DATE:05/25/22 TIME: 0418 PATIENT: KAYLA HO UNIT #: [id number] ROOM/BED: [facility] AGE: 76 SEX: M PCP PHYS: No Primary or Family Ph ysician SERVICE AUTHOR: Terry Yao MD * ALL edits or amendments must be made on the [employer]/computer document * HPI-Dyspnea/Wheezing Free Text HPI Notes Free Text HPI Notes ptpresents to ED with report ed sob/cough from alf. present for several days steadily worsening. General Initial Greet Date/Time 05/25/22 0042 Presentation Chief Complaint Cough, Shortness of breath )( Sudden in Onset? No Review of Systems ROS Statements Unable to Obtain ROS Patient condition Past Medical History - Adult Stated Complaint PNA Allergies Coded Allergies: No Known Allergies (05/28/22) Home Medications Reported Medications LEVOTHYROXINE (SYNTHROID) 25 MCG PO DAILY 0600 ATORVASTATIN (LIPITOR) 80 MG PO DAILY CARVEDILOL (COREG) 12.5 MG PO BID CLOPIDOGREL (PLAVIX) 75 MG PO DAILY DONEPEZIL (ARICEPT) 10 MG PO DAILY ESCITALOPRAM (LEXAPRO) 20 MG PO DAILY FENOFIBRATE 145 MG PO DAILY FINASTERIDE (PROSCAR) 5 MG PO DAILY OMEPRAZOLE ER 20 MG PO DAILY TAMSULOSIN ER (FLOMAX) 0.4 MG PO DAILY ASPIRIN EC (ECOTRIN) 81 MG PO DAILY MAGNESIUM OXIDE 500 MG PO DAILY MULTIVITAMIN (MULTIPLE VITAMIN) 1 TAB PO DAILY Calculated Suicide Risk (nurs) No risk Smoking status for patients 13 years old or olde r: Unknown,if ever smoked Physical Exam Vital Signs Vital Signs First Documented: Result Date Time Pulse Ox 95 05/25 36 B/P 164/82 05/25 36 B/P Mean 109 05/25 36 O2 Delivery Room air 05/25 36 Temp 38.3 05/25 36 Pulse 92 05/25 36 Resp 17 05/25 36 Last Documented: Result Date Time Pulse Ox 95 05/25 332 B/P 155/70 05/25 332 B/P Mean 98 05/25 332 O2 Delivery Room air 05/25 332 Pulse 86 05/25 332 Resp 18 05/25 332 Temp 38.3 05/25 36 Review of Vital Signs Reviewed Basic Physical Exam Basic PE HEAD: Atraumatic/NC , EYES: PERRL, conj clear, ENT: Membranes moist, ABD : Soft/non-tender, EXT: No g ross abnormality, SKIN: No rashes, warm/dry, NEURO: gross movement NL Focused PE Resp/Chest Respiratory/Chest Atraumatic, Breath sounds = b ilat Interpretation Diagnostics Lab Results Interpretation Results Laboratory Tests 05/25/22 010: [Embedded Image Not Available] Laboratory Tests: 05/25 05/25 05/25 030 0105 0105 Chemistry Sodium (136 - 145 mmol/L) 139 Potassium (3.5 - 5.1 mmol/L) 3.6 Chloride (98 - 107 mmol/L) 106.0 Carbon Dioxide (21 - 32 mmol/L) 24.0 Anion Gap (10 - 20) 12.6 BUN (7 - 18 mg/dL) 17 Creatinine (0.7 - 1.3 mg/dL) 1.20 Glomerular Filtr Rate (>=60 mL/min) > 60 BUN/Creatinine Ratio (10 - 20) 14.8 Glucose (74 - 106 mg/dL) 88 Lactic Acid (0.4 - 1.9 mmol/L) 0.7 Calcium (8.5 - 10.1 mg/dL) 9.0 Total Bilirubin (0.0 - 1.0 mg/dL) 1.60 H Direct Bilirubin (0.0 - 0.20 mg/dL) 0.60 H AST (15 - 37 IUnit/L) 33 ALT (12 - 78 IUnit/L) 24 Total Alk Phosphatase (45 - 117 IUnit/L) 63 Troponin I (0 - 45 pg/mL) 10.820 Total Protein (6.4 - 8.2 gram/dL) 7.0 Albumin (3.4 - 5.0 g/dL) 3.9 Globulin (2.7 - 4.2 gram/dL) 3.1 Albumin/Globulin Ratio (0.75 - 1.50) 1.3 Hematology WBC (4.5 - 12.5 K/mm3) 8.5 RBC (4.0 - 5.8 mill/mm3) 4.72 Hgb (13.0 - 17.5 gram/dL) 14.9 Hct (42.0 - 52.0 %) 44.7 MCV (80 - 98 fL) 94.7 MCH (27.0 - 33.0 picogram) 31.6 MCHC (33.0 - 36.0 gram/dL) 33.3 RDW (11.6 - 16.2 %) 12.9 RDW Std Deviation (37.0 - 51.0 fL) 44.0 Plt Count (150 - 450 K/mm3) 199 MPV (6.7 - 11.0 fL) 10.8 Neut % (Auto) (39.0 - 69.0 %) 85.1 H Lymph % (Auto) (25.0 - 55.0 %) 4.9 L [place] % (Auto) (0.0 - 10.0 %) 5.6 Eos % (Auto) (0.0 - 5.0 %) 3.7 Baso % (Auto) (0.0 - 1.0 %) 0.5 Neut # (Auto) (1.8 - 7.7 K/mm3) 7.26 Lymph # (Auto) (1.0 - 5.0 K/mm3) 0.42 L [place] # (Auto) (0 - 0.8 K/mm3) 0.48 Eos # (Auto) (0.0 - 0.5 K/mm3) 0.32 Baso # (Auto) (0.0 - 0.2 K/mm3) 0.04 Nucleated RBC % (0 - 0 %) 0.0 Nucleated RBCs # (Man) (0.0 - 0.1 K/mm3) 0.00 Other Body Source POC Nasal Influenza A (Negative) Negative POC Nasal Influenza B (Negative) Negative Serology SARS-CoV-2 Ag (Rapid) (NEGATIVE) NEGATIVE Urines Urine Color (YELLOW) YELLOW Urine Appearance (CLEAR) CLEAR Urine pH (5.0 - 8.0) 6.0 Ur Specific [place] (1.001 - 1.035) 1.022 Urine Protein (NEGATIVE mg/dL) 10 (Trace) H Urine Glucose (UA) (NEGATIVE mg/dL) NEGATIVE Urine Ketones (NEGATIVE mg/dL) NEGATIVE Urine Blood (NEGATIVE mg/dL) Negative Urine Nitrite (NEGATIVE) NEGATIVE Urine Bilirubin (NEGATIVE mg/dL) NEGATIVE Urine Urobilinogen (NEGATIVE mg/dL) Normal Ur Leukocyte Esterase (NEGATIVE [place]/uL) NEGATIV E Urine RBC (0 - 5 #/HPF) 0-2 Urine WBC (0 - 5 per HPF) 0-5 Ur Epithelial Cells (FEW per HPF) None seen Urine Bacteria (NONE #/HPF) NONE SEEN Urine Mucus (FEW #/LPF) FEW Microbiology: Date/Time Procedure - Status Source Growth 05/26 119 Blood Culture - COMP BLOOD COAG NEG STAPHYLOCOCCUS 05/26 119 Blood Culture - COMP BLOOD 05/25 104 Blood Culture - COMP BLOOD COAG NEG STAPHYLOCOCCUS 05/25 104 Blood Culture - COMP BLOOD Recent Impressions: RADIOLOGY - XR CHEST 1 V 05/25 0049 Report Impression - Status: SIGNED Entered: 05/25/2022 0111 IMPRESSION: Probable atelectatic changes versus less likely pneumonia medially at the left lung base and patchy interstitial infil trate and mild elevation left hemidiaphragm Lung volume is shallow limiting assessment Prominence of the aortic knob. Cannot entirely e xclude aneurysmal dilatation of the thoracic aorta. Impression By: Shane la M.D. Lab Imaging Statement Laboratory radiographic studies reviewed and con sidered in the medical decision-making. Re-Evaluation MDM Free Text MDM Notes Free Text MDM Notes Pt found to have sepsis, given medications. Will admit for antibiotics and further care. Patient presen ts to the ED with problems of [moderate ] severity. The problems are new with ad ditional work-up planned. The patient's presentation required immediate evaluation by myself. The sandee mccracken's current condition does pose an immediate threat to life/physiologic fun ction. Any testing ordered possibly including, but not limited to, [lab wor k] [imaging] [EKG] and was reviewed, interpreted and considered by myself f or ultimate patient disposition. If available patient psychiatry teacher al records were reviewed by myself and taken into consideration. Wolf herrmann will require inpatient care that may include: [monitoring] [medication] [specialist evaluation ]. ED Course Medication(s) Ordered Medication(s) Ordered: Anti-Infective Agents Sig/Fletcher Start time Last Medication Dose Route Stop Time Status Admin Azithromycin 500 MG X1ED STA 05/25 0043 DC 04/28 9 Sodium Chloride 250 ML IV 05/25 0142 0123 Ceftriaxone Sodium 1,000 MG X1ED STA 05/25 0043 DC 05/25 Sodium Chloride 10 ML IV 05/25 0045 0123 Central Nervous System Agents Sig/Fletcher Start time Last Medication Dose Route Stop Time Status Admin Acetaminophen 1,000 MG X1ED STA 05/25 0319 DC 0 05/25 PO 05/25 0320 0335 Electrolytic, Caloric, And Cori Sig/Fletcher Start time Last Medication Dose Route Stop Time Status Admin Sodium Chloride 2,000 ML X1ED STA 05/25 0042 DC 05/25 IV 05/25 0043 0124 Patient Discharge Departure Vital Signs/Condition Vital Signs First Documented: Result Date Time Pulse Ox 95 05/25 0037 B/P 164/82 05/25 0037 B/P Mean 109 05/25 003 O2 Delivery Room air 05/25 36 Temp 38.3 05/25 003 Pulse 92 05/25 003 Resp 17 05/25 36 Last Documented: Result Date Time Pulse Ox 95 05/25 332 B/P 155/70 05/25 332 B/P Mean 98 05/25 332 O2 Delivery Room air 05/25 332 Pulse 86 05/25 332 Resp 18 05/25 332 Temp 38.3 05/25 003 All vital signs available at the time of this en try have been reviewed. Clinical Impression Clinical Impression Primary Impression: PNA (pneumonia) Disposition Decision Admit )( Admission Accepts Yes )( Accepted Time 041 )( Accepted Date 05/25/22 Discharge/Care Plan (Auto) Prescriptions Current Visit Scripts IPRATROPIUM/ALBUTEROL (DUONE B 0.5 MG-3/3ML) 3 ML NEB RTQ6H PRN PRN SHORTNESS OF BREATH/CONGESTION IPRATROPIUM/ALBUTEROL (DUONEB 0.5 MG-3/3ML) 3 M L NEB RTQ6H PRN PRN SHORTNESS OF BREATH/CONGESTION #30 EACH traZODone (DESYREL) 25 MG PO DAILY traZODone (DESYREL) 25 MG PO DAILY #30 TABS QUEtiapine (SEROquel) 25 MG PO Q6H PRN Agitation /Anxiety/Psychosis QUEtiapine (SEROquel) 25 MG PO Q6H PRN Agitatio n/Anxiety/Psychosis #60 TABS Electronically Signed by Terry Yao MD on 0 06/29/22 at 0712 RPT #[id number] END OF REPORT 2022-05-16 20:24:00-00:00 [id number] [place] [address] PATIENT NAME: KAYLA HO ADMIT DATE: 05/16/22 ACCOUNT NO: [id number] ROOM NO: AGE: 76 REPORT TYPE: eELECTROCARDIOGRAM SEX: M ADMITTING PHYSICIAN: ATTENDING PHYSICIAN: Order: [id number] Test Reason : MED CLEAR Test Date/Time Stamp: MonMay 16 2022 20:24:51 Blood Pressure : / mmHG Vent. Rate : 082 BPM Atrial Rate : 082 BPM P-R Int : 186 ms QRS Dur : 074 ms QT Int : 392 ms P-R-T Axes : 045 085 015 degree s QTc Int : 457 ms Sinus rhythm with occasional premature ventricul ar complexes and fusion complexes Anterolateral infarct (cited on or before ) Abnormal ECG When compared with ECG of 16-MAY-2022 20:24, (Un confirmed) fusion complexes are now present Confirmed by PAMELA LANDERS MD ([id number]) on 9:08:06 PM Referred By: Self Referred Confirmed by:PAMELA HE MD at 2108 PATIENT NAME: KAYLA HO 10
[2022-08-06 18:40] LABS: Specific Gravity 1.007 (1.005-1.030); Urine Bacteria None Seen /HPF (<20); Urine Bilirubin NEGATIVE (Negative); Urine Blood Negative (Negative); Urine Clarity Extremely Turbid (Clear); Urine Color Light-Yellow (Yellow); Urine Glucose NEGATIVE (Negative); Urine Protein NEGATIVE (Negative); Urine RBC <5 /HPF (None Seen); Urine Urobilinogen Normal (Normal)
[2022-08-06 18:41] LABS: Absolute Lymphocytes (CBC) 0.8 K/uL (0.7-4.9); Hematocrit 34.7 % (39.6-49.0); Lymphocytes % 11.1 % (15.3-44.8); MCV 90.3 fL (80-100); MPV 7.9 fL (7.6-11.3); RBC Red Blood Cell Count 3.85 M/uL (4.33-5.43)
--- NOTE | 2022-08-06 18:50 | RAD REPORT ---
EXAM DESCRIPTION: CT - Head Brain Wo Cont - 08/06/2022 6:43 pm CLINICAL HISTORY: AMS COMPARISON: No comparisons TECHNIQUE: All CT scans are performed using dose optimization technique as appropriate and may inclu de automated exposure control or mA/KV adjustment according to patient size. FINDINGS: No intracranial hemorrhage, hydrocephalus or extra-axial fluid collection.No areas of brai n edema or evidence of midline shift. Bilateral mastoid effusions. The calvarium is intact. IMPRESSION: No acute intracranial abnormality.
--- NOTE | 2022-08-06 18:52 | RAD REPORT ---
EXAM DESCRIPTION: RAD - Chest Single View - 08/06/2022 6:46 pm CLINICAL HISTORY: FEVER COMPARISON: Chest Pa And Lat (2 Views) dated 08/20/2021; Chest Pa And Lat (2 Views) dated 03/08/2021; Chest Pa And Lat (2 Views) dated 06/30/2018; Chest Pa And Lat (2 Views) dated 04/03/2018 FINDINGS: Lines: None. Lungs: Mild ill-defined opacities the left lung base which are new from prior. Pleural: No significant pleural effusions or pneumothorax. Cardiac: Similar size and configuration. Mediastinum: Within normal limits. Bones: No acute fractures. Other: Surgical clips in right upper quadrant. IMPRESSION: New mild left basilar airspace disease could represent developing pneumonia.
[2022-08-06 18:58] LABS: Albumin 2.9 g/dL (3.4-5.0); Bilirubin Total 0.5 mg/dL (0.2-1.0); Potassium 2.9 mEq/L (3.5-5.1); Protein, Total 6.4 g/dL (6.4-8.2)
[2022-08-06 19:03] LABS: SARS-CoV-2 Antigen Rapid Res Negative (Negative)
[2022-08-06] MEDS ORDERED: CEFTRIAXONE 1000 MG/VIAL ONE (19:20)
[2022-08-06] MEDS ORDERED: POTASSIUM CL SA 10 MEQ TAB PO ONE (19:20)
[2022-08-06] MEDS ORDERED: WATER FOR INJ,STERILE 10 ML ONE (19:20)
[2022-08-06] MEDS ORDERED: POTASSIUM 25 MEQ EFFERV TAB ONE (19:29)
[2022-08-06 20:01] LABS: Protime INR 1.16
--- NOTE | 2022-08-06 20:32 | ER ---
Nurse's Notes [facility] [place] Name: Shea Campbell Age: 76 yrs Sex: Male : 1945 Arrival Date: 08/06/2022 Time: 18:03 Bed 7 Private MD: Diagnosis: UTI/ Urinary tract infection, site not specified;Pneumonia, unspecified organism Presentation: 08/06 18:06 Chief complaint: EMS states: Called out for AMS, hx dementia, was unresponvie prior to EMS arrival but when brought outside opened his eyes and has been talking with us. Denies any complaints currently, oriented x 1-2. Coronavirus screen: Vaccine status: Client denies travel out of the [place] in the last 14 days. Ebola Screen: No symptoms or risks identified at this time. Initial Sepsis Screen: Does the patient meet any 2 criteria? Altered Mental Status. Does the patient have a suspected source of infection? No. Patient's initial sepsis screen is negative. Risk Assessment: Do you want to hurt yourself or someone else? Patient reports no desire to harm self or others. Onset of symptoms was August 06, 2022 at 16:15. Transition of care: patient was received from another setting of care (long-term care facility), [facility]. 18:06 Method Of Arrival: EMS: [facility] 18:06 Acuity: LELA 3 Triage Assessment: 18:10 General: Appears in no apparent distress. Behavior is calm, cooperative. Pain: Denies pain. EENT: No deficits noted. Neuro: Level of Consciousness is awake, alert, obeys commands, Oriented to person, Moves all extremities. Facial symmetry appears normal. Cardiovascular: Capillary refill < 3 seconds Patient's skin is warm and dry. Respiratory: Airway is patent Respiratory effort is even, unlabored. GI: No signs and/or symptoms were reported involving the gastrointestinal system. Abdomen is non-distended. Historical: - Allergies: 18:10 No Known Allergies; iw - PMHx: 18:08 Hyperlipidemia; Hypertension; Thyroid problem; VASCULAR DEMENTIA; BPH; iw - Immunization history:: Adult Immunizations unknown. - Social history:: Smoking status: unknown. - Family history:: not pertinent. - Hospitalizations: : No recent hospitalization is reported. Screenin:11 [facility] Fall Risk Assessment (Adult) History of falling in the last 3 months, iw including since admission Yes- fall prone (multiple falls) (3 pts) Confusion or Disorientation Yes (5 pts) Intoxicated or Sedated No (0 pts) Impaired Gait Yes (1 pt) Mobility Assist Device Used Yes (1 pt) Altered Elimination Yes (1 pt) Score/Fall Risk Level 3 or more points = High Risk Maintained a safe environment, Hourly rounding (assess needs \T\ fall precautionary measures) done. Abuse screen: Denies threats or abuse. Nutritional screening: No deficits noted. Tuberculosis screening: No symptoms or risk factors identified. Assessment: 18:12 General: Appears in no apparent distress. Behavior is calm, cooperative. Pain: Denies iw pain. Neuro: Level of Consciousness is awake, alert, obeys commands, Oriented to person, Moves all extremities. Cardiovascular: Capillary refill < 3 seconds Patient's skin is warm and dry. Respiratory: Airway is patent Respiratory effort is even, unlabored. GI: No signs and/or symptoms were reported involving the gastrointestinal system. Abdomen is non-distended. : No signs and/or symptoms were reported regarding the genitourinary system. EENT: No signs and/or symptoms were reported regarding the EENT system. Musculoskeletal: Circulation, motion, and sensation intact. Vital Signs: 18:06 BP 165 / 81; Pulse 65; Resp 18; Temp 99.7(O); Pulse Ox 96% on R/A; Weight 92.5 kg; iw 21:32 BP 162 / 88; Pulse 64; Resp 16; Temp 98.1(O); Pulse Ox 98% on R/A; rv [place] Coma Score: 21:33 Eye Response: spontaneous(4). Motor Response: obeys commands(6). Verbal Response: rv confused(4). Total: 14. ED Course: 18:05 Patient arrived in ED. la1 18:05 Dwaine Campos MD is Attending Physician. rn 18:06 Elsy Mena RN is Primary Nurse. iw 18:08 Triage completed. iw 18:11 Arm band placed on left wrist. iw 18:11 Patient has correct armband on for positive identification. Call light in reach. Side iw rails up X2. slusher operator on. Pulse ox on. NIBP on. 18:12 Urine collected: straight cath specimen, clear, Amount Returned: 1000mL. iw 18:13 Radiology exam delayed due to nurse placing cath at this time. ls3 18:18 Inserted saline lock: 20 gauge in left antecubital area, using aseptic technique. Blood iw collected. 18:19 No provider procedures requiring assistance completed. First set of blood cultures iw drawn. 18:31 Flu Sent. iw 18:31 SARS RAPID Sent. iw 18:45 CT Head Brain wo Cont In Process Unspecified. EDMS 18:45 Warm blanket given. Client placed on continuous cardiac and pulse oximetry monitoring. mm9 NIBP monitoring applied. 18:45 Safety checks:. mm9 18:45 EKG done, by ED staff, reviewed by Dwaine Campos MD COVID swab sent to lab. Flu and/or mm9 RSV swab sent to lab. 18:48 Chest Single View XRAY In Process Unspecified. EDMS 19:00 Attending Physician role handed off by Dwaine Campos MD bs3 19:00 Charanjit Guerra MD is Attending Physician. bs3 21:33 IV discontinued, intact, bleeding controlled, No redness/swelling at site. Pressure rv dressing applied. Administered Medications: 19:29 Drug: Rocephin IV 1 grams Route: IV; Rate: calculated rate; Site: right antecubital; iw 21:32 Follow up: Response: No adverse reaction; IV Status: Completed infusion rv 19:29 Not Given (Duplicate Order): Potassium Chloride PO Liquid 40 mEq PO once iw 19:29 Drug: Potassium PO Effervescent Tablet 50 mEq Route: PO; iw 21:31 Follow up: Response: No adverse reaction rv 20:37 Drug: AZITHromycin IVPB 500 mg Route: IVPB; Infused Over: 1 hrs; Site: right rv antecubital; 21:32 Follow up: IV Status: Completed infusion; IV Intake: 250ml rv 21:32 Follow up: Response: No adverse reaction rv Medication: 18:25 VIS not applicable for this client. iw Intake: 21:32 IV: 250ml; Total: 250ml. rv Outcome: 20:31 Discharge ordered by . bs3 21:33 Discharged to correction. Report called to [facility] Transfer form completed. rv 21:33 Condition: improved 21:33 Discharge instructions given to family, Instructed on discharge instructions, follow up and referral plans. medication usage, Demonstrated understanding of instructions, follow-up care, medications, Prescriptions given X 2. 21:33 Patient left the ED. rv Signatures: Dispatcher [employer] Elsy Laguna RN RN iw Nieto, Roman, MD MD rn Will Mathew, GAS DISTRIBUTION PLANT OPERATOR-C GAS DISTRIBUTION PLANT OPERATOR-Cla1 Han Farias RN RN rv Siler, Lynzie ls3 Charanjit Guerra MD MD bs3 Ronny, Kusum mm9
--- NOTE | 2022-08-06 20:32 | EDPHYS ---
Physician Documentation [facility] Name: Shea Campbell Age: 76 yrs Sex: Male : 1945 Arrival Date: 08/06/2022 Time: 18:03 Bed 7 Private MD: ED Physician Charanjit Guerra HPI: 08/06 18:16 This 76 yrs old Male presents to ER via EMS with complaints of AMS. rn 18:16 The patient presents with decreased mental status, decreased responsiveness. Onset: The rn symptoms/episode began/occurred at an unknown time. Possible causes: unknown. Current symptoms: In the emergency department the patient's symptoms have improved. It is unknown whether or not the patient has had similar symptoms in the past. EMS called to long term, memory unit, for patient being unresponsive. EMS reports appeared confused at first, but when got outside, patient woke up and told them he was "just trying to nap". Denies pain. No trauma. . Historical: - Allergies: 18:10 No Known Allergies; iw - PMHx: 18:08 Hyperlipidemia; Hypertension; Thyroid problem; VASCULAR DEMENTIA; BPH; iw - Immunization history:: Adult Immunizations unknown. - Social history:: Smoking status: unknown. - Family history:: not pertinent. - Hospitalizations: : No recent hospitalization is reported. ROS: 18:16 Constitutional: Negative for fever, chills, and weight loss, Eyes: Negative for injury, rn pain, redness, and discharge, Neck: Negative for injury, pain, and swelling, Cardiovascular: Negative for chest pain, palpitations, and edema, Respiratory: Negative for shortness of breath, cough, wheezing, and pleuritic chest pain, Abdomen/GI: Negative for abdominal pain, nausea, vomiting, diarrhea, and constipation, Back: Negative for injury and pain, : Negative for injury, bleeding, discharge, and swelling, MS/Extremity: Negative for injury and deformity, Skin: Negative for injury, rash, and discoloration, Neuro: Negative for headache, weakness, numbness, tingling, and seizure. Exam: 18:16 Constitutional: This is a well developed, well nourished patient who is awake, alert, rn and in no acute distress. Head/Face: Normocephalic, atraumatic. ENT: dry MM Cardiovascular: Regular rate and rhythm. No pulse deficits. Respiratory: No increased work of breathing, no retractions or nasal flaring. Abdomen/GI: soft, non-tender Skin: Warm, dry MS/ Extremity: Pulses equal, no cyanosis Neuro: Awake and alert, GCS 15, oriented to person, not place or time 18:34 ECG was reviewed by the Attending Physician. rn Vital Signs: 18:06 BP 165 / 81; Pulse 65; Resp 18; Temp 99.7(O); Pulse Ox 96% on R/A; Weight 92.5 kg; iw 21:32 BP 162 / 88; Pulse 64; Resp 16; Temp 98.1(O); Pulse Ox 98% on R/A; rv [place] Coma Score: 21:33 Eye Response: spontaneous(4). Motor Response: obeys commands(6). Verbal Response: rv confused(4). Total: 14. MDM: 18:05 Patient medically screened. rn 20:29 Data reviewed: vital signs, nurses notes. ED course: Patient signed out pending bs3 reassessment and full work-up his work-up is concerning for possible pneumonia and urinary tract infection here he is not hypoxic tachypneic or in respiratory distress he is otherwise well-appearing with normal vital signs I had a shared decision-making conversation with the family at bedside who noted that he does much better at [facility] where he is very familiar with the staff given his underlying vascular dementia and his current lack of oxygen needs the patient would likely benefit from being discharged back to [facility] very strict return precautions were given. 08/06 18:06 Order name: Blood Culture Adult (2) rn 08/06 18:06 Order name: CBC with Diff; Complete Time: 18:57 rn 08/06 18:06 Order name: CMP; Complete Time: 19:00 rn 08/06 18:06 Order name: Lactate w/ 2H reflex if indic.; Complete Time: 18:57 rn 08/06 18:06 Order name: Protime (+inr); Complete Time: 20:17 rn 08/06 18:06 Order name: Ptt, Activated; Complete Time: 20:17 rn 08/06 18:06 Order name: Urinalysis w/ reflexes; Complete Time: 18:41 rn 08/06 18:06 Order name: Flu; Complete Time: 19:10 rn 08/06 18:06 Order name: SARS RAPID; Complete Time: 19:10 rn 08/06 18:43 Order name: Urine Culture EDMS 08/06 18:06 Order name: Chest Single View XRAY; Complete Time: 18:57 rn 08/06 18:06 Order name: CT Head Brain wo Cont; Complete Time: 18:57 rn 08/06 18:06 Order name: EKG; Complete Time: 18:06 rn 08/06 18:06 Order name: Accucheck; Complete Time: 18:25 rn 08/06 18:06 Order name: Cardiac monitoring; Complete Time: 18:21 rn 08/06 18:06 Order name: Cath; Complete Time: 18:21 rn 08/06 18:06 Order name: EKG - Nurse/Tech; Complete Time: 18:33 rn 08/06 18:06 Order name: IV Saline Lock - Large Bore; Complete Time: 18:21 rn 08/06 18:06 Order name: Labs collected and sent; Complete Time: 18:21 rn 08/06 18:06 Order name: O2 Per Protocol; Complete Time: 18: rn 08/06 18:06 Order name: O2 Sat Monitoring; Complete Time: 18:21 rn 08/06 18:06 Order name: Vital Signs; Complete Time: 18:21 rn EC:34 Rate is 62 beats/min. Rhythm is irregular, Sinus Rhythm with Unifocal PVCs. QRS [place] is rn Normal. [place] interval is normal. QRS interval is normal. QT interval is normal. No Q waves. T waves are Normal. No ST changes noted. Clinical impression: NSR w/ Non-specific ST/T Changes and PVCs. Interpreted by me. Reviewed by me. Administered Medications: 19:29 Drug: Rocephin IV 1 grams Route: IV; Rate: calculated rate; Site: right antecubital; iw 21:32 Follow up: Response: No adverse reaction; IV Status: Completed infusion rv 19:29 Not Given (Duplicate Order): Potassium Chloride PO Liquid 40 mEq PO once iw 19:29 Drug: Potassium PO Effervescent Tablet 50 mEq Route: PO; iw 21:31 Follow up: Response: No adverse reaction rv 20:37 Drug: AZITHromycin IVPB 500 mg Route: IVPB; Infused Over: 1 hrs; Site: right rv antecubital; 21:32 Follow up: IV Status: Completed infusion; IV Intake: 250ml rv 21:32 Follow up: Response: No adverse reaction rv Disposition Summary: 08/06/22 20:31 Discharge Ordered Location: Home bs3 Problem: new bs3 Symptoms: have improved bs3 Condition: Stable bs3 Diagnosis - UTI/ Urinary tract infection, site not specified bs3 - Pneumonia, unspecified organism bs3 Followup: bs3 - With: Private Physician - When: 2 - 3 days - Reason: Re-evaluation by your physician Discharge Instructions: - Discharge Summary Sheet bs3 - Community-Acquired Pneumonia, Adult bs3 - Urinary Tract Infection, Adult bs3 - Rehydration, Adult bs3 Forms: - Medication Reconciliation Form bs3 - Thank You Letter bs3 - Antibiotic Education bs3 - Prescription Opioid Use bs3 Prescriptions: - cefdinir 300 mg Oral capsule - take 1 capsule by ORAL route 2 times per day for 10 days; 20 capsule; Refills: bs3 0, Product Selection Permitted - Doxycycline Hyclate 100 mg Oral Tablet - take 1 tablet by ORAL route every 12 hours; 20 tablet; Refills: 0, Product bs3 Selection Permitted Signatures: Dispatcher [employer] Elsy Laguna, Dwaine Hodge RN, MD MD rn Attema, Lee, BODY ARTIST-C BODY ARTIST-Cla1 Han Farias RN RN rv Stein, Brandon, MD MD bs3
[2022-08-06] MEDS ORDERED: NA CHLORIDE 0.9% 250 ML ONE (20:39)
[2022-08-06] MEDS ORDERED: AZITHROMYCIN 500 MG INJ IVPB ONE (20:39)
[2022-08-06 22:36] VITALS: BP 162/88; TEMP 98.1; O2SAT 98
--- NOTE | 2022-08-08 12:07 | EKG ---
Test Date: 2022-08-06 Test Time: 18:32:16 Financial Business Analyst: NUSRAT MEASUREMENT RESULTS: Intervals: Rate: 62 TN: 176 QRSD: 98 QT: 472 QTc: 479 [place]: P: 53 TN: 176 QRS: -5 T: 56 INTERPRETIVE STATEMENTS: Sinus rhythm with occasional premature ventricular complexes Otherwise normal ECG Compared to ECG 06/12/2022 21:29:37 Fusion complex(es) no longer present Electronically Signed On 08-08-22 12:01:03 CDT by Bao Mejia
== END 2022-08-06 21:33 | disposition home or self-care (01) ==
LOC: ER 18:03
DX: N39.0 Urinary tract infection, site not specified (principal); J18.9 Pneumonia, unspecified organism; Z20.822 Contact with and (suspected) exposure to COVID-19; F01.50 Vascular dementia, unspecified severity, without behavioral disturbance, psychotic disturbance, mood disturbance, and anxiety
CPT/HCPCS: 96365; 93005; 87040 ×2; 87088; 85025; 81001; 87086; 36415; 85610; 83605; 85730; 80053; 87804 ×2; 70450; 71045; 99285; 87811; J7050; J0696

== ENCOUNTER 2022-08-08 16:39 | Observation (INO) | payer OTHER ==
--- OUTSIDE RECORDS SUMMARY | 2022-08-08 16:46 | XMS REPORT | Continuity of Care Document ---
:1945 Author Organization [facility] t Address [address] [place] [id number] Care Team Providers Name Role Phone Nadya YOUNG, [place]t Primary Care Physician [phone] Watkins_H Attending Clinician Unavailable Taiwo Reynolds Attending Clinician Unavailable Lakhwinder Davis Attending Clinician Unavailable MARLON SYED Attending Clinician Unavailable MARLON SYED Attending Clinician Unavailable Prabhakar YOUNG, Gustavo Attending Clinician Ed MARSHALL, Aman Acosta Attending Clinician Unavailable Blu Bhatti Attending Clinician Unavailable MADINA HILTON Attending Clinician Unavailable Madina Bell Attending Clinician Sylvie Kang [facility] Attending Clinician Unavailable Doctor Unassigned, Ault Attending Clinician Unavailable GINA WILLOUGHBY Attending Clinician Unavailable Gina Paez Attending Clinician Lenora Patel RN Attending Clinician Unavailable Camilla Boateng MD Attending Clinician CAMILLA BOATENG Attending Clinician Unavailable Fernando Woodward MD Attending Clinician BERTHA KATHLEEN Attending Clinician Unavailable Maynor_Lalit Admitting Clinician Unavailable Taiwo Reynolds Admitting Clinician Unavailable Physician, No Primary or Family Admitting Clinician Unavaila MADINA Lewis Admitting Clinician Unavailable MARLON SYED Admitting Clinician Unavailable CAMILLA BOATENG Admitting Clinician Unavailable Camilla Boateng MD Admitting Clinician Payers Payer Name Policy Type Policy Number Effective Date Expiration Date S holden MEDICARE B-[place]: [id number] 2012 [place] 00:00:00 MEDICARE PART A [id number] 2012 \\T\\ B 00:00:00 DEJAN [id number] 2012 00:00:00 Problems Condition Condition Condition Status [...] disease 00:00: Hospita involving involving 00 [place] coronary coronary 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[place] 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 angina 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 03-07 ity of disease disease 00:00: [place] involving involving 00 Medi jessica [place] Branch coronary coronary 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[place] 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 angina angina pectoris 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 00:00: Hospit a 00 l CAD in CAD in Disease Active 2015-02 Methodi [place] 03-07 st artery artery 00:00: Hospita 00 [...] Allergie 4-01 [place] 00:00: e 00 [facility] No Known DA Active U [facility] Allergie 3-20 Clear s 00:00: [place] 00 [facility] No Known Propensi Active 2015-02 Method i Drug ty to 03-07 st Allergie adverse 00:00: Hospita s reaction 00 l s to drug NO KNOWN Drug Active Univers ALLERGIE Class ity of S [facility] Family History Family Member Diagnosis Comments Start Date Stop Date Source Other Coronary artery [facility] disease Social History Social Habit Start Date Stop Date Quantity Comments Source Gender identity 2018-11-05 Identifies as Method ist 20:32:19 male gender Hospital (finding) History of Tobacco [facility] - Use [facility] Sex Assigned At Common Sp jessica - [facility] Sexual orientation Method ist Hospital Exposure to 2021-12-19 2021-12-29 Not sure University of SARS-CoV-2 (event) 00:00:00 08:43:00 [facility] Tobacco use and 2021-11-01 2021-11-01 Smokeless tobacco Un iversity of exposure 00:00:00 00:00:00 non-user [facility] Alcohol intake 2017-09-12 2017-09-12 Current drinker [facility] 00:00:00 00:00:00 of [facility] (finding) History of Social 2016-02-09 2016-02-[address] function 00:00:00 00:00:00 Hospital Smoking Status Start Date Stop Date Source Tobacco [facility] Never [facility] Medications Ordered Filled Start Stop Current Ordering [...] 15 Medical tablet Branch cyclobenzap 2021-02 Yes [id number] 5mg Take 1 Univers rine 5 mg 0-28 [id number] tablet by ity of tablet 00:00: mouth 3 (three) Medical times Branch daily as needed for Muscle Spasms. cyclobenzap 2021-02 Yes [id number] 5mg Take 1 Univers rine 5 mg 0-28 [id number] tablet by ity of tablet 00:00: mouth 3 (three) Medical times Branch daily as needed for Muscle Spasms. cyclobenzap 2021-02 Yes [id number] 5mg Take 1 Univers rine 5 mg 0-28 [id number] tablet by ity of tablet 00:00: mouth 3 (three) Medical times Branch daily as needed for Muscle Spasms. cyclobenzap 2021-02 Yes [id number] 5mg Take 1 Univers rine 5 mg 0-28 [id number] tablet by ity of tablet 00:00: mouth 3 [place] 00 (three) Medical times Branch daily as needed for Muscle Spasms. cyclobenzap 2021-02 Yes [id number] 5mg Take 1 Univers rine 5 mg 0-28 [id number] tablet by ity of tablet 00:00: mouth 3 [place] 00 (three) Medical times Branch daily as needed for Muscle Spasms. cyclobenzap 2021-02 Yes [id number] 5mg Take 1 Univers rine 5 mg 0-28 [id number] tablet by ity of tablet 00:00: mouth [...] 1 Medical (NS) 50 mL dose, On Bran h MINI-BAG Mon11/05/21 at 1015, Administer over [...] by mouth ity of 11:02: in the [place] [address] morning. Medical Branch buPROPion 2021-0 Yes 150mg Take 150 Uni vers XL 150 mg 9-09 mg by ity of 24 hr 11:02: mouth in [place] tablet 50 the Medical morning. Branch memantine 5 2021-0 Yes 5mg Take 5 mg U nivers mg tablet 9-09 by mouth ity of 11:02: in the [place] [address] morning. Medical Branch buPROPion 2021-0 Yes 150mg Take 150 Uni vers XL 150 mg 9-09 mg by ity of 24 hr 11:02: mouth in [place] tablet 50 the Medical morning. Branch memantine 5 2021-0 Yes 5mg Take 5 mg U nivers mg tablet 9-09 by mouth ity of 11:02: in the [place] [address] morning. Medical Branch buPROPion 2021-0 Yes 150mg Take 150 Uni vers XL 150 mg 9-09 mg by ity of 24 hr 11:02: mouth in [place] tablet 50 the Medical morning. Branch memantine 5 2021-0 Yes 5mg Take 5 mg U nivers mg tablet 9-09 by mouth ity of 11:02: in the [place] [address] morning. Medical Branch buPROPion 2021-0 Yes 150mg Take 150 Uni vers XL 150 mg 9-09 mg by ity of 24 hr 11:02: mouth in [place] tablet 50 the Medical morning. Branch memantine 5 2021-0 Yes 5mg Take 5 mg U nivers mg tablet 9-09 by mouth ity of 11:02: in the [place] 50 morning. Medical Branch buPROPion 2021-0 Yes 150mg Take 150 Uni vers XL 150 mg 9-09 mg by ity of 24 hr 11:02: mouth in [place] tablet 50 the Medical morning. Branch memantine 5 2021-0 Yes 5mg Take 5 mg U nivers mg tablet 9-09 by mouth ity of 11:02: in the [place] 50 morning. Medical Branch buPROPion 2021-0 Yes [...] by mouth ity of 11:02: in the [place] 50 morning. Medical Branch buPROPion 2021-0 Yes 150mg Take 150 Uni vers XL 150 mg 9-09 mg by ity of 24 hr 11:02: mouth in [place] tablet 50 the Medical morning. Branch memantine 5 2021-0 Yes 5mg Take 5 mg U nivers mg tablet 9-09 by mouth ity of 11:02: in the [place] 50 morning. Medical Branch buPROPion 2021-0 Yes 150mg Take 150 Uni vers XL 150 mg 9-09 mg by ity of 24 hr 11:02: mouth in [place] tablet 50 the Medical morning. Branch memantine 5 2021-0 Yes 5mg Take 5 mg U nivers mg tablet 9-09 by mouth ity of 11:02: in the [place] 50 morning. Medical Branch buPROPion 2021-0 Yes [...] by mouth ity of 11:02: in the [place] 50 morning. Medical Branch carvediloL 2021-0 Yes [...] ity of 20 mg 08:56: in the [facility] 02 morning. Medical Branch fenofibrate 2021-0 [...] mouth ity of hr capsule 08:56: daily. [place] [address] Medical Branch doxepin 50 2021-0 Yes 50mg [...] by ity of tablet 08:56: mouth at [place] 02 bedtime as Medical needed for Branch Insomnia. atorvastati 2021-0 Yes 80mg Take 80 mg Univers n calcium 9-09 by mouth ity of (ATORVASTAT 08:56: [place] 02 Medical Branch carvediloL 2021-0 Yes 12.5mg Take 12.5 Univers 12.5 mg 9-09 mg by ity of tablet 08:56: mouth in [place] the Medical morning Branch and 12.5 mg in the evening. Take with meals. ARIPiprazol 2021-0 Yes 2.5mg Take 2.5 U nivers e 5 mg 9-09 mg by ity of tablet 08:56: mouth [place] every Medical evening. Branch clopidogreL 2021-0 Yes 75mg Take 75 mg Univers 75 mg 9-09 by mouth ity of tablet 08:56: in the [place] morning. Medical Branch escitalopra 2021-0 Yes 20mg Take 20 mg Univers m oxalate 909 by mouth ity of 20 mg 08:56: in the [facility] morning. Medical Branch fenofibrate 2021-0 Yes 145mg Take 145 U nivers 145 mg 9-09 mg by ity of tablet 08:56: mouth in [place] 02 the Medical morning. Branch levothyroxi 2021-0 Yes 25ug Take 25 Uni vers ne 25 mcg 9-09 mcg by ity of tablet 08:56: mouth [place] every Medical morning. Branch donepeziL 2021-0 Yes 10mg Take 10 mg Un [place] 10 mg 9-09 by mouth ity of tablet 08:56: every [place] morning. Medical Branch omeprazole 2021-0 Yes 20mg Take 20 mg U nivers 20 mg 9-09 by mouth ity of capsule 08:56: in the [place] morning. Medical Branch finasteride 2021-0 Yes 5mg Take 5 mg U nivers 5 mg tablet 909 by mouth ity of 08:56: every [place] morning. Medical Branch tamsulosin 2021-0 Yes Take by Univ ers 0.4 mg 24 9-09 mouth ity of hr capsule 08:56: daily. [place] Medical Branch doxepin 50 2021-0 Yes 50mg Take 50 mg U nivers mg capsule 09 by mouth ity o f 08:56: every [place] evening. Medical Branch Magnesium 2021-0 Yes 1{tbl} Take 1 Univ ers Oxide 500 9-09 tablet by ity o f mg Tab 08:56: mouth [place] every Medical evening. Branch aspirin 2021-0 Yes 325mg Take 325 Unive rs E.C. 325 mg 9-09 mg by ity of EC tablet 08:56: mouth [place] every Medical evening. Branch clonazePAM 2021-0 Yes .5mg Take 0.5 Uni vers 0.5 mg 9-09 mg by ity of tablet 08:56: mouth at [place] [address] bedtime as Medical needed for Branch Insomnia. atorvastati 2021-0 Yes 80mg Take 80 mg Univers n calcium 909 by mouth ity of (ATORVASTAT 08:56: [place] 02 Medical Branch carvediloL 2021-0 Yes 12.5mg Take 12.5 Univers 12.5 mg 9-09 mg by ity of tablet 08:56: mouth in [place] the Medical morning Branch and 12.5 mg in the evening. Take with meals. ARIPiprazol 2021-0 Yes 2.5mg Take 2.5 U nivers e 5 mg 9-09 mg by ity of tablet 08:56: mouth [place] [address] every Medical evening. Branch clopidogreL 2021-0 Yes 75mg Take 75 mg Univers 75 mg 9-09 by mouth ity of tablet 08:56: in the [place] morning. Medical Branch escitalopra 2021-0 Yes 20mg Take 20 mg Univers m oxalate 909 by mouth ity of 20 mg 08:56: in the [facility] morning. Medical Branch fenofibrate 2021-0 Yes 145mg Take 145 U nivers 145 mg 9-09 mg by ity of tablet 08:56: mouth in [place] the Medical morning. Branch levothyroxi 2021-0 Yes 25ug Take 25 Uni vers ne 25 mcg 9-09 mcg by ity of tablet 08:56: mouth [place] [address] every Medical morning. Branch donepeziL 2021-0 Yes [...] by ity of tablet 08:56: mouth at [place] bedtime as Medical needed for Branch Insomnia. [...] ity of 20 mg 08:56: in the [facility] morning. Medical Branch fenofibrate 0 Yes 145mg Take 145 U nivers 145 mg 9-09 mg by ity of tablet 08:56: mouth in [place] 02 the Medical morning. Branch levothyroxi 2021-0 Yes 25ug Take 25 Uni vers ne 25 mcg 9-09 mcg by ity of tablet 08:56: mouth [place] every Medical morning. Branch donepeziL 0 Yes 10mg Take 10 mg Un [place] 10 mg 909 by mouth ity of tablet 08:56: every [place] morning. Medical Branch omeprazole 2021-0 Yes 20mg Take 20 mg U nivers 20 mg 09 by mouth ity of capsule 08:56: in the morning. Medical Branch finasteride 2021-0 Yes 5mg Take 5 mg U nivers 5 mg tablet 09 by mouth ity of 08:56: every morning. Medical Branch tamsulosin 0 Yes Take by Univ ers 0.4 mg 24 09 mouth ity of hr capsule 08:56: daily. Medical Branch doxepin 50 2021-0 Yes 50mg Take 50 mg U nivers mg capsule 09 by mouth ity o f 08:56: every [place] evening. Medical Branch Magnesium 0 Yes 1{tbl} Take 1 Univ ers Oxide 500 -09 tablet by ity o f mg Tab 08:56: mouth [place] every Medical evening. Branch aspirin 2021-0 Yes 325mg Take 325 Unive rs E.C. 325 mg 9-09 mg by ity of EC tablet 08:56: mouth [place] every Medical evening. Branch clonazePAM 2021-0 Yes .5mg Take 0.5 Uni vers 0.5 mg 9-09 mg by ity of tablet 08:56: mouth at [place] bedtime as Medical needed for Branch Insomnia. [...] ity of 20 mg 08:56: in the [facility] morning. Medical Branch fenofibrate 2021-0 Yes 145mg Take 145 U nivers 145 mg 9-09 mg by ity of tablet 08:56: mouth in [place] the Medical morning. Branch levothyroxi 2021-0 Yes 25ug Take 25 Uni vers ne 25 mcg 9-09 mcg by ity of tablet 08:56: mouth [place] every Medical morning. Branch donepeziL 2021-0 Yes 10mg Take 10 mg Un sal[place] 10 mg 9-09 by mouth ity of tablet 08:56: every [place] morning. Medical Branch omeprazole 2021-0 Yes 20mg Take 20 mg U nivers 20 mg 9-09 by mouth ity of capsule 08:56: in the morning. Medical Branch finasteride 2021-0 Yes 5mg Take 5 mg U nivers 5 mg tablet 909 by mouth ity of 08:56: every [place] morning. Medical Branch tamsulosin 2021-0 Yes Take by Univ ers 0.4 mg 24 9-09 mouth ity of hr capsule 08:56: daily. [place] Medical Branch doxepin 50 2021-0 Yes 50mg Take 50 mg U nivers mg capsule 909 by mouth ity o f 08:56: every [place] evening. Medical Branch Magnesium 2021-0 Yes 1{tbl} Take 1 Univ ers Oxide 500 9-09 tablet by ity o f mg Tab 08:56: mouth [place] 02 every Medical evening. Branch aspirin 2021-0 Yes 325mg Take 325 Unive rs E.C. 325 mg 9-09 mg by ity of EC tablet 08:56: mouth [place] 02 every Medical evening. Branch clonazePAM 2021-0 Yes .5mg Take 0.5 Uni vers 0.5 mg 9-09 mg by ity of tablet 08:56: mouth at [place] bedtime as Medical needed for Branch Insomnia. atorvastati 2021-0 Yes 80mg Take 80 mg Univers n calcium 9-09 by mouth ity of (ATORVASTAT 08:56: [place] 02 Medical Branch carvediloL 2021-0 Yes 12.5mg Take 12.5 Univers 12.5 mg 9-09 mg by ity of tablet 08:56: mouth in [place] 02 the Medical morning Branch and 12.5 mg in the evening. Take with meals. ARIPiprazol 2021-0 Yes 2.5mg Take 2.5 U nivers e 5 mg 9-09 mg by ity of tablet 08:56: mouth [place] every Medical evening. Branch clopidogreL 2021-0 Yes 75mg Take 75 mg Univers 75 mg 909 by mouth ity of tablet 08:56: in the [place] morning. Medical Branch escitalopra 2021-0 Yes 20mg Take 20 mg Univers m oxalate 909 by mouth ity of 20 mg 08:56: in the [facility] morning. Medical Branch fenofibrate 2021-0 Yes 145mg Take 145 U nivers 145 mg 9-09 mg by ity of tablet 08:56: mouth in [place] 02 the Medical morning. Branch levothyroxi 2021-0 Yes 25ug Take 25 Uni vers ne 25 mcg 9-09 mcg by ity of tablet 08:56: mouth [place] every Medical morning. Branch donepeziL 2021-0 Yes [...] mouth ity of hr capsule 08:56: daily. [place] [address] Medical Branch doxepin 50 0 Yes 50mg Take 50 mg U nivers mg capsule 9-09 by mouth ity o f 08:56: every [place] evening. Medical Branch Magnesium 0 Yes 1{tbl} Take 1 Univ ers Oxide 500 9-09 tablet by ity o f mg Tab 08:56: mouth [place] 02 every Medical evening. Branch aspirin 0 Yes 325mg Take 325 Unive rs E.C. 325 mg 9-09 mg by ity of EC tablet 08:56: mouth [place] 02 every Medical evening. Branch clonazePAM 0 Yes .5mg Take 0.5 Uni vers 0.5 mg 9-09 mg by ity of tablet 08:56: mouth at [place] 02 bedtime as Medical needed for Branch Insomnia. atorvastati 0 Yes 80mg Take 80 mg Univers n calcium 909 by mouth ity of (ATORVASTAT 08:56: [place]. [place] 02 Medical Branch carvediloL 0 Yes 12.5mg Take 12.5 Univers 12.5 mg 9-09 mg by ity of tablet 08:56: mouth in [place] the Medical morning Branch and 12.5 mg in the evening. Take with meals. ARIPiprazol 0 Yes 2.5mg Take 2.5 U nivers e 5 mg 9-09 mg by ity of tablet 08:56: mouth [place] every Medical evening. Branch clopidogreL 0 Yes 75mg Take 75 mg Univers 75 mg 909 by mouth ity of tablet 08:56: in the [place] morning. Medical Branch escitalopra 0 Yes 20mg Take 20 mg Univers m oxalate 909 by mouth ity of 20 mg 08:56: in the [facility] morning. Medical Branch fenofibrate 0 Yes 145mg Take 145 U nivers 145 mg 9-09 mg by ity of tablet 08:56: mouth in [place] the Medical morning. Branch levothyroxi 0 Yes 25ug Take 25 Uni vers ne 25 mcg 9-09 mcg by ity of tablet 08:56: mouth [place] 02 every Medical morning. Branch donepeziL 0 Yes 10mg Take 10 mg Un salbador 10 mg 9-09 by mouth ity of tablet 08:56: every [place] morning. Medical Branch omeprazole 2021-0 Yes 20mg [...] by ity of EC tablet 08:56: mouth [place] 02 every Medical evening. Branch clonazePAM 2021-0 Yes .5mg Take 0.5 Uni vers 0.5 mg 9-09 mg by ity of tablet 08:56: mouth at [place] 02 bedtime as Medical needed for Branch [...] mg by ity of tablet 08:56: mouth [place] 02 every Medical evening. Branch clopidogreL 2021-0 [...] [place] 02 the Medical morning. Branch levothyroxi 0 [...] mouth ity of hr capsule 08:56: daily. [place] 02 Medical Branch doxepin 50 2021-0 Yes 50mg Take 50 mg U nivers mg capsule 909 by mouth ity o f 08:56: every [place] evening. Medical Branch Magnesium 0 Yes 1{tbl} Take 1 Univ ers Oxide 500 9-09 tablet by ity o f mg Tab 08:56: mouth [place] 02 every Medical evening. Branch aspirin 0 Yes [...] of 20 mg 08:56: in the [place] [facility] 02 morning. Medical Branch fenofibrate 2021-0 Yes [...] by mouth ity of tablet 08:56: every [place] morning. Medical Branch omeprazole 2021-0 Yes 20mg [...] by ity of tablet 08:56: mouth at [place] [address] bedtime as Medical needed for Branch Insomnia. atorvastati 2021-0 Yes 80mg Take 80 mg Univers n calcium 9-09 by mouth ity of (ATORVASTAT 08:56: [place]. [place] 02 Medical Branch carvediloL 2021-0 Yes 12.5mg Take 12.5 Univers 12.5 mg 9-09 mg by ity of tablet 08:56: mouth in [place] 02 the Medical morning Branch and 12.5 mg in the evening. Take with meals. ARIPiprazol 2021-0 Yes 2.5mg Take 2.5 U nivers e 5 mg 9-09 mg by ity of tablet 08:56: mouth [place] every Medical evening. Branch clopidogreL 2021-0 Yes 75mg Take 75 mg Univers 75 mg 9-09 by mouth ity of tablet 08:56: in the [place] morning. Medical Branch escitalopra 2021-0 Yes 20mg Take 20 mg Univers m oxalate 909 by mouth ity of 20 mg 08:56: in the [facility] morning. Medical Branch fenofibrate 2021-0 Yes 145mg Take 145 U nivers 145 mg 9-09 mg by ity of tablet 08:56: mouth in [place] the Medical morning. Branch levothyroxi 2021-0 Yes 25ug Take 25 Uni vers ne 25 mcg 9-09 mcg by ity of tablet 08:56: mouth [place] every Medical morning. Branch donepeziL 2021-0 Yes [...] mouth ity of hr capsule 08:56: daily. [place] [address] Medical Branch doxepin 50 2021-0 Yes 50mg Take 50 mg U nivers mg capsule 09 by mouth ity o f 08:56: every [place] 02 evening. Medical Branch Magnesium 2021-0 Yes 1{tbl} Take 1 Univ ers Oxide 500 9-09 tablet by ity o f mg Tab 08:56: mouth [place] 02 every Medical evening. Branch aspirin 2021-0 Yes 325mg Take 325 Unive rs E.C. 325 mg 9-09 mg by ity of EC tablet 08:56: mouth [place] 02 every Medical evening. Branch clonazePAM 2021-0 Yes .5mg Take 0.5 Uni vers 0.5 mg 9-09 mg by ity of tablet 08:56: mouth at [place] [address] bedtime as Medical needed for Branch Insomnia. atorvastati 2021-0 Yes 80mg Take 80 mg Univers n calcium 9-09 by mouth ity of (ATORVASTAT 08:56: [place]. [place] 02 Medical Branch carvediloL 2021-0 Yes 12.5mg Take 12.5 Univers 12.5 mg 9-09 mg by ity of tablet 08:56: mouth in [place] 02 the Medical morning Branch and 12.5 mg in the evening. Take with meals. ARIPiprazol 2021-0 Yes 2.5mg Take 2.5 U nivers e 5 mg 9-09 mg by ity of tablet 08:56: mouth [place] [address] every Medical evening. Branch clopidogreL 2021-0 Yes 75mg Take 75 mg Univers 75 mg 9-09 by mouth ity of tablet 08:56: in the [place] morning. Medical Branch escitalopra 2021-0 Yes 20mg Take 20 mg Univers m oxalate 909 by mouth ity of 20 mg 08:56: in the [facility] morning. Medical Branch fenofibrate 2021-0 Yes 145mg Take 145 U nivers 145 mg 9-09 mg by ity of tablet 08:56: mouth in [place] 02 the Medical morning. Branch levothyroxi 2021-0 Yes 25ug Take 25 Uni vers ne 25 mcg 9-09 mcg by ity of tablet 08:56: mouth [place] [address] every Medical morning. Branch donepeziL 2021-0 Yes 10mg Take 10 mg Un [place] 10 mg 9-09 by mouth ity of tablet 08:56: every [place] [address] morning. Medical Branch omeprazole 2021-0 Yes 20mg Take 20 mg U nivers 20 mg 9-09 by mouth ity of capsule 08:56: in the [place] morning. Medical Branch finasteride 2021-0 Yes 5mg Take 5 mg U nivers 5 mg tablet 909 by mouth ity of 08:56: every [place] morning. Medical Branch tamsulosin 2021-0 Yes Take by Univ ers 0.4 mg 24 9-09 mouth ity of hr capsule 08:56: daily. [place] Medical Branch doxepin 50 2021-0 Yes 50mg Take 50 mg U nivers mg capsule 09 by mouth ity o f 08:56: every [place] evening. Medical Branch Magnesium 2021-0 Yes 1{tbl} Take 1 Univ ers Oxide 500 9-09 tablet by ity o f mg Tab 08:56: mouth [place] every Medical evening. Branch aspirin 2021-0 Yes 325mg Take 325 Unive rs E.C. 325 mg 9-09 mg by ity of EC tablet 08:56: mouth [place] every Medical evening. Branch clonazePAM 2021-0 Yes .5mg Take 0.5 Uni vers 0.5 mg 9-09 mg by ity of tablet 08:56: mouth at [place] bedtime as Medical needed for Branch Insomnia. atorvastati 0 Yes 80mg Take 80 mg Univers n calcium 09 by mouth ity of (ATORVASTAT 08:56: daily. [place] 02 Medical Branch carvediloL 2021-0 Yes 12.5mg Take 12.5 Univers 12.5 mg 9-09 mg by ity of tablet 08:56: mouth in [place] the Medical morning Branch and 12.5 mg in the evening. Take with meals. ARIPiprazol 2021-0 Yes 2.5mg Take 2.5 U nivers e 5 mg 9-09 mg by ity of tablet 08:56: mouth [place] every Medical evening. Branch clopidogreL 2021-0 Yes 75mg Take 75 mg Univers 75 mg 9-09 by mouth ity of tablet 08:56: in the [place] morning. Medical Branch escitalopra 2021-0 Yes 20mg Take 20 mg Univers m oxalate 909 by mouth ity of 20 mg 08:56: in the [facility] morning. Medical Branch fenofibrate 2021-0 Yes 145mg Take 145 U nivers 145 mg 9-09 mg by ity of tablet 08:56: mouth in [place] the Medical morning. Branch levothyroxi 0 Yes 25ug Take 25 Uni vers ne 25 mcg 9-09 mcg by ity of tablet 08:56: mouth every Medical morning. Branch donepeziL 2021-0 Yes 10mg Take 10 mg Un [place] 10 mg 9-09 by mouth ity of tablet 08:56: every [place] morning. Medical Branch omeprazole 2021-0 Yes 20mg [...] by mouth ity o f 08:56: every [place] evening. Medical Branch Magnesium 2021-0 Yes 1{tbl} Take 1 Univ ers Oxide 500 9-09 tablet by ity o f mg Tab 08:56: mouth every Medical evening. Branch aspirin 2021-0 Yes 325mg Take 325 Unive rs E.C. 325 mg 9-09 mg by ity of EC tablet 08:56: mouth [place] every Medical evening. Branch clonazePAM 0 Yes .5mg Take 0.5 Uni vers 0.5 mg 9-09 mg by ity of tablet 08:56: mouth at [place] [address] bedtime as Medical needed for Branch Insomnia. atorvastati 0 Yes 80mg Take 80 mg Univers n calcium 9-09 by mouth ity of (ATORVASTAT 08:56: [place]. [place] 02 Medical Branch carvediloL 2021-0 Yes 12.5mg Take 12.5 Univers 12.5 mg 9-09 mg by ity of tablet 08:56: mouth in [place] 02 the Medical morning Branch and 12.5 [...] by ity of tablet 08:56: mouth at [place] bedtime as Medical needed for Branch Insomnia. atorvastati 2021-0 Yes 80mg Take 80 mg Univers n calcium 9-09 by mouth ity of (ATORVASTAT 08:56: [place]. [place] 02 Medical Branch cefdinir 2021- No [id number] 300mg Take 1 U nivers 300 mg [...] Indication s: acute pain cefdinir 2021- No [id number] 300mg Take 1 U nivers 300 mg [...] Indication s: acute pain hyoscyamine 2021- No [id number] .125mg Take 1 Univers 0.125 mg 11-05 tablet by ity o f tablet 00:00: 04:59 mouth 4 [place] 00 :00 (four) Medical times Branch daily as needed for Pain (scale 7-10) for up to 5 days. hyoscyamine 2021- No [id number] .125mg Take 1 Univers 0.125 mg 11-05 [...] by mouth ity of tablet 18:07: every [place] [address] morning. Medical Branch ARIPiprazol 2021-0 Yes 2.5mg Take 2.5 U nivers e (ABILIFY) 9-07 mg by ity of 5 mg tablet 18:07: mouth [place] [address] every Medical evening. Branch clopidogreL 2021-0 Yes 75mg Take 75 mg Univers 75 mg 11-03 by mouth ity of tablet 18:07: in the [place] [address] morning. Medical Branch escitalopra 2021-0 Yes 20mg Take 20 mg Univers m oxalate 11-03 by mouth ity of 20 mg 18:07: in the [place] [id number] morning. Medical Branch fenofibrate 2021-0 Yes 145mg Take 145 U nivers 145 mg 9-07 mg by ity of tablet 18:07: mouth in [place] [address] the Medical morning. Branch levothyroxi 2021-0 Yes 25ug Take 25 Uni vers ne 25 mcg 11-03 mcg by ity of tablet 18:07: mouth [place] [address] every [facility] morning. Branch donepeziL 2021-0 Yes 10mg Take 10 mg Un [place] 10 mg 07 by mouth ity of tablet 18:07: every [place] [address] morning. Medical Branch omeprazole 2021-0 Yes 20mg Take 20 mg U nivers 20 mg 07 by mouth ity of capsule 18:07: in the [place] [address] morning. Medical Branch finasteride 2021-0 Yes 5mg Take 5 mg U nivers 5 mg tablet 07 by mouth ity of 18:07: every [place] [address] morning. Medical Branch tamsulosin 2021-0 Yes Take by Univ ers 0.4 mg 24 11-03 mouth ity of hr capsule 18:07: daily. [place] [address] Medical Branch doxepin 50 2021-0 Yes 50mg Take 50 mg U nivers mg capsule 07 by mouth ity o f 18:07: every [place] [address] evening. Medical Branch Magnesium 2021-0 Yes 1{tbl} Take 1 Univ ers Oxide 500 11-03 tablet by ity o f mg Tab 18:07: mouth [place] [address] every Medical evening. Branch aspirin 2021-0 Yes 325mg Take 325 Unive rs E.C. 325 mg 9-07 mg by ity of EC tablet 18:07: mouth [place] [address] every Medical evening. Branch clonazePAM 2021-0 Yes .5mg Take 0.5 Uni vers 0.5 mg 9-07 mg by ity of tablet 18:07: mouth at [place] [address] bedtime as Medical needed for Branch Insomnia. atorvastati 2021-0 Yes 80mg Take 80 mg Univers n calcium 9-07 by mouth ity of (ATORVASTAT 18:07: [place] 05 Medical Branch ARIPiprazol 2021-0 Yes 5mg Take 5 mg U nivers e 5 mg 9-07 by mouth ity of tablet 18:07: every [place] [address] morning. Medical Branch carvediloL 2021-0 Yes 12.5mg Take 12.5 Univers 12.5 mg 9-07 mg by ity of tablet 18:07: mouth in [place] [address] the Medical morning Branch and 12.5 mg in the evening. Take with meals. ARIPiprazol 2021-0 Yes 5mg Take 5 mg U nivers e 5 mg 9-07 by mouth ity of tablet 18:07: every [place] [address] morning. Medical Branch ARIPiprazol 2021-0 Yes 5mg Take 5 mg U nivers e 5 mg 9-07 by mouth ity of tablet 18:07: every [place] [address] morning. Medical Branch ARIPiprazol 2021-0 Yes 2.5mg Take 2.5 U nivers e (ABILIFY) 9-07 mg by ity of 5 mg tablet 18:07: mouth [place] [address] every Medical evening. Branch clopidogreL 2021-0 Yes 75mg Take 75 mg Univers 75 mg 07 by mouth ity of tablet 18:07: in the [place] [address] morning. Medical Branch escitalopra 2021-0 Yes 20mg Take 20 mg Univers m oxalate 907 by mouth ity of 20 mg 18:07: in the [facility] 05 morning. Medical Branch ARIPiprazol 2021-0 Yes 5mg Take 5 mg U nivers e 5 mg 9-07 by mouth ity of tablet 18:07: every [place] [address] morning. Medical Branch fenofibrate 2021-0 Yes 145mg Take 145 U nivers 145 mg 9-07 mg by ity of tablet 18:07: mouth in [place] [address] the Medical morning. Branch levothyroxi 2021-0 Yes 25ug Take 25 Uni vers ne 25 mcg 9- mcg by ity of tablet 18:07: mouth [place] [address] every Medical morning. Branch ARIPiprazol 2021-0 Yes 5mg Take 5 mg U nivers e 5 mg 907 by mouth ity of tablet 18:07: every [place] [address] morning. Medical Branch donepeziL 2021-0 Yes 10mg Take 10 mg Un [place] 10 mg 907 by mouth ity of tablet 18:07: every [place] [address] morning. Medical Branch omeprazole 2021-0 Yes 20mg Take 20 mg U nivers 20 mg 907 by mouth ity of capsule 18:07: in the [place] [address] morning. Medical Branch finasteride 2021-0 Yes 5mg Take 5 mg U nivers 5 mg tablet 07 by mouth ity of 18:07: every [place] [address] morning. Medical Branch ARIPiprazol 2021-0 Yes 5mg Take 5 mg U nivers e 5 mg 907 by mouth ity of tablet 18:07: every [place] [address] morning. Medical Branch tamsulosin 0 Yes Take by Univ ers 0.4 mg 24 907 mouth ity of hr capsule 18:07: daily. [place] [address] Medical Branch doxepin 50 2021-0 Yes 50mg Take 50 mg U nivers mg capsule 07 by mouth ity o f 18:07: every [place] [address] evening. Medical Branch Magnesium 2021-0 Yes 1{tbl} Take 1 Univ ers Oxide 500 9-07 tablet by ity o f mg Tab 18:07: mouth [place] [address] every Medical evening. Branch ARIPiprazol 2021-0 Yes 5mg Take 5 mg U nivers e 5 mg 9-07 by mouth ity of tablet 18:07: every [place] [address] morning. Medical Branch aspirin 2021-0 Yes 325mg Take 325 Unive rs E.C. 325 mg 9-07 mg by ity of EC tablet 18:07: mouth [place] [address] every Medical evening. Branch clonazePAM 2021-0 Yes .5mg Take 0.5 Uni vers 0.5 mg 9-07 mg by ity of tablet 18:07: mouth at [place] [address] bedtime as Medical needed for Branch Insomnia. ARIPiprazol 2021-0 Yes 5mg Take 5 mg U nivers e 5 mg 9-07 by mouth ity of tablet 18:07: every [place] [address] morning. Medical Branch atorvastati 2021-0 Yes 80mg Take 80 mg Univers n calcium 9-07 by mouth ity of (ATORVASTAT 18:07: [place] 05 Medical Branch ARIPiprazol 2-0 Yes 5mg Take 5 mg U nivers e 5 mg 9-07 by mouth ity of tablet 18:07: every [place] [address] morning. Medical Branch ARIPiprazol 2021-0 Yes 5mg Take 5 mg U nivers e 5 mg 9-07 by mouth ity of tablet 18:07: every [place] [address] morning. Medical Branch ARIPiprazol 2021-0 Yes 5mg Take 5 mg U nivers e 5 mg 9-07 by mouth ity of tablet 18:07: every [place] 05 morning. Medical Branch ARIPiprazol 2021-0 Yes 5mg Take 5 mg U nivers e 5 mg 9-07 by mouth ity of tablet 18:07: every [place] [address] morning. Medical Branch ARIPiprazol 2021-0 Yes 5mg Take 5 mg U nivers e 5 mg 9-07 by mouth ity of tablet 18:07: every [place] [address] morning. Medical Branch ARIPiprazol 2021-0 Yes 5mg Take 5 mg U nivers e 5 mg 9-07 by mouth ity of tablet 18:07: every [place] [address] morning. Medical Branch cyclobenzap 2-0 Yes [id number] 5mg Take 1 Univers rine 5 mg 9- 817208 tablet by ity of tablet 00:00: mouth 3 (three) Medical times Branch daily as needed for Muscle Spasms. cyclobenzap 2-0 Yes [id number] 5mg Take 1 Univers rine 5 mg 9- 790516 tablet by ity of tablet 00:00: mouth 3 00 (three) Medical times Branch daily as needed for Muscle Spasms. cyclobenzap 2022-0 Yes [id number] 5mg Take 1 Univers rine 5 mg 9-07 [id number] tablet by ity of tablet 00:00: mouth 3 00 (three) Medical times Branch daily as needed for Muscle Spasms. cyclobenzap 2-0 Yes [id number] 5mg Take 1 Univers rine 5 mg 9-07 023099 tablet by ity of tablet 00:00: mouth 3 [place] 00 (three) Medical times Branch daily as needed for Muscle Spasms. cyclobenzap 2021-0 Yes [id number] 5mg Take 1 Univers rine 5 mg 9-07 162429 tablet by ity of tablet 00:00: mouth 3 [place] 00 (three) Medical times Branch daily as needed for Muscle Spasms. cyclobenzap 2021-0 Yes [id number] 5mg Take 1 Univers rine 5 mg 9-07 001855 tablet by ity of tablet 00:00: mouth 3 [place] 00 (three) Medical times Branch daily as needed for Muscle Spasms. cyclobenzap 2021-0 Yes [id number] 5mg Take 1 Univers rine 5 mg 9-07 [id number] tablet by ity of tablet 00:00: mouth 3 [place] 00 (three) Medical times Branch daily as needed for Muscle Spasms. cyclobenzap 0 Yes [id number] 5mg Take 1 Univers rine 5 mg 9-07 368370 tablet by ity of tablet 00:00: mouth 3 [place] 00 (three) Medical times Branch daily as needed for Muscle Spasms. cyclobenzap 2021-0 Yes [id number] 5mg Take 1 Univers rine 5 mg 9-07 [id number] tablet by ity of tablet 00:00: mouth 3 [place] 00 (three) Medical times Branch daily as needed for Muscle Spasms. cyclobenzap 2021- No [id number] 5mg Take 1 Univers rine 5 mg 9-07 10-28 [id number] tablet by it y of tablet 00:00: 00:00 mouth 3 [place] 00 :00 (three) Medical times Branch daily as needed for Muscle Spasms. HYDROcodone 2021- No 4647 1{tbl} Take 1 U nivers -acetaminop 9- 09-15 tablet by it y of hen [...] 00 Starting Medi jessica tablet 1 on [facility] tablet 11/02/21 at 1645, Until Discontinu ed, Routine, Pain (scale 4-6) HYDROcodone 2021-0 Yes 1{tbl} 1 tablet, Univers -acetaminop 11-02 Oral, ity of hen (NORCO) 21:44: Q4HPRN, [place] as 10-325 mg 01 Starting Medica l tablet 1 on [facility] tablet 11/02/21 at 1644, Until Discontinu ed, Routine, Pain (scale 7-10) aspirin 2021-0 Yes 81mg 81 mg, Univers chewable 11-02 Oral, ity of tablet 81 14:00: DAILY, [place] mg 00 First dose Medical on [facility] 11/02/21 at 0900, Until Discontinu ed, Routine docusate 2021-0 Yes 100mg 100 mg, Unive rs (COLACE) 11-02 Oral, ity of capsule 100 14:00: DAILY, [place] 00 First dose Medical on [facility] 11/02/21 at 0900, Until Discontinu ed, Routine tamsulosin 2021-0 Yes .4mg 0.4 mg, Univ ers (FLOMAX) 11-02 Oral, ity of capsule 0.4 14:00: DAILY, [place] mg 00 First dose Medical on [facility] 11/02/21 at 0900, Until Discontinu ed, Routine omeprazole 2021-0 Yes 20mg 20 mg, Unive rs (PRILOSEC) 11-02 Oral, ity of capsule 20 14:00: DAILY, [place] mg 00 First dose Medical on [facility] 11/02/21 at 0900, Until Discontinu ed, Routine magnesium 2021-0 Yes 400mg 400 mg, Univ ers oxide 11-02 Oral, ity of (MAG-OX 14:00: DAILY, [place] 400) tablet 00 First dose Me dical 400 mg on [facility] 11/02/21 at 0900, Until Discontinu ed finasteride 2021-0 Yes 5mg 5 mg, Unive rs (PROSCAR) 11-02 Oral, QAM, ity of tablet 5 mg 14:00: First dose [place] 00 on [facility] 11/02/21 at Branch 0900, Until Discontinu ed, Routine fenofibrate 0 Yes 134mg 134 mg, Un [place] micronized 11-02 Oral, ity of (LOFIBRA) 14:00: DAILY, [place] capsule 134 00 First dose Me dical mg on [facility] 11/02/21 at 0900, Until Discontinu ed escitalopra 0 Yes 20mg 20 mg, Univ ers m oxalate 11-02 Oral, ity of (LEXAPRO) 14:00: DAILY, [place] tablet 20 00 First dose Medi jessica mg on [facility] 11/02/21 at 0900, Until Discontinu ed, Routine donepeziL Yes 10mg 10 mg, Univer s (ARICEPT) 11-02 Oral, QAM, ity of tablet 10 14:00: First [place] mg 00 on [facility] 11/02/21 at Branch 0900, Until Discontinu ed, Routine clopidogreL 2021-0 Yes 75mg 75 mg, Univ ers (PLAVIX) 75 11-02 Oral, ity of mg tablet 14:00: DAILY, [place] 75 mg 00 First dose Medical on [facility] 11/02/21 at 0900, Until Discontinu ed, Routine ARIPiprazol 0 Yes 5mg 5 mg, Unive rs e (ABILIFY) 11-02 Oral, QAM, it y of tablet 5 mg 14:00: First dose [place] 00 on [facility] 11/02/21 at Branch 0900, Until Discontinu ed, Routine levothyroxi 2021-0 Yes 25ug 25 mcg, Uni vers ne 11-02 Oral, ity of (SYNTHROID) 11:00: QAM-0600, [place] tablet 25 00 First dose Medi jessica mcg on [place] 11/02/21 at 0600, Until Discontinu ed, Routine atorvastati Yes 40mg 40 mg, Univ ers n (LIPITOR) 11-02 Oral, QHS, it y of tablet 40 02:00: [place] dose [place] mg 00 on [facility] 11/01/21 at Branch 2100, Until Discontinu ed, Routine cyclobenzap 2021- No 5mg 5 mg, Univ ers rine 11-02 09-09 Oral, TID, ity of (FLEXERIL) 01:00: 00:59 9 doses, [place] tablet 5 mg 00 :00 First dose Me dical on [place] 11/01/21 at 2000, Last dose on [place] 11/04/21 at 1400, Routine ketorolac No 15mg 15 mg, Unive rs (TORADOL) [...] s mg 00 First dose Medical on [facility] 11/01/21 at 1700, Until Discontinu ed, Routine ARIPiprazol Yes 2.5mg 2.5 mg, Un [place] e (ABILIFY) 11-01 Oral, QPM, it y of tablet 2.5 22:00: First dose [place] mg 00 on [facility] 11/01/21 at Branch 1700, Until Discontinu ed, Routine ondansetron Yes 4mg 4 mg, Slow Univers (ZOFRAN 11-01 IV Push, ity of (PF)) 21:01: Q6HPRN, [place] injection 4 00 Starting Medi jessica mg on [facility] 11/01/21 at 1601, Until Discontinu ed, Routine, Nausea and Vomiting (N/V) HYDROcodone 2021- No 1{tbl} 1 tablet, Univers -acetaminop 11-01 Oral, ity of hen (NORCO 21:00: 21:45 Q6HPRN, [place] as 5) 5-325 mg 47 :04 Starting Medi jessica tablet 1 on [facility] [place] tablet 11/01/21 at 1600, Until Mon11/02/21 at 1645, Routine, Pain (scale 4-6) acetaminoph Yes 650mg 650 mg, Un [place] en 11-01 Oral, ity of (TYLENOL) 21:00: Q6HPRN, [place] tablet 650 38 Starting Medic al mg on Mon Branch 11/01/21 at 1600, Until Discontinu ed, Routine, Pain (scale 1-3) clonazePAM Yes .5mg 0.5 mg, Univ ers (KLONOPIN) 11-01 Oral, ity of tablet 0.5 20:58: QHSPRN, [place] mg 14 Starting Medical on Mon Branch 11/01/21 at 1558, Until Discontinu ed, Routine, Insomnia No known No No known Unive rs medications 11-01 medication it y of 16:04: s [place] 18 [facility] Branch morpHINE (4 No 4mg 4 mg, Slow Univers mg/mL) 11-01 IV Push, ity of injection 4 15:45: 15:19 ONCE, 1 [place] mg 00 :00 dose, On Medical Mon11/01/21 Branch at 1045, CATALINA NaCl 0.9% 2021- [...] No 1{table QD Proscar 5 MG MG 07-22 0930 t} MG 00:00: 00:00 00 :00 MULTIVIT-AR 2018-0 Yes Take by Met hodi NERALS/FERR [...] 25 12 every l mcg tablet morning. MULTIVIT-AR Yes Take by Met hodi NERALS/FERR 9-10 [...] 25 12 every l mcg tablet morning. MULTIVIT-AR Yes Take by Met hodi NERALS/FERR 9-10 [...] 25 12 every l mcg tablet morning. MULTIVIT-AR Yes Take by Met hodi NERALS/FERR 9-10 [...] 25 12 every l mcg tablet morning. MULTIVIT-AR Yes Take by Met musai NERALS/FERR 9-[address] [facility] FUM 15:14: Hospita (MULTI 12 l VITAMIN ORAL) aspirin 325 Yes 325mg QD Take 325 M ethodi [...] 1 Meth gris e 8-13 CAPSULE BY (PREVACID) 00:00: MOUTH ONCE H ospita 30 [...] MINUTES BEFORE BREAKFAST SHINGRIX, Yes PHARMACIST Me kaiser GUILLAUME, 50 8-[address] mcg/0.5 mL 00:00: ED Hospita suspension 00 IMMUNIZATI l for ON reconstitut ADMINISTER ion IM ED AT TIME injection OF DISPENSING SHINGRIX, Yes PHARMACIST Me kaiser GUILLAUME, 50 8-[address] mcg/0.5 mL 00:00: ED Hospita suspension 00 IMMUNIZATI l for ON [facility]stit[facility] ADMINISTER ion IM ED AT TIME injection OF DISPENSING SHINGRIX, Yes PHARMACIST Me kaiser GUILLAUME, 50 8-[address] mcg/0.5 mL 00:00: ED Hospita suspension 00 IMMUNIZATI l for ON [place]stit[place] ADMINISTER ion IM ED AT TIME injection OF DISPENSING SHINGRIX, Yes PHARMACIST Me kaiser GUILLAUME, 50 8-[address] mcg/0.5 mL 00:00: ED Hospita suspension 00 IMMUNIZATI l for ON reconstitut ADMINISTER ion IM ED AT TIME injection OF DISPENSING SHINGRIX, Yes PHARMACIST Me kaiser GUILLAUME, 50 8-[address] mcg/0.5 mL 00:00: [...] 75 2-03 st mg tablet 00:00: Hospita l clopidogrel 2015-02 Yes Method i (PLAVIX) 75 2-03 st mg tablet 00:00: Hospita l clopidogrel 2015-02 Yes Method i (PLAVIX) 75 2-03 st mg tablet 00:00: Hospita 00 l fluorouraci 2015-02 Yes Method i l (EFUDEX) 1-29 st 5 % cream 00:00: Hospita 00 l fluorouraci 2015-02 Yes Method i l (EFUDEX) 03-27 st 5 % cream 00:00: Hospita 00 l fluorouraci 2015-02 Yes Method i l (EFUDEX) 03-27 st 5 % cream 00:00: Hospita 00 l fluorouraci 2015-02 Yes Method i l (EFUDEX) 03-27 st 5 % cream 00:00: Hospita 00 l fluorouraci 2015-02 Yes Method i l (EFUDEX) 03-27 st 5 % cream 00:00: Hospita 00 l fenofibrate 2015-02 Yes Method i (TRICOR) 1-13 st 145 MG 00:00: Hospita tablet 00 l fenofibrate 2015-02 Yes Method i (TRICOR) 1- st 145 MG 00:00: Hospita tablet 00 l fenofibrate 2015-02 Yes Method i (TRICOR) 1-13 st 145 MG 00:00: Hospita tablet 00 l fenofibrate 2015-02 Yes Method i (TRICOR) 1- st 145 MG 00:00: Hospita tablet 00 [...] MG 00:00: Hospita tablet 00 l carvedilol Yes 12.5mg Q.5D Take 12.5 Methodi (COREG) 9-[address] 12.5 MG 00:00: mouth 2 Hospita tablet 00 (two) l times a day with meals. carvedilol Yes 12.5mg Q.5D Take 12.5 Methodi (COREG) 9-[address] 12.5 MG 00:00: mouth 2 Hospita tablet 00 (two) l times a day with meals. carvedilol 2016-0 Yes 12.5mg Q.5D Take 12.5 Methodi (COREG) 9-[address] 12.5 MG 00:00: mouth 2 Hospita tablet 00 (two) l times a day with meals. carvedilol 2016-0 Yes 12.5mg Q.5D Take 12.5 Methodi (COREG) 9-[address] 12.5 MG 00:00: mouth 2 Hospita tablet 00 (two) l times a day with meals. carvedilol 2016-0 Yes 12.5mg Q.5D Take 12.5 Methodi (COREG) [...] Tamsulosin HCl 0.4 MG HCl 0.4 MG 09-30 HCl 0.4 MG 00:00 :00 Vital Signs Vital Name Observation Time Observation Value Comments Source Heart rate 2022-01-13 21:25:00 79 /min [facility] [place] [facility] Respiratory rate 2022-01-13 21:25:00 14 /min [facility] [place] [facility] Oxygen saturation in 2022-01-13 21:25:00 100 /min University of Arterial blood by [facility] Pulse oximetry Branch Body temperature 2022-01-13 20:25:00 36.72 Shannan [facility] [place] [facility] Systolic blood 2022-01-13 18:29:00 115 mm[Hg] Univer sity of pressure [place] [facility] Diastolic blood 2022-01-13 18:29:00 78 mm[Hg] Unive rsity of pressure [place] [facility] Body height 2022-01-13 15:30:00 175.3 cm [facility] [place] [facility] [place] Body weight 2022-01-13 15:30:00 83.008 kg [facility] [place] [facility] BMI 2022-01-13 15:30:00 27.02 kg/m2 [facility] [place] [facility] Systolic blood 2021-12-29 14:04:00 134 mm[Hg] Univer sity of pressure [place] [facility] Diastolic blood 2021-12-29 14:04:00 89 mm[Hg] Unive rsity of pressure [place] [facility] Heart rate 2021-12-29 14:04:00 89 /min [facility] [place] [facility] Body temperature 2021-12-29 14:04:00 36.72 Shannan [facility] [place] [facility] Respiratory rate 2021-12-29 14:04:00 16 /min [facility] [place] [facility] Oxygen saturation in 2021-12-29 14:04:00 99 /min University of Arterial blood by [facility] Pulse oximetry Branch Systolic blood 2021-12-20 18:48:00 115 mm[Hg] Univer sity of pressure [place] [facility] Diastolic blood 2021-12-20 18:48:00 75 mm[Hg] Unive rsity of pressure [place] [facility] Heart rate 2021-12-20 18:48:00 80 /min [facility] [place] [facility] Body temperature 2021-12-20 18:48:00 36.33 Shannan [facility] [place] [facility] Respiratory rate 2021-12-20 18:48:00 18 /min [facility] 2021-12-20 18:48:00 175.3 cm Universi ty [facility] Body weight 2021-12-20 18:48:00 83.825 kg [facility] BMI 2021-12-20 18:48:00 27.29 kg/m2 [facility] Oxygen saturation in 2021-12-20 18:48:00 100 /min University of Arterial blood by [facility] Pulse oximetry Branch height 2021-12-01 10:45:00 72 [in_i] [facility] weight 2021-12-01 10:45:00 189.2 [lb_av] [facility] temperature 2021-12-01 10:45:00 97.2 [degF] [facility] bmi 2021-12-01 10:45:00 25.66 kg/m2 [facility] oximetry 2021-12-01 10:45:00 98 % [facility] respiratory rate 2021-12-01 10:45:00 18 /min Comm on [facility] blood pressure 2021-12-01 10:45:00 126 mm[Hg] [facility] - systolic [facility] blood pressure 2021-12-01 10:45:00 71 mm[Hg] [facility] - diastolic [facility] Systolic blood 2021-11-05 16:00:00 155 mm[Hg] Univer sity of [facility] Diastolic blood 2021-11-05 16:00:00 85 mm[Hg] Unive rsity of pressure [facility] Heart rate 2021-11-05 16:00:00 74 /min [facility] Respiratory rate 2021-11-05 16:00:00 18 /min Univ [facility] Oxygen saturation in 2021-11-05 16:00:00 96 /min University of Arterial blood by [facility] Pulse oximetry Branch Body temperature 2021-11-05 13:36:00 37.33 Shannan [facility] Body weight 2021-11-05 13:36:00 97.523 kg [facility] BMI 2021-11-05 13:36:00 29.99 kg/m2 [facility] Systolic blood 2021-11-03 20:55:00 127 mm[Hg] [facility] Diastolic blood 2021-11-03 20:55:00 77 mm[Hg] Unive [facility] Heart rate 2021-11-03 20:55:00 80 /min [facility] Body temperature 2021-11-03 20:55:00 36.67 Shannan [facility] Respiratory rate 2021-11-03 20:55:00 17 /min [facility] Oxygen saturation in 2021-11-03 20:55:00 96 /min [facility] Arterial blood by [facility] Pulse oximetry Branch Body height 2021-11-01 22:44:00 180.3 cm [facility] Body weight 2021-11-01 22:44:00 97.523 kg [facility] BMI 2021-11-01 22:44:00 29.99 kg/m2 [facility] Procedures Procedure Date / Time Performing Clinician Source Performed ABORH CONFIRMATION (LAB 2022-01-13 17:17:00 Gustavo Radford [facility] ONLY) [facility] HB ABO GROUPING 2022-01-13 16:05:00 Prabhakar [facility] BASIC METABOLIC PANEL 2022-01-13 16:03:00 Gustavo Radford [facility] (NA, K, CL, CO2, GLUCOSE, Medica l Branch BUN, CREATININE, CA) CBC WITH DIFF 2022-01-13 16:03:00 Prabhakar [facility] PROTHROMBIN TIME / INR 2022-01-13 16:03:00 [facility] DEXA AXIAL (HIP AND 2022-01-10 16:22:13 Madina Hilton [facility] SPINE) [facility] BASIC METABOLIC PANEL 2021-12-29 14:07:00 Madina Hilton [facility] (NA, K, CL, CO2, GLUCOSE, Medica l Branch BUN, CREATININE, CA) CBC WITHOUT DIFF 2021-12-29 14:07:00 Madina Hilton [facility] PROTHROMBIN TIME / INR 2021-12-29 14:07:00 [facility] ASSIGNMENT OF BENEFITS 2021-12-20 18:42:17 Doctor Unassigned, Un [facility] PATIENT QUESTIONNAIRE 2021-11-10 05:01:00 Doctor Unassigned, [facility] BASIC METABOLIC PANEL 2021-11-05 13:56:00 Gina Willoughby [facility] (NA, K, CL, CO2, GLUCOSE, Medica l Branch BUN, CREATININE, CA) CBC WITH DIFF 2021-11-05 13:56:00 Gina Willoughby [facility] PROTHROMBIN TIME / INR 2021-11-05 13:56:00 Gina Willoughby Un [facility] ACTIVATED PARTIAL 2021-11-05 13:56:[address] [facility] CONSENT/REFUSAL FOR 2021-11-05 13:42:38 Doctor Sam [facility] DIAGNOSIS AND TREATMENT [facility] URINALYSIS 2021-11-05 13:38:00 Gina Willoughby [facility] MR LUMBAR SPINE WO 2021-11-02 13:53:19 Stan Tate [facility] BASIC METABOLIC PANEL 2021-11-02 10:04:00 Camilla Boateng [facility] (NA, K, CL, CO2, GLUCOSE, Medica l Branch BUN, CREATININE, CA) CBC WITH DIFF 2021-11-02 10:04:00 Camilla Boateng [facility] URINALYSIS 2021-11-02 01:21:00 Miriam [facility] POCT GLUCOSE (AUTOMATED) 2021-11-01 21:21:00 Camilla Boateng [facility] LIPASE 2021-11-01 15:25:00 Fernando Woodward [facility] MAGNESIUM 2021-11-01 15:25:00 Miriam [facility] TROPONIN I 2021-11-01 15:25:00 Fernando Woodward [facility] FREE T4 2021-11-01 15:25:00 Miriam [facility] THYROID STIMULATING 2021-11-01 15:25:00 Fernando Woodward [facility] HORMONE [facility] COMP. METABOLIC PANEL 2021-11-01 15:25:00 Fernando Woodward [facility] ([id number]) Medical Branch PROTHROMBIN TIME / INR 2021-11-01 15:25:00 Fernando Woodward [facility] ACTIVATED PARTIAL 2021-11-01 15:25:00 Fernando Woodward [facility] THRMPLAS PACHECO [facility] CT CERVICAL SPINE WO 2021-11-01 15:16:24 Fernando Woodward [facility] CONTRAST [facility] CT HEAD WO CONTRAST 2021-11-01 15:16:24 Fernando Woodward [facility] CT LUMBAR SPINE WO 2021-11-01 15:16:24 Fernando Woodward [facility] CONTRAST [facility] CT THORACIC SPINE WO 2021-11-01 15:16:24 Fernando Woodward [facility] COVID-19 (ID NOW RAPID 2021-11-01 14:32:00 Fernando Woodward [facility] TESTING) Medical Branch LAB ONLY COVID 2021-11-01 14:32:00 Fernando Woodward [facility] INTERPRETATION [facility] CBC WITH DIFF 2021-11-01 14:32:00 Fernando Woodward [facility] NOTICE OF PRIVACY 2021-11-01 14:19:51 Doctor Flaco, [facility] 2021-11-01 14:19:26 Doctor Flaco, [facility] DIAGNOSIS AND TREATMENT [facility] HB ECG ROUTINE & RHYTHM 2021-11-01 14:17:52 [facility] 2021-11-01 05:01:00 Doctor Flaco, [facility] PATIENT QUESTIONNAIRE 2021-08-31 05:01:00 Doctor Unassigned, [facility] Plan of Care Planned Activity Planned Date Details Comments Source Future Scheduled 2022-08-03 [facility] Test 05:35:18 malignant neoplasm of colon (procedure) [code = 334175409] Future Scheduled 2022-08-03 SHINGLES VACCINES (1 [facility] Test 05:35:18 of 2) [code = SHINGLES VACCINES (1 of 2)] Future Scheduled 2022-08-03 INFLUENZA VACCINE [facility] Test 05:35:18 [code = INFLUENZA VACCINE] Future Scheduled 2022-08-03 [facility] Test 05:35:18 malignant neoplasm of colon (procedure) [code = 075877566] Future Scheduled 2022-08-03 [facility] Test 05:35:18 malignant neoplasm of colon (procedure) [code = 061514699] Future Scheduled 2022-08-03 [facility] Test 05:35:18 malignant neoplasm of colon (procedure) [code = 023469778] Future Scheduled 2022-08-03 COVID-19 VACCINE (#1) [facility] Test 05:35:18 [code = COVID-19 VACCINE (#1)] Future Scheduled 2022-08-03 65+ PNEUMOCOCCAL [facility] Test 05:35:18 VACCINE (1 - PCV) [code = 65+ PNEUMOCOCCAL VACCINE (1 - PCV)] Future Scheduled 2022-08-03 Hepatitis C screening [facility] Test 05:35:18 (procedure) [code = 572367626] Future Scheduled 2022-08-03 [facility] Test 05:35:18 malignant neoplasm of colon (procedure) [code = 734913092] Future Scheduled 2022-08-03 [facility] Test 05:35:18 malignant neoplasm of colon (procedure) [code = 586183008] Future Scheduled 2022-08-03 SHINGLES VACCINES (1 [facility] Test 05:35:18 of 2) [code = SHINGLES VACCINES (1 of 2)] Future Scheduled 2022-08-03 INFLUENZA VACCINE [facility] Test 05:35:18 [code = INFLUENZA VACCINE] Future Scheduled 2022-08-03 [facility] Test 05:35:18 malignant neoplasm of colon (procedure) [code = 810492951] Future Scheduled 2022-08-03 [facility] Test 05:35:18 malignant neoplasm of colon (procedure) [code = 468487711] Future Scheduled 2022-08-03 [facility] Test 05:35:18 malignant neoplasm of colon (procedure) [code = 345063631] Future Scheduled 2022-08-03 COVID-19 VACCINE (#1) [facility] Test 05:35:18 [code = COVID-19 VACCINE (#1)] Future Scheduled 2022-08-03 65+ [facility]OCOCCAL [facility] Test 05:35:18 VACCINE (1 - PCV) [code = 65+ PNEUMOCOCCAL VACCINE (1 - PCV)] Future Scheduled 2022-08-03 [facility] Test 05:35:18 (procedure) [code = 088298511] Future Scheduled 2022-08-03 [facility] Test 05:35:18 malignant neoplasm of colon (procedure) [code = 072374141] Future Scheduled 2022-06-01 COVID-19 VACCINE (#1) [facility] Test 07:25:05 [code = COVID-19 VACCINE (#1)] Future Scheduled 2022-06-01 65+ [facility]OCOCCAL [facility] Test 07:25:05 VACCINE (1 - PCV) [code = 65+ PNEUMOCOCCAL VACCINE (1 - PCV)] Future Scheduled 2022-06-01 Hepatitis C screening [facility] Test 07:25:05 (procedure) [code = 339283498] Future Scheduled 2022-06-01 [facility]ING [facility] Test 07:25:05 [code = COLONOSCOPY SCREENING] Future Scheduled 2022-06-01 SHINGLES VACCINES (1 [facility] Test 07:25:05 of 2) [code = SHINGLES VACCINES (1 of 2)] Future Scheduled 2022-06-01 INFLUENZA VACCINE [facility] Test 07:25:05 [code = INFLUENZA VACCINE] Future Scheduled 2022-02-09 COVID-19 VACCINE (#1) [facility] Test 06:47:11 [code = COVID-19 VACCINE (#1)] Future Scheduled 2022-02-09 65+ [facility]OCOCCAL [facility] Test 06:47:11 VACCINE (1 - PCV) [code = 65+ PNEUMOCOCCAL VACCINE (1 - PCV)] Future Scheduled 2022-02-09 Hepatitis C screening [facility] Test 06:47:11 (procedure) [code = 491226482] Future Scheduled 2022-02-09 COLONOSCOPY SCREENING [facility] Test 06:47:11 [code = COLONOSCOPY SCREENING] Future Scheduled 2022-02-09 SHINGLES VACCINES (1 [facility] Test 06:47:11 of 2) [code = SHINGLES VACCINES (1 of 2)] Future Scheduled 2022-02-09 INFLUENZA VACCINE [facility] Test 06:47:11 [code = INFLUENZA VACCINE] Future Scheduled 2022-02-09 COVID-19 VACCINE (#1) [facility] Test 06:47:11 [code = COVID-19 VACCINE (#1)] Future Scheduled 2022-02-09 65+ PNEUMOCOCCAL [facility] Test 06:47:11 VACCINE (1 - PCV) [code = 65+ PNEUMOCOCCAL VACCINE (1 - PCV)] Future Scheduled 2022-02-09 Hepatitis C screening [facility] Test 06:47:11 (procedure) [code = 842856659] Future Scheduled 2022-02-09 COLONOSCOPY SCREENING [facility] Test 06:47:11 [code = COLONOSCOPY SCREENING] Future Scheduled 2022-02-09 SHINGLES VACCINES (1 [facility] Test 06:47:11 of 2) [code = SHINGLES VACCINES (1 of 2)] Future Scheduled 2022-02-09 INFLUENZA VACCINE [facility] Test 06:47:11 [code = INFLUENZA VACCINE] Encounters Start End Encounter Admission Attending Care Care Encounter Source Date/Time Date/Time Type Type Clinicians Facility Department ID 2021-12-01 Outpatient [facility] [id number] Common 10:33:03 [facility] 2022-06-15 2022-06-15 [place] [id number] [place] 00:00:00 00:00:00 [id number] [facility] 2022-06-15 2022-06-15 [place] [place] [id number] [place] 00:00:00 00:00:00 [address]7577 [facility] 2022-05-25 2022-06-10 Inpatient EM Boriskie, HCAB[facility] [id number] [facility] 03:34:00 13:28:00 Taiwo 10 [facility] 2022-06-08 2022-06-08 [place]patient [place] U [id number] [place] 00:00:00 00:00:00 99825 [facility] 2022-05-16 2022-05-18 Emergency [facility] [id number] [facility] 20:35:00 15:15:00 Lakhwinder 28 [facility] armand [facility] 2022-01-13 2022-01-13 Outpatient R ADY RUSSELL [facility] [id number] Univers 08:48:05 23:59:00 MARLON SYED ity of [facility] 2022-01-13 2022-01-13 [facility] Ady Russell [facility] 1.2 .840.114 [id number] Univers 08:48:05 23:59:00 Encounter Gustavo Radford [facility] 350.1.13.10 ity of [place] 4.2.7.[address] [facility] [id number] [address] ([facility]) 2022-01-10 2022-01-10 Outpatient R MADINA HILTON [facility] [id number] Univers 10:01:41 23:59:00 ity of [facility] 2022-01-10 2022-01-10 [facility] Madina Hilton [facility] 1.2.840.114 [id number] Univers 10:01:41 23:59:00 Encounter SHREYA 350.1.13.10 [place] [id number] [facility] 800 Branch 2021-12-29 2021-12-29 [facility] 1.2.840.114 [id number] Univers 08:44:14 23:59:00 Encounter Warren Russell 350.1.13.10 ity of [facility] 4.2.7.2.686 [place] [id number] [place] [id number] Branch 2021-12-29 2021-12-29 Outpatient R MARLON SYED [facility] U TMB [id number] Univers 00:00:00 23:59:00 MARLON SYED [facility] 2021-12-27 2021-12-27 Outpatient R MARLON SYED [facility] U TMB [id number] Univers 00:00:00 00:00:00 MARLON SYED [facility] 2021-12-24 2021-12-24 Outpatient R MADINA HILTON [facility] [id number] Univers 08:03:05 23:59:00 ity of [facility] 2021-12-24 2021-12-24 [facility] Madina Hilton [facility] 1.2.840.114 [id number] Univers 08:03:05 23:59:00 Encounter [facility] HEALTH 350.1. 13.10 ity of [facility] 4.2.7.2.[place] [phone] [facility] 803 Branch 2021-12-20 2021-12-20 Office [facility] 1.2.840.114 [id number] Univers 14:00:00 14:30:00 Visit KIMBERLEY Russell 350.1.13.10 i ty of [place] [id number] [address] OFFICE BUILDING 2021-12-20 2021-12-20 Outpatient R MARLON SYED [facility] U TMB [id number] Univers 14:00:00 14:00:00 MARLON SYED [facility] 2021-12-20 2021-12-20 Orders Doctor KWAME 1.2.840.114 [id number] Univers 00:00:00 00:00:00 Only Unassigned, CHRISTINE 350.1.13.10 ity of [place] [facility] 4.2.7.2.686 [place] as [id number] [facility] 009 Branch 2021-12-01 2021-12-01 [facility] [id number] Co mmon 00:00:00 00:00:00 VISIT EST Spir it PT LEVEL 3 - [facility] 2021-11-10 2021-11-10 Orders Doctor KWAME 1.2.840.114 [id number] Univers 00:00:00 00:00:00 Only Unassigned, CHRISTINE 350.1.13.10 ity of [place] [facility] 4.2.7.2.686 [place] as [phone] [facility] 009 Branch 2021-11-05 2021-11-05 Emergency [facility] E[facility] [id number] Univers 08:34:00 11:10:00 GINA ity [facility] 2021-11-05 2021-11-05 Emergency [facility] 1.2.840.114 [id number] Univers 08:34:00 11:10:00 Ginahilda CASH 350.1.13.10 ity of [place]2.7.2.[place] [id number] [facility] 084 Branch 2021-11-04 2021-11-04 Transition ARTEMIO Patel 1.2.840.114 [id number] Univers 00:00:00 00:00:00 of Care Lenora SALAS 350.1.13.10 it y of [place] 4[place]2.7.[place] [id number] [facility] 403 Branch 2021-11-04 2021-11-04 Telephone Miriam [facility] 1.2.648.669 [id number] Univers 00:00:00 00:00:00 [facility] 350.1.13.10 it y of [place]2.7.2.686 [place] [id number] [place] [address] Branch ([facility]) 2021-11-01 2021-11-03 Outpatient U MIRIAM [facility] [id number] Univers 09:12:00 18:06:00 CAMILLA itwarren [facility] 2021-11-01 2021-11-03 Emergency Fernando Woodward [facility] 1.2.84 0.114 [id number] Univers 09:12:00 18:06:00 Camilla Boateng 350.1.13.10 [place]y of [place] [id number] [place] [address] Branch ([facility]) 2021-08-31 2021-08-31 Orders Doctor KWAME 1.2.840.114 [id number] Univers 00:00:00 00:00:00 Only Unassigned, CHRISTINE 350.1.13.10 ity of [place] [facility] 4.2.7.2.686 [place] as [phone] [facility] 009 Branch 2019-12-03 2019-12-03 Outpatient [facility] [id number] [address] [place] [address] 00:00:00 00:00:00 BERTHA [address] Results Test Description Test Time Test Comments Results Result Comments Source COVID 19 INHOUSE AG 2022-06-10 11:27:00 Test Item Value Reference Range Interpretation Comme nts COVID 19 INHOUSE AG (test code = [id number]) NEGATIVE NEGATIVE STAT COVID ORDER PER RN JS, [id number] 06/10/22 1107BASIC METABOLIC PANEL 2022-06-09 10:52:00 Test [...] mg/dL 8.5-10.1 L = CA) CBC W/AUTO [id number] 10:29:00 Test Item Value Reference Range Interpretation [...] (test code NO = MDIFF) BASIC METABOLIC [id number] 04:40:00 Test Item Value Reference Range Interpretation [...] mg/dL 8.5-10.1 L = CA) CBC W/AUTO [id number] 04:17:00 Test Item Value Reference Range Interpretation [...] 0.00 K/mm3 0.0-0.1 N NRBC#) BASIC METABOLIC [id number] 06:02:00 Test Item Value Reference Range Interpretation [...] mg/dL 8.5-10.1 L = CA) CBC W/AUTO [id number] 05:36:00 Test Item Value Reference Range Interpretation [...] = 0.00 K/mm3 0.0-0.1 N NRBC#) - US RETRO [id number] 17:44:00 [facility] 1945 Sex: M Name: KAYLA HO [facility] : 1945 Age/S: 76 / M [address] [facility] Unit #: [id number] Loc: [place] [address] Phys: Adonis Womack NP Acct: [id number] Dis Date: Status: ADM IN PHONE #:[phone] Exam Date: 06/03/2022 1721 FAX #: [phone] Reason: acute kidney failure EXAMS: CPT CODE: [id number] US RETRO LTD 43608 REASON FOR EXAM: acute kidney failure EXAM ORDER DATE: 06/03/2022 9:50 AM Attending Anne: Adonis Womack NP PROCEDURE: - US RETRO LTD Comparison: CT of the chest May 25, 2022 which includes the upper abdomen FINDINGS: Right kidney: Absent Left kidney: parenchyma echogenicity: Normal echogenicity size: 13.7 x 7.6 x 5.2 cm. stones: none cysts/masses: none hydronephrosis: none Urinary Bladder: Decompressed by Leyva catheter which limits evaluation. 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 There is compensatory hypertrophy of the left kidney. Otherwise the left kidney is sonographically unremarkable. Location: [facility] at 1744 Reported and signed by: Sai Redman MD CC: Taiwo Reynolds MD; Adonis Womack NP; Jaqueline Zhao NP Technologist: Suzette Aquino Trnscb Date/Time: 06/03/2022 (1743) [email or web address] Print D/T: S: 06/03/2022 (1746) Probe: PAGE 1 Signed ReportARTERIAL BLOOD [id number] 17:20:00 Test Item Value Reference Range Interpretation Comments ARTERIAL BLOOD GAS PH 7.50 7.35-7.45 H (test code = PHA) ARTERIAL BLOOD GAS PCO2 20.2 mm Hg 35-45 LL Resu lts called (test code = PCO2A) to and r ead back by [facility] 06/03/2022; by ARTERIAL BLOOD GAS PO2 70.3 mmHg 80-100 L (test code = PO2A) BICARBONATE TOTAL HCO3 15.4 mmol/L 23.0-27.0 L (test code = HCO3) BASE EXCESS (test code = -5.0 mmol/L -3.0-5.0 LL Res ults called YEISON) to and read back by Pernell 06/03/2022; by ABG O2 SATURATION (test 94.8 % 90.0-98.0 [...] % vol 18.0-22.0 N O2CT) BASIC METABOLIC [id number] 14:01:00 Test Item Value Reference Range Interpretation [...] 8.4 mg/dL 8.5-10.1 L = CA) URINALYSIS [id number] 13:00:00 Test Item Value Reference Range Interpretation Comments UA COLOR (test code = YELLOW YELLOW COLU) UA APPEARANCE (test CLEAR CLEAR IS THE S AMPLE code = APPU) FROM ER OR L&D? Y IF THE ANSWER I S NO,PLEASE DOCUMENT TWO RN SIGNATURES HERE - Armand/Ana MarquisLAB.LT 06/03/22 1259 UA GLUCOSE DIPSTICK NEGATIVE mg/dL [...] code = BACU) SPECIMEN COMMENTS: nCOMMENTS TO RN TRANSITIONAL: nUrine Source? MidstreamBASIC METABOLIC [id number] 09:13:00 Test Item Value Reference Range Interpretation [...] code 8.4 mg/dL 8.5-10.1 L = CA) [id number] 09:13:00 Test Item Value Reference Range Interpretation Comments MAGNESIUM (test code = MAG) 2.1 mg/dL 1.8-2.4 N CBC W/AUTO [id number] 08:33:00 Test Item Value Reference Range Interpretation [...] N NRBC#) - XR ABDOMEN AP 1 [id number] 15:13:00 [facility]Name: KAYLA HO : 1945 Sex: M FAX: Taiwo Reynolds MD [phone] [place]: St: [facility] FAX: Evon Dorado [phone] FAX:Jaqueline Zhao NP Name: KAYLA HO [facility] : 1945 Age/S: 76/M [address] Unit #: [id number] Loc: V.[address] [place] [address] Phys: Evon Dorado Acct: [id number] Dis Date: Status: ADM IN PHONE #: [phone] Exam Date: 05/30/2022 1443 FAX #: [phone] Reason: Distention EXAMS: CPT CODE: [id number] XR ABDOMEN AP 1 V 09053 HISTORY: Distention PROCEDURE: - XR ABDOMEN AP 1 V COMPARISON: None FINDINGS: Nonobstructive bowel gas pattern. No significant stool burden. No intra-abdominal mass effect. No abnormal calcifications are observed. 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 There are degenerative changes in the bilateral hips. IMPRESSION: No radiographic evidence of acute intra-abdominalprocess. Location: [facility] at 1513 Reported and signed by: Sai Redman MD CC: Taiwo Reynolds MD; Evon Dorado; Jaqueline Zhao NP Technologist: BRICE TIAN [facility] [place] Date/Time/By: 05/30/2022 (1513) : By: [email or web address] Orig Print D/T: S: 05/31/2022 (0940) PAGE 1 Signed ReportBASIC METABOLIC [id number] 07:22:00 Test Item Value Reference Range Interpretation [...] mg/dL 8.5-10.1 N = CA) CBC W/AUTO [id number] 06:05:00 Test Item Value Reference Range Interpretation [...] 0.00 K/mm3 0.0-0.1 N NRBC#) Novel Coronavirus [id number] 21:12:00 Test Item Value Reference Range Interpretation Comments Novel Coronavirus Negative Negative Positive r esults are 2019 Inhouse (test indicativ e of the presence code = [id number]) ofSARS-CoV -2 RNA, clinical correlation wit h [...] det ection of nucleic acids f rom klsGBGU-BxL-7 v irus and diagnosis of SA RS-CoV-2 virusinfection. It is an Emergency Use Authorization ( EUA) testauthorized by the U.S. FDA. Novel Coronavirus [id number] 21:12:00 Test Item Value Reference Range Interpretation Comments Novel Coronavirus Negative Negative Positive r esults are 2019 Inhouse (test indicativ e of the presence code = VGXTJ03JU) ofSARS-CoV -2 RNA, clinical correlation wit h [...] det ection of nucleic acids f rom pujQSDE-MuN-5 v irus and diagnosis of SA RS-CoV-2 virusinfection. It is an Emergency Use Authorization ( EUA) testauthorized by the U.S. FDA. BASIC METABOLIC [id number] 08:50:00 Test Item Value Reference Range Interpretation [...] mg/dL 8.5-10.1 N = CA) CBC W/AUTO [id number] 08:25:00 Test Item Value Reference Range Interpretation [...] NO = MDIFF) - XR CHEST 1 [id number] 11:37:00 [facility] 1945 Sex: M FAX: Taiwo Reynolds MD [phone] [place]: B St: ADM FAX: Evon Dorado [phone] FAX:Jaqueline Zhao WRITING CENTER DIRECTOR Name: KAYLA OH [facility] : 1945 Age/S: 76/M [address] [facility] Unit #: [id number] Loc: [place] [address] Phys: Evon Dorado Acct: [id number] Dis Date: Status: ADM IN PHONE #: [phone] Exam Date: 05/27/2022 1130 FAX #: [phone] Reason: Respiratory decompensation, com parison EXAMS: CPT CODE: [id number] XR CHEST 1 V 47703 HISTORY: Respiratory decompensation. COMPARISON: May 25, 2022. Location: [facility]. No acute infiltrates, effusion or congestion is noted. Suboptimal inspiration. Dependent changes. Cardiomegaly. Elevated left hemidiaphragm with markedly distended air-filled stomach. IMPRESSION: No acute infiltrates, effusion or congestion. Suboptimal inspiration. Markedly distended air-filled stomach. at 1137 Reported and signed by: Renato Padilla M.D. CC: Taiwo Reynolds MD; Evon Dorado; Jaqueline Zhao NP Technologist: STUDENT TECHNOLOGIST; Gretchen CUNNINGHAM(R) Trnscrd Date/Time/By: 05/27/2022(1137) : By: [email or web address] Orig Print D/T: S: 05/27/2022 (4768) PAGE 1 Signed [id number] 07:02:00 Test Item Value Reference Range Interpretation Comments GLUBED (test code = 74 mg/dL 74-106 N Performe d by certified GLUBED) complaint operator at [facility] BASIC METABOLIC [id number] 02:02:00 Test Item Value Reference Range Interpretation [...] mg/dL 8.5-10.1 L = CA) CBC W/AUTO [id number] 01:36:00 Test Item Value Reference Range Interpretation [...] K/mm3 0.0-0.1 N NRBC#) - CT CHEST W/[id number] 07:10:00 [facility]Name: KAYLA HO : 1945 Sex: M Name: KAYLA HO [facility] : 1945 Age/S: 76 / M [address] Unit #: [id number] Loc: [place] [address] Phys: Klaudia Osborn MD Acct: [id number] Dis Date: Status: ADM IN PHONE #: [phone] Exam Date: 05/25/2022455 FAX #: [phone] Reason: pneumonia vs other pathologic cause of hypoxia EXAMS: CPT CODE: [id number] CT CHEST W/CONTRAST 07064 HISTORY: Pneumonia. COMPARISON: Chest x-ray from same day. Location: [facility]. CT chest without contrast: CT dose reduction [...] of the LAD and the circumflex arteries and to lesser extent the right coronary artery. Visualized [...] protocol for further evaluation. Unremarkable aorta. Lungs are clear of infiltrates, effusion or congestion. No pathologic adenopathy. at 0710 Reported and signed by: Renato Padilla M.D. PAGE 1 SignedReport (CONTINUED) Name: KAYLA HO [facility] : 1945 Age/S: 76 / M [address] [facility] Unit #: [id number] Loc: [place] [address] Phys: Klaudia Osborn MD Acct: [id number] Dis Date: Status: ADM IN PHONE #: [phone] Exam Date: 05/25/2022455 FAX #: [phone] Reason: pneumonia vsother pathologic cause of hypoxia EXAMS: CPT CODE: [id number] CT CHEST W/CONTRAST 49788 (Continued) CC: Klaudia Osborn MD; Jaqueline Zhao NP Technologist:Lyric Ceballos RT(R) CTDI: DLP: Trnscb Date/Time: 05/25/2022 (0710) [email or web address] Orig Print D/T: S: 05/25/2022 (0861) PAGE 2 Signed ReportCOVID 19 INHOUSE [id number] 04:11:00 Test Item Value Reference Range Interpretation Comments COVID 19 INHOUSE AG (test code = NEGATIVE NEGATIVE [id number]) INFLUENZA A B [id number] 04:11:00 Test Item Value Reference Range Interpretation Comments INFLUENZA A POC (test code = Negative Negative INFLAAG) INFLUENZA B POC (test code = Negative Negative INFLBAG) SOURCE: [id number] 02:22:00 Test Item Value Reference Range Interpretation Comments TROPONIN-HS (test 10.820 pg/mL 0-45 N CAUTION: U nits of the code = TROPI) current test m ethodology (pg/mL)differ f rom the prior test meth odology (ng/mL) by a fa ctorof 1000. BASIC METABOLIC [id number] 02:22:00 Test Item Value Reference Range Interpretation [...] recommended for sebastian for GFRby the N [facility] Kidney Foundati on for Adults.The GFR will [...] mg/dL 8.5-10.1 N = CA) HEPATIC FUNCTION [id number] 02:22:00 Test Item Value Reference Range Interpretation [...] due ALKP) to change in reagent. LACTIC [id number] 02:17:00 Test Item Value Reference Range Interpretation Comments LACTIC ACID (test code = LACT) 0.7 mmol/L 0.4-1.9 N URINALYSIS [id number] 01:56:00 Test Item Value Reference Range Interpretation Comments UA COLOR (test code = YELLOW YELLOW COLU) UA APPEARANCE (test CLEAR CLEAR IS THE S AMPLE code = APPU) FROM ER OR L&D? Y IF THE ANSWER I S NO,PLEASE DOCUMENT TWO RN SIGNATURES HERE - [place].SP61 05/25/22 0156 UA GLUCOSE DIPSTICK NEGATIVE mg/dL [...] #/LPF FEW MUCU) Indication for culture: RiskForSepsis-no [facility] W/AUTO [id number] 01:52:00 Test Item Value Reference Range Interpretation [...] 0.0-0.1 N NRBC#) - XR CHEST 1 [id number] 01:08:00 [facility])Name: KAYLA HO : 1945 Sex: M FAX: Terry Yao MD [phone] [place]: St: REG Name: KAYLA HO [facility] : 1945 Age/S: 76/M [address] [facility] Unit #: [id number] Loc: [place] [address] Phys: Terry Yao MD Acct: [id number] Dis Date: Status: REG ER PHONE #: [phone] Exam Date: 05/25/202252 FAX #: [phone] Reason: CODE SEPSIS EXAMS: CPT CODE: [id number] XR CHEST 1 V 23423 Dictation location: H3 Chest x-ray exam, single [...] within normal limits. IMPRESSION: Probable atelectatic changes versus less likely pneumonia medially at the left lung base and patchy interstitial infiltrate and mild elevation left hemidiaphragm Lung volume is shallow limiting assessment Prominence of the aortic knob. Cannot entirely exclude aneurysmal dilatation of the thoracic aorta. at 0108 Reported and signed by: Mamie Snow. CC: Terry Yao MD Technologist: Keisha Willis RT(R) Trnscrd Date/Time/By: 05/25/2022 (0108) : By: [email or web address] Orig Print D/T: S: 05/25/2022 (0111) PAGE 1 Signed ReportCOVID 19 INHOUSE [id number] 06:17:00 Test Item Value Reference Range Interpretation Comments COVID 19 INHOUSE AG NEGATIVE Negative Per manu facturer, (test code = negative result s should [id number]) be treated aspr esumptive and, if inconsi [...] symptoms co nsistent with COVID-19. GLUCOSE BEDSIDE [id number] 17:07:00 Test Item Value Reference Range Interpretation Comments GLUCOSE BEDSIDE TESTING (test code = 77 mg/dL 70-110 N GLUBED) GLUCOSE BEDSIDE [id number] 10:14:00 Test Item Value Reference Range Interpretation Comments GLUCOSE BEDSIDE TESTING (test code = 89 mg/dL 70-110 N GLUBED) UA RFLX MICR CULT IF [id number] 08:39:00 Test Item Value Reference Range Interpretation [...] URINE: CLEAN CATCH DRUGS OF ABUSE SCREEN [id number] 08:39:00 Test Item Value Reference Range Interpretation [...] RiskForSepsis-no oth srcSOURCE OF URINE: CLEAN CATCH [id number] 22:02:00 Test Item Value Reference Range Interpretation Comments ALCOHOL (test code = ALC) < 3 MG/DL 0-10 N Last Dose Date: 02/28/00Last Dose Time: 0000BASIC METABOLIC [id number] 22:02:00 Test Item Value Reference Range Interpretation [...] recommended for sebastian for GFRby the N [facility] for Adults.The GFR will not calculate i f the sex is unknown or if thepatient's ag e is <18 years. CREATININE (test 1.4 MG/DL 0.8-1.3 H code = CREAT) CALCIUM (test code 9.3 MG/DL 8.5-10.1 N = CA) Last Dose Date: 02/28/00Las Dose Time: HEPATIC FUNCTION [id number] 22:02:00 Test Item Value Reference Range Interpretation [...] ALKP) Last Dose Date: 02/28/00Las Dose Time: [id number] 22:02:00 Test Item Value Reference Range Interpretation Comments ACETAMINOPHEN (test code = ACET) <2.0 mcG/ML 10.0-30.0 L Last Dose Date: 02/28/00 Dose Time: [id number] 21:55:00 Test Item Value Reference Range Interpretation Comments SALICYLATE (test code < 1.7 MG/DL See_Comment L [Auto mated message] = DANISH) The system [email or web address] generated this result transmitted ref erence range: 2.8-20.0 THER. The reference r ruben was not used to interpret this result as normal/abnor mal. CBC W/AUTO [id number] 21:50:00 Test Item Value Reference Range Interpretation [...] CRITERIA = MDIFF) - CT HEAD/BRAIN W/O [id number] 21:50:00 [facility] 1945 Sex: M Name: KAYLA HO [facility] : 1945 Age/S: 76 / M [id number] Unit #: [id number] Loc: [place] [address] Phys: Lakhwinder Davis MD Acct: [id number] Dis Date: Status: PRE ER PHONE #: [phone] Exam Date: 05/16/2022 2143 FAX #: Reason: homicidal ideation, dementia EXAMS: CPT: [id number] CTHEAD/BRAIN W/O CONT 47783 Exam: CT head without contrast. Location: H 12 History: homicidal ideation, dementia Technique: Unenhanced spiral slices were taken from [...] A few scattered microinfarcts are seen in theperiventricular and subcortical deep white matter. The brain parenchyma and the CSF spaces are otherwise unremarkable. No mass, midline shift, hemorrhage, edema or hydrocephalus is seen. The visualizedparanasal sinuses are clear. The mastoid air cells are well pneumatized. The bony calvarium is intact. Impression: 1. No acute intracranial abnormality. 2. Atrophy. 3. Atherosclerotic microvascular disease. 4. Otherwise unremarkable exam. at 2150 Reported and signed by: Fam Oneil M.D. CC: Technologist:RT Leila(R) CTDI: DLP: Trnscb Date/Time: 05/16/2022 (2149) [email or web address] Orig Print D/T: S: 05/16/2022 (2152) PAGE 1 Signed ReportABORH Confirmation (Lab Only)2022-01-13 18:00:24 Test Item Value Reference Range Interpretation Comments ABO & RH (test code O Negative Performe d at [place] = 20) Laboratory [facility] [address] [place] [address] 4Toll Free: [phone] 266CLIA No. [id number] [facility] (Lab Only)2022-01-13 18:00:24 Test Item Value Reference Range Interpretation Comments ABO & RH (test code O Negative Performe d at [place] = 20) Laboratory [facility] [address] [place] [address] 4Toll Free: [phone] 266CLIA No. [id number] [facility] CenterType and Screen - ONCE [id number] 17:09:42 Test Item Value Reference Range Interpretation Comments ABO & RH (test code O Negative Performe d at [facility] = 20) Laboratory [facility] [address] [place] [address] 4Toll Free: [phone] 266CLIA No. [id number] IAT (test code = Negative Performed a t [place] 1185) Laboratory [facility] [address] [place] [address] 4Toll Free: [phone] 266CLIA No. [id number] [facility] CenterType [facility] Screen - ONCE [id number] 17:09:42 Test Item Value Reference Range Interpretation Comments ABO & RH (test code O Negative Performe d at [facility] = 20) Laboratory [facility] [address] [place], [place] [address] 4Toll Free: [phone] 266CLIA No. [id number] IAT (test code = Negative Performed a t [facility] 1185) Laboratory [facility] [address] [place], [place] [address] 4Toll Free: [phone] 266CLIA No. [id number] [facility] CenterCBC WITH [id number] 16:51:42 Test Item Value Reference Range Interpretation Comments WBC (test code = See_Comment [Automated 3890-2) message] The sy stem which generated this result transmitted reference range : 4.20 - 10.70 10*3/?L. The reference range was not used to interpret this result as normal/abnormal . RBC (test code = See_Comment [Automated 299-8) message] The sy stem which generated this [...] RDW-SD (test code = 42.8 fL 38.5-51.6 59773-3) RDW-CV (test code = 12.7 % 12.1-15.4 788-0) PLT (test code = See_Comment [Automated 777-3) message] The sy stem which generated this result transmitted reference range : 150 - 328 10*3/ ?L. The reference r ruben was not used to interpret this result as normal/abnormal . MPV (test code = 10.1 fL 9.8-13.0 69524-6) NRBC/100 WBC (test See_Comment [Automat ed code = 5619700324) message] The system which generated this result transmitted reference range : 0.0 - 10.0 /100 WBCs. The refer ence range was not u sed to interpret th is result as normal/abnormal . NRBC x10^3 (test code See_Comment [Auto mated = 7655198037) message] The s ystem which generated this result transmitted reference range : 10*3/?L. The reference range was not used to interpret this result as normal/abnormal . GRAN MAT (NEUT) % 70.2 % (test code = 770-8) IMM GRAN % (test code 0.70 % = 6344780373) LYMPH % (test code = 13.8 % 736-9) MONO % (test code = 9.0 % 5905-5) EOS % (test code = 5.3 % 713-8) BASO % (test code = 1.0 % 706-2) GRAN MAT x10^3(ANC) 4.23 10*3/uL 1.99-6.95 (test code = 9365810180) IMM GRAN x10^3 (test 0.04 10*3/uL 0.00-0.06 code = 9578675894) LYMPH x10^3 (test code 0.83 10*3/uL 1.09-3.23 L = 731-0) MONO x10^3 (test code 0.54 10*3/uL 0.36-1.02 = 742-7) EOS x10^3 (test code = 0.32 10*3/uL 0.06-0.53 711-2) BASO x10^3 (test code 0.06 10*3/uL 0.01-0.09 = 704-7) Lab Interpretation Abnormal (test code = 12280-0) [facility] WITH [id number] 16:51:42 Test Item Value Reference Range Interpretation Comments WBC (test code = See_Comment [Automated 6690-2) message] The sy stem which generated this result transmitted reference range : 4.20 - 10.70 10*3/?L. The reference range was not used to interpret this result as normal/abnormal . RBC (test code = See_Comment [Automated 789-8) message] The sy stem which generated this [...] RDW-SD (test code = 42.8 fL 38.5-51.6 21130-9) RDW-CV (test code = 12.7 % 12.1-15.4 788-0) PLT (test code = See_Comment [Automated 777-3) message] The sy stem which generated this result transmitted reference range : 150 - 328 10*3/ ?L. The reference r ruben was not used to interpret this result as normal/abnormal . MPV (test code = 10.1 fL 9.8-13.0 63012-4) NRBC/100 WBC (test See_Comment [Automat ed code = 1278230197) message] The system which generated this result transmitted reference range : 0.0 - 10.0 /100 WBCs. The refer ence range was not u sed to interpret th is result as normal/abnormal . NRBC x10^3 (test code See_Comment [Auto mated = 6429007265) message] The s ystem which generated this result transmitted reference range : 10*3/?L. The reference range was not used to interpret this result as normal/abnormal . GRAN MAT (NEUT) % 70.2 % (test code = 770-8) IMM GRAN % (test code 0.70 % = 3508348809) LYMPH % (test code = 13.8 % 736-9) MONO % (test code = 9.0 % 5905-5) EOS % (test code = 5.3 % 713-8) BASO % (test code = 1.0 % 706-2) GRAN MAT x10^3(ANC) 4.23 10*3/uL 1.99-6.95 (test code = 9541965684) IMM GRAN x10^3 (test 0.04 10*3/uL 0.00-0.06 code = 3970339432) LYMPH x10^3 (test code 0.83 10*3/uL 1.09-3.23 L = 731-0) MONO x10^3 (test code 0.54 10*3/uL 0.36-1.02 = 742-7) EOS x10^3 (test code = 0.32 10*3/uL 0.06-0.53 711-2) BASO x10^3 (test code 0.06 10*3/uL 0.01-0.09 = 704-7) Lab Interpretation Abnormal (test code = 98687-4) [facility] CenterProthrombin Time / [id number] 16:42:58 Test Item Value Reference Range Interpretation Comments PROTIME PATIENT (test See_Comment [Auto mated message] code = 5964-2) The system [employer] generated this result transmitted ref erence range: 10.1 - 1 2.6 Seconds. The re ference range was not u sed to interpret this result as normal/abnor mal. INR (test code = 6301-6) Nor mal INR <1.1; Warfarin Therap eutic range 2.0 to 3. 0 or 2.5 to 3.5, dep ending upon the indica tions. Lab Interpretation (test Normal code = 98642-6) [facility] CenterProth[facility]bin Time / [id number] 16:42:58 Test Item Value Reference Range Interpretation Comments PROTIME PATIENT (test See_Comment [Auto mated message] code = 5964-2) The system [employer] generated this result transmitted ref erence range: 10.1 - 1 2.6 Seconds. The re ference range was not u sed to interpret this result as normal/abnor mal. INR (test code = 6301-6) Nor mal INR <1.1; Warfarin Therap eutic range 2.0 to 3. 0 or 2.5 to 3.5, dep ending upon the indica tions. Lab Interpretation (test Normal code = 04243-7) [facility] [place] METABOLIC PANEL (NA, K, CL, CO2, GLUCOSE, BUN, CREATININE, CA)2022-01-13 16:34:59 Test Item Value Reference Range Interpretation Comments NA (test code = 139 mmol/L 135-145 3795470155) K (test code = 4.2 mmol/L 3.5-5.0 6177574162) CL (test code = 105 mmol/L 98-108 8360350381) CO2 TOTAL (test code = 22 mmol/L 23-31 L 0641527940) AGAP (test code = 2-16 4136856199) BUN (test code = 13 mg/dL 7-23 5984985343) GLUCOSE (test code = 97 mg/dL 70-110 1738448411) CREATININE (test code = 1.05 mg/dL 0.60-1.25 2281428425) CALCIUM (test code = 9.0 mg/dL 8.6-10.6 8102534186) eGFR (test code = mL/min/1.73m2 9522787532) YAMIL (test code = YAMIL) Association of [...] tests). Lab Interpretation Abnormal (test code = 11996-7) [facility] [place] METABOLIC PANEL (NA, K, CL, CO2, GLUCOSE, BUN, CREATININE, CA)2022-01-13 16:34:59 Test Item Value Reference Range Interpretation Comments NA (test code = 139 mmol/L 135-145 0617644743) K (test code = 4.2 mmol/L 3.5-5.0 8082545494) CL (test code = 105 mmol/L 98-108 1507848003) CO2 TOTAL (test code = 22 mmol/L 23-31 L 8415649427) AGAP (test code = 2-16 1994447471) BUN (test code = 13 mg/dL 7-23 3634542877) GLUCOSE (test code = 97 mg/dL 70-110 0736972412) CREATININE (test code = 1.05 mg/dL 0.60-1.25 5713803639) CALCIUM (test code = 9.0 mg/dL 8.6-10.6 0569651418) eGFR (test code = mL/min/1.73m2 0898504820) YAMIL (test code = YAMIL) Association of [...] tests). Lab Interpretation Abnormal (test code = 19199-8) [facility] [place] METABOLIC PANEL (NA, K, CL, CO2, GLUCOSE, BUN, CREATININE, CA)2021-12-29 14:43:10 Test Item Value Reference Range Interpretation Comments NA (test code = 138 mmol/L 135-145 4962408134) K (test code = 4.1 mmol/L 3.5-5.0 9517274247) CL (test code = 105 mmol/L 98-108 3374674081) CO2 TOTAL (test code 25 mmol/L 23-31 = 6118031420) AGAP (test code = 2-16 9426273595) BUN (test code = 12 mg/dL 7-23 7398511385) GLUCOSE (test code = 91 mg/dL 70-110 8034529006) CREATININE (test code 1.16 mg/dL 0.60-1.25 = 8656700394) CALCIUM (test code = 9.3 mg/dL 8.6-10.6 1474750558) eGFR (test code = mL/min/1.73m2 4643806754) YAMIL (test code = YAMIL) Association of [...] or urine or abnormalities in imaging tests). [facility] [place] METABOLIC PANEL (NA, K, CL, CO2, GLUCOSE, BUN, CREATININE, CA)2021-12-29 14:43:10 Test Item Value Reference Range Interpretation Comments NA (test code = 138 mmol/L 135-145 7771108155) K (test code = 4.1 mmol/L 3.5-5.0 6123478742) CL (test code = 105 mmol/L 98-108 9056672426) CO2 TOTAL (test code 25 mmol/L 23-31 = 6692161614) AGAP (test code = 2-16 6116666056) BUN (test code = 12 mg/dL 7-23 9869893365) GLUCOSE (test code = 91 mg/dL 70-110 9425482680) CREATININE (test code 1.16 mg/dL 0.60-1.25 = 0725594620) CALCIUM (test code = 9.3 mg/dL 8.6-10.6 6537281155) eGFR (test code = mL/min/1.73m2 5041609377) YAMIL (test code = YAMIL) Association of [...] or urine or abnormalities in imaging tests). [facility] Center[facility] Time / [id number] 14:31:29 Test Item Value Reference Range Interpretation Comments PROTIME PATIENT (test See_Comment [Auto mated message] code = 5964-2) The system [employer] generated this result transmitted ref erence range: 10.1 - 1 2.6 Seconds. The re ference range was not u sed to interpret this result as normal/abnor mal. INR (test code = 6301-6) Nor mal INR <1.1; Warfarin Therap eutic range 2.0 to 3. 0 or 2.5 to 3.5, dep ending upon the indica tions. Lab Interpretation (test Normal code = 11899-0) [facility] Center[facility] Time / [id number] 14:31:29 Test Item Value Reference Range Interpretation Comments PROTIME PATIENT (test See_Comment [Auto mated message] code = 5964-2) The system [employer] generated this result transmitted ref erence range: 10.1 - 1 2.6 Seconds. The re ference range was not u sed to interpret this result as normal/abnor mal. INR (test code = 6301-6) Nor mal INR <1.1; Warfarin Therap eutic range 2.0 to 3. 0 or 2.5 to 3.5, dep ending upon the indica tions. Lab Interpretation (test Normal code = 01349-7) [facility] WITHOUT [id number] 14:24:49 Test Item Value Reference Range Interpretation Comments WBC (test code = See_Comment [Automated message] The 6690-2) system which nerated this result tra nsmitted reference range : 4.20 - 10.70 10*3/?L. The reference range was not used to interpr et this result as normal/abnormal . RBC (test code = See_Comment [Automated message] The 789-8) system which nerated this result tra nsmitted reference range [...] See_Comment [Automated message] The 777-3) system which nerated this result tra nsmitted reference range : 150 - 328 10*3/?L. Th e reference range was not used to interpr et this result as normal/abnormal . MPV (test code = 10.4 fL 9.8-13.0 88561-6) RDW-CV (test code = 12.9 % 12.1-15.4 788-0) RDW-SD (test code = 43.0 fL 38.5-51.6 86419-8) NRBC x10^3 (test See_Comment [Automated message] The code = 1403724904) system [facility] generated this result tra nsmitted reference range : 10*3/?L. The reference r ruben was not used to int erpret this result as normal/abnormal . NRBC/100 WBC (test See_Comment [Automat ed message] The code = 8490636143) system [facility] generated this result tra nsmitted reference range : 0.0 - 10.0 /100 WBCs. The reference range was not used to interpr et this result as normal/abnormal . IPF % (test code = 0058400829) [facility] WITHOUT [id number] 14:24:49 Test Item Value Reference Range Interpretation [...] MPV (test code = 10.4 fL 9.8-13.0 54856-6) RDW-CV (test code = 12.9 % 12.1-15.4 788-0) RDW-SD (test code = 43.0 fL 38.5-51.6 58634-3) NRBC x10^3 (test See_Comment [Automated message] The code = 0268845903) system [facility] generated this result tra nsmitted reference range : 10*3/?L. The reference r ruben was not used to int erpret this result as normal/abnormal . NRBC/100 WBC (test See_Comment [Automat ed message] The code = 8604891864) system [facility] generated this result tra nsmitted reference range : 0.0 - 10.0 /100 WBCs. The reference range was not used to interpr et this result as normal/abnormal . IPF % (test code = 4367478884) [facility] (AUT[facility]ATED)2021-11-01 21:23:49 Test Item Value Reference Range Interpretation Comments POCT GLU (test code = 5826713297) 93 mg/dL 70-110 Lab Interpretation (test code = Normal 83245-6) [facility] Notes Date/Time Note Provider Source 2022-06-10 14:27:00-00:00 [facility] ([facility]) Hospitalist Discharge Summary REPORT#:[id number] REPORT STATUS: Signed DATE:06/10/22 TIME: 1427 PATIENT: KAYLA HO UNIT #: [id number] ROOM/BED: [address] : 47 AGE: 76 SEX: M ATTEND: Diogo Reynolds MD ADM AUTHOR: Evon Dorado * ALL edits or amendments must be made on the el [employer]/computer document * General Information Discharge date: 05/26/22 [...] hypertension with coronary artery disease admitted from [facility] with reports of shortness of breath and [...] Zyprexa 2.5 mg PO Q6H. appreciate ps [facility] recs -Fall precautions #PUI for COVID-19 -Informed [...] Disposition: No longer means IP psych placement. [facility]iary placement obtained. Consultants: psychiatry Med Rec Med [...] MORNING; #90 - SI G Obtained From [place] Start taking the following new medications: IPRATROPIUM/ALBUTEROL (DUONEB 0.5 MG-3/3 ML) 0.5 MG-3 MG (2.5 MG BASE)/3 ML NEB 3 MILLILITERS NEB RT - EVERY 6 HOURS NEEDED. as needed for SHORTNESS OF BREATH/CONGESTION Qty = 30 No Refills traZODone (DESYREL) 50 MG TAB 25 MILLIGRAM ORAL DAILY. Qty = 30 No Refills QUEtiapine (SEROquel) 25 MG TAB 25 MILLIGRAM ORAL EVERY 6 HOURS. as needed for Agitation/Anxiety/Psychosis Qty = 60 No Refills Objective VS/I O Last Documented: Result Date Time Pulse Ox 96 06/10 1050 B/P 135/75 04/14 1050 B/P Mean 95.0 06/10 1050 Temp [...] no CVA tendernes s, no muscle spasm Neuro/CITY MANAGER: disoriented, alert, face symmetrical, not answering questions Skin: dry, intact, normal color, normal temperat ure Psychiatry: unable to evaluate Results Findings/Data: Laboratory Tests: 06/10 105 Serology SARS-CoV-2 Ag (Rapid) (NEGATIVE) NEGATIVE Discharge [...] 0 06/10/22 at 1429 at 1854 RPT #:[id number] END OF REPORT 2022-06-09 09:58:00-00:00 [facility] ([facility]) Hospitalist Progress Note REPORT#:[id number] REPORT STATUS: Signed DATE:06/09/22 TIME: 09 PATIENT: KAYLA HO UNIT #: [id number] ROOM/BED: [address] : 47 AGE: 76 SEX: M ATTEND: Diogo Reynolds MD ADM AUTHOR: Evon Dorado * ALL edits or amendments must be made on the [employer]/computer document * Subjective Chief complaint: Confusion HPI: Mr. Ho is a 76-year-old man with history of de mentia, hypothyroidism, hyperlipidemia, benign prost atic hypertrophy, hypertension with coronary artery disease admitted from [facility] with reports of shortness of breath and cough. Review of Systems All systems rev neg: except as noted Objective General VS/I O: Vital Signs: Date Time Temp Pulse Resp B/P B/P Pulse O2 O2 F low FiO2 Mean Ox Delivery Rate 06/09 0937 97 Room air 21 06/09 0736 97.7 65 18 135/75 95.3 97 Room air 06/09 0509 97.7 66 22 152/64 93.6 92 Room air 06/09 0326 96 Room air 21 06/08 2320 98.1 51 20 154/75 101.3 [...] SUBQ Dextrose/Sodium Chloride (DEXTROSE 5%-NS) 1,000 ML .[id number] IV Trazodone HCl (DESYREL) 50 MG BEDTIME [...] no CVA tendernes s, no muscle spasm Neuro/CITY MANAGER: disoriented, alert, face symmetrical, not answering questions [...] Zyprexa 2.5 mg PO Q6H. appreciate ps [facility] recs -Fall precautions #PUI for COVID-19 -Informed [...] 0 06/09/22 at 1001 at 1113 RPT #:[id number] END OF REPORT 2022-06-08 13:52:00-00:00 [facility] ([facility]) Hospitalist Progress Note REPORT#:[id number] REPORT STATUS: Signed DATE:06/08/22 TIME: 1352 PATIENT: KAYLA HO UNIT #: [id number] ROOM/BED: [address] : 47 AGE: 76 SEX: M ATTEND: Diogo Reynolds MD ADM AUTHOR: Evon Dorado * ALL edits or amendments must be made on the [employer]/computer document * Subjective Chief complaint: confused somnolent leyva HPI: Mr. Ho is a 76-year-old man with history of de mentia, hypothyroidism, hyperlipidemia, benign prost atic hypertrophy, hypertension with coronary artery disease admitted from [facility] with reports of shortness of breath and [...] 98.1 71 17 120/76 90.3 94 06/07 2021 95 Room air 06/07 1930 97.9 59 18 137/62 87.1 96 06/07 1546 98.1 66 17 125/71 88.9 96 24 hour I O ending at 0700: 06/08 0700 06/07 1900 Intake Total 400 Output Total 1350 [...] SUBQ Dextrose/Sodium Chloride (DEXTROSE 5%-NS) 1,000 ML .[id number] IV Trazodone HCl (DESYREL) 50 MG BEDTIME [...] no CVA tendernes s, no muscle spasm Neuro/CITY MANAGER: disoriented, alert, face symmetrical, not answering questions [...] Zyprexa 2.5 mg PO Q6H. appreciate ps [facility] recs -Fall precautions #PUI for COVID-19 -Informed [...] 0 06/08/22 at 1355 at 1113 RPT #:[id number] END OF REPORT 2022-06-08 09:15:00-00:00 [facility] ([facility]) Urology Progress Note REPORT#:[id number] REPORT STATUS: Signed DATE:06/08/22 TIME: 914 PATIENT: KAYLA HO UNIT #: [id number] ROOM/BED: [address] : 47 AGE: 76 SEX: M ATTEND: Diogo Reynolds MD ADM AUTHOR: Fazal Mcguire MD * ALL edits or amendments must be made on the el [employer]/computer document * Subjective Comments: He is still somewhat out of it this morn ing. I will hold off on voiding trial. at 0915 RPT #:[id number] END OF REPORT 2022-06-07 15:58:00-00:00 [facility] ([facility]) Hospitalist Progress Note REPORT#:[id number] REPORT STATUS: Signed DATE:06/07/22 TIME: 1558 PATIENT: KAYLA HO UNIT #: [id number] ROOM/BED: [address] : 47 AGE: 76 SEX: M ATTEND: Diogo Reynolds MD ADM AUTHOR: Evon Dorado * ALL edits or amendments must be made on the [employer]/computer document * Subjective Chief complaint: confused somnolent leyva HPI: Mr. Ho is a 76-year-old man with history of de mentia, hypothyroidism, hyperlipidemia, benign prost atic hypertrophy, hypertension with coronary artery disease admitted from [facility] with reports of shortness of breath and cough. Review of Systems Unable to obtain due to: r/t impaired cognition Objective General VS/I O: Vital Signs: Date Time Temp Pulse Resp B/P B/P Pulse O2 O2 Flow FiO2 Mean Ox Delivery Rate 06/07 1546 [...] (r) Dextrose/Sodium Chloride (DEXTROSE 5%-NS) 1,000 ML .[id number] IV Trazodone HCl (DESYREL) 50 MG BEDTIME [...] no CVA tendernes s, no muscle spasm Neuro/CITY MANAGER: disoriented, alert, face symmetrical, not answering questions Skin: dry, intact, normal color, normal temperat ure Psychiatry: unable to evaluate Results Findings/Data: Laboratory Tests 06/08 319 Chemistry Sodium (136 - 145 mmol/L) 139 [...] - 10.1 mg/dL) 8.1 L Laboratory Tests 06/08 319 Hematology WBC (4.5 - 12.5 K/mm3) 7.6 [...] (Auto) (25.0 - 55.0 %) 14.1 L [place] % (Auto) (0.0 - 10.0 %) 6.2 Eos % (Auto) (0.0 - 5.0 %) 4.5 Baso % (Auto) (0.0 - 1.0 %) 0.7 Neut # (Auto) (1.8 - 7.7 K/mm3) 5.60 Lymph # (Auto) (1.0 - 5.0 K/mm3) 1.07 [place] # (Auto) (0 - 0.8 K/mm3) 0.47 [...] #Metabolic acidosis -Crea 1.1 on 05/30, now 4 Crea 5.9, BUN 75 -Leyva catheter, strict [...] Zyprexa 2.5 mg PO Q6H. appreciate ps [facility] recs -Fall precautions #PUI for COVID-19 -Informed [...] on 0 06/07/22 at 1601 at 1657 [facility] #:[id number] END OF REPORT 2022-06-06 14:12:00-00:00 [facility] ([facility] Nephrology Progress Note REPORT#:[id number] REPORT STATUS: Signed DATE:06/06/22 TIME: 1412 PATIENT: KAYLA HO UNIT #: [id number] ROOM/BED: [address] : 47 AGE: 76 SEX: M ATTEND: Diogo Reynolds MD ADM AUTHOR: Lena Canela MD * ALL edits or amendments must be made on the [employer] [employer] document * Subjective Comments: events noted Objective [...] 96 06/05 2116 60 163/84 110.0 06/05 2021 98.2 60 [...] (DA) Dextrose/Sodium Chloride (DEXTROSE 5%-NS) 1,000 ML .[id number] IV Trazodone HCl (DESYREL) 50 MG BEDTIME [...] MD on 0 06/06/22 at 1415 RPT #:[id number] END OF REPORT 2022-06-06 10:59:00-00:00 [facility] ([facility]) Hospitalist Progress Note REPORT#:[id number] REPORT STATUS: Signed DATE:06/06/22 TIME: 1059 PATIENT: KAYLA HO UNIT #: [id number] [address] AGE: 76 SEX: M ATTEND: Diogo Reynolds MD ADM AUTHOR: Evon Dorado * ALL edits or amendments must be made on the [employer]/computer document * Subjective Chief complaint: confused somnolent leyva HPI: Mr. Ho is a 76-year-old man with history of de mentia, hypothyroidism, hyperlipidemia, benign prost atic hypertrophy, hypertension with coronary artery disease admitted from [facility] with reports of shortness of breath and cough. Review of Systems Unable to obtain due to: Related to impaired cognition Objective General VS/I O: Vital Signs: Date Time Temp Pulse Resp B/P B/P Pulse O2 O2 F low FiO2 Mean Ox Delivery Rate 06/06 0625 95 Room air 06/06 708 98.4 64 18 160/84 109.4 94 06/06 0409 98.4 63 18 154/88 109.6 96 06/06 0212 98 Room air 21 06/06 0023 58 97 06/06 0023 98.1 50 18 152/82 105.2 96 06/05 2116 60 163/84 110.0 06/05 2021 98.2 60 [...] (DA) Dextrose/Sodium Chloride (DEXTROSE 5%-NS) 1,000 ML .[id number] IV Trazodone HCl (DESYREL) 50 MG BEDTIME [...] no CVA tendernes s, no muscle spasm Neuro/CITY MANAGER: disoriented, alert, face symmetrical, not answering questions [...] Zyprexa 2.5 mg PO Q6H. appreciate ps [facility] recs -Fall precautions #PUI for COVID-19 -Informed by staff that patient's spouse is pres ent COVID-positive. -PCR: Negative -Decadron 6 mg IVP QD-Dc'd. Guaifenesin 600 mg p .o. every 12 hours prn. Azithromycin/Rocephin- completed -Isolation precautions- DC'd #Abdominal distention, mild secondary to gas -Simethicone 80 mg PO QD -Monitor -05/31, KUB: Negative Full code by default NOK: Spouse, Giovanni Pedrob, PPX: Lovenox- hold for now due to hematuria Disposition: UA clear. Per urology attempted voi ding trials. Pending medical/ psych clearance prior to returning to [facility]. Quality: Gen Med Crit Care VTE Prophylaxis [...] Dorado on 0 06/06/22 at 1106 at 1711 RPT #:[id number] END OF REPORT 2022-06-05 21:43:00-00:00 [facility] ([facility]) Urology Consult Note REPORT#:[id number] REPORT STATUS: Signed DATE:06/05/22 TIME: 2142 PATIENT: KAYLA HO UNIT #: [id number] ROOM/BED: [address] : 47 AGE: 76 SEX: M ATTEND: Diogo Reynolds MD ADM AUTHOR: Fazal Mcguire MD * ALL edits or amendments must be made on the [employer]/computer document * History of Present Illness HPI [...] Plan Diagnosis, Assessment Plan Consultants: psychiatry at 2032 RPT #:[id number] END OF REPORT 2022-06-05 10:29:00-00:00 [facility] ([facility] Nephrology Progress Note REPORT#:[id number] REPORT STATUS: Signed DATE:06/05/22 TIME: 1029 PATIENT: KAYLA HO UNIT #: [id number] ROOM/BED: [address] : 47 AGE: 76 SEX: M ATTEND: Diogo Reynolds MD ADM AUTHOR: Janel Rutherford MD * ALL edits or amendments must be made on the [employer] document * See Addendum Subjective Comments: Remains [...] 2259 98.6 55 22 152/75 100.8 97 06/04 [...] (DA) Dextrose/Sodium Chloride (DEXTROSE 5%-NS) 1,000 ML .[id number] IV Trazodone HCl (DESYREL) 50 MG BEDTIME [...] 10.1 mg/dL) 7.9 L Laboratory Tests 06/05 0226 Hematology WBC (4.5 - 12.5 K/mm3) 7.3 [...] (Auto) (25.0 - 55.0 %) 13.8 L [place] % (Auto) (0.0 - 10.0 %) 8.5 Eos % (Auto) (0.0 - 5.0 %) 5.3 H Baso % (Auto) (0.0 - 1.0 %) 0.3 Neut # (Auto) (1.8 - 7.7 K/mm3) 5.23 Lymph # (Auto) (1.0 - 5.0 K/mm3) 1.01 [place] # (Auto) (0 - 0.8 K/mm3) 0.62 [...] Janel Rutherford MD on at 1102 RPT #:[id number] END OF REPORT 2022-06-05 07:43:00-00:00 [facility] ([facility]) Hospitalist Progress Note REPORT#:[id number] REPORT STATUS: Signed DATE:06/05/22 TIME: 742 PATIENT: KAYLA HO UNIT #: [id number] ROOM/BED: [address] : 47 AGE: 76 SEX: M ATTEND: Diogo Reynolds MD ADM AUTHOR: Adonis Womack WRITING CENTER DIRECTOR * ALL edits or amendments must be made on the [employer]/computer document * Subjective Chief complaint: confused somnolent sitter at bedside leyva HPI: Mr. Ho is a 76-year-old man with history of de mentia, hypothyroidism, hyperlipidemia, benign prost atic hypertrophy, hypertension with coronary artery disease admitted from [facility] with reports of shortness of breath and cough. Review of Systems All systems rev neg: except as noted Unable to obtain due to: confused Objective General VS/I O: Vital Signs: Date Time Temp Pulse Resp B/P B/P Pulse O2 O2 F low FiO2 Mean Ox Delivery Rate 06/05 1627 97.9 70 17 143/66 92.0 94 0409 1534 97.9 79 16 145/85 104.7 94 [...] no CVA tendernes s, no muscle spasm Neuro/CITY MANAGER: disoriented, alert, face symmetrical, not answering questions [...] 10.1 mg/dL) 7.9 L Laboratory Tests 06/05 0226 Hematology WBC (4.5 - 12.5 K/mm3) 7.3 [...] (Auto) (25.0 - 55.0 %) 13.8 L [place] % (Auto) (0.0 - 10.0 %) 8.5 Eos % (Auto) (0.0 - 5.0 %) 5.3 H Baso % (Auto) (0.0 - 1.0 %) 0.3 Neut # (Auto) (1.8 - 7.7 K/mm3) 5.23 Lymph # (Auto) (1.0 - 5.0 K/mm3) 1.01 [place] # (Auto) (0 - 0.8 K/mm3) 0.62 [...] Zyprexa 2.5 mg PO Q6H. appreciate ps [facility] recs -Fall precautions #PUI for COVID-19 -Informed [...] cod e) Electronically Signed by Adonis Womack WRITING CENTER DIRECTOR on 11/19 at 1913 at 1108 RPT #:[id number] END OF REPORT 2022-06-04 09:20:00-00:00 [facility] ([facility] Nephrology Progress Note REPORT#:[id number] REPORT STATUS: Signed DATE:06/04/22 TIME: 919 PATIENT: KAYLA HO UNIT #: [id number] ROOM/BED: [address] : 47 AGE: 76 SEX: M ATTEND: Diogo Reynolds MD ADM AUTHOR: Janel Rutherford MD * ALL edits or amendments must be made on the [employer]/computer document * Subjective Comments: Confused, agitated. Sitter at bedside. Currently resting. Positive hematuria Objective General VS/I O: Vital Signs: Date Time Temp Pulse Resp B/P B/P Pulse O2 O2 F low FiO2 Mean Ox Delivery Rate 06/04 812 93 Room air 0 21 06/04 709 97.5 63 17 129/72 90.9 92 06/04 [...] SUBQ Dextrose/Sodium Chloride (DEXTROSE 5%-NS) 1,000 ML .[id number] IV Trazodone HCl (DESYREL) 50 MG BEDTIME [...] pH (5.0 - 8.0) 5.5 Ur Specific [place] (1.001 - 1.035) 1.017 Urine Protein (NEGATIVE [...] Radiology data: Recent Impressions: ULTRASOUND - US 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 Otherwise the left kidney is sonographically unremarkable. Location: [facility] Impression By: [email or web address] - Sai Redman MD [...] Janel Rutherford MD on at 1005 RPT #:[id number] END OF REPORT 2022-06-04 09:02:00-00:00 [facility] ([facility]) Hospitalist Progress Note REPORT#:[id number] REPORT STATUS: Signed DATE:06/04/22 TIME: 09 PATIENT: KAYLA HO UNIT #: [id number] ROOM/BED: [address] : 47 AGE: 76 SEX: M ATTEND: Diogo Reynolds MD ADM AUTHOR: Adonis Womack NP * ALL edits or amendments must be made on the [employer]/computer document * Subjective Chief complaint: confused sitter at bedside not eating much urine output noted Crea 1.3 HPI: Mr. Ho is a 76-year-old man with history of de mentia, hypothyroidism, hyperlipidemia, benign prost atic hypertrophy, hypertension with coronary artery disease admitted from [facility] with reports of shortness of breath and [...] no CVA tendernes s, no muscle spasm Neuro/CITY MANAGER: disoriented, alert, face symmetrical, not answering questions [...] data: Recent Impressions: ULTRASOUND - US [facility] 06/03 1704 Report Impression - Status: SIGNED Entered: 06/03/2022 3663 IMPRESSION: The right kidney is surgically absent. There is compensatory hypertrophy of the left ki dney. Otherwise the left kidney is sonographically unremarkable. Location: [facility] Impression By: [email or web address] - Sai Redman MD [...] Zyprexa 2.5 mg PO Q6H. appreciate ps h recs -Fall precautions #PUI for COVID-19 -Informed [...] cod e) Electronically Signed by Adonis Womack WRITING CENTER DIRECTOR on 10/19 at 1245 at 1330 RPT #:[id number] END OF REPORT 2022-06-03 12:16:00-00:00 [facility] ([facility]) Clinical Note REPORT#:[id number] REPORT STATUS: Signed DATE:06/03/22 TIME: 1216 PATIENT: KAYLA HO UNIT #: [id number] ROOM/BED: [address] : 47 AGE: 76 SEX: M ATTEND: Diogo Reynolds MD ADM AUTHOR: Lena Canela MD * ALL edits or amendments must be made on the [employer]computer document * Clinical Note Note: Renal Consult dictated Thank You Electronically Signed by Lena Canela MD on 0 06/03/22 at 1217 RPT #:[id number] END OF REPORT 2022-06-03 12:16:00-00:00 [id number] [facility] PATIENT NAME: KAYLA HO ADMIT DATE: 05/25/22 ACCOUNT NO: [id number] ROOM NO: [id number] AGE: 76 REPORT TYPE: CONSULTATION REPORT SEX: [...] breath. [facility] I am being asked to see the [...] Date Transcribed: 06/03/2022 19:45:53 SUNNI/FRANCOIS Receipt ID: [id number] Authenticated by Lena Canela MD On 06/16 04:09:06 PM at 0409 PATIENT NAME: KAYLA HO 0 2022-06-03 09:49:00-00:00 [facility] ([facility]) Hospitalist Progress Note REPORT#:[id number] REPORT STATUS: Signed DATE:06/03/22 TIME: 948 PATIENT: KAYLA HO UNIT #: [id number] ROOM/BED: [address] : 47 AGE: 76 SEX: M ATTEND: Diogo Reynolds MD ADM AUTHOR: Adonis Womack WRITING CENTER DIRECTOR * ALL edits or amendments must be made on the [employer]/computer document * Subjective Chief complaint: confused sitter at bedside on RA poor PO intake HPI: Mr. Ho is a 76-year-old man with history of de mentia, hypothyroidism, hyperlipidemia, benign prost atic hypertrophy, hypertension with coronary artery disease admitted from [facility] with reports of shortness of breath and cough. Review of Systems Unable to obtain due to: ams Objective General VS/I O: Vital Signs: Date Time Temp Pulse Resp B/P B/P Pulse O2 O2 Flow FiO2 Mean Ox Delivery Rate 06/03 0802 97.3 82 16 155/81 106.0 06/03 0642 97.3 77 23 135/81 98.9 93 06/02 2335 97.5 138 18 153/83 106.5 94 Room air 06/025 96 Room air 21 06/02 1910 98.2 67 18 141/86 104.5 94 06/02 1703 97.9 79 18 142/76 98.3 92 06/02 1700 98.6 112 124/75 91.5 100 PATIENT [...] no CVA tendernes s, no muscle spasm Neuro/CITY MANAGER: disoriented, alert, face symmetrical, not answering questions Skin: dry, intact, normal color, normal temperat ure Psychiatry: unable to evaluate Results Findings/Data: Laboratory Tests 06/03 737 Chemistry Sodium (136 - 145 mmol/L) 139 [...] - 2.4 mg/dL) 2.1 Laboratory Tests 06/03 737 Hematology WBC (4.5 - 12.5 K/mm3) 12.4 [...] (Auto) (25.0 - 55.0 %) 6.3 L [place] % (Auto) (0.0 - 10.0 %) 6.9 Eos % (Auto) (0.0 - 5.0 %) 1.3 Baso % (Auto) (0.0 - 1.0 %) 0.2 Neut # (Auto) (1.8 - 7.7 K/mm3) 10.49 H Lymph # (Auto) (1.0 - 5.0 K/mm3) 0.78 L [place] # (Auto) (0 - 0.8 K/mm3) 0.86 [...] PO QD. Aricept 10 mg PO QD. Trazo done 25 mg PO QHS -As needed: Zyprexa 2.5 mg PO Q6H. appreciate ps [facility] recs -Fall precautions #PUI for COVID-19 -Informed [...] Womack NP on 09/18 at 1208 at 170 RPT #:[id number] END OF REPORT 2022-06-02 11:19:00-00:00 [facility] ([facility]) Hospitalist Progress Note REPORT#:[id number] REPORT STATUS: Signed DATE:06/02/22 TIME: 1119 PATIENT: KAYLA HO UNIT #: [id number] ROOM/BED: [address] : 47 AGE: 76 SEX: M ATTEND: Diogo Reynolds MD ADM AUTHOR: Adonis Womack NP * ALL edits or amendments must be made on the [employer]computer document * Subjective Chief complaint: confused somnolent sitter at bedside on RA HPI: Mr. Ho is a 76-year-old man with history of de mentia, hypothyroidism, hyperlipidemia, benign prost atic hypertrophy, hypertension with coronary artery disease admitted from [facility] with reports of shortness of breath and cough. Review of Systems All systems rev neg: except as noted Objective General VS/I O: Vital Signs: Date Time Temp Pulse Resp B/P B/P Pulse O2 O2 F low FiO2 Mean Ox Delivery Rate 06/02 1121 99.3 96 18 131/78 95.9 93 06/02 0914 98.4 96 18 131/84 99.4 93 / 0827 97 Room air 06/02 0429 97 Room air 21 06/02 0308 98.4 77 18 125/73 90.6 96 / 2259 99.5 66 18 133/81 98.3 96 / 2138 94 Room air 21 06/01 1911 98.8 64 18 138/86 103.1 94 / 1858 97.9 61 14 136/80 98.6 95 [...] no CVA tendernes s, no muscle spasm Neuro/CITY MANAGER: disoriented, alert, face symmetrical, not answering questions [...] Zyprexa 2.5 mg PO Q6H. appreciate ps [facility] recs -Fall precautions #PUI for COVID-19 -Informed [...] that the foregoing medication list in t medical record is true, accurate, and complete to the best of my knowled ge. Advanced Care Plan 65 or Older Discussed with: surrogate decis. maker (full cod e) Electronically Signed by Adonis Womack NP on 08/19 at 1228 at 1708 RPT #:[id number] END OF REPORT 2022-06-01 09:49:00-00:00 [facility] ([facility]) Hospitalist Progress Note REPORT#:[id number] REPORT STATUS: Signed DATE:06/01/22 TIME: 948 PATIENT: KAYLA HO UNIT #: [id number] ROOM/BED: [address] : 47 AGE: 76 SEX: M ATTEND: Diogo Reynolds MD ADM AUTHOR: Adonis Womack NP * ALL edits or amendments must be made on the [employer]computer document * Subjective Chief complaint: confused sitter at bedside on RA HPI: Mr. Ho is a 76-year-old man with history of de mentia, hypothyroidism, hyperlipidemia, benign prost atic hypertrophy, hypertension with coronary artery disease admitted from [facility] with reports of shortness of breath and [...] no CVA tendernes s, no muscle spasm Neuro/CITY MANAGER: disoriented, alert, face symmetrical, not answering questions [...] on 07/19 at 1246 at 0834 RPT #:[id number] END OF REPORT 2022-05-31 08:20:00-00:00 [facility] ([facility]) Hospitalist Progress Note REPORT#:[id number] REPORT STATUS: Signed DATE:05/31/22 TIME: 819 PATIENT: KAYLA HO UNIT #: [id number] ROOM/BED: [address] : 47 AGE: 76 SEX: M ATTEND: Diogo Reynolds MD ADM AUTHOR: Evon Dorado * ALL edits or amendments must be made on the [employer]/computer document * Subjective Chief complaint: Shortness of breath HPI: Mr. Ho is a 76-year-old man with history of de mentia, hypothyroidism, hyperlipidemia, benign prost atic hypertrophy, hypertension with coronary artery disease admitted from [facility] with reports of shortness of breath and cough. Review of Systems Unable to obtain due to: Due to cognitive impairment Objective General VS/I O: Vital Signs: Date Time Temp Pulse Resp B/P B/P Pulse O2 O2 F low FiO2 Mean Ox Delivery Rate 05/31 1138 98.4 69 19 115/75 88.4 94 Room air 05/31 1004 94 Room air 21 05/31 0802 98.1 78 19 159/85 109 [...] I O ending at 0700: 05/31 0700 04 1900 Intake Total 900 Output Total Balance [...] no CVA tendernes s, no muscle spasm Neuro/CITY MANAGER: alert, face symmetrical, not answerin g questions [...] mg PO Q6H. Ativan 1 mg I DRESSMAKER GARMENT FITTER Q4H -Fall precautions #PUI for COVID-19 -Informed [...] 0 05/31/22 at 1200 at 1720 RPT #:[id number] END OF REPORT 2022-05-30 08:16:00-00:00 [facility] ([facility] Hospitalist Progress Note REPORT#:[id number] REPORT STATUS: Signed DATE:05/30/22 TIME: 08 PATIENT: KAYLA HO UNIT #: [id number] ROOM/BED: [address] : 47 AGE: 76 SEX: M ATTEND: Diogo Reynolds MD ADM AUTHOR: Evon Dorado * ALL edits or amendments must be made on the [employer]/computer document * Subjective Chief complaint: Shortness of breath HPI: Mr. Ho is a 76-year-old man with history of de mentia, hypothyroidism, hyperlipidemia, benign prost atic hypertrophy, hypertension with coronary artery disease admitted from [facility] with reports of shortness of breath and cough. Review of Systems All systems rev neg: except as noted Objective General VS/I O: Vital Signs: Date Time Temp Pulse Resp B/P B/P Pulse O2 O2 F low FiO2 Mean Ox Delivery Rate 05/30 0828 95 Room air 21 05/30 0703 98.4 58 20 122/71 87.7 95 Room air 05/30 0313 98.4 61 18 126/85 98.5 99 / 2317 98.1 56 18 112/64 80.5 96 05/29 2200 96 Nasal 3 32 cannula 05/29 1905 97.5 61 18 134/72 92.3 95 05/29 1756 98.1 61 20 130/66 87.7 96 04/ 1641 97.5 61 16 115/63 79.9 97 [...] no CVA tendernes s, no muscle spasm Neuro/CITY MANAGER: alert, face symmetrical, not answerin g questions Skin: dry, intact, normal color, normal temperat ure Psychiatry: unable to evaluate Results Findings/Data: Laboratory Tests 05/31 539 Chemistry Sodium (136 - 145 mmol/L) 140 [...] (Auto) (25.0 - 55.0 %) 17.2 L [place] % (Auto) (0.0 - 10.0 %) 9.5 Eos % (Auto) (0.0 - 5.0 %) 1.1 Baso % (Auto) (0.0 - 1.0 %) 0.3 Neut # (Auto) (1.8 - 7.7 K/mm3) 5.63 Lymph # (Auto) (1.0 - 5.0 K/mm3) 1.36 [place] # (Auto) (0 - 0.8 K/mm3) 0.75 [...] 2.5 mg PO Q6H. Ativan 1 mg IVP Q4H -Fall precautions #PUI for COVID-19 -Informed [...] Likely DC tomorrow. CM consult return to [facility] or prior outpatient residence. Electronically Signed by Evon Dorado on 0 05/30/22 at 1012 at 1604 RPT #:[id number] END OF REPORT 2022-05-29 07:26:00-00:00 [facility] ([facility]) Hospitalist Progress Note REPORT#:[id number] REPORT STATUS: Signed DATE:05/29/22 TIME: 725 PATIENT: KAYLA HO UNIT #: [id number] ROOM/BED: [address]: 47 AGE: 76 SEX: M ATTEND: Diogo Reynolds MD ADM AUTHOR: Evon Dorado * ALL edits or amendments must be made on the [employer]/computer document * Subjective Chief complaint: Shortness of breath HPI: Mr. Ho is a 76-year-old man with history of de mentia, hypothyroidism, hyperlipidemia, benign prost atic hypertrophy, hypertension with coronary artery disease admitted from [facility] with reports of shortness of breath and [...] 75 16 168/88 114.5 97 Nasal cannula 05/28 2232 Nasal 2 cannula 05/28 2008 97.7 65 20 103/62 75.5 94 05/28 1601 98.1 66 21 128/75 92.5 95 24 hour I O ending at 0700: 05/29 0700 05/28 1900 Intake Total 120.00 Output Total Balance [...] no CVA tendernes s, no muscle spasm Neuro/CITY MANAGER: alert, face symmetrical, not answerin g questions [...] mg PO Q6H. Ativan 1 mg I DRESSMAKER GARMENT FITTER Q4H -Fall precautions #PUI for COVID-19 -Informed [...] 0 05/29/22 at 1243 at 1730 RPT #:[id number] END OF REPORT 2022-05-28 07:47:00-00:00 [facility] ([facility] Hospitalist Progress Note REPORT#:[id number] REPORT STATUS: Signed DATE:05/28/22 TIME: 0747 PATIENT: KAYLA HO UNIT #: [id number] ROOM/BED: [address] : 47 AGE: 76 SEX: M ATTEND: Diogo Reynolds MD ADM AUTHOR: Evon Dorado * ALL edits or amendments must be made on the [employer]/computer document * Subjective Chief complaint: Shortness of breath HPI: Mr. Ho is a 76-year-old man with history of de mentia, hypothyroidism, hyperlipidemia, benign prost atic hypertrophy, hypertension with coronary artery disease admitted from [facility] with reports of shortness of breath and cough. Review of Systems Unable to obtain due to: Due to impaired cognition Objective General VS/I O: Vital Signs: Date Time Temp Pulse Resp B/P B/P Pulse O2 O2 F low FiO2 Mean Ox Delivery Rate 05/28 0557 98 Nasal 2 28 cannula 05/28 0422 Nasal 2 cannula 05/28 0023 98.6 75 14 125/79 94 97 03/31 1701 82 05/27 1659 118/64 82 98 [...] Sodium Chloride (SODIUM CHLORIDE 0.9% PF) 10 M L Azithromycin (ZITHROMAX) 500 MG Q24H IV Sodium [...] no CVA tendernes s, no muscle spasm Neuro/CITY MANAGER: alert, face symmetrical, not answerin g questions [...] (8.5 - 10.1 mg/dL) 8.8 Laboratory Tests 05/28 0812 Hematology WBC (4.5 - 12.5 K/mm3) 7.1 [...] (Auto) (25.0 - 55.0 %) 8.9 L [place] % (Auto) (0.0 - 10.0 %) 8.5 Eos % (Auto) (0.0 - 5.0 %) 0.1 Baso % (Auto) (0.0 - 1.0 %) 0.3 Neut # (Auto) (1.8 - 7.7 K/mm3) 5.80 Lymph # (Auto) (1.0 - 5.0 K/mm3) 0.63 L [place] # (Auto) (0 - 0.8 K/mm3) 0.60 [...] inspiration. Markedly distended air-filled stomach. Impression By: [email or web address] - Renato Padilla M.D. [...] mg PO Q6H. Ativan 1 mg I DRESSMAKER GARMENT FITTER Q4H -Fall precautions Full code by default [...] on 0 05/28/22 at 1025 at 1536 [facility] #:[id number] END OF REPORT 2022-05-27 11:06:00-00:00 [facility] ([facility]) Hospitalist Progress Note REPORT#:[id number] REPORT STATUS: Signed DATE:05/27/22 TIME: 1106 PATIENT: KAYLA HO UNIT #: [id number] ROOM/BED: [place] [address] : 47 AGE: 76 SEX: M ATTEND: Diogo Reynolds MD ADM AUTHOR: Evon Dorado * ALL edits or amendments must be made on the [employer]/computer document * Subjective Chief complaint: Shortness of breath HPI: Mr. Ho is a 76-year-old man with history of de mentia, hypothyroidism, hyperlipidemia, benign prost atic hypertrophy, hypertension with coronary artery disease admitted from [facility] with reports of shortness of breath and [...] (DC) Albuterol Sulfate (ALBUTEROL SULFATE) 2.5 MG RT Q6H PRN PRN INH Benzonatate (BENZONATATE) 100 MG [...] no CVA tendernes s, no muscle spasm Neuro/CITY MANAGER: alert, face symmetrical, not answerin g questions [...] 0 05/27/22 at 1119 at 1621 RPT #:[id number] END OF REPORT 2022-05-26 13:19:00-00:00 [facility] ([facility]) Hospitalist Progress Note REPORT#:[id number] REPORT STATUS: Signed DATE:05/26/22 TIME: 1319 PATIENT: KAYLA HO UNIT #: [id number] ROOM/BED: [place] [address] : 47 AGE: 76 SEX: M ATTEND: Diogo Reynolds MD ADM AUTHOR: Evon Dorado * ALL edits or amendments must be made on the [employer]computer document * Subjective Chief complaint: Shortness of breath HPI: Mr. Ho is a 76-year-old man with history of de mentia, hypothyroidism, hyperlipidemia, benign prost atic hypertrophy, hypertension with coronary artery disease admitted from [facility] with reports of shortness of breath and [...] no CVA tendernes s, no muscle spasm Neuro/CITY MANAGER: alert, face symmetrical, not answerin g questions [...] evaluation required prior to acceptance back to [facility]. Psychiatry consulted. Electronically Signed by Evon Dorado on 0 05/26/22 at 1322 at 0327 RPT #:[id number] END OF REPORT 2022-05-25 10:24:00-00:00 [facility] ([facility] Hospitalist Progress Note REPORT#:[id number] REPORT STATUS: Signed DATE:05/25/22 TIME: 1023 PATIENT: KAYLA HO UNIT #: [id number] ROOM/BED: [place] [address] : 47 AGE: 76 SEX: M ATTEND: Diogo Reynolds MD ADM AUTHOR: Evon Dorado * ALL edits or amendments must be made on the [employer]/computer document * Subjective Chief complaint: Shortness of breath HPI: Mr. Ho is a 76-year-old man with history of de mentia, hypothyroidism, hyperlipidemia, benign prost atic hypertrophy, hypertension with coronary artery disease admitted from [facility] with reports of shortness of breath and [...] no CVA tendernes s, no muscle spasm Neuro/CITY MANAGER: alert, face symmetrical, not answerin g questions Skin: dry, intact, normal color Psychiatry: unable to evaluate Results Findings/Data: Laboratory Tests 05/25 010 Chemistry Sodium (136 - 145 mmol/L) 139 [...] (0.75 - 1.50) 1.3 Laboratory Tests 05/25 104 Hematology WBC (4.5 - 12.5 K/mm3) 8.5 [...] (Auto) (25.0 - 55.0 %) 4.9 L [place] % (Auto) (0.0 - 10.0 %) 5.6 Eos % (Auto) (0.0 - 5.0 %) 3.7 Baso % (Auto) (0.0 - 1.0 %) 0.5 Neut # (Auto) (1.8 - 7.7 K/mm3) 7.26 Lymph # (Auto) (1.0 - 5.0 K/mm3) 0.42 L [place] # (Auto) (0 - 0.8 K/mm3) 0.48 Eos # (Auto) (0.0 - 0.5 K/mm3) 0.32 Baso # (Auto) (0.0 - 0.2 K/mm3) 0.04 Nucleated RBC % (0 - 0 %) 0.0 Nucleated RBCs # (Man) (0.0 - 0.1 K/mm3) 0.00 Laboratory Tests 05/25 030 Other Body Source POC Nasal Influenza A (Negative) Negative POC Nasal Influenza B (Negative) Negative Laboratory Tests 05/25 304 Serology SARS-CoV-2 Ag (Rapid) (NEGATIVE) NEGATIVE Laboratory Tests 05/25 010 Urines Urine Color (YELLOW) YELLOW Urine Appearance (CLEAR) CLEAR Urine pH (5.0 - 8.0) 6.0 Ur Specific [place] (1.001 - 1.035) 1.022 Urine Protein (NEGATIVE [...] 0 05/25/22 at 1122 at 1859 RPT #:[id number] END OF REPORT 2022-05-25 04:31:00-00:00 [facility] ([facility]) Hospitalist History Physical REPORT#:[id number] REPORT STATUS: Signed DATE:05/25/22 TIME: 043 PATIENT: KAYLA HO UNIT #: [id number] ROOM/BED: [place] [id number] : 47 AGE: 76 SEX: M ATTEND: Yessenia Osborn MD ADM AUTHOR: Klaudia Osborn MD * ALL edits or amendments must be made on the [employer]/computer document * History of Present Illness HPI [...] 25 MCG PO 05/25/22 (SYNTHROID) DAILY 0600 4 Strength: 25 MCG TAB ATORVASTATIN (LIPITOR) 80 MG PO DAILY 05/16/22 Strength: 80 MG TAB 2041 CARVEDILOL (COREG) 12.5 MG PO BID 05/16/22 Strength: 12.5 MG TAB 2041 CLOPIDOGREL (PLAVIX) 75 MG PO DAILY 05/16/22 Strength: 75 MG TAB 2042 DONEPEZIL (ARICEPT) 10 MG PO DAILY 05/16/22 Strength: 10 MG TAB 2042 ESCITALOPRAM (LEXAPRO) 20 MG PO DAILY 05/16/22 Strength: 20 MG TAB 2042 FENOFIBRATE 145 MG PO DAILY 05/16/22 Strength: 145 MG TAB 2042 FINASTERIDE (PROSCAR) 5 MG PO DAILY 05/16/22 [...] Status Admin Azithromycin 500 MG X1ED STA 05/253 DC 04/28 9 (ZITHROMAX) IV 05/25 014 0123 Sodium Chloride 250 ML (SODIUM CHLORIDE 0.9%) Ceftriaxone Sodium 1,000 MG X1ED STA 05/253 DC 05/25 (ROCEPHIN) IV 05/25 44 0123 Sodium Chloride 10 ML (SODIUM CHLORIDE 0.9% PF) Autonomic Drugs Sig/Fletcher Start time Last Medication Dose Route Stop Time Status Admin Donepezil HCl 10 MG DAILY 05/25 899 AC (ARICEPT 10MG TAB) PO 06/24 858 Blood Formation,Coagulation Sig/Fletcher Start time Last Medication Dose Route Stop Time Status Admin Clopidogrel Bisulfate 75 MG DAILY 05/25 899 AC (PLAVIX 75MG TAB) PO 06/24 858 Cardiovascular Drugs Sig/Fletcher Start time Last Medication Dose Route Stop Time Status Admin Atorvastatin Calcium 80 MG DAILY 05/25 899 AC (LIPITOR 40MG TAB) PO 06/24 858 Carvedilol 12.5 MG BID 05/25 899 AC (COREG 12.5MG TAB) PO 06/24 858 Fenofibrate 145 MG DAILY 05/25 899 AC PO 06/24 858 Tamsulosin HCl 0.4 MG DAILY 05/25 899 UNV (FLOMAX 0.4MG PO 06/24 08 CAPSULE) Central Nervous System Agents Sig/Fletcher Start time Last Medication Dose Route Stop Time Status Admin Aspirin 81 MG DAILY 05/25 899 AC (ECOTRIN) PO 06/24 08 Escitalopram Oxalate 20 MG DAILY 05/25 899 UNV r (LEXAPRO 20MG TAB PO 06/24 0859 (NF)) Acetaminophen 1,000 MG X1ED STA 05/25 0319 DC 0 05/25 (TYLENOL EXTRA PO 05/25 0320 0335 STRENGTH) Electrolytic, Caloric, And Cori Sig/Fletcher Start time Last Medication Dose Route Stop Time Status Admin Sodium Chloride 2,000 ML X1ED STA 05/25 0042 DC 05/25 (SODIUM CHLORIDE IV 05/25 004 0124 0.9%) Gastrointestinal Drugs Sig/Fletcher Start time Last Medication Dose Route Stop Time Status Admin Omeprazole 20 MG DAILY 05/25 899 UNVr (PriLOSEC 20MG CAP PO 06/24 0859 (NF)) Hormones And Synthetic Substit Sig/Fletcher Start time Last Medication Dose Route Stop Time Status Admin Levothyroxine Sodium 25 MCG DAILY 0600 05/25 06 00 UNV (SYNTHROID) PO 06/24 0559 Miscellaneous Therapeutic Agen Sig/Fletcher Start time Last Medication Dose Route Stop Time Status Admin Finasteride 5 MG DAILY 05/25 899 UNV (PROSCAR 5MG TAB) PO 06/24 0859 Vitamins Sig/Fletcher Start time Last Medication Dose Route Stop Time Status Admin Multivitamins 1 UDTAB DAILY 05/25 0900 UNV Therapeutic PO 06/24 08 (THERAGRAN) Allergies: Coded Allergies: No Known Allergies [...] no CVA tendernes s, no muscle spasm Neuro/CITY MANAGER: alert, face symmetrical, not answerin g questions [...] (0.75 - 1.50) 1.3 Laboratory Tests 05/25 104 Hematology WBC (4.5 - 12.5 K/mm3) 8.5 [...] (Auto) (25.0 - 55.0 %) 4.9 L [place] % (Auto) (0.0 - 10.0 %) 5.6 Eos % (Auto) (0.0 - 5.0 %) 3.7 Baso % (Auto) (0.0 - 1.0 %) 0.5 Neut # (Auto) (1.8 - 7.7 K/mm3) 7.26 Lymph # (Auto) (1.0 - 5.0 K/mm3) 0.42 L [place] # (Auto) (0 - 0.8 K/mm3) 0.48 Eos # (Auto) (0.0 - 0.5 K/mm3) 0.32 Baso # (Auto) (0.0 - 0.2 K/mm3) 0.04 Nucleated RBC % (0 - 0 %) 0.0 Nucleated RBCs # (Man) (0.0 - 0.1 K/mm3) 0.00 Laboratory Tests 05/25 304 Other Body Source POC Nasal Influenza A (Negative) Negative POC Nasal Influenza B (Negative) Negative Laboratory Tests 05/25 304 Serology SARS-CoV-2 Ag (Rapid) (NEGATIVE) NEGATIVE Laboratory Tests 05/25 104 Urines Urine Color (YELLOW) YELLOW Urine Appearance (CLEAR) CLEAR Urine pH (5.0 - 8.0) 6.0 Ur Specific [place] (1.001 - 1.035) 1.022 Urine Protein (NEGATIVE [...] Impressions: RADIOLOGY - XR CHEST 1 V 05/259 Report Impression - Status: SIGNED Entered: 05/25/2022 011 IMPRESSION: Probable atelectatic changes versus less likely [...] Klaudia Osborn MD on at 0446 RPT #:[id number] END OF REPORT 2022-05-25 04:18:00-00:00 [facility] ([facility]) EMERGENCY PROVIDER REPORT REPORT#:[id number] REPORT STATUS: Signed DATE:05/25/22 TIME: 417 PATIENT: KAYLA HO UNIT #: [id number] ROOM/BED: [id number] AGE: 76 SEX: M PCP PHYS: No Primary or Family Ph ysician SERVICE AUTHOR: Terry Yao MD * ALL edits or amendments must be made on the [email or web address]/computer document * HPI-Dyspnea/Wheezing Free Text HPI Notes Free Text HPI Notes ptpresents to ED with report ed sob[facility] present for several days steadily worsening. General Initial Greet Date/Time 05/25/2241 Presentation Chief Complaint Cough, Shortness of breath [...] Result Date Time Pulse Ox 95 05/25 003 B/P 164/82 05/25 36 B/P Mean 109 05/25 36 O2 Delivery Room air 05/25 36 Temp 38.3 05/25 36 Pulse 92 05/25 36 Resp 17 05/25 36 Last Documented: Result Date Time Pulse Ox 95 05/25 332 B/P 155/70 05/25 332 B/P Mean 98 05/25 332 O2 Delivery Room air 05/25 332 Pulse 86 05/25 332 Resp 18 05/25 332 Temp 38.3 05/257 Review of Vital Signs Reviewed Basic Physical [...] (Auto) (25.0 - 55.0 %) 4.9 L [place] % (Auto) (0.0 - 10.0 %) 5.6 Eos % (Auto) (0.0 - 5.0 %) 3.7 Baso % (Auto) (0.0 - 1.0 %) 0.5 Neut # (Auto) (1.8 - 7.7 K/mm3) 7.26 Lymph # (Auto) (1.0 - 5.0 K/mm3) 0.42 L [place] # (Auto) (0 - 0.8 K/mm3) 0.48 [...] pH (5.0 - 8.0) 6.0 Ur Specific [place] (1.001 - 1.035) 1.022 Urine Protein (NEGATIVE [...] RADIOLOGY - XR CHEST 1 V 05/25 004 Report Impression - Status: SIGNED Entered: 05/25/2022 0111 IMPRESSION: Probable atelectatic changes versus less likely pneumonia medially at the left lung base and patchy interstitial infil trate and mild elevation left hemidiaphragm Lung volume is shallow limiting assessment Prominence of the aortic knob. Cannot entirely e xclude aneurysmal dilatation of the thoracic aorta. Impression By: Shane - Mamie la M.D. Lab Imaging Statement Laboratory radiographic [...] presentation required immediate evaluation by myself. The pat kaykay's current condition does pose an immediate threat to life/physiologic fun ction. Any testing ordered possibly including, but not limited to, [lab wor k] [imaging] [EKG] and was reviewed, interpreted and considered by myself f or ultimate patient disposition. If available patient make up editor al records were reviewed by myself and [...] STA 05/25 0042 DC 05/25 IV 05/25 004 0124 Patient Discharge Departure Vital Signs/Condition Vital Signs First Documented: Result Date Time Pulse Ox 95 05/25 003 B/P 164/82 05/25 003 B/P Mean 109 05/25 003 O2 Delivery Room air 05/25 003 Temp 38.3 05/25 003 Pulse 92 05/25 003 Resp 17 05/25 003 Last Documented: Result Date Time Pulse Ox 95 05/25 0333 B/P 155/70 05/25 0333 B/P Mean 98 05/25 0333 O2 Delivery Room air 05/25 033 Pulse 86 05/25 033 Resp 18 05/25 033 Temp 38.3 05/25 003 All vital signs available at the time of this en try have been reviewed. Clinical Impression Clinical Impression Primary Impression: PNA (pneumonia) Disposition Decision Admit )( Admission Accepts Yes )( Accepted Time 418 )( Accepted Date 05/25/22 Discharge/Care Plan (Auto) [...] MD on 0 06/29/22 at 0712 RPT #:[id number] END OF REPORT 2022-05-16 20:24:00-00:00 [id number] [address] PATIENT NAME: KAYLA HO ADMIT DATE: 05/16/22 ACCOUNT NO: [id number] ROOM NO: AGE: 76 REPORT TYPE: eELECTROCARDIOGRAM SEX: M ADMITTING PHYSICIAN: ATTENDING PHYSICIAN: Order: [id number] Test Reason : MED CLEAR Test Date/Time [...] MD at 2108 PATIENT NAME: KAYLA HO 30
[2022-08-08] MEDS ORDERED: LORazepam 2 MG/ML VIAL ONE (17:05)
[2022-08-08 17:17] LABS: Hematocrit 33.5 % (39.6-49.0); Lymphocytes % 15.1 % (15.3-44.8); MCV 90.5 fL (80-100); MPV 7.8 fL (7.6-11.3)
[2022-08-08 17:31] LABS: Potassium 3.1 mEq/L (3.5-5.1); Troponin High Sensitivity 44.4 pg/mL (<58.9)
--- NOTE | 2022-08-08 18:01 | RAD REPORT ---
EXAM DESCRIPTION: Lizzeth Single View08/08/2022 5:50 pm CLINICAL HISTORY: Chest pain COMPARISON: August 06, 2022 FINDINGS: Mild left basilar opacity unchanged Pulmonary vascular congestion present Heart is mildly enlarged. Aorta is tortuous IMPRESSION: Mild left basilar opacity may represent mild pneumonia
--- NOTE | 2022-08-08 18:09 | RAD REPORT ---
EXAM DESCRIPTION: CT - Head Brain Wo Cont - 08/08/2022 5:57 pm CLINICAL HISTORY: Alteration of awareness/confusion COMPARISON: 08/06/2022 TECHNIQUE: Computed axial tomography of the head was obtained. IV contrast was not requested. All CT scans are performed using dose optimization technique as appropriate and may include automated exposure control or mA/KV adjustment according to patient size. FINDINGS: An intracranial bleed is not seen The ventricles are normal in caliber No extra-axial fluid collection is noted. No significant hypodensity within the brain. Fluid within the sinuses/ mastoids is not seen. IMPRESSION: No acute intracranial abnormality is seen If patient's symptoms persist MRI of the brain would be recommended
--- NOTE | 2022-08-08 18:40 | EDPHYS ---
Physician Documentation [facility] Name: Shea Campbell Age: 76 yrs Sex: Male : 1945 Arrival Date: 08/08/2022 Time: 16:39 Bed 19 Private MD: ED Physician Parish Sullivan HPI: 08/08 16:45 This 76 yrs old Male presents to ER via Unassigned with complaints of Unresponsive. m 16:45 The patient's problem is reported as altered mental status, decreased responsiveness. jmm Onset: The symptoms/episode began/occurred acutely, just prior to arrival. Duration: This was a single incident. The symptoms are alleviated by nothing. The symptoms are aggravated by nothing. Associated signs and symptoms:. Unable to obtain HPI due to baseline dementia. Historical: - Allergies: 16:48 No Known Allergies; jl7 - Home Meds: 16:48 memantine 10 mg Oral tab 1 tab 2 times per day [Active]; Aricept 10 mg Oral tablet jl7 [Active]; carvedilol 12.5 mg Oral tab 1 tab 2 times per day [Active]; Flomax Oral [Active]; fenofibrate 145 mg daily Oral [Active]; escitalopram oxalate 20 mg Oral tab once daily [Active]; clopidogrel 75 mg Oral tab 1 tab once daily [Active]; Levoxyl 25 mcg Oral tab 1 tab once daily [Active]; atorvastatin 80 mg Oral tab 1 tab once daily [Active]; finasteride 5 mg oral tablet [Active]; - PMHx: 16:48 BPH; Hyperlipidemia; Hypertension; Thyroid problem; VASCULAR DEMENTIA; Depressive 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 - Social history:: Smoking status: unknown. ROS: 16:45 Unable to obtain ROS due to altered mental status, baseline dementia. [facility] Exam: 16:45 Head/Face: atraumatic. Eyes: EOMI, no conjunctival erythema appreciated ENT: Moist jmm Mucus Membranes Neck: Trachea midline, Supple Chest/axilla: Normal chest wall appearance and motion. Cardiovascular: Regular rate and rhythm. No edema appreciated Respiratory: Normal respirations, no respiratory distress appreciated Abdomen/GI: Non distended Back: Normal ROM Skin: General appearance color normal MS/ Extremity: Moves all extremities, no obvious deformities appreciated, no edema noted to the lower extremities 16:45 Constitutional: The patient appears awake, anxious, restless. 16:45 Neuro: Orientation: Not oriented to person, place, time, situation. 16:45 Psych: Behavior/mood is anxious, aggressive. Vital Signs: 17:06 BP 170 / 94; Pulse 65; Resp 17; Temp 97.8; Pulse Ox 95% ; ap3 19:03 BP 145 / 84; Pulse 65; Pulse Ox 95% on R/A; ap3 MDM: 16:45 Patient medically screened. [facility] 18:44 Differential diagnosis: CVA, TIA, Dementia, Sepsis, UTI, pneumonia. Data reviewed: [facility] vital signs, nurses notes. Consideration of Admission/Observation Escalation of care including admission/observation considered. Management of patient was discussed with the following: Abida Resendiz PA-C. I considered the following discharge prescriptions or medication management in the emergency department Medications were administered in the Emergency Department. See 16:46 Order name: Basic Metabolic Panel; Complete Time: 17:43 [facility] 08/08 16:46 Order name: CBC with Diff; Complete Time: 17:43 [facility] 08/08 16:46 Order name: Troponin HS; Complete Time: 17:43 [facility] 08/08 16:46 Order name: Urinalysis w/ reflexes [facility] 08/08 16:54 Order name: Blood Culture Adult (2) [facility] 08/08 16:54 Order name: Lactate w/ 2H reflex if indic.; Complete Time: 17:56 [facility] 08/08 16:46 Order name: XRAY Chest (1 view); Complete Time: 18:16 [facility] 08/08 16:46 Order name: CT Head Brain wo Cont; Complete Time: 18:16 [facility] 08/08 16:46 Order name: EKG; Complete Time: 16:47 [facility] 08/08 16:46 Order name: Cardiac monitoring; Complete Time: 17:10 [facility] 08/08 16:46 Order name: EKG - Nurse/Tech; Complete Time: 17:10 [facility] 08/08 16:46 Order name: IV Saline Lock; Complete Time: 17:02 [facility] 08/08 16:46 Order name: Labs collected and sent; Complete Time: 17:02 [facility] 08/08 16:46 Order name: O2 Per Protocol; Complete Time: 16:47 [facility] 08/08 16:46 Order name: O2 Sat Monitoring; Complete Time: 16:47 jmm Administered Medications: 17:02 Drug: Ativan IVP 1 mg Route: IVP; Site: right wrist; ap3 18:45 Follow up: Response: No adverse reaction ap3 19:02 Drug: Rocephin IV 1 grams Route: IV; Rate: calculated rate; Site: right forearm; ap3 Disposition Summary: 08/08/22 18:39 Hospitalization Ordered Hospitalization Status: Inpatient Admission jmm Location: Telemetry/MedSurg (observation) jmm Condition: Stable jmm Problem: new jmm Symptoms: are unchanged jmm Bed/Room Type: Standard jmm Provider: Franck Mendieta(08/08/22 19:53) sb4 Room Assignment: [facility](08/08/22 20:20) Diagnosis - Altered mental status, unspecified jmm - Pneumonia jmm Forms: - Medication Reconciliation Form jmm - SBAR form jmm Signatures: Dispatcher [employer] EDИван Nicolas PA PA jmm Garcia, Cindy RN RN Nasrin Calles RN RN jl7 Beatrice Taylor RN RN ap3 Dariela Resendiz PAAndreyC PAAndreyC sb4 Corrections: (The following items were deleted from the chart) 19:53 18:39 Dariela Resendiz sb4 20:20 18:39 jmm cg
--- NOTE | 2022-08-08 18:40 | ER ---
Nurse's Notes [facility] Name: Shea Campbell Age: 76 yrs Sex: Male : 1945 Arrival Date: 08/08/2022 Time: 16:39 Bed 19 Private MD: Diagnosis: Altered mental status, unspecified;Pneumonia Presentation: 08/08 16:45 Chief complaint: Patient states: Toned out for unresponsive, pt at baseline on EMS jl7 arrival to [facility], pt A\T\Ox0, VSS, pt uncooperative at this time. Coronavirus screen: At this time, the client does not indicate any symptoms associated with coronavirus-19. Ebola Screen: No symptoms or risks identified at this time. Risk Assessment: Do you want to hurt yourself or someone else? Unable to obtain. Onset of symptoms is unknown. Care prior to arrival: None. 16:45 Method Of Arrival: EMS: [facility] jl7 16:45 Acuity: LELA 3 jl7 17:07 Initial Sepsis Screen: Does the patient meet any 2 criteria? No. Patient's initial ap3 sepsis screen is negative. Does the patient have a suspected source of infection? Yes: Other: pt being treated with antibiotics out of the hospital. Triage Assessment: 16:48 General: Appears in no apparent distress. uncomfortable, Behavior is agitated, jl7 restless, uncooperative. Pain: Denies pain. Historical: - Allergies: 16:48 No Known Allergies; jl7 - Home Meds: 16:48 memantine 10 mg Oral tab 1 tab 2 times per day [Active]; Aricept 10 mg Oral tablet jl7 [Active]; carvedilol 12.5 mg Oral tab 1 tab 2 times per day [Active]; Flomax Oral [Active]; fenofibrate 145 mg daily Oral [Active]; escitalopram oxalate 20 mg Oral tab once daily [Active]; clopidogrel 75 mg Oral tab 1 tab once daily [Active]; Levoxyl 25 mcg Oral tab 1 tab once daily [Active]; atorvastatin 80 mg Oral tab 1 tab once daily [Active]; finasteride 5 mg oral tablet [Active]; - PMHx: 16:48 BPH; Hyperlipidemia; Hypertension; Thyroid problem; VASCULAR DEMENTIA; Depressive 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 - Social history:: Smoking status: unknown. Screenin:06 [facility] ED Fall Risk Assessment (Adult) Confusion or Disorientation Yes (5 pts) ap3 Impaired Gait Yes (1 pt) Altered Elimination Yes (1 pt) Score/Fall Risk Level 3 or more points = High Risk. Abuse screen: Denies threats or abuse. Nutritional screening: No deficits noted. Tuberculosis screening: No symptoms or risk factors identified. Assessment: 17:08 Reassessment: Patient and/or family updated on plan of care and expected duration. Pain ap3 level reassessed. sitter remains at bedside for patients safety due to fall risk. . General:. 19:00 Reassessment: Patient and/or family updated on plan of care and expected duration. Pain vc1 level reassessed. AT BEDSIDE. Vital Signs: 17:06 BP 170 / 94; Pulse 65; Resp 17; Temp 97.8; Pulse Ox 95% ; ap3 19:03 BP 145 / 84; Pulse 65; Pulse Ox 95% on R/A; ap3 ED Course: 16:45 Patient arrived in ED. jl7 16:45 Иван Perry PA is PHCP. jmm 16:45 Parish Sullivan MD is Attending Physician. jmm 16:46 Beatrice Taylor RN is Primary Nurse. ap3 16:48 Triage completed. jl7 16:48 Arm band placed on right wrist. jl7 17:05 Inserted saline lock: 20 gauge in right forearm, using aseptic technique. Blood ap3 collected. 17:06 Patient has correct armband on for positive identification. Bed in low position. Call ap3 light in reach. Side rails up X2. sitter placed at bedside. site monitor on. Pulse ox on. NIBP on. Door closed. Noise minimized. 17:51 XRAY Chest (1 view) In Process Unspecified. EDMS 17:58 CT Head Brain wo Cont In Process Unspecified. EDMS 18:39 Dariela Resendiz PA-C is Hospitalizing Provider. jmm 19:02 Pt visited by . ap3 19:53 Franck Mendieta is Hospitalizing Provider. sb4 Administered Medications: 17:02 Drug: Ativan IVP 1 mg Route: IVP; Site: right wrist; ap3 18:45 Follow up: Response: No adverse reaction ap3 19:02 Drug: Rocephin IV 1 grams Route: IV; Rate: calculated rate; Site: right forearm; ap3 Medication: 17:08 VIS not applicable for this client. ap3 Outcome: 18:39 Decision to Hospitalize by Provider. carla 21:15 Patient left the ED. kd3 Signatures: Dispatcher [employer] EDMS Иван Perry PA PA jmm Leal, Jahala, RN RN jl7 Beatrice Taylor RN RN aristides3 Vicki Vargas RN RN kd3 Pina Samuel RN RN vc1 Dariela Resendiz PAYani PAYani sb4
[2022-08-08] MEDS ORDERED: NA CHLORIDE 0.9% 50 ML ONE (19:06)
[2022-08-08] MEDS ORDERED: CEFTRIAXONE 1000 MG/VIAL ONE (19:06)
--- NOTE | 2022-08-08 20:08 | P.HP ---
Certification for Inpatient Patient admitted to: Observation With expected LOS: <2 Midnights Patient will require the following post-hospital care: None Practitioner: I am a practitioner with admitting privileges, knowledge of patient current condition, hospital course, and medical plan of care. Services: Services provided to patient in accordance with Admission requirements found in Title 42 Section 412.3 of the Code of Federal Regulations Patient History Date of Service: 08/08/22 Primary Care Provider: Satnam Reason for admission: Pneumonia, AMS History of Present Illness: Mr. Campbell is a 76 year old male with past medical history of severe alzheimers and vascular dementia, BPH, hypertension, hyperlipidemia, coronary artery disease, and hypothyroidism who presented to the emergency department via EMS from memory unit of custodial with decreased responsiveness. retirement stated that patient is oriented x 1 at baseline but today he was barely responding and oriented x 0. Patient was seen here 2 days ago for a similar presentation, diagnosed with pneumonia and UTI, and discharged with cefdinir and doxycycline. Today his chest xray re-demonstrated what was shown 2 days ago- "Mild left basilar opacity may represent mild pneumonia." Urine is pending. No significant lab abnormalities. He is not hypoxic or septic. Still oriented x 0, responsive to verbal stimuli. Will admit for further management of AMS, pneumonia failed outpatient treatment. Allergies No Known Allergies Allergy (Verified 03/08/21 13:43) Home medications list reviewed: Yes Home Medications: Aspirin [Aspirin EC 325 MG] 1 mg PO DAILY 12/27/17 Clopidogrel Bisulfate [Plavix] 75 mg PO DAILY 12/27/17 Escitalopram Oxalate 10 mg PO DAILY 12/27/17 Fenofibrate [Tricor] 145 mg PO DAILY 12/27/17 Levothyroxine Sodium [Levoxyl] 75 mcg PO DAILY 12/27/17 Simvastatin 10 mg PO DAILY 12/27/17 carvediloL [Carvedilol] 12.5 mg PO BID 12/27/17 - Past Medical/Surgical History Diabetic: No -: Alzheimers & Vascular Dementia -: Coronary Artery Disease -: Hypothyroidism -: Hyperlipidemia -: Hypertension -: BPH Psychosocial/ Personal History: Patient lives at a custodial. He is . - Family History Family History: Reviewed- Non-Contributory - Social History Smoking Status: Never smoker Alcohol use: No CD- Drugs: No Caffeine use: No Place of Residence: [place] Review of Systems is unable to be obtained Physical Examination - Vital Signs Temperature: 97.8 F Blood Pressure: 145/84 Pulse: 65 Respirations: 17 Pulse Ox (%): 95 - Physical Exam General: In no apparent distress, Demented HEENT: Atraumatic, Normocephalic Neck: Supple, 2+ carotid pulse no bruit Respiratory: Clear to auscultation bilaterally, Normal air movement Cardiovascular: No edema, Regular rate/rhythm Gastrointestinal: Normal bowel sounds, Hypoactive Musculoskeletal: No clubbing Integumentary: No rashes Neurological: Sensation intact, Dementia - Studies Laboratory Data (last 24 hrs) 08/08/22 16:57: WBC 6.40, Hgb 11.2 L, Hct 33.5 L, Plt Count 287 08/08/22 16:57: Sodium 144, Potassium 3.1 L, BUN 12, Creatinine 1.26, Glucose 110 H Assessment and Plan - Problems (Diagnosis) (1) Pneumonia Current Visit: Yes Status: Acute Qualifiers: Pneumonia type: due to unspecified organism Laterality: left Lung location: lower lobe of lung Qualified Code(s): J18.9 - Pneumonia, unspecified organism (2) Dementia Current Visit: Yes Status: Chronic Qualifiers: Dementia type: Alzheimer's Alzheimer's disease onset: unspecified onset Dementia severity: severe Dementia behavioral or psychological symptom: with other behavioral disturbance Qualified Code(s): G30.9 - Alzheimer's disease, unspecified; F02.C18 - Dementia in other diseases classified elsewhere, severe, with other behavioral disturbance (3) Coronary artery disease Current Visit: Yes Status: Chronic Qualifiers: Coronary Disease-Associated Artery/Lesion type: [place] artery [place] vs. transplanted heart: [place] heart Associated angina: without angina Qualified Code(s): I25.10 - Atherosclerotic heart disease of [place] coronary artery without angina pectoris (4) Hypertension Current Visit: Yes Status: Chronic Qualifiers: Hypertension type: primary hypertension Qualified Code(s): I10 - Essential (primary) hypertension (5) Hyperlipidemia Current Visit: Yes Status: Chronic Qualifiers: Hyperlipidemia type: unspecified Qualified Code(s): E78.5 - Hyperlipidemia, unspecified (6) Hypothyroidism Current Visit: Yes Status: Chronic Qualifiers: Hypothyroidism type: unspecified Qualified Code(s): E03.9 - Hypothyroidism, unspecified - Plan Patient is admitted for further management of pneumonia and altered mental status. Continue azithromycin and rocephin. Blood cultures obtained. Urine pending. Anticipate improvement in mentation with improvement of pneumonia. Fall precautions in place. Monitor and replete electrolytes per protocol. Reconcile and continue home medications. Lovenox for VTE prophylaxis. DNR, per . Discharge Plan: [place] Plan to discharge in: 24 Hours - Advance Directives Does patient have a Living Will: No Does patient have a Durable POA for Healthcare: No - Code Status/Comfort Care Code Status Assessed: Yes Code Status: Do Not Attempt Resuscitat Physician Review: Patient Assessed, Agree with Above Assessment and Plan Critical Care: No Time Spent Managing Pts Care (In Minutes): 50
[2022-08-08] MEDS ORDERED: ACETAMINOPHEN 500 MG TAB PO PRN (21:39)
[2022-08-08] MEDS ORDERED: ONDANSETRON 4 MG/2 ML VIAL IV PRN (21:39)
[2022-08-08] MEDS ORDERED: ALBUTEROL 2.5 MG/3 ML NEB SOL NEB PRN (21:39)
[2022-08-09 03:52] VITALS: O2SAT 96
[2022-08-09 04:37] LABS: Potassium 2.7 mEq/L (3.5-5.1)
[2022-08-09] MEDS ORDERED: NA CHLORIDE 0.9% 500 ML ONE (04:55)
[2022-08-09] MEDS: KCL 20 MEQ/100 mL IVPB 20 MEQ/100 ML BAG IV SCH ×3 (04:59→09:03)
[2022-08-09] MEDS: ENOXAPARIN 40 MG/0.4 ML SQ SCH (09:04)
[2022-08-09] MEDS: CEFTRIAXONE 1,000 MG in NA CHLORIDE 0.9% 50 ML IVPB SCH (09:09)
[2022-08-09] MEDS: AZITHROMYCIN IV 500 MG in NA CHLORIDE 0.9% 250 ML IVPB SCH (09:12)
[2022-08-09] MEDS ORDERED: AZITHROMYCIN 500 MG INJ IVPB ONE (09:19)
[2022-08-09 12:05] LABS: Specific Gravity 1.008 (1.005-1.030); Urine Bacteria None Seen /HPF (<20); Urine Bilirubin NEGATIVE (Negative); Urine Blood Negative (Negative); Urine Clarity Turbid (Clear); Urine Color Light-Yellow (Yellow); Urine Glucose NEGATIVE (Negative); Urine Protein NEGATIVE (Negative); Urine RBC <5 /HPF (None Seen); Urine Urobilinogen Normal (Normal)
[2022-08-09] MEDS ORDERED: ALBUTEROL 2.5 MG/3 ML NEB SOL NEB PRN (14:00)
--- NOTE | 2022-08-09 14:53 | P.PN ---
Subjective Date of Service: 08/09/22 Primary Care Provider: Satnam Chief Complaint: Pneumonia, AMS Patient has dementia and not able to give any subjective complaint. About 2600 ml urine was drained after straight cath for urinalysis and urine culture. Spouse stated patient is currently at baseline mental status. Patient apparently developed sudden unresponsive of unknown duration. No witnessed seizures. Physical Examination - Vital Signs Temperature: 97.7 F Blood Pressure: 153/77 Pulse: 73 Respirations: 16 Pulse Ox (%): 93 - Studies Laboratory Data (last 24 hrs) 08/08/22 16:57: WBC 6.40, Hgb 11.2 L, Hct 33.5 L, Plt Count 287 08/08/22 16:57: Sodium 144, Potassium 3.1 L, BUN 12, Creatinine 1.26, Glucose 110 H Assessment And Plan - Current Problems (Diagnosis) (1) Coronary artery disease Current Visit: Yes Status: Chronic Qualifiers: Coronary Disease-Associated Artery/Lesion type: [place] artery [place] vs. transplanted heart: [place] heart Associated angina: without angina Qualified Code(s): I25.10 - Atherosclerotic heart disease of [place] coronary artery without angina pectoris (2) Hyperlipidemia Current Visit: Yes Status: Chronic Qualifiers: Hyperlipidemia type: unspecified Qualified Code(s): E78.5 - Hyperlipidemia, unspecified (3) Hypertension Current Visit: Yes Status: Chronic Qualifiers: Hypertension type: primary hypertension Qualified Code(s): I10 - Essential (primary) hypertension (4) Hypothyroidism Current Visit: Yes Status: Chronic Qualifiers: Hypothyroidism type: unspecified Qualified Code(s): E03.9 - Hypothyroidism, unspecified - Plan Physical Exam General: In no apparent distress, Demented HEENT: Atraumatic, Normocephalic Neck: Supple, 2+ carotid pulse no bruit Respiratory: Clear to auscultation bilaterally, Normal air movement Cardiovascular: No edema, Regular rate/rhythm Gastrointestinal: Normal bowel sounds, nontender. Musculoskeletal: No clubbing Integumentary: No rashes Neurological: No focal motor deficit, dementia. Plan: AMS/Alzheimer dementia Etiology of AMS is unclear. Differential diagnosis includes seizures versus metabolic encephalopathy. CT head negative for acute disease. Obtain MRI Monitor for seizures. Obtain UA to rule out UTI. Monitor for agitation. Haldol as needed. Acute urinary retention Urinalysis is pending. Start Flomax. Serial bladder scan. Pneumonia X-ray shows mild left basilar pneumonia Spouse reports patient sometimes aspirates on thin liquids. Speech therapy consult. Antibiotics. Hypokalemia Corrected potassium level as needed. Hyperlipidemia/coronary artery disease/hypertension/hypothyroidism Continue home medications.
[2022-08-09] MEDS ORDERED: NA CHLORIDE 0.9% 250 ML ONE (15:29)
[2022-08-09] MEDS ORDERED: carvediloL 12.5 MG TAB PO SCH (17:53)
--- NOTE | 2022-08-09 19:47 | RAD REPORT ---
EXAM DESCRIPTION: MRI - Brain Wo Cont - 08/09/2022 3:25 pm CLINICAL HISTORY: Sudden AMS COMPARISON: Head CT of the previous day TECHNIQUE: Multiplanar multisequence MRI of the brain performed without IV contrast. FINDINGS: Motion artifact somewhat limits evaluation, despite attempts at repeat imaging. No evidence of acute infarct or other diffusion signal abnormality. No evidence of acute intracranial hemorrhage or abnormal extra-axial fluid collections. Mild diffuse parenchymal volume loss, as well as asymmetric atrophy of the left hippocampal head, sta ble. Ventricular caliber otherwise within normal for age. Midline structures are unremarkable. Scattered subcortical and deep white matter T2/FLAIR hyperintensities, nonspecific, and stable, most suggestive of chronic small vessel ischemic changes. No mass effect or midline shift. Major vascular flow voids are preserved. Mastoid air cells show patchy fluid opacification. Paranasal sinuses are well aerated. IMPRESSION: No acute intracranial process. No evidence of ventriculomegaly or mass effect. Stable wake findings as above.
[2022-08-09] MEDS: FINASTERIDE 5 MG TAB PO SCH (20:18)
[2022-08-09] MEDS: carvediloL 12.5 MG TAB PO SCH (20:18)
[2022-08-09] MEDS: MEMANTINE HCL 10 MG TABLET PO SCH (20:19)
[2022-08-09] MEDS ORDERED: HYDRALAZINE HCL 20 MG/ML VIAL IV PRN (20:55)
[2022-08-09] MEDS ORDERED: TRAZODONE 50 MG TABLET PO SCH (21:00)
[2022-08-09] MEDS ORDERED: TAMSULOSIN 0.4 MG SR CAP PO SCH (21:00)
[2022-08-09 21:08] VITALS: BMI 25.4
[2022-08-09] MEDS ORDERED: POTASSIUM 25 MEQ EFFERV TAB PO ONE (22:01)
[2022-08-10] MEDS ORDERED: POTASSIUM 25 MEQ EFFERV TAB PO ONE (05:43)
[2022-08-10] MEDS ORDERED: LEVOTHYROXINE SOD 0.025 MG TAB PO SCH (06:30)
--- NOTE | 2022-08-10 08:21 | EKG ---
Test Date: 2022-08-08 Test Time: 17:02:40 Associate Professor Of Philosophy: AVAIN MEASUREMENT RESULTS: Intervals: Rate: 67 HI: 172 QRSD: 80 QT: 504 QTc: 532 [place]: P: 43 HI: 172 QRS: -2 T: 63 INTERPRETIVE STATEMENTS: Normal sinus rhythm Possible Inferior infarct, age undetermined Anterior infarct, age undetermined Abnormal ECG Compared to ECG 08/06/2022 18:32:16 Myocardial infarct finding now present Ventricular premature complex(es) no longer present Electronically Signed On 08-10-22 08:18:13 CDT by Bao Mejia
[2022-08-10] MEDS: AZITHROMYCIN IV 500 MG in NA CHLORIDE 0.9% 250 ML IVPB SCH (08:32)
[2022-08-10] MEDS: CEFTRIAXONE 1,000 MG in NA CHLORIDE 0.9% 50 ML IVPB SCH (08:33)
[2022-08-10] MEDS: ENOXAPARIN 40 MG/0.4 ML SQ SCH (08:33)
[2022-08-10] MEDS: carvediloL 12.5 MG TAB PO SCH (08:34)
[2022-08-10] MEDS: FINASTERIDE 5 MG TAB PO SCH (08:34)
[2022-08-10] MEDS: MEMANTINE HCL 10 MG TABLET PO SCH (08:34)
[2022-08-10 08:36] VITALS: BP 165/94
[2022-08-10] MEDS ORDERED: LANSOPRAZOLE 15 MG PO SCH (09:00)
[2022-08-10] MEDS ORDERED: FENOFIBRATE 160 MG TAB PO SCH (09:00)
[2022-08-10] MEDS ORDERED: PANTOPRAZOLE 40MG TABLET PO SCH (09:00)
[2022-08-10] MEDS ORDERED: HOME MED 1 EA UNK (Magnesium Oxide [Magnesium Oxide] 400 MG Tablet) PO SCH (09:00)
[2022-08-10] MEDS ORDERED: ESCITALOPRAM 20 MG TAB PO SCH (09:00)
[2022-08-10] MEDS ORDERED: HOME MED 1 EA UNK (Escitalopram Oxalate [Escitalopram Oxalate] 10 MG Tablet) PO SCH (09:00)
[2022-08-10] MEDS ORDERED: CLOPIDOGREL 75 MG TABLET PO SCH (09:00)
[2022-08-10] MEDS ORDERED: MAGNESIUM OXIDE 400 MG TAB PO SCH (09:00)
[2022-08-10 09:17] VITALS: TEMP 97.9
[2022-08-10 09:54] LABS: SARS-CoV-2 Antigen Rapid Res Negative (Negative)
--- NOTE | 2022-08-10 10:22 | P.DS ---
Admission Date: 08/08/22 Discharge Date: 08/10/22 Primary Care Provider: Satnam Disposition: TRANSFER TO LONGTERM Discharge Condition: FAIR Reason for Admission: Pneumonia, AMS - Problems (1) Coronary artery disease Current Visit: Yes Status: Chronic Qualifiers: Coronary Disease-Associated Artery/Lesion type: [place] artery [place] vs. transplanted heart: [place] heart Associated angina: without angina Qualified Code(s): I25.10 - Atherosclerotic heart disease of [place] coronary artery without angina pectoris (2) Hyperlipidemia Current Visit: Yes Status: Chronic Qualifiers: Hyperlipidemia type: unspecified Qualified Code(s): E78.5 - Hyperlipidemia, unspecified (3) Hypertension Current Visit: Yes Status: Chronic Qualifiers: Hypertension type: primary hypertension Qualified Code(s): I10 - Essential (primary) hypertension (4) Hypothyroidism Current Visit: Yes Status: Chronic Qualifiers: Hypothyroidism type: unspecified Qualified Code(s): E03.9 - Hypothyroidism, unspecified Brief History of Present Illness: Mr. Campbell is a 76 year old male with past medical history of severe Alzheimer dementia, BPH, hypertension, hyperlipidemia, coronary artery disease, and hypothyroidism who presented to the emergency department via EMS from memory unit of long-term with decreased responsiveness. skilled nursing stated that patient is oriented x 1 at baseline but he was barely responding and oriented x 0. Patient was seen here 2 days prior for a similar presentation, diagnosed with pneumonia and UTI, and discharged with cefdinir and doxycycline. Today his chest xray re-demonstrated what was shown 2 days ago- "Mild left basilar opacity may represent mild pneumonia." Urinalysis showed pyuria. No significant lab abnormalities. He was not hypoxic or septic. Patient was admitted for further management. Hospital Course: AMS/Alzheimer dementia Etiology of AMS is unclear. Likely metabolic encephalopathy. CT head negative for acute disease. MRI: No acute intracranial process. No evidence of ventriculomegaly or mass effect. No seizures during the hospital stay UA showed pyuria, no bacteria No agitation during the hospital stay. Patient is currently at baseline and deemed stable for discharge. Acute urinary retention Urinalysis showed pyuria. Resumed his Flomax. Patient was able to void without difficulty afterwards. Pneumonia X-ray shows mild left basilar pneumonia Patient has been tolerating diet, finishing his meals, and no aspiration noted. He was treated with antibiotics. Hyperlipidemia/coronary artery disease/hypertension/hypothyroidism Continued home medications. Vital Signs/Physical Exam: Temp Pulse Resp BP Pulse Ox 97.9 F 70 16 165/94 H 95 08/10/22 08:00 08/10/22 08:34 08/10/22 08:00 08/10/22 08:34 08/10/22 08:00 General: In no apparent distress, Oriented x1 HEENT: Mucous membr. moist/pink Neck: Supple, JVD not distended Respiratory: Clear to auscultation bilaterally, Normal air movement Cardiovascular: No edema, Regular rate/rhythm, Normal S1 S2 Gastrointestinal: Normal bowel sounds, Soft and benign Musculoskeletal: No swelling Neurological: Normal strength at 5/5 x4 extr Laboratory Data at Discharge: WBC 6.40 thou/uL (4.3-10.9) 08/08/22 16:57 Hgb 11.2 g/dL (13.6-17.9) L 08/08/22 16:57 Hct 33.5 % (39.6-49.0) L 08/08/22 16:57 Plt Count 287 thou/uL (152-406) 08/08/22 16:57 Sodium 143 mEq/L (136-145) 08/10/22 02:37 Potassium 3.0 mEq/L (3.5-5.1) L 08/10/22 02:37 BUN 11 mg/dL (7-18) 08/10/22 02:37 Creatinine 1.10 mg/dL (0.70-1.30) 08/10/22 02:37 Glucose 83 mg/dL (74-106) 08/10/22 02:37 Home Medications: Clopidogrel Bisulfate [Plavix*] 75 mg PO DAILY 12/27/17 Escitalopram Oxalate 20 mg PO DAILY 12/27/17 Fenofibrate [Tricor*] 145 mg PO DAILY 12/27/17 Levothyroxine Sodium [Levoxyl] 25 mcg PO DAILY 12/27/17 carvediloL [Carvedilol] 12.5 mg PO BID 12/27/17 Cefdinir [Cefdinir*] 300 mg PO BID 08/09/22 Doxycycline Hyclate 100 mg PO Q12H 08/09/22 Finasteride 5 mg PO DAILY 08/09/22 Lansoprazole 15 mg PO DAILY 08/09/22 Magnesium Oxide 400 mg PO DAILY 08/09/22 Memantine HCl [Namenda] 10 mg PO BID 08/09/22 Tamsulosin HCl [Flomax] 0.4 mg PO DAILY 08/09/22 Trazodone HCl 0.5 tab PO BEDTIME 08/09/22 Diet: AHA Activity: Fall precautions Followup: NONE,NONE [Primary Care Provider] - 1 Week Time spent managing pt's care (in minutes): 36
== END 2022-08-10 12:42 ==
LOC: ER 16:39 → ERHOLD 19:52 → 2ND 20:23
PROVIDERS: ADMIT Internal Medicine; ATTEND Internal Medicine
DX: J18.9 Pneumonia, unspecified organism (principal); G30.9 Alzheimer's disease, unspecified; F02.80 Dementia in other diseases classified elsewhere, unspecified severity, without behavioral disturbance, psychotic disturbance, mood disturbance, and anxiety; R41.82 Altered mental status, unspecified; I25.10 Atherosclerotic heart disease of native coronary artery without angina pectoris; N40.0 Benign prostatic hyperplasia without lower urinary tract symptoms; I10 Essential (primary) hypertension; E78.5 Hyperlipidemia, unspecified; E03.9 Hypothyroidism, unspecified; E87.6 Hypokalemia; R82.81 Pyuria; R33.9 Retention of urine, unspecified; Z20.822 Contact with and (suspected) exposure to COVID-19
CPT/HCPCS: 93005; 87040 ×2; 87088; 85025; 81001; 87086; 80048 ×3; 36415 ×2; 84132; 83605; 84484; 70450; 71045; 70551; 94010 ×2; 99285; 87811; J3480 ×3; J1650 ×2; J7050 ×3; J7040; J0696 ×3; G0378

== ENCOUNTER 2022-09-14 08:45 | Emergency (ER) | payer OTHER ==
--- OUTSIDE RECORDS SUMMARY | 2022-09-14 08:56 | XMS REPORT | Continuity of Care Document ---
:1945 Author Organization [facility] t Address [address] [place] [id number] Care Team Providers Name Role Phone Nadya YOUNG, [place] Primary Care Physician [phone] Watkins_H Attending Clinician Unavailable Taiwo Reynolds Attending Clinician Unavailable Lakhwinder Davis Attending Clinician Unavailable MARLON EAST Attending Clinician Unavailable MARLON EAST Attending Clinician Unavailable Prabhakar YOUNG, Gustavo Attending Clinician Ed MARSHALL, Aman Acosta Attending Clinician Unavailable Blu Bhatti Attending Clinician Unavailable MADINA HILTON Attending Clinician Unavailable Madina Bell Attending Clinician Sylvie [facility] Attending Clinician Unavailable Doctor Unassigned, [place] Attending Clinician Unavailable GINA WILLOUGHBY Attending Clinician Unavailable Gina Paez Attending Clinician Lenora Patel RN Attending Clinician Unavailable Camilla Boateng MD Attending Clinician CAMILLA BOATENG Attending Clinician Unavailable Fernando Woodward MD Attending Clinician BERTHA KATHLEEN Attending Clinician Unavailable Maynor_Lalit Admitting Clinician Unavailable Taiwo Reynolds Admitting Clinician Unavailable Physician, No Primary or Family Admitting Clinician Unavaila MADINA Lewis Admitting Clinician Unavailable MARLON EAST Admitting Clinician Unavailable CAMILLA BOATENG Admitting Clinician Unavailable Camilla Boateng MD Admitting Clinician Payers Payer Name Policy Type Policy Number Effective Date Expiration Date S holden MEDICARE B-[place]: [id number] 2012 [employer] 00:00:00 MEDICARE PART A [id number] 2012 \\T\\ B 00:00:00 DEJAN [id number] 2012 00:00:00 Problems Condition Condition Condition Status [...] disease 00:00: Hospita involving involving 00 l havasupai havasupai 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 03-07 ity of disease disease 00:00: [place] involving involving 00 Medi jessica havasupai havasupai Branch 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 00:00: Hospit a 00 l CAD in CAD in Disease Active 2015-02 Methodi havasupai havasupai 03-07 st artery artery 00:00: Hospita 00 [...] Allergie 4-01 [place] 00:00: e 00 [facility] No Known DA Active U [facility] Allergie 3-20 Clear s 00:00: [place] 00 [facility] No Known Propensi Active 2015-02 Method i Drug ty to 03-07 st Allergie adverse 00:00: Hospita s reaction 00 l s to drug NO KNOWN Drug Active Univers ALLERGIE Class ity of S [facility] Family History Family Member Diagnosis Comments Start Date Stop Date Source Other Coronary artery [facility] disease Social History Social Habit Start Date Stop Date Quantity Comments Source Gender identity 2018-11-05 Identifies as Method ist 20:32:19 male gender Hospital (finding) History of Tobacco [facility] - Use [facility] Sex Assigned At Common Sp jessica - [facility] Sexual orientation Method ist Hospital Exposure to 2021-12-19 2021-12-29 Not sure University of SARS-CoV-2 (event) 00:00:00 08:43:00 [facility] Tobacco use and 2021-11-01 2021-11-01 Smokeless tobacco Un iversity of exposure 00:00:00 00:00:00 non-user [facility] Alcohol intake 2017-09-12 2017-09-12 Current drinker [facility] dist 00:00:00 00:00:00 of [facility] (finding) History of Social 2016-02-09 2016-02-[address] function 00:00:00 00:00:00 Hospital Smoking Status Start Date Stop Date Source Tobacco [facility] Never smoked tobacco [facility] Medications Ordered Filled Start Stop Current [...] 15 Medical tablet Branch cyclobenzap 2021-02 Yes [id number] 5mg Take 1 Univers rine 5 mg 0-28 [id number] tablet by ity of tablet 00:00: mouth 3 (three) Medical times Branch daily as needed for Muscle Spasms. cyclobenzap 2021-02 Yes [id number] 5mg Take 1 Univers rine 5 mg 0-28 [id number] tablet by ity of tablet 00:00: mouth 3 (three) Medical times Branch daily as needed for Muscle Spasms. cyclobenzap 2021-02 Yes [id number] 5mg Take 1 Univers rine 5 mg 0-28 [id number] tablet by ity of tablet 00:00: mouth 3 (three) Medical times Branch daily as needed for Muscle Spasms. cyclobenzap 2021-02 Yes [id number] 5mg Take 1 Univers rine 5 mg 0-28 [id number] tablet by ity of tablet 00:00: mouth 3 [place] 00 (three) Medical times Branch daily as needed for Muscle Spasms. cyclobenzap 2021-02 Yes [id number] 5mg Take 1 Univers rine 5 mg 0-28 [id number] tablet by ity of tablet 00:00: mouth 3 [place] 00 (three) Medical times Branch daily as needed for Muscle Spasms. cyclobenzap 2021-02 Yes [id number] 5mg Take 1 Univers rine 5 mg 0-28 [id number] tablet by ity of tablet 00:00: mouth [...] by mouth ity of 11:02: in the [place] [address] morning. Medical Branch buPROPion 2021-0 Yes 150mg Take 150 Uni vers XL 150 mg 9-09 mg by ity of 24 hr 11:02: mouth in [place] tablet 50 the Medical morning. Branch memantine 5 2021-0 Yes 5mg Take 5 mg U nivers mg tablet 9-09 by mouth ity of 11:02: in the [place] [address] morning. Medical Branch buPROPion 2021-0 Yes 150mg Take 150 Uni vers XL 150 mg 9-09 mg by ity of 24 hr 11:02: mouth in [place] tablet 50 the Medical morning. Branch memantine 5 2021-0 Yes 5mg Take 5 mg U nivers mg tablet 9-09 by mouth ity of 11:02: in the [place] [address] morning. Medical Branch buPROPion 2021-0 Yes 150mg Take 150 Uni vers XL 150 mg 9-09 mg by ity of 24 hr 11:02: mouth in [place] tablet 50 the Medical morning. Branch memantine 5 2021-0 Yes 5mg Take 5 mg U nivers mg tablet 9-09 by mouth ity of 11:02: in the [place] [address] morning. Medical Branch buPROPion 2021-0 Yes 150mg Take 150 Uni vers XL 150 mg 9-09 mg by ity of 24 hr 11:02: mouth in [place] tablet 50 the Medical morning. Branch memantine 5 2021-0 Yes 5mg Take 5 mg U nivers mg tablet 9-09 by mouth ity of 11:02: in the [place] 50 morning. Medical Branch buPROPion 2021-0 Yes 150mg Take 150 Uni vers XL 150 mg 9-09 mg by ity of 24 hr 11:02: mouth in [place] tablet 50 the Medical morning. Branch memantine 5 2021-0 Yes 5mg Take 5 mg U nivers mg tablet 9-09 by mouth ity of 11:02: in the [place] 50 morning. Medical Branch buPROPion 2021-0 Yes [...] by mouth ity of 11:02: in the [place] 50 morning. Medical Branch buPROPion 2021-0 Yes 150mg Take 150 Uni vers XL 150 mg 9-09 mg by ity of 24 hr 11:02: mouth in [place] tablet 50 the Medical morning. Branch memantine 5 2021-0 Yes 5mg Take 5 mg U nivers mg tablet 9-09 by mouth ity of 11:02: in the [place] 50 morning. Medical Branch buPROPion 2021-0 Yes 150mg Take 150 Uni vers XL 150 mg 9-09 mg by ity of 24 hr 11:02: mouth in [place] tablet 50 the Medical morning. Branch memantine 5 2021-0 Yes 5mg Take 5 mg U nivers mg tablet 9-09 by mouth ity of 11:02: in the [place] 50 morning. Medical Branch buPROPion 2021-0 Yes [...] by mouth ity of 11:02: in the [place] 50 morning. Medical Branch carvediloL 2021-0 Yes [...] ity of 20 mg 08:56: in the [facility] 02 morning. Medical Branch fenofibrate 2021-0 Yes [...] mouth ity of hr capsule 08:56: daily. [place] [address] Medical Branch doxepin 50 2021-0 Yes 50mg [...] by ity of tablet 08:56: mouth at [place] 02 bedtime as Medical needed for Branch Insomnia. atorvastati 2021-0 Yes 80mg Take 80 mg Univers n calcium 9-09 by mouth ity of (ATOR[place] 02 Medical Branch carvediloL 2021-0 Yes 12.5mg Take 12.5 Univers 12.5 mg 9-09 mg by ity of tablet 08:56: mouth in [place] the Medical morning Branch and 12.5 mg in the evening. Take with meals. ARIPiprazol 2021-0 Yes 2.5mg Take 2.5 U nivers e 5 mg 9-09 mg by ity of tablet 08:56: mouth [place] every Medical evening. Branch clopidogreL 2021-0 Yes 75mg Take 75 mg Univers 75 mg 9-09 by mouth ity of tablet 08:56: in the [place] morning. Medical Branch escitalopra 2021-0 Yes 20mg Take 20 mg Univers m oxalate 909 by mouth ity of 20 mg 08:56: in the [facility] morning. Medical Branch fenofibrate 2021-0 Yes 145mg Take 145 U nivers 145 mg 9-09 mg by ity of tablet 08:56: mouth in [place] 02 the Medical morning. Branch levothyroxi 2021-0 Yes 25ug Take 25 Uni vers ne 25 mcg 9-09 mcg by ity of tablet 08:56: mouth [place] every Medical morning. Branch donepeziL 2021-0 Yes 10mg Take 10 mg Un salbador 10 mg 9-09 by mouth ity of tablet 08:56: every [place] morning. Medical Branch omeprazole 2021-0 Yes 20mg Take 20 mg U nivers 20 mg 9-09 by mouth ity of capsule 08:56: in the [place] morning. Medical Branch finasteride 2021-0 Yes 5mg Take 5 mg U nivers 5 mg tablet 909 by mouth ity of 08:56: every [place] morning. Medical Branch tamsulosin 2021-0 Yes Take by Univ ers 0.4 mg 24 9-09 mouth ity of hr capsule 08:56: daily. [place] Medical Branch doxepin 50 2021-0 Yes 50mg Take 50 mg U nivers mg capsule 09 by mouth ity o f 08:56: every [place] evening. Medical Branch Magnesium 2021-0 Yes 1{tbl} Take 1 Univ ers Oxide 500 9-09 tablet by ity o f mg Tab 08:56: mouth [place] every Medical evening. Branch aspirin 2021-0 Yes 325mg Take 325 Unive rs E.C. 325 mg 9-09 mg by ity of EC tablet 08:56: mouth [place] every Medical evening. Branch clonazePAM 2021-0 Yes .5mg Take 0.5 Uni vers 0.5 mg 9-09 mg by ity of tablet 08:56: mouth at [place] [address] bedtime as Medical needed for Branch Insomnia. atorvastati 2021-0 Yes 80mg Take 80 mg Univers n calcium 909 by mouth ity of (ATORVASTAT [place] 02 Medical Branch carvediloL 2021-0 Yes 12.5mg Take 12.5 Univers 12.5 mg 9-09 mg by ity of tablet 08:56: mouth in [place] the Medical morning Branch and 12.5 mg in the evening. Take with meals. ARIPiprazol 2021-0 Yes 2.5mg Take 2.5 U nivers e 5 mg 9-09 mg by ity of tablet 08:56: mouth [place] [address] every Medical evening. Branch clopidogreL 2021-0 Yes 75mg Take 75 mg Univers 75 mg 9-09 by mouth ity of tablet 08:56: in the [place] morning. Medical Branch escitalopra 2021-0 Yes 20mg Take 20 mg Univers m oxalate 909 by mouth ity of 20 mg 08:56: in the [facility] morning. Medical Branch fenofibrate 2021-0 Yes 145mg Take 145 U nivers 145 mg 9-09 mg by ity of tablet 08:56: mouth in [place] the Medical morning. Branch levothyroxi 2021-0 Yes 25ug Take 25 Uni vers ne 25 mcg 9-09 mcg by ity of tablet 08:56: mouth [place] [address] every Medical morning. Branch donepeziL 2021-0 Yes [...] by ity of tablet 08:56: mouth at [place] bedtime as Medical needed for Branch Insomnia. [...] ity of 20 mg 08:56: in the [facility] morning. Medical Branch fenofibrate 0 Yes 145mg Take 145 U nivers 145 mg 9-09 mg by ity of tablet 08:56: mouth in [place] 02 the Medical morning. Branch levothyroxi 2021-0 Yes 25ug Take 25 Uni vers ne 25 mcg 9-09 mcg by ity of tablet 08:56: mouth [place] every Medical morning. Branch donepeziL 0 Yes 10mg Take 10 mg Un salbador 10 mg 909 by mouth ity of tablet 08:56: every [place] morning. Medical Branch omeprazole 2021-0 Yes 20mg [...] by mouth ity o f 08:56: every [place] evening. Medical Branch Magnesium 0 Yes 1{tbl} Take 1 Univ ers Oxide 500 -09 tablet by ity o f mg Tab 08:56: mouth [place] every Medical evening. Branch aspirin 2021-0 Yes 325mg Take 325 Unive rs E.C. 325 mg 9-09 mg by ity of EC tablet 08:56: mouth [place] every Medical evening. Branch clonazePAM 2021-0 Yes .5mg Take 0.5 Uni vers 0.5 mg 9-09 mg by ity of tablet 08:56: mouth at [place] bedtime as Medical needed for Branch Insomnia. [...] ity of 20 mg 08:56: in the [facility] morning. Medical Branch fenofibrate 2021-0 Yes 145mg Take 145 U nivers 145 mg 9-09 mg by ity of tablet 08:56: mouth in [place] the Medical morning. Branch levothyroxi 2021-0 Yes 25ug Take 25 Uni vers ne 25 mcg 9-09 mcg by ity of tablet 08:56: mouth [place] every Medical morning. Branch donepeziL 2021-0 Yes 10mg Take 10 mg Un salbador 10 mg 9-09 by mouth ity of tablet 08:56: every [place] morning. Medical Branch omeprazole 2021-0 Yes 20mg Take 20 mg U nivers 20 mg 9-09 by mouth ity of capsule 08:56: in the morning. Medical Branch finasteride 2021-0 Yes 5mg Take 5 mg U nivers 5 mg tablet 909 by mouth ity of 08:56: every [place] morning. Medical Branch tamsulosin 2021-0 Yes Take by Univ ers 0.4 mg 24 9-09 mouth ity of hr capsule 08:56: daily. [place] Medical Branch doxepin 50 2021-0 Yes 50mg Take 50 mg U nivers mg capsule 909 by mouth ity o f 08:56: every [place] evening. Medical Branch Magnesium 2021-0 Yes 1{tbl} Take 1 Univ ers Oxide 500 9-09 tablet by ity o f mg Tab 08:56: mouth [place] 02 every Medical evening. Branch aspirin 2021-0 Yes 325mg Take 325 Unive rs E.C. 325 mg 9-09 mg by ity of EC tablet 08:56: mouth [place] 02 every Medical evening. Branch clonazePAM 2021-0 Yes .5mg Take 0.5 Uni vers 0.5 mg 9-09 mg by ity of tablet 08:56: mouth at [place] bedtime as Medical needed for Branch Insomnia. atorvastati 2021-0 Yes 80mg Take 80 mg Univers n calcium 9-09 by mouth ity of (ATORVASTAT [place] 02 Medical Branch carvediloL 2021-0 Yes 12.5mg Take 12.5 Univers 12.5 mg 9-09 mg by ity of tablet 08:56: mouth in [place] 02 the Medical morning Branch and 12.5 mg in the evening. Take with meals. ARIPiprazol 2021-0 Yes 2.5mg Take 2.5 U nivers e 5 mg 9-09 mg by ity of tablet 08:56: mouth [place] every Medical evening. Branch clopidogreL 2021-0 Yes 75mg Take 75 mg Univers 75 mg 909 by mouth ity of tablet 08:56: in the [place] morning. Medical Branch escitalopra 2021-0 Yes 20mg Take 20 mg Univers m oxalate 909 by mouth ity of 20 mg 08:56: in the [facility] morning. Medical Branch fenofibrate 2021-0 Yes 145mg Take 145 U nivers 145 mg 9-09 mg by ity of tablet 08:56: mouth in [place] 02 the Medical morning. Branch levothyroxi 2021-0 Yes 25ug Take 25 Uni vers ne 25 mcg 9-09 mcg by ity of tablet 08:56: mouth [place] every Medical morning. Branch donepeziL 2021-0 Yes [...] mouth ity of hr capsule 08:56: daily. [place] [address] Medical Branch doxepin 50 0 Yes 50mg Take 50 mg U nivers mg capsule 9-09 by mouth ity o f 08:56: every [place] evening. Medical Branch Magnesium 0 Yes 1{tbl} Take 1 Univ ers Oxide 500 9-09 tablet by ity o f mg Tab 08:56: mouth [place] 02 every Medical evening. Branch aspirin 0 Yes 325mg Take 325 Unive rs E.C. 325 mg 9-09 mg by ity of EC tablet 08:56: mouth [place] 02 every Medical evening. Branch clonazePAM 0 Yes .5mg Take 0.5 Uni vers 0.5 mg 9-09 mg by ity of tablet 08:56: mouth at [place] 02 bedtime as Medical needed for Branch Insomnia. atorvastati 0 Yes 80mg Take 80 mg Univers n calcium 909 by mouth ity of (ATORVASTAT 08:56: [place] 02 Medical Branch carvediloL 0 Yes 12.5mg Take 12.5 Univers 12.5 mg 9-09 mg by ity of tablet 08:56: mouth in [place] the Medical morning Branch and 12.5 mg in the evening. Take with meals. ARIPiprazol 0 Yes 2.5mg Take 2.5 U nivers e 5 mg 9-09 mg by ity of tablet 08:56: mouth [place] every Medical evening. Branch clopidogreL 0 Yes 75mg Take 75 mg Univers 75 mg 909 by mouth ity of tablet 08:56: in the [place] morning. Medical Branch escitalopra 0 Yes 20mg Take 20 mg Univers m oxalate 909 by mouth ity of 20 mg 08:56: in the [facility] morning. Medical Branch fenofibrate 0 Yes 145mg Take 145 U nivers 145 mg 9-09 mg by ity of tablet 08:56: mouth in [place] the Medical morning. Branch levothyroxi 0 Yes 25ug Take 25 Uni vers ne 25 mcg 9-09 mcg by ity of tablet 08:56: mouth [place] 02 every Medical morning. Branch donepeziL 0 Yes 10mg Take 10 mg Un salbador 10 mg 9-09 by mouth ity of tablet 08:56: every [place] morning. Medical Branch omeprazole 2021-0 Yes 20mg [...] by ity of EC tablet 08:56: mouth [place] 02 every Medical evening. Branch clonazePAM 2021-0 Yes .5mg Take 0.5 Uni vers 0.5 mg 9-09 mg by ity of tablet 08:56: mouth at [place] 02 bedtime as Medical needed for Branch [...] mg by ity of tablet 08:56: mouth [place] 02 every Medical evening. Branch clopidogreL 2021-0 [...] mouth ity of hr capsule 08:56: daily. [place] 02 Medical Branch doxepin 50 2021-0 Yes [...] of 20 mg 08:56: in the [place] [facility] morning. Medical Branch fenofibrate [...] by mouth ity of tablet 08:56: every [place] morning. Medical Branch omeprazole 2021-0 Yes 20mg [...] by ity of tablet 08:56: mouth at [place] [address] bedtime as Medical needed for Branch Insomnia. atorvastati 2021-0 Yes 80mg Take 80 mg Univers n calcium 9-09 by mouth ity of (ATORVASTAT 08:56: [place] 02 Medical Branch carvediloL 2021-0 Yes 12.5mg Take 12.5 Univers 12.5 mg 9-09 mg by ity of tablet 08:56: mouth in [place] 02 the Medical morning Branch and 12.5 mg in the evening. Take with meals. ARIPiprazol 2021-0 Yes 2.5mg Take 2.5 U nivers e 5 mg 9-09 mg by ity of tablet 08:56: mouth [place] every Medical evening. Branch clopidogreL 2021-0 Yes 75mg Take 75 mg Univers 75 mg 9-09 by mouth ity of tablet 08:56: in the [place] morning. Medical Branch escitalopra 2021-0 Yes 20mg Take 20 mg Univers m oxalate 909 by mouth ity of 20 mg 08:56: in the [facility] morning. Medical Branch fenofibrate 2021-0 Yes 145mg Take 145 U nivers 145 mg 9-09 mg by ity of tablet 08:56: mouth in [place] the Medical morning. Branch levothyroxi 2021-0 Yes 25ug Take 25 Uni vers ne 25 mcg 9-09 mcg by ity of tablet 08:56: mouth [place] every Medical morning. Branch donepeziL 2021-0 Yes [...] mouth ity of hr capsule 08:56: daily. [place] [address] Medical Branch doxepin 50 2021-0 Yes 50mg Take 50 mg U nivers mg capsule 09 by mouth ity o f 08:56: every [place] 02 evening. Medical Branch Magnesium 2021-0 Yes 1{tbl} Take 1 Univ ers Oxide 500 9-09 tablet by ity o f mg Tab 08:56: mouth [place] 02 every Medical evening. Branch aspirin 2021-0 Yes 325mg Take 325 Unive rs E.C. 325 mg 9-09 mg by ity of EC tablet 08:56: mouth [place] 02 every Medical evening. Branch clonazePAM 2021-0 Yes .5mg Take 0.5 Uni vers 0.5 mg 9-09 mg by ity of tablet 08:56: mouth at [place] [address] bedtime as Medical needed for Branch Insomnia. atorvastati 2021-0 Yes 80mg Take 80 mg Univers n calcium 9-09 by mouth ity of (ATORVASTAT 08:56: [place] 02 Medical Branch carvediloL 2021-0 Yes 12.5mg Take 12.5 Univers 12.5 mg 9-09 mg by ity of tablet 08:56: mouth in [place] 02 the Medical morning Branch and 12.5 mg in the evening. Take with meals. ARIPiprazol 2021-0 Yes 2.5mg Take 2.5 U nivers e 5 mg 9-09 mg by ity of tablet 08:56: mouth [place] [address] every Medical evening. Branch clopidogreL 2021-0 Yes 75mg Take 75 mg Univers 75 mg 9-09 by mouth ity of tablet 08:56: in the [place] morning. Medical Branch escitalopra 2021-0 Yes 20mg Take 20 mg Univers m oxalate 909 by mouth ity of 20 mg 08:56: in the [facility] morning. Medical Branch fenofibrate 2021-0 Yes 145mg Take 145 U nivers 145 mg 9-09 mg by ity of tablet 08:56: mouth in [place] 02 the Medical morning. Branch levothyroxi 2021-0 Yes 25ug Take 25 Uni vers ne 25 mcg 9-09 mcg by ity of tablet 08:56: mouth [place] [address] every Medical morning. Branch donepeziL 2021-0 Yes 10mg Take 10 mg Un salbador 10 mg 9-09 by mouth ity of tablet 08:56: every [place] [address] morning. Medical Branch omeprazole 2021-0 Yes 20mg Take 20 mg U nivers 20 mg 9-09 by mouth ity of capsule 08:56: in the [place] morning. Medical Branch finasteride 2021-0 Yes 5mg Take 5 mg U nivers 5 mg tablet 909 by mouth ity of 08:56: every [place] morning. Medical Branch tamsulosin 2021-0 Yes Take by Univ ers 0.4 mg 24 9-09 mouth ity of hr capsule 08:56: daily. [place] Medical Branch doxepin 50 2021-0 Yes 50mg Take 50 mg U nivers mg capsule 09 by mouth ity o f 08:56: every [place] evening. Medical Branch Magnesium 2021-0 Yes 1{tbl} Take 1 Univ ers Oxide 500 9-09 tablet by ity o f mg Tab 08:56: mouth [place] every Medical evening. Branch aspirin 2021-0 Yes 325mg Take 325 Unive rs E.C. 325 mg 9-09 mg by ity of EC tablet 08:56: mouth [place] every Medical evening. Branch clonazePAM 2021-0 Yes .5mg Take 0.5 Uni vers 0.5 mg 9-09 mg by ity of tablet 08:56: mouth at [place] bedtime as Medical needed for Branch Insomnia. atorvastati 0 Yes 80mg Take 80 mg Univers n calcium 09 by mouth ity of (ATORVASTAT 08:56: [place] 02 Medical Branch carvediloL 2021-0 Yes 12.5mg Take 12.5 Univers 12.5 mg 9-09 mg by ity of tablet 08:56: mouth in [place] the Medical morning Branch and 12.5 mg in the evening. Take with meals. ARIPiprazol 2021-0 Yes 2.5mg Take 2.5 U nivers e 5 mg 9-09 mg by ity of tablet 08:56: mouth [place] every Medical evening. Branch clopidogreL 2021-0 Yes 75mg Take 75 mg Univers 75 mg 9-09 by mouth ity of tablet 08:56: in the [place] morning. Medical Branch escitalopra 2021-0 Yes 20mg Take 20 mg Univers m oxalate 909 by mouth ity of 20 mg 08:56: in the [facility] morning. Medical Branch fenofibrate 2021-0 Yes 145mg Take 145 U nivers 145 mg 9-09 mg by ity of tablet 08:56: mouth in [place] the Medical morning. Branch levothyroxi 0 Yes 25ug Take 25 Uni vers ne 25 mcg 9-09 mcg by ity of tablet 08:56: mouth every Medical morning. Branch donepeziL 2021-0 Yes 10mg Take 10 mg Un salbador 10 mg 9-09 by mouth ity of tablet 08:56: every [place] morning. Medical Branch omeprazole 2021-0 Yes 20mg [...] by mouth ity o f 08:56: every [place] evening. Medical Branch Magnesium 2021-0 Yes 1{tbl} Take 1 Univ ers Oxide 500 9-09 tablet by ity o f mg Tab 08:56: mouth every Medical evening. Branch aspirin 2021-0 Yes 325mg Take 325 Unive rs E.C. 325 mg 9-09 mg by ity of EC tablet 08:56: mouth [place] every Medical evening. Branch clonazePAM 0 Yes .5mg Take 0.5 Uni vers 0.5 mg 9-09 mg by ity of tablet 08:56: mouth at [place] [address] bedtime as Medical needed for Branch Insomnia. atorvastati 0 Yes 80mg Take 80 mg Univers n calcium 9-09 by mouth ity of (ATORVASTAT 08:56: [place] 02 Medical Branch carvediloL 2021-0 Yes 12.5mg Take 12.5 Univers 12.5 mg 9-09 mg by ity of tablet 08:56: mouth in [place] 02 the Medical morning Branch and 12.5 [...] by ity of tablet 08:56: mouth at [place] bedtime as Medical needed for Branch Insomnia. atorvastati 2021-0 Yes 80mg Take 80 mg Univers n calcium 9-09 by mouth ity of (ATORVASTAT 08:56: [place] 02 Medical Branch cefdinir 2021- No [id number] 300mg Take 1 U nivers 300 mg [...] Indication s: acute pain cefdinir 2021- No [id number] 300mg Take 1 U nivers 300 mg [...] Indication s: acute pain hyoscyamine 2021- No [id number] .125mg Take 1 Univers 0.125 mg 11-05 tablet by ity o f tablet 00:00: 04:59 mouth 4 [place] 00 :00 (four) Medical times Branch daily as needed for Pain (scale 7-10) for up to 5 days. hyoscyamine 2021- No [id number] .125mg Take 1 Univers 0.125 mg 11-05 [...] by mouth ity of tablet 18:07: every [place] [address] morning. Medical Branch ARIPiprazol 2021-0 Yes 2.5mg Take 2.5 U nivers e (ABILIFY) 9-07 mg by ity of 5 mg tablet 18:07: mouth [place] [address] every Medical evening. Branch clopidogreL 2021-0 Yes 75mg Take 75 mg Univers 75 mg 11-03 by mouth ity of tablet 18:07: in the [place] [address] morning. Medical Branch escitalopra 2021-0 Yes 20mg Take 20 mg Univers m oxalate 11-03 by mouth ity of 20 mg 18:07: in the [place] [address] morning. Medical Branch fenofibrate 2021-0 Yes 145mg Take 145 U nivers 145 mg 9-07 mg by ity of tablet 18:07: mouth in [place] [address] the Medical morning. Branch levothyroxi 2021-0 Yes 25ug Take 25 Uni vers ne 25 mcg 11-03 mcg by ity of tablet 18:07: mouth [place] [address] every [facility] morning. Branch donepeziL 2021-0 Yes 10mg Take 10 mg Un salbador 10 mg 07 by mouth ity of tablet 18:07: every [place] [address] morning. Medical Branch omeprazole 2021-0 Yes 20mg Take 20 mg U nivers 20 mg 07 by mouth ity of capsule 18:07: in the [place] [address] morning. Medical Branch finasteride 2021-0 Yes 5mg Take 5 mg U nivers 5 mg tablet 07 by mouth ity of 18:07: every [place] [address] morning. Medical Branch tamsulosin 2021-0 Yes Take by Univ ers 0.4 mg 24 11-03 mouth ity of hr capsule 18:07: daily. [place] [address] Medical Branch doxepin 50 2021-0 Yes 50mg Take 50 mg U nivers mg capsule 07 by mouth ity o f 18:07: every [place] [address] evening. Medical Branch Magnesium 2021-0 Yes 1{tbl} Take 1 Univ ers Oxide 500 11-03 tablet by ity o f mg Tab 18:07: mouth [place] [address] every Medical evening. Branch aspirin 2021-0 Yes 325mg Take 325 Unive rs E.C. 325 mg 9-07 mg by ity of EC tablet 18:07: mouth [place] [address] every Medical evening. Branch clonazePAM 2021-0 Yes .5mg Take 0.5 Uni vers 0.5 mg 9-07 mg by ity of tablet 18:07: mouth at [place] [address] bedtime as Medical needed for Branch Insomnia. atorvastati 2021-0 Yes 80mg Take 80 mg Univers n calcium 9-07 by mouth ity of (ATORVASTAT 18:[place]: [place] 05 Medical Branch ARIPiprazol 2021-0 Yes 5mg Take 5 mg U nivers e 5 mg 9-07 by mouth ity of tablet 18:07: every [place] [address] morning. Medical Branch carvediloL 2021-0 Yes 12.5mg Take 12.5 Univers 12.5 mg 9-07 mg by ity of tablet 18:07: mouth in [place] [address] the Medical morning Branch and 12.5 mg in the evening. Take with meals. ARIPiprazol 2021-0 Yes 5mg Take 5 mg U nivers e 5 mg 9-07 by mouth ity of tablet 18:07: every [place] [address] morning. Medical Branch ARIPiprazol 2021-0 Yes 5mg Take 5 mg U nivers e 5 mg 9-07 by mouth ity of tablet 18:07: every [place] [address] morning. Medical Branch ARIPiprazol 2021-0 Yes 2.5mg Take 2.5 U nivers e (ABILIFY) 9-07 mg by ity of 5 mg tablet 18:07: mouth [place] [address] every Medical evening. Branch clopidogreL 2021-0 Yes 75mg Take 75 mg Univers 75 mg 07 by mouth ity of tablet 18:07: in the [place] [address] morning. Medical Branch escitalopra 2021-0 Yes 20mg Take 20 mg Univers m oxalate 907 by mouth ity of 20 mg 18:07: in the [facility] 05 morning. Medical Branch ARIPiprazol 2021-0 Yes 5mg Take 5 mg U nivers e 5 mg 9-07 by mouth ity of tablet 18:07: every [place] [address] morning. Medical Branch fenofibrate 2021-0 Yes 145mg Take 145 U nivers 145 mg 9-07 mg by ity of tablet 18:07: mouth in [place] [address] the Medical morning. Branch levothyroxi 2021-0 Yes 25ug Take 25 Uni vers ne 25 mcg 9- mcg by ity of tablet 18:07: mouth [place] [address] every Medical morning. Branch ARIPiprazol 2021-0 Yes 5mg Take 5 mg U nivers e 5 mg 907 by mouth ity of tablet 18:07: every [place] [address] morning. Medical Branch donepeziL 2021-0 Yes 10mg Take 10 mg Un salbador 10 mg 907 by mouth ity of tablet 18:07: every [place] [address] morning. Medical Branch omeprazole 2021-0 Yes 20mg Take 20 mg U nivers 20 mg 907 by mouth ity of capsule 18:07: in the [place] [address] morning. Medical Branch finasteride 2021-0 Yes 5mg Take 5 mg U nivers 5 mg tablet 07 by mouth ity of 18:07: every [place] [address] morning. Medical Branch ARIPiprazol 2021-0 Yes 5mg Take 5 mg U nivers e 5 mg 907 by mouth ity of tablet 18:07: every [place] [address] morning. Medical Branch tamsulosin 0 Yes Take by Univ ers 0.4 mg 24 907 mouth ity of hr capsule 18:07: daily. [place] [address] Medical Branch doxepin 50 2021-0 Yes 50mg Take 50 mg U nivers mg capsule 07 by mouth ity o f 18:07: every [place] [address] evening. Medical Branch Magnesium 2021-0 Yes 1{tbl} Take 1 Univ ers Oxide 500 9-07 tablet by ity o f mg Tab 18:07: mouth [place] [address] every Medical evening. Branch ARIPiprazol 2021-0 Yes 5mg Take 5 mg U nivers e 5 mg 9-07 by mouth ity of tablet 18:07: every [place] [address] morning. Medical Branch aspirin 2021-0 Yes 325mg Take 325 Unive rs E.C. 325 mg 9-07 mg by ity of EC tablet 18:07: mouth [place] [address] every Medical evening. Branch clonazePAM 2021-0 Yes .5mg Take 0.5 Uni vers 0.5 mg 9-07 mg by ity of tablet 18:07: mouth at [place] [address] bedtime as Medical needed for Branch Insomnia. ARIPiprazol 2021-0 Yes 5mg Take 5 mg U nivers e 5 mg 9-07 by mouth ity of tablet 18:07: every [place] [address] morning. Medical Branch atorvastati 2021-0 Yes 80mg Take 80 mg Univers n calcium 9-07 by mouth ity of (ATORVASTAT 18[place] 05 Medical Branch ARIPiprazol 2-0 Yes 5mg Take 5 mg U nivers e 5 mg 9-07 by mouth ity of tablet 18:07: every [place] [address] morning. Medical Branch ARIPiprazol 2021-0 Yes 5mg Take 5 mg U nivers e 5 mg 9-07 by mouth ity of tablet 18:07: every [place] [address] morning. Medical Branch ARIPiprazol 2021-0 Yes 5mg Take 5 mg U nivers e 5 mg 9-07 by mouth ity of tablet 18:07: every [place] 05 morning. Medical Branch ARIPiprazol 2021-0 Yes 5mg Take 5 mg U nivers e 5 mg 9-07 by mouth ity of tablet 18:07: every [place] [address] morning. Medical Branch ARIPiprazol 2021-0 Yes 5mg Take 5 mg U nivers e 5 mg 9-07 by mouth ity of tablet 18:07: every [place] [address] morning. Medical Branch ARIPiprazol 2021-0 Yes 5mg Take 5 mg U nivers e 5 mg 9-07 by mouth ity of tablet 18:07: every [place] [address] morning. Medical Branch cyclobenzap 2-0 Yes [id number] 5mg Take 1 Univers rine 5 mg 9- [id number] tablet by ity of tablet 00:00: mouth 3 (three) Medical times Branch daily as needed for Muscle Spasms. cyclobenzap 2-0 Yes [id number] 5mg Take 1 Univers rine 5 mg 9- 120113 tablet by ity of tablet 00:00: mouth 3 00 (three) Medical times Branch daily as needed for Muscle Spasms. cyclobenzap 2022-0 Yes [id number] 5mg Take 1 Univers rine 5 mg 9-07 [id number] tablet by ity of tablet 00:00: mouth 3 00 (three) Medical times Branch daily as needed for Muscle Spasms. cyclobenzap 2-0 Yes [id number] 5mg Take 1 Univers rine 5 mg 9-07 [id number] tablet by ity of tablet 00:00: mouth 3 [place] 00 (three) Medical times Branch daily as needed for Muscle Spasms. cyclobenzap 2021-0 Yes [id number] 5mg Take 1 Univers rine 5 mg 9-07 [id number] tablet by ity of tablet 00:00: mouth 3 [place] 00 (three) Medical times Branch daily as needed for Muscle Spasms. cyclobenzap 2021-0 Yes [id number] 5mg Take 1 Univers rine 5 mg 9-07 [id number] tablet by ity of tablet 00:00: mouth 3 [place] 00 (three) Medical times Branch daily as needed for Muscle Spasms. cyclobenzap 2021-0 Yes [id number] 5mg Take 1 Univers rine 5 mg 9-07 [id number] tablet by ity of tablet 00:00: mouth 3 [place] 00 (three) Medical times Branch daily as needed for Muscle Spasms. cyclobenzap 0 Yes [id number] 5mg Take 1 Univers rine 5 mg 9-07 [id number] tablet by ity of tablet 00:00: mouth 3 [place] 00 (three) Medical times Branch daily as needed for Muscle Spasms. cyclobenzap 2021-0 Yes [id number] 5mg Take 1 Univers rine 5 mg 9-07 [id number] tablet by ity of tablet 00:00: mouth 3 [place] 00 (three) Medical times Branch daily as needed for Muscle Spasms. cyclobenzap 2021- No [id number] 5mg Take 1 Univers rine 5 mg 9-07 10-28 [id number] tablet by it y of tablet 00:00: [...] 00 Starting Medi jessica tablet 1 on [facility] tablet 11/02/21 at 1645, Until Discontinu ed, Routine, Pain (scale 4-6) HYDROcodone 2021-0 Yes 1{tbl} 1 tablet, Univers -acetaminop 11-02 Oral, ity of hen (NORCO) 21:44: Q4HPRN, [place] as 10-325 mg 01 Starting Medica l tablet 1 on [facility] tablet 11/02/21 at 1644, Until Discontinu ed, Routine, Pain (scale 7-10) aspirin 2021-0 Yes 81mg 81 mg, Univers chewable 11-02 Oral, ity of tablet 81 14:00: DAILY, [place] mg 00 First dose Medical on [facility] 11/02/21 at 0900, Until Discontinu ed, Routine docusate 2021-0 Yes 100mg 100 mg, Unive rs (COLACE) 11-02 Oral, ity of capsule 100 14:00: [place]ILY, [place] 00 First dose Medical on [facility] 11/02/21 at 0900, Until Discontinu ed, Routine tamsulosin 2021-0 Yes .4mg 0.4 mg, Univ ers (FLOMAX) 11-02 Oral, ity of capsule 0.4 14:00: DAILY, [place] 00 First dose Medical on [facility] 11/02/21 at 0900, Until Discontinu ed, Routine omeprazole 2021-0 Yes 20mg 20 mg, Unive rs (PRILOSEC) 11-02 Oral, ity of capsule 20 14:00: DAILY, [place] mg 00 First dose Medical on [facility] 11/02/21 at 0900, Until Discontinu ed, Routine magnesium 2021-0 Yes 400mg 400 mg, Univ ers oxide 11-02 Oral, ity of (MAG-OX 14:00: DAILY, [place] 400) tablet 00 First dose Me dical 400 mg on [facility] 11/02/21 at 0900, Until Discontinu ed finasteride 2021-0 Yes 5mg 5 mg, Unive rs (PROSCAR) 11-02 Oral, QAM, ity of tablet 5 mg 14:00: First dose [place] 00 on [facility] 11/02/21 at Branch 0900, Until Discontinu ed, Routine fenofibrate 0 Yes 134mg 134 mg, Un salbador micronized 11-02 Oral, ity of (LOFIBRA) 14:00: DAILY, [place] capsule 134 00 First dose Me dical mg on [facility] 11/02/21 at 0900, Until Discontinu ed escitalopra 0 Yes 20mg 20 mg, Univ ers m oxalate 11-02 Oral, ity of (LEXAPRO) 14:00: DAILY, [place] tablet 20 00 First dose Medi jessica mg on [facility] 11/02/21 at 0900, Until Discontinu ed, Routine donepeziL Yes 10mg 10 mg, Univer s (ARICEPT) 11-02 Oral, QAM, ity of tablet 10 14:00: [place] mg 00 on [facility] 11/02/21 at Branch 0900, Until Discontinu ed, Routine clopidogreL 2021-0 Yes 75mg 75 mg, Univ ers (PLAVIX) 75 11-02 Oral, ity of mg tablet 14:00: DAILY, [place] 75 mg 00 First dose Medical on [facility] 11/02/21 at 0900, Until Discontinu ed, Routine ARIPiprazol 0 Yes 5mg 5 mg, Unive rs e (ABILIFY) 11-02 Oral, QAM, it y of tablet 5 mg 14:00: First dose [place] 00 on [facility] 11/02/21 at Branch 0900, Until Discontinu ed, Routine levothyroxi 2021-0 Yes 25ug 25 mcg, Uni vers ne 11-02 Oral, ity of (SYNTHROID) 11:00: QAM-0600, [place] tablet 25 00 First dose Medi jessica mcg on [facility] [place] 11/02/21 at 0600, Until Discontinu ed, Routine atorvastati Yes 40mg 40 mg, Univ ers n (LIPITOR) 11-02 Oral, QHS, it y of tablet 40 02:00: [place] 00 on [facility] 11/01/21 at Branch 2100, Until Discontinu ed, Routine cyclobenzap 2021- No 5mg 5 mg, Univ ers rine 11-02 09-09 Oral, TID, ity of (FLEXERIL) 01:00: 00:59 9 doses, [place] tablet 5 mg 00 :00 First dose Me dical on [facility] [place] 11/01/21 at 2000, Last dose on [place]ian [...] s mg 00 First dose Medical on [facility] 11/01/21 at 1700, Until Discontinu ed, Routine ARIPiprazol Yes 2.5mg 2.5 mg, Un salbador e (ABILIFY) 11-01 Oral, QPM, it y of tablet 2.5 22:00: First dose [place] mg 00 on [facility] 11/01/21 at Branch 1700, Until Discontinu ed, Routine ondansetron Yes 4mg 4 mg, Slow Univers (ZOFRAN 11-01 IV Push, ity of (PF)) 21:01: Q6HPRN, [place] injection 4 00 Starting Medi jessica mg on [facility] 11/01/21 at 1601, Until Discontinu ed, Routine, Nausea and Vomiting (N/V) HYDROcodone 2021- No 1{tbl} 1 tablet, Univers -acetaminop 11-01 Oral, ity of hen (NORCO 21:00: 21:45 Q6HPRN, [place] 5) 5-325 mg 47 :04 Starting Medi jessica tablet 1 on [facility] [place] tablet 11/01/21 at 1600, Until Mon11/02/21 at 1645, Routine, Pain (scale 4-6) acetaminoph Yes 650mg 650 mg, Un salbador en 11-01 Oral, ity of (TYLENOL) 21:00: Q6HPRN, [place] tablet 650 38 Starting Medic al mg [...] 11-01 medication it y of 16:04: s [place] 18 [facility] Branch morpHINE (4 No 4mg 4 mg, [...] 0930 t} MG 00:00: 00:00 00 :00 MULTIVIT-NY 2018-0 Yes Take by Met hodi NERALS/FERR [...] 25 12 every l mcg tablet morning. MULTIVIT-NY Yes Take by Met hodi NERALS/FERR 9-10 [...] 25 12 every l mcg tablet morning. MULTIVIT-NY Yes Take by Met hodi NERALS/FERR 9-10 [...] 25 12 every l mcg tablet morning. MULTIVIT-NY Yes Take by Met hodi NERALS/FERR 9-10 [...] 25 12 every l mcg tablet morning. MULTIVIT-NY Yes Take by Met hodi NERALS/FERR 9-10 [...] 25 12 every l mcg tablet morning. MULTIVIT-[place] Yes Take by Met hodi NERALS/FERR 9-10 [...] capsule MINUTES BEFORE BREAKFAST SHINGRIX, Yes PHARMACIST Il erwingris , 50 8-[address] mcg/0.5 mL 00:00: ED [facility] suspension IMMUNIZATI l for ON reconstitut ADMINISTER ion IM ED AT TIME injection OF DISPENSING SHINGRIX, Yes PHARMACIST Il er[place]ris , 50 8-[address] mcg/0.5 mL 00:00: ED Hospita suspension IMMUNIZATI l for ON reconstitut ADMINISTER ion IM ED AT TIME injection OF DISPENSING SHINGRIX, Yes PHARMACIST [place] , 50 8-[address] mcg/0.5 mL 00:00: ED Hospita suspension IMMUNIZATI l for ON reconstitut ADMINISTER ion IM ED AT TIME injection OF DISPENSING SHINGRIX, Yes PHARMACIST [place] , 50 8-[address] mcg/0.5 mL 00:00: ED Hospita suspension IMMUNIZATI l for ON reconstitut ADMINISTER ion IM ED AT TIME injection OF DISPENSING SHINGRIX, Yes PHARMACIST [place] , 50 8-[address] mcg/0.5 mL 00:00: ED Hospita suspension IMMUNIZATI l for ON reconstitut ADMINISTER ion IM ED AT TIME injection OF DISPENSING SHINGRIX, Yes PHARMACIST Il er[place]ris , 50 8-[address] mcg/0.5 mL [...] every Hospita tablet 00 evening. l atorvastati 2019-0 Yes 80mg QD Take 80 mg Methodi n (LIPITOR) 6-[address] 80 MG 00:00: every Hospita tablet 00 evening. l atorvastati 2019-0 Yes 80mg QD Take 80 mg Methodi [...] l times a day with meals. carvedilol 0 Yes 12.5mg Q.5D Take 12.5 Methodi (COREG) [...] MG t_with_ 500 MG a_meal} Tamsulosin Tamsulosin No QD Tamsulosin HCl 0.4 MG HCl 0.4 MG 11-26 HCl 0.4 MG 00:00 :00 Vital Signs Vital Name Observation Time Observation Value Comments Source Heart rate 2022-01-13 21:25:00 79 /min [facility] Respiratory rate 2022-01-13 21:25:00 14 /min [facility] Oxygen saturation in 2022-01-13 21:25:00 100 /min University of Arterial blood by [facility] Pulse oximetry Branch Body temperature 2022-01-13 20:25:00 36.72 Shannan Univ ersity [facility] [place] [facility] Systolic blood 2022-01-13 18:29:00 115 mm[Hg] Univer sity of pressure [place] [facility] Diastolic blood 2022-01-13 18:29:00 78 mm[Hg] Unive rsity of pressure [place] [facility] Body height 2022-01-13 15:30:00 175.3 cm Universi ty [facility] [place] [facility] Body weight 2022-01-13 15:30:00 83.008 kg [facility]i ty [facility] [place] [facility] BMI 2022-01-13 15:30:00 27.02 kg/m2 [facility]i [facility] [place] [facility] Systolic blood 2021-12-29 14:04:00 134 mm[Hg] Univer sity of pressure [place] [facility] Diastolic blood 2021-12-29 14:04:00 89 mm[Hg] Unive rsity of pressure [place] [facility] Heart rate 2021-12-29 14:04:00 89 /min [facility]i ty [facility] [place] [facility] Body temperature 2021-12-29 14:04:00 36.72 Shannan Univ ersity [facility] [place] [facility] Respiratory rate 2021-12-29 14:04:00 16 /min Univ ersity [facility] [place] [facility] Oxygen saturation in 2021-12-29 14:04:00 99 /min University of Arterial blood by [facility] Pulse oximetry Branch Systolic blood 2021-12-20 18:48:00 115 mm[Hg] Univer sity of pressure [place] [facility] Diastolic blood 2021-12-20 18:48:00 75 mm[Hg] Unive rsity of pressure [place] [facility] Heart rate 2021-12-20 18:48:00 80 /min [facility]i ty [facility] [place] [facility] Body temperature 2021-12-20 18:48:00 36.33 Shannan Univ ersity [facility] [place] [facility] Respiratory rate 2021-12-20 18:48:00 18 /min Univ ersity [facility] [place] [facility] Body height 2021-12-20 18:48:00 175.3 cm [facility]i ty [facility] [place] [facility] Body weight 2021-12-20 18:48:00 83.825 kg [facility]i [facility] [place] [facility] BMI 2021-12-20 18:48:00 27.29 kg/m2 Universi ty [facility] Oxygen saturation in 2021-12-20 18:48:00 100 /min University of Arterial blood by [facility] Pulse oximetry Branch height 2021-12-01 10:45:00 72 [in_i] [facility] weight 2021-12-01 10:45:00 189.2 [lb_av] [facility] temperature 2021-12-01 10:45:00 97.2 [degF] Common [facility] bmi 2021-12-01 10:45:00 25.66 kg/m2 [facility] oximetry 2021-12-01 10:45:00 98 % [facility] respiratory rate 2021-12-01 10:45:00 18 /min Comm on [facility] blood pressure 2021-12-01 10:45:00 126 mm[Hg] Common [facility] systolic [facility] blood pressure 2021-12-01 10:45:00 71 mm[Hg] [facility] diastolic [facility] Systolic blood 2021-11-05 16:00:00 155 mm[Hg] Univer sity of pressure [facility] Diastolic blood 2021-11-05 16:00:00 85 mm[Hg] Unive rsity of [facility] Heart rate 2021-11-05 16:00:00 74 /min Universi [facility] Respiratory rate 2021-11-05 16:00:00 18 /min [facility] in 2021-11-05 16:00:00 96 /min University of Arterial blood by [facility] Pulse oximetry Branch Body temperature 2021-11-05 13:36:00 37.33 Shannan Univ ersity [facility] Body weight 2021-11-05 13:36:00 97.523 kg Universi ty [facility] BMI 2021-11-05 13:36:00 29.99 kg/m2 Universi ty [facility] Systolic blood 2021-11-03 20:55:00 127 mm[Hg] Univer [facility] Diastolic blood 2021-11-03 20:55:00 77 mm[Hg] [facility] Heart rate 2021-11-03 20:55:00 80 /min [facility] Body temperature 2021-11-03 20:55:00 36.67 Shannan [facility] Respiratory rate 2021-11-03 20:55:00 17 /min [facility] Oxygen saturation in 2021-11-03 20:55:00 96 /min [facility] Arterial blood by [facility] Pulse oximetry [place] Body height 2021-11-01 22:44:00 180.3 cm [facility] Body weight 2021-11-01 22:44:00 97.523 kg [facility] BMI 2021-11-01 22:44:00 29.99 kg/m2 [facility] Procedures Procedure Date / Time Performing Clinician Source Performed ABORH CONFIRMATION (LAB 2022-01-13 17:17:00 Edwin Radfordalan [facility] ONLY) [facility] [place] [facility] HB ABO GROUPING 2022-01-13 16:05:00 Prabhakar [facility] BASIC METABOLIC PANEL 2022-01-13 16:03:00 Edwin Radfordalan [facility] (NA, K, CL, CO2, GLUCOSE, Medica l Branch BUN, CREATININE, CA) CBC WITH DIFF 2022-01-13 16:03:00 Prabhakar [facility] PROTHROMBIN TIME / INR 2022-01-13 16:03:00 Edwin Radfordalan [facility] DEXA AXIAL (HIP AND 2022-01-10 16:22:13 Madina Hilton [facility] SPINE) [facility] [place] [facility] BASIC METABOLIC PANEL 2021-12-29 14:07:00 Madina Hilton [facility] (NA, K, CL, CO2, GLUCOSE, Medica l [place] BUN, CREATININE, CA) CBC WITHOUT DIFF 2021-12-29 14:07:00 Madina Hilton [facility] PROTHROMBIN TIME / INR 2021-12-29 14:07:00 [facility] ASSIGNMENT OF BENEFITS 2021-12-20 18:42:17 Doctor [facility], [facility] [place] PATIENT QUESTIONNAIRE 2021-11-10 05:01:00 Doctor Unassigned, [facility] BASIC METABOLIC PANEL 2021-11-05 13:56:00 Gina Willoughby [facility] (NA, K, CL, CO2, GLUCOSE, Medica l Branch BUN, CREATININE, CA) CBC WITH DIFF 2021-11-05 13:56:[address] [facility] y [facility] PROTHROMBIN TIME / INR 2021-11-05 13:56:00 [facility] 2021-11-05 13:56:00 Gina Willoughby [facility] CONSENT/REFUSAL FOR 2021-11-05 13:42:38 Doctor Unassester, [facility] 2021-11-05 13:38:[address] [facility] y [facility] MR LUMBAR SPINE WO 2021-11-02 13:53:19 Stan Tate [facility] BASIC METABOLIC PANEL 2021-11-02 10:04:00 Camilla Boateng [facility] (NA, K, CL, CO2, GLUCOSE, Medica l Branch BUN, CREATININE, CA) CBC WITH DIFF 2021-11-02 10:04:00 [facility] URINALYSIS 2021-11-02 01:21:00 [facility] POCT GLUCOSE (AUTOMATED) 2021-11-01 21:21:00 Camilla Boateng [facility] LIPASE 2021-11-01 15:25:00 Fernando Woodward [facility] MAGNESIUM 2021-11-01 15:25:00 [facility] TROPONIN I 2021-11-01 15:25:00 Fernando Woodward [facility] FREE T4 2021-11-01 15:25:00 [facility] THYROID STIMULATING 2021-11-01 15:25:00 Fernando Woodward [facility] HORMONE [facility] Branch COMP. METABOLIC PANEL 2021-11-01 15:25:00 Fernando Woodward [facility] ([id number]) Medical Branch PROTHROMBIN TIME / INR 2021-11-01 15:25:00 Fernando Woodward [facility] ACTIVATED PARTIAL 2021-11-01 15:25:00 Fernando Woodward [facility] THRMPLAS PACHECO [facility] Branch CT CERVICAL SPINE WO 2021-11-01 15:16:24 Fernando Woodward [facility] CONTRAST [facility] CT HEAD WO CONTRAST 2021-11-01 15:16:24 Fernando Woodward [facility] CT LUMBAR SPINE WO 2021-11-01 15:16:24 Fernando Woodward [facility] CONTRAST [facility] CT THORACIC SPINE WO 2021-11-01 15:16:24 Fernando Woodward [facility] CONTRAST [facility] COVID-19 (ID NOW RAPID 2021-11-01 14:32:00 Fernando Woodward [facility] TESTING) Medical Branch LAB ONLY COVID 2021-11-01 14:32:00 Fernando Woodward [facility] INTERPRETATION [facility] CBC WITH DIFF 2021-11-01 14:32:00 Fernando Woodward [facility] NOTICE OF PRIVACY 2021-11-01 14:19:51 Doctor Flaco, [facility] PRACTICES [place] [facility] [place] CONSENT/REFUSAL FOR 2021-11-01 14:19:26 Doctor Flaco [facility] DIAGNOSIS AND TREATMENT [place] [facility] HB ECG ROUTINE & RHYTHM 2021-11-01 14:17:52 Fernando Woodward [facility] STRIP [facility] HOSPITAL ADMISSION 2021-11-01 05:01:00 Doctor Flaco [facility] PATIENT QUESTIONNAIRE 2021-08-31 05:01:00 Doctor Flaco [facility] Medical [place] Plan of Care Planned Activity Planned Date Details Comments Source Future Scheduled 2022-08-17 Screening for [facility] Test 07:00:30 malignant neoplasm of colon (procedure) [code = 057507260] Future Scheduled 2022-08-17 Screening for [facility] Test 07:00:30 malignant neoplasm of colon (procedure) [code = 492282819] Future Scheduled 2022-08-17 Screening for [facility] Test 07:00:30 malignant neoplasm of colon (procedure) [code = 320145943] Future Scheduled 2022-08-17 COVID-19 VACCINE (#1) [facility] Test 07:00:30 [code = COVID-19 VACCINE (#1)] Future Scheduled 2022-08-17 65+ PNEUMOCOCCAL [facility] Test 07:00:30 VACCINE (1 - PCV) [code = 65+ PNEUMOCOCCAL VACCINE (1 - PCV)] Future Scheduled 2022-08-17 Hepatitis C screening [facility] Test 07:00:30 (procedure) [code = 966593744] Future Scheduled 2022-08-17 Screening [facility] Test 07:00:30 malignant neoplasm of colon (procedure) [code = 553776650] Future Scheduled 2022-08-17 Scre[facility] Test 07:00:30 malignant neoplasm of colon (procedure) [code = 284021273] Future Scheduled 2022-08-17 SHINGLES VACCINES ([facility] 07:00:30 of 2) [code = SHINGLES VACCINES (1 of 2)] Future Scheduled 2022-08-17 INFLUENZA VACCINE [facility] Test 07:00:30 [code = INFLUENZA VACCINE] Future Scheduled 2022-08-03 Screening [facility] Test 05:35:18 malignant neoplasm of colon (procedure) [code = 224013860] Future Scheduled 2022-08-03 Scre[facility] Test 05:35:18 malignant neoplasm of colon (procedure) [code = 134810900] Future Scheduled 2022-08-03 [facility] Test 05:35:18 malignant neoplasm of colon (procedure) [code = 038726510] Future Scheduled 2022-08-03 COVID-19 VACCINE (#1) [facility] Test 05:35:18 [code = COVID-19 VACCINE (#1)] Future Scheduled 2022-08-03 65+ PNEUMOCOCCAL [facility] [place] [facility] Test 05:35:18 VACCINE (1 - PCV) [code = 65+ PNEUMOCOCCAL VACCINE (1 - PCV)] Future Scheduled 2022-08-03 Hepatitis C screening [facility] Test 05:35:18 (procedure) [code = 541182682] Future Scheduled 2022-08-03 Screening for [facility] Test 05:35:18 malignant neoplasm of colon (procedure) [code = 438995509] Future Scheduled 2022-08-03 Screening for [facility] Test 05:35:18 malignant neoplasm of colon (procedure) [code = 108539085] Future Scheduled 2022-08-03 [facility]ACCINES ([facility] 05:35:18 of 2) [code = SHINGLES VACCINES (1 of 2)] Future Scheduled 2022-08-03 [facility]ACCINE [facility] Test 05:35:18 [code = INFLUENZA VACCINE] Future Scheduled 2022-08-03 Screening for [facility] Test 05:35:18 malignant neoplasm of colon (procedure) [code = 072274175] Future Scheduled 2022-08-03 Screening for [facility] Test 05:35:18 malignant neoplasm of colon (procedure) [code = 388640694] Future Scheduled 2022-08-03 Screening [facility] Test 05:35:18 malignant neoplasm of colon (procedure) [code = 833853917] Future Scheduled 2022-08-03 COVID-19 VACCINE (#1) [facility] Test 05:35:18 [code = COVID-19 VACCINE (#1)] Future Scheduled 2022-08-03 65+ [facility]CCAL [facility] Test 05:35:18 VACCINE (1 - PCV) [code = 65+ PNEUMOCOCCAL VACCINE (1 - PCV)] Future Scheduled 2022-08-03 Hepatitis C screening [facility] Test 05:35:18 (procedure) [code = 677583859] Future Scheduled 2022-08-03 Screening for [facility] Test 05:35:18 malignant neoplasm of colon (procedure) [code = 416304390] Future Scheduled 2022-08-03 Screening [facility] Test 05:35:18 malignant neoplasm of colon (procedure) [code = 556669707] Future Scheduled 2022-08-03 SHINGLES VACCINES (1 [facility] Test 05:35:18 of 2) [code = SHINGLES VACCINES (1 of 2)] Future Scheduled 2022-08-03 [facility] Test 05:35:18 [code = INFLUENZA VACCINE] Future Scheduled 2022-06-01 COVID-19 VACCINE (#1) [facility] Test 07:25:05 [code = COVID-19 VACCINE (#1)] Future Scheduled 2022-06-01 65[facility] Test 07:25:05 VACCINE (1 - PCV) [code = 65+ PNEUMOCOCCAL VACCINE (1 - PCV)] Future Scheduled 2022-06-01 [facility] C [facility] Test 07:25:05 (procedure) [code = 206465050] Future Scheduled 2022-06-01 [facility]OS[facility] SCREENING [facility] Test 07:25:05 [code = COLONOSCOPY SCREENING] Future Scheduled 2022-06-01 SHINGLES VACCINES (1 [facility] Test 07:25:05 of 2) [...] [facility] Test 06:47:11 (procedure) [code = 748515044] Future Scheduled 2022-02-09 [facility] Test 06:47:11 [code = COLONOSCOPY SCREENING] Future Scheduled 2022-02-09 SHINGLES VACCINES (1 [facility] Test 06:47:11 of 2) [...] PCV)] Future Scheduled 2022-02-09 Hepatitis C screening [facility] Test 06:47:11 (procedure) [code = 010783036] Future Scheduled 2022-02-09 COLONOSCOPY SCREENING [facility] Test 06:47:11 [code = COLONOSCOPY SCREENING] Future Scheduled 2022-02-09 SHINGLES VACCINES (1 [facility] Test 06:47:11 of 2) [code = SHINGLES VACCINES (1 of 2)] Future Scheduled 2022-02-09 [facility]ACCINE [facility] Test 06:47:11 [code = INFLUENZA VACCINE] Encounters Start End Encounter Admission Attending Care Care Encounter Source Date/Time Date/Time Type Type Clinicians Facility Department ID 2021-12-01 Outpatient [facility] [id number] Common 10:33:03 [facility] 2022-06-15 2022-06-[id number] [place] 00:00:00 00:00:00 [id number] [facility] 2022-06-15 2022-06-15 [place] [place] [id number] [place] 00:00:00 00:00:00 [id number] [facility] 2022-05-25 2022-06-10 Inpatient EM EAMON ReynoldsBM [facility] [id number] [facility] 03:34:00 13:28:00 Tawio 10 [facility] 2022-06-08 2022-06-08 [place] [id number] [place] 00:00:00 00:00:00 [id number] [facility] 2022-05-16 2022-05-18 Emergency EM Ryan, HCAPM ANITA [id number] [facility] 20:35:00 15:15:00 Lakhwinder 28 [facility] 2022-01-13 2022-01-13 Outpatient R MARLON EAST [facility] U [facility] [id number] [facility] 08:48:05 23:59:00 MARLON EAST warren [facility] 2022-01-13 2022-01-13 [facility] Marlon East [facility] 1.2 .840.114 [id number] [facility] 08:48:05 23:59:00 Encounter Gustavo Radford [facility] 350.1.13.10 ity of EdAman LONI 4.2.7.2.686 [place] [id number] [address] ([facility]) 2022-01-10 2022-01-10 Outpatient R MADINA HILTON [facility] [id number] Univers 10:01:41 23:59:00 ity of [facility] 2022-01-10 2022-01-10 [facility] [place]Madina [facility] 1.2.840.114 [id number] Univers 10:01:41 23:59:00 Encounter JAY 350.1.13.10 ity of [place] [facility] [place] [id number] [facility] [address] 2021-12-29 2021-12-29 [facility] 1.2.840.114 [id number] Univers 08:44:14 23:59:00 Encounter Russell, HEALTH 350.1.13.10 ity of [facility] 4.2.7.2.[place] [id number] [place] [id number] [place] 2021-12-29 2021-12-29 Outpatient R ADY GRULLONOMOOSELO [facility] U [facility] [id number] Univers 00:00:00 23:59:00 GARSIASAM GRULLONNieves MARLON [facility] 2021-12-27 2021-12-27 Outpatient R ADY RUSSELL MARLON [facility] U [facility] [id number] Univers 00:00:00 00:00:[address] [facility] 2021-12-24 2021-12-24 Outpatient R MADINA HILTON [facility] [id number] Univers 08:03:05 23:59:00 ity of [facility] 2021-12-24 2021-12-24 [facility] Madina Hilton [facility] 1.2.840.114 [id number] Univers 08:03:05 23:59:00 Encounter [facility] Y HEALTH 350.1. 13.10 ity of [facility] 4.2.7.2.[place] [id number] [facility] [address] 2021-12-20 2021-12-20 Office Garsia [facility] 1.2.840.114 [id number] Univers 14:00:00 14:30:00 Visit RussellKIMBERLEY medrano 350.1.13.10 i ty of [place]2.[place] [id number] [facility] [address] OFFICE BUILDING 2021-12-20 2021-12-20 Outpatient R MARLON EAST [facility] U [facility] [id number] Univers 14:00:00 14:00:00 MARLON EAST ity of [facility] 2021-12-20 2021-12-20 Orders Doctor KWAME 1.2.840.114 [id number] Univers 00:00:00 00:00:00 Only Unassigned, CHRISTINE 350.1.13.10 ity of [place] [facility] 4.2.7.2.686 She[place] as [id number] [facility] 009 [place] 2021-12-01 2021-12-01 [facility] [id number] Co mmon 00:00:00 00:00:00 VISIT EST Spir it PT LEVEL 3 - [facility] 2021-11-10 2021-11-10 Orders Doctor KWAME 1.2.840.114 [id number] Univers 00:00:00 00:00:00 Only Unassigned, CHRISTINE 350.1.13.10 [facility] 4.2.7.2.686 [place] as [id number] [facility] 009 [place] 2021-11-05 2021-11-05 Emergency X [facility] [id number] Univers 08:34:00 11:10:00 GINA ity of [facility] 2021-11-05 2021-11-05 Emergency [facility] 1.2.840.114 [id number] Univers 08:34:00 11:10:00 Gina CASH 350.1.13.10 ity of [place] [id number] [facility] [address] 2021-11-04 2021-11-04 Transition ARTEMIO Patel 1.2.840.114 [id number] Univers 00:00:00 00:00:00 of Care Lenora LAURENY 350.1.13.10 it y of [place]2.[place].2.[place] [id number] [place] [address] [place] 2021-11-04 2021-11-04 Telephone Miriam [facility] 1.2.602.621 [id number] Univers 00:00:00 00:00:00 [facility] 350.1.13.10 it y of [place] 4[place] [id number] [place] [address] [address] ([facility]) 2021-11-01 2021-11-03 Outpatient U MIRIAM [facility] [id number] Univers 09:12:00 18:06:00 PETER ity [facility] 2021-11-01 2021-11-03 Emergency MilanFernando seals [facility] 1.2.84 0.114 [id number] Univers 09:12:00 18:06:00 Miriam [facility] 350.1.13.10 ity of [place] [id number] [address] ([facility]) 2021-08-31 2021-08-31 Orders Doctor KWAME 1.2.840.114 [id number] Univers 00:00:00 00:00:00 Only Unassigned, CHRISTINE 350.1.13.10 ity of [place] [facility] 4.2.7.2.686 [place] [id number] [place] [address] [address] 2019-12-03 2019-12-03 Outpatient [facility] [id number] [address] [place] [address] 00:00:00 00:00:00 BERTHA [address] Results Test Description Test Time Test Comments Results Result Comments Source COVID 19 INHOUSE AG 2022-06-10 11:27:00 Test Item Value Reference Range Interpretation Comme nts COVID 19 INHOUSE AG (test code = [id number]) NEGATIVE NEGATIVE STAT COVID ORDER PER RN JS, [id number] 06/10/22 1107BASIC METABOLIC PANEL 2022-06-09 10:52:00 Test [...] the recommended for sebastian for GFRby the [facility] Kidney Foundati on for Adults.The GFR will [...] mg/dL 8.5-10.1 L = CA) CBC W/AUTO [id number] 10:29:00 Test Item Value Reference Range Interpretation [...] (test code NO = MDIFF) BASIC METABOLIC [id number] 04:40:00 Test Item Value Reference Range Interpretation [...] mg/dL 8.5-10.1 L = CA) CBC W/AUTO [id number] 04:17:00 Test Item Value Reference Range Interpretation [...] 0.00 K/mm3 0.0-0.1 N NRBC#) BASIC METABOLIC [id number] 06:02:00 Test Item Value Reference Range Interpretation [...] mg/dL 8.5-10.1 L = CA) CBC W/AUTO [id number] 05:36:00 Test Item Value Reference Range Interpretation [...] 0.00 K/mm3 0.0-0.1 N NRBC#) - RETRO [id number] 17:44:00 [facility])Name: KAYLA HO : 1945 Sex: M Name: KAYLA HO [facility] : 1945 Age/S: 76 / M [address] Unit #: [id number] Loc: [place] [address] Phys: Adonis Womack NP Acct: [id number] Dis Date: Status: ADM IN PHONE #: [phone] Exam Date: 06/03/2022 172 FAX #: [phone] Reason: acute kidney failure EXAMS: CPTCODE: [id number] US RETRO LTD 83799 REASON FOR EXAM: acute kidney failure EXAM ORDER DATE: 06/03/2022 9:50 AM Attending MKieshaDKiesha: Adonis Womack NP PROCEDURE: - US RETRO [...] the left kidney is sonographically unremarkable. Location: [facility] Electronically Signed by Sai Redman MDon 06/03/2022 at 1744 Reported and signed by: Sai Redman MD CC: Taiwo Reynolds MD; Adonis Womack NP; Jaqueline Zhao NP Technologist: Suzette Aquino Trnscb Date/Time: 06/03/2022 (1743) [email or web address] Orig Print D/T: S: 06/03/2022 (174) Probe: PAGE 1 Signed Report ARTERIAL BLOOD [id number] 17:20:00 Test Item Value Reference Range Interpretation Comments ARTERIAL BLOOD GAS PH 7.50 7.35-7.45 H (test code = PHA) ARTERIAL BLOOD GAS PCO2 20.2 mm Hg 35-45 LL Resu lts called (test code = PCO2A) to and r ead back by Jimy - 06/03/2022; by ARTERIAL BLOOD GAS PO2 70.3 mmHg 80-100 L (test code = PO2A) BICARBONATE TOTAL HCO3 15.4 mmol/L 23.0-27.0 L (test code = HCO3) BASE EXCESS (test code = -5.0 mmol/L -3.0-5.0 LL Res ults called YEISON) to and read back by Jimy - 06/03/2022; by ABG O2 SATURATION (test 94.8 [...] % vol 18.0-22.0 N O2CT) BASIC METABOLIC [id number] 14:01:00 Test Item Value Reference Range Interpretation [...] sebastian for GFRby the N [facility] for Adults.The GFR will [...] 8.4 mg/dL 8.5-10.1 L = CA) URINALYSIS [id number] 13:00:00 Test Item Value Reference Range Interpretation [...] code = BACU) SPECIMEN COMMENTS: nCOMMENTS TO UNDERWRITING ASSISTANT: nUrine Source? MidstreamBASIC METABOLIC [id number] 09:13:00 Test Item Value Reference Range Interpretation [...] sebastian for GFRby the N [facility] for Ad[facility].The GFR will [...] code 8.4 mg/dL 8.5-10.1 L = CA) [id number] 09:13:00 Test Item Value Reference Range Interpretation Comments MAGNESIUM (test code = MAG) 2.1 mg/dL 1.8-2.4 N CBC W/AUTO [id number] 08:33:00 Test Item Value Reference Range Interpretation [...] N NRBC#) - XR ABDOMEN AP 1 [id number] 15:13:00 [facility] 1945 Sex: M FAX: Taiwo Reynolds MD [phone] [place]: St: ADM FAX: Evon Dorado [phone] FAX:Jaqueline Zhao TRAFFIC CLERK Name: KAYLA HO [facility] : 1945 Age/S: 76/M [address] Unit #: [id number] Loc: [address] [place] [address] Phys: Evon Dorado Acct: [id number] Dis Date: Status: ADM IN PHONE #: [phone] Exam Date: 05/30/2022 1443 FAX #: [phone] Reason: Distention EXAMS: CPT CODE: [id number] XR ABDOMEN AP 1 V 59909 HISTORY: Distention PROCEDURE: - XR ABDOMEN AP 1 V COMPARISON: NoneFINDINGS: Nonobstructive bowel gas pattern. No significant stool burden. No intra-abdominal mass effect. No abnormal calcifications are observed. 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 There are degenerative changes in the bilateral hips. IMPRESSION: No radiographic evidence of acute intra-abdominal process. Location: [facility] at 1513 Reported and signed by: Sai Redman MD CC: Taiwo Reynolds MD; Evon Dorado; Jaqueline Zhao NP Technologist: BRICE TIAN Trnscrd Date/Time/By: 05/30/2022 (151) : By: [email or web address] Orig Print D/T: S: 05/31/2022 (0824) PAGE 1 Signed ReportBASIC METABOLIC [id number] 07:22:00 Test Item Value Reference Range Interpretation [...] mg/dL 8.5-10.1 N = CA) CBC W/AUTO [id number] 06:05:00 Test Item Value Reference Range Interpretation [...] indicativ e of the presence code = HASJJ43FF) ofSARS-CoV -2 RNA, clinical correlation wit h [...] det ection of nucleic acids f rom agkQSKB-MpK-1 v irus and diagnosis of SA RS-CoV-2 virusinfection. It is an Emergency Use Authorization ( EUA) testauthorized by the U.S. FDA. Novel Coronavirus [id number] 21:12:00 Test Item Value Reference Range Interpretation Comments Novel Coronavirus Negative Negative Positive r esults are 2019 Inhouse (test indicativ e of the presence code = FODDZ34GU) ofSARS-CoV -2 RNA, clinical correlation wit h [...] det ection of nucleic acids f rom mwdAYAY-ZjY-7 v irus and diagnosis of SA RS-CoV-2 virusinfection. It is an Emergency Use Authorization ( EUA) testauthorized by the U.S. FDA. BASIC METABOLIC [id number] 08:50:00 Test Item Value Reference Range Interpretation [...] mg/dL 8.5-10.1 N = CA) CBC W/AUTO [id number] 08:25:00 Test Item Value Reference Range Interpretation [...] NO = MDIFF) - XR CHEST 1 [id number] 11:37:00 [facility]Name: KAYLA HO : 1945 Sex: M FAX: Taiwo Reynolds MD [phone] [place]: St: [facility] FAX: Evon Dorado [phone] FAX:Jaqueline Zhao TRAFFIC CLERK Name: KAYLA HO [facility] : 1945 Age/S: 76/M [address] Unit #: [id number] Loc: [place] [address] Phys: Evon Dorado Acct: [id number] Dis Date: Status: ADM IN PHONE #: [phone] Exam Date: 05/27/2022 1130 FAX #: [phone] Reason: Respiratory decompensation, co mparison EXAMS: CPT CODE: [id number] XR CHEST 1 V 36493 HISTORY: Respiratory decompensation. COMPARISON: May 25, 2022. Location: [facility]. No acute infiltrates, effusion or congestion is noted. Suboptimal inspiration. Dependent changes. Cardiomegaly. Elevated left hemidiaphragm with markedly distended air-filled stomach. IMPRESSION: No acute infiltrates, effusion or congestion. Suboptimal inspiration. Markedly distended air-filled stomach. at 1137 Reported and signed by: Renato Padilla M.D. 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 BASIC METABOLIC [id number] 02:02:00 Test Item Value Reference Range Interpretation [...] the recommended for sebastian for GFRby the [facility] Kidney Foundati on for Adults.The GFR will [...] mg/dL 8.5-10.1 L = CA) CBC W/AUTO [id number] 01:36:00 Test Item Value Reference Range Interpretation [...] K/mm3 0.0-0.1 N NRBC#) - CT CHEST [id number] 07:10:00 [facility]Name: KAYLA HO : 1945 Sex: M Name: KAYLA HO [facility] : 1945 Age/S: 76 / M [address] [facility] Unit #: [id number] Loc: [place] [address] Phys: Klaudia Osborn MD Acct: [id number] Dis Date: Status: ADM IN PHONE#: [phone] Exam Date: 05/25/2022 0456 FAX #: [phone] Reason: pneumonia vs other pathologic cause of hypoxia EXAMS: CPT CODE: [id number] CT CHEST W/CONTRAST 82496 HISTORY: Pneumonia. COMPARISON: Chest x-ray from same day. Location: [facility]. CT chest without contrast: CT dose reduction protocol: Automated exposure control adjustment of mA and/or kV according to patient size or iterative reconstruction dose optimization techniques were used. Unremarkable atherosclerotic aorta without dissectionor aneurysm. Well- opacified SVC and the neck vasculature. Pulmonary arteries are very difficult to assess due to extensive artifact especially on the right side. If there is suspicion of pulmonary embolism then correlate with repeat examination using PE protocol. Thyroid glands are limited by motion. No pathologic adenopathy. Esophageal wall is not thickened. Cardiac silhouette is normal without peric ardial effusion. Very heavy atherosclerotic calcifications of the LAD and the circumflex arteries and to lesser extent the right coronary artery. Visualized upper abdomen also limited by motion demonstrate evidence for right nephrectomy. Subcutaneous tissues and musculature are normal in appearance. No lytic or blastic lesions visible within this motion limited exam. Vertebroplasty cement within the L1 vertebral body. The lungs are clear of infiltrates, effusion or congestion. Dependent changes. Elevated right hemidiaphragm. No bronchiectasis, honeycombing or fibrosis. No endobronchial lesions. Nodiscrete lung mass or nodules. IMPRESSION: Markedly motion [...] PAGE 1 SignedReport (CONTINUED) Name: KAYLA HO [facility] : 1945 Age/S: 76 / M [address] [facility] Unit #: [id number] Loc: [place] [address] Phys: Klaudia Osborn MD Acct: [id number] Dis Date: Status: ADM IN PHONE #: [phone] Exam Date: 05/25/2022 0456 FAX #: [phone] Reason: pneumonia vs other pathologic cause of hypoxia EXAMS: CPT CODE: [id number] CT CHEST W/CONTRAST 85007 (Continued) CC: Klaudia Osborn MD; Jaqueline Zhao NP Technologist:Lyric Ceballos RT(R) CTDI: DLP: Trnscb Date/Time:05/25/2022 (709) t.SDR.[email or web address] Orig Print D/T: S: 05/25/2022 (0713) PAGE 2 Signed ReportCOVID 19 INHOUSE [id number] 04:11:00 Test Item Value Reference Range Interpretation Comments COVID 19 INHOUSE AG (test code = NEGATIVE NEGATIVE [id number]) INFLUENZA A B [id number] 04:11:00 Test Item Value Reference Range Interpretation Comments INFLUENZA A POC (test code = Negative Negative INFLAAG) INFLUENZA B POC (test code = Negative Negative INFLBAG) SOURCE: [id number] 02:22:00 Test Item Value Reference Range Interpretation Comments TROPONIN-HS (test 10.820 pg/mL 0-45 N CAUTION: U nits of the code = TROPI) current test m ethodology (pg/mL)differ f rom the prior test meth odology (ng/mL) by a fa ctorof 1000. BASIC METABOLIC [id number] 02:22:00 Test Item Value Reference Range Interpretation [...] mg/dL 8.5-10.1 N = CA) HEPATIC FUNCTION [id number] 02:22:00 Test Item Value Reference Range Interpretation [...] due ALKP) to change in reagent. LACTIC [id number] 02:17:00 Test Item Value Reference Range Interpretation Comments LACTIC ACID (test code = LACT) 0.7 mmol/L 0.4-1.9 N URINALYSIS [id number] 01:56:00 Test Item Value Reference Range Interpretation [...] FEW MUCU) Indication for culture: RiskForSepsis-no oth srcCBC W/AUTO [id number] 01:52:00 Test Item Value Reference Range Interpretation [...] 0.0-0.1 N NRBC#) - XR CHEST 1 [id number] 01:08:00 [facility] : 1945 Sex: M FAX: Terry Yao MD [phone] [place]: B St: REG Name: CORINNA HOFAUSTO [facility] : 1945 Age/S: 76/M [address] [facility] Unit #: [id number] Loc: [place] [address] Phys: Terry Yao MD Acct: [id number] Dis Date: Status: REG ER PHONE #: [phone] Exam Date: 05/25/202252 FAX #: [phone] Reason: CODE SEPSIS EXAMS: CPT CODE: [id number] XR CHEST 1 V 03641 Dictation location: H3 Chest x-rayexam, single frontal projection, one view, 05/25/22 CLINICAL HISTORY: Code sepsis Comparison exam: None relevant to this exam FINDINGS: The lung [...] at 0108 Reported and signed by: Mamie Argueta M.D. CC: Terry Yao MD Technologist: Keisha Willis RT(R) Trnscrd Date/Time/By: 05/25/2022 (0108) : By: [email or web address] [facility] Print D/T: S: 05/25/2022 (0111) PAGE 1 Signed ReportCOVID 19 INHOUSE [id number] 06:17:00 Test Item Value Reference Range Interpretation Comments COVID 19 INHOUSE AG NEGATIVE Negative Per manu facturer, (test code = negative result s should [id number]) be treated aspr esumptive and, if inconsi [...] symptoms co nsistent with COVID-19. GLUCOSE BEDSIDE [id number] 17:07:00 Test Item Value Reference Range Interpretation Comments GLUCOSE BEDSIDE TESTING (test code = 77 mg/dL 70-110 N GLUBED) GLUCOSE BEDSIDE [id number] 10:14:00 Test Item Value Reference Range Interpretation Comments GLUCOSE BEDSIDE TESTING (test code = 89 mg/dL 70-110 N GLUBED) UA RFLX MICR CULT IF [id number] 08:39:00 Test Item Value Reference Range Interpretation [...] URINE: CLEAN CATCH DRUGS OF ABUSE SCREEN [id number] 08:39:00 Test Item Value Reference Range Interpretation [...] RiskForSepsis-no oth srcSOURCE OF URINE: CLEAN CATCH BASIC METABOLIC [id number] 22:02:00 Test Item Value Reference Range Interpretation [...] recommended for sebastian for GFRby the N [facility] Kidney Foundati on for Adults.The GFR will not calculate i f the sex is unknown or if thepatient's ag e is <18 years. CREATININE (test 1.4 MG/DL 0.8-1.3 H code = CREAT) CALCIUM (test code 9.3 MG/DL 8.5-10.1 N = CA) Last Dose Date: 02/28/00Last Dose Time: 0000HEPATIC FUNCTION [id number] 22:02:00 Test Item Value Reference Range Interpretation [...] ALKP) Last Dose Date: 02/28/00Las Dose Time: [id number] 22:02:00 Test Item Value Reference Range Interpretation Comments ACETAMINOPHEN (test code = ACET) <2.0 mcG/ML 10.0-30.0 L Last Dose Date: 02/28/00Las Dose Time: [id number] 22:02:00 Test Item Value Reference Range Interpretation Comments ALCOHOL (test code = ALC) < 3 MG/DL 0-10 N Last Dose Date: 02/28/00 Dose Time: [id number] 21:55:00 Test Item Value Reference Range Interpretation Comments SALICYLATE (test code < 1.7 MG/DL See_Comment L [Auto mated message] = DANISH) The system Larky generated this result transmitted ref erence range: 2.8-20.0 THER. The reference r ruben was not used to interpret this result as normal/abnor mal. CBC W/AUTO [id number] 21:50:00 Test Item Value Reference Range Interpretation [...] CRITERIA = MDIFF) - CT HEAD/BRAIN W/O [id number] 21:50:00 [facility] 1945 Sex: M Name: KAYLA HO : 1945 Age/S: 76 / M [address] [address] Unit #: [id number] Loc: [place] [address] Phys: Lakhwinder Davis MD Acct: [id number] Dis Date: Status: PRE ER PHONE #: [phone] Exam Date: 05/16/20222142 FAX #: Reason: homicidal ideation, dementia EXAMS: CPT: [id number] CT HEAD/BRAIN W/O CONT 10478 Exam: CT head without contrast. Location: H [...] intracranial abnormality. 2. Atrophy. 3. Atherosclerotic microvascular dis ease. 4. Otherwise unremarkable exam. at 2150 Reported and signed by: Fam Oneil M.D. CC: Technologist:RT Leila(R) CTDI: DLP: Trnscb Date/Time: 05/16/2022 (2149) Jed Orig Print D/T: S: 05/16/2022 (215 3) PAGE 1 Signed ReportABORH Confirmation (Lab Only)2022-01-13 18:00:24 Test Item Value Reference Range Interpretation Comments ABO & RH (test code O Negative Performe d at [facility] = 20) Laboratory [facility] [address] [place] [address] [phone] 4Toll Free: [phone] 266CLIA No. [id number] [facility] Only)2022-01-13 18:00:24 Test Item Value Reference Range Interpretation Comments ABO & RH (test code O Negative Performe d at [facility] = 20) Laboratory [facility] [address] [place] [address] [phone] 4Toll Free: [phone] 266CLIA No. [id number] [facility] Screen - ONCE [id number] 17:09:42 Test Item Value Reference Range Interpretation Comments ABO & RH (test code O Negative Performe d at [facility] = 20) Laboratory [facility] [place] [address] [phone] 4Toll Free: [phone] 266CLIA No. [id number] IAT (test code = Negative Performed a t [facility] 1185) Laboratory [facility] [address] [place] [address] [phone] 4Toll Free: [phone] 266CLIA No. [id number] [facility] - ONCE [id number] 17:09:42 Test Item Value Reference Range Interpretation Comments ABO & RH (test code O Negative Performe d at [facility] = 20) Laboratory [facility] [address] [place] [address] [phone] 4Toll Free: [phone] 266CLIA No. [id number] IAT (test code = Negative Performed a t [facility] 1185) Laboratory [facility] [address] [place] [address] [phone] 4Toll Free: [phone] 266CLIA No. [id number] [facility] WITH [id number] 16:51:42 Test Item Value Reference Range Interpretation [...] RDW-SD (test code = 42.8 fL 38.5-51.6 17058-6) RDW-CV (test code = 12.7 % 12.1-15.4 788-0) PLT (test code = See_Comment [Automated 777-3) message] The sy stem which generated this result transmitted reference range : 150 - 328 10*3/ ?L. The reference r ruben was not used to interpret this result as normal/abnormal . MPV (test code = 10.1 fL 9.8-13.0 10030-1) NRBC/100 WBC (test See_Comment [Automat ed code = 3292757798) message] The system which generated this result transmitted reference range : 0.0 - 10.0 /100 WBCs. The refer ence range was not u sed to interpret th is result as normal/abnormal . NRBC x10^3 (test code See_Comment [Auto mated = 5098428902) message] The s ystem which generated this result transmitted reference range : 10*3/?L. The reference range was not used to interpret this result as normal/abnormal . GRAN MAT (NEUT) % 70.2 % (test code = 770-8) IMM GRAN % (test code 0.70 % = 8206710764) LYMPH % (test code = 13.8 % 736-9) MONO % (test code = 9.0 % 5905-5) EOS % (test code = 5.3 % 713-8) BASO % (test code = 1.0 % 706-2) GRAN MAT x10^3(ANC) 4.23 10*3/uL 1.99-6.95 (test code = 7930502176) IMM GRAN x10^3 (test 0.04 10*3/uL 0.00-0.06 code = 4300446542) LYMPH x10^3 (test code 0.83 10*3/uL 1.09-3.23 L = 731-0) MONO x10^3 (test code 0.54 10*3/uL 0.36-1.02 = 742-7) EOS x10^3 (test code = 0.32 10*3/uL 0.06-0.53 711-2) BASO x10^3 (test code 0.06 10*3/uL 0.01-0.09 = 704-7) Lab Interpretation Abnormal (test code = 29187-5) [facility] WITH [id number] 16:51:42 Test Item Value Reference Range Interpretation Comments WBC (test code = See_Comment [Automated 2590-2) message] The sy stem which generated this result transmitted reference range : 4.20 - 10.70 10*3/?L. The reference range was not used to interpret this result as normal/abnormal . RBC (test code = See_Comment [Automated 939-8) message] The sy stem which generated this [...] RDW-SD (test code = 42.8 fL 38.5-51.6 17472-6) RDW-CV (test code = 12.7 % 12.1-15.4 788-0) PLT (test code = See_Comment [Automated 777-3) message] The sy stem which generated this result transmitted reference range : 150 - 328 10*3/ ?L. The reference r ruben was not used to interpret this result as normal/abnormal . MPV (test code = 10.1 fL 9.8-13.0 39178-4) NRBC/100 WBC (test See_Comment [Automat ed code = 6788998160) message] The system which generated this result transmitted reference range : 0.0 - 10.0 /100 WBCs. The refer ence range was not u sed to interpret th is result as normal/abnormal . NRBC x10^3 (test code See_Comment [Auto mated = 7144190415) message] The s ystem which generated this result transmitted reference range : 10*3/?L. The reference range was not used to interpret this result as normal/abnormal . GRAN MAT (NEUT) % 70.2 % (test code = 770-8) IMM GRAN % (test code 0.70 % = 5523871490) LYMPH % (test code = 13.8 % 736-9) MONO % (test code = 9.0 % 5905-5) EOS % (test code = 5.3 % 713-8) BASO % (test code = 1.0 % 706-2) GRAN MAT x10^3(ANC) 4.23 10*3/uL 1.99-6.95 (test code = 1736050548) IMM GRAN x10^3 (test 0.04 10*3/uL 0.00-0.06 code = 4210722225) LYMPH x10^3 (test code 0.83 10*3/uL 1.09-3.23 L = 731-0) MONO x10^3 (test code 0.54 10*3/uL 0.36-1.02 = 742-7) EOS x10^3 (test code = 0.32 10*3/uL 0.06-0.53 711-2) BASO x10^3 (test code 0.06 10*3/uL 0.01-0.09 = 704-7) Lab Interpretation Abnormal (test code = 68986-0) [facility]Proth[facility]bin Time / [id number] 16:42:58 Test Item Value Reference Range Interpretation Comments PROTIME PATIENT (test See_Comment [Auto mated message] code = 5964-2) The system [employer] generated this result transmitted ref erence range: 10.1 - 1 2.6 Seconds. The re ference range was not u sed to interpret this result as normal/abnor mal. INR (test code = 6301-6) Nor mal INR <1.1; Warfarin Therap eutic range 2.0 to 3. 0 or 2.5 to 3.5, dep ending upon the indica tions. Lab Interpretation (test Normal code = 21768-3) [facility] Time / [id number] 16:42:58 Test Item Value Reference Range Interpretation Comments PROTIME PATIENT (test See_Comment [Auto mated message] code = 5964-2) The system [employer] generated this result transmitted ref erence range: 10.1 - 1 2.6 Seconds. The re ference range was not u sed to interpret this result as normal/abnor mal. INR (test code = 6301-6) Nor mal INR <1.1; Warfarin Therap eutic range 2.0 to 3. 0 or 2.5 to 3.5, dep ending upon the indica tions. Lab Interpretation (test Normal code = 27986-6) [facility] (NA, K, CL, CO2, GLUCOSE, BUN, CREATININE, CA)2022-01-13 16:34:59 Test Item Value Reference Range Interpretation Comments NA (test code = 139 mmol/L 135-145 6478735383) K (test code = 4.2 mmol/L 3.5-5.0 1919249127) CL (test code = 105 mmol/L 98-108 1209526671) CO2 TOTAL (test code = 22 mmol/L 23-31 L 6341606107) AGAP (test code = 2-16 4234471317) BUN (test code = 13 mg/dL 7-23 4239004114) GLUCOSE (test code = 97 mg/dL 70-110 9613532223) CREATININE (test code = 1.05 mg/dL 0.60-1.25 8950901482) CALCIUM (test code = 9.0 mg/dL 8.6-10.6 7265712729) eGFR (test code = mL/min/1.73m2 9359858011) YAMIL (test code = YAMIL) Association of [...] tests). Lab Interpretation Abnormal (test code = 55907-6) [facility] METABOLIC PANEL (NA, K, CL, CO2, GLUCOSE, BUN, CREATININE, CA)2022-01-13 16:34:59 Test Item Value Reference Range Interpretation Comments NA (test code = 139 mmol/L 135-145 4233197116) K (test code = 4.2 mmol/L 3.5-5.0 5453137790) CL (test code = 105 mmol/L 98-108 5554883688) CO2 TOTAL (test code = 22 mmol/L 23-31 L 0130118522) AGAP (test code = 2-16 0618760285) BUN (test code = 13 mg/dL 7-23 3889737823) GLUCOSE (test code = 97 mg/dL 70-110 0986807987) CREATININE (test code = 1.05 mg/dL 0.60-1.25 9237663105) CALCIUM (test code = 9.0 mg/dL 8.6-10.6 5196477977) eGFR (test code = mL/min/1.73m2 4759962142) YAMIL (test code = YAMIL) Association of [...] tests). Lab Interpretation Abnormal (test code = 16218-5) [facility] METABOLIC PANEL (NA, K, CL, CO2, GLUCOSE, BUN, CREATININE, CA)2021-12-29 14:43:10 Test Item Value Reference Range Interpretation Comments NA (test code = 138 mmol/L 135-145 2561385534) K (test code = 4.1 mmol/L 3.5-5.0 9138955684) CL (test code = 105 mmol/L 98-108 3865127247) CO2 TOTAL (test code 25 mmol/L 23-31 = 6797576371) AGAP (test code = 2-16 8285702956) BUN (test code = 12 mg/dL 7-23 3234032183) GLUCOSE (test code = 91 mg/dL 70-110 4561925617) CREATININE (test code 1.16 mg/dL 0.60-1.25 = 6168229504) CALCIUM (test code = 9.3 mg/dL 8.6-10.6 1388489114) eGFR (test code = mL/min/1.73m2 3616922884) YAMIL (test code = YAMIL) Association of [...] or urine or abnormalities in imaging tests). [facility] METABOLIC PANEL (NA, K, CL, CO2, GLUCOSE, BUN, CREATININE, CA)2021-12-29 14:43:10 Test Item Value Reference Range Interpretation Comments NA (test code = 138 mmol/L 135-145 0784061427) K (test code = 4.1 mmol/L 3.5-5.0 8601816698) CL (test code = 105 mmol/L 98-108 5938623662) CO2 TOTAL (test code 25 mmol/L 23-31 = 2176279076) AGAP (test code = 2-16 2944752967) BUN (test code = 12 mg/dL 7-23 9973346944) GLUCOSE (test code = 91 mg/dL 70-110 7732671820) CREATININE (test code 1.16 mg/dL 0.60-1.25 = 1614646625) CALCIUM (test code = 9.3 mg/dL 8.6-10.6 9281054397) eGFR (test code = mL/min/1.73m2 8056116767) YAMIL (test code = YAMIL) Association of [...] or urine or abnormalities in imaging tests). [facility] Time / [id number] 14:31:29 Test Item Value Reference Range Interpretation [...] tions. Lab Interpretation (test Normal code = 17635-8) [facility] Time / [id number] 14:31:29 Test Item Value Reference Range Interpretation Comments PROTIME PATIENT (test See_Comment [Auto mated message] code = 5964-2) The system [employer] generated this result transmitted ref erence range: 10.1 - 1 2.6 Seconds. The re ference range was not u sed to interpret this result as normal/abnor mal. INR (test code = 6301-6) Nor mal INR <1.1; Warfarin Therap eutic range 2.0 to 3. 0 or 2.5 to 3.5, dep ending upon the indica tions. Lab Interpretation (test Normal code = 12775-2) [facility] WITHOUT [id number] 14:24:49 Test Item Value Reference Range Interpretation Comments WBC (test code = See_Comment [Automated message] The 6690-2) system which [employer] nerated this result tra nsmitted reference range : 4.20 - 10.70 10*3/?L. The reference range was not used to interpr et this result as normal/abnormal . RBC (test code = See_Comment [Automated message] The 789-8) system which [employer] nerated this result tra nsmitted reference range [...] MPV (test code = 10.4 fL 9.8-13.0 76043-2) RDW-CV (test code = 12.9 % 12.1-15.4 788-0) RDW-SD (test code = 43.0 fL 38.5-51.6 64844-1) NRBC x10^3 (test See_Comment [Automated message] The code = 8677141184) system [facility] generated this result tra nsmitted reference range : 10*3/?L. The reference r ruben was not used to int erpret this result as normal/abnormal . NRBC/100 WBC (test See_Comment [Automat ed message] The code = 2444772814) system [facility] generated this result tra nsmitted reference range : 0.0 - 10.0 /100 WBCs. The reference range was not used to interpr et this result as normal/abnormal . IPF % (test code = 0117255420) [facility] WITHOUT [id number] 14:24:49 Test Item Value Reference Range Interpretation [...] MPV (test code = 10.4 fL 9.8-13.0 87255-4) RDW-CV (test code = 12.9 % 12.1-15.4 788-0) RDW-SD (test code = 43.0 fL 38.5-51.6 11265-5) NRBC x10^3 (test See_Comment [Automated message] The code = 7460271485) system [facility] generated this result tra nsmitted reference range : 10*3/?L. The reference r ruben was not used to int erpret this result as normal/abnormal . NRBC/100 WBC (test See_Comment [Automat ed message] The code = 1990537905) system [facility] generated this result tra nsmitted reference range : 0.0 - 10.0 /100 WBCs. The reference range was not used to interpr et this result as normal/abnormal . IPF % (test code = 9590060482) [facility] (AUT[facility])2021-11-01 21:23:49 Test Item Value Reference Range Interpretation Comments POCT GLU (test code = 9303761260) 93 mg/dL 70-110 Lab Interpretation (test code = Normal 08315-9) [facility] Notes Date/Time Note Provider Source 2022-06-10 14:27:00-00:00 [facility] ([facility]) Hospitalist Discharge Summary REPORT#:[id number] REPORT STATUS: Signed DATE:06/10/22 TIME: 1427 PATIENT: KAYLA HO UNIT #: [id number] [address] AGE: 76 SEX: M ATTEND: Diogo Reynolds MD ADM AUTHOR: Evon Dorado * ALL edits or amendments must be made on the el CMP [employer]/computer document * General Information Discharge date: 05/26/22 [...] hypertension with coronary artery disease admitted from [facility] with reports of shortness of breath and [...] Zyprexa 2.5 mg PO Q6H. appreciate ps [facility] recs -Fall precautions #PUI for COVID-19 -Informed [...] Disposition: No longer means IP psych placement. FPC placement obtained. Consultants: psychiatry Med Rec Med [...] no CVA tendernes s, no muscle spasm Neuro/RADIOLOGY TRANSCRIPTIONIST: disoriented, alert, face symmetrical, not answering questions [...] 0 06/10/22 at 1429 at 1854 RPT #:[id number] END OF REPORT 2022-06-09 09:58:00-00:00 [facility] ([facility] Hospitalist Progress Note REPORT#:[id number] REPORT STATUS: Signed DATE:06/09/22 TIME: 957 PATIENT: KAYLA HO UNIT #: [id number] ROOM/BED: [address] : [birth year] AGE: 76 SEX: M ATTEND: Diogo Reynolds MD ADM AUTHOR: Evon Dorado * ALL edits or amendments must be made on the el [employer]/computer document * Subjective Chief complaint: Confusion HPI: Mr. Ho is a 76-year-old man with history of de mentia, hypothyroidism, hyperlipidemia, benign prost atic hypertrophy, hypertension with coronary artery disease admitted from [facility] with reports of shortness of breath and cough. Review of Systems All systems rev neg: except as noted Objective General VS/I O: Vital Signs: Date Time Temp Pulse Resp B/P B/P Pulse O2 O2 F low FiO2 Mean Ox Delivery Rate 06/09 0937 97 Room air 21 04/13 0736 97.7 65 18 135/75 95.3 97 [...] SUBQ Dextrose/Sodium Chloride (DEXTROSE 5%-NS) 1,000 ML .G30E34M IV Trazodone HCl (DESYREL) 50 MG BEDTIME [...] Clopidogrel Bisulfate (PLAVIX 75MG TAB) 75 MG D AILY PO Donepezil HCl (ARICEPT 10MG TAB) 10 [...] no CVA tendernes s, no muscle spasm Neuro/RADIOLOGY TRANSCRIPTIONIST: disoriented, alert, face symmetrical, not answering questions [...] Zyprexa 2.5 mg PO Q6H. appreciate ps [facility] recs -Fall precautions #PUI for COVID-19 -Informed [...] 0 06/09/22 at 1001 at 1113 RPT #:[id number] END OF REPORT 2022-06-08 13:52:00-00:00 [facility] ([facility]) Hospitalist Progress Note REPORT#:[id number] REPORT STATUS: Signed DATE:06/08/22 TIME: 1352 PATIENT: KAYLA HO UNIT #: [id number] ROOM/BED: [address] : [birth year] AGE: 76 SEX: M ATTEND: Diogo Reynolds MD ADM AUTHOR: Evon Dorado * ALL edits or amendments must be made on the [employer]/computer document * Subjective Chief complaint: confused somnolent leyva HPI: Mr. Ho is a 76-year-old man with history of de mentia, hypothyroidism, hyperlipidemia, benign prost atic hypertrophy, hypertension with coronary artery disease admitted from [facility] with reports of shortness of breath and [...] 2316 98.1 71 17 120/76 90.3 94 04/11 2021 95 Room air 06/07 1930 97.9 [...] SUBQ Dextrose/Sodium Chloride (DEXTROSE 5%-NS) 1,000 ML .K05Z11A IV Trazodone HCl (DESYREL) 50 MG BEDTIME [...] no CVA tendernes s, no muscle spasm Neuro/RADIOLOGY TRANSCRIPTIONIST: disoriented, alert, face symmetrical, not answering questions [...] Zyprexa 2.5 mg PO Q6H. appreciate ps [facility] recs -Fall precautions #PUI for COVID-19 -Informed [...] 0 06/08/22 at 1355 at 1113 RPT #:[id number] END OF REPORT 2022-06-08 09:15:00-00:00 [facility]) Urology Progress Note REPORT#:[id number] REPORT STATUS: Signed DATE:06/08/22 TIME: 914 PATIENT: KAYLA HO UNIT #: [id number] ROOM/BED: [address] : [birth year] AGE: 76 SEX: M ATTEND: Diogo Reynolds MD ADM AUTHOR: Fazal Mcguire MD * ALL edits or amendments must be made on the el [employer]/computer document * Subjective Comments: He is still somewhat out of it this morn ing. I will hold off on voiding trial. at 0915 RPT #:[id number] END OF REPORT 2022-06-07 15:58:00-00:00 [facility]) Hospitalist Progress Note REPORT#:[id number] REPORT STATUS: Signed DATE:06/07/22 TIME: 1557 PATIENT: KAYLA HO UNIT #: [id number] ROOM/BED: [address] : [birth year] AGE: 76 SEX: M ATTEND: Diogo Reynolds MD ADM AUTHOR: Evon Dorado * ALL edits or amendments must be made on the el [employer]/computer document * Subjective Chief complaint: confused somnolent leyva HPI: Mr. Ho is a 76-year-old man with history of de mentia, hypothyroidism, hyperlipidemia, benign prost atic hypertrophy, hypertension with coronary artery disease admitted from [facility] with reports of shortness of breath and [...] (r) Dextrose/Sodium Chloride (DEXTROSE 5%-NS) 1,000 ML .[id number] IV Trazodone HCl (DESYREL) 50 MG BEDTIME [...] no CVA tendernes s, no muscle spasm Neuro/RADIOLOGY TRANSCRIPTIONIST: disoriented, alert, face symmetrical, not answering questions [...] (Auto) (25.0 - 55.0 %) 14.1 L Hemphill % (Auto) (0.0 - 10.0 %) 6.2 Eos % (Auto) (0.0 - 5.0 %) 4.5 Baso % (Auto) (0.0 - 1.0 %) 0.7 Neut # (Auto) (1.8 - 7.7 K/mm3) 5.60 Lymph # (Auto) (1.0 - 5.0 K/mm3) 1.07 Hemphill # (Auto) (0 - 0.8 K/mm3) 0.47 [...] Zyprexa 2.5 mg PO Q6H. appreciate ps [facility] recs -Fall precautions #PUI for COVID-19 -Informed [...] 0 06/07/22 at 1601 at 1657 RPT #:[id number] END OF REPORT 2022-06-06 14:12:00-00:00 [facility] ([facility]) Nephrology Progress Note REPORT#:[id number] REPORT STATUS: Signed DATE:06/06/22 TIME: 2 PATIENT: KAYLA HO UNIT #: [id number] ROOM/BED: [address] : [birth year] AGE: 76 SEX: M ATTEND: Diogo Reynolds MD ADM AUTHOR: Lena Canela MD * ALL edits or amendments must be made on the el [employer]/computer document * Subjective Comments: events noted Objective [...] Enoxaparin Sodium (LOVENOX 30MG SYRINGE) 30 MG 1700 SUBQ (DA) Dextrose/Sodium Chloride (DEXTROSE 5%-NS) 1,000 ML .H16E60H IV Trazodone HCl (DESYREL) 50 MG BEDTIME [...] DAILY PO Multivitamins Therapeutic (THERAGRAN) 1 UDTAB D AILY PO Tamsulosin HCl (FLOMAX 0.4MG CAPSULE) 0.4 [...] MD on 0 06/06/22 at 1415 RPT #:[id number] END OF REPORT 2022-06-06 10:59:00-00:00 [facility] ([facility]) Hospitalist Progress Note REPORT#:[id number] REPORT STATUS: Signed DATE:06/06/22 TIME: 1059 PATIENT: KAYLA HO UNIT #: [id number] ROOM/BED: [address] : [birth year] AGE: 76 SEX: M ATTEND: Diogo Reynolds MD ADM AUTHOR: Evon Dorado * ALL edits or amendments must be made on the [employer] document * Subjective Chief complaint: confused somnolent leyva HPI: Mr. Ho is a 76-year-old man with history of de mentia, hypothyroidism, hyperlipidemia, benign prost atic hypertrophy, hypertension with coronary artery disease admitted from [facility] with reports of shortness of breath and cough. Review of Systems Unable to obtain due to: Related to impaired cognition Objective General VS/I O: Vital Signs: Date Time Temp Pulse Resp B/P B/P Pulse O2 O2 F low FiO2 Mean Ox Delivery Rate 06/06 0725 95 Room air 06/06 0709 [...] (DA) Dextrose/Sodium Chloride (DEXTROSE 5%-NS) 1,000 ML .Z38G00Y IV Trazodone HCl (DESYREL) 50 MG BEDTIME [...] no CVA tendernes s, no muscle spasm Neuro/RADIOLOGY TRANSCRIPTIONIST: disoriented, alert, face symmetrical, not answering questions [...] Zyprexa 2.5 mg PO Q6H. appreciate ps [facility] recs -Fall precautions #PUI for COVID-19 -Informed [...] Dorado on 0 06/06/22 at 1106 at 8487 RPT #:[id number] END OF REPORT 2022-06-05 21:43:00-00:00 [facility] ([facility]) Urology Consult Note REPORT#:[id number] REPORT STATUS: Signed DATE:06/05/22 TIME: 2142 PATIENT: KAYLA HO UNIT #: [id number] ROOM/BED: [address] : 49 AGE: 76 SEX: M ATTEND: Diogo Reynolds MD ADM AUTHOR: Fazal Mcguire MD * ALL edits or amendments must be made on the [employer] document * History of Present Illness HPI [...] Assessment Plan Consultants: psychiatry at 2144 RPT #:[id number] END OF REPORT 2022-06-05 10:29:00-00:00 [facility] ([facility] Nephrology Progress Note REPORT#:[id number] REPORT STATUS: Signed DATE:06/05/22 TIME: 1029 PATIENT: KAYLA HO UNIT #: [id number] ROOM/BED: [address] : 49 AGE: 76 SEX: M ATTEND: Diogo Reynolds MD ADM AUTHOR: Janel Rutherford MD * ALL edits or amendments must be made on the [employer] document * See Addendum Subjective Comments: Remains with hematuria. Sitter at bedside Objective General VS/I O: Vital Signs: Date Time Temp Pulse Resp B/P B/P Pulse O2 O2 F low FiO2 Mean Ox Delivery Rate 06/05 737 98.1 63 16 165/88 113.6 100 04/09 0723 98 Room air 0 21 06/05 [...] (DA) Dextrose/Sodium Chloride (DEXTROSE 5%-NS) 1,000 ML .C03E97R IV Trazodone HCl (DESYREL) 50 MG BEDTIME [...] (Auto) (25.0 - 55.0 %) 13.8 L Hemphill % (Auto) (0.0 - 10.0 %) 8.5 Eos % (Auto) (0.0 - 5.0 %) 5.3 H Baso % (Auto) (0.0 - 1.0 %) 0.3 Neut # (Auto) (1.8 - 7.7 K/mm3) 5.23 Lymph # (Auto) (1.0 - 5.0 K/mm3) 1.01 Hemphill # (Auto) (0 - 0.8 K/mm3) 0.62 [...] Janel Rutherford MD on at 1102 RPT #:[id number] END OF REPORT 2022-06-05 07:43:00-00:00 [facility] ([facility]) Hospitalist Progress Note REPORT#:[id number] REPORT STATUS: Signed DATE:06/05/22 TIME: 07 PATIENT: KAYLA HO UNIT #: [id number] ROOM/BED: [address] : 49 AGE: 76 SEX: M ATTEND: Diogo Reynolds MD ADM AUTHOR: Adonis Womack NP * ALL edits or amendments must be made on the [employer]/computer document * Subjective Chief complaint: confused somnolent sitter at bedside leyva HPI: Mr. Ho is a 76-year-old man with history of de mentia, hypothyroidism, hyperlipidemia, benign prost atic hypertrophy, hypertension with coronary artery disease admitted from [facility] with reports of shortness of breath and [...] no CVA tendernes s, no muscle spasm Neuro/RADIOLOGY TRANSCRIPTIONIST: disoriented, alert, face symmetrical, not answering questions [...] (Auto) (25.0 - 55.0 %) 13.8 L Hemphill % (Auto) (0.0 - 10.0 %) 8.5 Eos % (Auto) (0.0 - 5.0 %) 5.3 H Baso % (Auto) (0.0 - 1.0 %) 0.3 Neut # (Auto) (1.8 - 7.7 K/mm3) 5.23 Lymph # (Auto) (1.0 - 5.0 K/mm3) 1.01 Hemphill # (Auto) (0 - 0.8 K/mm3) 0.62 [...] Zyprexa 2.5 mg PO Q6H. appreciate ps [facility] recs -Fall precautions #PUI for COVID-19 -Informed [...] (full cod e) Electronically Signed by Adonis Womakc TRAFFIC CLERK on 11/19 at 1913 at 1105 RPT #:[id number] END OF REPORT 2022-06-04 09:20:00-00:00 [facility] ([facility]) Nephrology Progress Note REPORT#:[id number] REPORT STATUS: Signed DATE:06/04/22 TIME: 919 PATIENT: KAYLA HO UNIT #: [id number] [address] AGE: 76 SEX: M ATTEND: Diogo Reynolds MD ADM AUTHOR: Janel Rutherford MD * ALL edits or amendments must be made on the el CMP [employer]/computer document * Subjective Comments: Confused, agitated. Sitter [...] SUBQ Dextrose/Sodium Chloride (DEXTROSE 5%-NS) 1,000 ML .[id number] IV Trazodone HCl (DESYREL) 50 MG BEDTIME [...] pH (5.0 - 8.0) 5.5 Ur Specific [place] (1.001 - 1.035) 1.017 Urine Protein (NEGATIVE mg/dL) NEGATIVE Urine Glucose (UA) (NEGATIVE mg/dL) NEGATIVE Urine Ketones (NEGATIVE mg/dL) NEGATIVE Urine Blood (NEGATIVE mg/dL) 0.06 mg/dL (1+) H Urine Nitrite (NEGATIVE) NEGATIVE Urine Bilirubin (NEGATIVE mg/dL) NEGATIVE Urine Urobilinogen (NEGATIVE mg/dL) Normal Ur Leukocyte Esterase (NEGATIVE Gilma/uL) NEGATI VE Urine RBC (0 - 5 #/HPF) 11-20 H Urine WBC (0 - 5 per HPF) 0-5 Ur Epithelial Cells (FEW per HPF) None seen Urine Bacteria (NONE #/HPF) NONE SEEN Radiology data: Recent Impressions: ULTRASOUND - US RETRO [facility]TD 06/03 1704 Report Impression - Status: SIGNED Entered: 06/03/2022 1747 IMPRESSION: The right kidney is surgically absent. There is compensatory hypertrophy of the left ki dney. Otherwise the left kidney is sonographically unremarkable. Location: [facility] Impression By: [email or web address] - Sai Redman MD [...] Janel Rutherford MD on at 1005 RPT #:[id number] END OF REPORT 2022-06-04 09:02:00-00:00 [facility] ([facility]) Hospitalist Progress Note REPORT#:[id number] REPORT STATUS: Signed DATE:06/04/22 TIME: 901 PATIENT: KAYLA HO UNIT #: [id number] ROOM/BED: [address] : 47 AGE: 76 SEX: M ATTEND: Diogo Reynolds MD ADM AUTHOR: Adonis Womack TRAFFIC CLERK * ALL edits or amendments must be made on the [employer]/computer document * Subjective Chief complaint: confused sitter at bedside not eating much urine output noted Crea 1.3 HPI: Mr. Ho is a 76-year-old man with history of de mentia, hypothyroidism, hyperlipidemia, benign prost atic hypertrophy, hypertension with coronary artery disease admitted from [facility] with reports of shortness of breath and [...] no CVA tendernes s, no muscle spasm Neuro/RADIOLOGY TRANSCRIPTIONIST: disoriented, alert, face symmetrical, not answering questions [...] data: Recent Impressions: ULTRASOUND - US RETRO [facility] 06/03 1704 Report Impression - Status: SIGNED Entered: 06/03/2022 3858 IMPRESSION: The right kidney is surgically absent. There is compensatory hypertrophy of the left ki dney. Otherwise the left kidney is sonographically unremarkable. Location: [facility] Impression By: [email or web address] - Sai Redman MD [...] Zyprexa 2.5 mg PO Q6H. appreciate ps [facility] recs -Fall precautions #PUI for COVID-19 -Informed [...] cod e) Electronically Signed by Adonis Womack TRAFFIC CLERK on 10/19 at 1245 at 1330 RPT #:[id number] END OF REPORT 2022-06-03 12:16:00-00:00 [facility] ([facility]) Clinical Note REPORT#:[id number] REPORT STATUS: Signed DATE:06/03/22 TIME: 1216 PATIENT: KAYLA HO UNIT #: [id number] ROOM/BED: [address] : 47 AGE: 76 SEX: M ATTEND: Diogo Reynolds MD ADM AUTHOR: Lena Canela MD * ALL edits or amendments must be made on the el ectronic/computer document * Clinical Note Note: Renal Consult dictated Thank You Electronically Signed by Lena Canela MD on 0 06/03/22 at 1217 RPT #:[id number] END OF REPORT 2022-06-03 12:16:00-00:00 [id number] [facility] PATIENT NAME: KAYLA HO ADMIT DATE: 05/25/22 ACCOUNT NO: [id number] ROOM NO: [facility] AGE: 76 REPORT TYPE: CONSULTATION REPORT SEX: [...] breath. He was sent here from his skilled nursing. I am being asked to see the [...] seems to be PATIENT NAME: KAYLA HO 10 distended. The patient is wearing a diaper. [...] Date Transcribed: 06/03/2022 19:45:53 SUNNI/FRANCOIS Receipt ID: [id number] Authenticated by Lena Canela MD On 06/16 04:09:06 PM at 0409 PATIENT NAME: KAYLA HO 0 2022-06-03 09:49:00-00:00 [facility] ([facility] Hospitalist Progress Note REPORT#:[id number] REPORT STATUS: Signed DATE:06/03/22 TIME: 948 PATIENT: KAYLA HO UNIT #: [id number] ROOM/BED: [address] : 47 AGE: 76 SEX: M ATTEND: Cintia Reynolds MD ADM AUTHOR: Adonis Womack NP * ALL edits or amendments must be made on the Sp[employer]FM/computer document * Subjective Chief complaint: confused sitter at bedside on RA poor PO intake HPI: Mr. Ho is a 76-year-old man with history of de mentia, hypothyroidism, hyperlipidemia, benign prost atic hypertrophy, hypertension with coronary artery disease admitted from [facility] with reports of shortness of breath and [...] no CVA tendernes s, no muscle spasm Neuro/RADIOLOGY TRANSCRIPTIONIST: disoriented, alert, face symmetrical, not answering questions [...] (Auto) (25.0 - 55.0 %) 6.3 L [place] % (Auto) (0.0 - 10.0 %) 6.9 Eos % (Auto) (0.0 - 5.0 %) 1.3 Baso % (Auto) (0.0 - 1.0 %) 0.2 Neut # (Auto) (1.8 - 7.7 K/mm3) 10.49 H Lymph # (Auto) (1.0 - 5.0 K/mm3) 0.78 L [place] # (Auto) (0 - 0.8 K/mm3) 0.86 [...] Robitussin -05/28: Initial BC with suspected contamination. Repeat collection. -BC x2, repeat: No growth #Hypertension [...] Zyprexa 2.5 mg PO Q6H. appreciate ps [facility] recs -Fall precautions #PUI for COVID-19 -Informed [...] PPX: Lovenox CM consult for placement Quality: [facility] Crit Care VTE Prophylaxis VTE prophylaxis initiated: [...] on 09/18 at 1208 at 1708 RPT #:[id number] END OF REPORT 2022-06-02 11:19:00-00:00 [facility] ([facility]) Hospitalist Progress Note REPORT#:[id number] REPORT STATUS: Signed DATE:06/02/22 TIME: 1119 PATIENT: KAYLA HO UNIT #: [id number] ROOM/BED: [address] : 47 AGE: 76 SEX: M ATTEND: Diogo Reynolds MD ADM AUTHOR: Adonis Womack NP * ALL edits or amendments must be made on the el [employer]/computer document * Subjective Chief complaint: confused somnolent sitter at bedside on RA HPI: Mr. Ho is a 76-year-old man with history of de mentia, hypothyroidism, hyperlipidemia, benign prost atic hypertrophy, hypertension with coronary artery disease admitted from [facility] with reports of shortness of breath and cough. Review of Systems All systems rev neg: except as noted Objective General VS/I O: Vital Signs: Date Time Temp Pulse Resp B/P B/P Pulse O2 O2 Flow FiO2 Mean Ox Delivery Rate 06/02 1121 [...] no CVA tendernes s, no muscle spasm Neuro/RADIOLOGY TRANSCRIPTIONIST: disoriented, alert, face symmetrical, not answering questions [...] Zyprexa 2.5 mg PO Q6H. appreciate ps [facility] recs -Fall precautions #PUI for COVID-19 -Informed [...] on 08/19 at 1228 at 1708 RPT #:[id number] END OF REPORT 2022-06-01 09:49:00-00:00 [facility] ([facility]) Hospitalist Progress Note REPORT#:[id number] REPORT STATUS: Signed DATE:06/01/22 TIME: 948 PATIENT: KAYLA HO UNIT #: [id number] ROOM/BED: [address] : 47 AGE: 76 SEX: M ATTEND: Diogo Reynolds MD ADM AUTHOR: Adonis Womack NP * ALL edits or amendments must be made on the Sp[employer]/computer document * Subjective Chief complaint: confused sitter at bedside on RA HPI: Mr. Ho is a 76-year-old man with history of de mentia, hypothyroidism, hyperlipidemia, benign prost atic hypertrophy, hypertension with coronary artery disease admitted from [facility] with reports of shortness of breath and cough. Review of Systems Unable to obtain due to: ams Objective General VS/I O: Vital Signs: Date Time Temp Pulse Resp B/P B/P Pulse O2 O2 Flow FiO2 Mean Ox Delivery Rate 06/01 1016 [...] no CVA tendernes s, no muscle spasm Neuro/RADIOLOGY TRANSCRIPTIONIST: disoriented, alert, face symmetrical, not answering questions [...] Negative Full code by default NOK: Spouse, Gioavnni Ho, PPX: Lovenox CM consult for placement [...] on 07/19 at 1246 at 0834 RPT #:[id number] END OF REPORT 2022-05-31 08:20:00-00:00 [facility] ([facility]) Hospitalist Progress Note REPORT#:[id number] REPORT STATUS: Signed DATE:05/31/22 TIME: 819 PATIENT: KAYLA HO UNIT #: [id number] ROOM/BED: [address] : 47 AGE: 76 SEX: M ATTEND: Diogo Reynolds MD ADM AUTHOR: Evon Dorado * ALL edits or amendments must be made on the Sp[employer]FM/computer document * Subjective Chief complaint: Shortness of breath HPI: Mr. Ho is a 76-year-old man with history of de mentia, hypothyroidism, hyperlipidemia, benign prost atic hypertrophy, hypertension with coronary artery disease admitted from [facility] with reports of shortness of breath and [...] 2354 97.7 66 16 155/86 109.0 95 / 2333 97.7 72 18 160/94 115.9 95 Room air 05/30 2245 95 Room air 21 05/30 2132 98.1 74 18 147/87 106.8 95 / 1525 98.1 70 20 103/66 78.3 94 Room air 24 hour I O ending at 0700: 04 0700 04/ 1900 Intake Total 900 Output Total Balance [...] no CVA tendernes s, no muscle spasm Neuro/RADIOLOGY TRANSCRIPTIONIST: alert, face symmetrical, not answerin g questions [...] mg PO Q6H. 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 ([facility]) Hospitalist Progress Note REPORT#:[id number] REPORT STATUS: Signed DATE:05/30/22 TIME: 815 PATIENT: KAYLA HO UNIT #: [id number] ROOM/BED: [address] : 47 AGE: 76 SEX: M ATTEND: Diogo Reynolds MD ADM AUTHOR: Evon oDrado * ALL edits or amendments must be made on the el CMP [employer]/computer document * Subjective Chief complaint: Shortness of breath HPI: Mr. Ho is a 76-year-old man with history of de mentia, hypothyroidism, hyperlipidemia, benign prost atic hypertrophy, hypertension with coronary artery disease admitted from [facility] with reports of shortness of breath and cough. Review of Systems All systems rev neg: except as noted Objective General VS/I O: Vital Signs: Date Time Temp Pulse Resp B/P B/P Pulse O2 O2 F low FiO2 Mean Ox Delivery Rate 05/30 0828 95 Room air 21 04/ 0703 98.4 58 20 122/71 87.7 95 Room air / 0313 98.4 61 18 126/85 98.5 99 [...] no CVA tendernes s, no muscle spasm Neuro/RADIOLOGY TRANSCRIPTIONIST: alert, face symmetrical, not answerin g questions [...] (Auto) (25.0 - 55.0 %) 17.2 L [place] % (Auto) (0.0 - 10.0 %) 9.5 Eos % (Auto) (0.0 - 5.0 %) 1.1 Baso % (Auto) (0.0 - 1.0 %) 0.3 Neut # (Auto) (1.8 - 7.7 K/mm3) 5.63 Lymph # (Auto) (1.0 - 5.0 K/mm3) 1.36 Hem[place]ill # (Auto) (0 - 0.8 K/mm3) 0.75 [...] mg PO Q6H. 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 CM consult return to [facility] or prior outpatient residence. Electronically Signed by Evon Dorado on 0 05/30/22 at 1012 at 1604 RPT #:[id number] END OF REPORT 2022-05-29 07:26:00-00:00 [facility] ([facility]) Hospitalist Progress Note REPORT#:[id number] REPORT STATUS: Signed DATE:05/29/22 TIME: 725 PATIENT: KAYLA HO UNIT #: [id number] ROOM/BED: [address] : 47 AGE: 76 SEX: M ATTEND: Diogo Reynolds MD ADM AUTHOR: Evon Dorado * ALL edits or amendments must be made on the [employer]/computer document * Subjective Chief complaint: Shortness of breath HPI: Mr. Ho is a 76-year-old man with history of de mentia, hypothyroidism, hyperlipidemia, benign prost atic hypertrophy, hypertension with coronary artery disease admitted from [facility] with reports of shortness of breath and [...] 75 16 168/88 114.5 97 Nasal cannula 05/29 2231 Nasal 2 cannula 05/28 2008 97.7 65 [...] no CVA tendernes s, no muscle spasm Neuro/RADIOLOGY TRANSCRIPTIONIST: alert, face symmetrical, not answerin g questions [...] mg PO Q6H. Ativan 1 mg I SALES REPRESENTATIVE W[employer] ROPE Q4H -Fall precautions #PUI for COVID-19 -Informed [...] 0 05/29/22 at 1243 at 1730 RPT #:[id number] END OF REPORT 2022-05-28 07:47:00-00:00 [facility] ([facility]) Hospitalist Progress Note REPORT#:[id number] REPORT STATUS: Signed DATE:05/28/22 TIME: 746 PATIENT: KAYLA HO UNIT #: [id number] ROOM/BED: [address] : 47 AGE: 76 SEX: M ATTEND: Diogo Reynolds MD ADM AUTHOR: Evon Dorado * ALL edits or amendments must be made on the Sp[employer]/computer document * Subjective Chief complaint: Shortness of breath HPI: Mr. Ho is a 76-year-old man with history of de mentia, hypothyroidism, hyperlipidemia, benign prost atic hypertrophy, hypertension with coronary artery disease admitted from [facility] with reports of shortness of breath and [...] no CVA tendernes s, no muscle spasm Neuro/RADIOLOGY TRANSCRIPTIONIST: alert, face symmetrical, not answerin g questions [...] (Auto) (25.0 - 55.0 %) 8.9 L [place] % (Auto) (0.0 - 10.0 %) 8.5 Eos % (Auto) (0.0 - 5.0 %) 0.1 Baso % (Auto) (0.0 - 1.0 %) 0.3 Neut # (Auto) (1.8 - 7.7 K/mm3) 5.80 Lymph # (Auto) (1.0 - 5.0 K/mm3) 0.63 L [place] # (Auto) (0 - 0.8 K/mm3) 0.60 [...] mg PO Q6H. Ativan 1 mg I SALES REPRESENTATIVE WIRE ROPE Q4H -Fall precautions Full code by default [...] 0 05/28/22 at 1025 at 1536 RPT #:[id number] END OF REPORT 2022-05-27 11:06:00-00:00 [facility] ([facility]) Hospitalist Progress Note REPORT#:[id number] REPORT STATUS: Signed DATE:05/27/22 TIME: 1106 PATIENT: KAYLA HO UNIT #: [id number] ROOM/BED: [place] [address] : 47 AGE: 76 SEX: M ATTEND: Diogo Reynolds MD ADM AUTHOR: Evon Dorado * ALL edits or amendments must be made on the el ectronic/computer document * Subjective Chief complaint: Shortness of breath HPI: Mr. Ho is a 76-year-old man with history of de mentia, hypothyroidism, hyperlipidemia, benign prost atic hypertrophy, hypertension with coronary artery disease admitted from [facility] with reports of shortness of breath and cough. Review of Systems All systems rev neg: except as noted Objective General VS/I O: Vital Signs: Date Time Temp Pulse Resp B/P B/P Pulse O2 O2 Flow FiO2 Mean Ox Delivery Rate 05/27 0840 [...] no CVA tendernes s, no muscle spasm Neuro/RADIOLOGY TRANSCRIPTIONIST: alert, face symmetrical, not answerin g questions [...] 0 05/27/22 at 1119 at 1621 RPT #:[id number] END OF REPORT 2022-05-26 13:19:00-00:00 [facility] ([facility]) Hospitalist Progress Note REPORT#:[id number] REPORT STATUS: Signed DATE:05/26/22 TIME: 1319 PATIENT: KAYLA HO UNIT #: [id number] ROOM/BED: [place] [address] : 47 AGE: 76 SEX: M ATTEND: Diogo Reynolds MD ADM AUTHOR: Evon Dorado * ALL edits or amendments must be made on the Sp[employer] document * Subjective Chief complaint: Shortness of breath HPI: Mr. Ho is a 76-year-old man with history of de mentia, hypothyroidism, hyperlipidemia, benign prost atic hypertrophy, hypertension with coronary artery disease admitted from [facility] with reports of shortness of breath and [...] no CVA tendernes s, no muscle spasm Neuro/RADIOLOGY TRANSCRIPTIONIST: alert, face symmetrical, not answerin g questions [...] evaluation required prior to acceptance back to [facility]. Psychiatry consulted. Electronically Signed by Evon Dorado on 0 05/26/22 at 1322 at 7005 RPT #:[id number] END OF REPORT 2022-05-25 10:24:00-00:00 [facility] ([facility]) Hospitalist Progress Note REPORT#:[id number] REPORT STATUS: Signed DATE:05/25/22 TIME: 1024 PATIENT: KAYLA HO UNIT #: [id number] ROOM/BED: [place] [address] : 47 AGE: 76 SEX: M ATTEND: Diogo Reynolds MD ADM AUTHOR: Evon Dorado * ALL edits or amendments must be made on the Sp[employer]/computer document * Subjective Chief complaint: Shortness of breath HPI: Mr. Ho is a 76-year-old man with history of de mentia, hypothyroidism, hyperlipidemia, benign prost atic hypertrophy, hypertension with coronary artery disease admitted from [facility] with reports of shortness of breath and [...] PO Acetaminophen (TYLENOL EXTRA STRENGTH) 500 MG Q 6H PRN PRN PO Albuterol Sulfate (ALBUTEROL SULFATE) [...] no CVA tendernes s, no muscle spasm Neuro/RADIOLOGY TRANSCRIPTIONIST: alert, face symmetrical, not answerin g questions [...] (Auto) (25.0 - 55.0 %) 4.9 L [place] % (Auto) (0.0 - 10.0 %) 5.6 Eos % (Auto) (0.0 - 5.0 %) 3.7 Baso % (Auto) (0.0 - 1.0 %) 0.5 Neut # (Auto) (1.8 - 7.7 K/mm3) 7.26 Lymph # (Auto) (1.0 - 5.0 K/mm3) 0.42 L [place] # (Auto) (0 - 0.8 K/mm3) 0.48 [...] pH (5.0 - 8.0) 6.0 Ur Specific [place] (1.001 - 1.035) 1.022 Urine Protein (NEGATIVE [...] congestion. No patho logic adenopathy. Impression By: [email or web address] - Renato Padilla M.D. [...] Dorado on 0 05/25/22 at 1122 at 5809 RPT #:[id number] END OF REPORT 2022-05-25 04:31:00-00:00 [facility] ([facility]) Hospitalist History Physical REPORT#:[id number] REPORT STATUS: Signed DATE:05/25/22 TIME: 043 PATIENT: KAYLA HO UNIT #: [id number] ROOM/BED: [address] : 47 AGE: 76 SEX: M ATTEND: Yessenia Osborn MD ADM AUTHOR: Klaudia Osborn MD * ALL edits or amendments must be made on the el CMP [employer]/computer document * History of Present Illness HPI [...] artery disease brought into the ER from [facility] with reports of sh ortness of breath [...] 0043 DC 04/28 9 (ZITHROMAX) IV 05/25 014 0123 Sodium Chloride 250 ML (SODIUM CHLORIDE 0.9%) Ceftriaxone Sodium 1,000 MG X1ED STA 05/25 0043 DC 05/25 (ROCEPHIN) IV 05/25 0045 0123 Sodium Chloride 10 ML (SODIUM CHLORIDE 0.9% PF) Autonomic Drugs Sig/Fletcher Start time Last Medication Dose Route Stop Time Status Admin Donepezil HCl 10 MG DAILY 05/25 0900 AC (ARICEPT 10MG TAB) PO 06/24 0859 Blood Formation,Coagulation Sig/Fletcher Start time Last Medication Dose Route Stop Time Status Admin Clopidogrel Bisulfate 75 MG DAILY 05/25 09 AC (PLAVIX 75MG TAB) PO 06/24 0859 Cardiovascular Drugs Sig/Fletcher Start time Last Medication Dose Route Stop Time Status Admin Atorvastatin Calcium 80 MG DAILY 05/25 09 AC (LIPITOR 40MG TAB) PO 06/24 0859 Carvedilol 12.5 MG BID 05/25 899 AC (COREG 12.5MG TAB) PO 06/24 08 Fenofibrate 145 MG DAILY 05/25 0900 AC PO 06/24 0859 Tamsulosin HCl 0.4 MG DAILY 05/25 09 UNV (FLOMAX 0.4MG PO 06/24 0859 CAPSULE) Central Nervous System Agents Sig/Fletcher Start time Last Medication Dose Route Stop Time Status Admin Aspirin 81 MG DAILY 05/25 09 AC (ECOTRIN) PO 06/24 08 Escitalopram Oxalate 20 MG DAILY 05/25 899 UNV r (LEXAPRO 20MG TAB PO 06/24 0859 (NF)) Acetaminophen 1,000 MG X1ED STA 05/25 0319 DC 05/25 (TYLENOL EXTRA PO 05/25 0320 0335 [...] Status Admin Multivitamins 1 UDTAB DAILY 05/25 09 UNV Therapeutic PO 06/24 0859 (THERAGRAN) Allergies: [...] no CVA tendernes s, no muscle spasm Neuro/RADIOLOGY TRANSCRIPTIONIST: alert, face symmetrical, not answerin g questions [...] (Auto) (25.0 - 55.0 %) 4.9 L [place] % (Auto) (0.0 - 10.0 %) 5.6 Eos % (Auto) (0.0 - 5.0 %) 3.7 Baso % (Auto) (0.0 - 1.0 %) 0.5 Neut # (Auto) (1.8 - 7.7 K/mm3) 7.26 Lymph # (Auto) (1.0 - 5.0 K/mm3) 0.42 L [place] # (Auto) (0 - 0.8 K/mm3) 0.48 [...] pH (5.0 - 8.0) 6.0 Ur Specific [place] (1.001 - 1.035) 1.022 Urine Protein (NEGATIVE [...] cough Nebulized treatments as needed for shortness o f breath #Hypertension with coronary artery disease Resume [...] Klaudia Osborn MD on at 0446 RPT #:[id number] END OF REPORT 2022-05-25 04:18:00-00:00 [facility] ([facility]) EMERGENCY PROVIDER REPORT REPORT#:[id number] REPORT STATUS: Signed DATE:05/25/22 TIME: 417 PATIENT: KAYLA HO UNIT #: [id number] ROOM/BED: [address] AGE: 76 SEX: M PCP PHYS: No Primary or Family Ph ysician SERVICE AUTHOR: Terry Yao MD * ALL edits or amendments must be made on the el [employer]/computer document * HPI-Dyspnea/Wheezing Free Text HPI Notes Free Text HPI Notes ptpresents to ED with report ed sob/cough from skilled nursing. present for several days steadily worsening. General [...] 164/82 05/25 36 B/P Mean 109 05/25 003 O2 Delivery Room air 05/25 36 Temp 38.3 05/25 36 Pulse 92 05/25 36 Resp 17 05/25 36 Last Documented: Result Date Time Pulse Ox 95 05/25 0333 B/P 155/70 05/25 0333 B/P Mean 98 05/25 0333 O2 Delivery Room air 05/25 033 Pulse 86 05/25 033 Resp 18 05/25 332 Temp 38.3 05/25 003 Review of Vital Signs Reviewed Basic Physical Exam Basic PE HEAD: Atraumatic/NC , EYES: PERRL, conj clear, ENT: Membranes moist, ABD : Soft/non-tender, EXT: No g ross abnormality, SKIN: No rashes, warm/dry, NEURO: gross movement NL Focused PE Resp/Chest Respiratory/Chest Atraumatic, Breath sounds = b ilat Interpretation Diagnostics Lab Results Interpretation Results Laboratory Tests 05/25/22 0105: [Embedded Image Not Available] Laboratory Tests: 05/25 0105 0105 Chemistry Sodium (136 - [...] (Auto) (25.0 - 55.0 %) 4.9 L Hem[place] % (Auto) (0.0 - 10.0 %) 5.6 Eos % (Auto) (0.0 - 5.0 %) 3.7 Baso % (Auto) (0.0 - 1.0 %) 0.5 Neut # (Auto) (1.8 - 7.7 K/mm3) 7.26 Lymph # (Auto) (1.0 - 5.0 K/mm3) 0.42 L [place] # (Auto) (0 - 0.8 K/mm3) 0.48 [...] pH (5.0 - 8.0) 6.0 Ur Specific [place] (1.001 - 1.035) 1.022 Urine Protein (NEGATIVE [...] Impression By: [email or web address] - Mamie la M.D. Lab Imaging Statement [...] or ultimate patient disposition. If available patient campaign worker al records were reviewed by myself and [...] 1,000 MG X1ED STA 05/25 0319 DC 05/25 PO 05/25 0320 0335 Electrolytic, Caloric, And Cori Sig/Fletcher Start time Last Medication Dose Route Stop Time Status Admin Sodium Chloride 2,000 ML X1ED STA 05/25 0042 DC 05/25 IV 05/25 0043 0124 Patient Discharge Departure Vital Signs/Condition Vital Signs First Documented: Result Date Time Pulse Ox 95 05/25 003 B/P 164/82 05/25 003 B/P Mean 109 05/25 36 O2 Delivery Room air 05/25 36 Temp 38.3 05/25 36 Pulse 92 05/25 003 Resp 17 05/25 36 Last Documented: Result Date Time Pulse Ox 95 05/25 332 B/P 155/70 05/25 332 B/P Mean 98 05/25 332 O2 Delivery Room air 05/25 332 Pulse 86 05/25 0333 Resp 18 05/25 332 Temp 38.3 05/25 0037 All vital signs available at the time [...] MD on 0 06/29/22 at 0712 RPT #:[id number] END OF REPORT 2022-05-16 20:24:00-00:00 [id number] [address] PATIENT NAME: KAYLA HO ADMIT DATE: 05/16/22 ACCOUNT NO: [id number] ROOM NO: AGE: 76 REPORT TYPE: eELECTROCARDIOGRAM SEX: M ADMITTING PHYSICIAN: ATTENDING PHYSICIAN: Order: [id number] Test Reason : MED CLEAR Test Date/Time [...] by:PAMELA HE MD at 2108 PATIENT NAME: CORINNA HOFAUSTO 8
[2022-09-14 09:19] LABS: Absolute Lymphocytes (CBC) 0.9 K/uL (0.7-4.9); Hematocrit 36.4 % (39.6-49.0); Lymphocytes % 11.8 % (15.3-44.8); MCV 90.6 fL (80-100); MPV 8.3 fL (7.6-11.3); RBC Red Blood Cell Count 4.02 M/uL (4.33-5.43)
[2022-09-14] MEDS ORDERED: NA CHLORIDE 0.9% 1,000 ML ONE (09:22)
--- NOTE | 2022-09-14 09:27 | RAD REPORT ---
EXAM DESCRIPTION: CT - Head Brain Wo Cont - 09/14/2022 9:18 am CLINICAL HISTORY: ams Headache, drowsiness, CVA symptomology COMPARISON: Head Brain Wo Cont dated 08/08/2022; Head Brain Wo Cont dated 08/06/2022; Brain Wo Cont da hanna 08/09/2022 TECHNIQUE: All CT scans are performed using dose optimization technique as appropriate and may inclu de automated exposure control or mA/KV adjustment according to patient size. FINDINGS: No intracranial hemorrhage, hydrocephalus or extra-axial fluid collection.Mild generalized brain atrophy.No areas of brain edema or evidence of midline shift. Bilateral mastoid effusions noted. Paranasal sinuses are clear. The calvarium is intact. IMPRESSION: No acute intracranial abnormality. Bilateral mastoid effusion.
--- NOTE | 2022-09-14 09:35 | RAD REPORT ---
EXAM DESCRIPTION: RAD - Chest Single View - 09/14/2022 9:26 am CLINICAL HISTORY: ams Chest pain. COMPARISON: Chest Single View dated 08/08/2022; Chest Single View dated 08/06/2022; Chest Pa And Lat ( 2 Views) dated 08/20/2021; Chest Pa And Lat (2 Views) dated 03/08/2021 FINDINGS: Portable technique limits examination quality. The lungs are underinflated resulting in vascular prominence. . The heart is enlarged mildly. No disp laced fractures. IMPRESSION: No acute intrathoracic process suspected. Underinflated lungs.
[2022-09-14 09:49] LABS: Albumin 3.3 g/dL (3.4-5.0); Bilirubin Direct 0.2 mg/dL (0-0.2); Bilirubin Indirect, Calculated 0.5 mg/dL (0.2-0.8); Bilirubin Total 0.7 mg/dL (0.2-1.0); Potassium 3.2 mEq/L (3.5-5.1); Protein, Total 6.8 g/dL (6.4-8.2); Thyroid Stimulating Hormone 3.4 uIU/mL (0.358-3.740); Troponin High Sensitivity 25.2 pg/mL (<58.9)
--- NOTE | 2022-09-14 12:59 | EDPHYS ---
Physician Documentation [facility] Name: Shea Campbell Age: 77 yrs Sex: Male : 1945 Arrival Date: 09/14/2022 Time: 08:45 Bed 8 Private MD: ED Physician Estrada Curtis HPI: 09/14 12:59 This 77 yrs old Male presents to ER via EMS with complaints of Altered mental status. rt 12:59 Patient with history of Alzheimer's disease presents to the ED from residential for an rt episode of reported unresponsiveness. EMS was called, patient was barely responsive to baseline at time of the arrival. The patient denies any complaints at this time but does seem to be somewhat confused. Believe this is his baseline. No other reported complaints, symptoms are mild in severity, no other aggravating alleviating factors. Historical: - Allergies: 08:54 No Known Allergies; ko1 - Home Meds: 08:54 Aricept 10 mg Oral tablet [Active]; atorvastatin 80 mg Oral tab 1 tab once daily ko1 [Active]; carvedilol 12.5 mg Oral tab 1 tab 2 times per day [Active]; bupropion HCl 150 mg Oral Tb24 1 tab once daily [Active]; clopidogrel 75 mg Oral tab 1 tab once daily [Active]; Clonazepam Oral [Active]; escitalopram oxalate 20 mg Oral tab once daily [Active]; fenofibrate 145 mg daily Oral [Active]; donepezil 10 mg Oral tab 1 tab twice a day [Active]; finasteride 5 mg Oral tablet [Active]; Ecotrin 325 mg Oral TbEC once daily [Active]; Flomax Oral [Active]; Levoxyl 25 mcg Oral tab 1 tab once daily [Active]; Magnesium Oxide Oral [Active]; Simeon Red [Active]; memantine 10 mg Oral tab 1 tab 2 times per day [Active]; omeprazole 20 mg Oral TbEC daily [Active]; - PMHx: 08:54 Alzheimer's disease; depressive disorder; BPH; Hypertension; Hyperlipidemia; VASCULAR ko1 DEMENTIA; Thyroid problem; - Immunization history:: Adult Immunizations unknown. - Social history:: Smoking status: Patient denies any tobacco usage or history of. The patient lives in a residential. - Family history:: not pertinent. ROS: 12:59 Unable to obtain ROS due to baseline dementia. rt Exam: 12:59 Constitutional: This is a well developed, well nourished patient who is awake, alert, rt and in no acute distress. Head/Face: Normocephalic, atraumatic. Chest/axilla: Normal chest wall appearance and motion. Nontender with no deformity. No lesions are appreciated. Cardiovascular: Regular rate and rhythm with a normal S1 and S2. No gallops, murmurs, or rubs. Normal PMI, no JVD. No pulse deficits. Respiratory: Lungs have equal breath sounds bilaterally, clear to auscultation and percussion. No rales, rhonchi or wheezes noted. No increased work of breathing, no retractions or nasal flaring. Abdomen/GI: Soft, non-tender, with normal bowel sounds. No distension or tympany. No guarding or rebound. No evidence of tenderness throughout. Skin: Warm, dry with normal turgor. Normal color with no rashes, no lesions, and no evidence of cellulitis. MS/ Extremity: Pulses equal, no cyanosis. Neurovascular intact. Full, normal range of motion. 12:59 ECG was reviewed by the Attending Physician. Vital Signs: 08:50 BP 158 / 93; Pulse 67; Resp 14; Temp 98.1(T); Pulse Ox 96% ; ko1 10:31 BP 164 / 86; Pulse 71; Resp 18; Pulse Ox 99% ; ko1 11:16 BP 176 / 91; Pulse 72; Resp 18; Pulse Ox 99% ; ko1 12:49 BP 168 / 88; Pulse 74; Resp 14; Pulse Ox 98% ; ko1 MDM: 08:56 Patient medically screened. rt 12:59 Differential Diagnosis Dysrhythmia, electrolyte disturbance, sepsis, renal failure, rt dementia. Data reviewed: vital signs, nurses notes, lab test result(s), EKG, radiologic studies. Consideration of Admission/Observation Escalation of care including admission/observation considered. Independent interpretation of the following test(s) in the Emergency Department CT Scan: My interpretation is No hemorrhage seen on interpretation of CT scan images. Counseling: I had a detailed discussion with the patient and/or guardian regarding: the historical points, exam findings, and any diagnostic results supporting the discharge/admit diagnosis, lab results, radiology results, the need for outpatient follow up. 09/14 09:02 Order name: Basic Metabolic Panel; Complete Time: 10:26 rt 09/14 09:02 Order name: CBC with Diff; Complete Time: 09:36 rt 09/14 09:02 Order name: LFT's; Complete Time: 10:26 rt 09/14 09:02 Order name: Magnesium; Complete Time: 10:26 rt 09/14 09:02 Order name: Troponin HS; Complete Time: 10:26 rt 09/14 09:02 Order name: TSH; Complete Time: 10: rt 09/14 09:02 Order name: XRAY Chest (1 view); Complete Time: 09:36 rt 09/14 09:02 Order name: CT Head Brain wo Cont; Complete Time: 09:36 rt 09/14 09:02 Order name: EKG; Complete Time: 09:03 rt 09/14 09:02 Order name: Cardiac monitoring; Complete Time: 09:04 rt 09/14 09:02 Order name: IV Saline Lock; Complete Time: 09:11 rt 09/14 09:02 Order name: Labs collected and sent; Complete Time: 09:11 rt 09/14 09:02 Order name: O2 Per Protocol; Complete Time: 09:04 rt 09/14 09:02 Order name: O2 Sat Monitoring; Complete Time: 09:04 rt EC:59 Rate is 66 beats/min. Rhythm is regular, Normal Sinus Rhythm with No ectopy. QRS [place] rt is Normal. HI interval is normal. QRS interval is normal. QT interval is normal. No Q waves. No ST changes noted. Interpreted by me. Administered Medications: 09:29 Drug: NS 0.9% IV 1000 ml Route: IV; Rate: 1 bolus; Site: right antecubital; ko1 10:30 Follow up: Response: No adverse reaction; IV Status: Completed infusion; IV Intake: ko1 1000ml Disposition Summary: 09/14/22 12:58 Discharge Ordered Location: Home rt Problem: new rt Symptoms: are resolved rt Condition: Stable rt Diagnosis - Confusion rt Followup: rt - With: Private Physician - When: 2 - 3 days - Reason: Discharge Instructions: - Discharge Summary Sheet rt - Confusion rt Forms: - Medication Reconciliation Form rt - Thank You Letter rt - Antibiotic Education rt - Prescription Opioid Use rt - Patient Portal Instructions rt Signatures: Dispatcher [employer] [place] Oseguera RN RN [email or web address] Estrada Curtis MD MD rt
--- NOTE | 2022-09-14 12:59 | ER ---
Nurse's Notes [facility] Name: Shea Campbell Age: 77 yrs Sex: Male : 1945 Arrival Date: 09/14/2022 Time: 08:45 Bed 8 Private MD: Diagnosis: Confusion Presentation: 09/14 08:50 Chief complaint: EMS states: [place] called stating patient was unresponsive, upon ko1 EMS arrival, patient was his baseline. He has alzheimers and does not communicate at times. Coronavirus screen: At this time, the client does not indicate any symptoms associated with coronavirus-19. Ebola Screen: No symptoms or risks identified at this time. Initial Sepsis Screen: Does the patient meet any 2 criteria? No. Patient's initial sepsis screen is negative. Does the patient have a suspected source of infection? No. Patient's initial sepsis screen is negative. Risk Assessment: Do you want to hurt yourself or someone else? Patient reports no desire to harm self or others. Onset of symptoms was September 14, 2022. 08:50 Method Of Arrival: EMS: [facility] ko1 08:50 Acuity: LELA 3 ko1 Triage Assessment: 08:54 General: Appears in no apparent distress. Behavior is calm, appropriate for age. Pain: ko1 Denies pain. Historical: - Allergies: 08:54 No Known Allergies; ko1 - Home Meds: 08:54 Aricept 10 mg Oral tablet [Active]; atorvastatin 80 mg Oral tab 1 tab once daily ko1 [Active]; carvedilol 12.5 mg Oral tab 1 tab 2 times per day [Active]; bupropion HCl 150 mg Oral Tb24 1 tab once daily [Active]; clopidogrel 75 mg Oral tab 1 tab once daily [Active]; Clonazepam Oral [Active]; escitalopram oxalate 20 mg Oral tab once daily [Active]; fenofibrate 145 mg daily Oral [Active]; donepezil 10 mg Oral tab 1 tab twice a day [Active]; finasteride 5 mg Oral tablet [Active]; Ecotrin 325 mg Oral TbEC once daily [Active]; Flomax Oral [Active]; Levoxyl 25 mcg Oral tab 1 tab once daily [Active]; Magnesium Oxide Oral [Active]; Simeon Red [Active]; memantine 10 mg Oral tab 1 tab 2 times per day [Active]; omeprazole 20 mg Oral TbEC daily [Active]; - PMHx: 08:54 Alzheimer's disease; depressive disorder; BPH; Hypertension; Hyperlipidemia; VASCULAR ko1 DEMENTIA; Thyroid problem; - Immunization history:: Adult Immunizations unknown. - Social history:: Smoking status: Patient denies any tobacco usage or history of. The patient lives in a correction. - Family history:: not pertinent. Screenin:36 [facility] ED Fall Risk Assessment (Adult) History of falling in the last 3 months, ko1 including since admission No falls in past 3 months (0 pts) Confusion or Disorientation Yes (5 pts) Intoxicated or Sedated No (0 pts) Impaired Gait Yes (1 pt) Mobility Assist Device Used Yes (1 pt) Altered Elimination Yes (1 pt) Score/Fall Risk Level 3 or more points = High Risk Oriented to surroundings, Maintained a safe environment, Educated pt \T\ family on fall prevention, incl call for assistance when getting out of bed, Assessed \T\ reinforced patient's understanding of fall precautions, Provided non-skid footwear, Hourly rounding (assess needs \T\ fall precautionary measures) done, Used ambulatory aids as needed (educated on \T\ assisted with), Used gait belt as appropriate Implemented a Fall Risk Plan of Care, Apply high fall risk patient identification: yellow non skid footwear/ fall signage, Offered frequent toileting (1:1 observation), Remained with patient while ambulating, Utilized family, sitter, or virtual spool cleaner as indicated. Abuse screen: Denies threats or abuse. Denies injuries from another. Nutritional screening: No deficits noted. Tuberculosis screening: No symptoms or risk factors identified. Assessment: 09:36 Neuro: Level of Consciousness is awake, alert, obeys commands, confused. ko1 Cardiovascular: No deficits noted. Respiratory: No deficits noted. GI: No deficits noted. : Parent/caregiver report the patient having incontinence. EENT: No deficits noted. Derm: No deficits noted. Musculoskeletal: No deficits noted. 10:31 Reassessment: Patient pulled off monitors and pulled out IV. Dressing applied to IV ko1 site, no bleeding noted. Attempted straight cath without success due to patient becoming combative, also attempted a condom cath to obtain urine specimen without success due to patient pulling it off. Vital Signs: 08:50 BP 158 / 93; Pulse 67; Resp 14; Temp 98.1(T); Pulse Ox 96% ; ko1 10:31 BP 164 / 86; Pulse 71; Resp 18; Pulse Ox 99% ; ko1 11:16 BP 176 / 91; Pulse 72; Resp 18; Pulse Ox 99% ; ko1 12:49 BP 168 / 88; Pulse 74; Resp 14; Pulse Ox 98% ; ko1 ED Course: 08:50 Patient arrived in ED. ko1 08:50 Estrada Curtis MD is Attending Physician. rt 08:50 [place] Patterson, JOANNA is Primary Nurse. ko1 08:54 Triage completed. ko1 08:54 Arm band placed on right wrist. Patient placed in an exam room, on a stretcher, on ko1 fiber optics supervisor, on pulse oximetry, Patient notified of wait time. 09:08 Inserted saline lock: 20 gauge in right antecubital area, using aseptic technique. ko1 Blood collected. 09:11 XRAY Chest (1 view) Sent. ko1 09:11 Basic Metabolic Panel Sent. ko1 09:11 TSH Sent. ko1 09:11 CBC with Diff Sent. ko1 09:11 LFT's Sent. ko1 09:11 Magnesium Sent. ko1 09:11 Troponin HS Sent. ko1 09:20 CT Head Brain wo Cont In Process Unspecified. EDMS 09:28 XRAY Chest (1 view) In Process Unspecified. EDMS 09:36 Patient has correct armband on for positive identification. Fall risk band placed. ko1 Placed in gown. Bed in low position. Call light in reach. Side rails up X2. Provided Education on: NA. Client placed on continuous cardiac and pulse oximetry monitoring. NIBP monitoring applied. bioinformatics specialist on. Door closed. Noise minimized. Warm blanket given. 13:09 No provider procedures requiring assistance completed. IV discontinued, intact, ko1 bleeding controlled, No redness/swelling at site. Pressure dressing applied. 13:17 Awaiting transportation. ko1 13:17 Report given to Karlee at [place]. ko1 Administered Medications: 09:29 Drug: NS 0.9% IV 1000 ml Route: IV; Rate: 1 bolus; Site: right antecubital; ko1 10:30 Follow up: Response: No adverse reaction; IV Status: Completed infusion; IV Intake: ko1 1000ml Medication: 12:50 VIS not applicable for this client. ko1 Intake: 10:30 IV: 1000ml; Total: 1000ml. ko1 Outcome: 12:58 Discharge ordered by . rt 13:17 Condition: improved ko1 13:17 Discharge instructions given to correction, Instructed on discharge instructions, follow up and referral plans. Demonstrated understanding of follow-up care. 14:10 Discharged to correction. Report called to [facility] Transfer form completed. ko1 14:24 Patient left the ED. ko1 Signatures: Dispatcher [employer] [place] Oseguera, RN RN ko1 Estrada Curtis MD MD rt
[2022-09-14 14:43] VITALS: TEMP 98.1
[2022-09-14 14:48] VITALS: BP 168/88; O2SAT 98
== END 2022-09-14 14:24 | disposition home or self-care (01) ==
LOC: ER 08:45
DX: R41.0 Disorientation, unspecified (principal); G30.9 Alzheimer's disease, unspecified; F02.80 Dementia in other diseases classified elsewhere, unspecified severity, without behavioral disturbance, psychotic disturbance, mood disturbance, and anxiety
CPT/HCPCS: 93005; 85025; 80048; 36415; 83735; 80076; 84443; 84484; 70450; 71045; J7030; 96360; 99285

== ENCOUNTER → 2023-04-24 | Emergency (ER) | payer OTHER ==
[~2023-04-24] MED LIST changes: +ASPIRIN 81 MG CHEWABLE TABLET ONE; -HEPA 1000U/500MLS 2,000 UNIT/1,000 ML BAG IV ONE; +NA CHLORIDE 0.9% 1,000 ML ONE
[2023-04-24 18:55] LABS: Absolute Lymphocytes (CBC) 1.2 K/uL (0.7-4.9); Hematocrit 29.7 % (39.6-49.0); Lymphocytes % 20.4 % (15.3-44.8); MCV 88.4 fL (80-100); MPV 6.7 fL (7.6-11.3); Platelets 281 thou/uL (152-406); RBC Red Blood Cell Count 3.36 M/uL (4.33-5.43)
[2023-04-24 19:17] LABS: Potassium 4.6 mEq/L (3.5-5.1); Troponin High Sensitivity 13.7 pg/mL (<58.9)
--- NOTE | 2023-04-24 19:21 | RAD REPORT ---
EXAM DESCRIPTION: Lizzeth Single View04/24/2023 6:36 pm CLINICAL HISTORY: Chest pain COMPARISON: 2022 FINDINGS: The lungs appear clear of acute infiltrate. The heart is mildly enlarged IMPRESSION: No acute abnormalities displayed
--- NOTE | 2023-04-24 20:51 | EDPHYS ---
Physician Documentation [facility] Name: Shea Campbell Age: 77 yrs Sex: Male : 1945 Arrival Date: 04/24/2023 Time: 17:47 Bed 17 Private MD: ED Physician Denzel Preciado HPI: 04/24 18:00 This 77 yrs old Male presents to ER via Unassigned with complaints of Chest Pain. sb4 18:00 patient with history of dementia resides at [facility] presents via EMS with chest pain. sb4 he denies any current chest pain, does not know why he is at the hospital, is requesting to go home. history is very limited secondary to advanced dementia. Historical: - Allergies: 18:04 No Known Allergies; me1 - PMHx: 18:04 Alzheimer's disease; angina pectoris; Bipolar disorder; BPH; depressive disorder; me1 Hyperlipidemia; Thyroid problem; Hypertension; - Immunization history:: Adult Immunizations unknown. - Social history:: Smoking status: unknown. ROS: 18:00 Constitutional: Negative for fever, chills, and weight loss, sb4 18:00 All other systems are negative, Exam: 18:00 Constitutional: This is a well developed, well nourished patient who is awake, alert, sb4 and in no acute distress. Head/Face: Normocephalic, atraumatic. Eyes: Extra-ocular motions intact. Periorbital areas with no swelling, redness, or edema. ENT: Mucous membranes moist. Cardiovascular: Regular rate and rhythm with a normal S1 and S2. Respiratory: Lungs have equal breath sounds bilaterally, clear to auscultation and percussion. No rales, rhonchi or wheezes noted. No increased work of breathing, no retractions or nasal flaring. Abdomen/GI: Soft, non-tender, no distension. Skin: Warm, dry with normal turgor. Normal color with no rashes, no lesions, and no evidence of cellulitis. MS/ Extremity: Pulses equal, no cyanosis. Neurovascular intact. Full, normal range of motion. 18:00 Neuro: Orientation: no acute changes, per EMS, Mentation: lucid, able to follow commands, Vital Signs: 17:57 BP 177 / 98; Pulse 73; Resp 17; Temp 98.4(O); Pulse Ox 100% on R/A; Height 5 ft. 10 in. me1 ; Pain 0/10; 18:30 BP 132 / 75; Pulse 71; Resp 12; Pulse Ox 100% on R/A; me1 19:30 BP 143 / 55; Pulse 66; Resp 12; Pulse Ox 97% on R/A; me1 20:30 BP 114 / 52; Pulse 66; Resp 21; Pulse Ox 97% on R/A; me1 17:57 Pain Scale: Adult me1 MDM: 17:57 Patient medically screened. sb4 19:00 Differential diagnosis: pneumonia acute NH, angina. cp 19:49 Data reviewed: vital signs, nurses notes, EMS record, halfway records, lab test sb4 result(s), EKG, radiologic studies, and as a result, I will discharge patient. Consideration of Admission/Observation Escalation of care including admission/observation considered. Care significantly affected by the following chronic conditions: Hypertension. Scoring Tools HEART Score: History: ECG: Age: Risk Factors: 1 or 2 risk factors (1), Troponin: Total Score = 3. Counseling: I had a detailed discussion with the patient and/or guardian regarding the historical points, exam findings, and any diagnostic results supporting the discharge/admit diagnosis, the presence of at least one elevated blood pressure reading (>120/80) during this emergency department visit, lab results, radiology results, the need for outpatient follow up, a metal template maker, to return to the emergency department if symptoms worsen or persist or if there are any questions or concerns that arise at home. 04/24 18:00 Order name: Basic Metabolic Panel; Complete Time: 19:17 sb4 04/24 20:27 Interpretation: Normal except: CL 109; BUN 28; CRE 1.98; GFR 35. cp 04/24 18:00 Order name: CBC with Diff; Complete Time: 19:01 sb4 04/24 20:28 Interpretation: Normal except: RBC 3.36; HGB 10.3; HCT 29.7; MPV 6.7; EOSINOPHIL % 7.8; cp BASO% 1.4. 04/24 18:00 Order name: Troponin HS; Complete Time: 19:17 sb4 04/24 19:40 Order name: Troponin High Sensitivity: at 2100; Complete Time: 20:27 sb4 04/24 20:27 Interpretation: Reviewed. cp 04/24 18:00 Order name: XRAY Chest (1 view); Complete Time: 19:25 sb4 04/24 18:00 Order name: EKG; Complete Time: 18:00 sb4 04/24 18:00 Order name: Cardiac monitoring; Complete Time: 18:24 sb4 04/24 18:00 Order name: EKG - Nurse/Tech; Complete Time: 18:24 sb4 04/24 18:00 Order name: IV Saline Lock; Complete Time: 18:48 sb4 04/24 18:00 Order name: Labs collected and sent; Complete Time: 18:48 sb4 04/24 18:00 Order name: O2 Per Protocol; Complete Time: 18:24 sb4 04/24 18:00 Order name: O2 Sat Monitoring; Complete Time: 18:24 sb4 04/24 19:39 Order name: Misc. Order: repeat trop at 2100; Complete Time: 19:51 sb4 EC:19 Rate is 74 beats/min. Rhythm is regular, Normal Sinus Rhythm with PACs. MD interval is sb4 normal at 200 msec. QRS interval is normal at 90 msec. QT interval is normal at [address] changes noted. Clinical impression: Normal ECG and No evidence of ischemia. Interpreted by me. Reviewed by me. Administered Medications: 18:52 Drug: Aspirin PO Chewable Tablet 324 mg PO once; 81 mg tablets x 4 Route: PO; me1 18:57 Follow up: Response: No adverse reaction me1 19:37 Drug: NS 0.9% IV 1000 ml IV at 1 bolus Per protocol; 1000 mL bolus Route: IV; Rate: 1 me1 bolus; Site: right antecubital; 21:45 Follow up: Response: No adverse reaction; IV Status: Completed infusion; IV Intake: cm10 100ml Disposition Summary: 04/24/23 20:51 Discharge Ordered Notes: Location: Home cp Problem: new cp Symptoms: are resolved cp Condition: Stable cp Diagnosis - Chest pain, unspecified cp Followup: sb4 - With: Emergency Department - When: As needed - Reason: Trouble breathing, Worsening of condition Discharge Instructions: - Aspirin and Your Heart cp - Discharge Summary Sheet sb4 - Nonspecific Chest Pain, Adult, [id number] sb4 Forms: - Medication Reconciliation Form cp - Thank You Letter cp - Antibiotic Education cp - Prescription Opioid Use cp - Patient Portal Instructions cp - Leadership Thank You Letter cp Signatures: Dispatcher [employer] Denzel Lopez PA PA cp Brown, Sophia, PA-C PA-C sb4 Brooklynn Spence RN RN me1 Amanda Jefferson RN cm10
--- NOTE | 2023-04-24 20:51 | ER ---
Nurse's Notes [facility] [place] Name: Shea Campbell Age: 77 yrs Sex: Male : 1945 Arrival Date: 04/24/2023 Time: 17:47 Bed 17 Private MD: Diagnosis: Chest pain, unspecified Presentation: 04/24 17:57 Chief complaint: EMS states: toned out for chest pain. c/o cp about 17:00 but denies me1 any at this time. Patient is A\T\Ox1, poor historian with hx of Alzheimers. Lives in the locked unit at [facility]. BP elevated for EMS 146/98, other vitals wnl. Patient refused to let EMS start an IV. Coronavirus screen: Vaccine status: unknown. Ebola Screen: No symptoms or risks identified at this time. Initial Sepsis Screen: Does the patient meet any 2 criteria? No. Patient's initial sepsis screen is negative. Does the patient have a suspected source of infection? No. Patient's initial sepsis screen is negative. Risk Assessment: Do you want to hurt yourself or someone else? Patient reports no desire to harm self or others. Onset of symptoms was April 24, 2023 at 17:00. 17:57 Method Of Arrival: EMS: [facility] me1 17:57 Acuity: LELA 3 me1 Triage Assessment: 18:04 General: Appears comfortable, well groomed, well developed, well nourished, Behavior is me1 calm, cooperative, appropriate for age. Pain: Denies pain. Neuro: Level of Consciousness is awake, alert, obeys commands, Oriented to person, hx Alzheimers. A\T\Ox1. Cardiovascular: Capillary refill < 3 seconds Patient's skin is warm and dry. Respiratory: Airway is patent Trachea midline Respiratory effort is even, unlabored, Respiratory pattern is regular, symmetrical. Historical: - Allergies: 18:04 No Known Allergies; me1 - PMHx: 18:04 Alzheimer's disease; angina pectoris; Bipolar disorder; BPH; depressive disorder; me1 Hyperlipidemia; Thyroid problem; Hypertension; - Immunization history:: Adult Immunizations unknown. - Social history:: Smoking status: unknown. Screenin:06 [facility] ED Fall Risk Assessment (Adult) History of falling in the last 3 months, me1 including since admission No falls in past 3 months (0 pts) Confusion or Disorientation Yes (5 pts) Intoxicated or Sedated No (0 pts) Impaired Gait No (0 pts) Mobility Assist Device Used No (0 pt) Altered Elimination Yes (1 pt) Score/Fall Risk Level 0 - 2 = Low Risk Maintained a safe environment, Provided non-skid footwear, Hourly rounding (assess needs \T\ fall precautionary measures) done. Abuse screen: Denies threats or abuse. Nutritional screening: No deficits noted. Tuberculosis screening: No symptoms or risk factors identified. Assessment: 17:55 Reassessment: No changes from previously documented assessment. Pain: Denies pain. me1 19:48 Pain: Pain began unable to obtain. Patient with Alzheimers and denies having chest pain.me1 19:49 Pain: Pain does not radiate. me1 21:14 Reassessment: Patient and/or family updated on plan of care and expected duration. Pain cm10 level reassessed. senior living contacted at this time. Per staff member, transportation has not been set up yet and will be set up when nurse is done giving residents baths. 21:28 Reassessment: Per [facility] at [facility] for [facility] approximately 60-90 jb4 minutes. 21:48 Reassessment: Pt removed all monitoring equipment and removed IV. cm10 Vital Signs: 17:57 BP 177 / 98; Pulse 73; Resp 17; Temp 98.4(O); Pulse Ox 100% on R/A; Height 5 ft. 10 in. me1 ; Pain 0/10; 18:30 BP 132 / 75; Pulse 71; Resp 12; Pulse Ox 100% on R/A; me1 19:30 BP 143 / 55; Pulse 66; Resp 12; Pulse Ox 97% on R/A; me1 20:30 BP 114 / 52; Pulse 66; Resp 21; Pulse Ox 97% on R/A; me1 17:57 Pain Scale: Adult me1 ED Course: 17:51 Patient arrived in ED. me1 17:57 Dariela Resendiz PA-C is PHCP. sb4 17:57 Denzel Preciado MD is Attending Physician. sb4 18:04 Triage completed. me1 18:04 Arm band placed on Patient placed in an exam room. me1 18:06 Patient has correct armband on for positive identification. Bed in low position. Call me1 light in reach. Side rails up X2. Provided Education on:. Client placed on continuous cardiac and pulse oximetry monitoring. NIBP monitoring applied. editorial manager on. Pulse ox on. 18:06 No provider procedures requiring assistance completed. Patient maintains SpO2 me1 saturation greater than 95% on room air. 18:38 XRAY Chest (1 view) In Process Unspecified. EDMS 18:48 Boroklynn Spence, RN is Primary Nurse. me1 18:48 Inserted saline lock: 22 gauge in right antecubital area, using aseptic technique. me1 18:48 Troponin HS Sent. me1 18:48 CBC with Diff Sent. me1 18:48 Basic Metabolic Panel Sent. me1 19:51 Troponin High Sensitivity: at 2100 Sent. me1 19:59 PHCP role handed off by Dariela Resendiz PA-C cp 19:59 Denzel Melchor PA is PHCP. cp 21:20 Primary Nurse role handed off by Brooklynn Spence, JOANNA ap3 21:44 Amanda Jefferson, JOANNA is Primary Nurse. cm10 21:49 IV discontinued, intact, bleeding controlled, No redness/swelling at site. Pressure cm10 dressing applied. Administered Medications: 18:52 Drug: Aspirin PO Chewable Tablet 324 mg PO once; 81 mg tablets x 4 Route: PO; me1 18:57 Follow up: Response: No adverse reaction me1 19:37 Drug: NS 0.9% IV 1000 ml IV at 1 bolus Per protocol; 1000 mL bolus Route: IV; Rate: 1 me1 bolus; Site: right antecubital; 21:45 Follow up: Response: No adverse reaction; IV Status: Completed infusion; IV Intake: cm10 100ml Medication: 19:48 VIS not applicable for this client. me1 Intake: 21:45 IV: 100ml; Total: 100ml. cm10 Outcome: 20:51 Discharge ordered by MD. cp 22:49 Discharged to skilled nursing. ap3 22:49 Condition: good 22:49 Discharge instructions given to skilled nursing, Instructed on discharge instructions, Demonstrated understanding of instructions, follow-up care, 22:50 Patient left the ED. ap3 Signatures: Dispatcher [employer] EDOK Denzel Melchor PA PA cp Bryson, James, RN RN jb4 Beatrice Taylor RN RN ap3 Dariela Resendiz, ROSALIA PA-C [email or web address] Amanda Jefferson, RN RN cm10 Brooklynn Spence, RN RN me1
[2023-04-24 23:53] VITALS: BP 114/52; TEMP 98.4; O2SAT 97
--- NOTE | 2023-04-25 15:49 | EKG ---
Test Date: 2023-04-24 Test Time: 18:03:06 Import Coordinator: MEASUREMENT RESULTS: Intervals: Rate: 74 SC: 200 QRSD: 90 QT: 398 QTc: 441 [place]: P: 55 SC: 200 QRS: 6 T: 66 INTERPRETIVE STATEMENTS: Sinus rhythm with premature atrial complexes Possible Inferior infarct, age undetermined Anterior infarct, age undetermined Abnormal ECG Compared to ECG 09/18/2022 11:03:15 Atrial premature complex(es) now present Myocardial infarct finding still present Electronically Signed On 04-25-23 15:46:20 CIRCULAR CLERK by Prabhakar Berkowitz
== END ==
LOC: ER 17:47
DX: R07.9 Chest pain, unspecified (principal); I10 Essential (primary) hypertension; G30.9 Alzheimer's disease, unspecified; F02.80 Dementia in other diseases classified elsewhere, unspecified severity, without behavioral disturbance, psychotic disturbance, mood disturbance, and anxiety
CPT/HCPCS: 96361; 93005; 85025; 80048; 36415; 84484 ×2; 71045; 96360; 99285; J7030

== ENCOUNTER 2024-01-01 12:00 | Emergency (ER) | payer OTHER ==
--- NOTE | 2024-01-01 13:22 | RAD REPORT ---
EXAMINATION: CT ABDOMEN AND PELVIS WITHOUT CONTRAST CLINICAL INDICATION: HEMATURIA TECHNIQUE: CT abdomen and pelvis was performed, without IV contrast, as per department protocol. Axia l, sagittal and coronal reconstructions were obtained. One or more of the following dose reduction techniques were used: Automated exposure control, adjustment of the mA and kV according to the patien t size, and iterative reconstruction. Unless otherwise specified, incidental findings do not require dedicated imaging follow-up. COMPARISON: No prior exam. FINDINGS: The lack of intravenous contrast limits the sensitivity of this exam for evaluation of solid visceral organs, vascular structures, and retroperitoneum. LOWER CHEST: Mild linear atelectasis is present in the left lung base. LIVER:Normal in size and contour. No focal lesion. Cholecystectomy clips. SPLEEN: Normal size. No focal lesion. PANCREAS: No mass, ductal dilation, or marlene-pancreatic fluid. ADRENALS: Nonvisualized right adrenal gland which may be surgically removed. Normal left adrenal glan d. KIDNEYS AND URETERS: Absent right kidney. Severe left-sided hydronephrosis and hydroureter is present . There is no obstructing stone visualized. The hydroureter extends to the level of the left UVJ. URINARY BLADDER: Normal contour. GASTROINTESTINAL TRACT: No evidence of bowel obstruction, significant free fluid, free air or abscess . APPENDIX: Normal appendix. LYMPH NODES: No lymphadenopathy. MUSCULOSKELETAL: Moderate compression fracture is present containing vertebroplasty cement affecting L1 with mild bony retropulsion. ADDITIONAL FINDINGS: Small bilateral fat-containing ventral hernias, reaching moderate in size on the left. Left common iliac stent seen. IMPRESSION: Severe left-sided hydronephrosis and hydroureter to the level of the left UVJ without clear etiology identified. Obstructing calculus is not evident in the region.
[2024-01-01 13:49] LABS: Specific Gravity 1.013 (1.005-1.030); Sqamous Epithelial None Seen /HPF (None Seen); Urine Bacteria <20 /HPF (<20); Urine Bilirubin NEGATIVE (Negative); Urine Blood 3+ (OVER) (Negative); Urine Clarity Extremely Turbid (Clear); Urine Color Light-Yellow (Yellow); Urine Culture Reflex Order REFLEXED; Urine Glucose NEGATIVE (Negative); Urine Ketones NEGATIVE (Negative); Urine Microscopic Reflex YN ORDER UMIC; Urine Mucus Slight /HPF (None Seen); Urine Nitrite NEGATIVE (Negative); Urine Protein 2+ (Negative); Urine RBC >50 /HPF (None Seen); Urine Urobilinogen Normal (Normal); Urine WBC >50 /HPF (<5); Urine pH 6.5 (5.0-7.0)
--- NOTE | 2024-01-01 14:07 | EDPHYS ---
Physician Documentation [facility] Name: Shea Campbell Age: 78 yrs Sex: Male : 1945 Arrival Date: 01/01/2024 Time: 12:00 Bed 18 Private MD: ED Physician Dwaine Campos HPI: 12/31 13:05 This 78 yrs old Male presents to ER via EMS with complaints of Urinary Problem. rn 13:05 The patient presents with urinary symptoms, hematuria. Onset: The symptoms/episode rn began/occurred just prior to arrival. Modifying factors: The symptoms are alleviated by nothing, the symptoms are aggravated by nothing. Severity of symptoms: At their worst the symptoms were moderate, in the emergency department the symptoms are unchanged. It is unknown whether or not the patient has had similar symptoms in the past. The patient has not recently seen a physician. Patient [facility] by EMS [facility] for gross hematuria as they helped him out of bed. Per EMS report patient with a history of kidney cancer but was 20 years ago. Patient does not have a Lala catheter. No known trauma. No fever or chills. Patient has dementia and states does not want to be here. Denies focal pain in the abdomen or back.. Historical: - Allergies: 12:52 No Known Allergies; me1 - PMHx: 12:52 Alzheimer's disease; Bipolar disorder; angina pectoris; depressive disorder; BPH; me1 Hyperlipidemia; Thyroid problem; Hypertension; - Immunization history:: Adult Immunizations up to date. - Infectious Disease History:: Denies. - Social history:: Smoking status: unknown. - Family history:: not pertinent. - Hospitalizations: : No recent hospitalization is reported. ROS: 13:05 Constitutional: Negative for fever, chills, and weight loss, Neck: Negative for injury, rn pain, and swelling, Cardiovascular: Negative for chest pain, palpitations, and edema, Respiratory: Negative for shortness of breath, cough, wheezing, and pleuritic chest pain, Abdomen/GI: Negative for abdominal pain, nausea, vomiting, diarrhea, and constipation, Back: Negative for injury and pain, MS/Extremity: Negative for injury and deformity, Skin: Negative for injury, rash, and discoloration, Neuro: Negative for headache, weakness, numbness, tingling, and seizure, Exam: 13:05 Constitutional: This is a well developed, well nourished patient who is awake, alert, rn and in no acute distress. Cardiovascular: Regular rate and rhythm. No pulse deficits. Respiratory: No increased work of breathing, no retractions or nasal flaring. Abdomen/GI: Soft, non-tender, nondistended Vital Signs: 12:45 BP 175 / 98; Pulse 79; Resp 16; Temp 97.4; Pulse Ox 100% ; me1 14:51 BP 195 / 103; Pulse 79; Resp 18; Pulse Ox 99% on R/A; cm10 15:49 BP 180 / 103; Pulse 78; Resp 18; Pulse Ox 100% on R/A; cm10 MDM: 12:43 Medical Screening Exam initiated rn 14:05 Differential diagnosis: UTI, urinary retention, prostatitis, urethritis, Cystitis, rn bladder cancer, kidney stone, hydronephrosis, renal cancer. Data reviewed: vital signs, nurses notes, lab test result(s), radiologic studies, CT scan, and as a result, I will admit patient. Consideration of Admission/Observation Patient was admitted/placed on observation. Escalation of care including admission/observation considered. Counseling: I had a detailed discussion with the patient and/or guardian regarding the historical points, exam findings, and any diagnostic results supporting the discharge/admit diagnosis, lab results, radiology results, the need for further work-up and treatment in the hospital, the need to transfer to another facility, [facility] does not immediately have the required specialist. ED course: CT shows severe left-sided hydronephrosis without stone. Starting at UVJ, can indicate bladder cancer or ureteral stricture. No evidence of infection. No urology here, will transfer to [facility] for further evaluation and care.. 12/31 12:51 Order name: CBC with Diff; Complete Time: 15:07 rn 12/31 12:51 Order name: Basic Metabolic Panel rn 12/31 12:51 Order name: Protime (+inr); Complete Time: 14:46 rn 12/31 12:51 Order name: Ptt, Activated; Complete Time: 14:46 rn 12/31 12:51 Order name: Urinalysis w/ reflexes; Complete Time: 13:58 rn 12/31 13:59 Order name: Urine Culture EDID 12/31 12:51 Order name: CT Stone Protocol; Complete Time: 13:58 rn 12/31 12:51 Order name: IV Start; Complete Time: 14:52 rn 12/31 14:02 Order name: Labs - recollect needed: recollect lavender top; Complete Time: 14:42 bd 12/31 14:07 Order name: Labs - recollect needed: recollect green top; Complete Time: 14:42 bd Administered Medications: 15:43 Drug: Rocephin IV 1 grams IV at calculated rate once; Given slow IV push per pharmacy cm10 instructions Route: IV; Rate: calculated rate; Site: left antecubital; 16:00 Follow up: Response: No adverse reaction; IV Status: Completed infusion; IV Intake: [id number] Disposition Summary: 01/01/24 14:07 Transfer Ordered Notes: Transfer Location: [facility] rn Reason: Higher level of care rn Condition: Stable rn Problem: new rn Symptoms: have improved rn Accepting Physician: (01/01/24 16:39) cm10 Diagnosis - Gross hematuria rn - Other and unspecified hydronephrosis rn Forms: - Medication Reconciliation Form rn - SBAR form rn Signatures: Dispatcher [employer] EDMS Lyssa Salmeron Roman, MD MD rn Martinez, Clarissa, RN RN cm10 Brooklynn Spence RN RN me1 Corrections: (The following items were deleted from the chart) 12:51 12:51 CBC+H.LAB.BRZ ordered. EDMS EDMS 12:51 12:51 BASIC METABOLIC PANEL+C.LAB.BRZ ordered. EDMS EDMS 12:51 12:51 PROTIME (+INR)+COAG.LAB.BRZ ordered. EDMS EDMS 12:51 12:51 PTT, ACTIVATED+COAG.LAB.BRZ ordered. EDMS EDMS 12:51 12:51 Urinalysis+U.LAB.BRZ ordered. EDMS EDMS 12:51 12:51 Stone Protocol+CT.RAD.BRZ ordered. EDMS EDMS 16:39 14:07 rn cm10
--- NOTE | 2024-01-01 14:07 | ER ---
Nurse's Notes [facility] [place] Name: Shea Campbell Age: 78 yrs Sex: Male : 1945 Arrival Date: 01/01/2024 Time: 12:00 Bed 18 Private MD: Diagnosis: Gross hematuria;Other and unspecified hydronephrosis Presentation: 12/31 12:45 Chief complaint: EMS states: toned out to [facility] for hematuria. Urine was me1 bright red. Hx of kidney cancer with a kidney removed about 20 years ago per . A\T\Ox1-2 at baseline. Coronavirus screen: Vaccine status:. Ebola Screen: No symptoms or risks identified at this time. Initial Sepsis Screen: Does the patient meet any 2 criteria? No. Patient's initial sepsis screen is negative. Risk Assessment: Do you want to hurt yourself or someone else? Patient reports no desire to harm self or others. Onset of symptoms was January 01, 2024. 12:45 Method Of Arrival: [facility] pa1 12:45 Acuity: LELA 3 me1 16:35 Initial Sepsis Screen: Does the patient have a suspected source of infection? No. cm10 Patient's initial sepsis screen is negative. Triage Assessment: 13:30 General: Appears in no apparent distress. comfortable, Behavior is calm, cooperative. cm10 Pain: Unable to use pain scale. Does not appear to understand pain scale. Neuro: No deficits noted. Level of Consciousness is awake, alert, Oriented to person. Respiratory: No deficits noted. Airway is patent Respiratory effort is even, unlabored, Respiratory pattern is regular, symmetrical. : Parent/caregiver report the patient having Blood in urine. Historical: - Allergies: 12:52 No Known Allergies; me1 - PMHx: 12:52 Alzheimer's disease; Bipolar disorder; angina pectoris; depressive disorder; BPH; me1 Hyperlipidemia; Thyroid problem; Hypertension; - Immunization history:: Adult Immunizations up to date. - Infectious Disease History:: Denies. - Social history:: Smoking status: unknown. - Family history:: not pertinent. - Hospitalizations: : No recent hospitalization is reported. Screenin:51 [facility] ED Fall Risk Assessment (Adult) History of falling in the last 3 months, cm10 including since admission No falls in past 3 months (0 pts) Confusion or Disorientation Yes (5 pts) Intoxicated or Sedated No (0 pts) Impaired Gait Yes (1 pt) Mobility Assist Device Used Yes (1 pt) Altered Elimination Yes (1 pt) Score/Fall Risk Level 3 or more points = High Risk Oriented to surroundings, Maintained a safe environment, Hourly rounding (assess needs \T\ fall precautionary measures) done. Abuse screen: Denies threats or abuse. Denies injuries from another. Nutritional screening: No deficits noted. Tuberculosis screening: No symptoms or risk factors identified. Assessment: 14:51 Reassessment: Patient appears in no apparent distress at this time. Patient and/or cm10 family updated on plan of care and expected duration. Pain level reassessed. Patient is alert, oriented x 3, equal unlabored respirations, skin warm/dry/pink. 15:48 Reassessment: Patient appears in no apparent distress at this time. No changes from cm10 previously documented assessment. Patient and/or family updated on plan of care and expected duration. Pain level reassessed. 15:50 Reassessment: Pt noted to have blood in leyva bag. Provider made aware. PT's made cm10 aware of pt being transferred to [facility]. 16:12 Reassessment: Dr. Campos aware of blood pressure. No new orders. cm10 Vital Signs: 12:45 BP 175 / 98; Pulse 79; Resp 16; Temp 97.4; Pulse Ox 100% ; me1 14:51 BP 195 / 103; Pulse 79; Resp 18; Pulse Ox 99% on R/A; cm10 15:49 BP 180 / 103; Pulse 78; Resp 18; Pulse Ox 100% on R/A; cm10 ED Course: 12:43 Patient arrived in ED. me1 12:43 Dwaine Campos MD is Attending Physician. rn 12:52 Triage completed. me1 12:52 Arm band placed on Patient placed in an exam room. me1 13:03 Amanda Jefferson, RN is Primary Nurse. cm10 13:06 CT Stone Protocol In Process Unspecified. EDMS 13:30 Patient has correct armband on for positive identification. Bed in low position. Call cm10 light in reach. Side rails up X2. Provided Education on: ER process and procedures.. 13:30 Coud inserted, using sterile technique, 18 Fr. Returned cloudy urine. To gravity cm10 drainage. Urine specimen collected. Patient tolerated well. 13:39 Urinalysis w/ reflexes Sent. cm10 13:45 Missed attempt(s): 20 gauge in right antecubital area. Bleeding controlled, band aid cm10 applied, catheter tip intact. 14:[address] [facility]. bd 14:43 Lab(s) recollected, by me, sent to lab. Missed attempt(s): 22 gauge in right forearm. cm10 Bleeding controlled, band aid applied, catheter tip intact. 14:51 Inserted saline lock: 20 gauge in left antecubital area, using aseptic technique. cm10 Flushed with 10 mL NS. 15:35 accepted in transfer to [facility] rm [id number] Dao admin approval given by Harmony ragsdale RN. 15:56 Report given to JOANNA Sloan at [facility]. cm10 16:34 Report given to Alba with [facility] who assumes care of patient. PT stable cm10 for transport at this time. 16:34 No provider procedures requiring assistance completed. Patient transferred, IV remains cm10 in place. Administered Medications: 15:43 Drug: Rocephin IV 1 grams IV at calculated rate once; Given slow IV push per pharmacy cm10 instructions Route: IV; Rate: calculated rate; Site: left antecubital; 16:00 Follow up: Response: No adverse reaction; IV Status: Completed infusion; IV Intake: [id number] Medication: 14:51 VIS not applicable for this client. cm10 Intake: 16:00 IV: 50ml; Total: 50ml. cm10 Output: 15:44 Urine: 1275ml (Leyva); Total: 1275ml. cm10 Outcome: 14:07 ER care complete, transfer ordered by . rn 16:35 Transferred by ground EMS [facility]. to [facility], Transfer cm10 form completed. X-rays sent w/ patient. 16:35 Condition: stable 16:35 Instructed on the need for transfer, 16:39 Patient left the ED. cm10 Signatures: Dispatcher [employer] EDMS Lyssa Salmeron Roman, MD MD rn Martinez, Clarissa, RN RN 10 Brooklynn Spence RN RN [facility]
[2024-01-01 14:16] LABS: PT Prothrombin Time 9.6 SECONDS (9.4-12.5); PTT, Activated Partial Thromb 16.6 SECONDS (24.3-36.9); Protime INR 0.85
[2024-01-01 14:52] LABS: Absolute Basophils 0.1 K/uL (0-0.5); Absolute Eosinophils 0.6 K/uL (0-0.5); Absolute Lymphocytes (CBC) 1.3 K/uL (0.7-4.9); Absolute Monocytes 0.6 K/uL (0.1-1.3); Absolute Neutrophil 5.7 K/uL (1.8-8.0); Eosinophils % 6.7 % (0-4.4); Lymphocytes % 15.2 % (15.3-44.8); MCH 31.5 pg (27.0-35.0); MCHC 33.4 g/dL (32.0-36.0); MCV 94.4 fL (80-100); MPV 7.8 fL (7.6-11.3); Monocytes % 7.8 % (3.3-12.3); Neutrophils % 69.3 % (41.7-73.7); Nucleated Red Blood Cells % 0.1 % (0-0); Platelets 166 thou/uL (152-406); RBC Red Blood Cell Count 5.08 M/uL (4.33-5.43); Red Cell Distribution Width 13.4 % (12.1-15.2)
[2024-01-01] MEDS ORDERED: NA CHLORIDE 0.9% 50 ML ONE (15:34)
[2024-01-01] MEDS ORDERED: CEFTRIAXONE 1000 MG/VIAL ONE (15:34)
[2024-01-01 17:03] VITALS: TEMP 97.4
[2024-01-01 17:05] VITALS: BP 180/103; O2SAT 100
== END 2024-01-01 16:39 | disposition short-term general hospital (02) ==
LOC: ER 12:00
DX: R31.0 Gross hematuria (principal); N13.39 Other hydronephrosis; I10 Essential (primary) hypertension; G30.9 Alzheimer's disease, unspecified; F02.80 Dementia in other diseases classified elsewhere, unspecified severity, without behavioral disturbance, psychotic disturbance, mood disturbance, and anxiety
CPT/HCPCS: 87088; 85025; 81001; 87086; 80048; 36415; 85610; 85730; 76377; 74176; J0696; 96365; 99285

== ENCOUNTER 2024-01-29 12:17 | Emergency (ER) | payer OTHER ==
[2024-01-29 12:55] LABS: Absolute Basophils 0.1 K/uL (0-0.5); Absolute Eosinophils 0.4 K/uL (0-0.5); Absolute Monocytes 1.1 K/uL (0.1-1.3); Absolute Neutrophil 3.9 K/uL (1.8-8.0); Basophils % 1.1 % (0-1.3); Eosinophils % 6.6 % (0-4.4); Hematocrit 39.9 % (39.6-49.0); Hemoglobin 13.2 g/dL (13.6-17.9); Lymphocytes % 15.4 % (15.3-44.8); MCH 30.4 pg (27.0-35.0); MCV 92.1 fL (80-100); Monocytes % 17.2 % (3.3-12.3); Neutrophils % 59.7 % (41.7-73.7); Platelets 249 thou/uL (152-406); RBC Red Blood Cell Count 4.33 M/uL (4.33-5.43); Red Cell Distribution Width 13.3 % (12.1-15.2)
[2024-01-29 13:01] LABS: PT Prothrombin Time 12.7 SECONDS (9.4-12.5); PTT, Activated Partial Thromb 27.3 SECONDS (24.3-36.9); Protime INR 1.14
[2024-01-29 13:15] LABS: Albumin 2.8 g/dL (3.4-5.0); Albumin/Globulin Ratio 0.7 (1.1-1.8); Anion Gap 10.4 mEq/L (5.0-15.0); Bilirubin Direct 0.2 mg/dL (0-0.2); Bilirubin Indirect, Calculated 0.4 mg/dL (0.2-0.8); Bilirubin Total 0.6 mg/dL (0.2-1.0); Globulin 4.3 g/dL (2.3-3.5); Magnesium 2.4 mg/dL (1.6-2.4); Potassium 4.4 mEq/L (3.5-5.1); Protein, Total 7.1 g/dL (6.4-8.2); Troponin High Sensitivity 11.9 pg/mL (<58.9)
[2024-01-29 13:41] LABS: Specific Gravity 1.027 (1.005-1.030); Sqamous Epithelial None Seen /HPF (None Seen); Urine Bacteria None Seen /HPF (<20); Urine Bilirubin NEGATIVE (Negative); Urine Blood 3+ (Negative); Urine Clarity Extremely Turbid (Clear); Urine Color Yellow (Yellow); Urine Crystals Unidentified Few /HPF (None Seen); Urine Culture Reflex Order REFLEXED; Urine Glucose NEGATIVE (Negative); Urine Ketones NEGATIVE (Negative); Urine Microscopic Reflex YN ORDER UMIC; Urine Mucus Slight /HPF (None Seen); Urine Nitrite NEGATIVE (Negative); Urine Protein 3+ (Negative); Urine RBC >50 /HPF (None Seen); Urine Urobilinogen 1+ (Normal); Urine WBC 20-50 /HPF (<5); Urine WBC Clump Occasional /HPF (None Seen); Urine Yeast (Budding) Occasional /HPF (None Seen); Urine pH 6.5 (5.0-7.0)
[2024-01-29 14:08] LABS: SARS-CoV-2 Antigen CONTROL BLUE LINE VIS/BG OK; SARS-CoV-2 Antigen Rapid Res Negative (Negative)
--- NOTE | 2024-01-29 14:51 | RAD REPORT ---
EXAMINATION: CT Abdomen Pelvis W Contrast CLINICAL INDICATION: Male, 78 years old. ABD PAIN TECHNIQUE: CT abdomen and pelvis was performed, after the administration of IV contrast, as per depar tment protocol. Axial, sagittal and coronal reconstructions were obtained. One or more of the following dose reduction techniques were used: Automated exposure control, adjustment of the mA and k V according to patient size, and iterative reconstruction. Unless otherwise specified, incidental findings do not require dedicated imaging follow-up. COMPARISON: 01/01/2024 FINDINGS: LOWER CHEST: Trace bilateral pleural effusions with underlying subsegmental atelectasis. LIVER: Normal in size and contour. No focal lesion. BILIARY SYSTEM: Status post cholecystectomy. SPLEEN: Normal size. No focal lesion. PANCREAS: No mass, ductal dilation, or marlene-pancreatic fluid. ADRENALS: Normal; no mass. KIDNEYS: Status post right nephrectomy. Left percutaneous nephrostomy in place, with no residual hydr onephrosis. Mild left perinephric stranding, nonspecific. URINARY BLADDER: Stable mild diffuse wall thickening, may relate to long-standing sequelae of bladder outlet obstruction. No focal wall findings. GASTROINTESTINAL TRACT: No evidence of free air, significant intra-abdominal free fluid, bowel obstru ction or abscess. Moderate stool burden in the rectum APPENDIX: Normal appendix. LYMPH NODES: No lymphadenopathy. MUSCULOSKELETAL: Stable wedge compression deformity at L1, with sequelae of vertebral augmentation. ADDITIONAL FINDINGS: Bilateral inguinal hernias containing fat. IMPRESSION: Trace bilateral pleural effusions with underlying atelectasis. Satisfactory positioning of left percutaneous nephrostomy, with no residual hydronephrosis. Status po st right nephrectomy. Other stable findings as above.
--- NOTE | 2024-01-29 14:53 | RAD REPORT ---
EXAM: CT Head Brain Wo Cont HISTORY: CONFUSED COMPARISON: 09/14/2022 TECHNIQUE: Multiple contiguous axial images were obtained for a CT of the brain without contrast. Sag ittal and coronal reformats were performed. One or more of the following dose reduction techniques were used: Automated exposure control, adjus tment of the mA and kV according to patient size, and iterative reconstruction. Unless otherwise specified, incidental findings do not require dedicated imaging follow-up. FINDINGS: No evidence of hydrocephalus, intracranial hemorrhage, or extra-axial fluid collection. Moderate brain atrophy with moderate periventricular and deep white matter chronic microvascular isc hemic changes, stable. The calvarium is intact. The visualized paranasal sinuses are clear. Opacification of the mastoid air cells bilaterally, stable. IMPRESSION: No evidence of acute intracranial abnormality. Stable findings as above.
--- NOTE | 2024-01-29 15:53 | EDPHYS ---
Physician Documentation [facility] Name: Shea Campbell Age: 78 yrs Sex: Male : 1945 Arrival Date: 01/29/2024 Time: 12:17 Bed 15 Private MD: ED Physician Spencer Navarro HPI: 01/28 15:38 This 78 yrs old Male presents to ER via EMS with complaints of Altered Mental ec2 Status. 15:38 Patient arrives today with reported altered mental status which is within his baseline. ec2 Patient unable provide significant history due to his general dementia.. Historical: - Allergies: 12:31 No Known Allergies; kc6 - PMHx: 12:31 Alzheimer's disease; angina pectoris; Bipolar disorder; BPH; depressive disorder; kc6 Hyperlipidemia; Hypertension; Thyroid problem; Anxiety; - PSHx: 12:31 Unable to Obtain; kc6 - Immunization history:: Adult Immunizations unknown. - Infectious Disease History:: Denies. - Social history:: Smoking status: unknown. ROS: 15:51 Constitutional: as per hpi ec2 Exam: 15:51 Constitutional: GEN: NAD Head: atraumatic Eyes: EOMI Ears: External ears are ec2 normal. CV: regular rate LUNGS: no respiratory distress ABD: non-distended, soft, nephrostomy tube in place in the left flank SKIN: no evidence of rashes MSK: no evidence of trauma Vital Signs: 12:26 BP 129 / 85; Pulse 67; Resp 18 S; Temp 98.8(O); Pulse Ox 99% on R/A; Weight 87.54 kg kc6 (M); 14:18 BP 119 / 79; Pulse 70; Resp 15 S; Pulse Ox 100% on R/A; kc6 18:51 BP 104 / 79; Pulse 64; Resp 15 S; Pulse Ox 97% on R/A; kc6 19:00 BP 130 / 74; Pulse 59; Resp 17; Temp 98.8; Pulse Ox 98% on R/A; Pain 0/10; bm8 19:00 Pain Scale: Adult bm8 [place] Coma Score: 19:00 Eye Response: to voice(3). Motor Response: obeys commands(6). Verbal Response: bm8 confused(4). Total: 13. MDM: 12:18 Medical Screening Exam initiated sb4 15:51 Data reviewed: vital signs, nurses notes. ED course: Patient arrives today due to ec2 reported altered mental status. Examination is unrevealing,With who reports the patient seems to be at baseline. Lab work is generally unrevealing. CT scan of the head, CT abdomen pelvis shows no acute pathology. Will send urine off for cultures and forego antibiotics at this time. Will discharge home. Turn precautions given.. 01/28 12:20 Order name: Basic Metabolic Panel; Complete Time: 13:31 sb4 01/28 12:20 Order name: CBC with Diff; Complete Time: 13:31 sb4 01/28 12:20 Order name: Hepatic Function; Complete Time: 13:31 sb4 01/28 12:20 Order name: Magnesium; Complete Time: 13:31 sb4 01/28 12:20 Order name: Protime (+inr); Complete Time: 13:31 sb4 01/28 12:20 Order name: Ptt, Activated; Complete Time: 13:31 sb4 01/28 12:20 Order name: Troponin High Sensitivity; Complete Time: 13:31 sb4 01/28 12:20 Order name: Urinalysis w/ reflexes; Complete Time: 13:44 sb4 01/28 12:35 Order name: Influenza Screen (a \T\ B); Complete Time: 13:56 ec2 01/28 12:35 Order name: SARS RAPID; Complete Time: 14:29 ec2 01/28 13:02 Order name: AMMONIA; Complete Time: 14:29 ec2 01/28 13:45 Order name: Urine Culture EDMO 01/28 12:39 Order name: CT Head Brain wo Cont; Complete Time: 15:30 ec2 01/28 13:01 Order name: CT Abd/Pelvis - IV Contrast Only; Complete Time: 15:30 ec2 01/28 12:20 Order name: EKG; Complete Time: 12:20 sb4 Administered Medications: No medications were administered Disposition Summary: 01/29/24 15:53 Discharge Ordered Notes: Location: Home ec2 Condition: Stable ec2 Diagnosis - Altered mental status, unspecified ec2 Followup: ec2 - With: Private Physician - When: - Reason: Re-evaluation by your physician Discharge Instructions: - Discharge Summary Sheet ec2 - Confusion ec2 Forms: - SBAR form iw - Medication Reconciliation Form ec2 - Antibiotic Education ec2 - Prescription Opioid Use ec2 - Patient Portal Instructions ec2 - Leadership Thank You Letter ec2 Prescriptions: - Cephalexin 500 mg Oral Capsule - take 1 capsule ORAL route every 8 hours for 10 days; 30 capsule; Refills: 0, ec2 Product Selection Permitted Signatures: Dispatcher [employer] Rea Pal RN RN kc6 Dariela Resendiz PA-C PA-C sb4 Spencer Navarro MD MD ec2 Corrections: (The following items were deleted from the chart) 12:20 Cardiac monitoring ordered. sb4 sb4 12:20 EKG - Nurse/Tech ordered. sb4 sb4 12:20 IV Saline Lock ordered. sb4 sb4 12:20 Labs collected and sent ordered. sb4 sb4 12:20 Oxygen Per Protocol ordered. sb4 sb4 : 12:20 O2 Sat Monitoring ordered. sb4 sb4 12: 12:20 Head C Spine MPR Wo Con+CT.RAD.BRZ ordered. EDMS EDMS 12: 12:20 Chest Abdomen Pelvis Wo Con+CT.RAD.BRZ ordered. EDMS EDMS
--- NOTE | 2024-01-29 15:53 | ER ---
Nurse's Notes [facility] Name: Shea Campbell Age: 78 yrs Sex: Male : 1945 Arrival Date: 01/29/2024 Time: 12:17 Bed 15 Private MD: Diagnosis: Altered mental status, unspecified Presentation: 01/28 12:26 Chief complaint: EMS states: they were toned out to [facility] for AMS worse than kc6 baseline. Coronavirus screen: At this time, the client does not indicate any symptoms associated with coronavirus-19. Ebola Screen: No symptoms or risks identified at this time. Initial Sepsis Screen: Does the patient meet any 2 criteria? Altered Mental Status. Does the patient have a suspected source of infection? No. Patient's initial sepsis screen is negative. Risk Assessment: Do you want to hurt yourself or someone else? Unable to obtain. Onset of symptoms was January 29, 2024. 12:26 Method Of Arrival: EMS: [facility] 12:26 Acuity: LELA 3 kc6 Historical: - Allergies: 12:31 No Known Allergies; kc6 - PMHx: 12:31 Alzheimer's disease; angina pectoris; Bipolar disorder; BPH; depressive disorder; kc6 Hyperlipidemia; Hypertension; Thyroid problem; Anxiety; - PSHx: 12:31 Unable to Obtain; kc6 - Immunization history:: Adult Immunizations unknown. - Infectious Disease History:: Denies. - Social history:: Smoking status: unknown. Screenin:32 [facility] ED Fall Risk Assessment (Adult) History of falling in the last 3 months, kc6 including since admission Yes- fall prone (multiple falls) (3 pts) Confusion or Disorientation Yes (5 pts) Intoxicated or Sedated No (0 pts) Impaired Gait Yes (1 pt) Mobility Assist Device Used Yes (1 pt) Altered Elimination No (0 pt) Score/Fall Risk Level 3 or more points = High Risk Oriented to surroundings, Maintained a safe environment, Educated pt \T\ family on fall prevention, incl call for assistance when getting out of bed. Abuse screen: Denies threats or abuse. Denies injuries from another. Nutritional screening: No deficits noted. Tuberculosis screening: No symptoms or risk factors identified. Assessment: 12:32 General: Appears in no apparent distress. comfortable, well groomed, well developed, kc6 Behavior is drowsy. Pain: Unable to use pain scale. Patient is disoriented. Neuro: Level of Consciousness is confused, lethargic, Oriented to person, Appropriate for age. Cardiovascular: Capillary refill < 3 seconds. Respiratory: Airway is patent Trachea midline Respiratory effort is even, unlabored, Respiratory pattern is regular, symmetrical. GI: No signs and/or symptoms were reported involving the gastrointestinal system. abd binder in place. : No signs and/or symptoms were reported regarding the genitourinary system. Lala in place to gravity drainage clamped nephrostomy tube to the LL back Urine is cloudy. EENT: Sclera/Cornea are reddened in BASSEM eyes. Derm: No signs and/or symptoms reported regarding the dermatologic system. Skin is intact, is healthy with good turgor, Skin is pink, warm \T\ dry. Musculoskeletal: No signs and/or symptoms reported regarding the musculoskeletal system. Circulation, motion, and sensation intact. Capillary refill < 3 seconds, Range of motion: intact in all extremities. 14:18 Reassessment: Patient appears in no apparent distress at this time. No changes from kc6 previously documented assessment. Patient and/or family updated on plan of care and expected duration. Pain level reassessed. 15:18 Reassessment: Patient appears in no apparent distress at this time. No changes from kc6 previously documented assessment. Patient and/or family updated on plan of care and expected duration. Pain level reassessed. 16:18 Reassessment: Patient appears in no apparent distress at this time. No changes from kc6 previously documented assessment. Patient and/or family updated on plan of care and expected duration. Pain level reassessed. 16:50 Reassessment: report given to [facility] , will arrange transportation back to facility. 17:18 Reassessment: Patient appears in no apparent distress at this time. No changes from kc6 previously documented assessment. Patient and/or family updated on plan of care and expected duration. Pain level reassessed. 18:18 Reassessment: Patient appears in no apparent distress at this time. No changes from kc6 previously documented assessment. Patient and/or family updated on plan of care and expected duration. Pain level reassessed. 19:00 Reassessment: Patient appears in no apparent distress at this time. Patient and/or bm8 family updated on plan of care and expected duration. Pain level reassessed. pt is resting with eyes closed breathing is even unlabored with symmetrical rise and fall of chest. [facility] stated that transport should be here by 1930. 19:00 Reassessment: chief unit forester informed this nurse that [facility] will be here in 30min kc6 to milk pickup driver the pt. Vital Signs: 12:26 BP 129 / 85; Pulse 67; Resp 18 S; Temp 98.8(O); Pulse Ox 99% on R/A; Weight 87.54 kg kc6 (M); 14:18 BP 119 / 79; Pulse 70; Resp 15 S; Pulse Ox 100% on R/A; kc6 18:51 BP 104 / 79; Pulse 64; Resp 15 S; Pulse Ox 97% on R/A; kc6 19:00 BP 130 / 74; Pulse 59; Resp 17; Temp 98.8; Pulse Ox 98% on R/A; Pain 0/10; bm8 19:00 Pain Scale: Adult bm8 [place] Coma Score: 19:00 Eye Response: to voice(3). Motor Response: obeys commands(6). Verbal Response: bm8 confused(4). Total: 13. ED Course: 12:18 Patient arrived in ED. sb4 12:18 Dariel[facility]endiz [facility]. sb4 12:18 Spencer Navarro MD is Attending Physician. sb4 12:25 Brooklynn Spence, JOANNA is Primary Nurse. me1 12:31 Triage completed. kc6 12:31 Spencer Navarro MD is Attending Physician. ec2 12:31 Arm band placed on. kc6 12:31 Patient has correct armband on for positive identification. Bed in low position. Call kc6 light in reach. Side rails up X2. Pulse ox on. NIBP on. Door closed. Noise minimized. Lights dimmed. Warm blanket given. Pillow given. 12:31 Patient maintains SpO2 saturation greater than 95% on room air. kc6 12:33 Rea Hunt, JOANNA is Primary Nurse. kc6 13:04 Urinalysis w/ reflexes Sent. kc6 13:09 AMMONIA Sent. kc6 13:46 CT Head Brain wo Cont In Process Unspecified. EDMS 13:46 CT Abd/Pelvis - IV Contrast Only In Process Unspecified. EDMS 19:00 Report received from JOANNA asencio. bm8 19:00 Provided Education on: post er care. bm8 19:00 Report given to JOANNA Styles. kc6 19:00 No provider procedures requiring assistance completed. IV discontinued, intact, bm8 bleeding controlled, No redness/swelling at site. Pressure dressing applied. Administered Medications: No medications were administered Medication: 19:00 VIS not applicable for this client. bm8 Outcome: 15:53 Discharge ordered by . ec2 19:51 Discharged to [facility]. Transfer form completed. bm8 19:51 Condition: stable 19:51 Discharge instructions given to EMS, Instructed on discharge instructions, follow up and referral plans. medication usage, Demonstrated understanding of instructions, follow-up care, medications, Prescriptions given X 1, 19:52 Patient left the ED. bm8 Signatures: Dispatcher [employer] Elsy Laguna, Rea Lobato RN, RN RN kc6 Dariela Resendiz, PAYani PA-Lázaro sb4 Brooklynn Spence RN RN me1 Spencer Navarro MD MD 2 Jensen Tirado RN RN bm8 Corrections: (The following items were deleted from the chart) 13:05 12:32 GI: No signs and/or symptoms were reported involving the gastrointestinal system. kc6 kc6 13:05 12:32 : No signs and/or symptoms were reported regarding the genitourinary system. [id number]
[2024-01-29 21:27] VITALS: TEMP 98.8
[2024-01-29 21:31] VITALS: BP 130/74; O2SAT 98
== END 2024-01-29 19:52 | disposition home or self-care (01) ==
LOC: ER 12:17
DX: R41.82 Altered mental status, unspecified (principal); G30.9 Alzheimer's disease, unspecified; F02.80 Dementia in other diseases classified elsewhere, unspecified severity, without behavioral disturbance, psychotic disturbance, mood disturbance, and anxiety; I10 Essential (primary) hypertension; E78.5 Hyperlipidemia, unspecified; N40.0 Benign prostatic hyperplasia without lower urinary tract symptoms; F31.9 Bipolar disorder, unspecified; F41.9 Anxiety disorder, unspecified; Z11.52 Encounter for screening for COVID-19
CPT/HCPCS: 87088; 85025; 81001; 87086; 80048; 36415; 82140; 83735; 85610; 80076; 85730; 87077; 87186; 84484; 87804 ×2; 70450; 74177; 99284; 87811; Q9967

== ENCOUNTER 2024-02-15 02:47 | Emergency (ER) | payer OTHER ==
[2024-02-15 03:56] LABS: Absolute Basophils 0.1 K/uL (0-0.5); Absolute Eosinophils 0.5 K/uL (0-0.5); Absolute Lymphocytes (CBC) 1.2 K/uL (0.7-4.9); Absolute Neutrophil 8.6 K/uL (1.8-8.0); Basophils % 0.5 % (0-1.3); Eosinophils % 4.2 % (0-4.4); Hematocrit 43.4 % (39.6-49.0); Hemoglobin 14.5 g/dL (13.6-17.9); Lymphocytes % 10.7 % (15.3-44.8); MCHC 33.5 g/dL (32.0-36.0); MCV 89.5 fL (80-100); MPV 7.4 fL (7.6-11.3); Monocytes % 9.2 % (3.3-12.3); Neutrophils % 75.4 % (41.7-73.7); Nucleated Red Blood Cells % 0.2 % (0-0); Platelets 238 thou/uL (152-406); RBC Red Blood Cell Count 4.85 M/uL (4.33-5.43); Red Cell Distribution Width 14.3 % (12.1-15.2)
[2024-02-15 04:11] LABS: Specific Gravity 1.019 (1.005-1.030); Sqamous Epithelial <5 /HPF (None Seen); Urine Bacteria 20-50 /HPF (<20); Urine Bilirubin NEGATIVE (Negative); Urine Blood Negative (Negative); Urine Clarity Extremely Turbid (Clear); Urine Color Light-Orange (Yellow); Urine Crystals Unidentified Many /HPF (None Seen); Urine Culture Reflex Order REFLEXED; Urine Glucose NEGATIVE (Negative); Urine Ketones NEGATIVE (Negative); Urine Microscopic Reflex YN ORDER UMIC; Urine Mucus Slight /HPF (None Seen); Urine Nitrite NEGATIVE (Negative); Urine Protein 4+ (Over) (Negative); Urine RBC None Seen /HPF (None Seen); Urine Urobilinogen Normal (Normal); Urine WBC 20-50 /HPF (<5); Urine pH 8.5 (5.0-7.0)
[2024-02-15 04:12] LABS: Albumin 3.1 g/dL (3.4-5.0); Albumin/Globulin Ratio 0.7 (1.1-1.8); Bilirubin Total 0.6 mg/dL (0.2-1.0); Globulin 4.4 g/dL (2.3-3.5); Protein, Total 7.5 g/dL (6.4-8.2)
[2024-02-15] MEDS ORDERED: CEFEPIME 2 GM VIAL ONE (04:38)
[2024-02-15] MEDS ORDERED: NA CHLORIDE 0.9% 100 ML ONE (04:38)
[2024-02-15] MEDS ORDERED: NA CHLORIDE 0.9% 1,000 ML ONE (04:38)
--- NOTE | 2024-02-15 05:25 | RAD REPORT ---
EXAM DESCRIPTION: Abdomen Pelvis Wo Contrast RadLex: CT ABDOMEN PELVIS WITHOUT IV CONTRAST CLINICAL HISTORY: 78 years Male; left nephrostomy partially out ;Abd pain; NO CONTRAST Bed Name: 7 TECHNIQUE: CT of the abdomen and pelvis without contrast. All CT scans at this facility use dose modulation, iterative reconstruction, and/or weight based dosi ng when appropriate to reduce radiation dose to as low as reasonably achievable. COMPARISON: CT abdomen pelvis 01/29/2024. FINDINGS: Lower thorax: Bibasilar atelectasis. Coronary artery calcifications. Abdomen: Stomach: Within normal limits Liver: No focal lesions. No intrahepatic ductal distention. Gallbladder: Surgically absent. Pancreas: Within normal limits Spleen: Within normal limits Right kidney: No hydronephrosis. No renal or ureteral calculi. Left kidney: Not visualized, likely surgically absent. Of the tip of the left percutaneous nephrostom y tube has been intervally displaced posteriorly and inferiorly compared to 01/29/2024, with tip now located external to the renal parenchyma, specifically within the left lower abdominal mesentery. Sev ere left hydroureteronephrosis. No renal or ureteral calculi. Adrenal glands: Within normal limits Vascular structures: Atherosclerosis of the abdominal aorta and major branches. Lymph nodes: No lymphadenopathy by size criteria Pelvis: Small bowel: No significant distention. Appendix: Within normal limits Colon: No distention or acute pericolonic edema. Peritoneum: No free intraperitoneal fluid or air. Multiple surgical clips in the right retroperiton eum. Bones: No acute bone findings. Unchanged appearance of L1 compression deformity with superimposed chika ent augmentation changes. Bladder: Mild diffuse wall thickening. Reproductive organs: No acute findings. Soft tissues: Tiny fat-containing bilateral inguinal hernias. Note that evaluation of the bowel and solid organs is somewhat limited due to lack of intravenous and oral contrast. IMPRESSION: 1. Interval posterior and inferior displacement of the tip of the left percutaneous nephrostomy tub e compared to 01/29/2024, with tip now located external to the renal parenchyma, specifically within the left lower abdominal mesentery. Severe left hydroureteronephrosis. 2. Mild diffuse bladder wall thickening, can be seen in setting of cystitis. Correlate with urinaly sis. Electronically signed by: Georges Lorenzana MD 02/15/2024 04:58 AM [employer]IST Z9 Due to temporary technical issues with the PACS/Powerscribe reporting system, reports are being andi d by the in-house radiologist without review as a courtesy to ensure prompt reporting the interpreting radiologist is fully responsible for the content of the report. Transcribed Date/Time: 02/15/2024 5:25 AM
--- NOTE | 2024-02-15 06:08 | ER ---
Nurse's Notes [facility] [place] Name: Shea Campbell Age: 78 yrs Sex: Male : 1945 Arrival Date: 02/15/2024 Time: 02:47 Bed 7 Private MD: Diagnosis: Left hydroureteronephrosis , dislodged left percutaneous nephrostomy Presentation: 02/14 03:00 Chief complaint: EMS states: Pt pulled out Lt nephrostomy tube. NH RN unsure of when it dd2 was placed and when pt pulled out. Coronavirus screen: At this time, the client does not indicate any symptoms associated with coronavirus-19. Ebola Screen: No symptoms or risks identified at this time. Initial Sepsis Screen: Does the patient meet any 2 criteria? No. Patient's initial sepsis screen is negative. Does the patient have a suspected source of infection? No. Patient's initial sepsis screen is negative. Risk Assessment: Do you want to hurt yourself or someone else? Unable to obtain. Onset of symptoms is unknown. 03:00 Method Of Arrival: EMS: [facility] dd2 03:00 Acuity: LELA 3 dd2 Triage Assessment: 03:04 General: Appears in no apparent distress. Behavior is calm, cooperative. Pain: Unable dd2 to use pain scale. Does not appear to understand pain scale. EENT: No deficits noted. No signs and/or symptoms were reported regarding the EENT system. Neuro: Level of Consciousness is awake, obeys commands, confused, Oriented to person. Cardiovascular: Patient's skin is warm and dry. Respiratory: Airway is patent Respiratory effort is even, unlabored, Respiratory pattern is regular, symmetrical. GI: No deficits noted. No signs and/or symptoms were reported involving the gastrointestinal system. Abdomen is non-distended, Abd is soft and non tender X 4 quads. : dislodged Lt nephrostomy tube. Derm: Skin temperature is warm REDNESS NOTED AROUND NEPHROSTOMY TUBE OPENING TO LT FLANK. Musculoskeletal: No deficits noted. No signs and/or symptoms reported regarding the musculoskeletal system. Circulation, motion, and sensation intact. Range of motion: intact in all extremities. Historical: - Allergies: 03:04 No Known Allergies; dd2 - PMHx: 03:04 Alzheimer's disease; angina pectoris; Anxiety; Bipolar disorder; BPH; depressive dd2 disorder; Hyperlipidemia; Hypertension; Thyroid problem; hydronephrosis with ureteral stricture (Thyroid problem); - PSHx: 03:04 nephrostomy tube (Thyroid problem); dd2 - Immunization history:: Adult Immunizations unknown. - Infectious Disease History:: unknown. - Social history:: Smoking status: unknown. - Family history:: not pertinent. Screenin:09 [facility] ED Fall Risk Assessment (Adult) History of falling in the last 3 months, dd2 including since admission No falls in past 3 months (0 pts) Confusion or Disorientation Yes (5 pts) Intoxicated or Sedated No (0 pts) Impaired Gait No (0 pts) Mobility Assist Device Used Yes (1 pt) Altered Elimination Yes (1 pt) Score/Fall Risk Level 3 or more points = High Risk Oriented to surroundings, Maintained a safe environment, Educated pt \T\ family on fall prevention, incl call for assistance when getting out of bed, Assessed \T\ reinforced patient's understanding of fall precautions, Hourly rounding (assess needs \T\ fall precautionary measures) done. Abuse screen: Denies threats or abuse. Nutritional screening: No deficits noted. Tuberculosis screening: No symptoms or risk factors identified. Assessment: 03:09 Reassessment: SEE TRIAGE ASSESSMENT FOR FULL ASSESSMENT. dd2 07:16 Reassessment: REPORT GIVEN TO JOANNA VIDES. dd2 08:18 General: Appears in no apparent distress. Behavior is calm, cooperative, appropriate ll1 for age. Pain: Denies pain. : Reports nephrostomy tube dislodged. 09:50 Reassessment: No changes from previously documented assessment. Patient and/or family ll1 updated on plan of care and expected duration. Pain level reassessed. Patient is alert, oriented x 3, equal unlabored respirations, skin warm/dry/pink. Vital Signs: 03:00 BP 126 / 80; Pulse 74; Resp 16; Temp 97.9; Pulse Ox 98% ; Weight 86.18 kg; dd2 04:04 BP 107 / 81; Pulse 59; Resp 17; Pulse Ox 95% on R/A; dd2 05:32 BP 110 / 77; Pulse 92; Resp 17; Pulse Ox 96% on R/A; dd2 07:00 BP 126 / 76; Pulse 61; Resp 17; Pulse Ox 99% ; ll1 08:20 BP 115 / 81; Pulse 61; Resp 17; Temp 97.3; Pulse Ox 100% on R/A; Pain 0/10; ll1 09:50 BP 113 / 89; Pulse 61; Resp 17; Pulse Ox 99% on R/A; Pain 0/10; ll1 08:20 Pain Scale: Adult ll1 09:50 Pain Scale: Adult ll1 ED Course: 02:52 Patient arrived in ED. kmf 02:54 Demetris Perez MD is Attending Physician. sp4 03:00 TYLOR KUMAR, JOANNA is Primary Nurse. dd2 03:04 Triage completed. dd2 03:04 Arm band placed on right wrist. Patient placed in an exam room, on a stretcher, on dd2 pulse oximetry. 03:09 Patient has correct armband on for positive identification. Bed in low position. Call dd2 light in reach. Side rails up X2. Client placed on continuous cardiac and pulse oximetry monitoring. NIBP monitoring applied. Door closed. Noise minimized. Warm blanket given. Pillow given. Verbal reassurance given. 03:09 No provider procedures requiring assistance completed. dd2 03:31 CBC with Diff Sent. dd2 03:31 CMP Sent. dd2 03:31 Lipase Sent. dd2 03:31 Urinalysis w/ reflexes Sent. dd2 03:31 Initial lab(s) drawn, by me, sent to lab. Urine collected: NEPHROSTOMY BAG. Inserted dd2 saline lock: 20 gauge in right antecubital area, using aseptic technique. Blood collected. Flushed with 10 mL NS. Patient maintains SpO2 saturation greater than 95% on room air. 03:39 CT Abd/Pelvis - Without Contrast In Process Unspecified. EDMS 04:35 Lactate w/ 2H reflex if indic. Sent. ay 04:36 Blood Culture Adult (2) Sent. ay 06:37 [facility] called to initiate transfer, called twice rang approx 2-3 minutes each and got ty disconnected. 06:43 [facility] called to initiate transfer rang for 5 minutes disconnected. ty 07:01 [facility] called to initiate transfer, spoke with jus. ty 07:[id number] Torrez. ty 07:51 Jus called from [facility] advising delay on bed placement due to pending discharges. ty 09:13 Patient transferred, IV remains in place. ll1 09:14 Provided Education on: need for transfer. ll1 09:17 [facility] called for patient transport. ty Administered Medications: 05:01 Drug: NS 0.9% IV 1000 ml IV at 1000 ml once; to be given as a bolus over 60 minutes ay Route: IV; Rate: 1000 ml; Site: right antecubital; 08:21 Follow up: Response: No adverse reaction; IV Status: Completed infusion; IV Intake: ll1 1000ml 05:02 Drug: Cefepime IVPB 2 grams IVPB at 200 ml/hr once over 30 mins; (mix in NS 100 mL) ay Route: IVPB; Rate: 200 ml/hr; Infused Over: 30 mins; Site: right antecubital; 08:21 Follow up: Response: No adverse reaction; IV Status: Completed infusion; IV Intake: ll1 100ml Medication: 03:09 VIS not applicable for this client. dd2 Intake: 08:21 IV: 1000ml; Total: 1000ml. ll1 08:21 IV: 100ml; Total: 1100ml. 1 Outcome: 06:08 ER care complete, transfer ordered by MD. choudhury 08:21 Condition: stable ll1 08:21 Instructed on the need for transfer, 09:13 Transferred by ground EMS to [facility], Transfer form completed. ll1 Note: Report called to Aniket Haynes RN at [facility] 09:55 Patient left the ED. ll1 Addendum: 02/20/2024 07:46 Addendum: Culture Results: Positive urine culture. faxed positive culture report to trina Paul RN at [facility] 15 tower pt in [phone]/ faxed to [phone]. Signatures: Dispatcher [employer] EDMS Holli More Lynsay, RN RN ll1 Demetris Perez MD MD sp4 Forrester, Kelsey Maroul [facility] Sean Rodriguez DIANA, RN RN dd2 Mary Carney RN RN ay Corrections: (The following items were deleted from the chart) 02/14 04:04 03:04 Derm: No signs and/or symptoms reported regarding the dermatologic system. Skin dd2 temperature is warm dd2 05:36 05:32 BP 110 / 77; Pulse 52bpm; Resp 17bpm; Pulse Ox 96% RA; dd2 dd2
--- NOTE | 2024-02-15 06:08 | EDPHYS ---
Physician Documentation [facility] Name: Shea Campbell Age: 78 yrs Sex: Male : 1945 Arrival Date: 02/15/2024 Time: 02:47 Bed 7 Private MD: ED Physician Demetris Perez HPI: 02/14 06:01 This 78 yrs old Male presents to ER via EMS with complaints of dislodged left sp4 nephrostomy. 06:03 [facility] 78-year-old male who is nonverbal with history of moderate to severe Alzheimer's sp4 type dementia, history of anxiety bipolar disorder BPH depressive disorder also history of moderate to severe left-sided hydronephrosis diagnosed here on 01/01/2024. Patient subsequently was transferred to [facility] where he was given left percutaneous nephrostomy. Today patient presents by EMS or care home with report of accidental dislodgment of the left nephrostomy tube. custodial nurse reported partial to pull out with some tube still located in the left flank. Patient himself is nonverbal and not able to provide any history.. Historical: - Allergies: 03:04 No Known Allergies; dd2 - PMHx: 03:04 Alzheimer's disease; angina pectoris; Anxiety; Bipolar disorder; BPH; depressive dd2 disorder; Hyperlipidemia; Hypertension; Thyroid problem; hydronephrosis with ureteral stricture (Thyroid problem); - PSHx: 03:04 nephrostomy tube (Thyroid problem); dd2 - Immunization history:: Adult Immunizations unknown. - Infectious Disease History:: unknown. - Social history:: Smoking status: unknown. - Family history:: not pertinent. ROS: 06:03 Constitutional: Negative for fever, chills, and weight loss, negative for any sp4 complaints 06:03 All other systems are negative, 06:03 Unable to obtain ROS due to baseline dementia, sp4 Exam: 06:03 Constitutional: This is a well developed, well nourished patient who is awake, patient sp4 is physically debilitated nonverbal male with signs of moderate to severe dementia. Head/Face: Normocephalic, atraumatic. Eyes: Pupils equal round and reactive to light, extra-ocular motions intact. Lids and lashes normal. Conjunctiva and sclera are not injected. Cornea within normal limits. Periorbital areas with no swelling, redness, or edema. ENT: Nares patent. No nasal discharge, no septal abnormalities noted. Tympanic membranes are normal and external auditory canals are clear. Oropharynx with no redness, swelling, or masses, exudates, or evidence of obstruction, uvula midline. Mucous membranes moist. Neck: Trachea midline, no thyromegaly or masses palpated, and no cervical lymphadenopathy. Supple, full range of motion without nuchal rigidity, or vertebral point tenderness. Chest/axilla: Normal chest wall appearance and motion. Nontender with no deformity. No lesions are appreciated. Cardiovascular: Regular rate and rhythm with a normal S1 and S2. No gallops, murmurs, or rubs. Normal PMI, no JVD. No pulse deficits. Respiratory: Lungs have equal breath sounds bilaterally, clear to auscultation and percussion. No rales, rhonchi or wheezes noted. No increased work of breathing, no retractions or nasal flaring. Abdomen/GI: Soft, with normal bowel sounds. No distension or tympany. No guarding or rebound. No evidence of tenderness throughout. Back: No spinal tenderness. No costovertebral tenderness. Left percutaneous nephrostomy appears to be partially dislodged. Some length of nephrostomy is still located in the left flank Skin: Warm, dry with normal turgor. Normal color with no rashes, no lesions, and no evidence of cellulitis. MS/ Extremity: Pulses equal, no cyanosis. Neurovascular intact. Full, normal range of motion. Neuro: Awake and alert, not oriented, nonverbal appearing, moderate severe physical debility Vital Signs: 03:00 BP 126 / 80; Pulse 74; Resp 16; Temp 97.9; Pulse Ox 98% ; Weight 86.18 kg; dd2 04:04 BP 107 / 81; Pulse 59; Resp 17; Pulse Ox 95% on R/A; dd2 05:32 BP 110 / 77; Pulse 92; Resp 17; Pulse Ox 96% on R/A; dd2 07:00 BP 126 / 76; Pulse 61; Resp 17; Pulse Ox 99% ; ll1 08:20 BP 115 / 81; Pulse 61; Resp 17; Temp 97.3; Pulse Ox 100% on R/A; Pain 0/10; ll1 09:50 BP 113 / 89; Pulse 61; Resp 17; Pulse Ox 99% on R/A; Pain 0/10; ll1 08:20 Pain Scale: Adult ll1 09:50 Pain Scale: Adult ll1 MDM: 03:03 Medical Screening Exam initiated sp4 06:02 ED course: EXAM DESCRIPTION: Abdomen Pelvis Wo Contrast RadLex: CTABDOMEN PELVIS sp4 WITHOUT IV CONTRAST CLINICAL HISTORY: 78 years Male; left nephrostomy partially out ;Abd pain; NO CONTRAST Bed Name: 7 TECHNIQUE: CT of the abdomen and pelvis without contrast. All CT scans at this facility use dose modulation, iterative reconstruction, and/or weight based dosing when appropriate to reduce radiation dose to as low as reasonably achievable. COMPARISON: CT abdomen pelvis 01/29/2024. FINDINGS: Lower thorax: Bibasilar atelectasis. Coronary artery calcifications. Abdomen: Stomach:Within normal limits Liver:No focal lesions. No intrahepatic ductal distention. Gallbladder:Surgically absent. Pancreas:Within normal limits Spleen:Within normal limits Right kidney:No hydronephrosis. No renal or ureteral calculi. Left kidney:Not visualized, likely surgically absent. Of the tip of the left percutaneous nephrostomy tube has been intervally displaced posteriorly and inferiorly compared to 01/29/2024, with tip now located external to the renal parenchyma, specifically within the left lower abdominal mesentery. Severe left hydroureteronephrosis. No renal or ureteral calculi. Adrenal glands:Within normal limits Vascular structures:Atherosclerosis of the abdominal aorta and major branches. Lymph nodes:No lymphadenopathy by size criteria Pelvis: Small bowel:No significant distention. Appendix:Within normal limits Colon:No distention or acute pericolonic edema. Peritoneum: No free intraperitoneal fluid or air. Multiple surgical clips in the right retroperitoneum. Bones: No acute bone findings. Unchanged appearance of L1 compression deformity with superimposed cement augmentation changes. Bladder: Mild diffuse wall thickening. Reproductive organs: No acute findings. Soft tissues: Tiny fat-containing bilateral inguinal hernias. Note that evaluation of the bowel and solid organs is somewhat limited due to lack of intravenous and oral contrast. IMPRESSION: 1. Interval posterior and inferior displacement of the tip of the left percutaneous nephrostomy tube compared to 01/29/2024, with tip now located external to the renal parenchyma, specifically within the left lower abdominal mesentery. Severe left hydroureteronephrosis. 2. Mild diffuse bladder wall thickening, can be seen in setting of cystitis. Correlate with urinalysis.. 06:06 Differential Diagnosis altered mental status, sepsis, flu, Left percutaneous sp4 nephrostomy dislodged . Data reviewed: vital signs, nurses notes, EMS record, old medical records, lab test result(s), radiologic studies, CT scan. Consideration of Admission/Observation Escalation of care including admission/observation considered. Management of patient was discussed with the following: Dry Curer: [facility] urologist and hospitalist. ED course: Patient stable for transfer via EMS to [facility]. 02/14 03:05 Order name: CBC with Diff; Complete Time: 04:12 sp4 02/14 03:05 Order name: CMP; Complete Time: 05:57 sp4 02/14 03:05 Order name: Lipase; Complete Time: 05:57 sp4 02/14 03:05 Order name: Urinalysis w/ reflexes; Complete Time: 05:57 sp4 02/14 04:12 Order name: Blood Culture Adult (2) sp4 02/14 04:12 Order name: Lactate w/ 2H reflex if indic.; Complete Time: 05:57 sp4 02/14 04:17 Order name: Urine Culture EDIA 02/14 03:05 Order name: CT Abd/Pelvis - Without Contrast; Complete Time: 02:58 sp4 02/14 03:05 Order name: IV Saline Lock; Complete Time: 03:31 sp4 02/14 03:05 Order name: Labs collected and sent; Complete Time: 03:31 sp4 Administered Medications: 05:01 Drug: NS 0.9% IV 1000 ml IV at 1000 ml once; to be given as a bolus over 60 minutes ay Route: IV; Rate: 1000 ml; Site: right antecubital; 08:21 Follow up: Response: No adverse reaction; IV Status: Completed infusion; IV Intake: ll1 1000ml 05:02 Drug: Cefepime IVPB 2 grams IVPB at 200 ml/hr once over 30 mins; (mix in NS 100 mL) ay Route: IVPB; Rate: 200 ml/hr; Infused Over: 30 mins; Site: right antecubital; 08:21 Follow up: Response: No adverse reaction; IV Status: Completed infusion; IV Intake: ll1 100ml Disposition Summary: 02/15/24 06:08 Transfer Ordered Notes: Transfer Location: [facility] sp4 Reason: Higher level of care sp4 Condition: Stable sp4 Problem: new sp4 Symptoms: have improved sp4 Accepting Physician: Roosevelt Cook attending (02/15/24 09:55) ll1 Diagnosis - Left hydroureteronephrosis , dislodged left percutaneous nephrostomy sp4 Forms: - Medication Reconciliation Form sp4 - SBAR form sp4 Signatures: Dispatcher [employer] EDMS Jacinda Bauer RN RN ll1 Demetris Perez MD MD sp4 TYLOR KUMAR RN RN dd2 Mary Carney RN RN ay Corrections: (The following items were deleted from the chart) 03:05 03:05 CBC+H.LAB.BRZ ordered. EDMS EDMS 03:05 03:05 COMPREHENSIVE METABOLIC PANEL+C.LAB.BRZ ordered. EDMS EDMS 03:05 03:05 LIPASE+C.LAB.BRZ ordered. EDMS EDMS 03:05 03:05 Urinalysis+U.LAB.BRZ ordered. EDMS EDMS 03:05 03:05 Abdomen Pelvis Wo Con+CT.RAD.BRZ ordered. EDMS EDMS 09:55 06:[address] [facility] [address] Barrera attending sp4 ll1
[2024-02-15 10:38] VITALS: TEMP 97.3
[2024-02-15 10:41] VITALS: BP 113/89; O2SAT 99
== END 2024-02-15 09:55 | disposition short-term general hospital (02) ==
LOC: ER 02:47
DX: N13.30 Unspecified hydronephrosis (principal); T83.022A Displacement of nephrostomy catheter, initial encounter; G30.9 Alzheimer's disease, unspecified; F02.80 Dementia in other diseases classified elsewhere, unspecified severity, without behavioral disturbance, psychotic disturbance, mood disturbance, and anxiety; N40.0 Benign prostatic hyperplasia without lower urinary tract symptoms; F32.A Depression, unspecified; E78.5 Hyperlipidemia, unspecified; I10 Essential (primary) hypertension
CPT/HCPCS: 96365; 87040 ×2; 87088; 85025; 81001; 87086; 36415; 83605; 87077 ×2; 87186 ×2; 83690; 80053; 74176; 99285; 96366; J0692; J7030

== ENCOUNTER 2024-03-12 14:30 | Emergency (ER) | payer OTHER ==
[2024-03-12 15:03] LABS: Absolute Basophils 0.1 K/uL (0-0.5); Absolute Eosinophils 0.1 K/uL (0-0.5); Absolute Lymphocytes (CBC) 0.9 K/uL (0.7-4.9); Absolute Monocytes 0.8 K/uL (0.1-1.3); Absolute Neutrophil 7.3 K/uL (1.8-8.0); Basophils % 0.6 % (0-1.3); Eosinophils % 0.6 % (0-4.4); Hematocrit 40.7 % (39.6-49.0); Hemoglobin 13.3 g/dL (13.6-17.9); Lymphocytes % 9.6 % (15.3-44.8); MCH 28.9 pg (27.0-35.0); MCHC 32.8 g/dL (32.0-36.0); MCV 88.2 fL (80-100); MPV 7.4 fL (7.6-11.3); Monocytes % 8.5 % (3.3-12.3); Neutrophils % 80.7 % (41.7-73.7); Nucleated Red Blood Cells % 0.1 % (0-0); Platelets 262 thou/uL (152-406); RBC Red Blood Cell Count 4.62 M/uL (4.33-5.43); Red Cell Distribution Width 14.8 % (12.1-15.2)
[2024-03-12 15:17] LABS: Albumin 2.9 g/dL (3.4-5.0); Albumin/Globulin Ratio 0.6 (1.1-1.8); Anion Gap 7.3 mEq/L (5.0-15.0); Bilirubin Total 0.5 mg/dL (0.2-1.0); Globulin 4.7 g/dL (2.3-3.5); Potassium 4.3 mEq/L (3.5-5.1); Protein, Total 7.6 g/dL (6.4-8.2)
--- NOTE | 2024-03-12 15:22 | RAD REPORT ---
EXAMINATION: CT ABDOMEN AND PELVIS WITHOUT CONTRAST CLINICAL INDICATION: Abdominal pain. Possible nephrostomy tube malposition TECHNIQUE: CT abdomen and pelvis was performed, as per department protocol. IV contrast and oral was not administered.Axial, sagittal and coronal reconstructions were obtained. One or more of the following dose reduction techniques were used: Automated exposure control, adjustment of the mA and/o r kV according to the patient size, and/or iterative reconstruction. Unless otherwise specified, incidental findings do not require dedicated imaging follow-up. [id number]. COMPARISON: January 2024. FINDINGS: The lack of intravenous and oral contrast limits evaluation of solid organs, vessels and bowel. The nephrostomy tube has migrated laterally. It lies completely outside of the abdomen. The distal as pect of the catheter lies within the left lateral abdominal wall musculature. Marked left hydronephrosis and hydroureter present. Bladder is distended. Right nephrectomy. Cholecystectomy. Liver, spleen, pancreas and adrenals grossly normal. Cement within an old marked old compression fracture L1 vertebral body. No evidence of diverticulitis. Small inguinal hernias IMPRESSION: Malpositioned left nephrostomy tube. The distal aspect of the tube lies within the musculature of the left lateral abdominal wall. Marked left hydronephrosis and left hydroureter
--- NOTE | 2024-03-12 16:08 | EDPHYS ---
Physician Documentation [facility] Name: Shea Campbell Age: 78 yrs Sex: Male : 1945 Arrival Date: 03/12/2024 Time: 14:30 Bed 13 Private MD: ED Physician Estrada Curtis HPI: 03/12 18:22 This 78 yrs old Male presents to ER via EMS with complaints of Problem With Urinary rt Catheter. 18:22 History limited due to patient with advanced dementia. Patient has a solitary kidney, rt has had a left-sided nephrostomy tube for the past 2 months, recently replaced about 2 weeks ago secondary to dislodgment. The [facility]p reports that the patient has had no output from the nephrostomy site, believes that has been dislodged. No other restrictively obtained, symptoms are moderate severity, no other aggravating elevating factors.. Historical: - Allergies: 14:39 No Known Allergies; kc6 - PMHx: 14:39 Alzheimer's disease; angina pectoris; Anxiety; Bipolar disorder; BPH; depressive kc6 disorder; hydronephrosis with ureteral stricture (Thyroid problem); Hyperlipidemia; Hypertension; Thyroid problem; - PSHx: 14:39 Nephrostomy tube (d ); kc6 - Immunization history:: Adult Immunizations up to date. - Infectious Disease History:: Denies. - Social history:: Smoking status: unknown. - Family history:: not pertinent. ROS: 18:22 Unable to obtain ROS due to baseline dementia, rt Exam: 18:22 Constitutional: This is a well developed, well nourished patient who is awake, alert, rt and in no acute distress. Chest/axilla: Normal chest wall appearance and motion. Nontender with no deformity. No lesions are appreciated. Cardiovascular: Regular rate and rhythm with a normal S1 and S2. No gallops, murmurs, or rubs. Normal PMI, no JVD. No pulse deficits. Respiratory: Lungs have equal breath sounds bilaterally, clear to auscultation and percussion. No rales, rhonchi or wheezes noted. No increased work of breathing, no retractions or nasal flaring. Abdomen/GI: Soft, non-tender, with normal bowel sounds. No distension or tympany. No guarding or rebound. No evidence of tenderness throughout. Skin: Warm, dry with normal turgor. Normal color with no rashes, no lesions, and no evidence of cellulitis. MS/ Extremity: Pulses equal, no cyanosis. Neurovascular intact. Full, normal range of motion. 18:22 Back: Nephrostomy tube noted, no drainage into the bag, Vital Signs: 14:37 BP 119 / 84; Pulse 70; Resp 16 S; Pulse Ox 97% on R/A; kc6 15:43 BP 115 / 84; Pulse 75; Resp 15 S; Pulse Ox 99% on R/A; kc6 MDM: 14:36 Medical Screening Exam initiated rt 18:22 Differential Diagnosis Dislodged nephrostomy tube. Data reviewed: vital signs, nurses rt notes, lab test result(s), radiologic studies. Consideration of Admission/Observation Patient requires transfer for nephrostomy tube placement. Management of patient was discussed with the following: Full Charge Bookkeeper: Discussed with Dr. Ponce, recommends transfer for nephrostomy, recommends antibiotic treatment as guided by sensitivities from last urine. I considered the following discharge prescriptions or medication management in the emergency department Medications were administered in the Emergency Department. See MAR. Independent interpretation of the following test(s) in the Emergency Department CT Scan: My interpretation is Hydronephrosis seen on interpretation of CT scan images. Care significantly affected by the following chronic conditions: Alzheimer's disease. Counseling: I had a detailed discussion with the patient and/or guardian regarding the historical points, exam findings, and any diagnostic results supporting the discharge/admit diagnosis, lab results, radiology results, the need to transfer to another facility. Response to treatment: There is no appreciated change of the patient's symptoms at this time. 03/12 14:37 Order name: CBC with Diff; Complete Time: 15:23 rt 03/12 14:37 Order name: CMP; Complete Time: 15:23 rt 03/12 14:37 Order name: CT Abd/Pelvis - Without Contrast; Complete Time: 15:23 rt Administered Medications: 16:28 Drug: Cefepime IVPB 2 grams IVPB at 200 ml/hr once over 30 mins; (mix in NS 100 mL) kc6 Route: IVPB; Rate: 200 ml/hr; Infused Over: 30 mins; Site: right forearm; 17:07 Follow up: Response: No adverse reaction; IV Status: Completed infusion; IV Intake: kc6 100ml 17:18 Drug: vancoMYCIN IVPB 1 grams IVPB once over 2 hrs Route: IVPB; Infused Over: 2 hrs; kc6 Site: right forearm; 19:19 Follow up: Response: No adverse reaction; IV Status: Completed infusion; IV Intake: kc6 250ml Disposition Summary: 03/12/24 16:07 Transfer Ordered Notes: Transfer Location: [facility] rt Reason: Higher level of care rt Condition: Stable rt Problem: new rt Symptoms: are unchanged rt Accepting Physician: (03/12/24 20:00) br2 Diagnosis - Dislodged left nephrostomy tube rt Forms: - Medication Reconciliation Form rt - SBAR form rt Signatures: Dispatcher [employer] EDRea Edwards RN RN kc6 Estrada Curtis MD MD rt Imelda Holloway RN RN br2 Corrections: (The following items were deleted from the chart) 14:38 14:37 CBC+H.LAB.BRZ ordered. EDMS EDMS 14:38 14:37 COMPREHENSIVE METABOLIC PANEL+C.LAB.BRZ ordered. EDMS EDMS 20:00 16:07 rt br2
--- NOTE | 2024-03-12 16:08 | ER ---
Nurse's Notes [facility] [place] Name: Shea Campbell Age: 78 yrs Sex: Male : 1945 Arrival Date: 03/12/2024 Time: 14:30 Bed 13 Private MD: Diagnosis: Dislodged left nephrostomy tube Presentation: 03/12 14:37 Chief complaint: EMS states: they were toned out to [place] for decreased urinary kc6 output to his nephrostomy tube. Coronavirus screen: At this time, the client does not indicate any symptoms associated with coronavirus-19. Ebola Screen: No symptoms or risks identified at this time. Initial Sepsis Screen: Does the patient meet any 2 criteria? Altered Mental Status. Does the patient have a suspected source of infection? No. Patient's initial sepsis screen is negative. Risk Assessment: Do you want to hurt yourself or someone else? Patient reports no desire to harm self or others. Onset of symptoms was March 12, 2024. 14:37 Method Of Arrival: EMS: [facility] kc6 14:37 Acuity: LELA 3 kc6 Historical: - Allergies: 14:39 No Known Allergies; kc6 - PMHx: 14:39 Alzheimer's disease; angina pectoris; Anxiety; Bipolar disorder; BPH; depressive kc6 disorder; hydronephrosis with ureteral stricture (Thyroid problem); Hyperlipidemia; Hypertension; Thyroid problem; - PSHx: 14:39 Nephrostomy tube (d ); kc6 - Immunization history:: Adult Immunizations up to date. - Infectious Disease History:: Denies. - Social history:: Smoking status: unknown. - Family history:: not pertinent. Screenin:45 [facility] ED Fall Risk Assessment (Adult) History of falling in the last 3 months, kc6 including since admission No falls in past 3 months (0 pts) Confusion or Disorientation Yes (5 pts) Intoxicated or Sedated No (0 pts) Impaired Gait Yes (1 pt) Mobility Assist Device Used Yes (1 pt) Altered Elimination Yes (1 pt) Score/Fall Risk Level 3 or more points = High Risk Oriented to surroundings, Maintained a safe environment, Educated pt \T\ family on fall prevention, incl call for assistance when getting out of bed. Abuse screen: Denies threats or abuse. Denies injuries from another. Nutritional screening: No deficits noted. Tuberculosis screening: No symptoms or risk factors identified. Assessment: 14:30 General: Appears in no apparent distress. comfortable, well groomed, well developed, kc6 Behavior is calm, cooperative, appropriate for age, drowsy. Pain: Unable to use pain scale. Patient is disoriented. Neuro: Level of Consciousness is obeys commands, confused, Oriented to person, Appropriate for age. Cardiovascular: Capillary refill < 3 seconds. Respiratory: Airway is patent Trachea midline Respiratory effort is even, unlabored, Respiratory pattern is regular, symmetrical. GI: No signs and/or symptoms were reported involving the gastrointestinal system. : Urine is cloudy, nephrostomy tube to left lower back Parent/caregiver report the patient having decreased urinary output. EENT: No signs and/or symptoms were reported regarding the EENT system. Derm: No signs and/or symptoms reported regarding the dermatologic system. Skin is intact, is healthy with good turgor, Skin is pink, warm \T\ dry. Musculoskeletal: No signs and/or symptoms reported regarding the musculoskeletal system. Circulation, motion, and sensation intact. Range of motion: intact in all extremities. 15:30 Reassessment: Patient appears in no apparent distress at this time. No changes from kc6 previously documented assessment. Patient and/or family updated on plan of care and expected duration. Pain level reassessed. 16:30 Reassessment: Patient appears in no apparent distress at this time. No changes from kc6 previously documented assessment. Patient and/or family updated on plan of care and expected duration. Pain level reassessed. 17:30 Reassessment: Patient appears in no apparent distress at this time. No changes from kc6 previously documented assessment. Patient and/or family updated on plan of care and expected duration. Pain level reassessed. 18:30 Reassessment: Patient appears in no apparent distress at this time. No changes from kc6 previously documented assessment. Patient and/or family updated on plan of care and expected duration. Pain level reassessed. spoke with pts regarding POC to transfer to [facility]. verbalizes understanding. report called to JOANNA Rudolph at [facility]. Vital Signs: 14:37 BP 119 / 84; Pulse 70; Resp 16 S; Pulse Ox 97% on R/A; kc6 15:43 BP 115 / 84; Pulse 75; Resp 15 S; Pulse Ox 99% on R/A; kc6 ED Course: 14:36 Patient arrived in ED. bc6 14:36 Estrada Curtis MD is Attending Physician. rt 14:37 Rea Hunt, JOANNA is Primary Nurse. kc6 14:38 Triage completed. kc6 14:39 Arm band placed on. kc6 14:45 Patient has correct armband on for positive identification. Bed in low position. Call kc6 light in reach. Side rails up X2. Pulse ox on. NIBP on. Door closed. Noise minimized. Lights dimmed. Pillow given. 14:45 Initial lab(s) drawn, by me, sent to lab. Inserted saline lock: 22 gauge in right kc6 forearm, using aseptic technique. Blood collected. Flushed with 10 mL NS. Patient maintains SpO2 saturation greater than 95% on room air. 15:01 CT Abd/Pelvis - Without Contrast In Process Unspecified. EDMS 16:28 initiated transfer to [facility]. bd 17:31 pt denied at [facility] and [facility], [facility], and [facility]. bd 17:32 initiated transfer to [facility], pt denied due to all [facility] being on bd transfer closure. 17:35 initiated transfer to [facility]. bd 19:00 Report given to Imelda Holloway RN. kc6 20:00 No provider procedures requiring assistance completed. Patient transferred, IV remains br2 in place. Administered Medications: 16:28 Drug: Cefepime IVPB 2 grams IVPB at 200 ml/hr once over 30 mins; (mix in NS 100 mL) kc6 Route: IVPB; Rate: 200 ml/hr; Infused Over: 30 mins; Site: right forearm; 17:07 Follow up: Response: No adverse reaction; IV Status: Completed infusion; IV Intake: kc6 100ml 17:18 Drug: vancoMYCIN IVPB 1 grams IVPB once over 2 hrs Route: IVPB; Infused Over: 2 hrs; kc6 Site: right forearm; 19:19 Follow up: Response: No adverse reaction; IV Status: Completed infusion; IV Intake: kc6 250ml Medication: 20:00 VIS not applicable for this client. br2 Intake: 17:07 IV: 100ml; Total: 100ml. kc6 19:19 IV: 250ml; Total: 350ml. kc6 Outcome: 16:07 ER care complete, transfer ordered by . rt 20:00 Patient left the ED. br2 20:00 Transferred by ground EMS to other acute care facility: [facility] . Transfer form completed. br2 X-rays sent w/ patient. 20:00 Condition: stable 20:00 Instructed on the need for transfer, Signatures: Dispatcher [employer] EDLyssa Del Rio Kaitlyn RN RN kc6 Estrada Curtis MD MD rt Randa Dumont6 Imelda Holloway RN RN br2
[2024-03-12] MEDS ORDERED: VANCOMYCIN 1 GM/VIAL ONE (16:21)
[2024-03-12] MEDS ORDERED: NA CHLORIDE 0.9% 250 ML ONE (16:21)
[2024-03-12] MEDS ORDERED: CEFEPIME 2 GM VIAL ONE (16:21)
[2024-03-12] MEDS ORDERED: NA CHLORIDE 0.9% 100 ML ONE (16:21)
[2024-03-15 01:39] VITALS: BP 115/84; O2SAT 99
== END 2024-03-12 20:00 | disposition short-term general hospital (02) ==
LOC: ER 14:30
DX: T83.022A Displacement of nephrostomy catheter, initial encounter (principal); G30.9 Alzheimer's disease, unspecified; F02.80 Dementia in other diseases classified elsewhere, unspecified severity, without behavioral disturbance, psychotic disturbance, mood disturbance, and anxiety
CPT/HCPCS: 96365; 96367; 85025; 36415; 80053; 74176; 99285; 96366; J0692; J7050

== ENCOUNTER 2024-04-20 03:50 | Emergency (ER) | payer OTHER ==
[2024-04-20 05:01] LABS: Absolute Basophils 0.1 K/uL (0-0.5); Absolute Eosinophils 0.5 K/uL (0-0.5); Absolute Monocytes 0.8 K/uL (0.1-1.3); Basophils % 0.8 % (0-1.3); Hematocrit 38.7 % (39.6-49.0); Hemoglobin 12.7 g/dL (13.6-17.9); Lymphocytes % 14.2 % (15.3-44.8); MCHC 32.9 g/dL (32.0-36.0); MCV 85.2 fL (80-100); MPV 7.5 fL (7.6-11.3); Monocytes % 10.2 % (3.3-12.3); Neutrophils % 67.8 % (41.7-73.7); Nucleated Red Blood Cells % 0.1 % (0-0); Platelets 231 thou/uL (152-406); RBC Red Blood Cell Count 4.55 M/uL (4.33-5.43); Red Cell Distribution Width 17.2 % (12.1-15.2)
[2024-04-20 05:18] LABS: Albumin/Globulin Ratio 0.6 (1.1-1.8); Anion Gap 8.7 mEq/L (5.0-15.0); Bilirubin Total 0.5 mg/dL (0.2-1.0); Globulin 4.7 g/dL (2.3-3.5); Potassium 3.7 mEq/L (3.5-5.1); Protein, Total 7.7 g/dL (6.4-8.2)
--- NOTE | 2024-04-20 07:07 | RAD REPORT ---
EXAMINATION: CT Abdomen Pelvis Wo Contrast CLINICAL INDICATION: Male, 78 years old. nephrostomy tube placement check TECHNIQUE: CT abdomen and pelvis was performed, without IV contrast, as per department protocol. Axia l, sagittal and coronal reconstructions were obtained. One or more of the following dose reduction techniques were used: Automated exposure control, adjustment of the mA and kV according to the patien t size, and iterative reconstruction. Unless otherwise specified, incidental findings do not require dedicated imaging follow-up. COMPARISON: No prior exam. FINDINGS: The lack of intravenous contrast limits the sensitivity of this exam for evaluation of solid visceral organs, vascular structures, and retroperitoneum. LOWER CHEST: The visualized lung bases are clear. LIVER: Normal in size and contour. No focal lesion. BILIARY SYSTEM: Status post cholecystectomy. SPLEEN: Normal size. No focal lesion. PANCREAS: No mass, ductal dilation, or marlene-pancreatic fluid. ADRENALS: Normal; no mass. KIDNEYS AND URETERS: Status post right nephrectomy. Stable severe left hydroureteronephrosis to the l evel of the left vesicoureteral junction, with no radiopaque calculi. The left percutaneous nephrostomy tube is dislodged, abutting the capsule of the left lower renal pole. Swelling and poorly localized fluid along the left posterior flank muscles seen on prior exam has improved in the interim. No suspicious masses or abnormal collections in the right nephrectomy bed. URINARY BLADDER: Normal contour. Mild pericystic fat stranding, nonspecific, but stable. GASTROINTESTINAL TRACT: No evidence of bowel obstruction, significant free fluid, free air or abscess . APPENDIX: Normal appendix. LYMPH NODES: No lymphadenopathy. MUSCULOSKELETAL: No acute or suspicious osseous abnormality. Sequelae of L1 vertebral compression fra cture prior vertebral augmentation again seen. ADDITIONAL FINDINGS: None. IMPRESSION: Dislodged left cutaneous nephrostomy tube, with loop abutting the capsule of the left lower renal johanna e. Unchanged left severe hydroureteronephrosis. Other stable findings as above.. THIS REPORT CONTAINS FINDINGS THAT MAY BE CRITICAL TO PATIENT CARE. The findings were verbally commun icated via telephone to Estrada Curtis on 04/20/2024 7:03 AM.
--- NOTE | 2024-04-20 07:15 | ER ---
Nurse's Notes [facility] [place] Name: Shea Campbell Age: 78 yrs Sex: Male : 1945 Arrival Date: 04/20/2024 Time: 03:50 Bed 14 Private MD: Diagnosis: Dislodged nephrostomy tube;Acute kidney injury Presentation: 04/20 03:56 Chief complaint: EMS states: no urine output on nephrostomy tube, the last time the rg5 nurse at the [facility] noted with urine ouptput was 2-3 days ago. patient denies pain at this time. Coronavirus screen: Client denies travel out of the [place] in the last 14 days. Ebola Screen: Patient negative for fever greater than or equal to 101.5 degrees Fahrenheit, and additional compatible Ebola Virus Disease symptoms Patient denies exposure to infectious person. Patient denies travel to an Ebola-affected area in the 21 days before illness onset. Initial Sepsis Screen: Does the patient meet any 2 criteria? No. Patient's initial sepsis screen is negative. Does the patient have a suspected source of infection? No. Patient's initial sepsis screen is negative. Risk Assessment: Do you want to hurt yourself or someone else? Patient reports no desire to harm self or others. Onset of symptoms was April 20, 2024. 03:56 Method Of Arrival: EMS rg5 03:56 Acuity: LELA 3 rg5 Triage Assessment: 03:56 General: Appears in no apparent distress. comfortable, Behavior is calm, cooperative, rg5 appropriate for age. Pain: Denies pain. EENT: No deficits noted. Neuro: Level of Consciousness is awake, alert, obeys commands, Oriented to person. Cardiovascular: Denies chest pain, Patient's skin is warm and dry. Respiratory: Airway is patent Trachea midline Respiratory effort is even, Respiratory pattern is regular, symmetrical. GI: Abdomen is round non-distended. : nephrostomy tube. Derm: Skin is intact, Skin is dry, Skin is normal, Skin temperature is warm. Musculoskeletal: Circulation, motion, and sensation intact. Range of motion: intact in all extremities. Historical: - Allergies: 03:56 No Known Allergies; rg5 - PMHx: 03:56 Alzheimer's disease; angina pectoris; Anxiety; Bipolar disorder; BPH; depressive rg5 disorder; hydronephrosis with ureteral stricture (Thyroid problem); Hyperlipidemia; Hypertension; Thyroid problem; - PSHx: 03:56 Nephrostomy tube; rg5 - Immunization history:: Adult Immunizations up to date. - Infectious Disease History:: Denies. - Social history:: Smoking status: unknown. Screenin:08 [facility] ED Fall Risk Assessment (Adult) History of falling in the last 3 months, rg5 including since admission No falls in past 3 months (0 pts) Confusion or Disorientation Yes (5 pts) Intoxicated or Sedated No (0 pts) Impaired Gait Yes (1 pt) Mobility Assist Device Used No (0 pt) Altered Elimination Yes (1 pt) Score/Fall Risk Level 3 or more points = High Risk Oriented to surroundings, Maintained a safe environment, Educated pt \T\ family on fall prevention, incl call for assistance when getting out of bed, Hourly rounding (assess needs \T\ fall precautionary measures) done, Used ambulatory aids as needed (educated on \T\ assisted with). Abuse screen: Denies threats or abuse. Nutritional screening: No deficits noted. Tuberculosis screening: No symptoms or risk factors identified. Assessment: 04:08 Reassessment: see triage assessment. rg5 05:33 Reassessment: No changes from previously documented assessment. Patient and/or family rg5 updated on plan of care and expected duration. Pain level reassessed. 06:35 Reassessment: No changes from previously documented assessment. Patient and/or family rg5 updated on plan of care and expected duration. Pain level reassessed. Vital Signs: 03:56 BP 162 / 79; Pulse 67; Resp 17; Temp 97.8(T); Pulse Ox 99% on R/A; Pain 0/10; rg5 04:52 BP 171 / 91; Pulse 75; Resp 18; Pulse Ox 100% on R/A; Pain 0/10; rg5 05:33 BP 121 / 68; Pulse 88; Resp 18; Pulse Ox 99% ; rg5 06:49 BP 145 / 71; Pulse 69; Resp 17; Pulse Ox 98% ; Pain 0/10; rg5 08:56 BP 157 / 86; Pulse 74; Resp 18; Temp 98; Pulse Ox 98% on R/A; ph 03:56 Pain Scale: Adult rg5 04:52 Pain Scale: Adult rg5 06:49 Pain Scale: Adult rg5 ED Course: 03:52 Patient arrived in ED. [email or web address] 03:52 Estrada Curtis MD is Attending Physician. rt 03:55 Vinnie Hamlin, JOANNA is Primary Nurse. rg5 03:56 Arm band placed on. rg5 04:04 Triage completed. rg5 04:08 Patient has correct armband on for positive identification. Bed in low position. Call rg5 light in reach. Side rails up X 1. Door closed. Noise minimized. Warm blanket given. 04:08 No provider procedures requiring assistance completed. rg5 04:18 CT Abd/Pelvis - Without Contrast In Process Unspecified. EDMS 04:53 Awaiting lab results, Awaiting CT Scan. rg5 07:[address] Preciado called [facility] Transfer center talked to Sj. [id number] Dr. David Luque accepted pt to [facility]. [id number] admin approval by Sj Salgado to Bed 2223 report number [phone] faxed # [phone] called [facility] for transfer talked to Jus. 07:56 Attending Physician role handed off by Estrada Curtis MD cha 07:56 Denzel Preciado MD is Attending Physician. josefina 08:57 Patient transferred, IV remains in place. ph Administered Medications: 07:26 Drug: NS 0.9% IV 500 ml 500 ml IV at 100 ml/hr once; to be given as a bolus over 30 br2 minutes Volume: 500 ml; Route: IV; Rate: 100 ml/hr; Site: right antecubital; 08:00 Follow up: Response: No adverse reaction; IV Status: Completed infusion; IV Intake: ph 500ml Medication: 04:08 VIS not applicable for this client. rg5 Intake: 08:00 IV: 500ml; Total: 500ml. ph Outcome: 07:14 ER care complete, transfer ordered by . rt 08:56 Transferred by ground [facility] [place]. Transfer form completed. X-rays sent w/ ph patient. 08:56 Condition: stable 09:20 Patient left the ED. hb Signatures: Dispatcher [employer] EDMA Denzel Preciado MD MD cha Pinkerton, Shawna sp Hall, Patricia, RN RN Deena Lord RN RN Ange Colin jj6 Estrada Curtis MD MD rt Vinnie Hamlin, RN RN rg5 Imelda Holloway, JOANNA RN br2
--- NOTE | 2024-04-20 07:15 | EDPHYS ---
Physician Documentation [facility] Name: Shea Campbell Age: 78 yrs Sex: Male : 1945 Arrival Date: 04/20/2024 Time: 03:50 Bed 14 Private MD: ED Physician Denzel Preciado HPI: 04/20 04:51 This 78 yrs old Male presents to ER via EMS with complaints of Possible problems with rt nephrostomy tube. 04:51 Patient presents to the ED with no output from his nephrostomy tube for the past 3 rt days, of note, he has a solitary kidney. History is limited due to patient with dementia but he denies any complaints at this time. Symptoms are moderate in severity, no other aggravating or alleviating factors.. Historical: - Allergies: 03:56 No Known Allergies; rg5 - PMHx: 03:56 Alzheimer's disease; angina pectoris; Anxiety; Bipolar disorder; BPH; depressive rg5 disorder; hydronephrosis with ureteral stricture (Thyroid problem); Hyperlipidemia; Hypertension; Thyroid problem; - PSHx: 03:56 Nephrostomy tube; rg5 - Immunization history:: Adult Immunizations up to date. - Infectious Disease History:: Denies. - Social history:: Smoking status: unknown. ROS: 04:51 Unable to obtain ROS due to baseline dementia, rt Exam: 04:51 Constitutional: This is a well developed, well nourished patient who is awake, alert, rt and in no acute distress. Head/Face: Normocephalic, atraumatic. Chest/axilla: Normal chest wall appearance and motion. Nontender with no deformity. No lesions are appreciated. Cardiovascular: Regular rate and rhythm with a normal S1 and S2. No gallops, murmurs, or rubs. Normal PMI, no JVD. No pulse deficits. Respiratory: Lungs have equal breath sounds bilaterally, clear to auscultation and percussion. No rales, rhonchi or wheezes noted. No increased work of breathing, no retractions or nasal flaring. Abdomen/GI: Soft, non-tender, with normal bowel sounds. No distension or tympany. No guarding or rebound. No evidence of tenderness throughout. 04:51 Back: Nephrostomy tube to the left flank, Vital Signs: 03:56 BP 162 / 79; Pulse 67; Resp 17; Temp 97.8(T); Pulse Ox 99% on R/A; Pain 0/10; rg5 04:52 BP 171 / 91; Pulse 75; Resp 18; Pulse Ox 100% on R/A; Pain 0/10; rg5 05:33 BP 121 / 68; Pulse 88; Resp 18; Pulse Ox 99% ; rg5 06:49 BP 145 / 71; Pulse 69; Resp 17; Pulse Ox 98% ; Pain 0/10; rg5 08:56 BP 157 / 86; Pulse 74; Resp 18; Temp 98; Pulse Ox 98% on R/A; ph 03:56 Pain Scale: Adult rg5 04:52 Pain Scale: Adult rg5 06:49 Pain Scale: Adult rg5 MDM: 03:52 Medical Screening Exam initiated rt 07:18 Differential Diagnosis altered mental status, sepsis, flu. Data reviewed: vital signs, [facility] nurses notes, lab test result(s), radiologic studies, CT scan. Consideration of Admission/Observation Escalation of care including admission/observation considered. I considered the following discharge prescriptions or medication management in the emergency department Medications were administered in the Emergency Department. See MAR. Independent interpretation of the following test(s) in the Emergency Department CT Scan: My interpretation is ct stone. Test considered but Not performed: Labs: cbc, comp met. Care significantly affected by the following chronic conditions: Hypertension, alzheimer, cad, anxiety, bipolar, bph. 04/20 03:53 Order name: CBC with Diff; Complete Time: 05:21 rt 04/20 03:53 Order name: CMP; Complete Time: 05:21 rt 04/20 03:53 Order name: CT Abd/Pelvis - Without Contrast; Complete Time: 07:18 rt Administered Medications: 07:26 Drug: NS 0.9% IV 500 ml 500 ml IV at 100 ml/hr once; to be given as a bolus over 30 br2 minutes Volume: 500 ml; Route: IV; Rate: 100 ml/hr; Site: right antecubital; 08:00 Follow up: Response: No adverse reaction; IV Status: Completed infusion; IV Intake: ph 500ml Disposition Summary: 04/20/24 07:14 Transfer Ordered Notes: Transfer Location: [facility] rt Reason: Higher level of care rt Condition: Stable rt Problem: new rt Symptoms: are unchanged rt Accepting Physician: (04/20/24 09:20) hb Diagnosis - Dislodged nephrostomy tube rt - Acute kidney injury rt Forms: - Medication Reconciliation Form rt - SBAR form rt Signatures: Dispatcher [employer] EDDenzel Hatch MD MD cha Baxter, Heather, RN RN hb Estrada Curtis MD MD rt Vinnie Hamlin RN RN rg5 Imelda Holloway RN RN br2 Bridgette Nieto RN ph Corrections: (The following items were deleted from the chart) 03:53 03:53 CBC+H.LAB.BRZ ordered. EDMS EDMS 03:53 03:53 COMPREHENSIVE METABOLIC PANEL+C.LAB.BRZ ordered. EDMS EDMS 03:53 03:53 Abdomen Pelvis Wo Con+CT.RAD.BRZ ordered. EDMS EDMS 07:18 07:18 Urinalysis+U.LAB.BRZ ordered. EDMS EDMS 09:20 07:14 rt hb
[2024-04-20] MEDS ORDERED: NA CHLORIDE 0.9% 1,000 ML ONE (07:23)
[2024-04-20 14:45] VITALS: O2SAT 98
[2024-04-20 14:46] VITALS: BP 157/86; TEMP 98
== END 2024-04-20 09:20 | disposition short-term general hospital (02) ==
LOC: ER 03:50
DX: T83.022A Displacement of nephrostomy catheter, initial encounter (principal); N17.9 Acute kidney failure, unspecified; Z90.5 Acquired absence of kidney; G30.9 Alzheimer's disease, unspecified; F02.80 Dementia in other diseases classified elsewhere, unspecified severity, without behavioral disturbance, psychotic disturbance, mood disturbance, and anxiety
CPT/HCPCS: 85025; 36415; 80053; 74176; 96360; 99285; J7030